=== PATIENT | male | born 1950 | race Caucasian/White ===

== ENCOUNTER 2021-02-01 06:15 | Outpatient (REF) | payer MEDICARE, SELFPAY ==
[2021-02-01 07:00] LABS: MANUAL DIFF FLAG NO
[2021-02-01 07:11] LABS: Basophils Percent Auto 0.6 % (0-2); Eosinophils Absolute Auto 0.1 X10*3/uL (0.0-0.4); Eosinophils Percent Auto 1.3 % (0-4); Imm Gran Abs Auto 0.05 X10*3/uL (0.00-0.03); Imm Gran Pct Auto 0.8 % (0.0-0.4); Lymphocytes Absolute Auto 1.6 X10*3/uL (1.2-4.9); Lymphocytes Percent Auto 24.6 % (20-40); Mean Corpuscular Hemoglobin 30.2 pg (27.0-33.0); Mean Corpuscular Volume 94.3 fL (80-98); Mean Platelet Volume 10.1 fL (9.4-12.4); Monocytes Absolute Auto 0.6 X10*3/uL (0.1-1.2); Monocytes Percent Auto 8.9 % (2-11); Neutrophils Absolute Auto 4.1 X10*3/uL (2.0-8.3); Neutrophils Percent Auto 63.8 % (45-73); Platelet Count 173 X10*3/uL (160-400); Red Cell Distribution Width 14.2 % (11.0-16.0); White Blood Count 6.4 X10*3/uL (4.8-10.8)
[2021-02-01 07:50] LABS: Alanine Aminotransferase 23 U/L (0-40); Albumin Level 4.1 g/dL (3.5-5.0); Alkaline Phosphatase 117 U/L (39-117); Anion Gap 12 (12-20); Aspartate Amino Transferase 25 U/L (5-37); Bilirubin Total 0.5 mg/dL (0.0-1.0); Blood Urea Nitrogen 21 mg/dL (9-16); Calcium 9.3 mg/dL (8.4-10.2); Carbon Dioxide 31 mmol/L (22-29); Chloride 105 mmol/L (96-108); Cholesterol 168 mg/dL; Estimated Glomerular Filt Rate 55; Glucose Fasting 107 mg/dL (60-99); HDL Cholesterol 51 mg/dL; LDL Cholesterol Calculated 93 mg/dl; Potassium 4.9 mmol/L (3.3-5.1); Sodium 143 mmol/L (135-145); Total Protein 6.6 g/dL (6.5-8.0); Triglycerides 124 mg/dL
[2021-02-01 08:07] LABS: Estimated Average Glucose 111 mg/dL; Hemoglobin A1c % 5.5 %
[2021-02-01 08:11] LABS: PSA,Total (Free>4and<10) 0.58 ng/mL (0.00-4.00)
== END 2021-02-01 06:16 | disposition home or self-care (01) ==
LOC: HO.LAB 06:15
PROVIDERS: PCP Internal Medicine; Visit Provider Internal Medicine
DX: I12.9 Hypertensive chronic kidney disease with stage 1 through stage 4 chronic kidney disease, or unspecified chronic kidney disease (principal); N18.9 Chronic kidney disease, unspecified; E78.00 Pure hypercholesterolemia, unspecified; J44.9 Chronic obstructive pulmonary disease, unspecified; R73.03 Prediabetes; Z12.5 Encounter for screening for malignant neoplasm of prostate
CPT/HCPCS: 36415; 80053; 80061; 83036; 84153; 85025

== ENCOUNTER 2021-02-20 12:37 | Outpatient (REF) | payer MEDICARE, SELFPAY ==
[2021-02-20 13:24] LABS: Prothrombin Time 12.4 SEC (10.8-13.0)
== END 2021-02-20 12:38 | disposition home or self-care (01) ==
LOC: HO.LAB 12:37
PROVIDERS: PCP Internal Medicine; Visit Provider Internal Medicine
DX: I48.0 Paroxysmal atrial fibrillation (principal)
CPT/HCPCS: 36415; 85610

== ENCOUNTER 2022-03-31 09:00 | Emergency (ER) | payer MEDICARE, SELFPAY ==
--- NOTE | ~2022-03-31 | XR_ITS ---
EXAMINATION: XR CHEST CLINICAL INFORMATION: Cough COMPARISON: CXR from 06/25/2014 TECHNIQUE: 2 views of the chest were obtained. FINDINGS: Lungs are mildly hyperinflated, and there is suggestion of saber sheath configuration of the trachea. Query if there is any history of chronic obstructive pulmonary disease. The bronchial saenz appear to be mildly thickened. Minimal linear opacity of atelectasis at the level of the lingula. No consolidation or pleural effusion. Cardiac silhouette is normal in size. The pulmonary vascular pattern is normal. The visualized bones are intact. XR/XR chest 2V IMPRESSION: * No evidence of pneumonia. * There are radiographic findings that can be seen in patients with chronic obstructive pulmonary disease. Question if there is history of COPD or smoking history. If an unexplained cough persists, and patient has risk factors, then noncontrast chest CT may be warranted for a more thorough evaluation of the lung parenchyma and airways.
[2022-03-31 09:57] VITALS: BP 174/64; PULSE 64; RESP 19; TEMP 36.6; O2SAT 95; BMI 39.2
--- NOTE | 2022-03-31 10:05 | ED_ITS ---
HPI - URI/Sore Throat General Chief Complaint: Upper Respiratory Symptoms Stated Complaint: cough Time Seen by Provider: 03/31/22 09:32 Source: patient, RN notes reviewed and old records reviewed Mode of arrival: ambulatory Limitations: no limitations History of Present Illness HPI Narrative: This is a 71-year-old male, with a past medical history COPD, hypertension, hyperlipidemia, TIA on Warfarin, who presents today with complaints of productive cough with white colored sputum x 3 weeks. He reports the cough keeps him up at night. He denies any sore throat, ear pain, nasal congestion, rhinorrhea, fevers, chills, shortness of breath, chest pain, palpitations, hemoptysis, nausea, vomiting, diarrhea, or abdominal pain. He has been taking DayQuil for symptoms which has prevented him with no relief. He denies any sick contacts. He was diagnosed with COPD 2 years ago, currently managed by his primary care physician, not currently on any COPD maintenance medications. No other complaints or concerns at this time. MD elicited complaint: cough Pertinent past history: COPD Onset (ago): week(s) (3) Consistency: constant Severity: mild Pain scale (0-10): 0 Description of mucous: other (white) Able to tolerate fluids by mouth: Yes Exacerbating factors: nothing Relieving factors: nothing Associated symptoms: cough Treatments prior to arrival: none Related Data Previous Rx's Medication Instructions Recorded albuterol sulfate 90 mcg/actuation 2 inh inhalation QID PRN shortness 03/31/22 aerosol inhaler of breath or wheezing #6.7 grams azithromycin 250 mg tablet See Rx Instructions PO .COMPLEX #6 03/31/22 (Zithromax Z-Jarad) tabs benzonatate 100 mg capsule 100 mg PO TID PRN cough #20 caps 03/31/22 nicotine (polacrilex) 4 mg gum 4 mg buccal Q2H #40 ea 03/31/22 prednisone 20 mg tablet 40 mg PO DAILY 5 days #10 tabs 03/31/22 Allergies Allergy/AdvReac Type Severity Reaction Status Date / Time No Known Allergies Allergy Unverified 06/08/20 14:52 [No Known Allergies*] Review of Systems Review of Systems: Constitutional: No Fever, No Chills ENT/Mouth: No sore throat, No Rhinorrhea, No Swallowing Difficulty Eyes: No Eye Pain, No Swelling, No Redness Cardiovascular: No Chest Pain, No SOB, No Orthopnea, No Edema Respiratory: +productive cough, No Wheezing, No dyspnea Gastrointestinal: No Nausea, No Vomiting, No Diarrhea, No abdominal Pain, No Hematochezia, No Melena Genitourinary: No Dysuria, No Urinary Frequency, No Hematuria Musculoskeletal: No joint pain, No Myalgias Skin: No Skin Lesions, No rash Neuro: No Weakness, No Numbness, No Dizziness, No Headache Psych: No Anxiety/Panic, No Depression Heme/Lymph: No Bruising, No Lymphadenopathy Endocrine: No Polyuria, No Polydipsia [facility] Social History Social History Advance Directives: No Advance Directives Information Provided: Yes Physical Exam Vital Signs: Vital Signs: Last Vital Signs Temp 96.8 F 03/31/22 11:30 Pulse 60 03/31/22 11:30 Resp 17 03/31/22 11:30 BP 147/77 H 03/31/22 11:30 Pulse Ox 95 03/31/22 11:30 O2 Del Method 03/31/22 11:30 BMI result Body Mass Index 39.2 Appearance: Alert. Oriented X3. No acute distress. Eyes: Pupils equal, round and reactive to light. Extra-occular motions are intact. ENT: Pharynx normal. Tonsils are nonerythematous, nonedematous, uvula is midline. Airway is patent. Auditory canals are clear, TMs nonerythematous, nonbulging. No cervical or anterior lymphadenopathy. Neck: Normal inspection. Neck supple. CVS: Normal heart rate and rhythm. Pulses normal. Respiratory: Coarse lung sounds with scattered rhonchi at the left bases, diminished throughout. No respiratory distress. Abdomen: Soft and nontender. +BS x4 Skin: Skin warm and dry. Normal skin color. Normal skin turgor. No rashes. Extremities: 1+ pitting edema noted bilaterally. No lower extremity edema. Neuro: Oriented X 3. No motor deficit. No sensory deficit. Course Course Course Narrative: This is a 71-year-old male, with a past her history of TIA on Warfarin, hypertension, and hyperlipidemia who presents today with productive cough x 3 weeks. On exam, patient has coarse and diminished lung sounds on exam. DDX: acute bronchitis, pneumonia, uri Plan: Chest X-ray, Duo-nebulizer, Prednisone 60mg PO, COVID testing ordered. Reevaluation(s) Reevaluation #1: Chest x-ray shows no evidence pneumonia. COVID negative. Patient was re-evaluated after updraft. Lungs sounds still coarse, but better air movement throughout all lung rowe. Patient reports some mild improvement, vital signs remained stable throughout his stay. Will treat as an acute bronchitis, will give 5 day course of prednisone (start tomorrow, as given first dose in ED), azithromycin, Tessalon, albuterol inhaler, and nicotine gum. Educated to cut Warfarin dose in half while taking the Azithromycin, and resume his normal dose once the antibiotic is completed per pharmacy recommendations. He is advised to follow-up with his primary care physician next week, also given a referral to a [employer] to be followed for COPD. Patient understands and agrees with plan. Time: 11:26 MDM - URI/Sore Throat Lab Data Labs: Lab Results 03/31/22 Range/Units 09:58 COVID-19 (JAZZY) Negative (Negative) COVID-19 Clin Com See Note Imaging Data Chest x-ray: Attestation: I personally reviewed and interpreted this imaging study as follows: Radiologist's impression: No evidence of pneumonia. There are radiographic findings that can be seen in patients with chronic obstructive pulmonary disease. Question if there is a history of COPD or smoking history. If an unexplained cough persists, and patient has risk factors, and noncontrast chest CT may be warranted for more thorough evaluation the lung parenchyma and airways. Dictated by: Brady Macario MD Critical Care Time Critical Care Time Critical Care Time: No Discharge Plan Discharge Clinical Impression: Bronchitis, COPD (chronic obstructive pulmonary disease) Patient Disposition: Home, Self-Care Instructions: Acute Bronchitis (ED), COPD (Chronic Obstructive Pulmonary Disease) (ED) Additional Instructions: Please take the prescribed antibiotic, Azithromycin, as directed. Complete the antibiotic prescription, even if your symptoms improve. Cut your warfarin dosage in half while taking Azithromycin as this increases your bleeding risk. Resume your normal warfarin dosage once you complete the Azithromycin. Please take the albuterol inhaler as needed for shortness of breath or wheezing. Please take Benzonatate three times a day as needed for cough. You can also try over the counter Mucinex. Please take the prednisone prescription as directed. Drink plenty of fluids and get plenty of rest. Please follow up with your primary care physician, and call the attached referral, [employer] for further management and treatment of your COPD. Stop Smoking. Try nicotine gum. Your chest x-ray today showed no evidence of pneumonia. If you develop new or worsening symptoms call 911 or come back to the ER for further evaluation. Prescriptions: New azithromycin [Zithromax Z-Jarad] 250 mg tablet See Rx Instructions .ROUTE .COMPLEX Qty: 6 0RF Rx Instructions: take 500 mg today (day 1), then 250 mg for 4 days (days 2-5) prednisone 20 mg tablet 40 mg PO DAILY 5 Days Qty: 10 0RF albuterol sulfate 90 mcg/actuation HFA aerosol inhaler 2 inh inhalation QID PRN (Reason: shortness of breath or wheezing) Qty: 6.7 0RF benzonatate 100 mg capsule 100 mg PO TID PRN (Reason: cough) Qty: 20 0RF nicotine (polacrilex) 4 mg gum 4 mg buccal Q2H Qty: 40 0RF Referrals: Erwin Serrato MD [Physician] - (COPD, not managed on any maintenance medications. ) Interventions: ED Discharge Assessment Last Done: 03/31/22 11:40 Discharge Date/Time: 03/31/22 11:40
[2022-03-31 10:15] LABS: COVID-19 Test Negative (Negative)
[2022-03-31] MEDS: Albuterol/Iprat 2.5/0.5MG 3 ML AMPUL.NEB INHALE (10:52)
[2022-03-31 10:54] VITALS: PULSE 61; RESP 14; O2SAT 98
[2022-03-31] MEDS: predniSONE 20 MG TABLET 60 MG PO (11:02)
[2022-03-31 11:30] VITALS: BP 147/77; PULSE 60; RESP 17; TEMP 36; O2SAT 95
== END 2022-03-31 11:40 | disposition home or self-care (01) ==
PROVIDERS: Physician Assistant; Emergency Provider Emergency Medicine; PCP Internal Medicine
DX: J44.9 Chronic obstructive pulmonary disease, unspecified (principal); Z20.822 Contact with and (suspected) exposure to COVID-19; R60.0 Localized edema; I10 Essential (primary) hypertension; E78.5 Hyperlipidemia, unspecified; Z86.73 Personal history of transient ischemic attack (TIA), and cerebral infarction without residual deficits; Z79.01 Long term (current) use of anticoagulants; Z87.891 Personal history of nicotine dependence
CPT/HCPCS: 71046; 87635; 94640; 99284

== ENCOUNTER 2022-08-14 12:02 | Outpatient (REF) | payer MEDICARE, SELFPAY ==
[2022-08-14 12:40] LABS: MANUAL DIFF FLAG NO
[2022-08-14 12:41] LABS: Basophils Percent Auto 0.7 % (0-2); Eosinophils Absolute Auto 0.1 X10*3/uL (0.0-0.4); Eosinophils Percent Auto 1.6 % (0-4); Hematocrit 49.1 % (42.0-52.0); Hemoglobin 16.3 g/dl (14.0-18.0); Imm Gran Abs Auto 0.02 X10*3/uL (0.00-0.03); Imm Gran Pct Auto 0.4 % (0.0-0.4); Lymphocytes Absolute Auto 1.5 X10*3/uL (1.2-4.9); Lymphocytes Percent Auto 27.2 % (20-40); Mean Corpuscular HGB Conc 33.2 g/dl (31.0-36.0); Mean Corpuscular Hemoglobin 30.5 pg (27.0-33.0); Mean Corpuscular Volume 91.8 fL (80.0-98.0); Mean Platelet Volume 9.5 fL (9.4-12.4); Monocytes Absolute Auto 0.4 X10*3/uL (0.1-1.2); Monocytes Percent Auto 7.7 % (2-11); Neutrophils Absolute Auto 3.4 x10*3/uL (2.0-8.3); Neutrophils Percent Auto 62.4 % (45-73); Platelet Count 145 X10*3/uL (160-400); Red Blood Count 5.35 X10*6/uL (4.60-5.80); Red Cell Distribution Width 13.4 % (11.0-16.0); White Blood Count 5.5 X10*3/uL (4.8-10.8)
[2022-08-14 12:43] LABS: Appearance Urine Clear; Color Urine Yellow; Glucose Urine UA Negative (Negative); Leukocyte Esterase Urine Negative (Negative); Nitrite Urine Negative (Negative); PH 5.5 (5.0-9.0); Specific Gravity - Urine 1.015 (1.005-1.025); UMIC TRIGGER UA YES; Urine Blood Small (1+) (Negative); Urine Ketones Negative (Negative); Urine Protein 300 (3+) mg/dL (Neg-Trace)
[2022-08-14 12:51] LABS: Bacteria Urine None Seen (None Seen); Hyaline Casts Urine 0-2 /LPF (0-2); Squamous Epithelial Cell Urine 0-2 /HPF (0-2); WBC Urine 0-5 /HPF (0-5)
[2022-08-14 13:51] LABS: Alanine Aminotransferase 22 U/L (0-40); Albumin Level 3.7 g/dL (3.5-5.0); Alkaline Phosphatase 109 U/L (39-117); Anion Gap 15 (12-20); Aspartate Amino Transferase 32 U/L (5-37); Bilirubin Total 0.5 mg/dL (0.0-1.0); Blood Urea Nitrogen 19 mg/dL (9-16); Calcium 8.9 mg/dL (8.4-10.2); Carbon Dioxide 28 mmol/L (22-29); Chloride 104 mmol/L (96-108); Cholesterol 185 mg/dL; Estimated Glomerular Filt Rate > 60; Glucose Random 96 mg/dL (60-115); Potassium 4.7 mmol/L (3.3-5.1); Prostate Specific Antigen Scr 0.79 ng/mL (<0.05-4.0); Sodium 142 mmol/L (135-145); Total Protein 6.4 g/dL (6.5-8.0)
== END 2022-08-14 12:03 | disposition home or self-care (01) ==
LOC: HO.10HDL 12:02
PROVIDERS: Visit Provider Internal Medicine
DX: Z12.5 Encounter for screening for malignant neoplasm of prostate (principal); I10 Essential (primary) hypertension; J44.9 Chronic obstructive pulmonary disease, unspecified; E78.00 Pure hypercholesterolemia, unspecified
CPT/HCPCS: 36415; 80053; 81001; 82465; 84153; 85025

== ENCOUNTER 2023-08-22 11:17 | Outpatient (REF) | payer MEDICARE, SELFPAY ==
[2023-08-22 11:34] LABS: MANUAL DIFF FLAG NO
[2023-08-22 12:20] LABS: Basophils Absolute Auto 0.1 X10*3/uL (0.0-0.2); Eosinophils Absolute Auto 0.1 X10*3/uL (0.0-0.4); Hematocrit 47.5 % (42.0-52.0); Hemoglobin 15.8 g/dl (14.0-18.0); Imm Gran Abs Auto 0.02 X10*3/uL (0.00-0.03); Imm Gran Pct Auto 0.3 % (0.0-0.4); Lymphocytes Absolute Auto 1.3 X10*3/uL (1.2-4.9); Lymphocytes Percent Auto 22.4 % (20-40); Mean Corpuscular HGB Conc 33.3 g/dl (31.0-36.0); Mean Corpuscular Hemoglobin 30.1 pg (27.0-33.0); Mean Corpuscular Volume 90.5 fL (80.0-98.0); Mean Platelet Volume 9.9 fL (9.4-12.4); Monocytes Absolute Auto 0.5 X10*3/uL (0.1-1.2); Monocytes Percent Auto 7.7 % (2-11); Neutrophils Percent Auto 67.6 % (45-73); Platelet Count 150 X10*3/uL (160-400); Red Blood Count 5.25 X10*6/uL (4.60-5.80); Red Cell Distribution Width 13.6 % (11.0-16.0); White Blood Count 5.9 X10*3/uL (4.8-10.8)
[2023-08-22 12:24] LABS: Appearance Urine Clear; Color Urine Yellow; Glucose Urine UA Negative (Negative); Leukocyte Esterase Urine Negative (Negative); Nitrite Urine Negative (Negative); PH 5.5 (5.0-9.0); Specific Gravity - Urine 1.015 (1.005-1.025); UMIC TRIGGER UA YES; Urine Blood Small (1+) (Negative); Urine Ketones Negative (Negative); Urine Protein 300 (3+) mg/dL (Neg-Trace)
[2023-08-22 12:28] LABS: Prothrombin Time 11.6 SEC (11.1-13.3)
[2023-08-22 12:42] LABS: Bacteria Urine Trace (None Seen); Hyaline Casts Urine 0-2 /LPF (0-2); RBC Urine 0-2 /HPF (0-2); Squamous Epithelial Cell Urine 0-2 /HPF (0-2); WBC Urine 0-5 /HPF (0-5)
[2023-08-22 12:53] LABS: Alanine Aminotransferase 19 U/L (0-40); Albumin Level 3.8 g/dL (3.5-5.0); Alkaline Phosphatase 111 U/L (39-117); Anion Gap 13 (12-20); Aspartate Amino Transferase 28 U/L (5-37); Bilirubin Total 0.4 mg/dL (0.0-1.0); Blood Urea Nitrogen 18 mg/dL (9-16); Calcium 9.2 mg/dL (8.4-10.2); Carbon Dioxide 28 mmol/L (22-29); Chloride 105 mmol/L (96-108); Cholesterol 174 mg/dL (<200); Estimated Glomerular Filt Rate 51; Glucose Fasting 92 mg/dL (60-99); HDL Cholesterol 55 mg/dL (>40); LDL Cholesterol Calculated 81 mg/dL (<100); Potassium 4.7 mmol/L (3.3-5.1); Sodium 141 mmol/L (135-145); Total Protein 6.9 g/dL (6.5-8.0); Triglycerides 194 mg/dL (<150)
== END 2023-08-22 11:18 | disposition home or self-care (01) ==
LOC: HO.LAB 11:17
PROVIDERS: PCP Internal Medicine; Visit Provider Internal Medicine
DX: Z12.5 Encounter for screening for malignant neoplasm of prostate (principal); J44.9 Chronic obstructive pulmonary disease, unspecified; I10 Essential (primary) hypertension; E78.00 Pure hypercholesterolemia, unspecified; I48.0 Paroxysmal atrial fibrillation; N40.0 Benign prostatic hyperplasia without lower urinary tract symptoms
CPT/HCPCS: 36415; 80053; 80061; 81001; 84153; 85025; 85610

== ENCOUNTER 2023-09-22 08:27 | Emergency (ER) | payer MEDICARE, SELFPAY ==
--- NOTE | ~2023-09-22 | XR_ITS ---
EXAMINATION: XR CHEST CLINICAL INFORMATION: Shortness of breath. COMPARISON: Most recent chest radiograph dated 03/31/2022. TECHNIQUE: Two views of the chest were obtained. FINDINGS: Minimal left basilar atelectasis. No focal airspace consolidation. No pleural effusion or pneumothorax. Stable cardiomediastinal silhouette. Mild hyperexpansion of the lung apices with saber-sheath appearance of the trachea, unchanged. Findings can be seen in the setting of COPD. XR/XR chest 2V IMPRESSION: Minimal left basilar atelectasis. Chronic findings which can be seen in the setting of COPD, unchanged.
[2023-09-22 08:53] VITALS: BP 118/64; PULSE 118; RESP 16; TEMP 36.6; O2SAT 95; BMI 72.7
[2023-09-22 09:24] LABS: COVID-19 Test Negative (Negative); IDNOW Serial# 08D9AD1C; IDNOW Serial# BCCEAD1C; Influenza A Negative (Negative); Influenza B2 Negative (Negative)
[2023-09-22 13:52] VITALS: BP 133/59; PULSE 76; RESP 16; TEMP 36.6; O2SAT 95
--- NOTE | 2023-09-22 14:01 | ED.URI ---
HPI - URI/Sore Throat General Chief Complaint: Upper Respiratory Symptoms Stated Complaint: Diff breathing Time Seen by Provider: 09/22/23 13:48 Source: patient and family Mode of arrival: ambulatory Limitations: no limitations History of Present Illness HPI Narrative: Patient comes to the emergency room accompanied by his . Patient states that for 1 week he has been coughing. Patient reports no chest pain, no fever or chills. No increase in sputum production, no oxygen desaturations. Related Data Previous Rx's Medication Instructions Recorded albuterol sulfate 90 mcg/actuation 2 inh inhalation QID PRN shortness 03/31/22 aerosol inhaler of breath or wheezing #6.7 grams azithromycin 250 mg tablet See Rx Instructions PO .COMPLEX #6 03/31/22 (Zithromax Z-Jarad) tabs benzonatate 100 mg capsule 100 mg PO TID PRN cough #20 caps 03/31/22 nicotine (polacrilex) 4 mg gum 4 mg buccal Q2H #40 ea 03/31/22 prednisone 20 mg tablet 40 mg (2 x 20 mg) PO DAILY 5 days 03/31/22 #10 tabs albuterol sulfate 90 mcg/actuation 2 puff inhalation Q4-6H PRN 09/22/23 aerosol inhaler shortness of breath or wheezing #8.5 grams benzonatate 100 mg capsule 100 mg PO TID PRN cough #10 caps 09/22/23 prednisone 50 mg tablet 50 mg PO DAILY #4 tabs 09/22/23 Allergies Allergy/AdvReac Type Severity Reaction Status Date / Time No Known Allergies Allergy Verified 09/22/23 08:55 [No Known Allergies*] Review of Systems Review of Systems: Constitutional : No Weight loss, No Fever, No Chills, No Night Sweats, No Fatigue, No Malaise ENT/Mouth : No Hearing loss, No Ear Pain, No Nasal Congestion, No Sinus Pain, No Hoarseness, No sore throat, No Rhinorrhea, No Swallowing Difficulty Eyes: No Eye Pain, No Swelling, No Redness, No Foreign Body, No Discharge, No Vision Changes Cardiovascular : No Chest Pain, No SOB, No Dyspnea on Exertion, No Orthopnea, No Edema, No Palpitations Respiratory : Complaining of dry cough, intermittent wheezing, No Dyspnea Gastrointestinal : No Nausea, No Vomiting, No Diarrhea, No Constipation, No abdominal Pain, No Hematochezia, No Melena Genitourinary : no irregular bleeding, No Dysuria, No Urinary Frequency, No Hematuria, No Urinary Incontinence, No Urgency, No Flank Pain, No Urinary Flow Changes, No Hesitancy Musculoskeletal : No joint pain, No Myalgias, No Joint Swelling Skin : No Skin Lesions, No rash Neuro : No Weakness, No Numbness, No Paresthesias, No Loss of Consciousness, No Dizziness, No Headache Psych : No Anxiety/Panic, No Depression, No SI/HI/AH/VH, No Social Issues, Heme/Lymph: No Bruising, No Bleeding,No Lymphadenopathy Endocrine : No Polyuria, No Polydipsia, No Temperature Intolerance PMFSH Past Medical History Onset Date is defined in the Problem List Problems that require an onset date and time if occurred within 24 hrs of arrival to the ED Aortic Dissection and Rupture; Neurologic impairment; Cardiopulmonary Arrest; Endotracheal Intubation; Insertion or Replacement of Mechanical Circulatory Assist Device Medical History (Updated 09/22/23 @ 14:11 by Li Wade MD) Hypertension 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 Oriented X3. No acute distress. Eyes: Pupils equal, round and reactive to light. ENT: Pharynx normal. Neck: Normal inspection. Neck supple. No lymph nodes noted. No crepitus CVS: Normal heart rate and rhythm. Pulses normal. Normal S1 and S2 Respiratory: No respiratory distress. Breath sounds normal. No Wheezing. No rales Abdomen: Soft and nontender. No rigidity. No distention. Skin: Skin warm and dry. Normal skin color. Normal skin turgor. Extremities: No lower extremity edema. No Lacerations. No Rash Neuro: Oriented X 3. No motor deficit. No sensory deficit. Moving all extremities. No slurred speech. CN 2 through 12 grossly intact Psych: calm, cooperative, normal affect Medical Decision Making Medical Decision Making [facility] Narrative: -on physical exam, patient's lungs are clear, no wheezing -my interpretation of chest x-ray: No infiltrates -my interpretation of labs: Negative for influenza and COVID Differential Diagnosis Differential Diagnoses: The differential diagnosis associated with the presentation includes (Pneumonia, COVID, influenza, viral URI, chronic lung disease) Lab Data [facility] Lab Attestation statement: I reviewed the patient's lab results. Labs: Lab Results 09/22/23 Range/Units 09:04 COVID-19 (JAZZY) Negative (Negative) COVID-19 Clin Com See Note Influenza Type A (BUCKY) Negative (Negative) Influenza Type B (BUCKY) Negative (Negative) Influenza A & B Note See Note Independent Interpretation I performed an independent interpretation of an: Plain X-Ray Radiology Impression Discussion of test interpretation with radiology: I have reviewed the radiologist's reading. Radiologist Impression: Minimal left basilar atelectasis. No focal airspace consolidation. No pleural effusion or pneumothorax. Stable cardiomediastinal silhouette. Mild hyperexpansion of the lung apices with saber-sheath appearance of the trachea, unchanged. Findings can be seen in the setting of COPD. XR/XR chest 2V IMPRESSION: Minimal left basilar atelectasis. Chronic findings which can be seen in the setting of COPD, unchanged. Discharge Plan Discharge Clinical Impression: Viral bronchitis Patient Disposition: Home, Self-Care Instructions: Acute Bronchitis (ED) Additional Instructions: Please follow-up with your primary care physician tomorrow. If you have any worsening or new symptoms, please return to the emergency room or call 911 Prescriptions: New albuterol sulfate 90 mcg/actuation HFA aerosol inhaler 2 puff inhalation Q4-6H PRN (Reason: shortness of breath or wheezing) Qty: 8.5 1RF prednisone 50 mg tablet 50 mg PO DAILY Qty: 4 0RF benzonatate 100 mg capsule 100 mg PO TID PRN (Reason: cough) Qty: 10 0RF No Action azithromycin [Zithromax Z-Jarad] 250 mg tablet See Rx Instructions .ROUTE .COMPLEX Qty: 6 0RF Rx Instructions: take 500 mg today (day 1), then 250 mg for 4 days (days 2-5) prednisone 20 mg tablet 40 mg PO DAILY 5 Days Qty: 10 0RF albuterol sulfate 90 mcg/actuation HFA aerosol inhaler 2 inh inhalation QID PRN (Reason: shortness of breath or wheezing) Qty: 6.7 0RF benzonatate 100 mg capsule 100 mg PO TID PRN (Reason: cough) Qty: 20 0RF nicotine (polacrilex) 4 mg gum 4 mg buccal Q2H Qty: 40 0RF
[2023-09-22] MEDS: Benzonatate 100 MG CAPSULE PO (14:11)
[2023-09-22] MEDS: predniSONE 20 MG TABLET 60 MG PO (14:12)
== END 2023-09-22 14:28 | disposition home or self-care (01) ==
PROVIDERS: Emergency Provider Emergency Medicine; PCP Internal Medicine
DX: J20.8 Acute bronchitis due to other specified organisms (principal); I10 Essential (primary) hypertension; J44.9 Chronic obstructive pulmonary disease, unspecified; Z79.01 Long term (current) use of anticoagulants; Z11.52 Encounter for screening for COVID-19
CPT/HCPCS: 71046; 87502; 87635; 99283; 99284

== ENCOUNTER 2024-04-19 13:23 | Inpatient (IN) | payer MEDICARE, SELFPAY ==
[2024-04-19] VITALS (11 sets, daily range): BP systolic 103–148; BP diastolic 57–109; PULSE 100–149; RESP 20–24; TEMP 36.4–36.6; O2SAT 96–98; BMI 37.8
--- NOTE | 2024-04-19 | ECG_ITS ---
Test Reason : tachycardia Blood Pressure : / mmHG Vent. Rate : 150 BPM Atrial Rate : 150 BPM P-R Int : 150 ms QRS Dur : 122 ms QT Int : 352 ms P-R-T Axes : 038 -31 037 degrees QTc Int : 556 ms SVT vs atrial flutter Left axis deviation Right bundle branch block Inferior infarct , age undetermined Anterolateral infarct - Q waves and ST elevations. Abnormal ECG When compared with ECG of 25-JUN-2014 21:49, Significant changes compared to previous ECG including anterolateral infarct with ST elevations. Referred By: Generic ED Physician Electronically Signed By:Marvel Devlin
--- NOTE | ~2024-04-19 | XR_ITS ---
EXAMINATION: XR CHEST CLINICAL INFORMATION: Chest pain COMPARISON: 09/22/2023 TECHNIQUE: Frontal view of the chest was obtained. FINDINGS: Since the prior study, a left chest wall 3-lead pacemaker has been placed in good position. The heart remains mildly enlarged. There is no gross evidence of CHF. The lungs are hyperinflated, better demonstrated on the prior study when there was a lateral radiograph. Some bibasilar scarring is present. There is an ill-defined area of increased density seen which overlies the fourth anterior left rib likely a compilation of shadows with similar findings seen on the right. No gross consolidation. XR/XR chest 1V IMPRESSION: No acute intrathoracic disease. Interval placement of pacemaker.
--- NOTE | 2024-04-19 13:37 | ED_ITS ---
HPI - Arrhythmia/Palpitations General Chief Complaint: Arrhythmia/Palpitations Stated Complaint: TACHY 140-150 X 2 DAYS, RECENT STEMI Time Seen by Provider: 04/19/24 13:30 Source: patient Mode of arrival: EMS History of Present Illness HPI narrative: This is a 73 [facility], he arrived with a heart rate of about 140-150. Patient has history of STEMI complicated by cardiac arrest he had a complete heart block Ed dual-chamber ICD. MD complaint: rapid heart beat, heart racing and palpitations Onset (ago): day(s) (1) Duration: constant Severity: moderate Context: occurred during rest Arrhythmia history: AICD Associated symptoms: denies other symptoms Related Data Previous Rx's ?Medication ?Instructions ?Recorded albuterol sulfate 90 mcg/actuation 2 inh inhalation QID PRN shortness 03/31/22 aerosol inhaler of breath or wheezing #6.7 grams azithromycin 250 mg tablet See Rx Instructions PO .COMPLEX #6 03/31/22 (Zithromax Z-Jarad) tabs benzonatate 100 mg capsule 100 mg PO TID PRN cough #20 caps 03/31/22 nicotine (polacrilex) 4 mg gum 4 mg buccal Q2H #40 ea 03/31/22 prednisone 20 mg tablet 40 mg (2 x 20 mg) PO DAILY 5 days 03/31/22 #10 tabs albuterol sulfate 90 mcg/actuation 2 puff inhalation Q4-6H PRN 09/22/23 aerosol inhaler shortness of breath or wheezing #8.5 grams benzonatate 100 mg capsule 100 mg PO TID PRN cough #10 caps 09/22/23 prednisone 50 mg tablet 50 mg PO DAILY #4 tabs 09/22/23 Allergies Allergy/AdvReac Type Severity Reaction Status Date / Time No Known Allergies Allergy Verified 04/19/24 13:45 [No Known Allergies*] Review of Systems 2 Eyes: Eyes: Reports no additional eye complaints Cardiovascular: Cardiovascular: Reports no additional cardiovascular complaints [facility] Past Medical History Attestation statement: The following information was validated with the patient. [facility] Narrative: Cardiac arrest complicated by complete heart block requiring dual-chamber pacemaker ICD Medical History Hypertension Hx of long-term use of blood thinners COPD (chronic obstructive pulmonary disease) Social History Social History Smoked in Last 30 Days: No Use of substances other than those prescribed or required for medical reasons: No Advance Directives: No Advance Directives Information Provided: Yes Do you have a plan to hurt others: No Plan Physical Exam 2 Vital Signs: Vital Signs: Last Vital Signs Temp 97.5 F 04/19/24 14:42 Pulse 147 H 04/19/24 14:42 Resp 24 H 04/19/24 14:42 BP 148/109 H 04/19/24 14:42 Pulse Ox 98 04/19/24 14:42 O2 Del Method Room Air 04/19/24 14:42 BMI result Body Mass Index 37.8 Const: General: cooperative Nutritional Appearance: well nourished O rientation/consciousness: oriented to person and patient oriented x3 HEENT: Head: Yes normal to inspection Ears: hearing grossly normal bilaterally Face and sinus: Yes normal facial exam Throat: Yes posterior oropharynx normal Neck: Neck: Yes normal visual inspection Resp: Effort & Inspection: normal respiratory effort Auscultation: clear to auscultation bilaterally Cardio: Jugular venous distension: no JVD Rate: tachycardic GI: Inspection: Yes normal to inspection Palpation (GI): Soft to palpation, not firm and nontender Auscultation: normal bowel sounds Skin: General skin exam: no rashes or lesions noted and elasticity normal L esions: no lesions Neuro: General: oriented to person and patient oriented x3 Cranial nerves: Yes CN's II-XII intact bilaterally Course Reevaluation(s) Reevaluation #1: 5 mg lopressor x2 IV no changes Time: 14:17 Reevaluation #2: Adenosine 6 mg showed that th pt is in atrial flutter Reevaluation #3: seen by Dr Devlin cardiology Time: 14:18 Medications Administered Discontinued Medications Generic Name Dose Route Start Last Admin Trade Name Viridiana PRN Reason Stop Dose Admin Adenosine 6 mg 04/19/24 14:02 04/19/24 14:15 Adenosine 6 Mg/2 Ml Vial IVPUSH 04/19/24 14:03 6 mg ONCE ONE Administration Digoxin 0.25 mg 04/19/24 14:12 04/19/24 14:19 Digoxin 0.5 Mg/2 Ml Ampul IVPUSH 04/19/24 14:13 0.25 mg ONCE ONE Administration Digoxin 0.25 mg 04/19/24 14:12 04/19/24 14:19 Digoxin 0.5 Mg/2 Ml Ampul IVPUSH 04/19/24 14:13 0.25 mg ONCE ONE Administration Metoprolol Tartrate 5 mg 04/19/24 13:35 04/19/24 13:47 Metoprolol Tartrate 5 Mg/5 Ml Vial IVPUSH 04/19/24 13:36 5 mg ONCE ONE Administration Protocol Metoprolol Tartrate 5 mg 04/19/24 13:43 04/19/24 13:47 Metoprolol Tartrate 5 Mg/5 Ml Vial IVPUSH 04/19/24 13:44 5 mg ONCE ONE Administration Protocol Medical Decision Making Medical Decision Making [facility] Narrative: Patient presented with tachycardia will get labs EKG reassess Differential Diagnosis Differential Diagnoses: The differential diagnosis associated with the presentation includes SVT/rapid AFib/rapid flutter Admission/Observation Consideration of admission/observation: Escalation of care including admission/observation considered Consult Healthcare Provider Management of the patient was discussed with: Hospitalist Dr Devlin (back pad inspector) Lab Data [facility] Lab Attestation statement: I reviewed the patient's lab results. 04/19/24 14:01 04/19/24 14:01 Labs: Lab Results 04/19/24 Range/Units 14:01 WBC 6.2 (4.8-10.8) X10*3/uL RBC 3.19 L D (4.60-5.80) X10*6/uL Hgb 9.9 L D (14.0-18.0) g/dl Hct 30.3 L D (42.0-52.0) % MCV 95.0 (80.0-98.0) fL MCH 31.0 (27.0-33.0) pg MCHC 32.7 (31.0-36.0) g/dl RDW 15.0 (11.0-16.0) % Plt Count 161 (160-400) X10*3/uL MPV 9.9 (9.4-12.4) fL Immature Gran % (Auto) 0.5 H (0.0-0.4) % Neut % (Auto) 65.5 (45-73) % Lymph % (Auto) 22.0 (20-40) % [place] % (Auto) 8.2 (2-11) % Eos % (Auto) 2.4 (0-4) % Baso % (Auto) 1.4 (0-2) % Lymph # (Auto) 1.4 (1.2-4.9) X10*3/uL [place] # (Auto) 0.5 (0.1-1.2) X10*3/uL Eos # (Auto) 0.2 (0.0-0.4) X10*3/uL Baso # (Auto) 0.1 (0.0-0.2) X10*3/uL Abs Immat Gran (auto) 0.03 (0.00-0.03) X10*3/uL Absolute Neuts (auto) 4.1 (2.0-8.3) x10*3/uL Absolute Nucleated RBC 0.000 (0.0-0.012) X10*3/uL Nucleated RBC % (auto) 0.0 (0.0-0.2) /100WBC PT 13.2 (11.1-13.3) SEC INR 1.1 (0.9-1.1) Sodium 142 (135-145) mmol/L Potassium 4.1 (3.3-5.1) mmol/L Chloride 107 (96-108) mmol/L Carbon Dioxide 22 (22-29) mmol/L Anion Gap 17 (12-20) BUN 57 H (9-16) mg/dL Creatinine 3.75 H (0.5-1.4) mg/dL Estim Creat Clear Calc 22.3 Estimated GFR 16 Random Glucose 105 (60-115) mg/dL Calcium 8.8 (8.4-10.2) mg/dL Total Bilirubin 0.9 (0.0-1.0) mg/dL AST 24 (5-37) U/L ALT 23 (0-40) U/L Alkaline Phosphatase 247 H (39-117) U/L Troponin I High Sens 121.1 H* (<3.5-35.0) ng/L Total Protein 6.8 (6.5-8.0) g/dL Albumin 3.5 (3.5-5.0) g/dL Independent Interpretation I performed an independent interpretation of an: EKG and Rhythm Strip Interpretation: I personally review and interpreted the EKG rhythm strips as atrial flutter with rapid ventricular response Radiology Impression Discussion of test interpretation with radiology: I have reviewed the radiologist's reading. Independent Historian Clinical information obtained from an independent historian. History obtained from or confirmed by: EMS [facility] record External Record Review External record reviewed: Outpatient record [facility] record Chronic Conditions CAD/pacemaker Critical Care Time Critical Care Time Critical Care Time: Yes Total Critical Care Time: 90 Attestation: iv [id number],IV adenosin,IV digoxin Discharge Plan Discharge Patient Disposition: Admitted As Inpatient Print Language: Mongolian
[2024-04-19] MEDS: Metoprolol Tartrate 5 MG/5 ML VIAL IVPUSH ×3 (13:47→17:56)
[2024-04-19 14:09] LABS: MANUAL DIFF FLAG NO
[2024-04-19] MEDS: Adenosine 6 MG/2 ML VIAL IVPUSH (14:15)
--- NOTE | 2024-04-19 14:15 | PM.CNCAR ---
History of Present Illness History of Present Illness Date of Service: 04/19/24 Requesting physician: Darrian Haynes Chief complaint: TACHY 140-150 X 2 DAYS, RECENT cardiac arrest Narrative: 73-year-old gentleman who recently left [facility] after he presented with cardiac arrest with ventricular fibrillation and cardiogenic shock with ischemic cardiomyopathy EF of 30-35% with akinesis of anterior wall and apex. Cardiac catheterization showed [employer] of the LAD and proximal right coronary artery with 70% stenosis in the circumflex artery. He was referred for bypass surgery but was felt not a good candidate for surgery. Subsequently developed complete heart block and had a dual-chamber ICD placed and discharged to rehab. He was on aspirin and Plavix. Carvedilol 6.25 mg twice a day and isosorbide hydralazine combination. Apparently while at rehab today he was noticed to be more confused and tachycardic. Based on the chart review in [facility] he had encephalopathy post cardiac arrest and there was some question about anoxic injury also. In any case he is little confused currently. His heart rate is 150 beats per minute in concern is whether he has SVT versus atrial flutter. He is denying any chest pain or shortness of breath. We tried 6 mg of adenosine which slowed his heart rate and we clearly saw flutter waves in the background. No further adenosine was tried after that. [facility] Past Medical History Medical History Hypertension Hx of senior care use of blood thinners COPD (chronic obstructive pulmonary disease) Meds Allergies Allergy/AdvReac Type Severity Reaction Status Date / Time No Known Allergies Allergy Verified 04/19/24 13:45 [No Known Allergies*] Physical Exam Vital Signs: Vital Signs: Last Vital Signs Temp 97.5 F 04/19/24 13:41 Pulse 147 H 04/19/24 13:41 Resp 24 H 04/19/24 13:41 BP 148/109 H 04/19/24 13:41 Pulse Ox 98 04/19/24 13:41 O2 Del Method Room Air 04/19/24 13:41 BMI result Body Mass Index 37.8 GENERAL APPEARANCE: Obese, in no distress. Confused. NECK: no carotid bruit, no obvious jugular venous distention. SKIN: no suspicious lesions, warm and dry. HEART: no murmurs, regular tachycardic. LUNGS: clear to auscultation anteriorly. ABDOMEN: soft, nontender. EXTREMITIES: no edema. PERIPHERAL PULSES: equal. NEUROLOGIC: No gross deficits, confused. Objective Labs and Meds 04/19/24 14:01 04/19/24 14:01 Assessment and Plan (1) Atrial flutter: Status: Acute (2) Ischemic cardiomyopathy: Status: Acute Plan 73 year gentleman with complex cardiovascular history with recent cardiac arrest from ventricular fibrillation and cardiogenic shock for which he was supported with Impella. Cardiac catheterization showed [employer] of LAD and RCA with 70% circumflex stenosis. He was referred for bypass surgery but was deemed not a good surgical candidate. Subsequently developed complete heart block and had dual lead ICD placed. He was discharged to nursing facility from where he is presenting now with confusion and tachycardia. It appears he had some encephalopathy after cardiac arrest. His initial blood pressure was 148/109. Currently his blood pressure is 100/60 after receiving IV metoprolol. We gave him 6 mg of adenosine which clearly showed atrial flutter as the underlying rhythm. He subsequently went back into heart rates of 140s to 150s. Avoid Cardizem and verapamil. Metoprolol 25 mg 3 times a day. Give him digoxin 500 mcg IV followed by a 2nd dose in 6 hours. He has ICD which has pacemaker function too and will not let his heart rate goes below 40. He was discharged on aspirin and Plavix. Wait for his labs to come back. If his creatinine is good and he is not in acute renal failure then give him Eliquis 5 mg twice a day and in that situation aspirin can be stopped. If on the other hand he has acute kidney injury then can use heparin or Lovenox. Hold home dose of carvedilol. Hold hydralazine and isosorbide till his blood pressure improves. Thank you for allowing me to participate in the care of your patient. Please feel free to contact me if you have any questions. Procedures Date of Service Date of Service: 04/19/24
[2024-04-19 14:18] LABS: INTERNATIONAL NORM RATIO 1.1 (0.9-1.1); Prothrombin Time 13.2 SEC (11.1-13.3)
[2024-04-19] MEDS: Digoxin 0.5 MG/2 ML AMPUL 0.25 MG IVPUSH ×3 (14:19→17:13)
[2024-04-19 14:23] LABS: Basophils Absolute Auto 0.1 X10*3/uL (0.0-0.2); Basophils Percent Auto 1.4 % (0-2); Eosinophils Absolute Auto 0.2 X10*3/uL (0.0-0.4); Eosinophils Percent Auto 2.4 % (0-4); Hematocrit 30.3 % (42.0-52.0); Hemoglobin 9.9 g/dl (14.0-18.0); Imm Gran Abs Auto 0.03 X10*3/uL (0.00-0.03); Imm Gran Pct Auto 0.5 % (0.0-0.4); Lymphocytes Absolute Auto 1.4 X10*3/uL (1.2-4.9); Mean Corpuscular HGB Conc 32.7 g/dl (31.0-36.0); Mean Platelet Volume 9.9 fL (9.4-12.4); Monocytes Absolute Auto 0.5 X10*3/uL (0.1-1.2); Monocytes Percent Auto 8.2 % (2-11); Neutrophils Absolute Auto 4.1 x10*3/uL (2.0-8.3); Neutrophils Percent Auto 65.5 % (45-73); Platelet Count 161 X10*3/uL (160-400); Red Blood Count 3.19 X10*6/uL (4.60-5.80)
[2024-04-19 14:24] LABS: White Blood Count 6.2 X10*3/uL (4.8-10.8)
[2024-04-19 14:30] LABS: Alanine Aminotransferase 23 U/L (0-40); Albumin Level 3.5 g/dL (3.5-5.0); Alkaline Phosphatase 247 U/L (39-117); Anion Gap 17 (12-20); Aspartate Amino Transferase 24 U/L (5-37); Bilirubin Total 0.9 mg/dL (0.0-1.0); Blood Urea Nitrogen 57 mg/dL (9-16); Calcium 8.8 mg/dL (8.4-10.2); Carbon Dioxide 22 mmol/L (22-29); Chloride 107 mmol/L (96-108); Creatinine Clr Calc Pharmacy 22.3; Estimated Glomerular Filt Rate 16; Glucose Random 105 mg/dL (60-115); Potassium 4.1 mmol/L (3.3-5.1); Sodium 142 mmol/L (135-145); Total Protein 6.8 g/dL (6.5-8.0)
--- NOTE | 2024-04-19 14:32 | PC.NURSE ---
late charting due to patient care, patient arrives via EMS after staff found him to be tachycardic, per EMS staff stated he has been tachycardic for the last few days, however they hoped he would break out of it, when he did not they called 911. patient recently discharged from [facility] for OR, pacemaker/ICD placed, patient with some bruising and steri strips still in place. patient offering no complaints at this time, denies chest pain or shortness of breath, denies palpitations. patient with 20g IV placed in RAC, MD placed 18g US IV in left forearm, cardiology at bedside to assess patient, per MD attempted to give patient 5mg of IV metoprolol, no effect. a second dose of 5mg of metoprolol given, patient remains tachycardic in the 140s-150s. Cardiology at bedside, to attempt 6mg of adenosine, 6mg pushed rapidly followed with flush by this RN. patient briefly broke rhythm to show atrial flutter, patient then returned back to a rate of 140s. per cardiology patient is not to receive another dose of adenosine, patient administered digoxin per [facility] [employer] [facility] order. patient remains on school bus monitor. BP stable at this time, patient presenting somewhat confused alert to self, when asking patient what year it is patient thinks it is 1993. patient stating to this RN i dont even know what kind of building i am in, this is some kind of bungalow or something. MD aware of patient confusion. blood work obtained and sent to lab, patient resting comfortbly on stretcher, remains on school bus monitor, awaiting plan
--- NOTE | 2024-04-19 14:42 | PC.NURSE ---
lab called with critical troponin of 121.1. made aware
[2024-04-19 14:43] LABS: Troponin-I High Sensitivity 121.1 ng/L (<3.5-35.0)
[2024-04-19] MEDS: Metoprolol Tartrate 25 MG TABLET PO (17:12)
--- NOTE | 2024-04-19 17:23 | P.HPHOSP_ITS ---
<Statement entered by Rufina Murguia MD - 04/20/24 10:11> the patient was seen and evaluated with CARLOTA Vázquez. I agree with her note, assessment and plan with the following. A 73 years old male with PMH of CVA w left hemiparesis, HTN, demenua who presented with confusion and palpitations. he has recent cardiac arrest x3 with ventricular fibrillation and cardiogenic shock and ischemic cardiomyopathy with EF 30-35% on AICD. presented with atrial flutter with RVR. HE will be admitted for further management of atrial flutter with RVR, encephalopathy, and BARB #New onset atrial flutter with RVR Loaded with Digoxin, MEtoprolol IV therapeutic Lovenox Digoxin 0.125mcg in 2 days cardiology consult #Acute kidney injury on CKD4 IVF @80ml/hr avoid nephrotoxins follow BMP Rest of evaluations by PA note. 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 The patient was recently admitted to [facility] from 03/25-04/09 following cardiac arrest x3 with ventricular fibrillation and cardiogenic shock and ischemic cardiomyopathy with EF 30-35% with akinesis of anterior wall and apex. 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 He had been referred to bypass surgery but was not felt to be a good candidate. Subsequently he developed a complete heart block and had a dual chamber ICD placed prior to discharging to short-term rehab. He was discharged on aspirin and Plavix as well as carvedilol 6.25 mg twice daily and isosorbide hydralazine combination. This morning at rehab, was noted to be confused from baseline though there is some question of post cardiac arrest encephalopathy due to anoxic brain injury. The patient is a limited historian is not sure why he is in the hospital though his is at bedside who does assist with history. While admitted was intubated and developed and was treated for aspriation pneumonia, completed course of zosyn. The patient denies any chest pain, sob, abd pain. No reported melena, hematochezia, diarrhea, fevers, chills. Does have residual cough. Since arrival has been tachycardic to 150. Initially thought to have SVt and was treated with adenosine. However, when rate slowed slightly, rhythm confirmed to be atrial flutter with rvr, still maintaining 144-155 and also tachypneic. No hypotension. No leukocytosis. H/H 9.9/30.3% which is improved from h/h on [facility] discharge. Creat 3.75, was last 2.7 on [facility] [place] [facility] BUN 57. Lytes wnl. Initial trop 121, repeat pending. CXR negative for acute cardiopulmonary abnormality. He give IV lopressor 5mg x2 with drop in bp around 100/60. Seen by cardiology recommending dig load 0.5mg and started on PO metoprolol 25mg recommend TID. HR remains elevated 145 on exam. BP stable. He will be admitted for further management of aflutter wtih rvr, encephalopathy, and barb. 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 COPD (chronic obstructive pulmonary disease) Surgical History S/P ICD (internal cardiac defibrillator) procedure Social History Patient Tobacco Use Status: Tobacco use Unknown Smoked in Last 30 Days: No Use of substances other than those prescribed or required for medical reasons: No Advance Directives: No Advance Directives Information Provided: Yes Do you have a plan to hurt others: No Plan Nutrition Risks: No Nutritional Risk Meds Allergies Allergy/AdvReac Type Severity Reaction Status Date / Time No Known Allergies Allergy Verified 04/19/24 13:45 [No Known Allergies*] Active Medications: Current Medications Acetaminophen (Acetaminophen 325 Mg Tablet) 650 mg PO Q6H PRN PRN Reason: Pain, Mild (Pain Scale 1-3), fever or headache Calcium Carbonate (Calcium Carbonate 750 Mg Tab.Chew) 750 mg PO Q4H PRN PRN Reason: Heartburn Enoxaparin Sodium (Enoxaparin Sodium 100 Mg/Ml Syringe) 100 mg SUBCUT Q12H AVERY Magnesium Hydroxide (Milk Of Magnesia 30 Ml Oral.Susp) 30 ml PO DAILY PRN PRN Reason: Constipation Melatonin (Melatonin 3 Mg Tablet) 6 mg PO BEDTIME PRN PRN Reason: Insomnia Sodium Chloride (0.9 % Sodium Chloride Flush 3 Ml Syringe) 3 ml IVFLUSH QSHIFT AVERY Home Medications ?Medication ?Instructions ?Recorded ?Confirmed ?Last Taken ?Type acetaminophen 325 mg tablet 650 mg PO NEEDED PRN Elevated 04/19/24 04/19/24 Unknown History Temps aspirin 81 mg chewable tablet 81 mg PO DAILY 04/19/24 04/19/24 Unknown History atorvastatin 40 mg tablet 40 mg PO BEDTIME 04/19/24 04/19/24 Unknown History bisacodyl 10 mg rectal suppository 10 mg DC DAILY PRN If MoM not 04/19/24 04/19/24 Unknown History effective clopidogrel 75 mg tablet 75 mg PO DAILY@0900 04/19/24 04/19/24 Unknown History famotidine 20 mg tablet 20 mg PO DAILY 04/19/24 04/19/24 Unknown History furosemide 40 mg tablet 40 mg PO DAILY@0900 04/19/24 04/19/24 Unknown History hydralazine 25 mg tablet 25 mg PO BID Hypertension 04/19/24 04/19/24 Unknown History magnesium hydroxide 400 mg/5 mL 30 ml PO DAILY PRN Constipation 04/19/24 04/19/24 Unknown History oral suspension (Milk of Magnesia) melatonin 3 mg tablet 3 mg PO BEDTIME Insomnia 04/19/24 04/19/24 Unknown History Physical Exam 2 Vital Signs and Narrative: Vital Signs: Last Vital Signs Temp 97.5 F 04/19/24 14:42 Pulse 144 H 04/19/24 17:12 Resp 21 H 04/19/24 16:14 BP 115/74 04/19/24 17:12 Pulse Ox 96 04/19/24 16:14 O2 Del Method Room Air 04/19/24 16:14 BMI result Body Mass Index 37.8 Constitutional - Awake and Alert, No apparent distress Eyes - PERRLA, EOMI Cardiovascular - S1S2, RRR, No edema Respiratory - Normal lung expansion, Normal respiratory effort, No respiratory distress, CTA bilaterally Gastrointestinal - NT / ND; +BS; No rebound or guarding Extremities - no calf tenderness bilaterally, no swelling Skin - Warm/Dry Neurological - Alert & oriented to self only, confused as to why he is in the hospital Psychological - Appropriate affect Results Labs 04/19/24 14:01 04/19/24 14:01 Labs: Laboratory Results - last 24 hr 04/19/24 14:01 MCV 95.0 MCH 31.0 MCHC 32.7 RDW 15.0 Plt Count 161 MPV 9.9 Immature Gran % (Auto) 0.5 H Neut % (Auto) 65.5 Lymph % (Auto) 22.0 [place] % (Auto) 8.2 Eos % (Auto) 2.4 Baso % (Auto) 1.4 Lymph # (Auto) 1.4 [place] # (Auto) 0.5 Eos # (Auto) 0.2 Baso # (Auto) 0.1 Abs Immat Gran (auto) 0.03 Absolute Neuts (auto) 4.1 Absolute Nucleated RBC 0.000 Nucleated RBC % (auto) 0.0 PT 13.2 INR 1.1 Anion Gap 17 Estim Creat Clear Calc 22.3 Estimated GFR 16 Random Glucose 105 Calcium 8.8 Total Bilirubin 0.9 AST 24 ALT 23 Alkaline Phosphatase 247 H Troponin I High Sens 121.1 H* Total Protein 6.8 Albumin 3.5 Imaging Radiologist's Impressions: Impressions Chest X-Ray 04/19/24 14:52 IMPRESSION: No acute intrathoracic disease. Interval placement of pacemaker. 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 The patient was recently admitted to [facility] from 03/25-04/09 following cardiac arrest x3 with ventricular fibrillation and cardiogenic shock and ischemic cardiomyopathy with EF 30-35% with akinesis of anterior wall and apex. 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 He had been referred to bypass surgery but was not felt to be a good candidate. Subsequently he developed a complete heart block and had a dual chamber ICD placed prior to discharging to short-term rehab. He was discharged on aspirin and Plavix as well as carvedilol 6.25 mg twice daily and isosorbide hydralazine combination. In the ED thought to be in SVt given adenosine with improvement enough in rate to confirm atrial flutter with RVR. HE will be admitted for further management of atrial flutter with RVR, encephalopathy, and BARB #New onset atrial flutter with RVR -initiate therapeutic Lovenox 120 mg b.i.d. for anticoagulation -loaded with dig in ed. hold on further dig load. Consider 0.125mcg in 2 days -metoprolol 25 mg t.i.d. -per cardiology, avoid diltiazem and verapamil -cardiology consult -cardiac diet -monitor on telemetry #Acute kidney injury -likely due to hypoperfusion -creat 3.75, was last 2.7 04/09 at [facility] -rate control, bp management -gentle IVF @80ml/hr -avoid nephrotoxins -follow renal function/lytes #Acute vs metabolic encephalopathy -?r/t anoxic brain injury following cardiac arrest x3 03/25/24 vs acute r/t hypoperfusion -per patient has been confused since discharge -monitor mentation #Elevated troponins -likely rate related -initial trop 121, repeat pending. no chest pain #HTN -bp's soft -continue metoprolol 25mg TID per cardiology. Hold isosorbide and hydralazine #HFrEF -last echo [place] [facility] [place] shows EF 30-35% -no acute exacerbation, continue p.o. Lasix # ischemic cardiomyopathy -continue plavis, hold asa. Continue statin -lovenox as above DVT prophylaxis-therapeutic Lovenox DNR/DNI though does have AICD in place Patient requires inpatient stay at least 2 midnights for management of atrial flutter with RVR requiring IV rate control/digoxin loading with close cardiac monitoring and monitoring for hemodynamic stability. He will also require close monitoring of renal function due to BARB secondary to hypoperfusion Quality Stroke Does the patient have a stroke diagnosis?: No VTE Prior VTE?: No VTE Risk Level:: Medical - moderate - high VTE Device Contraindication: Treatment Not Indicated VTE Drug Contraindication: N/A - Med Ordered
--- NOTE | 2024-04-19 17:50 | PHA.MEDREC ---
Pharmacy Consult ? Medication Reconciliation Pharmacy has completed the medication reconciliation. Confirmed medications with list provided by Radha Clements.
[2024-04-19] MEDS: Enoxaparin Sodium 120 MG/0.8 ML SYRINGE SUBCUT (17:56)
--- NOTE | 2024-04-19 19:05 | MHC.EDTECH ---
THIS TECH TOOK OVER CARE PCT AT 1900 Call light within reach Plan of care ongoing
[2024-04-19] MEDS: 0.9 % Sodium Chloride 1,000 ML 80 ML IVCONT (20:31)
[2024-04-19] MEDS: Melatonin 3 MG TABLET PO (21:47)
[2024-04-19] MEDS: Atorvastatin Calcium 40 MG TABLET PO (21:47)
[2024-04-20] VITALS (9 sets, daily range): BP systolic 109–162; BP diastolic 58–81; PULSE 75–144; RESP 18–22; TEMP 36.1–36.6; O2SAT 95–98; BMI 36.4
--- NOTE | 2024-04-20 | ECG_ITS ---
Test Reason : A FLUTTER Blood Pressure : / mmHG Vent. Rate : 080 BPM Atrial Rate : 080 BPM P-R Int : 150 ms QRS Dur : 126 ms QT Int : 396 ms P-R-T Axes : 041 263 045 degrees QTc Int : 456 ms Atrial-sensed ventricular-paced rhythm Abnormal ECG When compared with ECG of 19-APR-2024 13:25, Paced rhythm has replaced atrial flutter Referred By: Marvel Devlin Electronically Signed By:Marvel Devlin
[2024-04-20] MEDS: Metoprolol Tartrate 25 MG TABLET PO ×4 (00:10→21:30)
[2024-04-20] MEDS: Enoxaparin Sodium 120 MG/0.8 ML SYRINGE SUBCUT (06:08)
[2024-04-20] MEDS: Furosemide 40 MG TABLET PO (08:07)
[2024-04-20] MEDS: Clopidogrel Bisulfate 75 MG TABLET PO (08:07)
[2024-04-20] MEDS: Famotidine 20 MG TABLET PO (08:07)
[2024-04-20] MEDS: 0.9 % Sodium Chloride Flush 3 ML SYRINGE IVFLUSH ×2 (08:08→15:03)
--- NOTE | 2024-04-20 09:45 | P.PNIM_ITS ---
Subjective Subjective Date of Service: 04/20/24 Interval History: seen and evaluated this morning heart rate better controlled , converted to sinus denies any chest pain or SOB no other overnight events Review of Systems Review of Systems: Yes all other systems are reviewed and are negative Physical Exam 2 Vital Signs: Vital Signs: Last Vital Signs Temp 97.4 F 04/20/24 07:56 Pulse 89 04/20/24 07:56 Resp 22 H 04/20/24 07:56 BP 136/65 04/20/24 07:56 Pulse Ox 95 04/20/24 07:56 O2 Del Method Room Air 04/20/24 07:56 BMI result Body Mass Index 36.4 Const: Other: Constitutional : Awake, interactive, not in distress Neck : Normal inspection, Supple Cardiovascular : regular , no JVP, no lower extremity edema Respiratory : good bilateral air entry, no crackles, wheezes or rhonchi Gastrointestinal: soft, lax, Normal bowel sounds, Non tender Skin : Warm, Dry Neurological : Alert & oriented to self, No focal deficit Objective Data Active Medications Acetaminophen (Acetaminophen 325 Mg Tablet) 650 mg PO Q6H PRN PRN Reason: Pain, Mild (Pain Scale 1-3), fever or headache Atorvastatin Calcium (Atorvastatin Calcium 40 Mg Tablet) 40 mg PO BEDTIME [facility] Last Admin: 04/19/24 21:47 Dose: 40 mg Documented By: RUBEN Bisacodyl (Bisacodyl 10 Mg Supp.Rect) 10 mg [place] DAILY PRN PRN Reason: If MoM not effective Calcium Carbonate (Calcium Carbonate 750 Mg Tab.Chew) 750 mg PO Q4H PRN PRN Reason: Heartburn Clopidogrel Bisulfate (Clopidogrel Bisulfate 75 Mg Tablet) 75 mg PO DAILY@0900 [facility] Last Admin: 04/20/24 08:07 Dose: 75 mg Documented By: MICHAEL Digoxin (Digoxin 0.125 Mg Tablet) 0.125 mg PO Q2D [facility] Enoxaparin Sodium (Enoxaparin Sodium 120 Mg/0.8 Ml Syringe) 120 mg SUBCUT Q12H [facility] Last Admin: 04/20/24 06:08 Dose: 120 mg Documented By: LAFLAMDarnell Famotidine (Famotidine 20 Mg Tablet) 20 mg PO DAILY [facility] Last Admin: 04/20/24 08:07 Dose: 20 mg Documented By: MICHAEL Furosemide (Furosemide 40 Mg Tablet) 40 mg PO DAILY@0900 [facility]; Protocol Last Admin: 04/20/24 08:07 Dose: 40 mg Documented By: MICHAEL Magnesium Hydroxide (Milk Of Magnesia 30 Ml Oral.Susp) 30 ml PO DAILY PRN PRN Reason: Constipation Magnesium Hydroxide (Milk Of Magnesia 30 Ml Oral.Susp) 30 ml PO DAILY PRN PRN Reason: Constipation Melatonin (Melatonin 3 Mg Tablet) 6 mg PO BEDTIME PRN PRN Reason: Insomnia Melatonin (Melatonin 3 Mg Tablet) 3 mg PO BEDTIME [facility] Last Admin: 04/19/24 21:47 Dose: 3 mg Documented By: RUBEN Metoprolol Tartrate (Metoprolol Tartrate 25 Mg Tablet) 25 mg PO TID [facility]; Protocol Last Admin: 04/20/24 08:08 Dose: 25 mg Documented By: MICHAEL Sodium Chloride (0.9 % Sodium Chloride Flush 3 Ml Syringe) 3 ml IVFLUSH QSHIFT [facility] Last Admin: 04/20/24 08:08 Dose: 3 ml Documented By: MICHAEL Labs 04/19/24 14:01 04/19/24 14:01 Labs: Laboratory Results - last 24 hr 04/19/24 14:01 MCV 95.0 MCH 31.0 MCHC 32.7 RDW 15.0 Plt Count 161 MPV 9.9 Immature Gran % (Auto) 0.5 H Neut % (Auto) 65.5 Lymph % (Auto) 22.0 [place] % (Auto) 8.2 Eos % (Auto) 2.4 Baso % (Auto) 1.4 Lymph # (Auto) 1.4 [place] # (Auto) 0.5 Eos # (Auto) 0.2 Baso # (Auto) 0.1 Abs Immat Gran (auto) 0.03 Absolute Neuts (auto) 4.1 Absolute Nucleated RBC 0.000 Nucleated RBC % (auto) 0.0 PT 13.2 INR 1.1 Anion Gap 17 Estim Creat Clear Calc 22.3 Estimated GFR 16 Random Glucose 105 Calcium 8.8 Total Bilirubin 0.9 AST 24 ALT 23 Alkaline Phosphatase 247 H Troponin I High Sens 121.1 H* Total Protein 6.8 Albumin 3.5 Assessment and Plan (1) Acute renal failure: Status: Acute (2) Ischemic cardiomyopathy: Status: Acute (3) Atrial flutter: Status: Acute Plan A 73 years old male with PMH of CVA w left hemiparesis, HTN, demenua who presented with confusion and palpitations. he has recent cardiac arrest x3 with ventricular fibrillation and cardiogenic shock and ischemic cardiomyopathy with EF 30-35% on AICD. presented with atrial flutter with RVR. HE will be admitted for further management of atrial flutter with RVR, BARB on CKD4 and confusion #New onset atrial flutter with RVR coverted to sinus change Lovenox to Eliquis metoprolol 25 mg t.i.d. Cardiology rec Amiodaron 400 mg daily for 2 weeks then 200 mg daily monitor on telemetry #Acute kidney injury on CKD4 likely due to hypoperfusion creat 3.75, was last 2.7 04/09 at [facility] IVF avoid nephrotoxins follow BMP # metabolic encephalopathy 2/2 hx anoxic brain injury following cardiac arrest x3 03/25/24 per patient has been confused since discharge monitor mentation #Elevated troponins likely rate related trended flat. no chest pain #HTN continue metoprolol 25mg TID per cardiology and convert to small long acting dose Hold isosorbide and hydralazine #HFrEF last echo at [facility] 03/2024 shows EF 30-35% no acute exacerbation, continue p.o. Lasix # ischemic cardiomyopathy continue ELISABETH johnson asa. Continue statin DVT prophylaxis Eliquis DNR/DNI have AICD in place Patient requires inpatient stay overnight for management of atrial flutter with RVR with close cardiac monitoring. He will also require close monitoring of renal function due to BARB secondary to hypoperfusion Quality Stroke Does the patient have a stroke diagnosis?: No VTE Prior VTE?: No VTE Risk Level:: Medical - moderate - high VTE Device Contraindication: Treatment Not Indicated VTE Drug Contraindication: N/A - Med Ordered
--- NOTE | 2024-04-20 10:12 | PM.PNCARD ---
Subjective Subjective Date of Service: 04/20/24 Interval history: Seen and examined at bedside. He reverted to sinus overnight. Met at bedside. Mental status fluctuates but he has encephalopathy since the cardiac arrest. Physical Exam Vital Signs: Last Vital Signs Temp 97.4 F 04/20/24 07:56 Pulse 89 04/20/24 07:56 Resp 22 H 04/20/24 07:56 BP 136/65 04/20/24 07:56 Pulse Ox 95 04/20/24 07:56 O2 Del Method Room Air 04/20/24 07:56 BMI result Body Mass Index 36.4 GENERAL APPEARANCE: Obese, in no distress. NECK: no carotid bruit, no obvious jugular venous distention. SKIN: no suspicious lesions, warm and dry. HEART: no murmurs, regular rate and rhythm. LUNGS: clear to auscultation anteriorly. ABDOMEN: soft, nontender. EXTREMITIES: no edema. PERIPHERAL PULSES: equal. NEUROLOGIC: No gross deficits, confused. Objective Labs and Meds 04/20/24 11:36 04/20/24 11:36 Lab results: Laboratory Results - last 24 hr 04/19/24 14:01 WBC 6.2 RBC 3.19 L D Hgb 9.9 L D Hct 30.3 L D MCV 95.0 MCH 31.0 MCHC 32.7 RDW 15.0 Plt Count 161 MPV 9.9 Immature Gran % (Auto) 0.5 H Neut % (Auto) 65.5 Lymph % (Auto) 22.0 [place] % (Auto) 8.2 Eos % (Auto) 2.4 Baso % (Auto) 1.4 Lymph # (Auto) 1.4 [place] # (Auto) 0.5 Eos # (Auto) 0.2 Baso # (Auto) 0.1 Abs Immat Gran (auto) 0.03 Absolute Neuts (auto) 4.1 Absolute Nucleated RBC 0.000 Nucleated RBC % (auto) 0.0 PT 13.2 INR 1.1 Sodium 142 Potassium 4.1 Chloride 107 Carbon Dioxide 22 Anion Gap 17 BUN 57 H Creatinine 3.75 H Estim Creat Clear Calc 22.3 Estimated GFR 16 Random Glucose 105 Calcium 8.8 Total Bilirubin 0.9 AST 24 ALT 23 Alkaline Phosphatase 247 H Troponin I High Sens 121.1 H* Total Protein 6.8 Albumin 3.5 Imaging Radiologist's impression: Impressions Chest X-Ray 04/19/24 14:52 IMPRESSION: No acute intrathoracic disease. Interval placement of pacemaker. Progress Note: A&P Assessment and plan (1) Atrial flutter: Status: Acute (2) Ischemic cardiomyopathy: Status: Acute (3) Acute renal failure: Status: Acute Plan 73-year-old gentleman with complex cardiovascular issues with recently left [facility] after cardiac arrest with ventricular fibrillation and was diagnosed with multivessel disease. He was in shock and was supported with Impella CP. He was deemed not a good surgical candidate by surgery and eventually developed complete heart block requiring dual-chamber ICD placement (EF was 30-35%). He is presenting to [facility] with confusion and tachycardia and was noticed to be in atrial flutter. He was given digoxin and beta-wilbert and it appears he broke out of flutter overnight. I think he had some underperfusion while he was in an arrhythmia and creatinine has worsened. His baseline creatinine was 2.7 when he left [facility]. Not in heart failure clinically. Stop digoxin. Add amiodarone 400 mg twice a day for 10 days. Continue Toprol-XL 25 mg daily. Stop the aspirin and start him on Eliquis based on creatinine clearance. Plavix can be continued as before. He has appointment to see [facility] cardiology. I have asked the to keep the appointment with [facility]. Time Spent With Patient Time: Total time managing care of this patient today ____ minutes. Progress Note: Quality Stroke Does the patient have a stroke diagnosis?: No Procedures Date of Service Date of Service: 04/20/24
[2024-04-20] MEDS: Amiodarone HCL 200 MG TABLET 400 MG PO (10:56)
[2024-04-20 11:40] LABS: MANUAL DIFF FLAG NO
[2024-04-20 11:56] LABS: Basophils Absolute Auto 0.1 X10*3/uL (0.0-0.2); Eosinophils Absolute Auto 0.1 X10*3/uL (0.0-0.4); Eosinophils Percent Auto 2.3 % (0-4); Hematocrit 29.2 % (42.0-52.0); Hemoglobin 9.1 g/dl (14.0-18.0); Imm Gran Abs Auto 0.01 X10*3/uL (0.00-0.03); Imm Gran Pct Auto 0.3 % (0.0-0.4); Lymphocytes Percent Auto 25.6 % (20-40); Mean Corpuscular HGB Conc 31.2 g/dl (31.0-36.0); Mean Corpuscular Hemoglobin 31.2 pg (27.0-33.0); Mean Platelet Volume 10.1 fL (9.4-12.4); Monocytes Absolute Auto 0.4 X10*3/uL (0.1-1.2); Monocytes Percent Auto 8.9 % (2-11); Neutrophils Absolute Auto 2.4 x10*3/uL (2.0-8.3); Neutrophils Percent Auto 60.9 % (45-73); Platelet Count 129 X10*3/uL (160-400); Red Blood Count 2.92 X10*6/uL (4.60-5.80); Red Cell Distribution Width 15.1 % (11.0-16.0)
[2024-04-20 11:57] LABS: Anion Gap 15 (12-20); Blood Urea Nitrogen 51 mg/dL (9-16); Calcium 8.4 mg/dL (8.4-10.2); Carbon Dioxide 16 mmol/L (22-29); Chloride 112 mmol/L (96-108); Creatinine Clr Calc Pharmacy 24.9; Estimated Glomerular Filt Rate 19; Glucose Random 122 mg/dL (60-115); Potassium 4.4 mmol/L (3.3-5.1); Sodium 139 mmol/L (135-145)
--- NOTE | 2024-04-20 13:35 | MHC.CM.PN ---
IMM 04/20/24 DELIVERED TO PT'S DURAN AT # ON FILE, DURAN REPORTS PT WAS AT [facility] FOR STR AND FEELS HE WILL NEED CONTINUED REHAB ON DC, PT WAS FULLY INDEP PRIOR TO CARDIAC ARRESTS PRIOR TO TRANSFERRING FROM [facility] TO [facility], PER P.T. EVAL PT RECOMMENDING STR, REFERRAL PLACED TO [facility]. PER PT'S PCP IS INES BATES, /DURAN IS PT'S HCP, COPY REQUESTED FROM FACILITY ONLY [facility] WAS RECEIVED FROM SNF.
[2024-04-20] MEDS: Acetaminophen 325 MG TABLET 650 MG PO (14:59)
[2024-04-20] MEDS: Sodium Bicarbonate 650 MG TABLET PO ×2 (15:03→21:30)
[2024-04-20] MEDS: Atorvastatin Calcium 40 MG TABLET PO (21:30)
[2024-04-20] MEDS: Melatonin 3 MG TABLET PO (21:30)
[2024-04-21] VITALS (7 sets, daily range): BP systolic 121–148; BP diastolic 59–70; PULSE 78–93; RESP 16–20; TEMP 36–36.3; O2SAT 95–98
[2024-04-21] MEDS: Acetaminophen 325 MG TABLET 650 MG PO ×3 (03:51→21:36)
[2024-04-21 06:58] LABS: Hematocrit 27.9 % (42.0-52.0); Hemoglobin 9.3 g/dl (14.0-18.0); Mean Corpuscular HGB Conc 33.3 g/dl (31.0-36.0); Mean Corpuscular Hemoglobin 31.6 pg (27.0-33.0); Mean Corpuscular Volume 94.9 fL (80.0-98.0); Mean Platelet Volume 10.5 fL (9.4-12.4); Platelet Count 116 X10*3/uL (160-400); Red Blood Count 2.94 X10*6/uL (4.60-5.80); Red Cell Distribution Width 14.9 % (11.0-16.0); White Blood Count 4.1 X10*3/uL (4.8-10.8)
[2024-04-21 07:11] LABS: Anion Gap 16 (12-20); Blood Urea Nitrogen 51 mg/dL (9-16); Calcium 8.6 mg/dL (8.4-10.2); Carbon Dioxide 17 mmol/L (22-29); Chloride 112 mmol/L (96-108); Estimated Glomerular Filt Rate 19; Glucose Random 93 mg/dL (60-115); Sodium 141 mmol/L (135-145)
[2024-04-21] MEDS: Apixaban 5 MG TABLET PO ×2 (08:22→19:44)
[2024-04-21] MEDS: Furosemide 40 MG TABLET PO (08:22)
[2024-04-21] MEDS: Famotidine 20 MG TABLET PO (08:22)
[2024-04-21] MEDS: 0.9 % Sodium Chloride Flush 3 ML SYRINGE IVFLUSH ×3 (08:22→19:46)
[2024-04-21] MEDS: Metoprolol Succinate ER 25 MG TAB.ER.24H PO (08:22)
[2024-04-21] MEDS: Clopidogrel Bisulfate 75 MG TABLET PO (08:22)
[2024-04-21] MEDS: Amiodarone HCL 200 MG TABLET 400 MG PO ×2 (08:22→19:45)
[2024-04-21] MEDS: Sodium Bicarbonate 650 MG TABLET PO ×3 (08:22→19:45)
--- NOTE | 2024-04-21 09:18 | P.PNIM_ITS ---
Subjective Subjective Date of Service: 04/21/24 Interval History: seen and evaluated this morning heart rate controlled in sinus Bicarb low no other overnight events Review of Systems Review of Systems: Yes all other systems are reviewed and are negative Physical Exam 2 Vital Signs: Vital Signs: Last Vital Signs Temp 97.3 F 04/21/24 07:16 Pulse 86 04/21/24 07:16 Resp 18 04/21/24 07:16 BP 148/68 H 04/21/24 07:16 Pulse Ox 95 04/21/24 07:16 O2 Del Method Room Air 04/21/24 07:16 BMI result Body Mass Index 36.4 Const: Other: Constitutional : Awake, interactive, not in distress Neck : Normal inspection, Supple Cardiovascular : regular , no JVP, no lower extremity edema Respiratory : good bilateral air entry, no crackles, wheezes or rhonchi Gastrointestinal: soft, lax, Normal bowel sounds, Non tender Skin : Warm, Dry Neurological : Alert & oriented to self, No focal deficit Objective Data Active Medications Acetaminophen (Acetaminophen 325 Mg Tablet) 650 mg PO Q6H PRN PRN Reason: Pain, Mild (Pain Scale 1-3), fever or headache Last Admin: 04/21/24 03:51 Dose: 650 mg Documented By: LAURA Amiodarone HCl (Amiodarone Hcl 200 Mg Tablet) 400 mg PO BID [facility] Last Admin: 04/21/24 08:22 Dose: 400 mg Documented By: FAYE Apixaban (Apixaban 5 Mg Tablet) 5 mg PO BID [facility] Last Admin: 04/21/24 08:22 Dose: 5 mg Documented By: FAYE Atorvastatin Calcium (Atorvastatin Calcium 40 Mg Tablet) 40 mg PO BEDTIME [facility] Last Admin: 04/20/24 21:30 Dose: 40 mg Documented By: LESSARJuancarlos Bisacodyl (Bisacodyl 10 Mg Supp.Rect) 10 mg [place] DAILY PRN PRN Reason: If MoM not effective Calcium Carbonate (Calcium Carbonate 750 Mg Tab.Chew) 750 mg PO Q4H PRN PRN Reason: Heartburn Clopidogrel Bisulfate (Clopidogrel Bisulfate 75 Mg Tablet) 75 mg PO DAILY@0900 [facility] Last Admin: 04/21/24 08:22 Dose: 75 mg Documented By: FAYE Famotidine (Famotidine 20 Mg Tablet) 20 mg PO DAILY [facility] Last Admin: 04/21/24 08:22 Dose: 20 mg Documented By: FAYE Furosemide (Furosemide 40 Mg Tablet) 40 mg PO DAILY@0900 [facility]; Protocol Last Admin: 04/21/24 08:22 Dose: 40 mg Documented By: FAYE Magnesium Hydroxide (Milk Of Magnesia 30 Ml Oral.Susp) 30 ml PO DAILY PRN PRN Reason: Constipation Magnesium Hydroxide (Milk Of Magnesia 30 Ml Oral.Susp) 30 ml PO DAILY PRN PRN Reason: Constipation Melatonin (Melatonin 3 Mg Tablet) 6 mg PO BEDTIME PRN PRN Reason: Insomnia Melatonin (Melatonin 3 Mg Tablet) 3 mg PO BEDTIME [facility] Last Admin: 04/20/24 21:30 Dose: 3 mg Documented By: SHIRA Metoprolol Succinate (Metoprolol Succinate Er 25 Mg Tab.Er.24h) 25 mg PO DAILY [facility]; Protocol Last Admin: 04/21/24 08:22 Dose: 25 mg Documented By: FAYE Sodium Bicarbonate (Sodium Bicarbonate 650 Mg Tablet) 650 mg PO TID [facility] Last Admin: 04/21/24 08:22 Dose: 650 mg Documented By: FAYE Sodium Chloride (0.9 % Sodium Chloride Flush 3 Ml Syringe) 3 ml IVFLUSH QSHIFT [facility] Last Admin: 04/21/24 08:22 Dose: 3 ml Documented By: FAYE Labs 04/21/24 06:20 04/21/24 06:20 Labs: Laboratory Results - last 24 hr 04/20/24 04/21/24 11:36 06:20 MCV 100.0 H D 94.9 D MCH 31.2 31.6 MCHC 31.2 33.3 RDW 15.1 14.9 Plt Count 129 L 116 L MPV 10.1 10.5 Immature Gran % (Auto) 0.3 Neut % (Auto) 60.9 Lymph % (Auto) 25.6 [place] % (Auto) 8.9 Eos % (Auto) 2.3 Baso % (Auto) 2.0 Lymph # (Auto) 1.0 L [place] # (Auto) 0.4 Eos # (Auto) 0.1 Baso # (Auto) 0.1 Abs Immat Gran (auto) 0.01 Absolute Neuts (auto) 2.4 Absolute Nucleated RBC 0.000 0.000 Nucleated RBC % (auto) 0.0 0.0 Anion Gap 15 16 Estim Creat Clear Calc 24.9 25.0 Estimated GFR 19 19 Random Glucose 122 H 93 Calcium 8.4 8.6 Assessment and Plan (1) Acute renal failure: Status: Acute (2) Ischemic cardiomyopathy: Status: Acute (3) Atrial flutter: Status: Acute (4) Metabolic acidosis: Status: Acute Plan A 73 years old male with PMH of CVA w left hemiparesis, HTN, demenua who presented with confusion and palpitations. he has recent cardiac arrest x3 with ventricular fibrillation and cardiogenic shock and ischemic cardiomyopathy with EF 30-35% on AICD. presented with atrial flutter with RVR. HE will be admitted for further management of atrial flutter with RVR, BARB on CKD4 and confusion #New onset atrial flutter with RVR coverted to sinus change Lovenox to Eliquis Start metoprolol 25 mg XL Cardiology rec Amiodaron 400 mg bid for 10 days then 200 mg daily monitor on telemetry #Acute kidney injury on CKD4 complicated with acute metabolic acidosis likely due to hypoperfusion with Afib rvr Low Bicarb of 17 creat 3.3, was last 2.7 04/09 at [facility] DC IVF , avoid nephrotoxins Nephrology consulted, correct bicarb NaCo3 tID follow BMP and DC tomorrow if corrected # metabolic encephalopathy 2/2 hx anoxic brain injury following cardiac arrest x3 03/25/24 per patient has been confused since discharge monitor mentation, sames around his new baseline #Elevated troponins likely rate related trended flat. no chest pain #HTN continue metoprolol 25mg TID per cardiology and convert to small long acting dose Hold isosorbide and hydralazine #HFrEF last echo at [facility] 03/2024 shows EF 30-35% no acute exacerbation, continue p.o. Lasix # ischemic cardiomyopathy continue plavis, DC asa. Continue statin DVT prophylaxis Eliquis DNR/DNI have AICD in place Patient requires inpatient stay overnight for management of renal function due to BARB and metabolic acidosis Quality Stroke Does the patient have a stroke diagnosis?: No VTE Prior VTE?: No VTE Risk Level:: Medical - moderate - high VTE Device Contraindication: Treatment Not Indicated VTE Drug Contraindication: N/A - Med Ordered
--- NOTE | 2024-04-21 13:25 | MHC.CM.PN ---
EMR reviewed and per MD rounds, pt is not medically cleared for discharge due to management of BARB and metabolic acidosis. Anticipating pt will discharge tomorrow 04/22 to [facility]. Radha Clements has gone for insurance auth. Pts /HCP Isha updated and is aware.
--- NOTE | 2024-04-21 13:28 | P.CONNP_ITS ---
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 The patient was recently admitted to [facility] from 03/25-04/09 following cardiac arrest x3 with ventricular fibrillation and cardiogenic shock and ischemic cardiomyopathy with EF 30-35% with akinesis of anterior wall and apex. 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 He had been referred to bypass surgery but was not felt to be a good candidate. Subsequently he developed a complete heart block and had a dual chamber ICD placed prior to discharging to short-term rehab. He was discharged on aspirin and Plavix as well as carvedilol 6.25 mg twice daily and isosorbide hydralazine combination. This morning at rehab, was noted to be confused from baseline though there is some question of post cardiac arrest encephalopathy due to anoxic brain injury. While admitted was intubated and developed and was treated for aspriation pneumonia, completed course of zosyn. The patient denies any chest pain, sob, abd pain. No reported melena, hematochezia, diarrhea, fevers, chills. Does have residual cough. Since arrival has been tachycardic to 150. Initially thought to have SVt and was treated with adenosine. However, when rate slowed slightly, rhythm confirmed to be atrial flutter with rvr, still maintaining 144-155 and also tachypneic. No hypotension. No leukocytosis. H/H 9.9/30.3% which is improved from h/h on [facility] discharge. Creat 3.75, was last 2.7 on discharge from [facility]. BUN 57. Lytes wnl. Initial trop 121, repeat pending. CXR negative for acute cardiopulmonary abnormality. He give IV lopressor 5mg x2 with drop in bp around 100/60. Seen by cardiology recommending dig load 0.5mg and started on PO metoprolol 25mg recommend TID. He was be admitted for further management of aflutter wtih rvr, encephalopathy, and barb. Nephrology has been consulted to assist in his clinical care during his current hospital stay. Review of Systems Review of Systems Yes all other systems are reviewed and are negative PMFSH Past Medical History Medical History Coronary artery disease History of cardiac arrest Complete heart block Ventilator associated pneumonia STEMI (ST elevation myocardial infarction) Atrial flutter Ischemic cardiomyopathy Hypertension Hx of alf use of blood thinners COPD (chronic obstructive pulmonary disease) Surgical History Surgical History S/P ICD (internal cardiac defibrillator) procedure Social History Social History Patient Tobacco Use Status: Tobacco use Unknown Smoked in Last 30 Days: No Use of substances other than those prescribed or required for medical reasons: No Currently Displaying Signs/Symptoms of Drug Intoxication Withdrawal: No Have you been hit, kicked, punched, or otherwise hurt by someone within the past year? If so, by whom?: No Do you feel safe in your current relationship?: No Current Relationship Is there a partner from a previous relationship who is making you feel unsafe now?: No Are you made to feel afraid or neglected: No Advance Directives: No Advance Directives Information Provided: Yes Do you have a plan to hurt others: No Plan Recently lost weight without trying: No Eating poorly because of decreased appetite: No Nutrition Risks: No Nutritional Risk service: No Meds Allergies Allergy/AdvReac Type Severity Reaction Status Date / Time No Known Allergies Allergy Verified 04/19/24 13:45 [No Known Allergies*] Active Medications: Current Medications Acetaminophen (Acetaminophen 325 Mg Tablet) 650 mg PO Q6H PRN PRN Reason: Pain, Mild (Pain Scale 1-3), fever or headache Last Admin: 04/21/24 11:44 Dose: 650 mg Amiodarone HCl (Amiodarone Hcl 200 Mg Tablet) 400 mg PO BID [facility] Last Admin: 04/21/24 08:22 Dose: 400 mg Apixaban (Apixaban 5 Mg Tablet) 5 mg PO BID [facility] Last Admin: 04/21/24 08:22 Dose: 5 mg Atorvastatin Calcium (Atorvastatin Calcium 40 Mg Tablet) 40 mg PO BEDTIME [facility] Last Admin: 04/20/24 21:30 Dose: 40 mg Bisacodyl (Bisacodyl 10 Mg Supp.Rect) 10 mg [place] DAILY PRN PRN Reason: If MoM not effective Calcium Carbonate (Calcium Carbonate 750 Mg Tab.Chew) 750 mg PO Q4H PRN PRN Reason: Heartburn Clopidogrel Bisulfate (Clopidogrel Bisulfate 75 Mg Tablet) 75 mg PO DAILY@0900 [facility] Last Admin: 04/21/24 08:22 Dose: 75 mg Famotidine (Famotidine 20 Mg Tablet) 20 mg PO DAILY [facility] Last Admin: 04/21/24 08:22 Dose: 20 mg Furosemide (Furosemide 40 Mg Tablet) 40 mg PO DAILY@0900 [facility]; Protocol Last Admin: 04/21/24 08:22 Dose: 40 mg Magnesium Hydroxide (Milk Of Magnesia 30 Ml Oral.Susp) 30 ml PO DAILY PRN PRN Reason: Constipation Magnesium Hydroxide (Milk Of Magnesia 30 Ml Oral.Susp) 30 ml PO DAILY PRN PRN Reason: Constipation Melatonin (Melatonin 3 Mg Tablet) 6 mg PO BEDTIME PRN PRN Reason: Insomnia Melatonin (Melatonin 3 Mg Tablet) 3 mg PO BEDTIME [facility] Last Admin: 04/20/24 21:30 Dose: 3 mg Metoprolol Succinate (Metoprolol Succinate Er 25 Mg Tab.Er.24h) 25 mg PO DAILY [facility]; Protocol Last Admin: 04/21/24 08:22 Dose: 25 mg Sodium Bicarbonate (Sodium Bicarbonate 650 Mg Tablet) 650 mg PO TID [facility] Last Admin: 04/21/24 08:22 Dose: 650 mg Sodium Chloride (0.9 % Sodium Chloride Flush 3 Ml Syringe) [facility] Admin: 04/21/24 08:22 Dose: 3 ml Home Medications ?Medication ?Instructions ?Recorded ?Confirmed ?Last Taken ?Type acetaminophen 325 mg tablet 650 mg PO NEEDED PRN Elevated 04/19/24 04/19/24 Unknown History Temps aspirin 81 mg chewable tablet 81 mg PO DAILY 04/19/24 04/19/24 Unknown History atorvastatin 40 mg tablet 40 mg PO BEDTIME 04/19/24 04/19/24 Unknown History bisacodyl 10 mg rectal suppository 10 mg AL DAILY PRN If MoM not 04/19/24 04/19/24 Unknown History effective clopidogrel 75 mg tablet 75 mg PO DAILY@0900 04/19/24 04/19/24 Unknown History famotidine 20 mg tablet 20 mg PO DAILY 04/19/24 04/19/24 Unknown History furosemide 40 mg tablet 40 mg PO DAILY@0900 04/19/24 04/19/24 Unknown History hydralazine 25 mg tablet 25 mg PO BID Hypertension 04/19/24 04/19/24 Unknown History magnesium hydroxide 400 mg/5 mL 30 ml PO DAILY PRN Constipation 04/19/24 04/19/24 Unknown History oral suspension (Milk of Magnesia) melatonin 3 mg tablet 3 mg PO BEDTIME Insomnia 04/19/24 04/19/24 Unknown History Physical Exam Vital Signs: Last Vital Signs Temp 97.2 F 04/21/24 11:37 Pulse 83 04/21/24 11:37 Resp 20 04/21/24 11:37 BP 121/64 04/21/24 11:37 Pulse Ox 97 04/21/24 11:37 O2 Del Method Room Air 04/21/24 11:37 BMI result Body Mass Index 36.4 Const General: no acute distress Eyes EOM: EOMs intact bilaterally Neck Neck: Yes supple Resp Auscultation: diminished lung sounds Cardio Rate: regular rate GI Palpation (GI): Soft to palpation Neuro General: moves all extremities Results Lab Results 04/21/24 06:20 04/21/24 06:20 Lab results: Chemistry 04/19/24 04/20/24 04/21/24 14:01 11:36 06:20 Sodium 142 139 141 Potassium 4.1 4.4 4.0 Carbon Dioxide 22 16 L 17 L BUN 57 H 51 H 51 H Creatinine 3.75 H 3.30 H 3.29 H Calcium 8.8 8.4 8.6 Hematology 04/19/24 04/20/24 04/21/24 14:01 11:36 06:20 WBC 6.2 4.0 L 4.1 L Hgb 9.9 L D 9.1 L 9.3 L Plt Count 161 129 L 116 L Assessment and Plan (1) Acute renal failure: Qualifiers: Acute renal failure type: unspecified Qualified Code(s): N17.9 - Acute kidney failure, unspecified Status: Acute Plan 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
[2024-04-21] MEDS: Atorvastatin Calcium 40 MG TABLET PO (19:44)
[2024-04-21] MEDS: Melatonin 3 MG TABLET PO (19:45)
[2024-04-22 03:30] VITALS: BP 139/67; PULSE 82; RESP 16; TEMP 36.2; O2SAT 95
[2024-04-22 07:30] VITALS: BP 147/65; PULSE 76; RESP 18; TEMP 36.3; O2SAT 95
[2024-04-22 07:42] LABS: Hematocrit 26.8 % (42.0-52.0); Hemoglobin 8.9 g/dl (14.0-18.0); Mean Corpuscular HGB Conc 33.2 g/dl (31.0-36.0); Mean Corpuscular Hemoglobin 31.1 pg (27.0-33.0); Mean Corpuscular Volume 93.7 fL (80.0-98.0); Mean Platelet Volume 10.1 fL (9.4-12.4); Platelet Count 115 X10*3/uL (160-400); Red Blood Count 2.86 X10*6/uL (4.60-5.80); Red Cell Distribution Width 15.1 % (11.0-16.0); White Blood Count 3.9 X10*3/uL (4.8-10.8)
[2024-04-22 07:54] LABS: Anion Gap 13 (12-20); Blood Urea Nitrogen 46 mg/dL (9-16); Calcium 8.3 mg/dL (8.4-10.2); Carbon Dioxide 20 mmol/L (22-29); Chloride 111 mmol/L (96-108); Creatinine Clr Calc Pharmacy 28.6; Estimated Glomerular Filt Rate 22; Glucose Random 94 mg/dL (60-115); Potassium 4.1 mmol/L (3.3-5.1); Sodium 140 mmol/L (135-145)
[2024-04-22] MEDS: Amiodarone HCL 200 MG TABLET 400 MG PO (08:42)
[2024-04-22] MEDS: Metoprolol Succinate ER 25 MG TAB.ER.24H PO (08:42)
[2024-04-22] MEDS: 0.9 % Sodium Chloride Flush 3 ML SYRINGE IVFLUSH (08:43)
[2024-04-22] MEDS: Famotidine 20 MG TABLET PO (08:43)
[2024-04-22] MEDS: Apixaban 5 MG TABLET PO (08:43)
[2024-04-22] MEDS: Furosemide 40 MG TABLET PO (08:43)
[2024-04-22] MEDS: Sodium Bicarbonate 650 MG TABLET PO (08:43)
[2024-04-22] MEDS: Clopidogrel Bisulfate 75 MG TABLET PO (08:43)
--- NOTE | 2024-04-22 10:42 | P.DS_ITS ---
DS: Providers Provider Date of Service: 04/22/24 Date of admission: 04/19/24 17:15 Date of discharge: 04/22/24 Primary care physician: Unknown Physician Consults: 04/19/24 14:11 Consult to Cardiology Stat Consulting Provider: [facility] Reason for consultation: rapid flutter Has provider been notified: Yes 04/19/24 17:15 Consult to Cardiology Routine Consulting Provider: [facility] Reason for consultation: aflutter rvr 04/21/24 07:58 Consult to Nephrology Routine Consulting Provider: [facility] Reason for consultation: BARB on CKD, Metabolic acidosis for your evaluation Attending physician on discharge: Juve Howell Discharging clinician: Bev Bhardwaj DS: Diagnosis Discharge Diagnosis (1) Acute renal failure: Status: Acute DS: Summary Hospital Course Hospital Course: H&P on the day of admission 73-year-old male with history of remote CVA 10 years ago with residual left-sided weakness, hypertension, chronic bilateral knee pain and suspected underlying dementia presented to the ED earlier today from [facility] due to palpitations and confusion. The patient was recently admitted to [facility] from 03/25-04/09 following cardiac arrest x3 with ventricular fibrillation and cardiogenic shock and ischemic cardiomyopathy with EF 30-35% with akinesis of anterior wall and apex. 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 He had been referred to bypass surgery but was not felt to be a good candidate. Subsequently he developed a complete heart block and had a dual chamber ICD placed prior to discharging to short-term rehab. He was discharged on aspirin and Plavix as well as carvedilol 6.25 mg twice daily and isosorbide hydralazine combination. This morning at rehab, was noted to be confused from baseline though there is so me question of post cardiac arrest encephalopathy due to anoxic brain injury. The patient is a limited historian is not sure why he is in the hospital though his is at bedside who does assist with history. While admitted was intubated and developed and was treated for aspriation pneumonia, completed course of zosyn. The patient denies any chest pain, sob, abd pain. No reported melena, hematochezia, diarrhea, fevers, chills. Does have residual cough. Since arrival has been tachycardic to 150. Initially thought to have SVt and was treated with adenosine. However, when rate slowed slightly, rhythm confirmed to be atrial flutter with rvr, still maintaining 144-155 and also tachypneic. No hypotension. No leukocytosis. H/H 9.9/30.3% which is improved from h/h on [facility] discharge. Creat 3.75, was last 2.7 on discharge from [facility]. BUN 57. Lytes wnl. Initial trop 121, repeat pending. CXR negative for acute cardiopulmonary abnormality. He give IV lopressor 5mg x2 with drop in bp around 100/60. Seen by cardiology recommending dig load 0.5mg and started on PO metoprolol 25mg recommend TID. HR remains elevated 145 on exam. BP stable. He will be admitted for further management of aflutter wtih rvr, encephalopathy, and barb. New onset atrial flutter with RVR coverted to sinus Initially treated with Lovenox, changed to Eliquis for anticoagulation Started on metoprolol 25 mg XL seen by Cardiology and started on Amiodarone 400 mg bid for 10 days then 200 mg daily Acute kidney injury on CKD4 complicated with acute metabolic acidosis likely due to hypoperfusion with Afib rvr Low Bicarb of 17 creat 3.3, was last 2.7 04/09 [facility] started on NaCo3 TID, bicarb improved, creatinine improved to 2.87 follow BMP and DC tomorrow if corrected metabolic encephalopathy 2/2 hx anoxic brain injury following cardiac arrest x3 03/25/24 per patient has been confused since discharge monitor mentation, sames around his new baseline thrombocytopenia acute on chronic follow platelet levels Time Attestation Discharge Coordination Time (in mins): 40 Quality: Safe Use of Opioids Does Pt have an Active Cancer Diagnosis on the Problem List?: No Quality: Stroke Does the patient have a stroke diagnosis?: No Physical Exam Vital Signs: Vital Signs: Last Vital Signs Temp 97.4 F 04/22/24 07:30 Pulse 76 04/22/24 07:30 Resp 18 04/22/24 07:30 BP 147/65 H 04/22/24 07:30 Pulse Ox 95 04/22/24 07:30 O2 Del Method Room Air 04/22/24 07:30 BMI result Body Mass Index 36.4 Const: General: cooperative, comfortable, alert and awake Nutritional Appearance: overweight Resp: Effort & Inspection: normal respiratory effort, able to speak in complete sentences, no respiratory distress and no use of accessory muscles Cardio: Rate: regular rate GI: Inspection: No distended Palpation (GI): Soft to palpation Neuro: General: moves all extremities DS: Data Data Completed and Pending Labs on day of discharge: Laboratory Results - last 24 hr 04/22/24 07:22 WBC 3.9 L RBC 2.86 L Hgb 8.9 L Hct 26.8 L MCV 93.7 MCH 31.1 MCHC 33.2 RDW 15.1 Plt Count 115 L MPV 10.1 Absolute Nucleated RBC 0.000 Nucleated RBC % (auto) 0.0 Sodium 140 Potassium 4.1 Chloride 111 H Carbon Dioxide 20 L Anion Gap 13 BUN 46 H Creatinine 2.87 H Estim Creat Clear Calc 28.6 Estimated GFR 22 Random Glucose 94 Calcium 8.3 L Discharge Plan Discharge Anticipated Discharge Date/Time: 04/22/24 01:30 Patient Disposition: Xfer SNF Discharge Diagnosis: atrial flutter BARB/metabolic acidosis Referrals: Radha Merino [facility] [Outside] - 1 Day (SHORT TERM REHAB) Physician,Unknown J [Primary Care Provider] - 1 Week Discharge Medications: New Eliquis 5 mg Tablet 5 mg PO BID Qty: 20 0RF amiodarone 200 mg Tablet See Rx Instructions .ROUTE .COMPLEX Qty: 30 0RF Rx Instructions: 400 mg twice daily for 10 days (end 04/30) then 200 mg daily after that metoprolol succinate 25 mg Tablet Extended Release 24 Hr 25 mg PO DAILY Qty: 30 0RF Protocol: Hold for SBP/HR < HOLD for SBP < : 90 HOLD for HR < : 60 sodium bicarbonate 650 mg Tablet 650 mg PO BID Qty: 30 0RF Continued furosemide 40 mg Tablet 40 mg PO DAILY@0900 atorvastatin 40 mg Tablet 40 mg PO BEDTIME acetaminophen 325 mg Tablet 650 mg PO NEEDED MDD 3 Grams in 24 hrs PRN (Reason: Elevated Temps) melatonin 3 mg Tablet 3 mg PO BEDTIME clopidogrel 75 mg Tablet 75 mg PO DAILY@0900 famotidine 20 mg Tablet 20 mg PO DAILY magnesium hydroxide [Milk of Magnesia] 400 mg/5 mL Suspension 30 ml PO DAILY PRN (Reason: Constipation) bisacodyl 10 mg Suppository 10 mg [place] DAILY PRN (Reason: If MoM not effective) Discontinued hydralazine 25 mg Tablet 25 mg PO BID aspirin 81 mg Tablet,Chewable 81 mg PO DAILY Discharge Orders: Discharge Order (Routine); Ordered 04/22/24 Ordered By: Bev Bhardwaj Activity on Discharge: As tolerated Stand Alone Forms: Patient Portal Discharge page Print Language: Yakut Care Plan Goals: see below Health Concerns: Atrial fibrillation with rapid ventricular response BARB on CKD4/metabolic acidosis Acute on chronic thrombocytopenia Plan of Treatment: Started on Eliquis for anticoagulation, monitor CBC in one week For atrial flutter, started on metoprolol 25 mg daily started on amiodarone, take 400 mg twice daily until 04/30, then take 200 mg once daily Call to schedule follow-up appointment with Cardiology Stop taking aspirin, continue taking Plavix For thrombocytopenia, monitor platelet level periodically will need outpatient follow up with nephrology for CKD to monitor kidney function, and bicarb levels. recheck BMP in one week Assessment: see discharge summary Discharge Date/Time: 04/22/24 14:57
[2024-04-22 11:42] VITALS: BP 115/58; PULSE 69; RESP 20; TEMP 36.3; O2SAT 97
--- NOTE | 2024-04-22 12:57 | MHC.CM.PN ---
PT MEDCIALLY CLEARED FOR DC BACK TO [facility], CM CONTACTED PT'S DURAN AT NUMBER ON FILE AND DURAN AGREEABLE TO PLAN AND WILL BE VISITING PT AT [facility] AROUND 4PM, [facility] FOR BLS TRANSPORT PT HAS [facility] MEDICARE.
--- NOTE | 2024-04-22 12:58 | P.PNCA_ITS ---
Subjective Subjective Date of Service: 04/22/24 Interval history: Seen and examined at bedside. Creatinine improving. Continues to be in atrial sensed V paced rhythm. Physical Exam Vital Signs: Last Vital Signs Temp 97.4 F 04/22/24 11:42 Pulse 69 04/22/24 11:42 Resp 20 04/22/24 11:42 BP 115/58 L 04/22/24 11:42 Pulse Ox 97 04/22/24 11:42 O2 Del Method Room Air 04/22/24 11:42 BMI result Body Mass Index 36.4 GENERAL APPEARANCE: Obese, in no distress. NECK: no carotid bruit, no obvious jugular venous distention. SKIN: no suspicious lesions, warm and dry. HEART: no murmurs, regular rate and rhythm. LUNGS: clear to auscultation anteriorly. ABDOMEN: soft, nontender. EXTREMITIES: no edema. PERIPHERAL PULSES: equal. NEUROLOGIC: No gross deficits, Objective Labs and Meds 04/22/24 07:22 04/22/24 07:22 Lab results: Laboratory Results - last 24 hr 04/22/24 07:22 WBC 3.9 L RBC 2.86 L Hgb 8.9 L Hct 26.8 L MCV 93.7 MCH 31.1 MCHC 33.2 RDW 15.1 Plt Count 115 L MPV 10.1 Absolute Nucleated RBC 0.000 Nucleated RBC % (auto) 0.0 Sodium 140 Potassium 4.1 Chloride 111 H Carbon Dioxide 20 L Anion Gap 13 BUN 46 H Creatinine 2.87 H Estim Creat Clear Calc 28.6 Estimated GFR 22 Random Glucose 94 Calcium 8.3 L Progress Note: A&P Assessment and plan (1) Atrial flutter: Status: Acute (2) Ischemic cardiomyopathy: Status: Acute (3) Acute renal failure: Status: Acute Plan 73-year-old gentleman with complex cardiovascular issues who recently left [facility] after cardiac arrest with ventricular fibrillation and was diagnosed with multivessel disease. He was in shock and was supported with Impella CP. He was deemed not a good surgical candidate by surgery and eventually developed complete heart block requiring dual-chamber ICD placement (EF was 30-35%). He is presenting to [facility] with confusion and tachycardia and was noticed to be in atrial flutter. He was given digoxin and beta-wilbert and it appears he broke out of flutter overnight. I think he had some underperfusion while he was in an arrhythmia and creatinine has worsened. His baseline creatinine was 2.7 when he left [facility]. Creatinine is improving. Digoxin was stopped and amiodarone was started which he has should continue at the current dose for at least 10 days. After that dose should be decreased to 200 mg daily. Aspirin has been stopped. He will be on Eliquis and Plavix. He will follow up with [facility] as planned after his discharge from [facility]. Thank you for allowing me to participate in the care of your patient. Please feel free to contact me if you have any questions. Time Spent With Patient Time: Total time managing care of this patient today ____ minutes. Progress Note: Quality Stroke Does the patient have a stroke diagnosis?: No Procedures Date of Service Date of Service: 04/22/24
--- NOTE | 2024-04-22 13:41 | P.PNNP_ITS ---
Subjective Subjective Date of Service: 04/22/24 Interval history: Feels better Anxious to get this Physical Exam 2 Vital Signs: Vital Signs: Last Vital Signs Temp 97.4 F 04/22/24 11:42 Pulse 69 04/22/24 11:42 Resp 20 04/22/24 11:42 BP 115/58 L 04/22/24 11:42 Pulse Ox 97 04/22/24 11:42 O2 Del Method Room Air 04/22/24 11:42 BMI result Body Mass Index 36.4 GENERAL APPEARANCE: Obese, in no distress. NECK: no carotid bruit, no obvious jugular venous distention. SKIN: no suspicious lesions, warm and dry. HEART: no murmurs, regular rate and rhythm. LUNGS: clear to auscultation anteriorly. ABDOMEN: soft, nontender. EXTREMITIES: no edema. PERIPHERAL PULSES: equal. NEUROLOGIC: No gross deficits, Objective Data Labs 04/22/24 07:22 04/22/24 07:22 Labs: Laboratory Results - last 24 hr 04/22/24 07:22 WBC 3.9 L RBC 2.86 L Hgb 8.9 L Hct 26.8 L MCV 93.7 MCH 31.1 MCHC 33.2 RDW 15.1 Plt Count 115 L MPV 10.1 Absolute Nucleated RBC 0.000 Nucleated RBC % (auto) 0.0 Sodium 140 Potassium 4.1 Chloride 111 H Carbon Dioxide 20 L Anion Gap 13 BUN 46 H Creatinine 2.87 H Estim Creat Clear Calc 28.6 Estimated GFR 22 Random Glucose 94 Calcium 8.3 L Procedures Date of Service Date of Service: 04/22/24 Assessment & Plan Assessment and plan (1) Acute renal failure: Status: Acute Plan 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 b.i.d. to correct acidosis. Continue rest of the current supportive care Shall closely follow-up in the office when discharged Time Spent With Patient Time: Total time managing care of this patient today ____ minutes. Progress Note: Quality Stroke Does the patient have a stroke diagnosis?: No
== END 2024-04-22 14:57 | disposition skilled nursing facility (03) | DRG 308 ==
LOC: HO.ED 14:54 → HO.EDOVER 17:26 → HO.IMC 19:45
PROVIDERS: Student in an Organized Health Care Education/Training Program; Admitting Provider Physician Assistant; Emergency Provider Emergency Medicine; PCP Internal Medicine; Visit Provider Physician Assistant Medical
DX: I48.92 Unspecified atrial flutter (principal); G93.41 Metabolic encephalopathy; N17.0 Acute kidney failure with tubular necrosis; I13.0 Hypertensive heart and chronic kidney disease with heart failure and stage 1 through stage 4 chronic kidney disease, or unspecified chronic kidney disease; I50.22 Chronic systolic (congestive) heart failure; N18.4 Chronic kidney disease, stage 4 (severe); I69.354 Hemiplegia and hemiparesis following cerebral infarction affecting left non-dominant side; E87.21 Acute metabolic acidosis; Z66 Do not resuscitate; I25.10 Atherosclerotic heart disease of native coronary artery without angina pectoris; I44.2 Atrioventricular block, complete; I25.5 Ischemic cardiomyopathy; I25.2 Old myocardial infarction; Z86.74 Personal history of sudden cardiac arrest; Z95.810 Presence of automatic (implantable) cardiac defibrillator; Z79.01 Long term (current) use of anticoagulants; Z79.899 Other long term (current) drug therapy
CPT/HCPCS: 36415; 71045; 80048; 80053; 84484; 85025; 85027; 85610; 93005; 97110; 97116; 97162; 99285; J0153; J1160; J1650

== ENCOUNTER → 2024-04-19 14:21 | Outpatient (BNV) | payer MEDICARE, SELFPAY | PROVIDERS: Emergency Provider Emergency Medicine; Visit Provider Internal Medicine Cardiovascular Disease | DX: I48.4 Atypical atrial flutter (principal); I25.5 Ischemic cardiomyopathy; N17.9 Acute kidney failure, unspecified | CPT/HCPCS: 93010; 99223; 99232; 99233 ==

== ENCOUNTER 2024-04-19 17:15 | Outpatient (BNV) | payer MEDICARE, SELFPAY | END 2024-04-20 14:01 | PROVIDERS: Admitting Provider Physician Assistant; Emergency Provider Emergency Medicine; Visit Provider Internal Medicine Cardiovascular Disease | DX: I48.92 Unspecified atrial flutter (principal); R94.31 Abnormal electrocardiogram [ECG] [EKG] | CPT/HCPCS: 93010 ==

== ENCOUNTER → 2024-04-19 17:15 | Outpatient (BNV) | payer MEDICARE, SELFPAY | PROVIDERS: Admitting Provider Physician Assistant; Emergency Provider Emergency Medicine; Visit Provider Physician Assistant | DX: N17.9 Acute kidney failure, unspecified (principal); I25.5 Ischemic cardiomyopathy; I48.4 Atypical atrial flutter; E87.20 Acidosis, unspecified | CPT/HCPCS: 99223; 99232; 99239 ==

== ENCOUNTER → 2024-04-19 17:15 | Outpatient (BNV) | payer MEDICARE, SELFPAY | PROVIDERS: Admitting Provider Physician Assistant; Emergency Provider Emergency Medicine; Visit Provider Internal Medicine Nephrology | DX: N17.0 Acute kidney failure with tubular necrosis (principal); I12.9 Hypertensive chronic kidney disease with stage 1 through stage 4 chronic kidney disease, or unspecified chronic kidney disease; N18.9 Chronic kidney disease, unspecified | CPT/HCPCS: 99223; 99232 ==

== ENCOUNTER 2024-06-30 23:55 | Inpatient (IN) | payer MEDICARE, SELFPAY ==
--- NOTE | ~2024-06-30 | XR_ITS ---
EXAMINATION: XR CHEST CLINICAL INFORMATION: Dyspnea COMPARISON: Chest radiograph 04/19/2024 TECHNIQUE: Frontal view of the chest was obtained. FINDINGS: Left pectoral dual-lead pacer is noted. Diffuse fine pulmonary reticular opacities and vascular indistinctness is noted. Left base dense airspace opacification is noted. Blunting of left costophrenic sulcus visualized. XR/XR chest 1V IMPRESSION: *Moderate left lower lobe atelectasis and/or consolidation and small left pleural effusion. Findings are new compared with 04/19/2024. *Pulmonary vascular congestion. Electronically signed by: Salomón Mathews MD 07/01/2024 02:14 AM EDT
--- NOTE | ~2024-06-30 | CT_ITS ---
EXAMINATION: CT CHEST WITHOUT CONTRAST CLINICAL INFORMATION: Dyspnea. Evaluate for pneumonia. COMPARISON: Most recent chest radiograph done earlier the same day. TECHNIQUE: Multidetector volumetric CT imaging of the chest was done. Axial MIP volume rendering provided. Sagittal and coronal reformatted images were obtained. This CT examination was performed using dose optimization techniques as appropriate, variously including the following: *Automated exposure control. *Adjustment of mA and/or kV according to patient size (this includes techniques or standardized protocols for targeted exams where dose is matched to indication/reason for exam; i.e. extremities or head). *Use of iterative reconstruction technique. DLP: 265 mGy-cm FINDINGS: WORKER'S COMPENSATION CLAIMS EXAMINER: [id number] left and small right-sided pleural effusion. LUNGS/PLEURAL: Swdlv-zh-[id number] left and small right-sided pleural effusions with adjacent atelectasis versus infiltrates, left greater than right. No significant pulmonary nodule or mass. The central airways are patent. MEDIASTINUM: No cardiomegaly. No pericardial effusion. No thoracic aortic dilatation. Atherosclerotic calcifications. No significant mediastinal or hilar lymphadenopathy. Left chest wall pacer with its leads in the right heart. Unremarkable thyroid. CORONARY ARTERY CALCIFICATION: Present. AXILLA: No lymphadenopathy. UPPER ABDOMEN: Unremarkable. OSSEOUS STRUCTURES: Subacute/chronic bilateral rib fractures with new bone/callus formation. CT/CT chest wo IV con IMPRESSION: 1. Msjbd-[id number]-uaqksjnd left and small right-sided pleural effusions with adjacent atelectasis versus infiltrates, left greater than right. 2. Subacute/chronic bilateral rib fractures with new bone/callus formation. Fleischner guidelines were followed. Electronically signed by: Dillon Lucio MD 07/01/2024 08:15 PM EDT
[2024-07-01] VITALS (10 sets, daily range): BP systolic 140–189; BP diastolic 64–108; PULSE 83–111; RESP 18–24; TEMP 36.4–37; O2SAT 92–95; BMI 37.7; BMI 37.4
--- NOTE | 2024-07-01 | ECG_ITS ---
Test Reason : SOB Blood Pressure : / mmHG Vent. Rate : 104 BPM Atrial Rate : 104 BPM P-R Int : 160 ms QRS Dur : 118 ms QT Int : 396 ms P-R-T Axes : 039 254 045 degrees QTc Int : 520 ms Atrial-sensed ventricular-paced rhythm Abnormal ECG When compared with ECG of 20-APR-2024 14:01, Vent. rate has increased BY 24 BPM Referred By: Generic ED Physician Electronically Signed By:SHANA MANDUJANO MD
[2024-07-01 01:14] LABS: MANUAL DIFF FLAG NO
[2024-07-01 01:17] LABS: Influenza A PCR NEGATIVE (Negative); Influenza B PCR NEGATIVE (Negative); Resp Syncy Virus RNA Qual PCR NEGATIVE (Negative); SARS COV2 PCR INHOUSE NEGATIVE (Negative)
[2024-07-01 01:20] LABS: Basophils Absolute Auto 0.1 X10*3/uL (0.0-0.2); Basophils Percent Auto 0.9 % (0-2); Eosinophils Absolute Auto 0.1 X10*3/uL (0.0-0.4); Eosinophils Percent Auto 1.4 % (0-4); Hemoglobin 12.4 g/dl (14.0-18.0); Imm Gran Abs Auto 0.04 X10*3/uL (0.00-0.03); Imm Gran Pct Auto 0.7 % (0.0-0.4); Lymphocytes Absolute Auto 0.7 X10*3/uL (1.2-4.9); Lymphocytes Percent Auto 12.4 % (20-40); Mean Corpuscular HGB Conc 32.6 g/dl (31.0-36.0); Mean Corpuscular Hemoglobin 30.8 pg (27.0-33.0); Mean Corpuscular Volume 94.5 fL (80.0-98.0); Mean Platelet Volume 9.4 fL (9.4-12.4); Monocytes Absolute Auto 0.4 X10*3/uL (0.1-1.2); Monocytes Percent Auto 7.7 % (2-11); Neutrophils Absolute Auto 4.4 x10*3/uL (2.0-8.3); Neutrophils Percent Auto 76.9 % (45-73); Platelet Count 135 X10*3/uL (160-400); Red Blood Count 4.02 X10*6/uL (4.60-5.80); Red Cell Distribution Width 14.2 % (11.0-16.0); White Blood Count 5.7 X10*3/uL (4.8-10.8)
[2024-07-01 01:33] LABS: B Type Natriuretic Peptide 515 pg/mL (<100)
[2024-07-01 01:40] LABS: Alanine Aminotransferase 22 U/L (0-40); Albumin Level 3.7 g/dL (3.5-5.0); Alkaline Phosphatase 142 U/L (39-117); Anion Gap 13 (12-20); Aspartate Amino Transferase 22 U/L (5-37); Bilirubin Total 0.3 mg/dL (0.0-1.0); Blood Urea Nitrogen 25 mg/dL (9-16); Calcium 8.2 mg/dL (8.4-10.2); Carbon Dioxide 24 mmol/L (22-29); Chloride 109 mmol/L (96-108); Creatinine Clr Calc Pharmacy 46.6; Estimated Glomerular Filt Rate 38; Glucose Random 127 mg/dL (60-115); Potassium 4.2 mmol/L (3.3-5.1); Sodium 142 mmol/L (135-145); Total Protein 6.5 g/dL (6.5-8.0)
--- NOTE | 2024-07-01 02:20 | PC.NURSE ---
Pt a&ox4, no signs of distress. Pt ambulates with steady gait. Pt denies pain. Pts at bedside Plan of care ongoing.
--- NOTE | 2024-07-01 03:25 | ED_ITS ---
HPI - SOB/Dyspnea General Chief Complaint: Dyspnea Stated Complaint: sob Time Seen by Provider: 07/01/24 03:09 Source: patient and family Mode of arrival: ambulatory Limitations: no limitations History of Present Illness ED Provider: Dr. Li Wade HPI Narrative: Patient comes to the emergency room complaining of shortness of breath. According to the patient's , patient has had more noticeable shortness of breath with exertion especially walking up the stairs. However, tonight, they went to bed and tried to sleep. Patient had significant orthopnea my had to keep sitting up to catch his breath. Patient denies any significant coughing, no fever or chills. Patient has also noticed that his lower extremities have increase in size although they are always edematous. Patient denies any chest pain or abdominal pain. Related Data Home Medications ?Medication ?Instructions ?Recorded ?Confirmed acetaminophen 325 mg tablet 650 mg PO NEEDED PRN Elevated 04/19/24 04/19/24 Temps atorvastatin 40 mg tablet 40 mg PO BEDTIME 04/19/24 04/19/24 bisacodyl 10 mg rectal suppository 10 mg ME DAILY PRN If MoM not 04/19/24 04/19/24 effective clopidogrel 75 mg tablet 75 mg PO DAILY@0904/19/24 04/19/24 famotidine 20 mg tablet 20 mg PO DAILY 04/19/24 04/19/24 furosemide 40 mg tablet 40 mg PO DAILY@0900 04/19/24 04/19/24 magnesium hydroxide 400 mg/5 mL 30 ml PO DAILY PRN Constipation 04/19/24 04/19/24 oral suspension (Milk of Magnesia) melatonin 3 mg tablet 3 mg PO BEDTIME Insomnia 04/19/24 04/19/24 Previous Rx's ?Medication ?Instructions ?Recorded amiodarone 200 mg tablet See Rx Instructions .Route 04/22/24 .COMPLEX #30 tabs apixaban 5 mg tablet (Eliquis) 5 mg PO BID #20 tabs 04/22/24 metoprolol succinate 25 mg 25 mg PO DAILY #30 tabs 04/22/24 tablet,extended release 24 hr sodium bicarbonate 650 mg tablet 650 mg PO BID #30 tabs 04/22/24 Allergies Allergy/AdvReac Type Severity Reaction Status Date / Time No Known Allergies Allergy Verified 07/01/24 00:15 [No Known Allergies*] Review of Systems 2 Review of Systems: Constitutional : No Weight loss, No Fever, No Chills, No Night Sweats, No Fatigue, No Malaise ENT/Mouth : No Hearing loss, No Ear Pain, No Nasal Congestion, No Sinus Pain, No Hoarseness, No sore throat, No Rhinorrhea, No Swallowing Difficulty Eyes: No Eye Pain, No Swelling, No Redness, No Foreign Body, No Discharge, No Vision Changes Cardiovascular : No Chest Pain, complaining of dyspnea with exertion, new onset orthopnea tonight Respiratory : No Cough, No Sputum, No Wheezing, No Smoke Exposure, No Dyspnea Gastrointestinal : No Nausea, No Vomiting, No Diarrhea, No Constipation, No abdominal Pain, No Hematochezia, No Melena Genitourinary : no irregular bleeding, No Dysuria, No Urinary Frequency, No Hematuria, No Urinary Incontinence, No Urgency, No Flank Pain, No Urinary Flow Changes, No Hesitancy Musculoskeletal : No joint pain, No Myalgias, No Joint Swelling Skin : No Skin Lesions, No rash Neuro : No Weakness, No Numbness, No Paresthesias, No Loss of Consciousness, No Dizziness, No Headache Psych : No Anxiety/Panic, No Depression, No SI/HI/AH/VH, No Social Issues, Heme/Lymph: No Bruising, No Bleeding,No Lymphadenopathy Endocrine : No Polyuria, No Polydipsia, No Temperature Intolerance [facility] Past Medical History Medical History Coronary artery disease History of cardiac arrest Complete heart block Ventilator associated pneumonia STEMI (ST elevation myocardial infarction) Atrial flutter Ischemic cardiomyopathy Hypertension 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 COPD (chronic obstructive pulmonary disease) Surgical History S/P ICD (internal cardiac defibrillator) procedure Social History Social History Patient Tobacco Use Status: Tobacco use Unknown Smoked in Last 30 Days: No Use of substances other than those prescribed or required for medical reasons: No Advance Directives: No Advance Directives Information Provided: Yes service: No Physical Exam 2 Vital Signs: Vital Signs: Last Vital Signs Temp 97.6 F 07/01/24 00:11 Pulse 111 H 07/01/24 00:11 Resp 24 H 07/01/24 00:11 BP 189/108 H 07/01/24 00:11 Pulse Ox 92 07/01/24 00:11 O2 Del Method Room Air 07/01/24 00:11 BMI result Body Mass Index 37.7 Const: Other: Appearance: Alert. Oriented X3. No acute distress. Eyes: Pupils equal, round and reactive to light. ENT: Pharynx normal. Neck: Normal inspection. Neck supple. No lymph nodes noted. No crepitus CVS: Normal heart rate and rhythm. Pulses normal. Normal S1 and S2 Respiratory: No respiratory distress bilateral mild crackles, no wheezing Abdomen: Soft and nontender. No rigidity. No distention. Skin: Skin warm and dry. Normal skin color. Normal skin turgor. Extremities: +3 pitting edema bilaterally. No Lacerations. No Rash Neuro: Oriented X 3. No motor deficit. No sensory deficit. Moving all extremities. No slurred speech. CN 2 through 12 grossly intact Psych: calm, cooperative, normal affect Medical Decision Making Medical Decision Making [facility] Narrative: My interpretation of labs, normal hematology, white blood cell count 5.7, chemistry shows a creatinine of 1.77 which is patient's baseline. Patient's BNP 515, troponin pending. RSV, COVID and flu are negative My interpretation of chest x-ray, there is vascular congestion and small left pleural effusion -radiology report: Possible infiltrate versus atelectasis. However, patient has no URI symptoms, white blood cell count normal no fever. At this time, antibiotics is not indicated, radiological findings secondary to fluid rather than infection -my interpretation EKG: Atrial sensed ventricular paced rhythm, heart rate 104, no ST segment depression or elevation, no T-wave inversion, QTC 520 -patient was ambulated in the emergency room, oxygen saturation remained above 90%, lowest 90%. However, patient became significantly short of breath. Patient can not tolerate lying flat. -patient was given Lasix IV 60 mg -I discussed the patient with Dr. Nugent, patient being admitted for CHF exacerbation Differential Diagnosis Differential Diagnoses: The differential diagnosis associated with the presentation includes (CHF, COVID, influenza, viral URI) Admission/Observation Consideration of admission/observation: Escalation of care including admission/observation considered Consult Healthcare Provider Management of the patient was discussed with: Hospitalist Lab Data [facility] Lab Attestation statement: I reviewed the patient's lab results. 10/10/24 01:06 07/01/24 01:06 Labs: Lab Results 07/01/24 07/01/24 Range/Units 00:36 01:06 WBC 5.7 (4.8-10.8) X10*3/uL RBC 4.02 L D (4.60-5.80) X10*6/uL Hgb 12.4 L D (14.0-18.0) g/dl Hct 38.0 L D (42.0-52.0) % MCV 94.5 (80.0-98.0) fL MCH 30.8 (27.0-33.0) pg MCHC 32.6 (31.0-36.0) g/dl RDW 14.2 (11.0-16.0) % Plt Count 135 L (160-400) X10*3/uL MPV 9.4 (9.4-12.4) fL Immature Gran % (Auto) 0.7 H (0.0-0.4) % Neut % (Auto) 76.9 H (45-73) % Lymph % (Auto) 12.4 L (20-40) % [place] % (Auto) 7.7 (2-11) % Eos % (Auto) 1.4 (0-4) % Baso % (Auto) 0.9 (0-2) % Lymph # (Auto) 0.7 L (1.2-4.9) X10*3/uL [place] # (Auto) 0.4 (0.1-1.2) X10*3/uL Eos # (Auto) 0.1 (0.0-0.4) X10*3/uL Baso # (Auto) 0.1 (0.0-0.2) X10*3/uL Abs Immat Gran (auto) 0.04 H (0.00-0.03) X10*3/uL Absolute Neuts (auto) 4.4 (2.0-8.3) x10*3/uL Absolute Nucleated RBC 0.000 (0.0-0.012) X10*3/uL Nucleated RBC % (auto) 0.0 (0.0-0.2) /100WBC Sodium 142 (135-145) mmol/L Potassium 4.2 (3.3-5.1) mmol/L Chloride 109 H (96-108) mmol/L Carbon Dioxide 24 (22-29) mmol/L Anion Gap 13 (12-20) BUN 25 H (9-16) mg/dL Creatinine 1.77 H (0.5-1.4) mg/dL Estim Creat Clear Calc 46.6 Estimated GFR 38 Random Glucose 127 H (60-115) mg/dL Calcium 8.2 L (8.4-10.2) mg/dL Total Bilirubin 0.3 (0.0-1.0) mg/dL AST 22 (5-37) U/L ALT 22 (0-40) U/L Alkaline Phosphatase 142 H (39-117) U/L B-Natriuretic Peptide 515 H (<100) pg/mL Total Protein 6.5 (6.5-8.0) g/dL Albumin 3.7 (3.5-5.0) g/dL Influenza Type A (PCR) NEGATIVE (Negative) Influenza Type B (PCR) NEGATIVE (Negative) RSV RNA Qual (PCR) NEGATIVE (Negative) SARS-CoV-2 RNA (RT-PCR) NEGATIVE (Negative) Independent Interpretation I performed an independent interpretation of an: EKG and Plain X-Ray Radiology Impression Discussion of test interpretation with radiology: I have reviewed the radiologist's reading. Radiologist Impression: Left pectoral dual-lead pacer is noted. Diffuse fine pulmonary reticular opacities and vascular indistinctness is noted. Left base dense airspace opacification is noted. Blunting of left costophrenic sulcus visualized. XR/XR chest 1V IMPRESSION: *Moderate left lower lobe atelectasis and/or consolidation and small left pleural effusion. Findings are new compared with 04/19/2024. *Pulmonary vascular congestion Independent Historian Clinical information obtained from an independent historian. History obtained from or confirmed by: Spouse Critical Care Time Critical Care Time Critical Care Time: Yes Total Critical Care Time: 60 Attestation: I have personally provided critical care time. Time includes review of lab data, radiology results, discussion with consultants, and monitoring for potential decompensation. Intervention performed as documented. Discharge Plan Discharge Clinical Impression: Acute exacerbation of CHF (congestive heart failure) Patient Disposition: Admitted As Inpatient Prescriptions: No Action furosemide 40 mg Tablet 40 mg PO DAILY@0900 atorvastatin 40 mg Tablet 40 mg PO BEDTIME acetaminophen 325 mg Tablet 650 mg PO NEEDED MDD 3 Grams in 24 hrs PRN (Reason: Elevated Temps) melatonin 3 mg Tablet 3 mg PO BEDTIME clopidogrel 75 mg Tablet 75 mg PO DAILY@0900 famotidine 20 mg Tablet 20 mg PO DAILY magnesium hydroxide [Milk of Magnesia] 400 mg/5 mL Suspension 30 ml PO DAILY PRN (Reason: Constipation) bisacodyl 10 mg Suppository 10 mg ME DAILY PRN (Reason: If MoM not effective) Eliquis 5 mg Tablet 5 mg PO BID Qty: 20 0RF amiodarone 200 mg Tablet See Rx Instructions .ROUTE .COMPLEX Qty: 30 0RF Rx Instructions: 400 mg twice daily for 10 days (end 04/30) then 200 mg daily after that metoprolol succinate 25 mg Tablet Extended Release 24 Hr 25 mg PO DAILY Qty: 30 0RF Protocol: Hold for SBP/HR < HOLD for SBP < : 90 HOLD for HR < : 60 sodium bicarbonate 650 mg Tablet 650 mg PO BID Qty: 30 0RF Print Language: Chinese
[2024-07-01 03:41] LABS: Troponin-I High Sensitivity 25.2 ng/L (<3.5-35.0)
--- NOTE | 2024-07-01 03:52 | P.HPHOSP_ITS ---
History of Present Illness Date of Service: 07/01/24 Chief Complaint: Dyspnea This is a 74-year-old male with pertinent history of CVA, hypertension, history of VFib cardiac arrest, congestive heart failure with reduced ejection fraction status post ICD, atrial flutter on Eliquis, chronic kidney disease, coronary artery disease who presents to the emergency department for evaluation of dyspnea. Patient states he got dyspneic on the day of presentation when he tried to go to bed. The dyspnea was worse with lying down and prompted him to sit up in bed. Also complaining of bilateral leg swelling. No chest pain or palpitations. Also has noted increased dyspnea with exertion when climbing a flight of stairs. No fever, chills, chest pain, palpitations, abdominal pain, changes in urinary or bowel habits. In the emergency department, BNP found to be elevated and imaging with pulmonary vascular congestion and pleural effusion Review of Systems 2 Cardiovascular: Cardiovascular: Reports dyspnea on exertion, Reports orthopnea and Reports paroxysmal nocturnal dyspnea Respiratory: Respiratory: Reports dyspnea on exertion Gastrointestinal: Gastrointestinal: Reports no additional gastrointestinal complaints Genitourinary: Genitourinary: Reports no additional male genitourinary complaints Musculoskeletal: Musculoskeletal: Reports no additional musculoskeletal complaints [facility] Medical History Coronary artery disease History of cardiac arrest Complete heart block Ventilator associated pneumonia STEMI (ST elevation myocardial infarction) Atrial flutter Ischemic cardiomyopathy Hypertension 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 COPD (chronic obstructive pulmonary disease) Pertinent family history: Not significant due to age Surgical History S/P ICD (internal cardiac defibrillator) procedure Social History Patient Tobacco Use Status: Tobacco use Unknown Smoked in Last 30 Days: No Use of substances other than those prescribed or required for medical reasons: No Advance Directives: No Advance Directives Information Provided: Yes service: No Meds Allergies Allergy/AdvReac Type Severity Reaction Status Date / Time No Known Allergies Allergy Verified 07/01/24 00:15 [No Known Allergies*] Home Medications ?Medication ?Instructions ?Recorded ?Confirmed ?Last Taken ?Type acetaminophen 325 mg tablet 650 mg PO NEEDED PRN Elevated 04/19/24 04/19/24 Unknown History Temps atorvastatin 40 mg tablet 40 mg PO BEDTIME 04/19/24 04/19/24 Unknown History bisacodyl 10 mg rectal suppository 10 mg SC DAILY PRN If MoM not 04/19/24 04/19/24 Unknown History effective clopidogrel 75 mg tablet 75 mg PO DAILY@0904/19/24 04/19/24 Unknown History famotidine 20 mg tablet 20 mg PO DAILY 04/19/24 04/19/24 Unknown History furosemide 40 mg tablet 40 mg PO DAILY@0904/19/24 04/19/24 Unknown History magnesium hydroxide 400 mg/5 mL 30 ml PO DAILY PRN Constipation 04/19/24 04/19/24 Unknown History oral suspension (Milk of Magnesia) melatonin 3 mg tablet 3 mg PO BEDTIME Insomnia 04/19/24 04/19/24 Unknown History Physical Exam 2 Vital Signs and Narrative: Vital Signs: Last Vital Signs Temp 97.6 F 07/01/24 00:11 Pulse 111 H 07/01/24 00:11 Resp 24 H 07/01/24 00:11 BP 189/108 H 07/01/24 00:11 Pulse Ox 92 07/01/24 00:11 O2 Del Method Room Air 07/01/24 00:11 BMI result Body Mass Index 37.7 Middle-aged male lying in bed in no distress Neck supple Regular rate and rhythm, S1-S2 heard Bilateral crackles without wheezing Abdomen soft nontender, no guarding, no rigidity Patient is awake, alert and oriented to self, place, time and person ; no focal motor deficit Psych: Normal mood Bilateral pedal edema Results Labs 07/01/24 01:06 07/01/24 01:06 Labs: Laboratory Results - last 24 hr 07/01/24 07/01/24 00:36 01:06 MCV 94.5 MCH 30.8 MCHC 32.6 RDW 14.2 Plt Count 135 L MPV 9.4 Immature Gran % (Auto) 0.7 H Neut % (Auto) 76.9 H Lymph % (Auto) 12.4 L [place] % (Auto) 7.7 Eos % (Auto) 1.4 Baso % (Auto) 0.9 Lymph # (Auto) 0.7 L [place] # (Auto) 0.4 Eos # (Auto) 0.1 Baso # (Auto) 0.1 Abs Immat Gran (auto) 0.04 H Absolute Neuts (auto) 4.4 Absolute Nucleated RBC 0.000 Nucleated RBC % (auto) 0.0 Anion Gap 13 Estim Creat Clear Calc 46.6 Estimated GFR 38 Random Glucose 127 H Calcium 8.2 L Total Bilirubin 0.3 AST 22 ALT 22 Alkaline Phosphatase 142 H Troponin I High Sens 25.2 D B-Natriuretic Peptide 515 H Total Protein 6.5 Albumin 3.7 Influenza Type A (PCR) NEGATIVE Influenza Type B (PCR) NEGATIVE RSV RNA Qual (PCR) NEGATIVE SARS-CoV-2 RNA (RT-PCR) NEGATIVE Imaging Radiologist's Impressions: Impressions Chest X-Ray 07/01/24 00:40 IMPRESSION: *Moderate left lower lobe atelectasis and/or consolidation and small left pleural effusion. Findings are new compared with 04/19/2024. *Pulmonary vascular congestion. Electronically signed by: Salomón Mathews MD 07/01/2024 02:14 AM EDT RP Assessment and Plan (1) Acute exacerbation of CHF (congestive heart failure): Status: Acute Plan This is a 74-year-old male with pertinent history of CVA, hypertension, history of VFib cardiac arrest, congestive heart failure with reduced ejection fraction status post ICD, atrial flutter on Eliquis, chronic kidney disease, coronary artery disease who presents to the emergency department for evaluation of dyspnea. #. Acute on chronic congestive heart failure with reduced EF: Will admit patient with IV diuresis. Strict I's and O's. Low-salt diet. Patient on beta- wilbert #. Chronic kidney disease: Monitor creatinine urine output with diuresis #. Atrial flutter: On amiodarone and Eliquis #. History of CVA/CAD: On Plavix and high-intensity statin Med rec pending DVT prophylaxis: Eliquis Full code. Discussed with patient at bedside Quality Stroke Does the patient have a stroke diagnosis?: No VTE Prior VTE?: No VTE Risk Level:: Medical - moderate - high VTE Device Contraindication: Treatment Not Indicated VTE Drug Contraindication: N/A - Med Ordered
[2024-07-01] MEDS: Furosemide 100 MG/10 ML VIAL 60 MG IVPUSH (04:11)
[2024-07-01 05:11] LABS: Hematocrit 39.6 % (42.0-52.0); Hemoglobin 13.2 g/dl (14.0-18.0); Mean Corpuscular HGB Conc 33.3 g/dl (31.0-36.0); Mean Corpuscular Hemoglobin 30.9 pg (27.0-33.0); Mean Corpuscular Volume 92.7 fL (80.0-98.0); Mean Platelet Volume 10.1 fL (9.4-12.4); Platelet Count 150 X10*3/uL (160-400); Red Blood Count 4.27 X10*6/uL (4.60-5.80); Red Cell Distribution Width 14.4 % (11.0-16.0); White Blood Count 6.5 X10*3/uL (4.8-10.8)
[2024-07-01 05:25] LABS: Anion Gap 18 (12-20); Blood Urea Nitrogen 25 mg/dL (9-16); Calcium 9.1 mg/dL (8.4-10.2); Carbon Dioxide 16 mmol/L (22-29); Chloride 112 mmol/L (96-108); Creatinine Clr Calc Pharmacy 46.3; Estimated Glomerular Filt Rate 38; Glucose Random 115 mg/dL (60-115); Potassium 5.4 mmol/L (3.3-5.1); Sodium 141 mmol/L (135-145)
[2024-07-01] MEDS: Furosemide 40 MG/4 ML VIAL IVPUSH (09:32)
[2024-07-01] MEDS: 0.9 % Sodium Chloride Flush 3 ML SYRINGE IVFLUSH ×3 (09:32→20:43)
--- NOTE | 2024-07-01 10:20 | PHA.MEDREC ---
Addendum entered by Arash Richmond 07/01/24 16:04: reviewed Addendum entered by Damaris Casillas 07/01/24 15:57: Following up from morning med rec. came and brought a med list with her. Furosemide is 20 mg daily. updated med rec with correct dosing. Original Note: Pharmacy Consult ? Medication Reconciliation Pharmacy has completed the medication reconciliation. Spoke with patient this morning around 08:30and he stated his Isha would be in soon went in around 10:30 and spoke to and she was able to confirm Acetaminophen 325mg 2 tabs at bedtime as needed for pain, Eliquis 5mg tabs 1 tab BID, Atorvastatin 40mg 1 tab @bedtime and Furosemide 40mg tab 1 tab daily. She confirmed he is no longer taking a Biscodyl suppository and Milk of Magnesia and he is absolutely not taking Sodium Bicarbonate per his Dr due to the amount of salt in those pills. She states she has a list at home and will be coming back in around 3-3:30 this after noon to confirm the medications she confirmed are correct and to confirm the remaining medications. The patient and his confirmed he took his medications yesterday.
--- NOTE | 2024-07-01 10:56 | MHC.CM.PN ---
CM met with Patient and his at bedside and addressed first the [facility] and then the IMM with them, providing them with the originals and copies have been placed on the chart. Patient lives with his on one side of a duplex and his Daughter and her family live on the other side. Patient is active with [facility] and he now uses a cane to assist with mobility. Home/resume said services is the goal and CM has initiated and will follow for dc planning. PCP is Dr. Escalera and will transport to home.
[2024-07-01] MEDS: hydrALAZINE HCl 25 MG TABLET PO ×2 (13:47→20:41)
[2024-07-01] MEDS: Apixaban 5 MG TABLET PO ×2 (13:47→20:41)
--- NOTE | 2024-07-01 13:47 | PM.EVENT ---
Event Note Date of Service: 07/01/24 Event Note: Seen and examined this morning Admitted earlier today for management of acute on chronic CHF Patient awake, alert, in no acute distress. On room air. Diminished breath sounds no rales appreciated Patient poor historian unable to report duration of symptoms, does report ongoing dyspnea with exertion Daily labs reveal hyperkalemia with potassium 5.4 although reported as hemolyzed specimen, we will repeat Chest x-ray showing possibility of pneumonia will obtain chest CT for further characterization Complex cardiac history, we will obtain Cardiology consult, continue IV Lasix for now. We will obtain records from [facility] Patient does not know baseline medications, pharmacy in process of doing med/rec - Further management as per admission H&P Time Spent With Patient Time: Total time managing care of this patient today ____ minutes.
[2024-07-01 15:18] LABS: Procalcitonin 0.09 ng/mL
[2024-07-01] MEDS: Atorvastatin Calcium 40 MG TABLET PO (20:41)
[2024-07-02 03:34] VITALS: BP 140/84; PULSE 84; RESP 18; TEMP 36.6; O2SAT 97
[2024-07-02 07:10] VITALS: BP 167/82; PULSE 92; RESP 20; TEMP 36.1; O2SAT 95
[2024-07-02 07:10] LABS: Anion Gap 12 (12-20); Blood Urea Nitrogen 23 mg/dL (9-16); Calcium 9.3 mg/dL (8.4-10.2); Carbon Dioxide 29 mmol/L (22-29); Chloride 107 mmol/L (96-108); Creatinine Clr Calc Pharmacy 47.2; Estimated Glomerular Filt Rate 39; Glucose Random 96 mg/dL (60-115); Potassium 4.1 mmol/L (3.3-5.1); Sodium 144 mmol/L (135-145)
[2024-07-02 07:21] LABS: Hematocrit 41.3 % (42.0-52.0); Hemoglobin 13.2 g/dl (14.0-18.0); Mean Corpuscular Hemoglobin 30.1 pg (27.0-33.0); Mean Corpuscular Volume 94.3 fL (80.0-98.0); Platelet Count 134 X10*3/uL (160-400); Red Blood Count 4.38 X10*6/uL (4.60-5.80); Red Cell Distribution Width 14.5 % (11.0-16.0)
[2024-07-02] MEDS: 0.9 % Sodium Chloride Flush 3 ML SYRINGE IVFLUSH ×3 (10:25→20:02)
[2024-07-02] MEDS: Clopidogrel Bisulfate 75 MG TABLET PO (10:26)
[2024-07-02] MEDS: Famotidine 20 MG TABLET PO (10:26)
[2024-07-02] MEDS: Metoprolol Succinate ER 25 MG TAB.ER.24H PO (10:26)
[2024-07-02] MEDS: Apixaban 5 MG TABLET PO ×2 (10:26→20:02)
[2024-07-02] MEDS: hydrALAZINE HCl 25 MG TABLET PO (10:27)
[2024-07-02] MEDS: Amiodarone HCL 200 MG TABLET PO (10:27)
[2024-07-02] MEDS: Furosemide 40 MG/4 ML VIAL IVPUSH (10:27)
--- NOTE | 2024-07-02 10:27 | P.CONCA_ITS ---
History of Present Illness History of Present Illness Date of Service: 07/02/24 Requesting physician: Bev Bhardwaj Consult reason: congestive heart failure Chief complaint: Dyspnea Narrative: I was consulted to see Aaron in cardiology consultation for management of his decompensated congestive heart failure. He is a 74-year-old male, was present at bedside. Patient with complicated recent past medical history with cardiac arrest few months ago treated at [facility] with possible mild anoxic brain injury, severe cardiomyopathy, subsequent cardiac catheterization revealing multivessel coronary disease that could not be revascularized surgically status post biventricular ICD placement for reduced EF, sudden cardiac as well as complete heart block. Patient admitted couple months ago with acute renal failure at that time was diagnose with atrial flutter. He then converted to sinus rhythm and started on amiodarone appropriately to maintain rhythm given his low cardiac output status with atrial flutter. Since then he was discharged home. At home he walks with a cane and a walker and was doing well. Not measuring his weight on a daily basis. He came to the hospital with progressive shortness of breath and leg edema as well as arm edema. Came to the hospital yesterday was noted to be in decompensated congestive heart failure with a BNP in the 500 range. Creatinine has remained stable around 1.7 range. He said he feels a lot better compared to yesterday after diuresis and has about negative balance listed of about 1800 cc in the chart. Creatinine has remained stable. Blood pressure remains elevated. He still has edema but says arm edema has improved significantly. His shortness of breath is improved. He had no chest pain. No lightheadedness, syncope. No prolonged palpitation irregular heartbeat. As per the she cooks with low- salt. Review of Systems 2 Constitutional: Constitutional: Reports no additional constitutional complaints Eyes: Eyes: Reports no additional eye complaints Cardiovascular: Cardiovascular: Denies Abdominal Distension, Denies chest pain, Reports leg edema, Denies lightheadedness, Denies Loss of Consciousness, Denies palpitations, Reports dyspnea on exertion and Reports orthopnea Respiratory: Respiratory: Reports no additional respiratory complaints and Reports dyspnea on exertion Gastrointestinal: Gastrointestinal: Reports no additional gastrointestinal complaints Musculoskeletal: Musculoskeletal: Reports no additional musculoskeletal complaints Integumentary/Breasts: Skin/Breast: Reports system reviewed and no additional complaints, except as docu Neurologic: Reports system reviewed and no additional complaints, except as documented Psychiatric: Psychiatric: Reports no additional psychiatric complaints Endocrine: Endocrine: Reports no additional endocrine complaints and Denies palpitations Hematologic/Lymphatic: Hematologic/Lymphatic: Reports no additional hematologic/lymphatic complaints Allergic/Immunologic: Allergic/Immunologic: Reports no additional allergic/immunologic complaints [facility] Past Medical History Medical History (Updated 07/02/24 @ 10:35 by sEteban Salomon MD) Atrial flutter Coronary artery disease History of cardiac arrest Complete heart block Ventilator associated pneumonia STEMI (ST elevation myocardial infarction) Ischemic cardiomyopathy Hypertension Hx of fci use of blood thinners COPD (chronic obstructive pulmonary disease) Surgical History Surgical History S/P ICD (internal cardiac defibrillator) procedure Social History Social History Household Members: Spouse Housing: House Do you presently have visiting nurse or other home services: No Patient Tobacco Use Status: Tobacco use Unknown Smoked in Last 30 Days: No Use of substances other than those prescribed or required for medical reasons: No Currently Displaying Signs/Symptoms of Drug Intoxication Withdrawal: No Have you been hit, kicked, punched, or otherwise hurt by someone within the past year? If so, by whom?: No Do you feel safe in your current relationship?: Yes Is there a partner from a previous relationship who is making you feel unsafe now?: No Are you made to feel afraid or neglected: No Advance Directives: No Advance Directives Information Provided: Yes Do you have a plan to hurt others: No Plan Recently lost weight without trying: No How much weight loss: Not applicable Eating poorly because of decreased appetite: No Nutrition screen score: 0 Nutrition Risks: No Nutritional Risk Poor oral hygiene: No service: No Meds Allergies Allergy/AdvReac Type Severity Reaction Status Date / Time No Known Allergies Allergy Verified 07/01/24 00:15 [No Known Allergies*] Active Medications: Current Medications Acetaminophen (Acetaminophen 325 Mg Tablet) 650 mg PO Q6H PRN PRN Reason: Pain, Mild (Pain Scale 1-3), fever or headache Amiodarone HCl (Amiodarone Hcl 200 Mg Tablet) 200 mg PO DAILY AVERY Apixaban (Apixaban 5 Mg Tablet) 5 mg PO BID [facility] Last Admin: 10/10/24 20:41 Dose: 5 mg Atorvastatin Calcium (Atorvastatin Calcium 40 Mg Tablet) 40 mg PO BEDTIME AVERY Last Admin: 07/01/24 20:41 Dose: 40 mg Calcium Carbonate (Calcium Carbonate 750 Mg Tab.Chew) 750 mg PO Q4H PRN PRN Reason: Heartburn Clopidogrel Bisulfate (Clopidogrel Bisulfate 75 Mg Tablet) 75 mg PO DAILY [facility] Famotidine (Famotidine 20 Mg Tablet) 20 mg PO DAILY AVERY Furosemide (Furosemide 40 Mg/4 Ml Vial) 40 mg IVPUSH DAILY [facility]; Protocol Last Admin: 07/01/24 09:32 Dose: 40 mg Hydralazine HCl (Hydralazine Hcl 25 Mg Tablet) 25 mg PO BID [facility]; Protocol Last Admin: 07/01/24 20:41 Dose: 25 mg Magnesium Hydroxide (Milk Of Magnesia 30 Ml Oral.Susp) 30 ml PO DAILY PRN PRN Reason: Constipation Melatonin (Melatonin 3 Mg Tablet) 6 mg PO BEDTIME PRN PRN Reason: Insomnia Metoprolol Succinate (Metoprolol Succinate Er 25 Mg Tab.Er.24h) 25 mg PO DAILY [facility]; Protocol Ondansetron HCl (Ondansetron Hcl 4 Mg/2 Ml Vial) 4 mg IVPUSH Q8H PRN PRN Reason: Nausea and Vomiting Sodium Chloride (0.9 % Sodium Chloride Flush 3 Ml Syringe) [facility] Last Admin: 07/01/24 20:43 Dose: 3 ml Home Medications ?Medication ?Instructions ?Recorded ?Confirmed ?Last Taken ?Type acetaminophen 325 mg tablet 650 mg PO BEDTIME PRN Elevated 04/19/24 07/01/24 Unknown History Temps atorvastatin 40 mg tablet 40 mg PO BEDTIME 04/19/24 07/01/24 06/30/24 History clopidogrel 75 mg tablet 75 mg PO DAILY@0900 04/19/24 07/01/24 06/30/24 History famotidine 20 mg tablet 20 mg PO DAILY 04/19/24 07/01/24 06/30/24 History melatonin 3 mg tablet 3 mg PO BEDTIME PRN Insomnia 04/19/24 07/01/24 06/30/24 History amiodarone 200 mg tablet 200 mg PO DAILY 07/01/24 07/01/24 06/30/24 History furosemide 20 mg tablet 20 mg PO DAILY 07/01/24 07/01/24 06/30/24 History hydralazine 25 mg tablet 25 mg PO BID 07/01/24 07/01/24 06/30/24 History Physical Exam 2 Vital Signs: Vital Signs: Last Vital Signs Temp 96.9 F 07/02/24 07:10 Pulse 92 07/02/24 07:10 Resp 20 07/02/24 07:10 BP 167/82 H 07/02/24 07:10 Pulse Ox 95 07/02/24 07:10 O2 Del Method Room Air 07/02/24 07:10 BMI result Body Mass Index 37.4 Const: General: cooperative, comfortable, no acute distress, alert and awake Nutritional Appearance: obese Orientation/consciousness: patient oriented x3 HEENT: Head: Yes normocephalic and Yes atraumatic Neck: Neck: Yes trachea midline, Yes supple and Yes JVD Resp: Effort & Inspection: normal respiratory effort Auscultation: rales on the left at the base and diminished lung sounds on the left in the lower lung rowe Cardio: Jugular venous distension: JVD Palpation: abnormal PMI displaced PMI Rate: regular rate Rhythm: regular rhythm Heart sounds: S1 normal heart sound present, S2 normal heart sound present, no click, no gallops, no murmurs and no rubs GI: Auscultation: normal bowel sounds Skin: General skin exam: no rashes or lesions noted and ecchymosis Neuro: General: patient oriented x3 and no focal motor deficits Extrem: General: No clubbing, No cyanosis and Yes edema Psych: Appearance: grossly normal Objective Labs and Meds 07/02/24 06:18 07/02/24 06:18 Lab results: Laboratory Results - last 24 hr 07/01/24 07/01/24 07/02/24 12:03 14:24 06:18 WBC 5.0 RBC 4.38 L Hgb 13.2 L Hct 41.3 L MCV 94.3 MCH 30.1 MCHC 32.0 RDW 14.5 Plt Count 134 L MPV 10.0 Absolute Nucleated RBC 0.000 Nucleated RBC % (auto) 0.0 Hold Purple Top SEE NOTE SEE NOTE Sodium 144 Potassium 4.0 D 4.1 Chloride 107 Carbon Dioxide 29 Anion Gap 12 BUN 23 H Creatinine 1.74 H Estim Creat Clear Calc 47.2 Estimated GFR 39 Random Glucose 96 Calcium 9.3 Procalcitonin 0.09 EKG shows atrially sensed ventricularly paced rhythm. Imaging Radiologist's impression: Impressions Chest CT 07/01/24 13:30 IMPRESSION: 1. [id number] left and small right-sided pleural effusions with adjacent atelectasis versus infiltrates, left greater than right. 2. Subacute/chronic bilateral rib fractures with new bone/callus formation. Fleischner guidelines were followed. Electronically signed by: Dillon Lucio MD 07/01/2024 08:15 PM EDT Assessment and Plan (1) Acute exacerbation of CHF (congestive heart failure): Status: Acute Acute decompensated congestive heart failure inpatient with reduced ejection fraction, presents with recurrent heart failure probably due to lack of understanding of management of heart failure with multiple comorbidities including atrial flutter which is currently suppressed, chronic kidney disease, obesity, non revascularizable coronary artery disease. Patient clinically is doing well but appears to be fluid overloaded. Continue IV diuresis with Lasix. Strict intake and output chart needs to be pursued. His heart failure management needs to be optimized. Given his elevated creatinine, would avoid using renin angiotensin aldosterone axis inhibitors for now. I would uptitrate his hydralazine to 50 mg b.i.d. and add Isordil 5 mg b.i.d. to his regimen. I would switch his metoprolol to Coreg 3.125 mg b.i.d.. Also add Jardiance 10 mg to his regimen. Continue monitor renal function and BNP tomorrow. Strict intake and output chart. Heart failure management was discussed with him in his in details. Importance of daily weight monitoring at home was discussed to use additional diuretics at home. Continue rhythm control approach, see below. Will follow (2) Coronary artery disease: Status: Acute Diffuse and significant CAD not surgically revascularized labile with ischemic cardiomyopathy. Continue aggressive medical management. Currently on Eliquis therapy and would avoid aspirin therapy. Also on Plavix. Continue the same. Continue high-intensity statin therapy. Continue aggressive blood pressure control, see above. (3) Paroxysmal atrial flutter: Status: Acute Paroxysmal atrial flutter, currently suppressed. Continue amiodarone therapy. Continue rhythm control approach which will help overall his stroke volume as well as management of heart failure. Avoidance of stimulants was discussed. Continue full oral anticoagulation with Eliquis. (4) Biventricular ICD (implantable cardioverter-defibrillator) in place: Status: Acute Biventricular ICD unknown type but seems to be working adequately on the EKG as well as monitor. Will obtain records. Will follow with you Procedures Date of Service Date of Service: 07/02/24
[2024-07-02 11:07] VITALS: BP 155/75; PULSE 89; RESP 20; TEMP 36.4; O2SAT 95
--- NOTE | 2024-07-02 12:58 | HO.PM.IMPN ---
Subjective Subjective Date of Service: 07/02/24 Interval History: Seen and examined this morning Follow-up for CHF Overall improving, dyspnea improving, swelling improving. Denies shortness of breath Review of Systems Review of Systems: Yes all other systems are reviewed and are negative Constitutional Constitutional: Denies chills and Denies fever(s) Cardiovascular Cardiovascular: Denies chest pain and Denies palpitations Endocrine Endocrine: Denies palpitations Physical Exam Vital Signs: Vital Signs: Last Vital Signs Temp 97.6 F 07/02/24 11:07 Pulse 89 07/02/24 11:07 Resp 20 07/02/24 11:07 BP 155/75 H 07/02/24 11:07 Pulse Ox 95 07/02/24 11:07 O2 Del Method Room Air 07/02/24 11:07 BMI result Body Mass Index 37.4 Const: General: cooperative, comfortable, alert and awake Nutritional Appearance: overweight Orientation/consciousness: oriented to person and oriented to place Resp: Effort & Inspection: normal respiratory effort, able to speak in complete sentences, no respiratory distress and no use of accessory muscles Cardio: Jugular venous distension: JVD GI: Inspection: No distended Palpation (GI): Soft to palpation Neuro: General: oriented to person, oriented to place, moves all extremities and CN's II-XI intact bilaterally Extrem: Other: trace edema b/l Objective Data Active Medications Acetaminophen (Acetaminophen 325 Mg Tablet) 650 mg PO Q6H PRN PRN Reason: Pain, Mild (Pain Scale 1-3), fever or headache Amiodarone HCl (Amiodarone Hcl 200 Mg Tablet) 200 mg PO DAILY REPLACED BY [facility] Last Admin: 07/02/24 10:27 Dose: 200 mg Documented By: MIRIAN Apixaban (Apixaban 5 Mg Tablet) 5 mg PO BID REPLACED BY [facility] Last Admin: 07/02/24 10:26 Dose: 5 mg Documented By: MIRIAN Atorvastatin Calcium (Atorvastatin Calcium 40 Mg Tablet) 40 mg PO BEDTIME REPLACED BY [facility] Last Admin: 07/01/24 20:41 Dose: 40 mg Documented By: MOLLY Calcium Carbonate (Calcium Carbonate 750 Mg Tab.Chew) 750 mg PO Q4H PRN PRN Reason: Heartburn Carvedilol (Carvedilol 3.125 Mg Tablet) 3.125 mg PO BID REPLACED BY [facility]; Protocol Clopidogrel Bisulfate (Clopidogrel Bisulfate 75 Mg Tablet) 75 mg PO DAILY REPLACED BY [facility] Last Admin: 07/02/24 10:26 Dose: 75 mg Documented By: MIRIAN Famotidine (Famotidine 20 Mg Tablet) 20 mg PO DAILY REPLACED BY [facility] Last Admin: 07/02/24 10:26 Dose: 20 mg Documented By: MIRIAN Furosemide (Furosemide 40 Mg/4 Ml Vial) 40 mg IVPUSH DAILY REPLACED BY [facility]; Protocol Last Admin: 07/02/24 10:27 Dose: 40 mg Documented By: MIRIAN Hydralazine HCl (Hydralazine Hcl 50 Mg Tablet) 50 mg PO BID REPLACED BY [facility]; Protocol Isosorbide Dinitrate (Isosorbide Dinitrate 5 Mg Tablet) 5 mg PO BID REPLACED BY [facility]; Protocol Magnesium Hydroxide (Milk Of Magnesia 30 Ml Oral.Susp) 30 ml PO DAILY PRN PRN Reason: Constipation Melatonin (Melatonin 3 Mg Tablet) 6 mg PO BEDTIME PRN PRN Reason: Insomnia Ondansetron HCl (Ondansetron Hcl 4 Mg/2 Ml Vial) 4 mg IVPUSH Q8H PRN PRN Reason: Nausea and Vomiting Sodium Chloride (0.9 % Sodium Chloride Flush 3 Ml Syringe) 3 ml IVFLUSH QSHIFT REPLACED BY [facility] Last Admin: 07/02/24 10:25 Dose: 3 ml Documented By: MIRIAN Labs 07/02/24 06:18 07/02/24 06:18 Labs: Laboratory Results - last 24 hr 07/01/24 07/02/24 14:24 06:18 MCV 94.3 MCH 30.1 MCHC 32.0 RDW 14.5 Plt Count 134 L MPV 10.0 Absolute Nucleated RBC 0.000 Nucleated RBC % (auto) 0.0 Hold Purple Top SEE NOTE Anion Gap 12 Estim Creat Clear Calc 47.2 Estimated GFR 39 Random Glucose 96 Calcium 9.3 Procalcitonin 0.09 Assessment and Plan (1) Acute exacerbation of CHF (congestive heart failure): Status: Acute Plan This is a 74-year-old male with pertinent history of CVA, hypertension, history of VFib cardiac arrest, congestive heart failure with reduced ejection fraction status post ICD, atrial flutter on Eliquis, chronic kidney disease, coronary artery disease who presents to the emergency department for evaluation of dyspnea. Acute on chronic heart failure with reduced EF continue IV Lasix Overall improving, net negative fluid balance Follow I's and O's Cardiology following Paroxysmal atrial fibrillation Suppressed on amiodarone Change metoprolol to carvedilol Continue Eliquis for anticoagulation Cardiology following CVA/CAD Continue Plavix, statin Hypertension Increase dose of hydralazine to 50 b.i.d., continue Coreg, isosorbide added Cardiology following ? of pneumonia Less likely, afebrile, no leukocytosis, no cough; procalcitonin low CT changes Most likely due to CHF Hyperkalemia False report as hemolyzed specimen, repeat normal Thrombocytopenia Chronic Chronic normocytic anemia Above transfusion threshold Morbid obesity BMI 37 Weight loss encouraged CKD3 Renal function appears to be at baseline DVT prophylaxis-Eliquis Patient will need ongoing inpatient stay for management of acute CHF Quality Stroke Does the patient have a stroke diagnosis?: No VTE Prior VTE?: No VTE Risk Level:: Medical - moderate - high VTE Device Contraindication: Treatment Not Indicated VTE Drug Contraindication: N/A - Med Ordered
--- NOTE | 2024-07-02 13:27 | P.CDIM_ITS ---
PROVIDER RESPONSE TEXT: To clarify, the appropriate diagnosis supported by the clinical indicators: Obesity QUERY TEXT: PHYSICIAN'S DOCUMENTATION REQUEST Date of Query: 07/02/2024 09:10 AM EDT Patient Name: Aaron Valverde Admit Date: 07/01/2024 Dear Bev Bhardwaj PA, A review of the medical record indicates additional documentation may be needed. Please review below and update the documentation accordingly. Clinical Indicators: Height: 5ft 9in Weight: 115kg BMI: 37.4 Nursing assessment: Patient is Obese class II If possible, please provide an associated diagnosis related to the abnormal BMI, such as: Overweight Obesity Other (explain) Clinically unable to determine (explain) Thank you, Dina Davenport, CCS, CDIS Use of terms such as suspected, likely, concern for, or probable (associated with a specific diagnosi s that is being evaluated, monitored, or treated as if it exists) are acceptable and can be coded in the inpatient se tting, when documented at the time of discharge. Please use your independent medical judgment in providing your response. THIS QUERY IS PART OF THE PERMANENT MEDICAL RECORD
[2024-07-02 15:47] VITALS: BP 138/75; PULSE 76; RESP 19; O2SAT 95
[2024-07-02 19:07] VITALS: BP 171/82; PULSE 86; RESP 20; TEMP 36.2; O2SAT 98
[2024-07-02] MEDS: carvediloL 3.125 MG TABLET PO (20:01)
[2024-07-02] MEDS: Atorvastatin Calcium 40 MG TABLET PO (20:01)
[2024-07-02] MEDS: Isosorbide Dinitrate 5 MG TABLET PO (20:02)
[2024-07-02] MEDS: hydrALAZINE HCl 50 MG TABLET PO (20:02)
[2024-07-03] VITALS: BP 128/62; PULSE 78; RESP 18; TEMP 36.2; O2SAT 92
[2024-07-03 03:14] VITALS: BP 135/63; PULSE 76; RESP 18; TEMP 36.5; O2SAT 93
[2024-07-03 08:00] VITALS: BP 162/84; PULSE 79; RESP 20; TEMP 36.8; O2SAT 97
[2024-07-03 08:15] LABS: Anion Gap 14 (12-20); Blood Urea Nitrogen 27 mg/dL (9-16); Calcium 8.9 mg/dL (8.4-10.2); Carbon Dioxide 26 mmol/L (22-29); Chloride 106 mmol/L (96-108); Creatinine Clr Calc Pharmacy 47.8; Estimated Glomerular Filt Rate 39; Glucose Random 92 mg/dL (60-115); Sodium 142 mmol/L (135-145)
[2024-07-03 08:19] LABS: B Type Natriuretic Peptide 165 pg/mL (<100)
[2024-07-03] MEDS: Clopidogrel Bisulfate 75 MG TABLET PO (10:10)
[2024-07-03] MEDS: Famotidine 20 MG TABLET PO (10:10)
[2024-07-03] MEDS: Amiodarone HCL 200 MG TABLET PO (10:10)
[2024-07-03] MEDS: hydrALAZINE HCl 50 MG TABLET PO (10:11)
[2024-07-03] MEDS: Apixaban 5 MG TABLET PO (10:11)
[2024-07-03] MEDS: Furosemide 40 MG/4 ML VIAL IVPUSH (10:11)
[2024-07-03] MEDS: Isosorbide Dinitrate 5 MG TABLET PO (10:11)
[2024-07-03] MEDS: carvediloL 3.125 MG TABLET PO (10:11)
[2024-07-03] MEDS: 0.9 % Sodium Chloride Flush 3 ML SYRINGE IVFLUSH (10:12)
--- NOTE | 2024-07-03 11:33 | PM.PNCARD ---
Subjective Subjective Date of Service: 07/03/24 Principal diagnosis: Decompensated congestive heart failure Interval history: Patient feeling a lot better. Has diuresed well. BNP is downtrending significantly. Blood pressure is elevated. Review of Systems Constitutional: Reports no additional constitutional complaints Reports system reviewed and no additional complaints, except as documented Cardiovascular: Reports no additional cardiovascular complaints Respiratory: Reports cough Gastrointestinal: Reports no additional gastrointestinal complaints Musculoskeletal: Reports no additional musculoskeletal complaints Reports system reviewed and no additional complaints, except as documented Physical Exam Vital Signs: Last Vital Signs Temp 98.2 F 07/03/24 08:00 Pulse 79 07/03/24 08:00 Resp 20 07/03/24 08:00 BP 162/84 H 07/03/24 08:00 Pulse Ox 97 07/03/24 08:00 O2 Del Method Room Air 07/03/24 08:00 BMI result Body Mass Index 37.4 Const General: cooperative, comfortable, no acute distress, alert and awake Nutritional Appearance: obese Orientation/consciousness: patient oriented x3 Neck Neck: Yes trachea midline, Yes supple and Yes no JVD Resp Effort & Inspection: normal respiratory effort Auscultation: clear to auscultation bilaterally Cardio Jugular venous distension: no JVD Rate: regular rate Rhythm: regular rhythm Heart sounds: S1 normal heart sound present, S2 normal heart sound present, no click, no gallops and no murmurs GI Auscultation: normal bowel sounds Skin General skin exam: no rashes or lesions noted Neuro General: patient oriented x3 and no focal motor deficits Extrem General: Yes no clubbing, cyanosis or edema Psych Appearance: grossly normal Objective Labs and Meds 07/02/24 06:18 07/03/24 07:20 Lab results: Laboratory Results - last 24 hr 07/03/24 07:20 Sodium 142 Potassium 4.0 Chloride 106 Carbon Dioxide 26 Anion Gap 14 BUN 27 H Creatinine 1.72 H Estim Creat Clear Calc 47.8 Estimated GFR 39 Random Glucose 92 Calcium 8.9 B-Natriuretic Peptide 165 H Progress Note: A&P Assessment and plan (1) Acute exacerbation of CHF (congestive heart failure): Status: Acute Assessment and Plan: Acute decompensated congestive heart failure has improved significantly. Clinically appears much improved. Switch to Lasix 40 mg daily on discharge. Continue with hydralazine 50 mg b.i.d. and Isordil 5 mg b.i.d. for vasodilators therapy. Increase carvedilol to 6.25 mg b.i.d. on discharge. Continue rhythm control approach. Patient prefers to follow up in [place]. Will set up for follow-up in 1-2weeks (2) Coronary artery disease: Status: Acute Assessment and Plan: Coronary artery disease not surgical revascularization. Currently on high-intensity statin therapy and Plavix therapy. Eventually will think about discontinuing Plavix therapy as he does not have any evidence of acute recent stenting or coronary syndrome. (3) Paroxysmal atrial flutter: Status: Acute Assessment and Plan: Paroxysmal atrial flutter which is currently stable on amiodarone therapy continue the same. Continue full oral anticoagulation with apixaban. Will set up for follow-up in 2 weeks time. Thank you for allowing me to partake in his care Time Spent With Patient Time: Total time managing care of this patient today ____ minutes. Progress Note: Quality Stroke Does the patient have a stroke diagnosis?: No Procedures Date of Service Date of Service: 07/03/24
[2024-07-03 12:00] VITALS: BP 117/58; PULSE 87; RESP 20; TEMP 36.4; O2SAT 93
--- NOTE | 2024-07-03 13:48 | P.DS_ITS ---
DS: Providers Provider Date of Service: 07/03/24 Date of admission: 07/01/24 10:45 Primary care physician: Jose Manuel Escalera MD Consults: 07/01/24 11:30 Consult to Cardiology Routine Consulting Provider: [facility] Reason for consultation: chf Has provider been notified: No DS: Diagnosis Discharge Diagnosis (1) Acute exacerbation of CHF (congestive heart failure): Status: Acute (2) Coronary artery disease: Status: Acute (3) Paroxysmal atrial flutter: Status: Acute DS: Summary Hospital Course Hospital Course: History and physical as per admitting provider. This is a 74-year-old male with pertinent history of CVA, hypertension, history of VFib cardiac arrest, congestive heart failure with reduced ejection fraction status post ICD, atrial flutter on Eliquis, chronic kidney disease, coronary artery disease who presents to the emergency department for evaluation of dyspnea. Patient states he got dyspneic on the day of presentation when he tried to go to bed. The dyspnea was worse with lying down and prompted him to sit up in bed. Also complaining of bilateral leg swelling. No chest pain or palpitations. Also has noted increased dyspnea with exertion when climbing a flight of stairs. No fever, chills, chest pain, palpitations, abdominal pain, changes in urinary or bowel serra bits. In the emergency department, BNP found to be elevated and imaging with pulmonary vascular congestion and pleural effusion 74-year-old man treated for acute on chronic heart failure with reduced ejection fraction. Initially treated with IV Lasix with overall improvement and that negative fluid balance. Seen evaluated by Cardiology with recommendation to switch Lasix to 40 mg daily, hydralazine 50 mg twice daily, Isordil 5 mg twice daily and increase carvedilol to 6.25 mg twice daily, continue rhythm control with amiodarone. Continue high-dose statin and Plavix. Follow-up in the office at [facility] in 2 weeks. He was also treated for paroxysmal atrial fibrillation, suppressed on amiodarone. CVA/CAD Continue Plavix, statin Hypertension hydralazine to 50 b.i.d., continue Coreg, isosorbide added Thrombocytopenia Chronic Chronic normocytic anemia Above transfusion threshold Morbid obesity BMI 37 Weight loss encouraged CKD3 Renal function appears to be at baseline Time Attestation Discharge Coordination Time (in mins): 35 Quality: Safe Use of Opioids Does Pt have an Active Cancer Diagnosis on the Problem List?: No Quality: Stroke Does the patient have a stroke diagnosis?: No Physical Exam Vital Signs: Vital Signs: Last Vital Signs Temp 97.6 F 07/03/24 12:00 Pulse 87 07/03/24 12:00 Resp 20 07/03/24 12:00 BP 117/58 L 07/03/24 12:00 Pulse Ox 93 07/03/24 12:00 O2 Del Method Room Air 07/03/24 12:00 BMI result Body Mass Index 37.4 Appearing in no acute distress head is normocephalic atraumatic eyes pupils are PERRLA sclera is anicteric mouth throat mucous membranes are intact and moist neck is supple no lymphadenopathy, no JVD noted lung sounds are clear to auscultation heart regular rate rhythm, clear S1, S2 positive bowel sounds, abdomen is soft, nontender neuro patient is alert x3, no focal deficits DS: Data Data Completed and Pending Labs on day of discharge: Laboratory Results - last 24 hr 07/03/24 07:20 Sodium 142 Potassium 4.0 Chloride 106 Carbon Dioxide 26 Anion Gap 14 BUN 27 H Creatinine 1.72 H Estim Creat Clear Calc 47.8 Estimated GFR 39 Random Glucose 92 Calcium 8.9 B-Natriuretic Peptide 165 H Discharge Plan Discharge Anticipated Discharge Date/Time: 07/03/24 13:07 Patient Disposition: Home, Self-Care Discharge Diagnosis: Heart failure with reduced ejection fraction exacerbation Referrals: Jose Manuel Escalera MD [Primary Care Provider] - 1 Week Discharge Medications: New furosemide [Lasix] 40 mg tablet 40 mg PO DAILY Qty: 30 0RF carvedilol 3.125 mg Tablet 6.25 mg PO BID Qty: 60 0RF Protocol: Hold for SBP/HR < HOLD for SBP < : 90 HOLD for HR < : 60 isosorbide dinitrate 5 mg Tablet 5 mg PO BID Qty: 60 0RF Protocol: Hold for SBP< HOLD for SBP < : 90 Continued amiodarone 200 mg tablet 200 mg PO DAILY Rx Instructions: 400 mg twice daily for 10 days (end 04/30) then 200 mg daily after that atorvastatin 40 mg Tablet 40 mg PO BEDTIME acetaminophen 325 mg Tablet 650 mg PO BEDTIME MDD 3 Grams in 24 hrs PRN (Reason: Elevated Temps) melatonin 3 mg Tablet 3 mg PO BEDTIME PRN (Reason: Insomnia) clopidogrel 75 mg Tablet 75 mg PO DAILY@0900 famotidine 20 mg Tablet 20 mg PO DAILY Eliquis 5 mg Tablet 5 mg PO BID Qty: 20 0RF Changed hydralazine 25 mg tablet 50 mg PO BID Qty: 120 0RF Discontinued furosemide 20 mg tablet 20 mg PO DAILY metoprolol succinate 25 mg Tablet Extended Release 24 Hr 25 mg PO DAILY Qty: 30 0RF Protocol: Hold for SBP/HR < HOLD for SBP < : 90 HOLD for HR < : 60 Discharge Orders: Discharge Order (Routine); Ordered 07/03/24 Ordered By: Angela Chance Diet: Advance to usual diet Activity on Discharge: As tolerated Stand Alone Forms: Patient Portal Discharge page Print Language: Upper Sorbian Care Plan Goals: You have been started on several new medications, please take as prescribed Follow-up with [facility] Concerns: Heart failure with reduced ejection fraction exacerbation Plan of Treatment: Follow-up with primary care provider as needed Take all medications as prescribed Assessment: See discharge summary
--- NOTE | 2024-07-03 14:01 | MHC.CM.PN ---
Pt is medically cleared for discharge home with resumption of previous [facility] services, pts to transport him home.
== END 2024-07-03 18:38 | disposition home or self-care (01) | DRG 291 ==
LOC: HO.ED 07-01 03:42 → HO.EDOVER 07-01 03:54 → HO.IMC 07-01 07:31
PROVIDERS: Physician Assistant Medical; Admitting Provider Student in an Organized Health Care Education/Training Program; Emergency Provider Emergency Medicine; PCP Internal Medicine; Visit Provider Nurse Practitioner Acute Care
DX: I13.0 Hypertensive heart and chronic kidney disease with heart failure and stage 1 through stage 4 chronic kidney disease, or unspecified chronic kidney disease (principal); I50.23 Acute on chronic systolic (congestive) heart failure; I48.92 Unspecified atrial flutter; I25.10 Atherosclerotic heart disease of native coronary artery without angina pectoris; D63.1 Anemia in chronic kidney disease; D69.6 Thrombocytopenia, unspecified; E66.01 Morbid (severe) obesity due to excess calories; Z68.37 Body mass index [BMI] 37.0-37.9, adult; N18.30 Chronic kidney disease, stage 3 unspecified; I25.5 Ischemic cardiomyopathy; Z20.822 Contact with and (suspected) exposure to COVID-19; Z86.73 Personal history of transient ischemic attack (TIA), and cerebral infarction without residual deficits; Z95.810 Presence of automatic (implantable) cardiac defibrillator; Z79.01 Long term (current) use of anticoagulants; Z79.02 Long term (current) use of antithrombotics/antiplatelets; Z79.899 Other long term (current) drug therapy
CPT/HCPCS: 0241U; 36415; 71045; 71250; 80048; 80053; 83880; 84132; 84145; 84484; 85025; 85027; 93005; 99285; J1940

== ENCOUNTER → 2024-07-01 00:17 | Outpatient (BNV) | payer MEDICARE, SELFPAY | PROVIDERS: Admitting Provider Student in an Organized Health Care Education/Training Program; Emergency Provider Emergency Medicine; PCP Internal Medicine; Visit Provider Internal Medicine Cardiovascular Disease | DX: R94.31 Abnormal electrocardiogram [ECG] [EKG] (principal) | CPT/HCPCS: 93010 ==

== ENCOUNTER → 2024-07-01 03:51 | Outpatient (BNV) | payer MEDICARE, SELFPAY | PROVIDERS: Admitting Provider Student in an Organized Health Care Education/Training Program; Emergency Provider Emergency Medicine; PCP Internal Medicine; Visit Provider Student in an Organized Health Care Education/Training Program | DX: I50.9 Heart failure, unspecified (principal); I25.10 Atherosclerotic heart disease of native coronary artery without angina pectoris; I48.92 Unspecified atrial flutter | CPT/HCPCS: 99222; 99233; 99239; 99499 ==

== ENCOUNTER → 2024-07-01 10:45 | Outpatient (BNV) | payer MEDICARE, SELFPAY | PROVIDERS: Admitting Provider Student in an Organized Health Care Education/Training Program; Emergency Provider Emergency Medicine; PCP Internal Medicine; Visit Provider Internal Medicine Cardiovascular Disease | DX: I50.9 Heart failure, unspecified (principal); I25.10 Atherosclerotic heart disease of native coronary artery without angina pectoris; I48.92 Unspecified atrial flutter; Z95.810 Presence of automatic (implantable) cardiac defibrillator | CPT/HCPCS: 99222; 99233 ==

== ENCOUNTER 2024-07-23 10:42 | Outpatient (REF) | payer MEDICARE, SELFPAY ==
[2024-07-23 12:00] LABS: B Type Natriuretic Peptide 408 pg/mL (<100)
[2024-07-23 12:52] LABS: Anion Gap 11 (12-20); Blood Urea Nitrogen 26 mg/dL (9-16); Calcium 8.8 mg/dL (8.4-10.2); Carbon Dioxide 28 mmol/L (22-29); Chloride 108 mmol/L (96-108); Estimated Glomerular Filt Rate 39; Glucose Random 89 mg/dL (60-115); Potassium 4.8 mmol/L (3.3-5.1); Sodium 142 mmol/L (135-145)
== END 2024-07-23 10:43 | disposition home or self-care (01) ==
LOC: HO.LAB 10:42
PROVIDERS: PCP Internal Medicine; Visit Provider Internal Medicine Cardiovascular Disease
DX: I25.10 Atherosclerotic heart disease of native coronary artery without angina pectoris (principal); I48.92 Unspecified atrial flutter; Z95.810 Presence of automatic (implantable) cardiac defibrillator; N17.9 Acute kidney failure, unspecified; I50.9 Heart failure, unspecified
CPT/HCPCS: 36415; 80048; 83880

== ENCOUNTER 2024-08-06 09:30 | Outpatient (REF) | payer MEDICARE, SELFPAY ==
[2024-08-06 09:56] LABS: MANUAL DIFF FLAG NO
[2024-08-06 10:39] LABS: Basophils Percent Auto 0.8 % (0-2); Eosinophils Absolute Auto 0.1 X10*3/uL (0.0-0.4); Eosinophils Percent Auto 1.4 % (0-4); Hematocrit 39.3 % (42.0-52.0); Hemoglobin 12.6 g/dl (14.0-18.0); Imm Gran Abs Auto 0.02 X10*3/uL (0.00-0.03); Imm Gran Pct Auto 0.4 % (0.0-0.4); Lymphocytes Absolute Auto 0.8 X10*3/uL (1.2-4.9); Mean Corpuscular HGB Conc 32.1 g/dl (31.0-36.0); Mean Corpuscular Hemoglobin 30.1 pg (27.0-33.0); Mean Corpuscular Volume 93.8 fL (80.0-98.0); Mean Platelet Volume 9.6 fL (9.4-12.4); Monocytes Absolute Auto 0.5 X10*3/uL (0.1-1.2); Monocytes Percent Auto 9.7 % (2-11); Neutrophils Absolute Auto 3.4 x10*3/uL (2.0-8.3); Neutrophils Percent Auto 70.7 % (45-73); Platelet Count 118 X10*3/uL (160-400); Red Blood Count 4.19 X10*6/uL (4.60-5.80); Red Cell Distribution Width 14.6 % (11.0-16.0); White Blood Count 4.9 X10*3/uL (4.8-10.8)
[2024-08-06 11:11] LABS: Alanine Aminotransferase 19 U/L (0-40); Albumin Level 3.7 g/dL (3.5-5.0); Alkaline Phosphatase 134 U/L (39-117); Anion Gap 14 (12-20); Aspartate Amino Transferase 26 U/L (5-37); Bilirubin Total 0.4 mg/dL (0.0-1.0); Blood Urea Nitrogen 26 mg/dL (9-16); Calcium 9.1 mg/dL (8.4-10.2); Carbon Dioxide 27 mmol/L (22-29); Chloride 105 mmol/L (96-108); Estimated Glomerular Filt Rate 39; Glucose Random 95 mg/dL (60-115); Magnesium 2.3 mg/dL (1.6-2.6); Potassium 3.8 mmol/L (3.3-5.1); Sodium 142 mmol/L (135-145); Total Protein 6.4 g/dL (6.5-8.0)
== END 2024-08-06 09:31 | disposition home or self-care (01) ==
LOC: HO.LAB 09:30
PROVIDERS: PCP Internal Medicine; Visit Provider Internal Medicine
DX: I50.20 Unspecified systolic (congestive) heart failure (principal); J44.9 Chronic obstructive pulmonary disease, unspecified; N18.9 Chronic kidney disease, unspecified
CPT/HCPCS: 36415; 80053; 83735; 85025

== ENCOUNTER 2024-09-03 10:42 | Inpatient (IN) | payer MEDICARE, SELFPAY ==
--- NOTE | ~2024-09-03 | XR_ITS ---
EXAMINATION: XR CHEST CLINICAL INFORMATION: shortness of breath COMPARISON: X-ray dated July 01, 2024 TECHNIQUE: 2 views of the chest were obtained. FINDINGS: Opacity in the mid to lower left hemithorax with a meniscal shaped. Opacity right lower hemithorax and blunting of the costophrenic angle. Prominence of the interstitial markings with indistinct margins in the perihilar regions. No pneumothorax. Left sided pacemaker with 2 intact electrode leads in the right heart chambers and the coronary sinus. Calcified plaque thoracic aorta. Osteopenia versus lytic process. Multilevel spondylosis. XR/XR chest 2V IMPRESSION: Pulmonary edema and bilateral pleural effusions, left greater than the right side. Consider cardiogenic. Electronically signed by: Angel Gonzalez MD 09/03/2024 01:26 PM [facility]
--- OUTSIDE RECORDS SUMMARY | 2024-09-03 10:50 | XMS_ITS ---
Author Organization [facility] Address [address] [place] [address] Care Team Providers Care Cashier Gambling Name Role Phone Jose Manuel Escalera MD Primary Care Provider Unavaila Brandon Tse Unavailable [phone] Encounters Encounter Location Date Provider Diagnosis [address] [address] 02/24/2024 Brandon Lozano Plan Of Treatment No Information Progress Notes * Aaron VALVERDEDOB:1950 (74 yo M)Acc No.[id number]:02/24/2024 Progress Note Patient:?Aaron VALVERDE Provider:?Brandon Lozano DPM :1950???Age:73 Y???Sex:Male Sulaiman e:02/24/2024 Address:[address] [place], [place] [id number] Pcp:Jose Manuel Escalera MD Subjective: * Chief Complaints: * ??? * Medical History:? Objective: * Vitals:? Assessment: Plan: * Treatment: * Images: * The named appointment provid er may or may not be the originator of this progress note, and it is not deemed complete until electronically signed by the appointment provider. Sign off status: Pending * Provider:?Brandon Lozano DPM Date:?2023 Generated for Laura moser/Scarlett/eTransmitting on:?09/03/2024 10:50 AM EST
--- OUTSIDE RECORDS SUMMARY | 2024-09-03 10:50 | XMS_ITS ---
Author Organization [facility] Address [address] [place] [address] Care Team Providers Care Peanut Vendor Name Role Phone Jose Manuel Escalera MD Primary Care Provider Unavaila Brandon Tse Unavailable [phone] REASON FOR VISIT cx 02/23 Encounters Encounter Location Date Provider Diagnosis [facility] [address] [place] [address] 02/23/2024 Brandon Lozano Plan Of Treatment No Information Progress Notes * CHAPITOJose AaronDOB:1950 (73 yo M)Acc No.[id number]:02/23/2024 Patient:?Aaron Valverde :1950???Age:73 Y???Sex:Male Address:[address] [place] [address], [address] * true * Date:? Generated for Handyi shanti/Scarlett/eTransmitting on:?09/03/2024 10:50 AM EST
--- OUTSIDE RECORDS SUMMARY | 2024-09-03 10:51 | XMS_ITS | Patient Health Record ---
Author Organization [facility] Matilde jes Pancho Address [address] [place] [address] Care Team Providers Care Developer Prover Upholstering Name Role Phone Jose Manuel Escalera MD Primary Care Provider Brandon Stokes Unavailable [phone] Allergies No Known Allergies Reason For Referral No Information Medications Medication SIG (Take, Route, Frequency, Duration) Notes Start Date End Date Status Metoprolol Tartrate 50 MG 1 tablet with food Orally Twice a day for 30 day(s) Active Furosemide 20 MG 1 tablet Orally Once a day for 30 day(s) Active Lisinopril 10 MG 1 tablet Orally Once a day for 30 day(s) Active Warfarin Sodium 5 MG 1 tablet Orally Onc e a day for 30 day(s) Active amLODIPine Besylate 5 MG 1 tablet Orally Once a day for 30 day(s) Active Atorvastatin Calcium 10 MG 1 tablet Oral ly Once a day for 30 day(s) Active Ammonium Lactate 12 % 1 application Exte rnally Twice a day for 30 days Active Immunizations Vaccine Route Administration Date Status Comme nts COVID-19 Moderna Vaccine Unknown 07/01/2021 Administered 1st 11/29/20 2nd 12/27/20 Social History Tobacco Use: Social History Observation Description Date Details (start date - stop date) Current Smoker 01/31/1971 - NA Tobacco Use/Smoking Question Answer Notes Are you a: current smoker When did you start smoking? 01/31/1971 How often do you smoke cigarettes? every day How many cigarettes a day do you smoke? 11-20 Additional Findings: Tobacco User Modera te cigarette smoker (10-19 cigs/day) Alcohol Screen Question Answer Notes Did you have a drink containing alcohol in the p ast year? No Points 0 Interpretation Negative Tobacco use other than smoking: Question Answer Notes Are you an other tobacco user? No Problems Problem Type SNOMED Code ICD Code Onset Dates Problem Status W/U Status Risk Notes Problem Atherosclerosis of [place] arteries of the extremities ([id number]) Atherosclerosis of [place] artery of both lower extremities, with unspecified presence of clinical manifestation (I70.203) Active confirmed Vital Signs Height 5 ft 10 in in 11/25/2023 Weight 285 lbs 11/25/2023 BMI 40.89 kg/m2 11/25/2023 Procedures Procedure Date Ordered Date Performed Result Body Sit e 95299-BZCEXHE NAIL, 6 OR MORE 11/25/2023 N/A 99841-Eqswduoe Plate 11/25/2023 N/A 37396-OOSJ SKIN LESIONS, OVER 4 11/25/2023 N/A Encounters Encounter Location Date Provider Diagnosis [facility] [address] [address] 11/25/2023 Brandon Lozano Atherosclerosis of [place] artery of both lower extremities, with unspecified presence of clinical manifestation I70.203 ; Tinea unguium B35.1 ; Pain in right toe(s) M79.674 ; Pain in left toe(s) M79.675 ; Ingrowing nail L60.0 and [facility]osis [facility]85.[facility] [address] 02/23/[facility]24 Brandon Lozano Assessments Encounter Date Diagnosis (ICD Code) Assessment Notes Treatment Notes Treatment Clinical Notes Section Notes 11/25/2023 Tinea unguium (ICD-10 - B35.1) 11/25/2023 Atherosclerosis of [place] artery of both lower extremities, with unspecified presence of clinical manifestation (ICD-10 - I70.203) 11/25/2023 Pain in right toe(s) (ICD-10 - M79.674) 11/25/2023 Pain in left toe(s) (ICD-10 - M79.675) 11/25/2023 Ingrowing nail (ICD-10 - L60.0) 11/25/2023 Xerosis of skin (ICD-10 - L85.3) Plan Of Treatment Pending Test Test Name Order Date 63335-HNWWPDT NAIL, 6 OR MORE 02/13/2021 48630-VIXFBEV NAIL, 6 OR MORE 05/29/2021 68810-GVSBAXI NAIL, 6 OR MORE 12/04/2021 14425-GMRUTHP NAIL, 6 OR MORE 04/05/2022 95203-SIYYMSZ NAIL, 6 OR MORE 11/25/2023 60252-Himjyfmh Plate 11/25/2023 39275-Rdakkcux Plate 04/05/2022 52195-Mzzpcvsg Plate 05/29/2021 48933-QUID SKIN LESIONS, OVER 4 05/29/20 21 51278-OOMO SKIN LESIONS, OVER 4 04/05/20 22 18195-GVED SKIN LESIONS, OVER 4 12/05/19 22 76590-YDTX SKIN LESIONS, OVER 4 11/25/19 24 48534-XXLV SKIN LESIONS, 2 TO 4 02/14/20 21 Insurance Providers Payer Name Payer Address Payer Phone Subscriber Number Group Number Insured Name Patient Relationship to Insured Coverage Start Date Coverage End Date [employer] [place] [employer]vantage [facility] [address] [place] [address] [id number] Aaron Valverde Self - patient is the insured Medical (General) History Medical History History ICD Code Back,Hip,and Knee pain Dementia High blood pressure Stroke Measles Mumps Chicken pox CAD Surgical History Surgery Date(Month/Year) [place] History Reason Date[place] [facility] [place]
--- OUTSIDE RECORDS SUMMARY | 2024-09-03 10:51 | XMS_ITS ---
Author Organization [facility] Matilde jes Spade Address [address] [place] [address] Care Team Providers Care Study Manager Name Role Phone Jose Manuel Escalera MD Primary Care Provider Chelaa Brandon Tse Unavailable [phone] Allergies No Known Allergies REASON FOR VISIT At Risk Footcare, Painful Nail(s) aggrevated by shoes and causing difficulty standing/walking., Ingrown Nail, Skin problem(s) Medications Medication SIG (Take, Route, Frequency, Duration) Notes Start Date End Date Status Metoprolol Tartrate 50 MG 1 tablet with food Orally Twice a day for 30 day(s) Active Warfarin [...] Twice a day for 30 days Active Furosemide 20 MG 1 tablet Orally Once a day for 30 day(s) Active Lisinopril 10 MG 1 tablet Orally Once a day for 30 day(s) Active Social History Tobacco Use: Social History Observation [...] Are you an other tobacco user? No Vital Signs Height 5 ft 10 in in 11/25/2023 Weight 285 lbs 11/25/2023 BMI 40.89 kg/m2 11/25/2023 Procedures Procedure Date Ordered Date Performed Result Body Sit e 85441-EAJKZMX NAIL, 6 OR MORE 11/25/2023 N/A 01638-Znucyxht Plate 11/25/2023 N/A 56825-BYYC SKIN LESIONS, OVER 4 11/25/2023 N/A Encounters Encounter Location Date Provider Diagnosis [facility] [place] [address] [place] [address] 11/25/2023 Brandon Alonsounier Atherosclerosis of unga artery of both lower extremities, with unspecified presence of clinical manifestation I70.203 ; Tinea unguium B35.1 ; Pain in right toe(s) M79.674 ; Pain in left toe(s) M79.675 ; Ingrowing nail L60.0 and Xerosis of skin L85.3 Assessments Encounter Date Diagnosis (ICD Code) Assessment Notes Treatment Notes Treatment Clinical Notes Section Notes 11/25/2023 Atherosclerosis of unga artery of both lower extremities, with unspecified presence of clinical manifestation (ICD-10 - I70.203) 11/25/2023 Tinea unguium (ICD-10 - B35.1) 11/25/2023 Pain in right toe(s) (ICD-10 - M79.674) 11/25/2023 Pain in left toe(s) (ICD-10 - M79.675) 11/25/2023 Ingrowing nail (ICD-10 - L60.0) 11/25/2023 Xerosis of skin (ICD-10 - L85.3) Plan Of Treatment Medication Medication Name Sig Start Date Stop Date Notes Ammonium Lactate 12 % 1 application Exte rnally Twice a day for 30 days Pending Test Test Name Order Date 92904-AXTXQWX NAIL, 6 OR MORE 11/25/2023 72224-Xnxgoyxf Plate 11/25/2023 59796-RMMX SKIN LESIONS, OVER 4 11/25/19 24 Next Appt Details Follow Up: prn, Reason: Procedure Notes * Category Sub-Category Detail Notes Nail Avulsion Procedure A fine sterile e levator was placed between the eponychium, nail fold, and nail plate to separate the the structures. A sterile nail splitter, and/or sterile #316 blade, was then used to longitudinally section the nail along its entire length through the eponychium to the area under the nail fold. The offending portion of nail was from the nail bed with a rolling action and then removed with a hemostat. No underlying bone was identified. A bacitracin sterile dressing was applied. Local wound aftercare instructions were discussed and dispensed. The patient was informed of both conservative and future surgical procedures to prevent recurrence (33594), CIRCULATION: Pt was advised as to the risk of delayed or nonhealing due to circulation. Pt is to call the office with any questions, concerns, or complications Anesthesia 2cc of 1 percent Lid ocaine Plain local anesthesic utilizing aseptic technique Location Medial nail border, T5 Debride Nail 6-10 Nail debridement Nail debridem ent performed extensively to reduce/remove overall nail length, girth, thickness, subungual debris, and necrotic tissue, by manual and electrical means through the use of a nail nipper and/or dremel, to more viable healthy nail plate or bed tissue 1-5. Silver nitrate used for any petechial bleeding as necessary. Patient chooses, no pharmaceutical tx (02320) Keratoma Treatment Parring or Cutting o f Benign Hyperkeratotic Lesion(s) 78396 ( >4 Lesions) - The Benign hyperkeratotic lesions, as described above were pared, and/or cut utilizing a sterile #15 blade, tissue nippers, and/or dremel, Q8 Progress Notes * Aaron VALVERDEDOB:1950 (73 yo M)Acc No.[id number]:11/25/2023 Progress Note Patient:?Aaron Valverde Provider:?Brandon Lozano DPM :1950???Age:73 Y???Sex:Male Sulaiman e:11/25/2023 Address:[address] [place] [address] Pcp:Jose Manuel Escalera MD Subjective: * Chief Complaints: * ???At Risk FootcarePainful N ail(s) aggrevated by shoes and causing difficulty standing/walking.Ingrown NailSkin problem(s) * HPI: ???At Risk footcare:?Pt States Last PCP Visit:?Date?10/07/2023 ???Skin problems:?Nature:?dryness , scaling.?Location:?B/L .?Duration:?several days.?Course:?worse.? * ROS:?General/Constitutional:?Nausea?denies.?Vomiting?denies.?Hunger Thirst?denies.?Loss appetite?denies.?Chills?denies.?Fatigue?denies.?Fever?denies.?Night Sweats?denies.?Unexplained weight loss?denies.?Unexplained weight gain?denies.?HEENTM:?Dentures?denies.?Dizziness?denies.?Glasses/contacts?admits.?Retinopathy?de nies.?Blurred/double vision?denies.?TMJ?denies.?Discharge/drainage?denies.?Implants?denies.?Sore throat?denies.?Dental implants?denies.?Hard of hearing ?denies.?Difficulty chewing/swallowing/speaking?denies.?Nose bleeds?denies.?Sore mouth?denies.?Respiratory:?On Oxygen?denies.?Pneumonia/pleurisy?denies.?Bronchitis?denies.?Emphysema?denies.?C oughing?denies.?Cough blood?denies.?Shortness of breath?denies.?Wheezing?denies.?Cardiovascular:?Pacemaker?denies.?MVP?denies.?WPW?denies.?CHF?denies.?Heart attack?denies.?Septal defect?denies.?Rapid beat?denies.?Chest pain ?denies.?Atrial Fib.?denies.?Murmur/Palpitations?denies.?Gastrointestinal:?Hemorrhoids?denies.?Stomach/Abdominal pain?denies.?Dark blood stool?denies.?Irritable bowel ?denies.?Constipation?denies.?Diarrhea?denies.?Hematology:?Swelling?admits.?Clots?denies.?Varicose Veins?denies.?Bruising?admits, on anticoagulants.?Bleeding problem?admits, on anticoagulants.?Genitourinary:?Blood urine?denies.?Frequent/Painfu/urination/bladder control?denies.?Kidney stones?denies.?Infection (UTI)?denies.?Nephropathy?denies.?sex trans dis (STD)?denies.?Prostate?denies.?Musculoskeletal:?Hammertoes?denies.?Bunions?denies.?Back Pain?denies.?Muscle Cramps/ Resting?denies.?Muscle cramps / walking?denies.?Generalized aches and pains?denies.?Weakness?denies.?Integ.:?Toro?denies.?Scars?denies.?Corns/calluses?admits.?Ingrown nails?admits.?Painful nails?admits.?Open Sores?denies.?Rashes?denies.?Neurologic:?Difficulty sleeping?denies.?Brain disorder?denies.?Numbness?denies.?Balance trouble?denies.?Confusion?denies.?Fainting/blackouts?denies.?Tingling?denies.?Tr emors?denies.? * Medical History:? * Surgical History:?Denies Pas t Surgical History * [place]Major Diagno stic [place] [place] [facility] [place] * Family History:?Mother: dece ased.?Father: .? * Social History:?Tobacco Use:?Tobacco Use/Smoking?Are you a:?current smoker ?When did you start smoking??01/31/1971 ?How often do you smoke cigarettes??every day ?How many cigarettes a day do you smoke??11-20 ?Additional Findings: Tobacco User?Moderate cigarette smoker (10-19 cigs/day) ?Tobacco use other than smoking?Are you an other tobacco user??No ???Drugs/Alcohol:?Drugs?Have you used drugs other than those for medical reasons in the past 12 months??No ?Alcohol Screen?Did you have a drink containing alcohol in the past year??No ?Points?0 ?Interpretation?Negative ???Miscellaneous:?Caffeine: yes, 1-2 cups per day coffee. ?Children: yes. ?no Exercise. ?Marital status: . ?Occupation: Retired. * Medications:?TakingamLODIPin e Besylate 5 MG Tablet 1 tablet Orally Once a dayAtorvastatin Calcium 10 MG Tablet 1 tablet Orally Once a dayFurosemide 20 MG Tablet 1 tablet Orally Once a dayLisinopril 10 MG Tablet 1 tablet Orally Once a dayMetoprolol Tartrate 50 MG Tablet 1 tablet with food Orally Twice a dayWarfarin Sodium 5 MG Tablet 1 tablet Orally Once a dayMedication List reviewed and reconciled with the patientTaking amLODIPine Besylate 5 MG Tablet 1 tablet Orally Once a dayTaking Atorvastatin Calcium 10 MG Tablet 1 tablet Orally Once a dayTaking Furosemide 20 MG Tablet 1 tablet Orally Once a dayTaking Lisinopril 10 MG Tablet 1 tablet Orally Once a dayTaking Metoprolol Tartrate 50 MG Tablet 1 tablet with food Orally Twice a dayTaking Warfarin Sodium 5 MG Tablet 1 tablet Orally Once a dayMedication List reviewed and reconciled with the patient * Allergies:?N.K.D.A.yes[Aller gies Verified] Objective: * Vitals:?Ht: 5 ft 10 in, Wt:2 85, BMI:40.89, Shoe size:11. * Examination: ???Vascular: ?DP PULSES:? 0/4, B/L.?PT PULSES:? 0/4, B/L.?CAPILLARY FILL TIME:? delayed, all digits, B/L.?SKIN TEMPERTURE GRADIENT OF THE LOWER EXTERMITIES:? decreased, cool to cool, proximal to distal, B/L.?HAIR GROWTH/TEXTURE/ELASTICITY/TURGOR:? decreased, B/L.?PIGMENTATION:? mottled, B/L.?EDEMA:? 2/4, non-pitting, without aching pain, B/L, Leg(s), Ankle(s), Feet.?CLAUDICATION:?denies, B/L.?REST PAIN:?denies, B/L.?Nails: ?NAILS are:? Elongated, overgrown, dystrophic, lytic, greater than 3mm thick, discolored and friable with crumbly malodorous subungual debris, with pain on palpation, T1, T2, T3, T4, T5, T6, T7, T9.?Ingrown Nail: ?INSPECTION:?Reveals nail incurvation, pain on palpation, groove hypertrophy, Medial nail border, T5.?Dermatologic: ?SKIN FINDINGS:?Skin exam reveals Keratotic lesion(s) located at, Medial, IPJ, T5, SUB MTH (s), 1, B/L , Heel(s), B/L , Skin shows sign(s) of, dryness, scaling, in a stocking fashion, no fissure(s) present, B/L.? Assessment: * Assessment: 1.?Tinea unguium - B35.1?2.? Atherosclerosis of unga artery of both lower extremities, with unspecified presence of clinical manifestation - I70.203 (Primary)?3.?Pain in right toe(s) - M79.674?4.?Pain in left toe(s) - M79.675?5.?Ingrowing nail - L60.0, Medial nail border, T5?6.?Xerosis of skin - L85.3, Acute problem, Uncomplicated (3),Rx Management (4)? Plan: * Treatment: 2.?Tinea unguium?Procedure: 33391-ZZYOSGU NAIL, 6 OR MORE 3.?Ingrowing nail?Procedure: 03854-Iziqrgio Plate 4.?Xerosis of skin? Start Ammonium Lactate Cream, 12 %, 1 application, Externally, Twice a day, 30 days, 60, Refills 2.?? * Procedures:?Debride Nail 6-10:?Nail debridement?Nail debridement performed extensively to reduce/remove overall nail length, girth, thickness, subungual debris, and necrotic tissue, by manual and electrical means through the use of a nail nipper and/or dremel, to more viable healthy nail plate or bed tissue 1-5. Silver nitrate used for any petechial bleeding as necessary. Patient chooses, no pharmaceutical tx (29340).?Keratoma Treatment:?Parring or Cutting of Benign Hyperkeratotic Lesion(s)?91345 ( >4 Lesions) - The Benign hyperkeratotic lesions, as described above were pared, and/or cut utilizing a sterile #15 blade, tissue nippers, and/or dremel, Q8.?Nail Avulsion:?Location?Medial nail border, T5.?Anesthesia?2cc of 1 percent Lidocaine Plain local anesthesic utilizing aseptic technique.?Procedure?A fine sterile elevator was placed between the eponychium, nail fold, and nail plate to separate the the structures. A sterile nail splitter, and/or sterile #316 blade, was then used to longitudinally section the nail along its entire length through the eponychium to the area under the nail fold. The offending portion of nail was from the nail bed with a rolling action and then removed with a hemostat. No underlying bone was identified. A bacitracin sterile dressing was applied. Local wound aftercare instructions were discussed and dispensed. The patient was informed of both conservative and future surgical procedures to prevent recurrence (73338), CIRCULATION: Pt was advised as to the risk of delayed or nonhealing due to circulation. Pt is to call the office with any questions, concerns, or complications.? * Procedure Codes:?53706 DEBRI DE NAIL, 6 OR MORE, Modifiers: XS 38344 Avulsion Plate, Modifiers: XS , [id number] TRIM SKIN LESIONS, OVER 4, Modifiers: XS , Q8 * Preventive Medicine:? ??Counseling:?Discussion:?-13: Office or other outpatient visit for the evaluation and management of an established patient, which required a medically appropriate history and/or examination and LOW level of DECISION MAKING for: 1 STABLE ACUTE UNCOMPLICATED PROBLEM, 2 OR MORE MINOR PROBLEMS, OR 1 STABLE CHRONIC PROBLEM, THAT POSE(S) A LOW RISK FOR MORBIDITY/MORTALITY. The visit on the day of the encounter encompassed interpreting the data and educating the patient as to the nature of their condition, treatment options available according to their individual PMH, meds, allergies, and overall health/living conditions, as well as any potential risks or complications that may occur from a failure to adhere to, and participate in, the recommended course of therapy. The discussion included a complete verbal, and/or written explanation of the examination results, any x-rays taken, the proposed diagnosis, and outline of the treatment plan. A schedule for future care needs was also explained. The patient verbalized an understanding of the instructions at this time and agreed to be an active participant in their treatment. If the patient should think of any questions or concerns after the visit, I have encouraged the patient to call the office.?Xerosis:?The patient was counseled on the diagnosis, potential etiologies, and treatment options for their skin condition. We discussed the risks and benefits of each option from performing no treatment, to utilizing OTC topical skin creams/ointments, to utilizing prescription topical creams/ointments, to utilizing customized compounded topical medications and use of nocturnal occlusion with any/all previously detailed therapies. We discussed the advantages and disadvantages of each possible treatment and importance for adherence to all the recommended therapies for optimum success and avoid potential complications such as open sore/infection/possible hospitalization. We discussed the potential effectiveness of each topical preparation as well as each ones possible side effects and/or patient medication interactions. Patient questions re: use, dosage, successful outcomes, and application consistency were reviewed and the patient verbalized that all answers were clearly understood. The patient has decided to apply Rx skin creams to their feet save the interspaces while paying special attention to the heels. Such was sent to their pharmacy at the time of visit.? * Follow Up:?prn * Images: * Sign off status: Completed true * Provider:?Brandon Lozano DPM Date:?2023 Generated for Laura moser/Scarlett/Yovana on:?09/03/2024 10:50 AM EST History and Physical Notes * HPI (History of Present Illness) Category Sub-Category Detail Notes Category Not es Skin problems Nature: dryness , scaling Location: B/L Duration: several days Course: worse At Risk footcare Pt States Last PCP Visit: Date: Examination Category Sub-Category Detail Notes Category Not es Ingrown Nail INSPECTION: Reveals nail inc urvation, pain on palpation, groove hypertrophy, Medial nail border, T5 Dermatologic SKIN FINDINGS: Skin exam reveal s Keratotic lesion(s) located at, Medial, IPJ, T5, SUB MTH (s), 1, B/L , Heel(s), B/L , Skin shows sign(s) of, dryness, scaling, in a stocking fashion, no fissure(s) present, B/L Vascular DP PULSES(B): 0/4, B/L PT PULSES(B): 0/4, B/L CAPILLARY FILL TIME: delayed, all digits , B/L TEMPERTURE GRADIENT(C): decreased, cool to cool, proximal to distal, B/L TROPHIC CONDITION-TEXTURE/ELASTICITY/TURGOR/HAIR GROWTH(B): decreased, B/L EDEMA(C): 2/4, non-pitting, wi thout aching pain, B/L, Leg(s), Ankle(s), Feet CLAUDICATION(C): denies, B/L REST PAIN: denies, B/L PIGMENTATION: mottled, B/L Nails NAILS are: Elongated, overg rown, dystrophic, lytic, greater than 3mm thick, discolored and friable with crumbly malodorous subungual debris, with pain on palpation, T1, T2, T3, T4, T5, T6, T7, T9
[2024-09-03 11:15] VITALS: BP 168/89; PULSE 86; RESP 18; TEMP 36.6; O2SAT 96; BMI 39.1
--- NOTE | 2024-09-03 11:16 | ED.GENADULT ---
HPI - General Adult General Chief complaint: Dyspnea Stated complaint: diff breathing Time Seen by Provider: 09/03/24 15:42 Source: patient Mode of arrival: ambulatory Limitations: no limitations History of Present Illness ED Provider: Iva Kearns NP HPI narrative: Patient is a 74-year-old male with past medical history of CAD, history of VFib cardiac arrest, ICD, atrial fibrillation on Eliquis, STEMI, ischemic cardiomyopathy, congestive heart failure with reduced EF, hypertension, COPD, CKD who presents to the emergency department for evaluation of difficulty breathing since yesterday. Admits to a history of heart failure, and feels that his current symptoms are similar to a most recent admission a few months ago. Reports he was able to sleep last night but he did have about 3 pillows beneath him. He reports significant dyspnea on exertion. Denies PND. States he has been compliant with his Lasix 40 mg daily. He denies any recent sick contacts. Denies trauma, fevers, chills, URI symptoms, sore throat, difficulty swallowing, neck pain, chest pain, palpitations, cough, nausea, vomiting, abdominal pain, numbness or tingling of the extremities, recent lower extremity pain or swelling. Denies alcohol use, recreational drugs, or smoking tobacco. Related Data Home Medications ?Medication ?Instructions ?Recorded ?Confirmed acetaminophen 325 mg tablet 650 mg PO BEDTIME PRN Elevated 04/19/24 07/01/24 Temps atorvastatin 40 mg tablet 40 mg PO BEDTIME 04/19/24 07/01/24 clopidogrel 75 mg tablet 75 mg PO DAILY@0900 04/19/24 07/01/24 famotidine 20 mg tablet 20 mg PO DAILY 04/19/24 07/01/24 melatonin 3 mg tablet 3 mg PO BEDTIME PRN Insomnia 04/19/24 07/01/24 amiodarone 200 mg tablet 200 mg PO DAILY 07/01/24 07/01/24 Previous Rx's ?Medication ?Instructions ?Recorded apixaban 5 mg tablet (Eliquis) 5 mg PO BID #20 tabs 04/22/24 carvedilol 3.125 mg tablet 6.25 mg PO BID #60 tabs 07/03/24 furosemide 40 mg tablet (Lasix) 40 mg PO DAILY #30 tabs 07/03/24 hydralazine 25 mg tablet 50 mg (2 x 25 mg) PO BID #120 tabs 07/03/24 isosorbide dinitrate 5 mg tablet 5 mg PO BID #60 tabs 07/03/24 Allergies Allergy/AdvReac Type Severity Reaction Status Date / Time No Known Allergies Allergy Verified 09/03/24 11:18 [No Known Allergies*] Review of Systems Review of Systems: Yes all other systems are reviewed and are negative PMFSH Past Medical History Attestation statement: The following information was validated with the patient. Source: old records reviewed Medical History Biventricular ICD (implantable cardioverter-defibrillator) in place Paroxysmal atrial flutter Atrial flutter Coronary artery disease History of cardiac arrest Complete heart block Ventilator associated pneumonia STEMI (ST elevation myocardial infarction) Ischemic cardiomyopathy Hypertension Hx of [facility] use of blood thinners COPD (chronic obstructive pulmonary disease) Surgical History S/P ICD (internal cardiac defibrillator) procedure Social History Social History Household Members: Spouse Housing: House Do you presently have visiting nurse or other home services: No Patient Tobacco Use Status: Tobacco use Unknown Advance Directives: No Advance Directives Information Provided: Yes Do you have a plan to hurt others: No Plan service: No Physical Exam ED Vital Signs: Vital Signs - 24 hr 09/03/24 11:15 09/03/24 16:48 Temperature 97.9 F 97.8 F Pulse Rate 86 82 Respiratory Rate 18 18 Blood Pressure 168/89 H 167/68 H Pulse Oximetry 96 94 Oxygen Delivery Method Room Air Room Air BMI result Body Mass Index 39.1 Appearance: Alert.?Oriented to person, place and time. No acute distress.?Normal affect. Eyes: Pupils equal, round and reactive to light.? ENT: Pharynx normal.?? Neck: Normal inspection.? Neck supple.?? CVS: Heart sounds normal. Normal heart rate and rhythm.? Pulses normal.?? Respiratory: No respiratory distress.? Lung sounds with rales bilaterally. Abdomen: Soft and non-tender. Normoactive bowel sounds. Skin: Skin warm and dry.? Normal skin color.? Extremities: 2+ pitting bilateral lower extremity edema.? No calf ttp? Neuro: Moves all extremities spontaneously. Sensation intact bilaterally. No focal neuro deficits. Ambulates with normal steady gait. Course Course Course Narrative: RME, this is a rapid medical exam performed by Maxim Sewell please refer to primary provider for complete H&P- 74-year-old male past medical history significant for coronary artery disease, AICD implantation, AFib on Eliquis, COPD presents for evaluation of shortness of breath over the last 2 days. He denies any increased leg swelling from baseline. He does have a history of CHF as well. Denies any fevers, chills. Plan for labs, viral swabs, chest x-ray, EKG Medications Administered Discontinued Medications Generic Name Dose Route Start Last Admin Trade Name Freq PRN Reason Stop Dose Admin Furosemide 40 mg 09/03/24 16:57 09/03/24 18:26 Furosemide 40 Mg/4 Ml Vial IVPUSH 09/03/24 16:58 40 mg ONCE ONE Administration Protocol Medical Decision Making Medical Decision Making MDM Narrative: Patient is a 74-year-old male with past medical history of CAD, history of VFib cardiac arrest, ICD, atrial fibrillation on Eliquis, STEMI, ischemic cardiomyopathy, congestive heart failure with reduced EF, hypertension, COPD, CKD who presents to the emergency department for evaluation of difficulty breathing since yesterday. Reports compliance with his diuretics as well as his inhalers. Overall well-appearing, nontoxic, afebrile, no respiratory distress while at rest, though is notably dyspneic on exertion, rales throughout on auscultation concerning for CHF exacerbation. He is anticoagulated on Eliquis, lower suspicion for VTE. Denies chest pain, lower suspicion for ACS. No rash or lesions, urticaria, or evidence of angioedema to suggest allergic reaction/anaphylaxis. No swallowing difficulties to suggest aspiration. No recent trauma or injury, no tracheal deviation, unlikely tension pneumothorax. No recent URI symptoms to suggest viral illness, or pneumonia. No acute bleeding or known anemia, no associated dizziness fatigue or chest pain to suggest acute anemia. Differential Diagnosis Differential Diagnoses: The differential diagnosis associated with the presentation includes (See narrative above) Admission/Observation Consideration of admission/observation: Escalation of care including admission/observation considered (See narrative above and course narrative for further detail) Lab Data MDM Lab Attestation statement: I reviewed the patient's lab results. CBC is without leukocytosis, has a normocytic anemia that does not meet transfusion criteria, mild thrombocytopenia. Renal function x-ray appears improved when compared to baseline. No significant electrolyte derangement. LFTs overall unremarkable. High sensitive troponin within normal range. BNP is elevated 628 09/03/24 12:01 09/03/24 12:01 Labs: Lab Results 09/03/24 09/03/24 09/03/24 Range/Units 11:51 12:01 17:16 WBC 5.4 (4.8-10.8) X10*3/uL RBC 4.32 L (4.60-5.80) X10*6/uL Hgb 12.5 L (14.0-18.0) g/dl Hct 39.5 L (42.0-52.0) % MCV 91.4 (80.0-98.0) fL MCH 28.9 (27.0-33.0) pg MCHC 31.6 (31.0-36.0) g/dl RDW 15.4 (11.0-16.0) % Plt Count 138 L (160-400) X10*3/uL MPV 9.7 (9.4-12.4) fL Immature Gran % (Auto) 0.4 (0.0-0.4) % Neut % (Auto) 76.3 H (45-73) % Lymph % (Auto) 12.8 L (20-40) % [place] % (Auto) 8.5 (2-11) % Eos % (Auto) 1.3 (0-4) % Baso % (Auto) 0.7 (0-2) % Lymph # (Auto) 0.7 L (1.2-4.9) X10*3/uL [place] # (Auto) 0.5 (0.1-1.2) X10*3/uL Eos # (Auto) 0.1 (0.0-0.4) X10*3/uL Baso # (Auto) 0.0 (0.0-0.2) X10*3/uL Abs Immat Gran (auto) 0.02 (0.00-0.03) X10*3/uL Absolute Neuts (auto) 4.1 (2.0-8.3) x10*3/uL Absolute Nucleated RBC 0.000 (0.0-0.012) X10*3/uL Nucleated RBC % (auto) 0.0 (0.0-0.2) /100WBC PT 16.2 H (10.9-12.4) SEC INR 1.4 H (0.9-1.1) Sodium 143 (135-145) mmol/L Potassium 3.7 (3.3-5.1) mmol/L Chloride 109 H (96-108) mmol/L Carbon Dioxide 28 (22-29) mmol/L Anion Gap 10 L (12-20) BUN 28 H (9-16) mg/dL Creatinine 1.58 H (0.5-1.4) mg/dL Estim Creat Clear Calc 53.3 Estimated GFR 43 Random Glucose 96 (60-115) mg/dL Calcium 8.7 (8.4-10.2) mg/dL Total Bilirubin 0.5 (0.0-1.0) mg/dL AST 30 (5-37) U/L ALT 19 (0-40) U/L Alkaline Phosphatase 134 H (39-117) U/L Troponin I High Sens 15.5 (<3.5-35.0) ng/L B-Natriuretic Peptide 628 H (<100) pg/mL Total Protein 6.7 (6.5-8.0) g/dL Albumin 3.8 (3.5-5.0) g/dL Lipase 38 (8-78) U/L Urine Color Yellow Urine Appearance Clear Urine pH 5.5 (5.0-9.0) Ur Specific [place] 1.010 (1.005-1.025) Urine Protein Negative (Neg-Trace) mg/dL Urine Glucose (UA) Negative (Negative) mg/dL Urine Ketones Negative (Negative) mg/dL Urine Blood Negative (Negative) Urine Nitrite Negative (Negative) Ur Leukocyte Esterase Negative (Negative) Urine RBC 0-2 (0-2) /HPF Urine WBC 0-5 (0-5) /HPF Ur Squamous Epith Cells 0-2 (0-2) /HPF Urine Bacteria None Seen (None Seen) Hyaline Casts 0-2 (0-2) /LPF Influenza Type A (PCR) NEGATIVE (Negative) Influenza Type B (PCR) NEGATIVE (Negative) RSV RNA Qual (PCR) NEGATIVE (Negative) SARS-CoV-2 RNA (RT-PCR) NEGATIVE (Negative) Independent Interpretation I performed an independent interpretation of an: EKG and Plain X-Ray (Vascular congestion and Bilateral pleural effusion) Radiology Impression Discussion of test interpretation with radiology: I have reviewed the radiologist's reading. Radiologist Impression: XR/XR chest 2V IMPRESSION: Pulmonary edema and bilateral pleural effusions, left greater than the right side. Consider cardiogenic. Independent Historian Clinical information obtained from an independent historian. History obtained from or confirmed by: Spouse External Record Review External record reviewed: Outpatient record Prescription Management I considered prescription management with: Other (Furosemide) Critical Care Time Critical Care Time Critical Care Time: Yes Total Critical Care Time: 35 Attestation: I personally attest to this critical care time spent taking care of the patient exclusive of all other billable procedures was approximately 35 minutes including initial evaluation of patient, ordering tests, x-ray interpretation, EKG interpretation, IV furosemide and re-evaluation, medical consultation, documentation, re-evaluation. Discharge Plan Discharge Clinical Impression: Acute exacerbation of CHF (congestive heart failure) Patient Disposition: Admitted As Inpatient
--- NOTE | 2024-09-03 11:18 | ECG_ITS ---
Test Reason : pain Blood Pressure : / mmHG Vent. Rate : 081 BPM Atrial Rate : 081 BPM P-R Int : 140 ms QRS Dur : 126 ms QT Int : 430 ms P-R-T Axes : 010 163 028 degrees QTc Int : 499 ms Atrial-sensed ventricular-paced rhythm Abnormal ECG When compared with ECG of 01-JUL-2024 00:17, Vent. rate has decreased BY 23 BPM Referred By: Jose Sewell Electronically Signed By:SHANA MANDUJANO MD
[2024-09-03 12:08] LABS: MANUAL DIFF FLAG NO
[2024-09-03 12:11] LABS: Basophils Percent Auto 0.7 % (0-2); Eosinophils Absolute Auto 0.1 X10*3/uL (0.0-0.4); Eosinophils Percent Auto 1.3 % (0-4); Hematocrit 39.5 % (42.0-52.0); Hemoglobin 12.5 g/dl (14.0-18.0); Imm Gran Abs Auto 0.02 X10*3/uL (0.00-0.03); Imm Gran Pct Auto 0.4 % (0.0-0.4); Lymphocytes Absolute Auto 0.7 X10*3/uL (1.2-4.9); Lymphocytes Percent Auto 12.8 % (20-40); Mean Corpuscular HGB Conc 31.6 g/dl (31.0-36.0); Mean Corpuscular Hemoglobin 28.9 pg (27.0-33.0); Mean Corpuscular Volume 91.4 fL (80.0-98.0); Mean Platelet Volume 9.7 fL (9.4-12.4); Monocytes Absolute Auto 0.5 X10*3/uL (0.1-1.2); Monocytes Percent Auto 8.5 % (2-11); Neutrophils Absolute Auto 4.1 x10*3/uL (2.0-8.3); Neutrophils Percent Auto 76.3 % (45-73); Platelet Count 138 X10*3/uL (160-400); Red Blood Count 4.32 X10*6/uL (4.60-5.80); Red Cell Distribution Width 15.4 % (11.0-16.0); White Blood Count 5.4 X10*3/uL (4.8-10.8)
[2024-09-03 12:15] LABS: INTERNATIONAL NORM RATIO 1.4 (0.9-1.1); Prothrombin Time 16.2 SEC (10.9-12.4)
[2024-09-03 12:25] LABS: Alanine Aminotransferase 19 U/L (0-40); Albumin Level 3.8 g/dL (3.5-5.0); Alkaline Phosphatase 134 U/L (39-117); Anion Gap 10 (12-20); Aspartate Amino Transferase 30 U/L (5-37); Bilirubin Total 0.5 mg/dL (0.0-1.0); Blood Urea Nitrogen 28 mg/dL (9-16); Calcium 8.7 mg/dL (8.4-10.2); Carbon Dioxide 28 mmol/L (22-29); Chloride 109 mmol/L (96-108); Creatinine Clr Calc Pharmacy 53.3; Estimated Glomerular Filt Rate 43; Glucose Random 96 mg/dL (60-115); Lipase 38 U/L (8-78); Potassium 3.7 mmol/L (3.3-5.1); Sodium 143 mmol/L (135-145); Total Protein 6.7 g/dL (6.5-8.0)
[2024-09-03 12:30] LABS: B Type Natriuretic Peptide 628 pg/mL (<100); Troponin-I High Sensitivity 15.5 ng/L (<3.5-35.0)
[2024-09-03 12:47] LABS: Influenza A PCR NEGATIVE (Negative); Influenza B PCR NEGATIVE (Negative); Resp Syncy Virus RNA Qual PCR NEGATIVE (Negative); SARS COV2 PCR INHOUSE NEGATIVE (Negative)
[2024-09-03 16:48] VITALS: BP 167/68; PULSE 82; RESP 18; TEMP 36.6; O2SAT 94
[2024-09-03 17:24] LABS: Appearance Urine Clear; Color Urine Yellow; Glucose Urine UA Negative (Negative); Leukocyte Esterase Urine Negative (Negative); Nitrite Urine Negative (Negative); PH 5.5 (5.0-9.0); Urine Blood Negative (Negative); Urine Ketones Negative (Negative); Urine Protein Negative (Neg-Trace)
[2024-09-03 17:27] LABS: Bacteria Urine None Seen (None Seen); Hyaline Casts Urine 0-2 /LPF (0-2); RBC Urine 0-2 /HPF (0-2); Squamous Epithelial Cell Urine 0-2 /HPF (0-2); WBC Urine 0-5 /HPF (0-5)
--- NOTE | 2024-09-03 18:09 | P.HPHOSP_ITS ---
History of Present Illness Date of Service: 09/03/24 Chief Complaint: HEart failure exacerbation A 74 years old male with CVA, hypertension, history of VFib cardiac arrest, sCHF s\p ICD, atrial flutter on Eliquis, CKD, CAD, who presents to the hospital with worsening shortness of breath for the last day. No chest pain, palpitations, SOB, nausea, vomiting, diarrhea or urinary symptoms. reports progressive shortness of breath with increased dyspnea on exertion with elevated BNP and CXR suggestive of fluid overload and bilateral pleural effusions and vascular congestion . Started on IV lasix in the emergency. will be admitted for further work up and management. Review of Systems 2 Review of Systems: No fever, chills or weakness No chest pain, palpitation reporting shortness of breath or coughing No abdominal pain, nausea or vomiting No urinary symptoms No any rash or wounds PMFSH Medical History Biventricular ICD (implantable cardioverter-defibrillator) in place Paroxysmal atrial flutter Atrial flutter Coronary artery disease History of cardiac arrest Complete heart block Ventilator associated pneumonia STEMI (ST elevation myocardial infarction) Ischemic cardiomyopathy Hypertension Hx of intermediate use of blood thinners COPD (chronic obstructive pulmonary disease) Surgical History S/P ICD (internal cardiac defibrillator) procedure Social History Household Members: Spouse Housing: Other Do you presently have visiting nurse or other home services: No Patient Tobacco Use Status: Former Tobacco user Smoked in Last 30 Days: No Patient Interested in Nicotine Replacement: No Patient Given Instructions on How to Stop Smoking: No Second Hand Smoke Exposure: No Use of substances other than those prescribed or required for medical reasons: No Currently Displaying Signs/Symptoms of Drug Intoxication Withdrawal: No Have you been hit, kicked, punched, or otherwise hurt by someone within the past year? If so, by whom?: No Do you feel safe in your current relationship?: Yes Is there a partner from a previous relationship who is making you feel unsafe now?: No Are you made to feel afraid or neglected: No Advance Directives: No Advance Directives Information Provided: Yes Do you have a plan to hurt others: No Plan Recently lost weight without trying: Yes How much weight loss: Unsure Eating poorly because of decreased appetite: No Nutrition screen score: 4 service: No Meds Allergies Allergy/AdvReac Type Severity Reaction Status Date / Time No Known Allergies Allergy Verified 09/03/24 11:18 [No Known Allergies*] Home Medications ?Medication ?Instructions ?Recorded ?Confirmed ?Last Taken ?Type acetaminophen 325 mg tablet 650 mg PO BEDTIME PRN Elevated 04/19/24 09/03/24 Unknown History Temps atorvastatin 40 mg tablet 40 mg PO BEDTIME 04/19/24 09/03/24 09/02/24 History clopidogrel 75 mg tablet 75 mg PO DAILY@0900 04/19/24 09/03/24 09/03/24 History famotidine 20 mg tablet 20 mg PO DAILY 04/19/24 09/03/24 09/03/24 History melatonin 3 mg tablet 3 mg PO BEDTIME PRN Insomnia 04/19/24 09/03/24 06/30/24 History amiodarone 200 mg tablet 200 mg PO DAILY 07/01/24 09/03/24 09/03/24 History Physical Exam 2 Vital Signs and Narrative: Vital Signs: Last Vital Signs Temp 97.8 F 09/03/24 16:48 Pulse 82 09/03/24 16:48 Resp 18 09/03/24 16:48 BP 167/68 H 09/03/24 16:48 Pulse Ox 94 09/03/24 16:48 O2 Del Method Room Air 09/03/24 16:48 BMI result Body Mass Index 39.1 Const: Other: Constitutional : Awake, interactive, not in distress Neck : Normal inspection, Supple Cardiovascular : RRR, elevated JVP, has lower extremity edema, ICD in place Respiratory : good bilateral air entry, bilateral basal crackles, wheezes or rhonchi Gastrointestinal: soft, lax, Normal bowel sounds, Non tender Skin : Warm, Dry Neurological : Alert & oriented x3, No focal deficit Results Labs 09/04/24 06:32 09/04/24 06:32 Labs: Laboratory Results - last 24 hr 09/03/24 09/03/24 09/03/24 11:51 12:01 17:16 MCV 91.4 MCH 28.9 MCHC 31.6 RDW 15.4 Plt Count 138 L MPV 9.7 Immature Gran % (Auto) 0.4 Neut % (Auto) 76.3 H Lymph % (Auto) 12.8 L [place] % (Auto) 8.5 Eos % (Auto) 1.3 Baso % (Auto) 0.7 Lymph # (Auto) 0.7 L [place] # (Auto) 0.5 Eos # (Auto) 0.1 Baso # (Auto) 0.0 Abs Immat Gran (auto) 0.02 Absolute Neuts (auto) 4.1 Absolute Nucleated RBC 0.000 Nucleated RBC % (auto) 0.0 PT 16.2 H INR 1.4 H Anion Gap 10 L Estim Creat Clear Calc 53.3 Estimated GFR 43 Random Glucose 96 Calcium 8.7 Total Bilirubin 0.5 AST 30 ALT 19 Alkaline Phosphatase 134 H Troponin I High Sens 15.5 B-Natriuretic Peptide 628 H Total Protein 6.7 Albumin 3.8 Lipase 38 Urine Color Yellow Urine Appearance Clear Urine pH 5.5 Ur Specific [place] 1.010 Urine Protein Negative Urine Glucose (UA) Negative Urine Ketones Negative Urine Blood Negative Urine Nitrite Negative Ur Leukocyte Esterase Negative Urine RBC 0-2 Urine WBC 0-5 Ur Squamous Epith Cells 0-2 Urine Bacteria None Seen Hyaline Casts 0-2 Influenza Type A (PCR) NEGATIVE Influenza Type B (PCR) NEGATIVE RSV RNA Qual (PCR) NEGATIVE SARS-CoV-2 RNA (RT-PCR) NEGATIVE Imaging Radiologist's Impressions: Impressions Chest X-Ray 09/03/24 11:35 IMPRESSION: Pulmonary edema and bilateral pleural effusions, left greater than the right side. Consider cardiogenic. Electronically signed by: Angel Gonzalez MD 09/03/2024 01:[address] [facility] Assessment and Plan (1) Acute exacerbation of CHF (congestive heart failure): Status: Resolved Plan A 74 years old male with CVA, hypertension, history of VFib cardiac arrest, sCHF s\p ICD, atrial flutter on Eliquis, CKD, CAD, who presents to the hospital with worsening shortness of breath for the last day. Acute CHF exacerbation Elevated BNP CXR showing effusion and congestion IV lasix for now I\O Hx Atrial flutter rate controlled on amiodarone and Eliquis History of CVA/CAD Continue Plavix and high-intensity statin DVT prophylaxis: Eliquis The patient will need 2 overnight hospital stay for Heart failure exacerbation requiring IV Lasix and cardiac monitoring. Quality Stroke Does the patient have a stroke diagnosis?: No VTE Prior VTE?: No VTE Risk Level:: Medical - moderate - high VTE Device Contraindication: Treatment Not Indicated VTE Drug Contraindication: N/A - Med Ordered
[2024-09-03] MEDS: Furosemide 40 MG/4 ML VIAL IVPUSH (18:26)
[2024-09-03 18:28] VITALS: BP 183/85; PULSE 83; RESP 20; O2SAT 96
--- NOTE | 2024-09-03 19:46 | PHA.MEDREC ---
Pharmacy Consult ? Medication Reconciliation Pharmacy has completed the medication reconciliation. Spoke with patients over the phone and she was able to confirm her husbands medications. She stated he was still taking Amiodarone 200mg tab and stated he was taking it BID I asked if that was correct and not once daily now since April but she stated that's what is written down , I kept it as once daily because in claims the directions are written once daily and recent discharge packet we have from 07/03 the directions state he was taking 400mg twice daily for 10 days (end 04/30) then 200mg daily after that) and we had confirmed Amiodarone 200mg tabs once daily. In claims Metoprolol Succinate 75mg tabs was filled 08/20 for 90 days and on the discharge packet from 07/03 it was discontinued and the patients confirmed he is not taking it anymore and does not know why a new script was sent to the pharmacy. The patients confirmed he took his morning medications this morning.
[2024-09-03 20:30] VITALS: BP 156/78; PULSE 78; RESP 16; TEMP 36.7; O2SAT 96
[2024-09-03] MEDS: Apixaban 5 MG TABLET PO (20:33)
[2024-09-03] MEDS: carvediloL 6.25 MG TABLET PO (20:33)
[2024-09-03 22:37] VITALS: BP 158/80; PULSE 89; RESP 16; TEMP 36.8; O2SAT 95
[2024-09-03 23:20] VITALS: BP 150/70; PULSE 83; RESP 17; TEMP 36.5; O2SAT 93
[2024-09-04 03:20] VITALS: BP 141/77; PULSE 76; RESP 17; TEMP 36.9; O2SAT 94
[2024-09-04 07:40] VITALS: BP 159/75; PULSE 80; RESP 16; TEMP 36.3; O2SAT 95
[2024-09-04 07:44] LABS: Hematocrit 39.5 % (42.0-52.0); Hemoglobin 12.7 g/dl (14.0-18.0); Mean Corpuscular HGB Conc 32.2 g/dl (31.0-36.0); Mean Corpuscular Hemoglobin 28.9 pg (27.0-33.0); Mean Platelet Volume 9.8 fL (9.4-12.4); Platelet Count 120 X10*3/uL (160-400); Red Blood Count 4.39 X10*6/uL (4.60-5.80); Red Cell Distribution Width 15.2 % (11.0-16.0); White Blood Count 4.9 X10*3/uL (4.8-10.8)
[2024-09-04 08:04] LABS: Anion Gap 12 (12-20); Blood Urea Nitrogen 29 mg/dL (9-16); Calcium 8.7 mg/dL (8.4-10.2); Carbon Dioxide 29 mmol/L (22-29); Chloride 105 mmol/L (96-108); Creatinine Clr Calc Pharmacy 40.8; Estimated Glomerular Filt Rate 32; Glucose Random 87 mg/dL (60-115); Potassium 3.4 mmol/L (3.3-5.1); Sodium 143 mmol/L (135-145)
[2024-09-04 08:15] LABS: B Type Natriuretic Peptide 568 pg/mL (<100)
[2024-09-04] MEDS: Amiodarone HCL 200 MG TABLET PO (08:57)
[2024-09-04] MEDS: Famotidine 20 MG TABLET PO (08:57)
[2024-09-04] MEDS: Clopidogrel Bisulfate 75 MG TABLET PO (08:57)
[2024-09-04] MEDS: Isosorbide Dinitrate 5 MG TABLET PO ×2 (08:57→20:22)
[2024-09-04] MEDS: carvediloL 6.25 MG TABLET PO ×2 (08:57→20:22)
[2024-09-04] MEDS: hydrALAZINE HCl 50 MG TABLET PO ×2 (08:57→20:23)
[2024-09-04] MEDS: 0.9 % Sodium Chloride Flush 3 ML SYRINGE IVFLUSH ×3 (08:58→20:23)
[2024-09-04] MEDS: Apixaban 5 MG TABLET PO ×2 (08:58→20:22)
[2024-09-04 09:02] VITALS: BP 159/75; PULSE 80; O2SAT 95
--- NOTE | 2024-09-04 10:05 | HO.PM.IMPN ---
Subjective Subjective Date of Service: 09/04/24 Interval History: Seen and evaluated feels better still dyspneic with ambulation Creatinine worse than baseline no other events Review of Systems No fever, chills or weakness No chest pain, palpitation reporting shortness of breath or coughing No abdominal pain, nausea or vomiting No urinary symptoms No any rash or wounds Physical Exam Vital Signs: Vital Signs: Last Vital Signs Temp 97.4 F 09/04/24 07:40 Pulse 80 09/04/24 09:02 Resp 16 09/04/24 07:40 BP 159/75 H 09/04/24 09:02 Pulse Ox 95 09/04/24 09:02 O2 Del Method Room Air 09/04/24 07:40 BMI result Body Mass Index 39.1 Const: Other: Constitutional : Awake, interactive, not in distress Neck : Normal inspection, Supple Cardiovascular : RRR, elevated JVP, has lower extremity edema, ICD in place Respiratory : good bilateral air entry, bilateral basal crackles, wheezes or rhonchi Gastrointestinal: soft, lax, Normal bowel sounds, Non tender Skin : Warm, Dry Neurological : Alert & oriented x3, No focal deficit Objective Data Active Medications Acetaminophen (Acetaminophen 325 Mg Tablet) 650 mg PO Q6H PRN PRN Reason: Pain, Mild (Pain Scale 1-3), fever or headache Amiodarone HCl (Amiodarone Hcl 200 Mg Tablet) 200 mg PO DAILY [facility] [place] Last Admin: 09/04/24 08:57 Dose: 200 mg Documented By: MICHAEL Apixaban (Apixaban 5 Mg Tablet) 5 mg PO BID [facility] [place] Last Admin: 09/04/24 08:58 Dose: 5 mg Documented By: MICHAEL Atorvastatin Calcium (Atorvastatin Calcium 40 Mg Tablet) 40 mg PO BEDTIME [facility] [place] Calcium Carbonate (Calcium Carbonate 750 Mg Tab.Chew) 750 mg PO Q4H PRN PRN Reason: Heartburn Carvedilol (Carvedilol 6.25 Mg Tablet) 6.25 mg PO BID [facility] [place]; Protocol Last Admin: 09/04/24 08:57 Dose: 6.25 mg Documented By: MICHAEL Clopidogrel Bisulfate (Clopidogrel Bisulfate 75 Mg Tablet) 75 mg PO DAILY@0900 [facility] [place] Last Admin: 09/04/24 08:57 Dose: 75 mg Documented By: MICHAEL Famotidine (Famotidine 20 Mg Tablet) 20 mg PO DAILY [facility] [place] Last Admin: 09/04/24 08:57 Dose: 20 mg Documented By: MICHAEL Furosemide (Furosemide 40 Mg/4 Ml Vial) 40 mg IVPUSH BID@0900,1800 [facility] [place]; Protocol Last Admin: 09/04/24 08:58 Dose: 40 mg Documented By: MICHAEL Hydralazine HCl (Hydralazine Hcl 50 Mg Tablet) 50 mg PO BID [facility] [place]; Protocol Last Admin: 09/04/24 08:57 Dose: 50 mg Documented By: MICHAEL Isosorbide Dinitrate (Isosorbide Dinitrate 5 Mg Tablet) 5 mg PO BID [facility] [place]; Protocol Last Admin: 09/04/24 08:57 Dose: 5 mg Documented By: MICHAEL Magnesium Hydroxide (Milk Of Magnesia 30 Ml Oral.Susp) 30 ml PO DAILY PRN PRN Reason: Constipation Melatonin (Melatonin 3 Mg Tablet) 6 mg PO BEDTIME PRN PRN Reason: Insomnia Ondansetron HCl (Ondansetron Hcl 4 Mg/2 Ml Vial) 4 mg IVPUSH Q8H PRN PRN Reason: Nausea and Vomiting Sodium Chloride (0.9 % Sodium Chloride Flush 3 Ml Syringe) 3 ml IVFLUSH QSHIFT [facility] [place] Last Admin: 09/04/24 08:58 Dose: 3 ml Documented By: MICHAEL Labs 09/04/24 06:32 09/04/24 06:32 Labs: Laboratory Results - last 24 hr 09/03/24 09/03/24 09/03/24 11:51 12:01 17:16 MCV 91.4 MCH 28.9 MCHC 31.6 RDW 15.4 Plt Count 138 L MPV 9.7 Immature Gran % (Auto) 0.4 Neut % (Auto) 76.3 H Lymph % (Auto) 12.8 L [place] % (Auto) 8.5 Eos % (Auto) 1.3 Baso % (Auto) 0.7 Lymph # (Auto) 0.7 L [place] # (Auto) 0.5 Eos # (Auto) 0.1 Baso # (Auto) 0.0 Abs Immat Gran (auto) 0.02 Absolute Neuts (auto) 4.1 Absolute Nucleated RBC 0.000 Nucleated RBC % (auto) 0.0 PT 16.2 H INR 1.4 H Anion Gap 10 L Estim Creat Clear Calc 53.3 Estimated GFR 43 Random Glucose 96 Calcium 8.7 Total Bilirubin 0.5 AST 30 ALT 19 Alkaline Phosphatase 134 H Troponin I High Sens 15.5 B-Natriuretic Peptide 628 H Total Protein 6.7 Albumin 3.8 Lipase 38 Urine Color Yellow Urine Appearance Clear Urine pH 5.5 Ur Specific [place] 1.010 Urine Protein Negative Urine Glucose (UA) Negative Urine Ketones Negative Urine Blood Negative Urine Nitrite Negative Ur Leukocyte Esterase Negative Urine RBC 0-2 Urine WBC 0-5 Ur Squamous Epith Cells 0-2 Urine Bacteria None Seen Hyaline Casts 0-2 Influenza Type A (PCR) NEGATIVE Influenza Type B (PCR) NEGATIVE RSV RNA Qual (PCR) NEGATIVE SARS-CoV-2 RNA (RT-PCR) NEGATIVE 09/04/24 06:32 MCV 90.0 MCH 28.9 MCHC 32.2 RDW 15.2 Plt Count 120 L MPV 9.8 Immature Gran % (Auto) Neut % (Auto) Lymph % (Auto) [place] % (Auto) Eos % (Auto) Baso % (Auto) Lymph # (Auto) [place] # (Auto) Eos # (Auto) Baso # (Auto) Abs Immat Gran (auto) Absolute Neuts (auto) Absolute Nucleated RBC 0.000 Nucleated RBC % (auto) 0.0 PT INR Anion Gap 12 Estim Creat Clear Calc 40.8 Estimated GFR 32 Random Glucose 87 Calcium 8.7 Total Bilirubin AST ALT Alkaline Phosphatase Troponin I High Sens B-Natriuretic Peptide 568 H Total Protein Albumin Lipase Urine Color Urine Appearance Urine pH Ur Specific [place] Urine Protein Urine Glucose (UA) Urine Ketones Urine Blood Urine Nitrite Ur Leukocyte Esterase Urine RBC Urine WBC Ur Squamous Epith Cells Urine Bacteria Hyaline Casts Influenza Type A (PCR) Influenza Type B (PCR) RSV RNA Qual (PCR) SARS-CoV-2 RNA (RT-PCR) Assessment and Plan (1) Acute exacerbation of CHF (congestive heart failure): Status: Acute (2) CKD stage 3b, GFR 30-44 ml/min: Status: Acute Plan A 74 years old male with CVA, hypertension, history of VFib cardiac arrest, sCHF s\p ICD, atrial flutter on Eliquis, CKD, CAD, who presents to the hospital with worsening shortness of breath for the last day. Acute CHF exacerbation Elevated BNP CXR showing effusion and congestion continue IV lasix for now I\O Worsening CKD3n Cr up to 2 from 1.5 monitor BMP Hx Atrial flutter rate controlled on amiodarone and Eliquis History of CVA/CAD Continue Plavix and high-intensity statin Med rec pending DVT prophylaxis: Eliquis The patient will need overnight hospital stay for Heart failure exacerbation requiring IV Lasix and kidney function monitoring Quality Stroke Does the patient have a stroke diagnosis?: No VTE Prior VTE?: No VTE Risk Level:: Medical - moderate - high VTE Device Contraindication: Treatment Not Indicated VTE Drug Contraindication: N/A - Med Ordered
[2024-09-04] MEDS: Furosemide 40 MG/4 ML VIAL IVPUSH ×2 (10:41→17:26)
--- NOTE | 2024-09-04 11:08 | MHC.CM.PN ---
IMM 09/04. Pt lives at home with his who will transport him home at discharge. Pt uses a cane. Pt states his is his HCP, copy requested. PCP: Dr. Jose Manuel Escalera
[2024-09-04 11:12] VITALS: BP 121/57; PULSE 66; RESP 16; TEMP 36.6; O2SAT 94
[2024-09-04 16:00] VITALS: BP 159/78; PULSE 75; RESP 16; TEMP 36.6; O2SAT 96
[2024-09-04 17:07] VITALS: BMI 38.6
[2024-09-04 20:00] VITALS: BP 170/83; PULSE 73; RESP 16; TEMP 36.1
[2024-09-04] MEDS: Atorvastatin Calcium 40 MG TABLET PO (20:22)
[2024-09-05] VITALS: BP 119/65; PULSE 60; RESP 18; TEMP 37.3; O2SAT 94
[2024-09-05 03:56] VITALS: BP 144/69; PULSE 77; RESP 18; TEMP 36.4; O2SAT 96
[2024-09-05 07:12] VITALS: BP 148/84; PULSE 73; RESP 18; TEMP 36.6; O2SAT 93
[2024-09-05] MEDS: Clopidogrel Bisulfate 75 MG TABLET PO (08:21)
[2024-09-05] MEDS: Amiodarone HCL 200 MG TABLET PO (08:21)
[2024-09-05] MEDS: carvediloL 6.25 MG TABLET PO (08:21)
[2024-09-05] MEDS: hydrALAZINE HCl 50 MG TABLET PO (08:21)
[2024-09-05] MEDS: Apixaban 5 MG TABLET PO (08:21)
[2024-09-05] MEDS: Famotidine 20 MG TABLET PO (08:21)
[2024-09-05] MEDS: Isosorbide Dinitrate 5 MG TABLET PO (08:21)
[2024-09-05] MEDS: 0.9 % Sodium Chloride Flush 3 ML SYRINGE IVFLUSH (08:22)
[2024-09-05 08:49] LABS: Anion Gap 15 (12-20); Blood Urea Nitrogen 28 mg/dL (9-16); Calcium 8.5 mg/dL (8.4-10.2); Carbon Dioxide 29 mmol/L (22-29); Chloride 103 mmol/L (96-108); Creatinine Clr Calc Pharmacy 44.4; Estimated Glomerular Filt Rate 35; Glucose Random 92 mg/dL (60-115); Potassium 3.2 mmol/L (3.3-5.1); Sodium 144 mmol/L (135-145)
[2024-09-05] MEDS: Furosemide 40 MG/4 ML VIAL IVPUSH (08:58)
[2024-09-05 11:00] VITALS: BP 124/58; PULSE 61; RESP 18; TEMP 37; O2SAT 93
--- NOTE | 2024-09-05 12:03 | P.DS_ITS ---
DS: Providers Provider Date of Service: 09/05/24 Date of admission: 09/03/24 18:14 Date of discharge: 09/05/24 Primary care physician: Jose Manuel Escalera MD DS: Diagnosis Discharge Diagnosis (1) Acute exacerbation of CHF (congestive heart failure): Status: Resolved (2) Acute exacerbation of CHF (congestive heart failure): Status: Acute (3) CKD stage 3b, GFR 30-44 ml/min: Status: Acute DS: Summary Hospital Course Hospital Course: Admission note HPI A 74 years old male with CVA, hypertension, history of VFib cardiac arrest, sCHF s\p ICD, atrial flutter on Eliquis, CKD, CAD, who presents to the hospital with worsening shortness of breath for the last day. No chest pain, palpitations, SOB, nausea, vomiting, diarrhea or urinary symptoms. reports progressive shortness of breath with increased dyspnea on exertion with elevated BNP and CXR suggestive of fluid overload and bilateral pleural effusions and vascular congestion . Started on IV lasix in the [facility]. will be admitted for further work up and management. Hospital course The patient was admitted for treatment of Acute CHF exacerbation with Elevated BNP and CXR showing effusion and congestion of fluids treated with BID IV lasix with good response over the course of hospital stay as dyspnea and SOB resolved as he was able to participate with PT who recommended no need for PT. will be discharged on Lasix 40 mg daily and extra 20 mg PRN for weight gaining\edema. To follow with PCP as outpatient. He was noted to have mild Worsening CKD3b but stablizied at time of discharge. To repeat BMP as outpatient. Discharge plan check weight daily at home; take extra Lasix if gaining >2 lbs or worsening swelling Continue Lasix 40 mg daily Follow with PCP as outpatient for further adjustments of home medications Low salt diet monitor fluid intake Time Attestation Discharge Coordination Time (in mins): 38 Quality: Safe Use of Opioids Does Pt have an Active Cancer Diagnosis on the Problem List?: No Quality: Stroke Does the patient have a stroke diagnosis?: No Physical Exam Vital Signs: Vital Signs: Last Vital Signs Temp 98.6 F 09/05/24 11:00 Pulse 61 09/05/24 11:00 Resp 18 09/05/24 11:00 BP 124/58 L 09/05/24 11:00 Pulse Ox 93 09/05/24 11:00 O2 Del Method Room Air 09/05/24 11:00 BMI result Body Mass Index 38.6 Const: Other: Constitutional : Awake, interactive, not in distress Neck : Normal inspection, Supple Cardiovascular : RRR, no JVP, trace lower extremity edema, ICD in place Respiratory : good bilateral air entry, no crackles, wheezes or rhonchi Gastrointestinal: soft, lax, Normal bowel sounds, Non tender Skin : Warm, Dry Neurological : Alert & oriented x3, No focal deficit DS: Data Data Completed and Pending Labs on day of discharge: Laboratory Results - last 24 hr 09/05/24 08:10 Sodium 144 Potassium 3.2 L Chloride 103 Carbon Dioxide 29 Anion Gap 15 BUN 28 H Creatinine 1.88 H Estim Creat Clear Calc 44.4 Estimated GFR 35 Random Glucose 92 Calcium 8.5 Imaging Chest x-ray: Radiologist's impression: ITS Impressions Chest X-Ray 09/03/24 11:35 IMPRESSION: Pulmonary edema and bilateral pleural effusions, left greater than the right side. Consider cardiogenic. Electronically signed by: Angel Gonzalez MD 09/03/2024 01:26 PM [facility] Discharge Plan Discharge Anticipated Discharge Date/Time: 09/05/24 11:43 Patient Disposition: Home, Self-Care Discharge Diagnosis: Heart failure exacerbation Referrals: Jose Manuel Escalera MD [Primary Care Provider] - 1 Week Discharge Medications: New furosemide [Lasix] 20 mg tablet 20 mg PO DAILY@1630 PRN (Reason: edema) Qty: 90 0RF Continued amiodarone 200 mg tablet 200 mg PO DAILY Rx Instructions: 400 mg twice daily for 10 days (end 04/30) then 200 mg daily after that carvedilol 3.125 mg Tablet 6.25 mg PO BID Qty: 60 0RF Protocol: Hold for SBP/HR < HOLD for SBP < : 90 HOLD for HR < : 60 isosorbide dinitrate 5 mg Tablet 5 mg PO BID Qty: 60 0RF Protocol: Hold for SBP< HOLD for SBP < : 90 hydralazine 25 mg tablet 50 mg PO BID Qty: 120 0RF furosemide [Lasix] 40 mg tablet 40 mg PO DAILY Qty: 90 0RF atorvastatin 40 mg Tablet 40 mg PO BEDTIME acetaminophen 325 mg Tablet 650 mg PO BEDTIME MDD 3 Grams in 24 hrs PRN (Reason: Elevated Temps) melatonin 3 mg Tablet 3 mg PO BEDTIME PRN (Reason: Insomnia) clopidogrel 75 mg Tablet 75 mg PO DAILY@0900 famotidine 20 mg Tablet 20 mg PO DAILY Eliquis 5 mg Tablet 5 mg PO BID Qty: 20 0RF Discharge Orders: Discharge Order (Routine); Ordered 09/05/24 Ordered By: Rufina Murguia Diet: Low salt diet Activity on Discharge: As tolerated Stand Alone Forms: Patient Portal Discharge page Print Language: Occitan Care Plan Goals: check weight daily at home; take extra Lasix if gaining >2 lbs or worsening swelling Continue Lasix 40 mg daily Follow with PCP as outpatient for further adjustments of home medications Low salt diet monitor fluid intake Health Concerns: Heart failure exacerbation Plan of Treatment: LAsix daily Assessment: as above Patient Instructions: Heart Failure (DC)
--- NOTE | 2024-09-05 12:53 | MHC.CM.PN ---
Pt is medically cleared for discharge home self-care today, pts to transport him home.
== END 2024-09-05 14:12 | disposition home or self-care (01) | DRG 291 ==
LOC: HO.ED 16:26 → HO.EDOVER 18:59 → HO.IMC 19:42
PROVIDERS: Physician Assistant; Admitting Provider Student in an Organized Health Care Education/Training Program; Emergency Provider Emergency Medicine; PCP Internal Medicine; Visit Provider Student in an Organized Health Care Education/Training Program
DX: I13.0 Hypertensive heart and chronic kidney disease with heart failure and stage 1 through stage 4 chronic kidney disease, or unspecified chronic kidney disease (principal); I50.23 Acute on chronic systolic (congestive) heart failure; I48.92 Unspecified atrial flutter; I25.10 Atherosclerotic heart disease of native coronary artery without angina pectoris; N18.32 Chronic kidney disease, stage 3b; Z20.822 Contact with and (suspected) exposure to COVID-19; Z95.810 Presence of automatic (implantable) cardiac defibrillator; Z87.891 Personal history of nicotine dependence; Z86.74 Personal history of sudden cardiac arrest; Z79.01 Long term (current) use of anticoagulants; Z79.02 Long term (current) use of antithrombotics/antiplatelets; Z79.899 Other long term (current) drug therapy
CPT/HCPCS: 0241U; 36415; 71046; 80048; 80053; 81001; 83690; 83880; 84484; 85025; 85027; 85610; 93005; 97162; 99285; J1940

== ENCOUNTER → 2024-09-03 11:18 | Outpatient (BNV) | payer MEDICARE, SELFPAY | PROVIDERS: Admitting Provider Student in an Organized Health Care Education/Training Program; Emergency Provider Emergency Medicine; PCP Internal Medicine; Visit Provider Internal Medicine Cardiovascular Disease | DX: R94.31 Abnormal electrocardiogram [ECG] [EKG] (principal); I49.8 Other specified cardiac arrhythmias | CPT/HCPCS: 93010 ==

== ENCOUNTER → 2024-09-03 11:19 | Outpatient (BNV) | payer MEDICARE, SELFPAY | PROVIDERS: PCP Internal Medicine; Visit Provider Radiology Diagnostic Radiology | DX: J90 Pleural effusion, not elsewhere classified (principal); J81.0 Acute pulmonary edema | CPT/HCPCS: 71046 ==

== ENCOUNTER → 2024-09-03 18:14 | Outpatient (BNV) | payer MEDICARE, SELFPAY | PROVIDERS: Admitting Provider Student in an Organized Health Care Education/Training Program; Emergency Provider Emergency Medicine; PCP Internal Medicine; Visit Provider Student in an Organized Health Care Education/Training Program | DX: I50.9 Heart failure, unspecified (principal); N18.32 Chronic kidney disease, stage 3b; I48.92 Unspecified atrial flutter | CPT/HCPCS: 99223; 99232; 99239 ==

== ENCOUNTER 2024-09-11 19:22 | Inpatient (IN) | payer MEDICARE, SELFPAY ==
[2024-09-11] VITALS (7 sets, daily range): BP systolic 113–201; BP diastolic 80–122; PULSE 89–113; RESP 18–36; TEMP 36.8–37.2; O2SAT 88–99; BMI 33.2
--- NOTE | ~2024-09-11 | XR_ITS ---
EXAMINATION: XR CHEST CLINICAL INFORMATION: CHF COMPARISON: 09/03/2024 TECHNIQUE: Frontal view of the chest was obtained. FINDINGS: Diffuse Vascular opacities may reflect edema or atypical infection. Persistent left lung base consolidation and effusion. Right costophrenic angle is excluded from [id number]. Unchanged cardiomediastinal silhouette and dual-lead pacemaker device. XR/XR chest 1V IMPRESSION: Diffuse vascular opacities may reflect edema or atypical infection. Persistent left lung base consolidation and effusion. Electronically signed by: Lisa Sarabia MD 09/11/2024 08:42 PM EST
--- NOTE | 2024-09-11 19:30 | ECG_ITS ---
Test Reason : SOB Blood Pressure : / mmHG Vent. Rate : 110 BPM Atrial Rate : 110 BPM P-R Int : 180 ms QRS Dur : 130 ms QT Int : 354 ms P-R-T Axes : 048 253 068 degrees QTc Int : 479 ms Atrial-sensed ventricular-paced rhythm Abnormal ECG When compared with ECG of 03-SEP-2024 11:47, Vent. rate has increased BY 29 BPM Referred By: Li Wade Electronically Signed By:DUSTIN GARCIA
--- NOTE | 2024-09-11 19:39 | ED_ITS ---
HPI - SOB/Dyspnea General Chief Complaint: Dyspnea Stated Complaint: sob, copd exacerbation, bp*201/122 Time Seen by Provider: 09/11/24 19:24 Source: patient and EMS Mode of arrival: EMS Limitations: other History of Present Illness ED Provider: Dr. Li Wade HPI Narrative: Patient comes to the emergency room complaining of shortness of breath. According to the patient, for a few hours he has been having significant difficulty breathing. Patient was discharged from the hospital 6 days ago for a CHF exacerbation. Patient admits that he used to smoke but believes that he has never been diagnosed with COPD. Patient does not use oxygen at home. Patient denies chest pain. Related Data Home Medications ?Medication ?Instructions ?Recorded ?Confirmed acetaminophen 325 mg tablet 650 mg PO BEDTIME PRN Elevated 04/19/24 09/03/24 Temps atorvastatin 40 mg tablet 40 mg PO BEDTIME 04/19/24 09/03/24 clopidogrel 75 mg tablet 75 mg PO DAILY@0900 04/19/24 09/03/24 famotidine 20 mg tablet 20 mg PO DAILY 04/19/24 09/03/24 melatonin 3 mg tablet 3 mg PO BEDTIME PRN Insomnia 04/19/24 09/03/24 amiodarone 200 mg tablet 200 mg PO DAILY 07/01/24 09/03/24 Previous Rx's ?Medication ?Instructions ?Recorded apixaban 5 mg tablet (Eliquis) 5 mg PO BID #20 tabs 04/22/24 carvedilol 3.125 mg tablet 6.25 mg PO BID #60 tabs 07/03/24 hydralazine 25 mg tablet 50 mg (2 x 25 mg) PO BID #120 tabs 07/03/24 isosorbide dinitrate 5 mg tablet 5 mg PO BID #60 tabs 07/03/24 furosemide 20 mg tablet (Lasix) 20 mg PO DAILY@1630 PRN edema #90 09/05/24 tabs furosemide 40 mg tablet (Lasix) 40 mg PO DAILY #90 tabs 09/05/24 Allergies Allergy/AdvReac Type Severity Reaction Status Date / Time No Known Allergies Allergy Verified 09/11/24 19:35 [No Known Allergies*] Review of Systems 2 Review of Systems: Constitutional : No Weight loss, No Fever, No Chills, No Night Sweats, No Fatigue, No Malaise ENT/Mouth : No Hearing loss, No Ear Pain, No Nasal Congestion, No Sinus Pain, No Hoarseness, No sore throat, No Rhinorrhea, No Swallowing Difficulty Eyes: No Eye Pain, No Swelling, No Redness, No Foreign Body, No Discharge, No Vision Changes Cardiovascular : No Chest Pain, complaining of orthopnea, dyspnea on exertion, no palpitations Respiratory : Complaining of difficulty breathing Gastrointestinal : No Nausea, No Vomiting, No Diarrhea, No Constipation, No abdominal Pain, No Hematochezia, No Melena Genitourinary : no irregular bleeding, No Dysuria, No Urinary Frequency, No Hematuria, No Urinary Incontinence, No Urgency, No Flank Pain, No Urinary Flow Changes, No Hesitancy Musculoskeletal : No joint pain, No Myalgias, No Joint Swelling Skin : No Skin Lesions, No rash Neuro : No Weakness, No Numbness, No Paresthesias, No Loss of Consciousness, No Dizziness, No Headache Psych : No Anxiety/Panic, No Depression, No SI/HI/AH/VH, No Social Issues, Heme/Lymph: No Bruising, No Bleeding,No Lymphadenopathy Endocrine : No Polyuria, No Polydipsia, No Temperature Intolerance [facility] Past Medical History Medical History Biventricular ICD (implantable cardioverter-defibrillator) in place Paroxysmal atrial flutter Atrial flutter Coronary artery disease History of cardiac arrest Complete heart block Ventilator associated pneumonia STEMI (ST elevation myocardial infarction) Ischemic cardiomyopathy Hypertension Hx of nursing home use of blood thinners COPD (chronic obstructive pulmonary disease) Surgical History S/P ICD (internal cardiac defibrillator) procedure Social History Social History Household Members: Spouse Housing: Other Do you presently have visiting nurse or other home services: No Patient Tobacco Use Status: Former Tobacco user Smoked in Last 30 Days: No Second Hand Smoke Exposure: No Use of substances other than those prescribed or required for medical reasons: No Advance Directives: Yes Advance Directives Information Provided: No Advance Directives on File: No Do you have a plan to hurt others: No Plan service: No Physical Exam 2 Vital Signs: Vital Signs: Last Vital Signs Temp 98.9 F 12/21/24 21:58 Pulse 98 09/11/24 21:58 Resp 26 H 09/11/24 21:58 BP 181/87 H 09/11/24 21:58 Pulse Ox 99 09/11/24 21:58 O2 Del Method Nasal Cannula 09/11/24 21:58 O2 Flow Rate 6 09/11/24 21:58 Oxygen Flow Rate 4 09/11/24 19:27 BMI result Body Mass Index 33.2 Const: Other: Appearance: Alert. Oriented X3. In respiratory distress Eyes: Pupils equal, round and reactive to light. ENT: Pharynx normal. Neck: Normal inspection. Neck supple. No lymph nodes noted. No crepitus CVS: Normal heart rate and rhythm. Pulses normal. Normal S1 and S2 Respiratory: Patient is tachypneic, very uncomfortable, unable to lie down, oxygen saturation drops to 86% when he takes off his oxygen, no wheezing at this time, bilateral crackles and rales. Abdomen: Soft and nontender. No rigidity. No distention. Skin: Skin warm and dry. Normal skin color. Normal skin turgor. Extremities: No lower extremity edema. No Lacerations. No Rash Neuro: Oriented X 3. No motor deficit. No sensory deficit. Moving all extremities. No slurred speech. CN 2 through 12 grossly intact Psych: Cooperative, a bit anxious to respiratory distress Course Course Course Narrative: All of patient's labs and imaging pending. EMS gave him a nebulization treatment. No wheezing at this time. I reviewed patient's this medication, he does not have any COPD meds or inhalers, patient has not been formally diagnosed with COPD. Most likely cardiac wheezing? Patient does have +2 pitting edema bilaterally I reviewed patient's records from last admission, patient was discharged 6 days ago for a CHF exacerbation, patient had moderate left pleural effusion Patient was put on CPAP, likely CHF exacerbation. Possible viral illness. Patient is very uncomfortable breathing, we will start CPAP. Patient also anxious, received a dose of IM Ativan. Medications Administered Generic Name Dose Route Start Last Admin Trade Name Freq PRN Reason Stop Dose Admin Azithromycin 500 mg/ Sodium 250 mls @ 125 mls/hr 09/11/24 20:47 09/11/24 21:46 Chloride IV 09/11/24 22:46 125 mls/hr ONCE ONE Administration Discontinued Medications Generic Name Dose Route Start Last Admin Trade Name Viridiana PRN Reason Stop Dose Admin Ceftriaxone Sodium 1 gm 09/11/24 20:47 09/11/24 21:42 Ceftriaxone Sodium 1 Gm Vial IVPUSH 09/11/24 20:48 1 gm ONCE ONE Administration Dexamethasone Sodium Phosphate 6 mg 09/11/24 21:07 09/11/24 21:42 Dexamethasone Sod Phosphate 4 Mg/Ml Vial IVPUSH 09/11/24 21:08 6 mg ONCE ONE Administration Furosemide 40 mg 09/11/24 20:32 09/11/24 21:39 Furosemide 40 Mg/4 Ml Vial IVPUSH 09/11/24 20:33 40 mg ONCE ONE Administration Protocol Lorazepam 2 mg 09/11/24 19:45 09/11/24 20:29 Lorazepam 2 Mg/Ml Vial IM 09/11/24 19:46 Not Given STAT STA Lorazepam 1 mg 09/11/24 19:45 09/11/24 19:49 Lorazepam 2 Mg/Ml Vial IM 09/11/24 19:46 1 mg ONCE ONE Administration Medical Decision Making Medical Decision Making MDM Narrative: My interpretation of chest x-ray, mild pulmonary edema. Radiology report edema versus atypical infection, persistent lead lung base consolidation and effusion. My interpretation of labs: At baseline hematology, venous gases improved after being on CPAP for couple of hours., chemistry at baseline, BNP elevated 554, same level when he was admitted for CHF exacerbation. Patient was weaned off Ativan, now on 4 L saturating 95%. Patient states that he feels much better now, speaking in full sentences. Patient tested positive for COVID and also has mild CHF, received Lasix IV. Patient was empirically treated with azithromycin and ceftriaxone. Patient also received 6 mg of dexamethasone. Overall, patient is of CPAP, breathing comfortably. I discussed the patient with Dr. Nugent patient being admitted Differential Diagnosis Differential Diagnoses: The differential diagnosis associated with the presentation includes (CHF, pneumonia, COVID, RSV, influenza) Admission/Observation Consideration of admission/observation: Escalation of care including admission/observation considered Consult Healthcare Provider Management of the patient was discussed with: Hospitalist Lab Data MDM Lab Attestation statement: I reviewed the patient's lab results. 09/11/24 20:06 09/11/24 20:06 Labs: Lab Results 09/11/24 09/11/24 09/11/24 Range/Units 20:06 20:09 20:15 WBC 4.9 (4.8-10.8) X10*3/uL RBC 4.66 (4.60-5.80) X10*6/uL Hgb 13.8 L (14.0-18.0) g/dl Hct 42.0 (42.0-52.0) % MCV 90.1 (80.0-98.0) fL MCH 29.6 (27.0-33.0) pg MCHC 32.9 (31.0-36.0) g/dl RDW 15.4 (11.0-16.0) % Plt Count 119 L (160-400) X10*3/uL MPV 9.5 (9.4-12.4) fL Immature Gran % (Auto) 0.4 (0.0-0.4) % Neut % (Auto) 64.2 (45-73) % Lymph % (Auto) 19.9 L (20-40) % [place] % (Auto) 11.0 (2-11) % Eos % (Auto) 3.7 (0-4) % Baso % (Auto) 0.8 (0-2) % Lymph # (Auto) 1.0 L (1.2-4.9) X10*3/uL [place] # (Auto) 0.5 (0.1-1.2) X10*3/uL Eos # (Auto) 0.2 (0.0-0.4) X10*3/uL Baso # (Auto) 0.0 (0.0-0.2) X10*3/uL Abs Immat Gran (auto) 0.02 (0.00-0.03) X10*3/uL Absolute Neuts (auto) 3.2 (2.0-8.3) x10*3/uL Absolute Nucleated RBC 0.000 (0.0-0.012) X10*3/uL Nucleated RBC % (auto) 0.0 (0.0-0.2) /100WBC PT 15.8 H (10.9-12.4) SEC INR 1.4 H (0.9-1.1) VBG pH 7.30 L (7.32-7.43) VBG pCO2 58 mmHg VBG pO2 81 mmHg VBG HCO3 29 H (22-26) mmol/L VBG O2 Saturation 95.0 % VBG Base Excess 1.8 mmol/L Sodium 142 (135-145) mmol/L Potassium 3.9 D (3.3-5.1) mmol/L Chloride 107 (96-108) mmol/L Carbon Dioxide 25 (22-29) mmol/L Anion Gap 14 (12-20) BUN 24 H (9-16) mg/dL Creatinine 1.83 H (0.5-1.4) mg/dL Estim Creat Clear Calc 42.3 Estimated GFR 36 Random Glucose 141 H (60-115) mg/dL Lactic Acid 1.4 (0.5-2.0) mmol/L Calcium 8.5 (8.4-10.2) mg/dL Total Bilirubin 0.7 (0.0-1.0) mg/dL Direct Bilirubin 0.4 (0.0-0.5) mg/dL AST 36 (5-37) U/L ALT 27 (0-40) U/L Alkaline Phosphatase 161 H (39-117) U/L Troponin I High Sens 21.3 (<3.5-35.0) ng/L B-Natriuretic Peptide 554 H (<100) pg/mL Total Protein 7.3 (6.5-8.0) g/dL Albumin 4.1 (3.5-5.0) g/dL COVID-19 (JAZZY) Positive A (Negative) COVID-19 Clin Com See Note Influenza Type A (BUCKY) Negative (Negative) Influenza Type B (BUCKY) Negative (Negative) Influenza A & B Note See Note 09/11/24 Range/Units 21:47 WBC (4.8-10.8) X10*3/uL RBC (4.60-5.80) X10*6/uL Hgb (14.0-18.0) g/dl Hct (42.0-52.0) % MCV (80.0-98.0) fL MCH (27.0-33.0) pg MCHC (31.0-36.0) g/dl RDW (11.0-16.0) % Plt Count (160-400) X10*3/uL MPV (9.4-12.4) fL Immature Gran % (Auto) (0.0-0.4) % Neut % (Auto) (45-73) % Lymph % (Auto) (20-40) % [place] % (Auto) (2-11) % Eos % (Auto) (0-4) % Baso % (Auto) (0-2) % Lymph # (Auto) (1.2-4.9) X10*3/uL [place] # (Auto) (0.1-1.2) X10*3/uL Eos # (Auto) (0.0-0.4) X10*3/uL Baso # (Auto) (0.0-0.2) X10*3/uL Abs Immat Gran (auto) (0.00-0.03) X10*3/uL Absolute Neuts (auto) (2.0-8.3) x10*3/uL Absolute Nucleated RBC (0.0-0.012) X10*3/uL Nucleated RBC % (auto) (0.0-0.2) /100WBC PT (10.9-12.4) SEC INR (0.9-1.1) VBG pH 7.41 (7.32-7.43) VBG pCO2 43 mmHg VBG pO2 82 mmHg VBG HCO3 28 H (22-26) mmol/L VBG O2 Saturation 98.0 % VBG Base Excess 3.5 mmol/L Sodium (135-145) mmol/L Potassium (3.3-5.1) mmol/L Chloride (96-108) mmol/L Carbon Dioxide (22-29) mmol/L Anion Gap (12-20) BUN (9-16) mg/dL Creatinine (0.5-1.4) mg/dL Estim Creat Clear Calc Estimated GFR Random Glucose (60-115) mg/dL Lactic Acid (0.5-2.0) mmol/L Calcium (8.4-10.2) mg/dL Total Bilirubin (0.0-1.0) mg/dL Direct Bilirubin (0.0-0.5) mg/dL AST (5-37) U/L ALT (0-40) U/L Alkaline Phosphatase (39-117) U/L Troponin I High Sens (<3.5-35.0) ng/L B-Natriuretic Peptide (<100) pg/mL Total Protein (6.5-8.0) g/dL Albumin (3.5-5.0) g/dL COVID-19 (JAZZY) (Negative) COVID-19 Clin Com Influenza Type A (BUCKY) (Negative) Influenza Type B (BUCKY) (Negative) Influenza A & B Note Independent Interpretation I performed an independent interpretation of an: Plain X-Ray Radiology Impression Discussion of test interpretation with radiology: I have reviewed the radiologist's reading. Radiologist Impression: Diffuse vascular opacities may reflect edema or atypical infection. Persistent left lung base consolidation and effusion. Critical Care Time Critical Care Time Critical Care Time: Yes Total Critical Care Time: 60 Attestation: I have personally provided critical care time. Time includes review of lab data, radiology results, discussion with consultants, and monitoring for potential decompensation. Intervention performed as documented. Discharge Plan Discharge Clinical Impression: Congestive heart failure, COVID-19 Patient Disposition: Admitted As Inpatient Prescriptions: No Action amiodarone 200 mg tablet 200 mg PO DAILY Rx Instructions: 400 mg twice daily for 10 days (end 04/30) then 200 mg daily after that carvedilol 3.125 mg Tablet 6.25 mg PO BID Qty: 60 0RF Protocol: Hold for SBP/HR < HOLD for SBP < : 90 HOLD for HR < : 60 isosorbide dinitrate 5 mg Tablet 5 mg PO BID Qty: 60 0RF Protocol: Hold for SBP< HOLD for SBP < : 90 hydralazine 25 mg tablet 50 mg PO BID Qty: 120 0RF furosemide [Lasix] 20 mg tablet 20 mg PO DAILY@1630 PRN (Reason: edema) Qty: 90 0RF furosemide [Lasix] 40 mg tablet 40 mg PO DAILY Qty: 90 0RF atorvastatin 40 mg Tablet 40 mg PO BEDTIME acetaminophen 325 mg Tablet 650 mg PO BEDTIME MDD 3 Grams in 24 hrs PRN (Reason: Elevated Temps) melatonin 3 mg Tablet 3 mg PO BEDTIME PRN (Reason: Insomnia) clopidogrel 75 mg Tablet 75 mg PO DAILY@0900 famotidine 20 mg Tablet 20 mg PO DAILY Eliquis 5 mg Tablet 5 mg PO BID Qty: 20 0RF Print Language: Libyan
[2024-09-11] MEDS: LORazepam 2 MG/ML VIAL 1 MG IM (19:49)
--- OUTSIDE RECORDS SUMMARY | 2024-09-11 19:51 | XMS_ITS ---
Author Organization [facility] Address [address] [place] [address] Care Team Providers Care Horseradish Grinder Name Role Phone Jose Manuel Escalera MD Primary Care Provider Unavaila Brandon Tse Unavailable [phone] REASON FOR VISIT cx 02/23 Encounters Encounter Location Date Provider Diagnosis [facility] [address] [place] [address] 02/23/2024 Brandon Lozano Plan Of Treatment No Information Progress Notes * Aaron VALVERDEDOB:1950 (73 yo M)Acc No.[id number]:02/23/2024 Patient:?Aaron Valverde :1950???Age:73 Y???Sex:Male Address:[address] [place] [address], [address] * true * Date:? Generated for Handyi shanti/Scarlett/eTransmitting on:?09/11/2024 07:51 PM EST
--- OUTSIDE RECORDS SUMMARY | 2024-09-11 19:51 | XMS_ITS ---
Author Organization [facility] Address [address] [place] [address] Care Team Providers Care Whitewasher Name Role Phone Jose Manuel Escalera MD Primary Care Provider Unavaila Brandon Tse Unavailable [phone] Encounters Encounter Location Date Provider Diagnosis [address] [address] 02/24/2024 Brandon Lozano Plan Of Treatment No Information Progress Notes * Aaron VALVERDEDOB:1950 (74 yo M)Acc No.[id number]:02/24/2024 Progress Note Patient:?Aaron VALVERDE Provider:?Brandon Lozano DPM :1950???Age:73 Y???Sex:Male Sulaiman e:02/24/2024 Address:[address] [place], [place] [id number] Pcp:Jose Manuel Escalera MD Subjective: * Chief [...] Lozano DPM Date:?2023 Generated for Laura moser/Scarlett/eTransmitting on:?09/11/2024 07:51 PM EST
--- OUTSIDE RECORDS SUMMARY | 2024-09-11 19:52 | XMS_ITS | Patient Health Record ---
Author Organization [facility] Matilde jes Pancho Address [address] [place] [address] Care Team Providers Care Mixed Crop Farmer Name Role Phone Jose Manuel Escalera MD Primary Care Provider Brandon Stokes Unavailable [phone] Allergies No Known Allergies Reason For Referral [...] W/U Status Risk Notes Problem Atherosclerosis of [place] arteries of the extremities ([id number]) Atherosclerosis of [place] artery of both lower extremities, with unspecified presence of clinical manifestation (I70.203) Active confirmed Vital Signs Height 5 ft 10 in in 11/25/2023 Weight 285 lbs 11/25/2023 BMI 40.89 kg/m2 11/25/2023 Procedures Procedure Date Ordered Date Performed Result Body Sit e 45006-JIGHQLU NAIL, 6 OR MORE 11/25/2023 N/A 05458-Glrqudaf Plate 11/25/2023 N/A 58013-YYXW SKIN LESIONS, OVER 4 11/25/2023 N/A Encounters Encounter Location Date Provider Diagnosis [facility] [address] [address] 11/25/2023 Brandon Lozano Atherosclerosis of [place] artery of both lower extremities, with unspecified presence of clinical manifestation I70.203 ; Tinea unguium B35.1 ; Pain in right toe(s) M79.674 ; Pain in left toe(s) M79.675 ; Ingrowing nail L60.0 and Xerosis of skin L85.3 [facility] [address] 02/23/2024 Brandon Lozano Assessments Encounter Date Diagnosis (ICD Code) Assessment Notes Treatment Notes Treatment Clinical Notes Section Notes 11/25/2023 Tinea unguium (ICD-10 - B35.1) 11/25/2023 Atherosclerosis of kan[place] artery of both lower extremities, with unspecified presence of clinical manifestation (ICD-10 - I70.203) 11/25/2023 Pain in right toe(s) (ICD-10 - M79.674) 11/25/2023 Pain in left toe(s) (ICD-10 - M79.675) 11/25/2023 Ingrowing nail (ICD-10 - L60.0) 11/25/2023 Xerosis of skin (ICD-10 - L85.3) Plan Of Treatment Pending Test Test Name Order Date 18751-EDGQSJP NAIL, 6 OR MORE 02/13/2021 84932-APOPBXV NAIL, 6 OR MORE 05/29/2021 56568-JFBCWQM NAIL, 6 OR MORE 12/04/2021 05352-VBVKTIW NAIL, 6 OR MORE 04/05/2022 54422-SDSRAZD NAIL, 6 OR MORE 11/25/2023 57109-Tsaalnbo Plate 11/25/2023 61067-Roeazeiz Plate 04/05/2022 98196-Iiugigwx Plate 05/29/2021 68322-BHMV SKIN LESIONS, OVER 4 05/29/20 21 87147-SNGM SKIN LESIONS, OVER 4 04/05/20 22 59400-KXBI SKIN LESIONS, OVER 4 12/05/19 22 92349-CWOF SKIN LESIONS, OVER 4 11/25/19 24 15484-AGAO SKIN LESIONS, 2 TO 4 02/14/20 21 Insurance Providers Payer Name Payer Address Payer Phone Subscriber Number Group Number Insured Name Patient Relationship to Insured Coverage Start Date Coverage End Date [employer] [facility] [address] [place] [address] [id number] Aaron Valverde Self - patient is the insured Medical (General) History Medical History History ICD Code Back,Hip,and Knee pain Dementia High blood pressure Stroke Measles Mumps Chicken pox CAD Surgical History Surgery Date(Month/Year) Hospitalization History Reason Date(Month/Year) [facility]- cold 03/2022
--- OUTSIDE RECORDS SUMMARY | 2024-09-11 19:52 | XMS_ITS ---
Author Organization [facility] Matilde jes MilliganWyola Address [address] [place] [address] Care Team Providers Care Community Relations Representative Name Role Phone Jose Manuel Escalera MD Primary Care Provider Chelaa Brandon Tse Unavailable [phone] Allergies No Known Allergies REASON FOR VISIT [...] Ordered Date Performed Result Body Sit e 33158-LATQITE NAIL, 6 OR MORE 11/25/2023 N/A 33765-Sykejwhc Plate 11/25/2023 N/A 73435-KCCN SKIN LESIONS, OVER 4 11/25/2023 N/A Encounters Encounter Location Date Provider Diagnosis [facility] [place] [address] [place] [address] 11/25/2023 Brandon Alonsounier Atherosclerosis of [place]om[place] artery of both lower extremities, with unspecified presence of clinical manifestation I70.203 ; Tinea unguium B35.1 ; Pain in right toe(s) M79.674 ; Pain in left toe(s) M79.675 ; Ingrowing nail L60.0 and Xerosis of skin L85.3 Assessments Encounter Date Diagnosis (ICD Code) Assessment Notes Treatment Notes Treatment Clinical Notes Section Notes 11/25/2023 Atherosclerosis of [place]ominee artery of both lower extremities, with unspecified [...] days Pending Test Test Name Order Date 62480-VSLEYGX NAIL, 6 OR MORE 11/25/2023 73094-Jbukvwnf Plate 11/25/2023 40163-DIVP SKIN LESIONS, OVER 4 11/25/19 24 Next [...] and future surgical procedures to prevent recurrence (36051), CIRCULATION: Pt was advised as to the [...] as necessary. Patient chooses, no pharmaceutical tx (21506) Keratoma Treatment Parring or Cutting o f Benign Hyperkeratotic Lesion(s) 70819 ( >4 Lesions) - The Benign hyperkeratotic lesions, as described above were pared, and/or cut utilizing a sterile #15 blade, tissue nippers, and/or dremel, Q8 Progress Notes * Aaron VALVERDEDOB:1950 (73 yo M)Acc No.[id number]:11/25/2023 Progress Note Patient:?Aaron Valverde Provider:?Brandon Lozano DPM :1950???Age:73 Y???Sex:Male Sulaiman e:11/25/2023 Address:[address] [place] [address] Pcp:Jose Manuel Escalera MD Subjective: * Chief [...] t Surgical History * Hospitalization/Major Diagno stic Procedure:?[facility] [place]- [facility] 03/2022 * Family History:?Mother: dece ased.?Father: .? [...] Assessment: 1.?Tinea unguium - B35.1?2.? Atherosclerosis of [place]ominee artery of both lower extremities, with unspecified presence of clinical manifestation - I70.203 (Primary)?3.?Pain in right toe(s) - M79.674?4.?Pain in left toe(s) - M79.675?5.?Ingrowing nail - L60.0, Medial nail border, T5?6.?Xerosis of skin - L85.3, Acute problem, Uncomplicated (3),Rx Management (4)? Plan: * Treatment: 2.?Tinea unguium?Procedure: 44146-QGZXUFR NAIL, 6 OR MORE 3.?Ingrowing nail?Procedure: 23213-Zykugsio Plate 4.?Xerosis of skin? Start Ammonium Lactate [...] as necessary. Patient chooses, no pharmaceutical tx (30307).?Keratoma Treatment:?Parring or Cutting of Benign Hyperkeratotic Lesion(s)?46494 ( >4 Lesions) - The Benign hyperkeratotic [...] and future surgical procedures to prevent recurrence (92816), CIRCULATION: Pt was advised as to the risk of delayed or nonhealing due to circulation. Pt is to call the office with any questions, concerns, or complications.? * Procedure Codes:?65119 DEBRI DE NAIL, 6 OR MORE, Modifiers: XS 12388 Avulsion Plate, Modifiers: XS , [id number] TRIM SKIN LESIONS, OVER 4, Modifiers: XS [...] Lozano DPM Date:?2023 Generated for Laura moser/Scarlett/Yovana on:?09/11/2024 07:51 PM EST History and Physical Notes * HPI (History of Present Illness) Category Sub-Category Detail Notes Category Not es Skin problems Nature: dryness , scaling Location: B/L Duration: several days Course: worse At Risk footcare Pt States Last PCP Visit: Date: 4 Examination Category Sub-Category Detail Notes Category Not es Ingrown Nail INSPECTION: Reveals nail inc urvation, pain on palpation, groove hypertrophy, Medial nail border, T5 Dermatologic SKIN FINDINGS: Skin exam reveal s Keratotic lesion(s) located at, Medial, IPJ, T5, SUB MTH (s), 1, B/L , Heel(s), B/L , Skin shows sign(s) of, dryness, scaling, in a stocking fashion, no fissure(s) present, B/L Vascular DP PULSES (B): 0/4, B/L PT PULSES (B): 0/4, B/L CAPILLARY FILL TIME: delayed, all digits , B/L TEMPERTURE GRADIENT (C): decreased, cool to cool, proximal to distal, B/L TROPHIC CONDITION-TEXTURE/ELASTICITY/TURGOR/HAIR GROWTH (B): decreased, B/L EDEMA (C): 2/4, non-pitting, wi thout aching pain, B/L, Leg(s), Ankle(s), Feet CLAUDICATION (C): denies, B/L REST PAIN: denies, B/L PIGMENTATION: mottled, B/L Nails NAILS are: Elongated, overg rown, dystrophic, lytic, greater than 3mm thick, discolored and friable with crumbly malodorous subungual debris, with pain on palpation, T1, T2, T3, T4, T5, T6, T7, T9
[2024-09-11 20:16] LABS: MANUAL DIFF FLAG NO
[2024-09-11 20:21] LABS: VBG Base Excess 1.8 mmol/L; VBG HCO3 29 mmol/L (22-26); VBG pCO2 58 mmHg; VBG pO2 81 mmHg
[2024-09-11 20:21] LABS: Venous Blood Gas Refer to POC result
[2024-09-11 20:22] LABS: Basophils Percent Auto 0.8 % (0-2); Eosinophils Absolute Auto 0.2 X10*3/uL (0.0-0.4); Eosinophils Percent Auto 3.7 % (0-4); Hemoglobin 13.8 g/dl (14.0-18.0); Imm Gran Abs Auto 0.02 X10*3/uL (0.00-0.03); Imm Gran Pct Auto 0.4 % (0.0-0.4); Lymphocytes Percent Auto 19.9 % (20-40); Mean Corpuscular HGB Conc 32.9 g/dl (31.0-36.0); Mean Corpuscular Hemoglobin 29.6 pg (27.0-33.0); Mean Corpuscular Volume 90.1 fL (80.0-98.0); Mean Platelet Volume 9.5 fL (9.4-12.4); Monocytes Absolute Auto 0.5 X10*3/uL (0.1-1.2); Neutrophils Absolute Auto 3.2 x10*3/uL (2.0-8.3); Neutrophils Percent Auto 64.2 % (45-73); Platelet Count 119 X10*3/uL (160-400); Red Blood Count 4.66 X10*6/uL (4.60-5.80); Red Cell Distribution Width 15.4 % (11.0-16.0); White Blood Count 4.9 X10*3/uL (4.8-10.8)
[2024-09-11 20:25] LABS: INTERNATIONAL NORM RATIO 1.4 (0.9-1.1); Prothrombin Time 15.8 SEC (10.9-12.4)
[2024-09-11 20:37] LABS: Alanine Aminotransferase 27 U/L (0-40); Albumin Level 4.1 g/dL (3.5-5.0); Alkaline Phosphatase 161 U/L (39-117); Anion Gap 14 (12-20); Aspartate Amino Transferase 36 U/L (5-37); Bilirubin Direct 0.4 mg/dL (0.0-0.5); Bilirubin Total 0.7 mg/dL (0.0-1.0); Blood Urea Nitrogen 24 mg/dL (9-16); Calcium 8.5 mg/dL (8.4-10.2); Carbon Dioxide 25 mmol/L (22-29); Chloride 107 mmol/L (96-108); Creatinine Clr Calc Pharmacy 42.3; Estimated Glomerular Filt Rate 36; Glucose Random 141 mg/dL (60-115); Lactic Acid 1.4 mmol/L (0.5-2.0); Potassium 3.9 mmol/L (3.3-5.1); Sodium 142 mmol/L (135-145); Total Protein 7.3 g/dL (6.5-8.0)
[2024-09-11 20:40] LABS: B Type Natriuretic Peptide 554 pg/mL (<100)
[2024-09-11 20:44] LABS: Troponin-I High Sensitivity 21.3 ng/L (<3.5-35.0)
[2024-09-11 20:52] LABS: IDNOW Serial# 58CA691E; Influenza A Negative (Negative); Influenza B2 Negative (Negative)
[2024-09-11 20:53] LABS: COVID-19 Test Positive (Negative); IDNOW Serial# 55D5AD1C
[2024-09-11] MEDS: Furosemide 40 MG/4 ML VIAL IVPUSH (21:39)
[2024-09-11] MEDS: dexAMETHasone sod phosphate 4 MG/ML VIAL 6 MG IVPUSH (21:42)
[2024-09-11] MEDS: cefTRIAXone sodium 1 GM VIAL IVPUSH (21:42)
[2024-09-11] MEDS: Azithromycin 500 MG in 0.9 % Sodium Chloride 250 ML 125 MG IV (21:46)
[2024-09-11 21:54] LABS: Venous Blood Gas Refer to POC result
[2024-09-11 21:54] LABS: VBG Base Excess 3.5 mmol/L; VBG HCO3 28 mmol/L (22-26); VBG pCO2 43 mmHg; VBG pH 7.41 (7.32-7.43); VBG pO2 82 mmHg
--- NOTE | 2024-09-11 22:12 | P.HPHOSP_ITS ---
History of Present Illness Date of Service: 09/11/24 Attending physician on admission: Johanny Nugent Chief Complaint: SOB, TOSCANO Pt is a 74-year-old male with a PMH significant for?CVA, hypertension, history of VFib cardiac arrest, HFrEF s\p ICD, atrial flutter on Eliquis, CKD 3, and CAD who presents to the ED with?increased SOB, difficulty breathing, and TOSCANO for the past 4-5 days. Patient reports has been experiencing increased SOB and TOSCANO especially going upstairs earlier in the week. Yesterday patient developed a cough and a ?little cold?. Symptoms worsened today to the point that the patient ?could not breathe? 3-4 hours ago which prompted his call to EMS. Patient is not on home O2 nor carries any significant pulmonary diagnoses. Denies significant swelling in extremities. No fever, chills, nausea, vomiting. Denies abdominal pain. Of note, patient was discharged from the hospital 60s after being treated for acute CHF exacerbation. In the ED pt was tachycardic up to 113, tachypneic up to 36, and hypertensive as high as 181/87, satting as low as 90% on 4 L NC. Patient was initially placed on rescue CPAP and eventually weaned. Labs were significant for testing positive for COVID. Labs otherwise grossly unremarkable and around baseline for patient. No leukocytosis. Stable H&H. No significant electrolyte abnormalities. Renal function baseline at 1.83. Troponin baseline at 21.3. BNP elevated but around baseline at 554. CXR showed diffuse vascular opacities that may reflect either edema or atypical infection and redemonstrated persistent left lung base consolidation and effusion. EKG demonstrated atrial sensed ventricular paced rhythm with rate of 110. Pt was treated with lorazepam, furosemide, ceftriaxone, azithromycin, and dexamethasone. Pt will be admitted to the hospital for treatment and further evaluation of acute hypoxic respiratory failure in the setting of COVID infection with concomitant mild CHF exacerbation. Review of Systems 2 Review of Systems: Negative except for that which is stated in the [facility] Medical History Biventricular ICD (implantable cardioverter-defibrillator) in place Paroxysmal atrial flutter Atrial flutter Coronary artery disease History of cardiac arrest Complete heart block Ventilator associated pneumonia STEMI (ST elevation myocardial infarction) Ischemic cardiomyopathy Hypertension Hx of nursing home use of blood thinners COPD (chronic obstructive pulmonary disease) Surgical History S/P ICD (internal cardiac defibrillator) procedure Social History Household Members: Spouse Housing: Other Do you presently have visiting nurse or other home services: No Patient Tobacco Use Status: Former Tobacco user Smoked in Last 30 Days: No Second Hand Smoke Exposure: No Use of substances other than those prescribed or required for medical reasons: No Advance Directives: Yes Advance Directives Information Provided: No Advance Directives on File: No Do you have a plan to hurt others: No Plan service: No Meds Allergies Allergy/AdvReac Type Severity Reaction Status Date / Time No Known Allergies Allergy Verified 09/11/24 19:35 [No Known Allergies*] Active Medications: Current Medications Acetaminophen (Acetaminophen 325 Mg Tablet) 650 mg PO Q6H PRN PRN Reason: Pain, Mild (Pain Scale 1-3), fever or headache Albuterol/Ipratropium (Albuterol/Iprat 2.5/0.5mg 3 Ml Ampul.Neb) 3 ml INHALE Q4H PRN PRN Reason: Shortness of Breath/Wheezing Benzonatate (Benzonatate 100 Mg Capsule) 100 mg PO TID PRN PRN Reason: Cough Calcium Carbonate (Calcium Carbonate 750 Mg Tab.Chew) 750 mg PO Q4H PRN PRN Reason: Heartburn Dexamethasone (Dexamethasone 6 Mg Tablet) 6 mg PO DAILY [facility] Furosemide (Furosemide 40 Mg/4 Ml Vial) 40 mg IVPUSH DAILY [facility]; Protocol Azithromycin 500 mg/ Sodium (Chloride) 250 mls @ 125 mls/hr IV ONCE ONE Stop: 09/11/24 22:46 Last Admin: 09/11/24 21:46 Dose: 125 mls/hr Magnesium Hydroxide (Milk Of Magnesia 30 Ml Oral.Susp) 30 ml PO DAILY PRN PRN Reason: Constipation Melatonin (Melatonin 3 Mg Tablet) 6 mg PO BEDTIME PRN PRN Reason: Insomnia Ondansetron HCl (Ondansetron Hcl 4 Mg/2 Ml Vial) 4 mg IVPUSH Q8H PRN PRN Reason: Nausea and Vomiting Sodium Chloride (0.9 % Sodium Chloride Flush 3 Ml Syringe) 3 ml IVFLUSH QSHIFT [facility] Home Medications ?Medication ?Instructions ?Recorded ?Confirmed ?Last Taken ?Type acetaminophen 325 mg tablet 650 mg PO BEDTIME PRN Elevated 04/19/24 09/03/24 Unknown History Temps atorvastatin 40 mg tablet 40 mg PO BEDTIME 04/19/24 09/03/24 09/02/24 History clopidogrel 75 mg tablet 75 mg PO DAILY@0900 04/19/24 09/03/24 09/03/24 History famotidine 20 mg tablet 20 mg PO DAILY 04/19/24 09/03/24 09/03/24 History melatonin 3 mg tablet 3 mg PO BEDTIME PRN Insomnia 04/19/24 09/03/24 06/30/24 History amiodarone 200 mg tablet 200 mg PO DAILY 07/01/24 09/03/24 09/03/24 History Physical Exam 2 Vital Signs and Narrative: Vital Signs: Last Vital Signs Temp 98.9 F 09/11/24 21:58 Pulse 98 09/11/24 21:58 Resp 26 H 09/11/24 21:58 BP 181/87 H 09/11/24 21:58 Pulse Ox 99 09/11/24 21:58 O2 Del Method Nasal Cannula 09/11/24 21:58 O2 Flow Rate 6 09/11/24 21:58 Oxygen Flow Rate 4 09/11/24 19:27 BMI result Body Mass Index 33.2 Constitutional: Alert, in no acute distress. Mental Status: Oriented to person, place and time. Eyes: Pupils are equal, round, and reactive to light. Ear, Nose, and Throat: Oropharynx clear, mucous membranes moist. Ears and nose without deformities. Trachea midline. Respiratory: Diffuse expiratory wheezing bilaterally. Cardiovascular: S1, S2 regula rate, tachycardic r. No murmurs, rubs, or gallops. No JVD appreciated. Gastrointestinal: Abdomen soft, non-tender, non-distended. Normal bowel sounds. Neurologic: Cranial nerves II-XII are grossly intact bilaterally. No focal neurological deficits. Moves all extremities spontaneously. Skin: Warm, dry. Extremities: Non-pitting bilateral edema. Psychiatric: Normal mood and affect. Results Labs 09/11/24 20:06 09/11/24 20:06 Labs: Laboratory Results - last 24 hr 09/11/24 09/11/24 09/11/24 20:06 20:09 20:15 MCV 90.1 MCH 29.6 MCHC 32.9 RDW 15.4 Plt Count 119 L MPV 9.5 Immature Gran % (Auto) 0.4 Neut % (Auto) 64.2 Lymph % (Auto) 19.9 L [place] % (Auto) 11.0 Eos % (Auto) 3.7 Baso % (Auto) 0.8 Lymph # (Auto) 1.0 L [place] # (Auto) 0.5 Eos # (Auto) 0.2 Baso # (Auto) 0.0 Abs Immat Gran (auto) 0.02 Absolute Neuts (auto) 3.2 Absolute Nucleated RBC 0.000 Nucleated RBC % (auto) 0.0 PT 15.8 H INR 1.4 H VBG pH 7.30 L VBG pCO2 58 VBG pO2 81 VBG HCO3 29 H VBG O2 Saturation 95.0 VBG Base Excess 1.8 Anion Gap 14 Estim Creat Clear Calc 42.3 Estimated GFR 36 Random Glucose 141 H Lactic Acid 1.4 Calcium 8.5 Total Bilirubin 0.7 Direct Bilirubin 0.4 AST 36 ALT 27 Alkaline Phosphatase 161 H Troponin I High Sens 21.3 B-Natriuretic Peptide 554 H Total Protein 7.3 Albumin 4.1 COVID-19 (JAZZY) Positive A COVID-19 Clin Com See Note Influenza Type A (BUCKY) Negative Influenza Type B (BUCKY) Negative Influenza A & B Note See Note 09/11/24 21:47 MCV MCH MCHC RDW Plt Count MPV Immature Gran % (Auto) Neut % (Auto) Lymph % (Auto) [place] % (Auto) Eos % (Auto) Baso % (Auto) Lymph # (Auto) [place] # (Auto) Eos # (Auto) Baso # (Auto) Abs Immat Gran (auto) Absolute Neuts (auto) Absolute Nucleated RBC Nucleated RBC % (auto) PT INR VBG pH 7.41 VBG pCO2 43 VBG pO2 82 VBG HCO3 28 H VBG O2 Saturation 98.0 VBG Base Excess 3.5 Anion Gap Estim Creat Clear Calc Estimated GFR Random Glucose Lactic Acid Calcium Total Bilirubin Direct Bilirubin AST ALT Alkaline Phosphatase Troponin I High Sens B-Natriuretic Peptide Total Protein Albumin COVID-19 (JAZZY) COVID-19 Clin Com Influenza Type A (BUCKY) Influenza Type B (BUCKY) Influenza A & B Note Imaging Radiologist's Impressions: Impressions Chest X-Ray 09/11/24 20:10 IMPRESSION: Diffuse vascular opacities may reflect edema or atypical infection. Persistent left lung base consolidation and effusion. Electronically signed by: Lisa Sarabia MD 09/11/2024 08:42 PM EST Assessment and Plan (1) COVID: Status: Acute (2) Hypoxia: Status: Acute Plan Pt is a 74-year-old male with a PMH significant for?CVA, hypertension, history of VFib cardiac arrest, HFrEF s\p ICD, atrial flutter on Eliquis, CKD 3, and CAD who presents to the ED with?increased SOB, difficulty breathing, and TOSCANO for the past 4-5 days. Pt will be admitted to the hospital for treatment and further evaluation of acute hypoxic respiratory failure in the setting of COVID infection with concomitant mild CHF exacerbation. Acute hypoxic respiratory failure in the setting of COVID infection Patient desatting into 80s on RA, initially placed on rescue CPAP in the ED before transitioning to 6 L NC Patient with diffuse significant wheezing upon auscultation, former smoker but no COPD diagnosis and not on home O2 or inhalers Will treat with dexamethasone, DuoNebs, and guaifenesin No indication to continue antibiotics at this time, infection viral not bacterial, no sepsis Titrate supplemental O2 >92, wean as tolerated Monitor respiratory status HFrEF exacerbation, mild BNP elevated, CXR showing diffuse vascular opacities likely edema versus atypical infection and persistent left lung effusion Will treat with Lasix 40 mg IV daily Echocardiogram, last echo on file is from 05/13/2014 showed mildly reduced EF of 45-50% Monitor lytes, daily weights, I/O HTN Continue carvedilol, hydralazine CAD/HLD Continue statin, clopidogrel, isosorbide dinitrate GERD Continue famotidine Full Code Attending:?Dr. Nugent DVT Prophylaxis: Lovenox Med rec pending Pt will require a hospitalization of at least two nights for treatment of?acute hypoxic respiratory failure in the setting of COVID infection with concomitant mild CHF exacerbation. Patient will require administration of IV steroids, breathing treatments, and IV diuretics with close monitoring of labs. Quality Stroke Does the patient have a stroke diagnosis?: No VTE Prior VTE?: No VTE Risk Level:: Medical - moderate - high VTE Device Contraindication: Treatment Not Indicated VTE Drug Contraindication: N/A - Med Ordered
[2024-09-11] MEDS: carvediloL 6.25 MG TABLET PO (23:12)
[2024-09-11] MEDS: hydrALAZINE HCl 50 MG TABLET PO (23:13)
[2024-09-12 00:09] VITALS: BMI 38.6
[2024-09-12 04:00] VITALS: BP 154/74; PULSE 84; RESP 18; TEMP 37.1; O2SAT 93
[2024-09-12 07:10] LABS: MANUAL DIFF FLAG NO
[2024-09-12 07:19] LABS: Basophils Percent Auto 0.6 % (0-2); Hematocrit 43.1 % (42.0-52.0); Hemoglobin 13.9 g/dl (14.0-18.0); Imm Gran Abs Auto 0.01 X10*3/uL (0.00-0.03); Imm Gran Pct Auto 0.3 % (0.0-0.4); Lymphocytes Absolute Auto 0.5 X10*3/uL (1.2-4.9); Lymphocytes Percent Auto 13.6 % (20-40); Mean Corpuscular HGB Conc 32.3 g/dl (31.0-36.0); Mean Corpuscular Hemoglobin 29.3 pg (27.0-33.0); Mean Corpuscular Volume 90.7 fL (80.0-98.0); Mean Platelet Volume 9.7 fL (9.4-12.4); Monocytes Absolute Auto 0.1 X10*3/uL (0.1-1.2); Monocytes Percent Auto 4.1 % (2-11); Neutrophils Absolute Auto 2.8 x10*3/uL (2.0-8.3); Neutrophils Percent Auto 81.4 % (45-73); Platelet Count 109 X10*3/uL (160-400); Red Blood Count 4.75 X10*6/uL (4.60-5.80); Red Cell Distribution Width 15.2 % (11.0-16.0); White Blood Count 3.4 X10*3/uL (4.8-10.8)
[2024-09-12 07:25] LABS: Anion Gap 14 (12-20); Blood Urea Nitrogen 27 mg/dL (9-16); Calcium 8.5 mg/dL (8.4-10.2); Carbon Dioxide 26 mmol/L (22-29); Chloride 107 mmol/L (96-108); Creatinine Clr Calc Pharmacy 44.4; Estimated Glomerular Filt Rate 35; Glucose Random 142 mg/dL (60-115); Potassium 3.7 mmol/L (3.3-5.1); Sodium 143 mmol/L (135-145)
--- NOTE | 2024-09-12 07:27 | HO.PM.IMPN ---
Subjective Subjective Date of Service: 09/12/24 Interval History: Follow-up on acute hypoxic respiratory failure due to COVID-19 He is feeling better with less O2 requirement Physical Exam Vital Signs: Vital Signs: Last Vital Signs Temp 98.7 F 09/12/24 04:00 Pulse 84 09/12/24 04:00 Resp 18 09/12/24 04:00 BP 154/74 H 09/12/24 04:00 Pulse Ox 93 09/12/24 04:00 O2 Del Method Nasal Cannula 09/12/24 04:00 O2 Flow Rate 6 09/12/24 04:00 Oxygen Flow Rate 4 09/11/24 19:27 BMI result Body Mass Index 38.6 Const: Other: General: AO X 3, no acute distress Resp: bilateral rhonic CVS: S1,S2,RRR GI: +BS, NT, no distention Skin: No rash Neuro: motor grossly intact Psych: appropriate affect Objective Data Active Medications Acetaminophen (Acetaminophen 325 Mg Tablet) 650 mg PO Q6H PRN PRN Reason: Pain, Mild (Pain Scale 1-3), fever or headache Albuterol/Ipratropium (Albuterol/Iprat 2.5/0.5mg 3 Ml Ampul.Neb) 3 ml INHALE Q4H PRN PRN Reason: Shortness of Breath/Wheezing Benzonatate (Benzonatate 100 Mg Capsule) 100 mg PO TID PRN PRN Reason: Cough Calcium Carbonate (Calcium Carbonate 750 Mg Tab.Chew) 750 mg PO Q4H PRN PRN Reason: Heartburn Dexamethasone (Dexamethasone 6 Mg Tablet) 6 mg PO DAILY AVERY Furosemide (Furosemide 40 Mg/4 Ml Vial) 40 mg IVPUSH DAILY [facility]; Protocol Hydralazine HCl (Hydralazine Hcl 50 Mg Tablet) 50 mg PO BID [facility]; Protocol Last Admin: 09/11/24 23:13 Dose: 50 mg Documented By: RUBEN Magnesium Hydroxide (Milk Of Magnesia 30 Ml Oral.Susp) 30 ml PO DAILY PRN PRN Reason: Constipation Melatonin (Melatonin 3 Mg Tablet) 6 mg PO BEDTIME PRN PRN Reason: Insomnia Ondansetron HCl (Ondansetron Hcl 4 Mg/2 Ml Vial) 4 mg IVPUSH Q8H PRN PRN Reason: Nausea and Vomiting Sodium Chloride (0.9 % Sodium Chloride Flush 3 Ml Syringe) 3 ml IVFLUSH QSHIFT [facility] Labs 09/12/24 07:06 09/12/24 07:06 Labs: Laboratory Results - last 24 hr 09/11/24 09/11/24 09/11/24 20:06 20:09 20:15 MCV 90.1 MCH 29.6 MCHC 32.9 RDW 15.4 Plt Count 119 L MPV 9.5 Immature Gran % (Auto) 0.4 Neut % (Auto) 64.2 Lymph % (Auto) 19.9 L [place] % (Auto) 11.0 Eos % (Auto) 3.7 Baso % (Auto) 0.8 Lymph # (Auto) 1.0 L [place] # (Auto) 0.5 Eos # (Auto) 0.2 Baso # (Auto) 0.0 Abs Immat Gran (auto) 0.02 Absolute Neuts (auto) 3.2 Absolute Nucleated RBC 0.000 Nucleated RBC % (auto) 0.0 PT 15.8 H INR 1.4 H VBG pH 7.30 L VBG pCO2 58 VBG pO2 81 VBG HCO3 29 H VBG O2 Saturation 95.0 VBG Base Excess 1.8 Anion Gap 14 Estim Creat Clear Calc 42.3 Estimated GFR 36 Random Glucose 141 H Lactic Acid 1.4 Calcium 8.5 Total Bilirubin 0.7 Direct Bilirubin 0.4 AST 36 ALT 27 Alkaline Phosphatase 161 H Troponin I High Sens 21.3 B-Natriuretic Peptide 554 H Total Protein 7.3 Albumin 4.1 COVID-19 (JAZZY) Positive A COVID-19 Clin Com See Note Influenza Type A (BUCKY) Negative Influenza Type B (BUCKY) Negative Influenza A & B Note See Note 09/11/24 09/12/24 21:47 07:06 MCV 90.7 MCH 29.3 MCHC 32.3 RDW 15.2 Plt Count 109 L MPV 9.7 Immature Gran % (Auto) 0.3 Neut % (Auto) 81.4 H Lymph % (Auto) 13.6 L [place] % (Auto) 4.1 Eos % (Auto) 0.0 Baso % (Auto) 0.6 Lymph # (Auto) 0.5 L [place] # (Auto) 0.1 Eos # (Auto) 0.0 Baso # (Auto) 0.0 Abs Immat Gran (auto) 0.01 Absolute Neuts (auto) 2.8 Absolute Nucleated RBC 0.000 Nucleated RBC % (auto) 0.0 PT INR VBG pH 7.41 VBG pCO2 43 VBG pO2 82 VBG HCO3 28 H VBG O2 Saturation 98.0 VBG Base Excess 3.5 Anion Gap 14 Estim Creat Clear Calc 44.4 Estimated GFR 35 Random Glucose 142 H Lactic Acid Calcium 8.5 Total Bilirubin Direct Bilirubin AST ALT Alkaline Phosphatase Troponin I High Sens B-Natriuretic Peptide Total Protein Albumin COVID-19 (JAZZY) COVID-19 Clin Com Influenza Type A (BUCKY) Influenza Type B (BUCKY) Influenza A & B Note Assessment and Plan (1) COVID: Status: Acute (2) Acute exacerbation of CHF (congestive heart failure): Status: Acute Plan 74-year-old male with a PMH significant for?CVA, hypertension, history of VFib cardiac arrest, HFrEF s\p ICD, atrial flutter on Eliquis, CKD 3, and CAD who presents to the ED with?increased SOB, difficulty breathing, and TOSCANO for the past 4-5 days. Pt will be admitted to the hospital for treatment and further evaluation of acute hypoxic respiratory failure in the setting of COVID infection with concomitant mild CHF exacerbation. Acute hypoxic respiratory failure due to covid 19, required cpap in the ED IV dexamethasone started 09/11 bronchodilators by Neb, cough syrup continuously O2 monitoring, goal O2 sat > 92 HFrEF exacerbation, mild, EF 45-50 IV Lasix 40/d and monitor BNP, change to po lasix tomorrow Permanent aflutter/afib, amiodarone eliquis HTN Continue carvedilol, hydralazine CAD/HLD Continue statin, clopidogrel, isosorbide dinitrate CKD 3B, stable GERD Continue famotidine Full Code DVT Prophylaxis: Lovenox need for inpt: Acute hypoxic resp failure d/t covid 19 and HF Quality Stroke Does the patient have a stroke diagnosis?: No VTE Prior VTE?: No VTE Risk Level:: Medical - moderate - high VTE Device Contraindication: Treatment Not Indicated VTE Drug Contraindication: N/A - Med Ordered
[2024-09-12 07:32] VITALS: BP 161/86; PULSE 84; RESP 18; TEMP 36.6; O2SAT 94
--- NOTE | 2024-09-12 07:46 | PC.NURSE ---
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
--- NOTE | 2024-09-12 08:43 | MHC.CM.PN ---
Patient is Covid (+); CM spoke with /HCP/Isha @ [phone] and addressed IMM with her (original will be mailed certified letter to Isha and a copy has been placed on the chart). Patient lives in a house with his and he uses a cane outside of the house. Patient was recently dc'd from services through [facility] and they are requesting another/new referral. CM has initiated and will follow for dc planning. PCP is Dr. Jose Manuel Escalera and will transport to home.
--- NOTE | 2024-09-12 08:54 | PHA.MEDREC ---
Pharmacy Consult ? Medication Reconciliation Pharmacy has completed the medication reconciliation. Spoke to patient's Isha over the phone ([phone]) who confirmed med list, noted he takes amiodarone twice daily despite claim history for once daily
[2024-09-12] MEDS: Apixaban 5 MG TABLET PO ×2 (09:31→20:21)
[2024-09-12] MEDS: hydrALAZINE HCl 50 MG TABLET PO ×2 (09:31→20:21)
[2024-09-12] MEDS: dexAMETHasone 6 MG TABLET PO (09:31)
[2024-09-12] MEDS: 0.9 % Sodium Chloride Flush 3 ML SYRINGE IVFLUSH ×2 (09:32→20:22)
[2024-09-12] MEDS: Furosemide 40 MG/4 ML VIAL IVPUSH (09:33)
[2024-09-12] MEDS: Amiodarone HCL 200 MG TABLET PO ×2 (11:55→20:21)
[2024-09-12] MEDS: Famotidine 20 MG TABLET PO (11:55)
[2024-09-12] MEDS: carvediloL 6.25 MG TABLET PO ×2 (11:57→20:21)
[2024-09-12] MEDS: Clopidogrel Bisulfate 75 MG TABLET PO (11:57)
[2024-09-12 12:00] VITALS: BP 145/67; PULSE 75; RESP 20; TEMP 36.4; O2SAT 98
[2024-09-12] MEDS: Isosorbide Dinitrate 5 MG TABLET PO ×2 (12:49→20:21)
[2024-09-12] MEDS: Fluticasone Propionate Nasal 16 GM SPRAY 1 SPRAY NOSTRIL-B ×2 (12:49→20:21)
[2024-09-12 15:33] VITALS: BP 128/60; PULSE 71; RESP 20; TEMP 36.7; O2SAT 98
[2024-09-12 19:24] VITALS: BP 139/74; PULSE 81; RESP 16; TEMP 36.4; O2SAT 98
[2024-09-12] MEDS: Atorvastatin Calcium 40 MG TABLET PO (20:21)
[2024-09-12 23:32] VITALS: BP 136/63; PULSE 76; RESP 17; TEMP 36.2; O2SAT 98
[2024-09-13 03:48] VITALS: BP 151/75; PULSE 87; RESP 19; TEMP 36.1; O2SAT 100
--- NOTE | 2024-09-13 07:00 | CA_ITS ---
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 There is mildly increased left ventricular wall thickness. The left ventricular systolic function is moderately decreased. The visually estimated ejection fraction is between 30-35%. - The mid anterolateral segment is hypokinetic. - The apex, apical inferior, apical lateral, apical septum, mid anteroseptal, and mid inferolateral segments are akinetic. - The left atrium is severely dilated. - Moderately elevated right atrial pressure. Mild pulmonary hypertension is present. Findings Procedure Information Contrast agent, definity, is being given per protocol without apparent complications. Left Ventricle Normal left ventricular cavity size. There is mildly increased left ventricular wall thickness. The left ventricular systolic function is moderately decreased. The visually estimated ejection fraction is between 30 35%. There is evidence of regional wall motion abnormalities. Diastolic function is indeterminate on the basis of available data. Wall Motion Rest Echo Findings The mid anterolateral segment is hypokinetic. The apex, apical inferior, apical lateral, apical septum, mid anteroseptal, and mid inferolateral segments are akinetic. Right Ventricle Normal right ventricular cavity size and systolic function. There is a pacemaker wire seen in the right ventricle. Atria The left atrium is severely dilated. Aortic Valve There is mild calcification of the aortic valve. There is no aortic valve stenosis. There is no aortic valve regurgitation. Mitral Valve There is severe mitral annular calcification. There is trace mitral valve regurgitation. There is no mitral valve stenosis. Pulmonic Valve The pulmonic valve was not well visualized. Tricuspid Valve Normal tricuspid valve structure. There is trace tricuspid valve regurgitation. The right ventricular systolic pressure is 38 mmHg. Moderately elevated right atrial pressure. Mild pulmonary hypertension is present. Venous The inferior vena cava is dilated and collapses greater than 50% with inspiration. Pericardium/Pleural There is no evidence of pericardial effusion. Prior Study Comparison Changes noted compared to prior study dated: 03/14/2017. EF 30-35%, Ischemia cardiomyopathy with LAD territory RWMA. Measurements 2D Linear Measurements IVSd: 1.31 0.6-0.9/0.6-1.0 cm LVIDd: 5.25 3.9-5.3/4.2-5.9 cm LVIDd Index: 2.27 2.4-3.2/2.2-3.1 cm/m2 LVIDs: 3.67 2.0-3.6 cm LVPWd: 1.28 0.7-1.1 cm Ao Root: 3.10 2.1-3.5 cm LA Diam: 5.10 2.7-3.8/3.0-4.0 cm LAIDs Index: 2.21 1.5-2.3 cm/m2 LV Mass: 350.67 67-162/88-224 g LV Mass Index: 151.81 43-95/49-115 g/m2 LVOT Diam: 2.20 3.0+(-)1.3 cm 2D Systolic Function EF 4C: 42.40 >55% EF 2C: 43.70 >55% EF BiP: 42.90 >55% Mitral Valve MV VTI: 0.53 MV Pk Erik: 1.56 MV Mn Erik: 1.00 MV Pk Grad: 10.00 MV Mn Grad: 5.00 MV Pk E: 1.22 MV PK A: 1.39 MV Decel Time: 155.00 E/A: 0.90 E'Lateral: 6.42 E'Medial: 5.00 E/E' Med: 24.40 E/E' Lat: 19.00 PHT: 46.00 MVA PHT: 4.78 MVA Continuity: 1.46 Decel Mclennan: 7.83 Aortic Valve AoV Pk Erik: 1.61 AoV Mn Erik: 0.92 AoV VTI: 0.31 AoV Pk Grad: 10.00 Aov Mn Grad: 4.00 SITA Cont.VTI: 2.45 LVOT LVOT Pk Erik: 0.93 LVOT Mn Erik: 0.61 LVOT VTI: 0.20 LVOT Pk Grad: 3.00 LVOT Mn Grad: 2.00 LVOT Diam: 2.20 LVOT Area: 3.80 Diastolic Function MV Pk E: 1.22 MV Pk A: 1.39 E/A: 0.90 E'Medial: 5.00 E/E' Med: 24.40 E' Laterial: 6.42 E/E' Lat: 19.00 Tricuspid Valve TR Pk Erik: 2.73 TR Pk Grad: 30.00 RA Press: 8.00 RVSP: 38.00 Great Vessels Aorta Ao Root-2D: 3.10 2.0-3.7 cm Ao Asc: 3.10 2.1-3.4 cm Pulmonary Valve PV Pk Erik: 0.88 Peak PV Grad: 3.00 Updated in Other Vendor System with Status of Final Marvel Devlin MD electronically signed on 09/13/2024 8:10:21 PM with status of Final
[2024-09-13 07:48] VITALS: BP 148/87; PULSE 79; RESP 19; TEMP 36; O2SAT 99
--- NOTE | 2024-09-13 08:21 | PM.DS ---
DS: Providers Provider Date of Service: 09/13/24 Date of admission: 09/11/24 22:07 Primary care physician: Jose Manuel Escalera MD DS: Diagnosis Discharge Diagnosis (1) COVID: Status: Acute (2) Acute exacerbation of CHF (congestive heart failure): Status: Resolved DS: Summary Hospital Course Hospital Course: Chief Complaint: SOB, TOSCANO Pt is a 74-year-old male with a PMH significant for?CVA, hypertension, history of VFib cardiac arrest, HFrEF s\p ICD, atrial flutter on Eliquis, CKD 3, and CAD who presents to the ED with?increased SOB, difficulty breathing, and TOSCANO for the past 4-5 days. Patient reports has been experiencing increased SOB and TOSCANO especially going upstairs earlier in the week. Yesterday patient developed a cough and a ?little cold?. Symptoms worsened today to the point that the patient ?could not breathe? 3-4 hours ago which prompted his call to EMS. Patient is not on home O2 nor carries any significant pulmonary diagnoses. Denies significant swelling in extremities. No fever, chills, nausea, vomiting. Denies abdominal pain. Of note, patient was discharged from the hospital 60s after being treated for acute CHF exacerbation. In the ED pt was tachycardic up to 113, tachypneic up to 36, and hypertensive as high as 181/87, satting as low as 90% on 4 L NC. Patient was initially placed on rescue CPAP and eventually weaned. Labs were significant for testing positive for COVID. Labs otherwise grossly unremarkable and around baseline for patient. No leukocytosis. Stable H&H. No significant electrolyte abnormalities. Renal function baseline at 1.83. Troponin baseline at 21.3. BNP elevated but around baseline at 554. CXR showed diffuse vascular opacities that may reflect either edema or atypical infection and redemonstrated persistent left lung base consolidation and effusion. EKG demonstrated atrial sensed ventricular paced rhythm with rate of 110. Pt was treated with lorazepam, furosemide, ceftriaxone, azithromycin, and dexamethasone. Pt will be admitted to the hospital for treatment and further evaluation of acute hypoxic respiratory failure in the setting of COVID infection with concomitant mild CHF exacerbation. hospital course: Patient presenting with a shortness of breath worse with exertion. He was noted to be hypoxic at a time with oxygen dropping to 90% on 4 L and he was temporarily put on a CPAP in the emergency room. Testing reveal COVID and some evidence of heart failure. He was admitted and treated for COVID with dexamethasone oxygen as needed and intravenous Lasix for heart failure. He is doing much better at this time. His oxygen saturation is 99% on room air with no signs of respiratory difficulty. He will be transitioned to oral dexamethasone to complete a 7 day course and to continue oral Lasix. To follow up his primary care physician upon discharge as well. Patient felt comfortable going home today. Time Attestation Discharge Coordination Time (in mins): 40 Quality: Safe Use of Opioids Does Pt have an Active Cancer Diagnosis on the Problem List?: No Quality: Stroke Does the patient have a stroke diagnosis?: No Physical Exam Vital Signs: Vital Signs: Last Vital Signs Temp 96.8 F 09/13/24 07:48 Pulse 79 09/13/24 07:48 Resp 19 09/13/24 07:48 BP 148/87 H 09/13/24 07:48 Pulse Ox 99 09/13/24 07:48 O2 Del Method Room Air 09/13/24 07:48 O2 Flow Rate 6 09/13/24 03:48 Oxygen Flow Rate 4 09/11/24 19:27 BMI result Body Mass Index 38.6 General: AO X 3, no acute distress Resp: CTA bilateral CVS: S1,S2,RRR GI: +BS, NT, no distention Skin: No rash Neuro: motor grossly intact Psych: appropriate affect DS: Data Data Completed and Pending Labs on day of discharge: Preliminary micro results at discharge 09/11/24 20:20 Blood Culture - Preliminary Blood - Venous No growth after 24 hours. 09/11/24 20:10 Blood Culture - Preliminary Blood - Venous No growth after 24 hours. Discharge Plan Discharge Anticipated Discharge Date/Time: 09/13/24 08:23 Patient Disposition: Home, Self-Care Discharge Diagnosis: COVID-19, CHF Referrals: Jose Manuel Escalera MD [Primary Care Provider] - 1 Week Discharge Medications: New dexamethasone 6 mg Tablet 6 mg PO DAILY Qty: 4 0RF Rx Instructions: next dose tomorrow morning Continued amiodarone 200 mg tablet 200 mg PO BID carvedilol 3.125 mg Tablet 6.25 mg PO BID Qty: 60 0RF Protocol: Hold for SBP/HR < HOLD for SBP < : 90 HOLD for HR < : 60 isosorbide dinitrate 5 mg Tablet 5 mg PO BID Qty: 60 0RF Protocol: Hold for SBP< HOLD for SBP < : 90 hydralazine 25 mg tablet 50 mg PO BID Qty: 120 0RF furosemide [Lasix] 20 mg tablet 20 mg PO DAILY@1630 PRN (Reason: edema) Qty: 90 0RF furosemide [Lasix] 40 mg tablet 40 mg PO DAILY Qty: 90 0RF fluticasone propionate 50 mcg/actuation spray,suspension 1 spray intranasal BID atorvastatin 40 mg Tablet 40 mg PO BEDTIME acetaminophen 325 mg Tablet 650 mg PO BEDTIME MDD 3 Grams in 24 hrs PRN (Reason: Elevated Temps) melatonin 3 mg Tablet 3 mg PO BEDTIME PRN (Reason: Insomnia) clopidogrel 75 mg Tablet 75 mg PO DAILY famotidine 20 mg Tablet 20 mg PO DAILY Eliquis 5 mg Tablet 5 mg PO BID Qty: 20 0RF Discharge Orders: Discharge Order (Routine); Ordered 09/13/24 Ordered By: Jim Lerma Diet: Advance to usual diet Activity on Discharge: As tolerated Stand Alone Forms: Patient Portal Discharge page Print Language: South Korean Care Plan Goals: Recovery from COVID and CHF. Health Concerns: COVID Failure Plan of Treatment: Take dexamethasone as recommended and follow up with your primary care doctor within a week Stay in isolation if you are having symptoms of covid such as cough, fever and use mask in puplic for at least next 5 days Assessment: see above Discharge Date/Time: 09/13/24 11:46
[2024-09-13] MEDS: carvediloL 6.25 MG TABLET PO (08:56)
[2024-09-13] MEDS: Famotidine 20 MG TABLET PO (08:56)
[2024-09-13] MEDS: Clopidogrel Bisulfate 75 MG TABLET PO (08:56)
[2024-09-13] MEDS: Fluticasone Propionate Nasal 16 GM SPRAY 1 SPRAY NOSTRIL-B (08:56)
[2024-09-13] MEDS: Amiodarone HCL 200 MG TABLET PO (08:56)
[2024-09-13] MEDS: 0.9 % Sodium Chloride Flush 3 ML SYRINGE IVFLUSH (08:57)
[2024-09-13] MEDS: Apixaban 5 MG TABLET PO (08:57)
[2024-09-13] MEDS: hydrALAZINE HCl 50 MG TABLET PO (08:57)
[2024-09-13] MEDS: dexAMETHasone 6 MG TABLET PO (08:57)
[2024-09-13] MEDS: Isosorbide Dinitrate 5 MG TABLET PO (08:57)
[2024-09-13 09:32] LABS: Anion Gap 16 (12-20); Blood Urea Nitrogen 31 mg/dL (9-16); Calcium 8.3 mg/dL (8.4-10.2); Carbon Dioxide 29 mmol/L (22-29); Chloride 104 mmol/L (96-108); Creatinine Clr Calc Pharmacy 47.5; Estimated Glomerular Filt Rate 38; Glucose Random 117 mg/dL (60-115); Sodium 145 mmol/L (135-145)
--- NOTE | 2024-09-13 10:12 | MHC.CM.PN ---
PT MEDICALLY CLEARED TO DC HOME SELF-CARE, NO SERVICES ORDERED, PT'S FOR TRANSPORT
== END 2024-09-13 11:46 | disposition home or self-care (01) | DRG 177 ==
LOC: HO.ED 22:17 → HO.EDOVER 22:21 → HO.IMC 22:57
PROVIDERS: Admitting Provider Student in an Organized Health Care Education/Training Program; Emergency Provider Emergency Medicine; PCP Internal Medicine; Visit Provider Internal Medicine
DX: U07.1 COVID-19 (principal); I50.23 Acute on chronic systolic (congestive) heart failure; J96.01 Acute respiratory failure with hypoxia; I13.0 Hypertensive heart and chronic kidney disease with heart failure and stage 1 through stage 4 chronic kidney disease, or unspecified chronic kidney disease; I48.19 Other persistent atrial fibrillation; I25.10 Atherosclerotic heart disease of native coronary artery without angina pectoris; E78.5 Hyperlipidemia, unspecified; N18.32 Chronic kidney disease, stage 3b; K21.9 Gastro-esophageal reflux disease without esophagitis; Z95.810 Presence of automatic (implantable) cardiac defibrillator; Z87.891 Personal history of nicotine dependence; Z86.74 Personal history of sudden cardiac arrest; Z79.01 Long term (current) use of anticoagulants; Z79.02 Long term (current) use of antithrombotics/antiplatelets; Z79.51 Long term (current) use of inhaled steroids; Z79.899 Other long term (current) drug therapy
CPT/HCPCS: 36415; 71045; 80048; 80076; 82803; 83605; 83880; 84484; 85025; 85610; 87040; 87502; 87635; 93005; 93306; 99285; J0456; J0696; J1100; J1940; J2060; J8540; Q9957

== ENCOUNTER → 2024-09-11 19:30 | Outpatient (BNV) | payer MEDICARE, SELFPAY | PROVIDERS: Admitting Provider Student in an Organized Health Care Education/Training Program; Emergency Provider Emergency Medicine; PCP Internal Medicine; Visit Provider Internal Medicine | DX: R94.31 Abnormal electrocardiogram [ECG] [EKG] (principal); R06.02 Shortness of breath | CPT/HCPCS: 93010 ==

== ENCOUNTER 2024-09-11 22:07 | Outpatient (BNV) | payer MEDICARE, SELFPAY | END 2024-09-13 07:00 | PROVIDERS: Admitting Provider Student in an Organized Health Care Education/Training Program; Emergency Provider Emergency Medicine; PCP Internal Medicine; Visit Provider Internal Medicine Cardiovascular Disease | DX: I35.8 Other nonrheumatic aortic valve disorders (principal); I34.81 Nonrheumatic mitral (valve) annulus calcification; I27.20 Pulmonary hypertension, unspecified | CPT/HCPCS: 93306 ==

== ENCOUNTER → 2024-09-11 22:07 | Outpatient (BNV) | payer MEDICARE, SELFPAY | PROVIDERS: Admitting Provider Student in an Organized Health Care Education/Training Program; Emergency Provider Emergency Medicine; PCP Internal Medicine; Visit Provider Student in an Organized Health Care Education/Training Program | DX: U07.1 COVID-19 (principal); I50.9 Heart failure, unspecified | CPT/HCPCS: 99223; 99232; 99239 ==

== ENCOUNTER 2024-10-08 12:47 | Outpatient (AMB) | payer MEDICARE, SELFPAY ==
[2024-10-08 13:10] VITALS: BP 124/62; PULSE 77; BMI 39.1
--- NOTE | 2024-10-08 13:10 | A.OFFVIS_ITS ---
Vital Signs 10/08/24 13:10 Height 5 ft 9 in Weight 264 lb 8.875 oz BMI 39.1 BP 124/62 Blood Pressure Location Lt brachial Position Sitting Pulse 77 Pulse Source Monitor Intake Visit Reasons: following up [place] [facility] [place] Allergies No Known Allergies [No Known Allergies*] Allergy (Verified 09/11/24 19:35) Medication List - Last Reconciled 10/08/24 by Pao Plata, [employer]IVER-C amiodarone 200 mg PO BID apixaban (Eliquis) 5 mg PO BID atorvastatin 40 mg PO BEDTIME carvedilol 6.25 mg See Protocol PO BID clopidogrel 75 mg PO DAILY famotidine 20 mg PO DAILY furosemide (Lasix) 40 mg PO DAILY hydralazine 50 mg (2 x 25 mg) PO BID isosorbide dinitrate 5 mg See Protocol PO BID HPI HPI following up after c dc: Details: Aaron is a 74-year-old male with past medical history of hypertension, hyperlipidemia, chronic kidney disease, CVA, VFib arrest 03/2024, status post ICD placement, CAD/[place], ischemic cardiomyopathy, atrial flutter who has been admitted to [facility] 3 times in the last 3 months for increased shortness of breath and treated for decompensated heart failure. His medications have been adjusted, hydralazine, Isordil, Jardiance added. His diuretic was increased on last discharge. Had been followed by [facility] cardiology and now wants to follow with our office as he lives in [place]. Today he reports that he has been doing well since his last discharge on 09/13/2024. He has been monitoring his weight daily at home and finds that it has been stable. He is denying shortness of breath with activity. He sleeps with 2 pillows which is his norm. No cough or recent illness. He does have some chronic mild swelling in his left lower extremity but not in the right. Not having any chest discomfort at rest or with activity. He admits to being mostly sedentary and just doing things around the house. He is not engage in any routine exercise. He has not been having any heart palpitations, lightheadedness, presyncope, syncope, no falls. He has been taking all meds as directed. His is present. She reports that he follows a low-salt diet. His monitor for his ICD has been near his living room chair. 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 COPD (chronic obstructive pulmonary disease) Surgical History S/P ICD (internal cardiac defibrillator) procedure Social History Household Members: Spouse Household Members Other:: Housing: Apartment Do you presently have visiting nurse or other home services: No (Stopped services a 2 weeks ago) Patient Tobacco Use Status: Former Tobacco user e-Cigarette/Vaping Use: Never Used Second Hand Smoke Exposure: No Advance Directives Date on File: 09/12/24 service: No Review of Systems Const All systems reviewed & are unremarkable except as noted in HPI and below Denies weakness ENT Denies dizziness Card Details: doing only light activities Denies chest pain, Denies chest pain with activity, Denies syncope, Denies rapid heart rate, Denies pedal edema, Denies edema, Denies leg edema, Denies lightheadedness, Denies palpitations, Denies dyspnea, Denies dyspnea on exertion and Denies orthopnea Resp Details: sleeps with 2 pillows Denies cough, Denies dyspnea and Denies dyspnea on exertion GI Denies hematochezia and Denies change in stool character Musc Denies abnormal gait, Denies muscle cramps, Denies muscle weakness, Denies numbness, Denies radiating pain into limb and Denies tingling Neuro Denies abnormal gait, Denies dizziness, Denies syncope, Denies numbness, Denies tingling and Denies weakness Endo Denies palpitations Physical Exam Vital Signs: Last Vital Signs Pulse 77 10/08/24 13:10 BP 124/62 10/08/24 13:10 BMI result Body Mass Index 39.1 Const General: cooperative, healthy appearing, comfortable and no acute distress Orientation/consciousness: patient oriented x3 Neck Neck: Yes normal visual inspection Resp Effort & Inspection: normal respiratory effort Auscultation: clear to auscultation bilaterally, no crackles, no rales, no rhonchi and no wheezes Cardio Jugular venous distension: no JVD Rate: regular rate Rhythm: regular rhythm Heart sounds: S1 normal heart sound present, S2 normal heart sound present, no murmurs and no rubs Neuro General: patient oriented x3 Extrem General: Yes normal to inspection, No no pedal edema and No calf tenderness Psych Appearance: grossly normal Mental Status: mental status grossly normal Speech and movement: Normal speech and movement present Office Procedures Cardiac Device Check Cardiac Device Check Details: [employer] Bi V ICD interrogation today shows battery 7.3 years, atrial threshold 0.625 volts at 0.5 milliseconds, RV threshold 0.875 volts at 0.5 milliseconds, LV threshold 1 volt at 0.5 milliseconds, DDD mode, low rate 60, no alerts, settings reviewed, a paced 2.4%, Bi V paced greater than 99%, 80 AF 0% since 06/03/2024 [id number] Cardiac Device Check, multi lead implantable defibrillator Procedure code (CPT) selection complete EKG Details: Today, read by me, atrial sense, ventricular paced rhythm, rate 77 [id number], Complete Assessment & Plan Assessment & Plan (1) Coronary artery disease: Code(s): I25.10 - Atherosclerotic heart disease of [place] coronary artery without angina pectoris Category: Medical Plan: VFib arrest March 2024 with successful resuscitation. He is found to have anterior STEMI. Cardiac catheterization showed mid [employer]AIRMAN of the LAD with minimal collaterals, left circumflex 70% proximal stenosis, RCA proximal [employer]AIRMAN. Notes indicate he could not be revascularized surgically. Echocardiogram initially showed EF 30-35% with wall motion abnormalities. He underwent Bi V ICD was placement. He had been following with [facility] cardiology but now states he wants to follow with our office. He was seen by Dr. Salomon during an June 2024 [facility] admission. Last echo in our system done 09/13/2024 shows EF 30-35%, mid anterior lateral hypokinetic, mid anterior septal, mid inferior lateral akinetic, left atrium severely dilated, mild pulmonary hypertension. He has had heart failure admissions. His medications have been increased on subsequent admissions. He is currently on hydralazine 50 mg b.i.d., Isordil 5 mg b.i.d., Jardiance and carvedilol for neurohormonal modulation. He is not on Marlo or Arb due to chronic kidney disease. He is not on aspirin as he is on Eliquis. He is on Plavix. Today he denies any anginal symptoms. He has been mostly sedentary and does only light activities around the house. Signs and symptoms of angina reviewed with him. Continue with current med management. (2) Ischemic cardiomyopathy: Code(s): I25.5 - Ischemic cardiomyopathy Category: Medical Plan: History of ischemic cardiomyopathy since his recent [place]. most recent echo as above. He does have a Bi V ICD in place and interrogation today shows he is Bi V pacing greater than 99%. On exam he does not appear fluid overloaded. He is watching his weight daily at home and reports that it is stable. He is not using extra salt in his diet. He is currently taking Lasix 40 mg in the a.m. and 20 mg in the p.m. 3 times weekly. Informed patient and that if he gains more than 3 lb in a day or 5 lb in a week he is to increase his p.m. Lasix to 20 mg daily until his weight is back to baseline. Labs done on 09/13/2024 showed creatinine 1.76 which is similar to his prior values. Signs and symptoms of heart failure reviewed with him. Cardiology follow-up in 3 months, sooner if needed. (3) History of cardiac arrest: Comment: March 2024 Code(s): Z86.74 - Personal history of sudden cardiac arrest Category: Medical Plan: As above (4) Biventricular ICD (implantable cardioverter-defibrillator) in place: Code(s): Z95.810 - Presence of automatic (implantable) cardiac defibrillator Category: Medical Plan: [employer] Bi V ICD in place. Functioning normally on interrogation today. Battery 7 years. Will request transfer to our remote clinic. He has been having his remote monitor near his chair in the living room. Instructed them to will bit to his bedside. Next office interrogation due in 6 months. (5) Hypertension: Code(s): I10 - Essential (primary) hypertension Category: Medical Plan: Blood pressure normal at this time. Meds reviewed and no changes. (6) Paroxysmal atrial flutter: Code(s): I48.92 - Unspecified atrial flutter Category: Medical Plan: Notes indicate history of paroxysmal atrial flutter. EKG today is showing atrial sensed, ventricular paced rhythm. He has not felt any heart palpitations. His device interrogation shows no AT/AF since 06/03/2024. Continue Eliquis for anticoagulation. Continue carvedilol for heart rate control. (7) Hospital discharge follow-up: Code(s): Z09 - Encounter for follow-up examination after completed treatment for conditions other than malignant neoplasm Category: Medical Plan: As above Plan Time spent on chart review, documentation, interview and assessment Medications: Discontinued furosemide (Lasix) Discontinued Reason: Patient no longer taking 20 mg PO DAILY@1630 PRN 90 tabs 0RF edema dexamethasone next dose tomorrow morning Discontinued Reason: Patient no longer taking 6 mg PO DAILY 4 tabs 0RF Coding Level of Care Code Est Pt Level 4 (09650) Complex EM visit Add On G2211 Diagnoses Coronary artery disease I25.10 Ischemic cardiomyopathy I25.5 History of cardiac arrest Z86.74 Biventricular ICD (implantable cardioverter-defibrillator) in place Z95.810 Hypertension I10 Paroxysmal atrial flutter I48.92 Hospital discharge follow-up Z09 CPT Codes Cardiac Device Check - Cardiac Device 6: 73036-UD Cardiac Device Check, multi lead implantable defibrillator ([id number]) EKG - CPT: 87770-[id number], Complete ([id number]) Time Spent (min) 36
--- OUTSIDE RECORDS SUMMARY | 2024-10-08 15:16 | XMS_ITS | Continuity of Care Document ---
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 Name Role Phone Not on Staff, PCP Primary Care Physician Unavail able Encounter [facility] Date(s): 06/11/24 - 10/02/24 [facility] [address] [place] [id number]- Attending Physician: Ana M Curiel Admitting Physician: Ana M Curiel Encounter Type: Pre-OutPatient One Time Allergies, Adverse Reactions, Alerts No Known Allergies Medications amiodarone 200 mg oral tablet 200 mg, 1, tablet, By Mouth, Daily, # 30 tablet, Refills 0, Maintenance, 05/10/24 9:55:00 AM EDT, Partial fill upon patient request if the prescription is for a schedule II opioid drug. Start Date: 05/10/24 Status: Ordered Quantity: 30.0 Unit: tablet Repeat number: 1 clopidogrel 75 mg oral tablet 75 mg, By Mouth, Daily, Refills 0, Maintenance, 04/09/24 1:27:00 PM EDT, Partial fill upon patient request if the prescription is for a schedule II opioid drug. Start Date: 04/09/24 Status: Ordered Repeat number: 1 Eliquis 5 mg oral tablet 1 tablet = 5 mg, By Mouth, 2 times a day, # 60 tablet, 5 Refills, Maintenance, 05/10/24 9:55:00 AM EDT, Tablet, Partial fill upon patient request if the prescription is for a schedule II opioid drug. Start Date: 05/10/24 Status: Ordered Quantity: 60.0 Unit: tablet Repeat number: 1 famotidine 20 mg oral tablet 20 mg, By Mouth, Daily, Refills 0, Maintenance, 04/09/24 1:27:00 PM EDT, Partial fill upon patient request if the prescription is for a schedule II opioid drug. Start Date: 04/09/24 Status: Ordered Repeat number: 1 furosemide 20 mg oral tablet 20 mg, 1, tablet, By Mouth, 2 times a day, Refills 0, Maintenance, 06/10/24 11:17:00 AM EDT, Partialfill upon patient request if the prescription is for a schedule II opioid drug. Start Date: 06/10/24 Status: Ordered Repeat number: 1 hydrALAZINE 25 mg oral tablet 25 mg, 1, tablet, By Mouth, 2 times a day, # 60 tablet, Refills 5, Tot. Refills 5, Maintenance, 05/17/24 3:16:00 PM EDT, Route to Pharmacy Electronically, [facility], Partial fill upon patient request if the prescription is for a schedule II opioid drug., 172, cm, 05/10/24 11:03:00 EDT, Height, 110, kg, 03/25/24 10:18:00 EDT, Dry Weight Start Date: 05/17/24 Status: Ordered Quantity: 60.0 Unit: tablet Repeat number: 6 Lipitor 40 mg oral tablet = 40 mg, By Mouth, Daily at bedtime, 0 Refills, Maintenance, 04/09/24 1:27:00 PM EDT, Tablet, Partial fill upon patient request if the prescription is for a schedule II opioid drug. Start Date: 04/09/24 Status: Ordered Repeat number: 1 melatonin 3 mg oral tablet = 6 mg, By Mouth, Daily at bedtime, 0 Refills, Maintenance, 04/09/24 1:28:00 PM EDT, Tablet, Partialfill upon patient request if the prescription is for a schedule II opioid drug. Start Date: 04/09/24 Status: Ordered Repeat number: 1 metoprolol 25 mg oral tablet 25 mg, 1, tablet, By Mouth, 2 times a day, Refills 0, Maintenance, 05/10/24 9:54:00 AM EDT, Partial fill upon patient request if the prescription is for a schedule II opioid drug. Start Date: 05/10/24 Status: Ordered Repeat number: 1 sodium bicarbonate 650 mg oral tablet 1 tablet = 650 mg, By Mouth, 4 times a day, 0 Refills, Maintenance, 05/10/24 9:54:00 AM EDT, Partialfill upon patient request if the prescription is for a schedule II opioid drug. Start Date: 05/10/24 Status: Ordered Repeat number: 1 Problem List Condition Confirmation Course Effective Dates Status H ealth Status Informant History of hyperlipidemia Confirmed Active Obese class II Confirmed Active Social History Social History Type Response Smoking Status Former smoker, quit more than 30 days ago entered on: 06/10/24 Sex Sex Representation Male (finding) Patient Care team information Care Team Personnel Name: Anel Bradley RN Position: [facility] RN Supv Member Role: Primary Care Nurse Name: Courtney Pina RN Position: [facility] RN Member Role: Primary Care Nurse Name: Pia Rudd RN Position: [facility] RN Supv Member Role: Primary Care Nurse Name: Meche Bynum RN Position: [facility] AMB Nurse Member Role: Primary Care Nurse Name: Andria Keita RN Position: [facility] RN Member Role: Primary Care Nurse Name: Urszula Carednas NP Position: [facility] Associate Professional Member Role: [employer] Provider Address: [address] [place], [place] [address] [address] Telecom: Name: Luis Eduardo Mcintosh MD Position: [facility] Renal MD Member Role: [employer] Physician Address: [address] [place], [place] [address] [facility] [address] Telecom: Name: Jose Alberto Roper RN Position: [facility] RN Member Role: Primary Care Nurse Name: Lizandro Mckeon RN Position: [facility] RN Member Role: Primary Care Nurse Name: Not on Staff, PCP Position: [facility] Physician (General Medicine) Member Role: PCP Name: Chris Barksdale RN Position: [facility] RN Member Role: Primary Care Nurse Care Team Related Persons Name: CLAUDIODURAN Name: UZMA SUAREZ Insurance Providers Guarantor name: [employer] Health Plan Information #: 1 Payer: [employer] [facility] Member Number: [id number] Policy Number: NA Group Number: [id number] Health Plan Information #: 2 Payer: [employer] [facility] Member Number: [id number] Policy Number: NA Group Number: [id number]
== END 2024-10-08 14:00 | disposition home or self-care (01) ==
PROVIDERS: PCP Internal Medicine; Visit Provider Nurse Practitioner Family
DX: I25.10 Atherosclerotic heart disease of native coronary artery without angina pectoris (principal); I25.5 Ischemic cardiomyopathy; Z86.74 Personal history of sudden cardiac arrest; Z95.810 Presence of automatic (implantable) cardiac defibrillator; I10 Essential (primary) hypertension; I48.92 Unspecified atrial flutter; Z09 Encounter for follow-up examination after completed treatment for conditions other than malignant neoplasm
CPT/HCPCS: 93010; 93284; 99214; G2211

== ENCOUNTER → 2024-10-08 12:47 | Outpatient (BNVA) | payer MEDICARE, SELFPAY | PROVIDERS: PCP Internal Medicine; Visit Provider Nurse Practitioner Family | DX: Z09 Encounter for follow-up examination after completed treatment for conditions other than malignant neoplasm (principal); Z45.02 Encounter for adjustment and management of automatic implantable cardiac defibrillator; I25.10 Atherosclerotic heart disease of native coronary artery without angina pectoris; I25.5 Ischemic cardiomyopathy; I10 Essential (primary) hypertension; I48.92 Unspecified atrial flutter; Z86.74 Personal history of sudden cardiac arrest | CPT/HCPCS: 93005; 99212 ==

== ENCOUNTER → 2024-10-22 23:59 | Outpatient (BNV) | payer MEDICARE, SELFPAY ==
--- NOTE | 2024-10-27 11:06 | MHC.OFFVIS ---
Intake Visit Reasons: Remote device ck-St [facility]ira Allergies No Known Allergies [No Known Allergies*] Allergy (Verified 09/11/24 19:35) [facility] Medical History (Updated 10/08/24 @ 18:13 by Pao Plata NP-C) Biventricular ICD (implantable cardioverter-defibrillator) in place Paroxysmal atrial flutter Coronary artery disease Ischemic cardiomyopathy CKD stage 3b, GFR 30-44 ml/min Atrial flutter History of cardiac arrest Complete heart block Ventilator associated pneumonia STEMI (ST elevation myocardial infarction) Hypertension Hx of residential use of blood thinners COPD (chronic obstructive pulmonary disease) Surgical History S/P ICD (internal cardiac defibrillator) procedure Social History Household Members: Spouse Household Members Other:: Housing: Apartment Do you presently have visiting nurse or other home services: No (Stopped services a 2 weeks ago) Patient Tobacco Use Status: Former Tobacco user e-Cigarette/Vaping Use: Never Used Second Hand Smoke Exposure: No Advance Directives Date on File: 09/12/24 service: No Office Procedures Cardiac Device Check Cardiac Device Check Details: 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 Battery life 7.2 years. Stable lead impedance and thresholds. DDD mode. Bi V pacing more than 99%. A paced 2.4%. No new alerts. [id number] Cardiac Device Check, multi lead implantable defibrillator Procedure code (CPT) selection complete Assessment & Plan Assessment & Plan (1) Biventricular ICD (implantable cardioverter-defibrillator) in place: Code(s): Z95.810 - Presence of automatic (implantable) cardiac defibrillator Category: Medical Plan Orders: Orders AMB Cardiac Device Follow-up 10/22/24 Z95.810 - Presence of automatic (implantable) cardiac defibrillator Coding Level of Care Code Procedure Only Diagnoses Biventricular ICD (implantable cardioverter-defibrillator) in place Z95.810 CPT Codes Cardiac Device Check - Cardiac Device 6: 84534-HR Cardiac Device Check, multi lead implantable defibrillator ([id number])
== END ==
PROVIDERS: PCP Internal Medicine; Visit Provider Internal Medicine Cardiovascular Disease
DX: Z45.02 Encounter for adjustment and management of automatic implantable cardiac defibrillator (principal)
CPT/HCPCS: 93295

== ENCOUNTER 2024-12-13 08:34 | Inpatient (IN) | payer MEDICARE, SELFPAY ==
--- NOTE | ~2024-12-13 | XR_ITS ---
EXAMINATION: XR CHEST 1 VIEW HISTORY: SOB COMPARISON: Comparison is made with the prior examination dated 09/11/2024. FINDINGS: A single AP portable view of the chest performed at 9:38 AM is submitted. A left subclavian dual-chamber pacemaker is unchanged in position. Again seen is a moderate left pleural effusion. Underlying atelectasis or pneumonia is not excluded. There is scarring in the right midlung zone. The heart is normal in size. The aorta is calcified. The bones are intact. XR/XR chest 1V IMPRESSION: Moderate left pleural effusion. Underlying atelectasis or pneumonia is not excluded. Electronically signed by: Stevenson Raymundo MD 12/13/2024 09:56 AM EDT
--- NOTE | ~2024-12-13 | US_ITS ---
EXAMINATION: US ABDOMEN LIMITED CLINICAL INFORMATION: Ascites check. Abdominal swelling.. COMPARISON: None available. TECHNIQUE: Real-time time ultrasound in all 4 quadrants of the abdomen using grayscale technique. FINDINGS: No free fluid in the upper and lower quadrants of the abdominal cavity. US/US abdomen limited IMPRESSION: Negative for ascites. Electronically signed by: Angel Gonzalez MD 12/17/2024 12:41 PM EDT
--- NOTE | ~2024-12-13 | XR_ITS ---
EXAMINATION: XR CHEST 4 OR MORE VIEWS HISTORY: f/u pleural effusion COMPARISON: There is an is made with the prior examination dated 12/13/2024. FINDINGS: PA, lateral, and left lateral decubitus views of the chest are submitted. A left subclavian dual-chamber pacemaker is unchanged in position. There is a moderate left pleural effusion which appears to be free-flowing although the left lateral decubitus views are somewhat limited. The lungs are clear. There is no pneumothorax or pulmonary vascular congestion. The heart is normal in size. The aorta is calcified. There is degenerative disc disease of the spine. XR/XR chest 4 views IMPRESSION: Moderate free-flowing left pleural effusion. Electronically signed by: Stevenson Raymundo MD 12/16/2024 08:17 AM EDT
--- NOTE | ~2024-12-13 | US_ITS ---
EXAMINATION: US SCROTUM CLINICAL INFORMATION: Scrotal swelling.. COMPARISON: None available. TECHNIQUE: A sonogram of the scrotum was performed assessing hsu-scale appearance and color Doppler flow. Spectral Doppler analysis of the arterial and venous flow were performed in the testes bilaterally. FINDINGS: RIGHT: Right testicle measures 4.7 x 3.0 x 3.7 cm, volume 27.4 mL. No focal testicular parenchymal lesions are visualized. Spectral Doppler analysis of the arterial and venous flow is normal in the right testis. Right epididymal head is normal in size. Septated the moderate to large amount of fluid in the scrotal sac. Right epididymal Doppler flow is normal. LEFT: Left testicle measures 4.3 x 2.3 x 3.9 cm, volume 20.5 mL. No focal testicular parenchymal lesions are visualized. Spectral Doppler analysis of the arterial and venous flow is normal in the left testis. Left epididymal head is not identified/not seen. There is moderate amount of septated anechoic fluid. Left epididymal Doppler flow is not identified/not seen. US/US scrotum IMPRESSION: No testicular torsion. Complex septated hydroceles, bilaterally. Electronically signed by: Angel Gonzalez MD 12/17/2024 12:46 PM EDT
[2024-12-13 09:01] VITALS: BP 148/76; PULSE 86; RESP 20; TEMP 36.6; O2SAT 95; BMI 41.3
--- NOTE | 2024-12-13 09:07 | ECG_ITS ---
Test Reason : sob Blood Pressure : */* mmHG Vent. Rate : 83 BPM Atrial Rate : 83 BPM P-R Int : 186 ms QRS Dur : 120 ms QT Int : 436 ms P-R-T Axes : 69 252 40 degrees QTcB Int : 512 ms Atrial-sensed ventricular-paced rhythm Abnormal ECG When compared with ECG of 11-Sep-2024 19:39, Vent. rate has decreased by 27 bpm Referred By: Jesica Madera Electronically Signed By: SHANA MANDUJANO MD
[2024-12-13 15:46] LABS: MANUAL DIFF FLAG NO
[2024-12-13 15:48] LABS: Eosinophils Absolute Auto 0.1 X10*3/uL (0.0-0.4); Eosinophils Percent Auto 1.2 % (0-4); PLT CLUMP 1; SCAN SMEAR FLAG 1
[2024-12-13 15:50] LABS: Basophils Percent Auto 0.7 % (0-2); Hematocrit 40.3 % (42.0-52.0); Imm Gran Abs Auto 0.03 X10*3/uL (0.00-0.03); Imm Gran Pct Auto 0.5 % (0.0-0.4); Lymphocytes Absolute Auto 0.8 X10*3/uL (1.2-4.9); Lymphocytes Percent Auto 14.1 % (20-40); Mean Corpuscular HGB Conc 32.3 g/dl (31.0-36.0); Mean Corpuscular Hemoglobin 29.7 pg (27.0-33.0); Mean Corpuscular Volume 92.2 fL (80.0-98.0); Mean Platelet Volume 9.5 fL (9.4-12.4); Monocytes Absolute Auto 0.5 X10*3/uL (0.1-1.2); Monocytes Percent Auto 9.2 % (2-11); Neutrophils Absolute Auto 4.2 x10*3/uL (2.0-8.3); Neutrophils Percent Auto 74.3 % (45-73); Red Blood Count 4.37 X10*6/uL (4.60-5.80); Red Cell Distribution Width 15.4 % (11.0-16.0)
[2024-12-13 15:51] LABS: Platelet Count 138 X10*3/uL (160-400); White Blood Count 5.7 X10*3/uL (4.8-10.8)
[2024-12-13 16:13] LABS: B Type Natriuretic Peptide 471 pg/mL (<100)
[2024-12-13 16:20] LABS: Alanine Aminotransferase 18 U/L (0-40); Albumin Level 3.9 g/dL (3.5-5.0); Alkaline Phosphatase 133 U/L (39-117); Aspartate Amino Transferase 28 U/L (5-37); Bilirubin Total 0.6 mg/dL (0.0-1.0); Blood Urea Nitrogen 25 mg/dL (9-16); Calcium 8.5 mg/dL (8.4-10.2); Creatinine Clr Calc Pharmacy 51.9; Estimated Glomerular Filt Rate 41; Glucose Random 92 mg/dL (60-115); Total Protein 6.7 g/dL (6.5-8.0)
[2024-12-13 16:25] LABS: Anion Gap 34 (12-20); Carbon Dioxide 7 mmol/L (22-29); Chloride 107 mmol/L (96-108); Sodium 144 mmol/L (135-145)
--- NOTE | 2024-12-13 17:28 | ED_ITS ---
HPI - SOB/Dyspnea General Chief Complaint: Dyspnea Stated Complaint: diff breathing Time Seen by Provider: 12/13/24 17:28 Source: patient Mode of arrival: EMS Limitations: no limitations History of Present Illness ED Provider: Lex Wiseman DO HPI Narrative: 74-year-old male with past medical history of cardiac arrest secondary to NH in March 2024 status post pacemaker, atrial fibrillation on apixaban, COPD with previous tobacco use not on home O2, CKD and CHF on 40 mg of Lasix daily and 60 mg of Lasix on Friday, Friday and Friday presents from home due to progressively worsening shortness of breath and weight gain of 8 lb over the past week despite administering additional doses of 20 mg of Lasix at home. The patient has had a chronic cough with no changes or purulent sputum. He has not had a fever, GI symptoms, chest pain or dizziness. He does have mild shortness of breath at rest but significantly worsens with any bit of exertion Related Data Home Medications ?Medication ?Instructions ?Recorded ?Confirmed atorvastatin 40 mg tablet 40 mg PO BEDTIME 04/19/24 10/08/24 clopidogrel 75 mg tablet 75 mg PO DAILY 04/19/24 10/08/24 famotidine 20 mg tablet 20 mg PO DAILY 04/19/24 10/08/24 amiodarone 200 mg tablet 200 mg PO BID 07/01/24 10/08/24 Previous Rx's ?Medication ?Instructions ?Recorded apixaban 5 mg tablet (Eliquis) 5 mg PO BID #20 tabs 04/22/24 carvedilol 3.125 mg tablet 6.25 mg PO BID #60 tabs 07/03/24 hydralazine 25 mg tablet 50 mg (2 x 25 mg) PO BID #120 tabs 07/03/24 isosorbide dinitrate 5 mg tablet 5 mg PO BID #60 tabs 07/03/24 furosemide 20 mg tablet 20 mg PO DAILY PRN edema #90 tabs 12/03/24 furosemide 40 mg tablet (Lasix) 40 mg PO DAILY #90 tabs 12/10/24 Allergies Allergy/AdvReac Type Severity Reaction Status Date / Time No Known Allergies Allergy Verified 12/13/24 09:06 [No Known Allergies*] Review of Systems 2 Review of Systems: Yes all other systems are reviewed and are negative PMFSH Past Medical History Medical History (Updated 12/13/24 @ 21:10 by Lex Wiseman DO) Biventricular ICD (implantable cardioverter-defibrillator) in place Paroxysmal atrial flutter Coronary artery disease Ischemic cardiomyopathy CKD stage 3b, GFR 30-44 ml/min Atrial flutter History of cardiac arrest Complete heart block Ventilator associated pneumonia STEMI (ST elevation myocardial infarction) Hypertension Hx of rn long term care use of blood thinners COPD (chronic obstructive pulmonary disease) Surgical History S/P ICD (internal cardiac defibrillator) procedure Social History Social History Household Members: Spouse Household Members Other:: Housing: Apartment Do you presently have visiting nurse or other home services: No (Stopped services a 2 weeks ago) Patient Tobacco Use Status: Former Tobacco user Smoked in Last 30 Days: No e-Cigarette/Vaping Use: Never Used Second Hand Smoke Exposure: No Use of substances other than those prescribed or required for medical reasons: No Advance Directives: Yes Advance Directives Information Provided: Yes Advance Directives on File: No Advance Directives Date on File: 09/12/24 Do you have a plan to hurt others: No Plan service: No Physical Exam 2 Vital Signs: Vital Signs: Last Vital Signs Temp 98.4 F 12/13/24 18:00 Pulse 85 12/13/24 18:27 Resp 22 H 12/13/24 18:27 BP 186/96 H 12/13/24 18:27 Pulse Ox 93 12/13/24 18:27 O2 Del Method Nasal Cannula 12/13/24 18:27 O2 Flow Rate 2 12/13/24 18:27 BMI result Body Mass Index 41.3 Constitutional: ?Alert, oriented, speaking in full sentences HEENT: ?Normocephalic, atraumatic. ?Moist mucous membranes Eyes: ?PERRL, EOMI Neck: ?Supple, nontender Chest: ?No chest wall tenderness Respiratory: ?Mild increased work of breathing, diminished lung sounds throughout with inspiratory crackles, worse on the left side, 2 to 3+ pitting edema of the bilateral lower extremities Cardio: ?Regular rate and rhythm, no murmur, 2+ radial and DP pulses symmetrically GI: ?Soft, mildly distended but not firm and without fluid wave, nontender Back: ?Normal range of motion, nontender Skin: ?No rash, no lesions Neuro: ?Alert and oriented to person, place and time, moves all 4 extremities, no focal deficits Extremities: ?No swelling or tenderness, full range of motion Psych: ?Calm, alert and cooperative, appropriate behavior Medications Administered Discontinued Medications Generic Name Dose Route Start Last Admin Trade Name Viridiana PRN Reason Stop Dose Admin Furosemide 60 mg 12/13/24 18:11 12/13/24 18:27 Furosemide 100 Mg/10 Ml Vial IVPUSH 12/13/24 18:12 60 mg ONCE ONE Administration Protocol Medical Decision Making Medical Decision Making [facility] Narrative: Patient presenting with signs and symptoms consistent with a CHF exacerbation. Although he has no hypoxia at home or here and labs are reassuring, given his chest x-ray and clinical findings, going to administer 60 mg IV furosemide here at suspect he will need additional IV furosemide in the hospital. He also has this chronic left-sided pleural effusion which appears somewhat worse. May be amenable to thoracentesis if this has a benefit going forward. Do not suspect ACS today but we will further evaluate with troponin. No clinical symptoms consistent with COPD exacerbation or pneumonia. Labs reviewed and show no leukocytosis, baseline mild anemia, baseline mild thrombocytopenia, low bicarb of 7 which is likely a lab error, unremarkable electrolytes, baseline CKD, unremarkable LFTs, and chronically elevated BNP, currently 471. Patient is starting to diurese. He was placed on 2 L of low-flow supplemental oxygen secondary to mild hypoxia at 88% and is saturating at 95% at this time. I reassessed him multiple times and he has no deterioration in his respiratory status and appears well. His bicarb repeat was still 7 but his venous blood gas showed a bicarb of 32 which is much more consistent with his clinical picture and I do suspect recurrent lab error. He has a mild elevation in troponin which is chronic and likely related to CKD. Case reviewed again with hospitalist who agrees with plan for admission for further diuresis. Admission/Observation Consideration of admission/observation: Escalation of care including admission/observation considered Lab Data [facility] Lab Attestation statement: I reviewed the patient's lab results. 12/13/24 15:41 12/13/24 15:41 Labs: Lab Results 12/13/24 12/13/24 12/13/24 Range/Units 15:41 19:56 20:16 WBC 5.7 (4.8-10.8) X10*3/uL RBC 4.37 L (4.60-5.80) X10*6/uL Hgb 13.0 L (14.0-18.0) g/dl Hct 40.3 L (42.0-52.0) % MCV 92.2 (80.0-98.0) fL MCH 29.7 (27.0-33.0) pg MCHC 32.3 (31.0-36.0) g/dl RDW 15.4 (11.0-16.0) % Plt Count 138 L D (160-400) X10*3/uL MPV 9.5 (9.4-12.4) fL Immature Gran % (Auto) 0.5 H (0.0-0.4) % Neut % (Auto) 74.3 H (45-73) % Lymph % (Auto) 14.1 L (20-40) % [place] % (Auto) 9.2 (2-11) % Eos % (Auto) 1.2 (0-4) % Baso % (Auto) 0.7 (0-2) % Lymph # (Auto) 0.8 L (1.2-4.9) X10*3/uL [place] # (Auto) 0.5 (0.1-1.2) X10*3/uL Eos # (Auto) 0.1 (0.0-0.4) X10*3/uL Baso # (Auto) 0.0 (0.0-0.2) X10*3/uL Abs Immat Gran (auto) 0.03 (0.00-0.03) X10*3/uL Absolute Neuts (auto) 4.2 (2.0-8.3) x10*3/uL Absolute Nucleated RBC 0.000 (0.0-0.012) X10*3/uL Nucleated RBC % (auto) 0.0 (0.0-0.2) /100WBC VBG pH (7.32-7.43) VBG pCO2 mmHg VBG pO2 mmHg VBG HCO3 (22-26) mmol/L VBG O2 Saturation % VBG Base Excess mmol/L Sodium 144 (135-145) mmol/L Potassium 4.0 (3.3-5.1) mmol/L Chloride 107 (96-108) mmol/L Carbon Dioxide 7 L* D (22-29) mmol/L Anion Gap 34 H (12-20) BUN 25 H (9-16) mg/dL Creatinine 1.67 H (0.5-1.4) mg/dL Estim Creat Clear Calc 51.9 Estimated GFR 41 Random Glucose 92 (60-115) mg/dL Lactic Acid 1.6 (0.5-2.0) mmol/L Calcium 8.5 (8.4-10.2) mg/dL Total Bilirubin 0.6 (0.0-1.0) mg/dL AST 28 (5-37) U/L ALT 18 (0-40) U/L Alkaline Phosphatase 133 H (39-117) U/L Troponin I High Sens 18.9 (<3.5-35.0) ng/L B-Natriuretic Peptide 471 H (<100) pg/mL Total Protein 6.7 (6.5-8.0) g/dL Albumin 3.9 (3.5-5.0) g/dL Urine Color Urine Appearance Urine pH (5.0-9.0) Ur Specific [place] (1.005-1.025) Urine Protein (Neg-Trace) mg/dL Urine Glucose (UA) (Negative) mg/dL Urine Ketones (Negative) mg/dL Urine Blood (Negative) Urine Nitrite (Negative) Ur Leukocyte Esterase (Negative) Urine RBC (0-2) /HPF Urine WBC (0-5) /HPF Ur Squamous Epith Cells (0-2) /HPF Urine Bacteria (None Seen) Hyaline Casts (0-2) /LPF Influenza Type A (PCR) NEGATIVE (Negative) Influenza Type B (PCR) NEGATIVE (Negative) RSV RNA Qual (PCR) NEGATIVE (Negative) SARS-CoV-2 RNA (RT-PCR) NEGATIVE (Negative) 12/13/24 12/13/24 Range/Units 20:25 20:35 WBC (4.8-10.8) X10*3/uL RBC (4.60-5.80) X10*6/uL Hgb (14.0-18.0) g/dl Hct (42.0-52.0) % MCV (80.0-98.0) fL MCH (27.0-33.0) pg MCHC (31.0-36.0) g/dl RDW (11.0-16.0) % Plt Count (160-400) X10*3/uL MPV (9.4-12.4) fL Immature Gran % (Auto) (0.0-0.4) % Neut % (Auto) (45-73) % Lymph % (Auto) (20-40) % [place] % (Auto) (2-11) % Eos % (Auto) (0-4) % Baso % (Auto) (0-2) % Lymph # (Auto) (1.2-4.9) X10*3/uL [place] # (Auto) (0.1-1.2) X10*3/uL Eos # (Auto) (0.0-0.4) X10*3/uL Baso # (Auto) (0.0-0.2) X10*3/uL Abs Immat Gran (auto) (0.00-0.03) X10*3/uL Absolute Neuts (auto) (2.0-8.3) x10*3/uL Absolute Nucleated RBC (0.0-0.012) X10*3/uL Nucleated RBC % (auto) (0.0-0.2) /100WBC VBG pH 7.31 L (7.32-7.43) VBG pCO2 63 mmHg VBG pO2 38 mmHg VBG HCO3 32 H (22-26) mmol/L VBG O2 Saturation 47.0 % VBG Base Excess 4.1 mmol/L Sodium (135-145) mmol/L Potassium (3.3-5.1) mmol/L Chloride (96-108) mmol/L Carbon Dioxide (22-29) mmol/L Anion Gap (12-20) BUN (9-16) mg/dL Creatinine (0.5-1.4) mg/dL Estim Creat Clear Calc Estimated GFR Random Glucose (60-115) mg/dL Lactic Acid (0.5-2.0) mmol/L Calcium (8.4-10.2) mg/dL Total Bilirubin (0.0-1.0) mg/dL AST (5-37) U/L ALT (0-40) U/L Alkaline Phosphatase (39-117) U/L Troponin I High Sens (<3.5-35.0) ng/L B-Natriuretic Peptide (<100) pg/mL Total Protein (6.5-8.0) g/dL Albumin (3.5-5.0) g/dL Urine Color Yellow Urine Appearance Clear Urine pH 6.0 (5.0-9.0) Ur Specific [place] 1.010 (1.005-1.025) Urine Protein Trace (Neg-Trace) mg/dL Urine Glucose (UA) Negative (Negative) mg/dL Urine Ketones Negative (Negative) mg/dL Urine Blood Negative (Negative) Urine Nitrite Negative (Negative) Ur Leukocyte Esterase Negative (Negative) Urine RBC 0-2 (0-2) /HPF Urine WBC 0-5 (0-5) /HPF Ur Squamous Epith Cells 0-2 (0-2) /HPF Urine Bacteria None Seen (None Seen) Hyaline Casts 0-2 (0-2) /LPF Influenza Type A (PCR) (Negative) Influenza Type B (PCR) (Negative) RSV RNA Qual (PCR) (Negative) SARS-CoV-2 RNA (RT-PCR) (Negative) Independent Interpretation I performed an independent interpretation of an: EKG (Atrial sensed ventricular paced rhythm at a rate of 83 beats per minute, no ST segment changes, unremarkable intervals otherwise, compared to prior dated 09/11/2024 there are no significant changes. ) and Plain X-Ray Interpretation: Chest x-ray per my independent interpretation: There is a [id number] left-sided pleural effusion which appears chronic compared to prior dated 09/11/2024. Right-sided chest shows patchy infiltrates with a very small effusion and evidence of pulmonary edema. Critical Care Time Critical Care Time Critical Care Time: Yes Total Critical Care Time: 30 Attestation: Lex Wiseman DO Patient required multiple reassessments due to possible deterioration of airway and respiratory standpoint. Administered IV diuresis, assessed ECG, venous blood gas and chest x-ray Case reviewed with hospitalist. Discharge Plan Discharge Clinical Impression: Acute on chronic congestive heart failure Patient Disposition: Admitted As Inpatient Prescriptions: No Action furosemide 20 mg tablet 20 mg PO DAILY PRN (Reason: edema) Qty: 90 1RF furosemide [Lasix] 40 mg tablet 40 mg PO DAILY Qty: 90 3RF amiodarone 200 mg tablet 200 mg PO BID carvedilol 3.125 mg Tablet 6.25 mg PO BID Qty: 60 0RF Protocol: Hold for SBP/HR < HOLD for SBP < : 90 HOLD for HR < : 60 isosorbide dinitrate 5 mg Tablet 5 mg PO BID Qty: 60 0RF Protocol: Hold for SBP< HOLD for SBP < : 90 hydralazine 25 mg tablet 50 mg PO BID Qty: 120 0RF atorvastatin 40 mg Tablet 40 mg PO BEDTIME clopidogrel 75 mg Tablet 75 mg PO DAILY famotidine 20 mg Tablet 20 mg PO DAILY Eliquis 5 mg Tablet 5 mg PO BID Qty: 20 0RF Print Language: Thai
[2024-12-13 18:00] VITALS: BP 176/90; PULSE 82; RESP 21; TEMP 36.9; O2SAT 87
[2024-12-13 18:27] VITALS: BP 186/96; PULSE 85; RESP 22; O2SAT 93
[2024-12-13] MEDS: Furosemide 100 MG/10 ML VIAL 60 MG IVPUSH (18:27)
--- NOTE | 2024-12-13 20:26 | PC.NURSE ---
Patient is alert and oriented x4, patient denies any pain at present, BP 160/84, MD aware. Patient requested to removed male purewick d/t discomfort from purewick, urinal provided to patient call urbina placed within patient's reach.
[2024-12-13 20:28] LABS: VBG Base Excess 4.1 mmol/L; VBG HCO3 32 mmol/L (22-26); VBG pCO2 63 mmHg; VBG pH 7.31 (7.32-7.43); VBG pO2 38 mmHg
[2024-12-13 20:30] LABS: Venous Blood Gas Refer to POC result
[2024-12-13 20:39] LABS: Lactic Acid 1.6 mmol/L (0.5-2.0)
[2024-12-13 20:46] LABS: Troponin-I High Sensitivity 18.9 ng/L (<3.5-35.0)
[2024-12-13 20:50] LABS: Appearance Urine Clear; Color Urine Yellow; Glucose Urine UA Negative (Negative); Leukocyte Esterase Urine Negative (Negative); Nitrite Urine Negative (Negative); Urine Blood Negative (Negative); Urine Ketones Negative (Negative); Urine Protein Trace mg/dL (Neg-Trace)
[2024-12-13 20:52] LABS: Bacteria Urine None Seen (None Seen); Hyaline Casts Urine 0-2 /LPF (0-2); RBC Urine 0-2 /HPF (0-2); Squamous Epithelial Cell Urine 0-2 /HPF (0-2); WBC Urine 0-5 /HPF (0-5)
[2024-12-13 20:53] LABS: Influenza A PCR NEGATIVE (Negative); Influenza B PCR NEGATIVE (Negative); Resp Syncy Virus RNA Qual PCR NEGATIVE (Negative); SARS COV2 PCR INHOUSE NEGATIVE (Negative)
[2024-12-13 21:06] LABS: Anion Gap 38 (12-20); Beta-Hydroxybutyrate 0.35 mmol/L (0.02-0.27); Blood Urea Nitrogen 25 mg/dL (9-16); Carbon Dioxide 7 mmol/L (22-29); Chloride 106 mmol/L (96-108); Creatinine Clr Calc Pharmacy 51.6; Estimated Glomerular Filt Rate 40; Glucose Random 98 mg/dL (60-115); Sodium 147 mmol/L (135-145)
[2024-12-13 22:41] LABS: ABG Base Excess 2.3 mmol/L; ABG HCO3 26 mmol/L (22-26); ABG pCO2 41 mmHg (32-45); ABG pH 7.42 (7.35-7.45); ABG pO2 88 mmHg (83-108)
[2024-12-13 22:44] VITALS: BP 166/82; PULSE 90; RESP 22; TEMP 36.8; O2SAT 97
--- NOTE | 2024-12-13 23:23 | PM.IMHP ---
History of Present Illness Date of Service: 12/13/24 Attending physician on admission: Johanny Nugent Chief Complaint: SOB Patient is a 74-year-old male with a past medical history significant for CVA, HTN, history VFib cardiac arrest, HFrEF s/p AICD, atrial flutter on Eliquis, CKD 3, and CAD, who presented to the ED due to worsening shortness of breath over the past week with 8 lb weight gain. He reports a cough, nonproductive. No fever, chills, nausea, vomiting, diarrhea, chest pain or dizziness. He experiences dyspnea at rest but worse with exertion. He had been taking additional Lasix on Friday 60 mg, off days taking 40 mg daily which is his regular dose. Review of Systems Constitutional: Constitutional: Denies body ache(s), Denies chills, Denies fatigue, Denies fever(s) and Denies headache(s) Eyes: Eyes: Denies change in vision and Denies photophobia ENT: Denies headache(s), Denies nasal congestion, Denies nasal discharge and Denies sore throat Cardiovascular: Cardiovascular: Denies chest pain, Denies rapid heart rate, Reports leg edema, Denies lightheadedness and Reports dyspnea Respiratory: Respiratory: Reports cough, Reports dyspnea and Denies wheezing Gastrointestinal: Gastrointestinal: Denies diarrhea, Denies nausea and Denies hematemesis Genitourinary: Genitourinary: Denies difficulty urinating, Denies dysuria and Denies urinary urgency Musculoskeletal: Musculoskeletal: Denies back pain and Denies myalgias Integumentary/Breasts: Skin/Breast: Denies rash Neurologic: Denies confusion and Denies headache(s) Psychiatric: Psychiatric: Denies confusion Endocrine: Endocrine: Denies fatigue Hematologic/Lymphatic: Hematologic/Lymphatic: Denies easy bleeding and Denies easy bruising Allergic/Immunologic: Allergic/Immunologic: Denies wheezing [facility] Medical History (Updated 12/13/24 @ 23:40 by Shea Chan PA-C) Morbid obesity with BMI of 40.0-44.9, adult Biventricular ICD (implantable cardioverter-defibrillator) in place Paroxysmal atrial flutter Coronary artery disease Ischemic cardiomyopathy CKD stage 3b, GFR 30-44 ml/min Atrial flutter History of cardiac arrest Complete heart block Ventilator associated pneumonia STEMI (ST elevation myocardial infarction) Hypertension 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 COPD (chronic obstructive pulmonary disease) Functional capacity: uses cane/walker Surgical History S/P ICD (internal cardiac defibrillator) procedure Social History Household Members: Spouse Household Members Other:: Housing: Apartment Do you presently have visiting nurse or other home services: No (Stopped services a 2 weeks ago) Patient Tobacco Use Status: Former Tobacco user Smoked in Last 30 Days: No e-Cigarette/Vaping Use: Never Used Second Hand Smoke Exposure: No Use of substances other than those prescribed or required for medical reasons: No Advance Directives: Yes Advance Directives Information Provided: Yes Advance Directives on File: No Advance Directives Date on File: 09/12/24 Do you have a plan to hurt others: No Plan service: No Narrative: Previous smoker, no alcohol or drug use Meds Allergies Allergy/AdvReac Type Severity Reaction Status Date / Time No Known Allergies Allergy Verified 12/13/24 09:06 [No Known Allergies*] Active Medications: Current Medications Acetaminophen (Acetaminophen 325 Mg Tablet) 650 mg PO Q6H PRN PRN Reason: Pain, Mild 1-3,fever,headache Calcium Carbonate (Calcium Carbonate 750 Mg Tab.Chew) 750 mg PO Q4H PRN PRN Reason: Heartburn Furosemide (Furosemide 100 Mg/10 Ml Vial) 60 mg IVPUSH DAILY [facility]; Protocol Magnesium Hydroxide (Milk Of Magnesia 30 Ml Oral.Susp) 30 ml PO DAILY PRN PRN Reason: Constipation Melatonin (Melatonin 3 Mg Tablet) 6 mg PO BEDTIME PRN PRN Reason: Insomnia Ondansetron HCl (Ondansetron Hcl 4 Mg/2 Ml Vial) 4 mg IVPUSH Q8H PRN PRN Reason: Nausea and Vomiting Sodium Chloride (0.9 % Sodium Chloride Flush 3 Ml Syringe) 3 ml IVFLUSH QSHIFT [facility] Home Medications ?Medication ?Instructions ?Recorded ?Confirmed ?Last Taken ?Type atorvastatin 40 mg tablet 40 mg PO BEDTIME 04/19/24 10/08/24 09/11/24 History clopidogrel 75 mg tablet 75 mg PO DAILY 04/19/24 10/08/24 09/11/24 History famotidine 20 mg tablet 20 mg PO DAILY 04/19/24 10/08/24 09/11/24 History amiodarone 200 mg tablet 200 mg PO BID 07/01/24 10/08/24 09/11/24 History Physical Exam Vital Signs and Narrative: Vital Signs: Last Vital Signs Temp 98.2 F 12/13/24 22:44 Pulse 90 12/13/24 22:44 Resp 22 H 12/13/24 22:44 BP 166/82 H 12/13/24 22:44 Pulse Ox 97 12/13/24 22:44 O2 Del Method Nasal Cannula 12/13/24 22:44 O2 Flow Rate 2 12/13/24 22:44 BMI result Body Mass Index 41.3 General: AOx3, no acute distress Resp: Diminished throughout, crackles bilateral lung bases, no wheezing CVS: regular rate and rhythm, +murmur GI: +BS, NT, no distention Skin: Warm, dry Neuro: Cranial nerves II-XII grossly intact bilaterally. Motor grossly intact bilaterally Extremities: 1+ pitting edema Psych: Appropriate affect Const: General: No confusion Orientation/consciousness: No confusion Eyes: Direct Ophthalmoscopy: No photophobia Neuro: General: No confusion Results Labs 12/13/24 15:41 12/13/24 20:16 Labs: Laboratory Results - last 24 hr 12/13/24 12/13/24 12/13/24 15:41 19:56 20:16 MCV 92.2 MCH 29.7 MCHC 32.3 RDW 15.4 Plt Count 138 L D MPV 9.5 Immature Gran % (Auto) 0.5 H Neut % (Auto) 74.3 H Lymph % (Auto) 14.1 L [place] % (Auto) 9.2 Eos % (Auto) 1.2 Baso % (Auto) 0.7 Lymph # (Auto) 0.8 L [place] # (Auto) 0.5 Eos # (Auto) 0.1 Baso # (Auto) 0.0 Abs Immat Gran (auto) 0.03 Absolute Neuts (auto) 4.2 Absolute Nucleated RBC 0.000 Nucleated RBC % (auto) 0.0 O2 Saturation ABG pH at Pt Temp ABG pCO2 at Pt Temp ABG pO2 at Pt Temp ABG HCO3 ABG Base Excess (Actual) VBG pH VBG pCO2 VBG pO2 VBG HCO3 VBG O2 Saturation VBG Base Excess Anion Gap 34 H 38 H Estim Creat Clear Calc 51.9 51.6 Estimated GFR 41 40 Random Glucose 92 98 Lactic Acid 1.6 Calcium 8.5 9.0 Total Bilirubin 0.6 AST 28 ALT 18 Alkaline Phosphatase 133 H B-Natriuretic Peptide 471 H Total Protein 6.7 Albumin 3.9 Beta-Hydroxybutyrate 0.35 H Urine Color Urine Appearance Urine pH Ur Specific [place] Urine Protein Urine Glucose (UA) Urine Ketones Urine Blood Urine Nitrite Ur Leukocyte Esterase Urine RBC Urine WBC Ur Squamous Epith Cells Urine Bacteria Hyaline Casts Influenza Type A (PCR) NEGATIVE Influenza Type B (PCR) NEGATIVE RSV RNA Qual (PCR) NEGATIVE SARS-CoV-2 RNA (RT-PCR) NEGATIVE 12/13/24 12/13/24 12/13/24 20:25 20:35 22:37 MCV MCH MCHC RDW Plt Count MPV Immature Gran % (Auto) Neut % (Auto) Lymph % (Auto) [place] % (Auto) Eos % (Auto) Baso % (Auto) Lymph # (Auto) [place] # (Auto) Eos # (Auto) Baso # (Auto) Abs Immat Gran (auto) Absolute Neuts (auto) Absolute Nucleated RBC Nucleated RBC % (auto) O2 Saturation 96.0 ABG pH at Pt Temp 7.42 ABG pCO2 at Pt Temp 41 ABG pO2 at Pt Temp 88 ABG HCO3 26 ABG Base Excess (Actual) 2.3 VBG pH 7.31 L VBG pCO2 63 VBG pO2 38 VBG HCO3 32 H VBG O2 Saturation 47.0 VBG Base Excess 4.1 Anion Gap Estim Creat Clear Calc Estimated GFR Random Glucose Lactic Acid Calcium Total Bilirubin AST ALT Alkaline Phosphatase B-Natriuretic Peptide Total Protein Albumin Beta-Hydroxybutyrate Urine Color Yellow Urine Appearance Clear Urine pH 6.0 Ur Specific [place] 1.010 Urine Protein Trace Urine Glucose (UA) Negative Urine Ketones Negative Urine Blood Negative Urine Nitrite Negative Ur Leukocyte Esterase Negative Urine RBC 0-2 Urine WBC 0-5 Ur Squamous Epith Cells 0-2 Urine Bacteria None Seen Hyaline Casts 0-2 Influenza Type A (PCR) Influenza Type B (PCR) RSV RNA Qual (PCR) SARS-CoV-2 RNA (RT-PCR) Imaging Radiologist's Impressions: Impressions Chest X-Ray 12/13/24 09:07 IMPRESSION: Moderate left pleural effusion. Underlying atelectasis or pneumonia is not excluded. Electronically signed by: Stevenson Raymundo MD 12/13/2024 09:56 AM EDT RP Assessment and Plan (1) Acute hypoxic respiratory failure: Status: Acute (2) Acute on chronic congestive heart failure: Qualifiers: Heart failure type: unspecified Qualified Code(s): I50.9 - Heart failure, unspecified Status: Acute (3) Elevated troponin: Status: Chronic (4) Morbid obesity with BMI of 40.0-44.9, adult: Status: Chronic Plan Patient is a 74-year-old male with a past medical history significant for CVA, HTN, history VFib cardiac arrest s/p AICD, HFrEF (EF 35%), atrial flutter on Eliquis, CKD 3, and CAD, who presented to the ED due to worsening shortness of breath over the past week with 8 lb weight gain. Acute hypoxic respiratory failure secondary to acute on chronic congestive heart failure exacerbation - WBC 5.7, no tachycardia or fever, lactic acid normal, no sepsis - chest x-ray with moderate left pleural effusion (chronic but worse), underlying atelectasis or pneumonia is not excluded - BNP 471 - initially bicarb 7 with gap of 38, possible lab error as pt never had severe respiratory compromise, ABG better without acidosis - given 60 mg IV Lasix in ED, continue - recent echo with EF of 35% - new O2 requirement, titrate off oxygen as appropriate - monitor CBC and BMP Elevated troponin, chronic - EKG without ischemic changes - pt not having chest pain - chronically elevated troponin due to CKD Paroxysmal Atrial flutter - EKG with atrial sensed ventricular paced rhythm - continue Eliquis and rate control medications HTN - BP within normal limits - continue home meds CKD 3 - creatinine at baseline, 1.68 - monitor BMP CAD/hx CVA - continue home meds History of VFib cardiac arrest - s/p AICD Class 3 morbid obesity - BMI 41.3 - weight loss encouraged Med reconciliation not complete upon admission Full Code VTE prophylaxis: Eliquis Patient with acute hypoxic respiratory failure secondary to acute on chronic congestive heart failure exacerbation and new O2 requirement, requiring admission for at least 2 midnights stay for IV diuresis and monitoring. Quality Stroke Does the patient have a stroke diagnosis?: No VTE Prior VTE?: No VTE Risk Level:: Medical - moderate - high VTE Device Contraindication: Treatment Not Indicated VTE Drug Contraindication: N/A - Med Ordered
[2024-12-14] VITALS (10 sets, daily range): BP systolic 110–177; BP diastolic 57–87; PULSE 70–89; RESP 16–24; TEMP 36.1–37.2; O2SAT 90–97
[2024-12-14] MEDS: 0.9 % Sodium Chloride Flush 3 ML SYRINGE IVFLUSH ×2 (02:53→19:34)
[2024-12-14 07:26] LABS: MANUAL DIFF FLAG NO
[2024-12-14 07:33] LABS: Basophils Percent Auto 0.5 % (0-2); Eosinophils Absolute Auto 0.1 X10*3/uL (0.0-0.4); Hematocrit 40.5 % (42.0-52.0); Hemoglobin 13.2 g/dl (14.0-18.0); Imm Gran Abs Auto 0.03 X10*3/uL (0.00-0.03); Imm Gran Pct Auto 0.5 % (0.0-0.4); Lymphocytes Absolute Auto 0.7 X10*3/uL (1.2-4.9); Lymphocytes Percent Auto 12.7 % (20-40); Mean Corpuscular HGB Conc 32.6 g/dl (31.0-36.0); Mean Corpuscular Hemoglobin 29.9 pg (27.0-33.0); Mean Corpuscular Volume 91.6 fL (80.0-98.0); Mean Platelet Volume 9.6 fL (9.4-12.4); Monocytes Absolute Auto 0.7 X10*3/uL (0.1-1.2); Monocytes Percent Auto 11.9 % (2-11); Neutrophils Absolute Auto 4.3 x10*3/uL (2.0-8.3); Neutrophils Percent Auto 73.4 % (45-73); Platelet Count 129 X10*3/uL (160-400); Red Blood Count 4.42 X10*6/uL (4.60-5.80); Red Cell Distribution Width 15.6 % (11.0-16.0); White Blood Count 5.8 X10*3/uL (4.8-10.8)
[2024-12-14 07:51] LABS: Anion Gap 36 (12-20); Blood Urea Nitrogen 26 mg/dL (9-16); Carbon Dioxide 8 mmol/L (22-29); Chloride 107 mmol/L (96-108); Creatinine Clr Calc Pharmacy 50.7; Estimated Glomerular Filt Rate 39; Glucose Random 93 mg/dL (60-115); Potassium 4.5 mmol/L (3.3-5.1); Sodium 146 mmol/L (135-145)
--- NOTE | 2024-12-14 08:04 | PC.NURSE ---
critical lab value - CO2 of 8 received at this time[address] dr[address] richardson notified immediately. see new orders placed by MD in chart.
[2024-12-14 08:08] LABS: ABG Refer to POC result
--- NOTE | 2024-12-14 08:24 | PHA.MEDREC ---
Pharmacy Consult ? Medication Reconciliation Pharmacy has completed the medication reconciliation. Spoke with patients Isha ([phone]), she was able to confirm all of patients medications. She confirmed patient is taking amiodarone BID and also confirmed patient is no longer taking Metoprolol per his prescriber.
[2024-12-14] MEDS: Furosemide 100 MG/10 ML VIAL 60 MG IVPUSH (08:25)
[2024-12-14 08:27] LABS: Venous Blood Gas Refer to POC result
[2024-12-14 08:27] LABS: VBG HCO3 32 mmol/L (22-26); VBG pCO2 55 mmHg; VBG pH 7.37 (7.32-7.43); VBG pO2 50 mmHg
[2024-12-14 08:36] LABS: Magnesium 2.4 mg/dL (1.6-2.6)
--- NOTE | 2024-12-14 08:39 | PC.NURSE ---
RT unable to obtain repeat ABG. repeat VBG obtained/sent to lab by this RN. admitting provider notified/aware. pending bicarb drip via pharmacy at this time - will administer medication when able. plan of care ongoing.
[2024-12-14 08:42] LABS: B Type Natriuretic Peptide 493 pg/mL (<100)
[2024-12-14 08:45] LABS: Anion Gap 34 (12-20); Blood Urea Nitrogen 29 mg/dL (9-16); Chloride 107 mmol/L (96-108); Creatinine Clr Calc Pharmacy 48.1; Estimated Glomerular Filt Rate 37; Glucose Random 165 mg/dL (60-115); Potassium 3.9 mmol/L (3.3-5.1); Sodium 145 mmol/L (135-145)
[2024-12-14 08:47] LABS: VBG Base Excess 6.5 mmol/L; VBG HCO3 31 mmol/L (22-26); VBG pCO2 47 mmHg; VBG pH 7.43 (7.32-7.43); VBG pO2 64 mmHg
[2024-12-14 08:47] LABS: Lactic Acid 2.2 mmol/L (0.5-2.0)
[2024-12-14 08:47] LABS: Venous Blood Gas Refer to POC result
[2024-12-14 08:48] LABS: Carbon Dioxide 8 mmol/L (22-29)
[2024-12-14] MEDS: Sodium Bicarbonate 8.4% 150 MEQ in Dextrose 5 % 850 ML 100 MEQ IV (08:49)
--- NOTE | 2024-12-14 08:49 | PC.NURSE ---
bicarbonate received via pharmacy - medication administered per provider order.
[2024-12-14] MEDS: Clopidogrel Bisulfate 75 MG TABLET PO (09:36)
[2024-12-14] MEDS: Apixaban 5 MG TABLET PO ×2 (09:36→19:33)
[2024-12-14] MEDS: carvediloL 6.25 MG TABLET PO ×2 (09:36→19:33)
[2024-12-14] MEDS: hydrALAZINE HCl 50 MG TABLET PO ×2 (09:37→19:33)
[2024-12-14] MEDS: Amiodarone HCL 200 MG TABLET PO ×2 (09:37→19:33)
[2024-12-14] MEDS: Famotidine 20 MG TABLET PO (09:37)
--- NOTE | 2024-12-14 10:14 | PM.CNNEP ---
History of Present Illness Reason for Consult Consult date: 12/14/24 Reason for consult: Low total CO2 Chief Complaint Chief complaint: dyspnea History of Present Illness Narrative: Patient is a 74-year-old male with a past medical history significant for CVA, HTN, history VFib cardiac arrest, HFrEF s/p AICD, atrial flutter on Eliquis, CKD 3, and CAD, who presented to the ED due to worsening shortness of breath over the past week with 8 lb weight gain. He reports a cough, nonproductive. No fever, chills, nausea, vomiting, diarrhea, chest pain or dizziness. He experiences dyspnea at rest but worse with exertion. He had been taking additional Lasix on Friday 60 mg, off days taking 40 mg daily which is his regular dose. Renal function is close to baseline. Total CO2 is persistently low. Serum bicarbonate is in the high-normal range. Recent pH was 7.39. [facility] Past Medical History Medical History (Updated 12/14/24 @ 10:15 by Yogi Fitzgerald MD) Morbid obesity with BMI of 40.0-44.9, adult Biventricular ICD (implantable cardioverter-defibrillator) in place Paroxysmal atrial flutter Coronary artery disease Ischemic cardiomyopathy CKD stage 3b, GFR 30-44 ml/min Atrial flutter History of cardiac arrest Complete heart block Ventilator associated pneumonia STEMI (ST elevation myocardial infarction) Hypertension Hx of correction use of blood thinners COPD (chronic obstructive pulmonary disease) Surgical History Surgical History S/P ICD (internal cardiac defibrillator) procedure Social History Social History Household Members: Family Household Members Other:: Housing: House Do you presently have visiting nurse or other home services: No (Stopped services a 2 weeks ago) Patient Tobacco Use Status: Former Tobacco user e-Cigarette/Vaping Use: Never Used Second Hand Smoke Exposure: No Advance Directives Date on File: 09/12/24 service: No Meds Allergies Allergy/AdvReac Type Severity Reaction Status Date / Time No Known Allergies Allergy Verified 12/13/24 09:06 [No Known Allergies*] Active Medications: Current Medications Acetaminophen (Acetaminophen 325 Mg Tablet) 650 mg PO Q6H PRN PRN Reason: Pain, Mild 1-3,fever,headache Amiodarone HCl (Amiodarone Hcl 200 Mg Tablet) 200 mg PO BID [facility] Last Admin: 12/14/24 09:37 Dose: 200 mg Apixaban (Apixaban 5 Mg Tablet) 5 mg PO BID [facility] Last Admin: 12/14/24 09:36 Dose: 5 mg Atorvastatin Calcium (Atorvastatin Calcium 40 Mg Tablet) 40 mg PO BEDTIME [facility] Calcium Carbonate (Calcium Carbonate 750 Mg Tab.Chew) 750 mg PO Q4H PRN PRN Reason: Heartburn Carvedilol (Carvedilol 6.25 Mg Tablet) 6.25 mg PO BID [facility]; Protocol Last Admin: 12/14/24 09:36 Dose: 6.25 mg Clopidogrel Bisulfate (Clopidogrel Bisulfate 75 Mg Tablet) 75 mg PO DAILY [facility] Last Admin: 12/14/24 09:36 Dose: 75 mg Famotidine (Famotidine 20 Mg Tablet) 20 mg PO DAILY [facility] Last Admin: 12/14/24 09:37 Dose: 20 mg Furosemide (Furosemide 100 Mg/10 Ml Vial) 60 mg IVPUSH DAILY [facility]; Protocol Last Admin: 12/14/24 08:25 Dose: 60 mg Hydralazine HCl (Hydralazine Hcl 50 Mg Tablet) 50 mg PO BID [facility]; Protocol Last Admin: 12/14/24 09:37 Dose: 50 mg Sodium Bicarbonate 150 meq/ (Dextrose) 1,000 mls @ 100 mls/hr IV .Q10H [facility] Last Admin: 12/14/24 08:49 Dose: 100 mls/hr Isosorbide Dinitrate (Isosorbide Dinitrate 5 Mg Tablet) 5 mg PO BID [facility]; Protocol Magnesium Hydroxide (Milk Of Magnesia 30 Ml Oral.Susp) 30 ml PO DAILY PRN PRN Reason: Constipation Melatonin (Melatonin 3 Mg Tablet) 6 mg PO BEDTIME PRN PRN Reason: Insomnia Ondansetron HCl (Ondansetron Hcl 4 Mg/2 Ml Vial) 4 mg IVPUSH Q8H PRN PRN Reason: Nausea and Vomiting Sodium Chloride (0.9 % Sodium Chloride Flush 3 Ml Syringe) 3 ml IVFLUSH QSHIFT [facility] Last Admin: 12/14/24 07:47 Dose: Not Given Home Medications ?Medication ?Instructions ?Recorded ?Confirmed ?Last Taken ?Type atorvastatin 40 mg tablet 40 mg PO BEDTIME 04/19/24 12/14/24 12/13/24 08:00 History clopidogrel 75 mg tablet 75 mg PO DAILY 04/19/24 12/14/24 12/13/24 08:00 History famotidine 20 mg tablet 20 mg PO DAILY 04/19/24 12/14/24 12/13/24 08:00 History amiodarone 200 mg tablet 200 mg PO BID 07/01/24 12/14/24 12/13/24 08:00 History furosemide 20 mg tablet 20 mg PO MOWEFR edema 12/14/24 12/14/24 12/13/24 08:00 History melatonin 10 mg tablet 10 mg PO BEDTIME PRN Sleep 12/14/24 12/14/24 Unknown History Physical Exam Vital Signs: Last Vital Signs Temp 97.4 F 12/14/24 09:23 Pulse 80 12/14/24 09:23 Resp 18 12/14/24 09:23 BP 177/87 H 12/14/24 09:23 Pulse Ox 96 12/14/24 09:23 O2 Del Method Nasal Cannula 12/14/24 09:23 O2 Flow Rate 2 12/14/24 09:23 BMI result Body Mass Index 41.3 Results Lab Results 12/14/24 07:19 12/14/24 11:15 Lab results: Chemistry 12/13/24 12/13/24 12/14/24 15:41 20:16 07:19 Sodium 144 147 H 146 H Potassium 4.0 4.0 4.5 Carbon Dioxide 7 L* D 7 L* 8 L* BUN 25 H 25 H 26 H Creatinine 1.67 H 1.68 H 1.71 H Calcium 8.5 9.0 9.0 12/14/24 08:14 Sodium 145 Potassium 3.9 Carbon Dioxide 8 L* BUN 29 H Creatinine 1.80 H Calcium 9.0 Hematology 12/13/24 12/14/24 15:41 07:19 WBC 5.7 5.8 Hgb 13.0 L 13.2 L Plt Count 138 L D 129 L Urinalysis 12/13/24 20:35 Urine Color Yellow Urine Appearance Clear Urine pH 6.0 Ur Specific [place] 1.010 Urine Protein Trace Urine Glucose (UA) Negative Urine Ketones Negative Urine Blood Negative Urine Nitrite Negative Ur Leukocyte Esterase Negative Urine RBC 0-2 Urine WBC 0-5 Ur Squamous Epith Cells 0-2 Hyaline Casts 0-2 Assessment and Plan (1) Metabolic acidosis: Status: Acute (2) CKD (chronic kidney disease) stage 3, GFR 30-59 ml/min: Status: Acute Plan BARB superimposed on CKD BARB resolving Creatinine close to baseline Electroly abnormalities tCO2 was low at 8 but corresponding bicarb level in serum an ABG are normal ; Initial pH was 7.3. pH increased to 7.43 after IV bicarb Repeat labs done in [facility] shows normal tCO2 of 22 mmol Is this a lab error ? Needs further exploration Procedures Date of Service Date of Service: 12/14/24
[2024-12-14 10:18] LABS: Reflex Lactate? Lactic Acid Added
--- NOTE | 2024-12-14 10:22 | MHC.CM.PN ---
CM met with Patient and his /HCP/Isha at bedside and addressed IMM with Patient (the original was given to Patient and a copy has been left on the chart). Patient lives in a duplex with his (his Daughter and her family live on the other half of the duplex). Patient uses a cane and home, self care is his goal. CM has initiated and will follow for dc planning. PCP is Dr. Umanzor and will transport to home at time of dc.
[2024-12-14] MEDS: Isosorbide Dinitrate 5 MG TABLET PO ×2 (10:23→19:33)
[2024-12-14] MEDS: methylPREDNISolone Sod Succ 40 MG/ML VIAL IVPUSH (10:48)
[2024-12-14 11:40] LABS: Cholesterol 135 mg/dL (<200); HDL Cholesterol 57 mg/dL (>40); LDL Cholesterol Calculated 64 mg/dL (<100); Triglycerides 74 mg/dL (<150)
[2024-12-14 11:56] LABS: Anion Gap 33 (12-20); Blood Urea Nitrogen 26 mg/dL (9-16); Calcium 8.5 mg/dL (8.4-10.2); Chloride 105 mmol/L (96-108); Creatinine Clr Calc Pharmacy 57.4; Estimated Glomerular Filt Rate 46; Glucose Random 112 mg/dL (60-115); Potassium 3.6 mmol/L (3.3-5.1); Sodium 142 mmol/L (135-145)
[2024-12-14 12:00] LABS: Carbon Dioxide 8 mmol/L (22-29)
[2024-12-14] MEDS: Albuterol/Iprat 2.5/0.5MG 3 ML AMPUL.NEB INHALE ×3 (12:26→19:34)
--- NOTE | 2024-12-14 15:01 | HO.PM.IMPN ---
Subjective Subjective Date of Service: 12/14/24 Interval History: bicarbonate repeatedly 7-8 but does not correspond with ABG/VBG results or clinical status sent to [facility]; bicarbonate is 22, suggesting interference with our assay cough/breathing improved Review of Systems Review of Systems: Yes all other systems are reviewed and are negative Physical Exam Vital Signs: Vital Signs: Last Vital Signs Temp 97.4 F 12/14/24 11:05 Pulse 78 12/14/24 12:30 Resp 16 12/14/24 12:30 BP 110/60 12/14/24 11:05 Pulse Ox 95 12/14/24 11:05 O2 Del Method Nasal Cannula 12/14/24 11:05 O2 Flow Rate 2 12/14/24 11:05 BMI result Body Mass Index 41.3 Gen: in no acute distress HEENT: sclera anicteric, moist mucus membranes Neck: supple Lungs: diminished, bilateral expiratory wheezing Heart: regular rate and rhythm, no murmurs Abd: soft, non-tender, non-distended Ext: no edema Skin: warm/well-perfused Neuro: alert and oriented x3, no focal findings Psych: appropriate affect Objective Data Active Medications Acetaminophen (Acetaminophen 325 Mg Tablet) 650 mg PO Q6H PRN PRN Reason: Pain, Mild 1-3,fever,headache Albuterol Sulfate (Albuterol Sulfate (0.083%) 2.5 Mg/3 Ml Vial.Neb) 2.5 mg INHALE Q2H PRN PRN Reason: Shortness of Breath/Wheezing Albuterol/Ipratropium (Albuterol/Iprat 2.5/0.5mg 3 Ml Ampul.Neb) 3 ml INHALE RQ4H WHILE AWAKE [facility] Last Admin: 12/14/24 12:26 Dose: 3 ml Documented By: JACQUELYN Amiodarone HCl (Amiodarone Hcl 200 Mg Tablet) 200 mg PO BID [facility] Last Admin: 12/14/24 09:37 Dose: 200 mg Documented By: SHIRA Apixaban (Apixaban 5 Mg Tablet) 5 mg PO BID [facility] Last Admin: 12/14/24 09:36 Dose: 5 mg Documented By: SHIRA Atorvastatin Calcium (Atorvastatin Calcium 40 Mg Tablet) 40 mg PO BEDTIME [facility] Calcium Carbonate (Calcium Carbonate 750 Mg Tab.Chew) 750 mg PO Q4H PRN PRN Reason: Heartburn Carvedilol (Carvedilol 6.25 Mg Tablet) 6.25 mg PO BID [facility]; Protocol Last Admin: 12/14/24 09:36 Dose: 6.25 mg Documented By: SHIRA Clopidogrel Bisulfate (Clopidogrel Bisulfate 75 Mg Tablet) 75 mg PO DAILY [facility] Last Admin: 12/14/24 09:36 Dose: 75 mg Documented By: SHIRA Famotidine (Famotidine 20 Mg Tablet) 20 mg PO DAILY [facility] Last Admin: 12/14/24 09:37 Dose: 20 mg Documented By: SHIRA Furosemide (Furosemide 100 Mg/10 Ml Vial) 60 mg IVPUSH DAILY [facility]; Protocol Last Admin: 12/14/24 08:25 Dose: 60 mg Documented By: KAIDEN Hydralazine HCl (Hydralazine Hcl 50 Mg Tablet) 50 mg PO BID [facility]; Protocol Last Admin: 12/14/24 09:37 Dose: 50 mg Documented By: SHIRA Sodium Bicarbonate 150 meq/ (Dextrose) 1,000 mls @ 100 mls/hr IV .Q10H [facility] Last Admin: 12/14/24 08:49 Dose: 100 mls/hr Documented By: KAIDEN Isosorbide Dinitrate (Isosorbide Dinitrate 5 Mg Tablet) 5 mg PO BID [facility]; Protocol Last Admin: 12/14/24 10:23 Dose: 5 mg Documented By: SHIRA Magnesium Hydroxide (Milk Of Magnesia 30 Ml Oral.Susp) 30 ml PO DAILY PRN PRN Reason: Constipation Melatonin (Melatonin 3 Mg Tablet) 6 mg PO BEDTIME PRN PRN Reason: Insomnia Methylprednisolone Sodium Succinate (Methylprednisolone Sod Succ 40 Mg/Ml Vial) 40 mg IVPUSH Q24H [facility] Last Admin: 12/14/24 10:48 Dose: 40 mg Documented By: SHIRA Ondansetron HCl (Ondansetron Hcl 4 Mg/2 Ml Vial) 4 mg IVPUSH Q8H PRN PRN Reason: Nausea and Vomiting Sodium Chloride (0.9 % Sodium Chloride Flush 3 Ml Syringe) 3 ml IVFLUSH QSHIFT [facility] Last Admin: 12/14/24 07:47 Dose: Not Given Documented By: KAIDEN Non-Admin Reason: Patient Asleep Labs 12/14/24 07:19 12/14/24 11:15 Labs: Laboratory Results - last 24 hr 12/13/24 12/13/24 12/13/24 15:41 19:56 20:16 MCV 92.2 MCH 29.7 MCHC 32.3 RDW 15.4 Plt Count 138 L D MPV 9.5 Immature Gran % (Auto) 0.5 H Neut % (Auto) 74.3 H Lymph % (Auto) 14.1 L [place] % (Auto) 9.2 Eos % (Auto) 1.2 Baso % (Auto) 0.7 Lymph # (Auto) 0.8 L [place] # (Auto) 0.5 Eos # (Auto) 0.1 Baso # (Auto) 0.0 Abs Immat Gran (auto) 0.03 Absolute Neuts (auto) 4.2 Absolute Nucleated RBC 0.000 Nucleated RBC % (auto) 0.0 O2 Saturation ABG pH at Pt Temp ABG pCO2 at Pt Temp ABG pO2 at Pt Temp ABG HCO3 ABG Base Excess (Actual) VBG pH VBG pCO2 VBG pO2 VBG HCO3 VBG O2 Saturation VBG Base Excess Anion Gap 34 H 38 H Estim Creat Clear Calc 51.9 51.6 Estimated GFR 41 40 Random Glucose 92 98 Lactic Acid 1.6 Lactic Acid F/U @ 2Hr Calcium 8.5 9.0 Magnesium Total Bilirubin 0.6 AST 28 ALT 18 Alkaline Phosphatase 133 H B-Natriuretic Peptide 471 H Total Protein 6.7 Albumin 3.9 Triglycerides Cholesterol LDL Cholesterol, Calc HDL Cholesterol Beta-Hydroxybutyrate 0.35 H Urine Color Urine Appearance Urine pH Ur Specific [place] Urine Protein Urine Glucose (UA) Urine Ketones Urine Blood Urine Nitrite Ur Leukocyte Esterase Urine RBC Urine WBC Ur Squamous Epith Cells Urine Bacteria Hyaline Casts Influenza Type A (PCR) NEGATIVE Influenza Type B (PCR) NEGATIVE RSV RNA Qual (PCR) NEGATIVE SARS-CoV-2 RNA (RT-PCR) NEGATIVE 12/13/24 12/13/24 12/13/24 20:25 20:35 22:37 MCV MCH MCHC RDW Plt Count MPV Immature Gran % (Auto) Neut % (Auto) Lymph % (Auto) [place] % (Auto) Eos % (Auto) Baso % (Auto) Lymph # (Auto) [place] # (Auto) Eos # (Auto) Baso # (Auto) Abs Immat Gran (auto) Absolute Neuts (auto) Absolute Nucleated RBC Nucleated RBC % (auto) O2 Saturation 96.0 ABG pH at Pt Temp 7.42 ABG pCO2 at Pt Temp 41 ABG pO2 at Pt Temp 88 ABG HCO3 26 ABG Base Excess (Actual) 2.3 VBG pH 7.31 L VBG pCO2 63 VBG pO2 38 VBG HCO3 32 H VBG O2 Saturation 47.0 VBG Base Excess 4.1 Anion Gap Estim Creat Clear Calc Estimated GFR Random Glucose Lactic Acid Lactic Acid F/U @ 2Hr Calcium Magnesium Total Bilirubin AST ALT Alkaline Phosphatase B-Natriuretic Peptide Total Protein Albumin Triglycerides Cholesterol LDL Cholesterol, Calc HDL Cholesterol Beta-Hydroxybutyrate Urine Color Yellow Urine Appearance Clear Urine pH 6.0 Ur Specific [place] 1.010 Urine Protein Trace Urine Glucose (UA) Negative Urine Ketones Negative Urine Blood Negative Urine Nitrite Negative Ur Leukocyte Esterase Negative Urine RBC 0-2 Urine WBC 0-5 Ur Squamous Epith Cells 0-2 Urine Bacteria None Seen Hyaline Casts 0-2 Influenza Type A (PCR) Influenza Type B (PCR) RSV RNA Qual (PCR) SARS-CoV-2 RNA (RT-PCR) 12/14/24 12/14/24 12/14/24 07:19 08:14 08:22 MCV 91.6 MCH 29.9 MCHC 32.6 RDW 15.6 Plt Count 129 L MPV 9.6 Immature Gran % (Auto) 0.5 H Neut % (Auto) 73.4 H Lymph % (Auto) 12.7 L [place] % (Auto) 11.9 H Eos % (Auto) 1.0 Baso % (Auto) 0.5 Lymph # (Auto) 0.7 L [place] # (Auto) 0.7 Eos # (Auto) 0.1 Baso # (Auto) 0.0 Abs Immat Gran (auto) 0.03 Absolute Neuts (auto) 4.3 Absolute Nucleated RBC 0.000 Nucleated RBC % (auto) 0.0 O2 Saturation ABG pH at Pt Temp ABG pCO2 at Pt Temp ABG pO2 at Pt Temp ABG HCO3 ABG Base Excess (Actual) VBG pH 7.37 VBG pCO2 55 VBG pO2 50 VBG HCO3 32 H VBG O2 Saturation 78.0 VBG Base Excess 6.0 Anion Gap 36 H 34 H Estim Creat Clear Calc 50.7 48.1 Estimated GFR 39 37 Random Glucose 93 165 H Lactic Acid 2.2 H* Lactic Acid F/U @ 2Hr Calcium 9.0 9.0 Magnesium 2.4 Total Bilirubin AST ALT Alkaline Phosphatase B-Natriuretic Peptide 493 H Total Protein Albumin Triglycerides Cholesterol LDL Cholesterol, Calc HDL Cholesterol Beta-Hydroxybutyrate 0.10 Urine Color Urine Appearance Urine pH Ur Specific [place] Urine Protein Urine Glucose (UA) Urine Ketones Urine Blood Urine Nitrite Ur Leukocyte Esterase Urine RBC Urine WBC Ur Squamous Epith Cells Urine Bacteria Hyaline Casts Influenza Type A (PCR) Influenza Type B (PCR) RSV RNA Qual (PCR) SARS-CoV-2 RNA (RT-PCR) 12/14/24 12/14/24 08:43 11:15 MCV MCH MCHC RDW Plt Count MPV Immature Gran % (Auto) Neut % (Auto) Lymph % (Auto) [place] % (Auto) Eos % (Auto) Baso % (Auto) Lymph # (Auto) [place] # (Auto) Eos # (Auto) Baso # (Auto) Abs Immat Gran (auto) Absolute Neuts (auto) Absolute Nucleated RBC Nucleated RBC % (auto) O2 Saturation ABG pH at Pt Temp ABG pCO2 at Pt Temp ABG pO2 at Pt Temp ABG HCO3 ABG Base Excess (Actual) VBG pH 7.43 VBG pCO2 47 VBG pO2 64 VBG HCO3 31 H VBG O2 Saturation 89.0 VBG Base Excess 6.5 Anion Gap 33 H Estim Creat Clear Calc 57.4 Estimated GFR 46 Random Glucose 112 Lactic Acid Lactic Acid F/U @ 2Hr 1.0 Calcium 8.5 Magnesium Total Bilirubin AST ALT Alkaline Phosphatase B-Natriuretic Peptide Total Protein Albumin Triglycerides 74 Cholesterol 135 LDL Cholesterol, Calc 64 HDL Cholesterol 57 Beta-Hydroxybutyrate Urine Color Urine Appearance Urine pH Ur Specific [place] Urine Protein Urine Glucose (UA) Urine Ketones Urine Blood Urine Nitrite Ur Leukocyte Esterase Urine RBC Urine WBC Ur Squamous Epith Cells Urine Bacteria Hyaline Casts Influenza Type A (PCR) Influenza Type B (PCR) RSV RNA Qual (PCR) SARS-CoV-2 RNA (RT-PCR) Assessment and Plan (1) Acute on chronic congestive heart failure: Status: Acute Assessment and Plan: d2 for 74yo M with hx CVA, HTN, hx VF arest s/p AICD, chronic HFrEF [35% Aug 2024], atrial flutter on apixaban, CKD3, CAD presenting with dyspnea + 8 lb weight gain over 1 wk, found to be hypoxic acute hypoxic respiratory failure due to acute-chronic HFrEF - continue IV furosemide, monitor BMP/Mg/BNP, I/Os,wts - supplemental O2, wean as tolerated - continue Isordil + carvedilol + hydralazine COPD exacerbation - methlyprednisolone, standing/prn nebs falsely low serum bicarbonate - repeat BMP sent to [facility] and it is 22 there and 8 here, suggesting pt has an substance in his blood interfering with our assay; Pathology looking into this - d/c IV bicarbonate CKD3 - SCr at baseline pAF - continue apixaban - continue amiodarone + carvedilol hx CVA - continue atorvastatin + clopidogrel HTN - continue hydralazine + carvedilol morbid obesity - diet/exercise counseling VTE ppx - apixaban dispo - TBD In my clinical judgment, the patient requires continued inpatient hospitalization for the following reasons: IV diuresis, hypoxia Total time managing care of this patient today: 40 minutes. Quality Stroke Does the patient have a stroke diagnosis?: No VTE Prior VTE?: No VTE Risk Level:: Medical - moderate - high VTE Device Contraindication: Treatment Not Indicated VTE Drug Contraindication: N/A - Med Ordered
[2024-12-14] MEDS: Atorvastatin Calcium 40 MG TABLET PO (19:33)
[2024-12-15] VITALS (11 sets, daily range): BP systolic 116–143; BP diastolic 58–78; PULSE 58–87; RESP 18–20; TEMP 36.1–37.1; O2SAT 91–96; BMI 40.5
[2024-12-15] MEDS: Acetaminophen 325 MG TABLET 650 MG PO (00:23)
[2024-12-15] MEDS: Albuterol/Iprat 2.5/0.5MG 3 ML AMPUL.NEB INHALE ×4 (07:40→19:22)
[2024-12-15 07:51] LABS: Venous Blood Gas Refer to POC result
[2024-12-15 07:55] LABS: VBG Base Excess 6.6 mmol/L; VBG HCO3 30 mmol/L (22-26); VBG pCO2 40 mmHg; VBG pH 7.48 (7.32-7.43); VBG pO2 117 mmHg
[2024-12-15 07:55] LABS: Anion Gap 34 (12-20); Blood Urea Nitrogen 35 mg/dL (9-16); Calcium 8.6 mg/dL (8.4-10.2); Chloride 103 mmol/L (96-108); Creatinine Clr Calc Pharmacy 45.6; Estimated Glomerular Filt Rate 35; Glucose Random 122 mg/dL (60-115); Magnesium 2.4 mg/dL (1.6-2.6); Potassium 3.6 mmol/L (3.3-5.1); Sodium 141 mmol/L (135-145)
[2024-12-15 08:12] LABS: B Type Natriuretic Peptide 245 pg/mL (<100)
[2024-12-15 08:35] LABS: Procalcitonin 0.08 ng/mL
[2024-12-15] MEDS: 0.9 % Sodium Chloride Flush 3 ML SYRINGE IVFLUSH ×2 (08:35→19:53)
[2024-12-15] MEDS: Furosemide 100 MG/10 ML VIAL 60 MG IVPUSH (08:35)
[2024-12-15] MEDS: hydrALAZINE HCl 50 MG TABLET PO ×2 (08:36→19:46)
[2024-12-15] MEDS: Famotidine 20 MG TABLET PO (08:36)
[2024-12-15] MEDS: Apixaban 5 MG TABLET PO ×2 (08:36→19:47)
[2024-12-15] MEDS: Amiodarone HCL 200 MG TABLET PO ×2 (08:36→19:47)
[2024-12-15] MEDS: Clopidogrel Bisulfate 75 MG TABLET PO (08:36)
[2024-12-15] MEDS: carvediloL 6.25 MG TABLET PO ×2 (08:36→19:46)
[2024-12-15] MEDS: Isosorbide Dinitrate 5 MG TABLET PO ×2 (08:37→19:46)
--- NOTE | 2024-12-15 09:29 | MHC.CM.PN ---
PT is recommending home with services, CM will follow.
--- NOTE | 2024-12-15 10:23 | HO.PM.IMPN ---
Subjective Subjective Date of Service: 12/15/24 Interval History: breathing improved, no longer wheezing diuresing well, negative 1340 mL thus far Review of Systems Review of Systems: Yes all other systems are reviewed and are negative Physical Exam Vital Signs: Vital Signs: Last Vital Signs Temp 98.1 F 12/15/24 07:15 Pulse 77 12/15/24 09:34 Resp 18 12/15/24 07:42 BP 133/78 12/15/24 07:15 Pulse Ox 93 12/15/24 09:34 O2 Del Method Nasal Cannula 12/15/24 07:15 O2 Flow Rate 2 12/15/24 07:15 BMI result Body Mass Index 40.5 Gen: in no acute distress HEENT: sclera anicteric, moist mucus membranes Neck: supple Lungs: diminished L base Heart: regular rate and rhythm, no murmurs Abd: soft, non-tender, non-distended, obese Ext: no edema Skin: warm/well-perfused Neuro: alert and oriented x3, no focal findings Psych: appropriate affect Objective Data Active Medications Acetaminophen (Acetaminophen 325 Mg Tablet) 650 mg PO Q6H PRN PRN Reason: Pain, Mild 1-3,fever,headache Last Admin: 12/15/24 00:23 Dose: 650 mg Documented By: ANA Albuterol Sulfate (Albuterol Sulfate (0.083%) 2.5 Mg/3 Ml Vial.Neb) 2.5 mg INHALE Q2H PRN PRN Reason: Shortness of Breath/Wheezing Albuterol/Ipratropium (Albuterol/Iprat 2.5/0.5mg 3 Ml Ampul.Neb) 3 ml INHALE RQ4H WHILE AWAKE [facility] Last Admin: 12/15/24 07:40 Dose: 3 ml Documented By: LANDON Amiodarone HCl (Amiodarone Hcl 200 Mg Tablet) 200 mg PO BID [facility] Last Admin: 12/15/24 08:36 Dose: 200 mg Documented By: ZOË Apixaban (Apixaban 5 Mg Tablet) 5 mg PO BID [facility] Last Admin: 12/15/24 08:36 Dose: 5 mg Documented By: ZOË Atorvastatin Calcium (Atorvastatin Calcium 40 Mg Tablet) 40 mg PO BEDTIME [facility] Last Admin: 12/14/24 19:33 Dose: 40 mg Documented By: ANA Calcium Carbonate (Calcium Carbonate 750 Mg Tab.Chew) 750 mg PO Q4H PRN PRN Reason: Heartburn Carvedilol (Carvedilol 6.25 Mg Tablet) 6.25 mg PO BID [facility]; Protocol Last Admin: 12/15/24 08:36 Dose: 6.25 mg Documented By: ZOË Clopidogrel Bisulfate (Clopidogrel Bisulfate 75 Mg Tablet) 75 mg PO DAILY [facility] Last Admin: 12/15/24 08:36 Dose: 75 mg Documented By: ZOË Famotidine (Famotidine 20 Mg Tablet) 20 mg PO DAILY [facility] Last Admin: 12/15/24 08:36 Dose: 20 mg Documented By: ZOË Furosemide (Furosemide 100 Mg/10 Ml Vial) 60 mg IVPUSH DAILY [facility]; Protocol Last Admin: 12/15/24 08:35 Dose: 60 mg Documented By: ZOË Hydralazine HCl (Hydralazine Hcl 50 Mg Tablet) 50 mg PO BID [facility]; Protocol Last Admin: 12/15/24 08:36 Dose: 50 mg Documented By: ZOË Isosorbide Dinitrate (Isosorbide Dinitrate 5 Mg Tablet) 5 mg PO BID [facility]; Protocol Last Admin: 12/15/24 08:37 Dose: 5 mg Documented By: ZOË Magnesium Hydroxide (Milk Of Magnesia 30 Ml Oral.Susp) 30 ml PO DAILY PRN PRN Reason: Constipation Melatonin (Melatonin 3 Mg Tablet) 6 mg PO BEDTIME PRN PRN Reason: Insomnia Methylprednisolone Sodium Succinate (Methylprednisolone Sod Succ 40 Mg/Ml Vial) 40 mg IVPUSH Q24H [facility] Last Admin: 12/14/24 10:48 Dose: 40 mg Documented By: SHIRA Ondansetron HCl (Ondansetron Hcl 4 Mg/2 Ml Vial) 4 mg IVPUSH Q8H PRN PRN Reason: Nausea and Vomiting Sodium Chloride (0.9 % Sodium Chloride Flush 3 Ml Syringe) 3 ml IVFLUSH QSHIFT [facility] Last Admin: 12/15/24 08:35 Dose: 3 ml Documented By: ZOË Labs 12/14/24 07:19 12/15/24 07:30 Labs: Laboratory Results - last 24 hr 12/14/24 12/15/24 12/15/24 11:15 07:30 07:42 VBG pH 7.48 H VBG pCO2 40 VBG pO2 117 VBG HCO3 30 H VBG O2 Saturation 100.0 VBG Base Excess 6.6 Anion Gap 33 H 34 H Estim Creat Clear Calc 57.4 45.6 Estimated GFR 46 35 Random Glucose 112 122 H Lactic Acid F/U @ 2Hr 1.0 Calcium 8.5 8.6 Magnesium 2.4 B-Natriuretic Peptide 245 H Triglycerides 74 Cholesterol 135 LDL Cholesterol, Calc 64 HDL Cholesterol 57 Procalcitonin 0.08 Assessment and Plan (1) Acute on chronic congestive heart failure: Status: Acute Assessment and Plan: d3 for 74yo M with hx CVA, HTN, hx VF arest s/p AICD, chronic HFrEF [35% Aug 2024], atrial flutter on apixaban, CKD3, CAD presenting with dyspnea + 8 lb weight gain over 1 wk, found to be hypoxic acute hypoxic respiratory failure due to acute-chronic HFrEF - stop diuresis given worsening SCr; appears euvolemic - wean O2 as tolerated - continue Isordil + carvedilol + hydralazine COPD exacerbation - change IV methylprednisolone to PO prednisone, continue standing/prn nebs falsely low serum bicarbonate - repeat BMP sent to [facility] and it is 22 there and 8 here, suggesting pt has an substance in his blood interfering with our assay; Pathology looking into this - d/c'ed IV bicarbonate BARB/CKD3 - hold diuresis; recheck SCr in AM; baseline around 1.5 pAF - continue apixaban - continue amiodarone + carvedilol hx CVA - continue atorvastatin + clopidogrel HTN - continue hydralazine + carvedilol morbid obesity - diet/exercise counseling VTE ppx - apixaban dispo - eventual home with VNA In my clinical judgment, the patient requires continued inpatient hospitalization for the following reasons: hypoxia, BARB Total time managing care of this patient today: 40 minutes. Quality Stroke Does the patient have a stroke diagnosis?: No VTE Prior VTE?: No VTE Risk Level:: Medical - moderate - high VTE Device Contraindication: Treatment Not Indicated VTE Drug Contraindication: N/A - Med Ordered
[2024-12-15] MEDS: predniSONE 20 MG TABLET 40 MG PO (11:58)
--- NOTE | 2024-12-15 19:12 | PC.NURSE ---
Patient alert and oriented, vss, weaned off O2 on RA sats above 94%, VSS able to ambulate to the bathroom with stand by assist. Patient moved bowels this shift. Pills whole with water, able to tolerated meals, reports no pain.
[2024-12-15] MEDS: Atorvastatin Calcium 40 MG TABLET PO (19:46)
[2024-12-15 21:18] LABS: PES - Abn Protein Band 1 <0.2 g/dL (NONE DETECTED); Prot Elec - Albumin 3.5 g/dL (3.8-4.8); Prot Elec - Alpha1 0.3 g/dL (0.2-0.3); Prot Elec - Alpha2 0.7 g/dL (0.5-0.9); Prot Elec - Beta 1 0.4 g/dL (0.4-0.6); Prot Elec - Beta 2 0.3 g/dL (0.2-0.5); Prot Elec - Gamma 0.7 g/dL (0.8-1.7); Prot Elec - Total Protein 5.9 g/dL (6.1-8.1)
--- NOTE | 2024-12-15 21:23 | P.PNNP_ITS ---
Subjective Subjective Date of Service: 12/15/24 Interval history: breathing improved,diuresing well, In negative fluid balance Physical Exam 2 Vital Signs: Vital Signs: Last Vital Signs Temp 98.7 F 12/15/24 19:18 Pulse 84 12/15/24 19:24 Resp 20 12/15/24 19:24 BP 143/72 H 12/15/24 19:18 Pulse Ox 93 12/15/24 19:18 O2 Del Method Room Air 12/15/24 19:18 O2 Flow Rate 2 12/15/24 07:15 BMI result Body Mass Index 40.5 Const: General: no acute distress Eyes: EOM: EOMs intact bilaterally Neck: Neck: Yes supple Resp: Auscultation: diminished lung sounds Cardio: Rate: regular rate GI: Palpation (GI): Soft to palpation Neuro: General: moves all extremities Objective Data Labs 12/14/24 07:19 12/15/24 07:30 Labs: Laboratory Results - last 24 hr 12/14/24 12/15/24 12/15/24 11:15 07:30 07:42 VBG pH 7.48 H VBG pCO2 40 VBG pO2 117 VBG HCO3 30 H VBG O2 Saturation 100.0 VBG Base Excess 6.6 Sodium 141 Potassium 3.6 Chloride 103 Carbon Dioxide TNP Anion Gap 34 H BUN 35 H Creatinine 1.88 H Estim Creat Clear Calc 45.6 Estimated GFR 35 Random Glucose 122 H Calcium 8.6 Magnesium 2.4 B-Natriuretic Peptide 245 H Total Protein (PEP) 5.9 L Albumin (PEP) 3.5 L Ceflx-4-Majnorpml 0.3 Ixnuf-4-Zixguykjn 0.7 Hmbq-5-Cmaojcof 0.4 Wnql-8-Luskgjzq 0.3 Gamma Globulins 0.7 L Abnorm Protein Band 1 <0.2 H PEP Interpretation SEE NOTE Procalcitonin 0.08 Procedures Date of Service Date of Service: 12/15/24 Assessment & Plan Assessment and plan (1) Acute renal failure: Status: Acute Plan BARB due to CR syndrome and resultant tubular injury and now secondary due to diuresis Hold diuretics. Euvolemic. No ACEI/ARB. On hydralazine/nitrates; Labs AM; Shall F/U Progress Note: Quality Stroke Does the patient have a stroke diagnosis?: No
[2024-12-16] VITALS (11 sets, daily range): BP systolic 114–156; BP diastolic 60–78; PULSE 58–92; RESP 18–20; TEMP 36.1–37.1; O2SAT 90–96
[2024-12-16 06:07] LABS: Blood Urea Nitrogen 36 mg/dL (9-16); Calcium 8.7 mg/dL (8.4-10.2); Chloride 103 mmol/L (96-108); Creatinine Clr Calc Pharmacy 47.1; Estimated Glomerular Filt Rate 37; Glucose Random 100 mg/dL (60-115); Magnesium 2.6 mg/dL (1.6-2.6); Sodium 142 mmol/L (135-145)
[2024-12-16 06:07] LABS: B Type Natriuretic Peptide 353 pg/mL (<100)
[2024-12-16] MEDS: Albuterol/Iprat 2.5/0.5MG 3 ML AMPUL.NEB INHALE ×4 (07:34→18:51)
--- NOTE | 2024-12-16 07:50 | PC.NURSE ---
Addendum entered by Medina Morejon RN 12/16/24 08:06: back in the room at 0805 Original Note: Off unit for xray
[2024-12-16] MEDS: predniSONE 20 MG TABLET 40 MG PO (08:45)
[2024-12-16] MEDS: Apixaban 5 MG TABLET PO ×2 (08:45→19:41)
[2024-12-16] MEDS: carvediloL 6.25 MG TABLET PO ×2 (08:46→19:42)
[2024-12-16] MEDS: Amiodarone HCL 200 MG TABLET PO ×2 (08:46→19:42)
[2024-12-16] MEDS: hydrALAZINE HCl 50 MG TABLET PO ×2 (08:46→19:42)
[2024-12-16] MEDS: Famotidine 20 MG TABLET PO (08:46)
[2024-12-16] MEDS: Clopidogrel Bisulfate 75 MG TABLET PO (08:46)
[2024-12-16] MEDS: Isosorbide Dinitrate 5 MG TABLET PO ×2 (08:46→19:41)
[2024-12-16] MEDS: 0.9 % Sodium Chloride Flush 3 ML SYRINGE IVFLUSH ×2 (08:47→19:43)
[2024-12-16 09:13] LABS: Venous Blood Gas Refer to POC result
[2024-12-16 09:17] LABS: VBG HCO3 31 mmol/L (22-26); VBG pCO2 39 mmHg; VBG pH 7.51 (7.32-7.43); VBG pO2 82 mmHg
[2024-12-16 09:53] LABS: IgA 139 mg/dL (70-320); IgG 750 mg/dL (600-1540); IgM 119 mg/dL (50-300)
--- NOTE | 2024-12-16 10:26 | HO.PM.IMPN ---
Subjective Subjective Date of Service: 12/16/24 Interval History: breathing improved negative 1.43L Review of Systems Review of Systems: Yes all other systems are reviewed and are negative Physical Exam Vital Signs: Vital Signs: Last Vital Signs Temp 97.7 F 12/16/24 08:00 Pulse 82 12/16/24 09:54 Resp 19 12/16/24 08:00 BP 150/78 H 12/16/24 09:54 Pulse Ox 92 12/16/24 09:54 O2 Del Method Room Air 12/16/24 08:00 O2 Flow Rate 2 12/15/24 07:15 BMI result Body Mass Index 40.5 Gen: in no acute distress HEENT: sclera anicteric, moist mucus membranes Neck: supple Lungs: diminished L base Heart: regular rate and rhythm, no murmurs Abd: soft, non-tender, non-distended, obese Ext: no edema Skin: warm/well-perfused Neuro: alert and oriented x3, no focal findings Psych: appropriate affect Objective Data Active Medications Acetaminophen (Acetaminophen 325 Mg Tablet) 650 mg PO Q6H PRN PRN Reason: Pain, Mild 1-3,fever,headache Last Admin: 12/15/24 00:23 Dose: 650 mg Documented By: ANA Albuterol Sulfate (Albuterol Sulfate (0.083%) 2.5 Mg/3 Ml Vial.Neb) 2.5 mg INHALE Q2H PRN PRN Reason: Shortness of Breath/Wheezing Albuterol/Ipratropium (Albuterol/Iprat 2.5/0.5mg 3 Ml Ampul.Neb) 3 ml INHALE RQ4H WHILE AWAKE [facility] Last Admin: 12/16/24 07:34 Dose: 3 ml Documented By: LANDON Amiodarone HCl (Amiodarone Hcl 200 Mg Tablet) 200 mg PO BID [facility] Last Admin: 12/16/24 08:46 Dose: 200 mg Documented By: ZOË Apixaban (Apixaban 5 Mg Tablet) 5 mg PO BID [facility] Last Admin: 12/16/24 08:45 Dose: 5 mg Documented By: ZOË Atorvastatin Calcium (Atorvastatin Calcium 40 Mg Tablet) 40 mg PO BEDTIME [facility] Last Admin: 12/15/24 19:46 Dose: 40 mg Documented By: ANA Calcium Carbonate (Calcium Carbonate 750 Mg Tab.Chew) 750 mg PO Q4H PRN PRN Reason: Heartburn Carvedilol (Carvedilol 6.25 Mg Tablet) 6.25 mg PO BID [facility]; Protocol Last Admin: 12/16/24 08:46 Dose: 6.25 mg Documented By: ZOË Clopidogrel Bisulfate (Clopidogrel Bisulfate 75 Mg Tablet) 75 mg PO DAILY [facility] Last Admin: 12/16/24 08:46 Dose: 75 mg Documented By: ZOË Famotidine (Famotidine 20 Mg Tablet) 20 mg PO DAILY [facility] Last Admin: 12/16/24 08:46 Dose: 20 mg Documented By: ZOË Furosemide (Furosemide 100 Mg/10 Ml Vial) 60 mg IVPUSH DAILY [facility]; Protocol Last Admin: 12/15/24 08:35 Dose: 60 mg Documented By: ZOË Hydralazine HCl (Hydralazine Hcl 50 Mg Tablet) 50 mg PO BID [facility]; Protocol Last Admin: 12/16/24 08:46 Dose: 50 mg Documented By: ZOË Isosorbide Dinitrate (Isosorbide Dinitrate 5 Mg Tablet) 5 mg PO BID [facility]; Protocol Last Admin: 12/16/24 08:46 Dose: 5 mg Documented By: ZOË Magnesium Hydroxide (Milk Of Magnesia 30 Ml Oral.Susp) 30 ml PO DAILY PRN PRN Reason: Constipation Melatonin (Melatonin 3 Mg Tablet) 6 mg PO BEDTIME PRN PRN Reason: Insomnia Ondansetron HCl (Ondansetron Hcl 4 Mg/2 Ml Vial) 4 mg IVPUSH Q8H PRN PRN Reason: Nausea and Vomiting Prednisone (Prednisone 20 Mg Tablet) 40 mg PO DAILY [facility] Last Admin: 12/16/24 08:45 Dose: 40 mg Documented By: ZOË Sodium Chloride (0.9 % Sodium Chloride Flush 3 Ml Syringe) 3 ml IVFLUSH QSHIFT [facility] Last Admin: 12/16/24 08:47 Dose: 3 ml Documented By: ZOË Labs 12/14/24 07:19 12/16/24 05:04 Labs: Laboratory Results - last 24 hr 12/14/24 12/16/24 12/16/24 11:15 05:04 05:27 VBG pH VBG pCO2 VBG pO2 VBG HCO3 VBG O2 Saturation VBG Base Excess Anion Gap Not Reportable Estim Creat Clear Calc 47.1 Estimated GFR 37 Random Glucose 100 Calcium 8.7 Magnesium 2.6 B-Natriuretic Peptide 353 H Total Protein (PEP) 5.9 L Albumin (PEP) 3.5 L Bzpnh-7-Jcdckdbum 0.3 Gkpgv-8-Putxqyjhy 0.7 Rsza-6-Cblsmmou 0.4 Rpdk-9-Ssjbmbbf 0.3 Gamma Globulins 0.7 L Abnorm Protein Band 1 <0.2 H PEP Interpretation SEE NOTE IgG Total 750 IgA Total 139 IgM 119 MARIA ISABEL Interpretation SEE NOTE 12/16/24 09:09 VBG pH 7.51 H VBG pCO2 39 VBG pO2 82 VBG HCO3 31 H VBG O2 Saturation 97.0 VBG Base Excess 8.0 Anion Gap Estim Creat Clear Calc Estimated GFR Random Glucose Calcium Magnesium B-Natriuretic Peptide Total Protein (PEP) Albumin (PEP) Qvdsw-2-Ahnrysshi Snyab-2-Vyxdvmohk Quhi-6-Bcasvbfl Jtoc-7-Edekuxys Gamma Globulins Abnorm Protein Band 1 PEP Interpretation IgG Total IgA Total IgM MARIA ISABEL Interpretation Assessment and Plan (1) Acute on chronic congestive heart failure: Status: Acute Assessment and Plan: d3 for 74yo M with hx CVA, HTN, hx VF arrest s/p AICD, chronic HFrEF [35% Aug 2024], atrial flutter on apixaban, CKD3, CAD presenting with dyspnea + 8 lb weight gain over 1 wk, found to be hypoxic with L pleural effusion acute hypoxic respiratory failure due to acute-chronic HFrEF pleural effusion, suspect due to CHF - will resume IV furosemide - hypoxia resolved - continue Isordil + carvedilol + hydralazine COPD exacerbation - changed IV methylprednisolone to PO prednisone, continue standing/prn nebs falsely low serum bicarbonate - repeat BMP sent to [facility] and it is 22 there and 8 here, suggesting pt has an substance in his blood interfering with our assay; Pathology + Laboratory are looking into this - d/c'ed IV bicarbonate BARB/CKD3 - resume diuresis; recheck SCr in AM; baseline around 1.5 pAF - continue apixaban - continue amiodarone + carvedilol hx CVA - continue atorvastatin + clopidogrel HTN - continue hydralazine + carvedilol morbid obesity - diet/exercise counseling VTE ppx - apixaban dispo - eventual home with VNA In my clinical judgment, the patient requires continued inpatient hospitalization for the following reasons: BARB, pleural effusion Total time managing care of this patient today: 40 minutes. Quality Stroke Does the patient have a stroke diagnosis?: No VTE Prior VTE?: No VTE Risk Level:: Medical - moderate - high VTE Device Contraindication: Treatment Not Indicated VTE Drug Contraindication: N/A - Med Ordered
[2024-12-16] MEDS: Furosemide 40 MG/4 ML VIAL IVPUSH (12:04)
--- NOTE | 2024-12-16 18:38 | P.PNNP_ITS ---
Subjective Subjective Date of Service: 12/16/24 Interval history: Breathing improved. In negative balance Physical Exam 2 Vital Signs: Vital Signs: Last Vital Signs Temp 98.7 F 12/16/24 15:14 Pulse 78 12/16/24 15:24 Resp 18 12/16/24 15:24 BP 131/69 12/16/24 15:14 Pulse Ox 92 12/16/24 15:14 O2 Del Method Room Air 12/16/24 15:14 O2 Flow Rate 2 12/15/24 07:15 BMI result Body Mass Index 40.5 Const: General: no acute distress Orientation/consciousness: patient oriented x3 Eyes: EOM: EOMs intact bilaterally Neck: Neck: Yes supple Resp: Auscultation: diminished lung sounds Cardio: Rate: regular rate GI: Palpation (GI): Soft to palpation Neuro: General: patient oriented x3 Objective Data Labs 12/14/24 07:19 12/16/24 05:04 Labs: Laboratory Results - last 24 hr 12/14/24 12/16/24 12/16/24 11:15 05:04 05:27 VBG pH VBG pCO2 VBG pO2 VBG HCO3 VBG O2 Saturation VBG Base Excess Sodium 142 Potassium 4.0 Chloride 103 Carbon Dioxide TNP Anion Gap Not Reportable BUN 36 H Creatinine 1.82 H Estim Creat Clear Calc 47.1 Estimated GFR 37 Random Glucose 100 Calcium 8.7 Magnesium 2.6 B-Natriuretic Peptide 353 H Total Protein (PEP) 5.9 L Albumin (PEP) 3.5 L Tgatu-4-Dgtdcfmer 0.3 Upxeq-0-Xlkowwxsx 0.7 Duux-8-Nbtwgsoq 0.4 Incs-8-Zxiqxsws 0.3 Gamma Globulins 0.7 L Abnorm Protein Band 1 <0.2 H Abnorm Protein Band 2 TNP Abnorm Protein Band 3 TNP PEP Interpretation SEE NOTE IgG Total 750 IgA Total 139 IgM 119 MARIA ISABEL Interpretation SEE NOTE 12/16/24 09:09 VBG pH 7.51 H VBG pCO2 39 VBG pO2 82 VBG HCO3 31 H VBG O2 Saturation 97.0 VBG Base Excess 8.0 Sodium Potassium Chloride Carbon Dioxide Anion Gap BUN Creatinine Estim Creat Clear Calc Estimated GFR Random Glucose Calcium Magnesium B-Natriuretic Peptide Total Protein (PEP) Albumin (PEP) Lujgl-1-Sgmyxvetk Mgfbz-2-Acreqeigk Frqv-9-Snfykwnp Eeie-6-Vroygqvc Gamma Globulins Abnorm Protein Band 1 Abnorm Protein Band 2 Abnorm Protein Band 3 PEP Interpretation IgG Total IgA Total IgM MARIA ISABEL Interpretation Procedures Date of Service Date of Service: 12/16/24 Assessment & Plan Assessment and plan (1) CKD (chronic kidney disease) stage 3, GFR 30-59 ml/min: Status: Acute Assessment and Plan: BARB due to CR syndrome and resultant tubular injury ; Resumed diuretics No ACEI/ARB. On hydralazine/nitrates; Labs AM; Shall F/U Progress Note: Quality Stroke Does the patient have a stroke diagnosis?: No
[2024-12-16] MEDS: Atorvastatin Calcium 40 MG TABLET PO (19:47)
[2024-12-17] VITALS (11 sets, daily range): BP systolic 130–166; BP diastolic 60–85; PULSE 73–84; RESP 17–20; TEMP 36.3–37.4; O2SAT 90–97
[2024-12-17 07:02] LABS: Blood Urea Nitrogen 42 mg/dL (9-16); Calcium 8.6 mg/dL (8.4-10.2); Chloride 103 mmol/L (96-108); Creatinine Clr Calc Pharmacy 44.4; Estimated Glomerular Filt Rate 34; Glucose Random 89 mg/dL (60-115); Sodium 143 mmol/L (135-145)
[2024-12-17 07:12] LABS: B Type Natriuretic Peptide 525 pg/mL (<100)
[2024-12-17] MEDS: Albuterol/Iprat 2.5/0.5MG 3 ML AMPUL.NEB INHALE ×4 (07:29→18:53)
[2024-12-17] MEDS: Amiodarone HCL 200 MG TABLET PO ×2 (09:08→19:58)
[2024-12-17] MEDS: Clopidogrel Bisulfate 75 MG TABLET PO (09:08)
[2024-12-17] MEDS: hydrALAZINE HCl 50 MG TABLET PO ×2 (09:08→19:57)
[2024-12-17] MEDS: carvediloL 6.25 MG TABLET PO ×2 (09:08→19:58)
[2024-12-17] MEDS: Apixaban 5 MG TABLET PO ×2 (09:08→19:57)
[2024-12-17] MEDS: 0.9 % Sodium Chloride Flush 3 ML SYRINGE IVFLUSH ×3 (09:09→20:03)
[2024-12-17] MEDS: Famotidine 20 MG TABLET PO (09:09)
[2024-12-17] MEDS: Furosemide 40 MG TABLET PO ×2 (09:09→09:23)
[2024-12-17] MEDS: Isosorbide Dinitrate 5 MG TABLET PO ×2 (09:09→19:57)
[2024-12-17] MEDS: predniSONE 20 MG TABLET 40 MG PO (09:20)
--- NOTE | 2024-12-17 11:19 | HO.PM.IMPN ---
Subjective Subjective Date of Service: 12/17/24 Interval History: breathing well but c/o scrotal swelling Review of Systems Review of Systems: Yes all other systems are reviewed and are negative Physical Exam Vital Signs: Vital Signs: Last Vital Signs Temp 97.3 F 12/17/24 11:08 Pulse 77 12/17/24 11:12 Resp 20 12/17/24 11:08 BP 139/70 12/17/24 11:12 Pulse Ox 95 12/17/24 11:12 O2 Del Method Room Air 12/17/24 11:08 O2 Flow Rate 2 12/15/24 07:15 BMI result Body Mass Index 40.5 Gen: in no acute distress HEENT: sclera anicteric, moist mucus membranes Neck: supple Lungs: diminished L base Heart: regular rate and rhythm, no murmurs Abd: soft, non-tender, non-distended, obese : scrotal swelling L>R Ext: no edema Skin: warm/well-perfused Neuro: alert and oriented x3, no focal findings Psych: appropriate affect Objective Data Active Medications Acetaminophen (Acetaminophen 325 Mg Tablet) 650 mg PO Q6H PRN PRN Reason: Pain, Mild 1-3,fever,headache Last Admin: 12/15/24 00:23 Dose: 650 mg Documented By: ANA Albuterol Sulfate (Albuterol Sulfate (0.083%) 2.5 Mg/3 Ml Vial.Neb) 2.5 mg INHALE Q2H PRN PRN Reason: Shortness of Breath/Wheezing Albuterol/Ipratropium (Albuterol/Iprat 2.5/0.5mg 3 Ml Ampul.Neb) 3 ml INHALE RQ4H WHILE AWAKE [facility] Last Admin: 12/17/24 07:29 Dose: 3 ml Documented By: LANDON Amiodarone HCl (Amiodarone Hcl 200 Mg Tablet) 200 mg PO BID [facility] Last Admin: 12/17/24 09:08 Dose: 200 mg Documented By: BROAdrian Apixaban (Apixaban 5 Mg Tablet) 5 mg PO BID [facility] Last Admin: 12/17/24 09:08 Dose: 5 mg Documented By: ZOË Atorvastatin Calcium (Atorvastatin Calcium 40 Mg Tablet) 40 mg PO BEDTIME [facility] Last Admin: 12/16/24 19:47 Dose: 40 mg Documented By: WALESKA Calcium Carbonate (Calcium Carbonate 750 Mg Tab.Chew) 750 mg PO Q4H PRN PRN Reason: Heartburn Carvedilol (Carvedilol 6.25 Mg Tablet) 6.25 mg PO BID [facility]; Protocol Last Admin: 12/17/24 09:08 Dose: 6.25 mg Documented By: ZOË Clopidogrel Bisulfate (Clopidogrel Bisulfate 75 Mg Tablet) 75 mg PO DAILY [facility] Last Admin: 12/17/24 09:08 Dose: 75 mg Documented By: ZOË Famotidine (Famotidine 20 Mg Tablet) 20 mg PO DAILY [facility] Last Admin: 12/17/24 09:09 Dose: 20 mg Documented By: ZOË Furosemide (Furosemide 40 Mg Tablet) 40 mg PO DAILY [facility]; Protocol Last Admin: 12/17/24 09:23 Dose: 40 mg Documented By: ZOË Hydralazine HCl (Hydralazine Hcl 50 Mg Tablet) 50 mg PO BID [facility]; Protocol Last Admin: 12/17/24 09:08 Dose: 50 mg Documented By: ZOË Isosorbide Dinitrate (Isosorbide Dinitrate 5 Mg Tablet) 5 mg PO BID [facility]; Protocol Last Admin: 12/17/24 09:09 Dose: 5 mg Documented By: ZOË Magnesium Hydroxide (Milk Of Magnesia 30 Ml Oral.Susp) 30 ml PO DAILY PRN PRN Reason: Constipation Melatonin (Melatonin 3 Mg Tablet) 6 mg PO BEDTIME PRN PRN Reason: Insomnia Ondansetron HCl (Ondansetron Hcl 4 Mg/2 Ml Vial) 4 mg IVPUSH Q8H PRN PRN Reason: Nausea and Vomiting Prednisone (Prednisone 20 Mg Tablet) 40 mg PO DAILY [facility] Last Admin: 12/17/24 09:20 Dose: 40 mg Documented By: ZOË Sodium Chloride (0.9 % Sodium Chloride Flush 3 Ml Syringe) [facility] Last Admin: 12/17/24 09:09 Dose: 3 ml Documented By: ZOË Labs 12/14/24 07:19 12/17/24 05:44 Labs: Laboratory Results - last 24 hr 12/14/24 12/17/24 11:15 05:44 Anion Gap TNP Estim Creat Clear Calc 44.4 Estimated GFR 34 Random Glucose 89 Calcium 8.6 B-Natriuretic Peptide 525 H Abnorm Protein Band 2 TNP Abnorm Protein Band 3 TNP Assessment and Plan (1) Acute on chronic congestive heart failure: Status: Acute Assessment and Plan: d4 for 74yo M with hx CVA, HTN, hx VF arrest s/p AICD, chronic HFrEF [35% Aug 2024], atrial flutter on apixaban, CKD3, CAD presenting with dyspnea + 8 lb weight gain over 1 wk, found to be hypoxic with L pleural effusion acute hypoxic respiratory failure due to acute-chronic HFrEF pleural effusion, suspect due to CHF - change IV back to PO furosemide - hypoxia resolved - continue Isordil + carvedilol + hydralazine COPD exacerbation - changed IV methylprednisolone to PO prednisone, continue standing/prn nebs scrotal swelling - US, Urology consult falsely low serum bicarbonate - repeat BMP sent to [facility] and it is 22 there and 8 here, suggesting pt has an substance in his blood interfering with our assay; Pathology + Laboratory are looking into this - d/c'ed IV bicarbonate 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 Quality Stroke Does the patient have a stroke diagnosis?: No VTE Prior VTE?: No VTE Risk Level:: Medical - moderate - high VTE Device Contraindication: Treatment Not Indicated VTE Drug Contraindication: N/A - Med Ordered
--- NOTE | 2024-12-17 15:37 | MHC.CM.PN ---
EMR reviewed and per MD rounds, pt is not medically cleared for discharge due to management of BARB, scrotal swelling.
--- NOTE | 2024-12-17 19:01 | PC.NURSE ---
Patient alert and oriented, forgetful at times. RA, able to ambulate to the bathroom, and out in the hallway with PT. Reports increased scrotal swelling, provider notified, US ordered, scrotum elevated with a towel when patient in bed. No complaints, tolerated meals.
[2024-12-17] MEDS: Atorvastatin Calcium 40 MG TABLET PO (19:57)
--- NOTE | 2024-12-17 21:36 | P.PNNP_ITS ---
Subjective Subjective Date of Service: 12/17/24 Interval history: breathing well but c/o scrotal swelling. Serum creatinine plateauing Physical Exam 2 Vital Signs: Vital Signs: Last Vital Signs Temp 98.3 F 12/17/24 19:10 Pulse 79 12/17/24 19:10 Resp 18 12/17/24 19:10 BP 164/80 H 12/17/24 19:10 Pulse Ox 96 12/17/24 19:10 O2 Del Method Room Air 12/17/24 19:10 O2 Flow Rate 2 12/15/24 07:15 BMI result Body Mass Index 40.5 Const: General: no acute distress Orientation/consciousness: patient oriented x3 Eyes: EOM: EOMs intact bilaterally Neck: Neck: Yes supple Resp: Auscultation: diminished lung sounds Cardio: Rate: regular rate GI: Palpation (GI): Soft to palpation Neuro: General: patient oriented x3 Objective Data Labs 12/14/24 07:19 12/17/24 05:44 Labs: Laboratory Results - last 24 hr 12/17/24 05:44 Sodium 143 Potassium 4.0 Chloride 103 Carbon Dioxide TNP Anion Gap TNP BUN 42 H Creatinine 1.93 H Estim Creat Clear Calc 44.4 Estimated GFR 34 Random Glucose 89 Calcium 8.6 B-Natriuretic Peptide 525 H Procedures Date of Service Date of Service: 12/17/24 Assessment & Plan Assessment and plan (1) Acute renal failure: Status: Acute Plan BARB due to CR syndrome and resultant tubular injury ; Resumed diuretics No ACEI/ARB. On hydralazine/nitrates; Creat plateauing; Labs AM; Shall F/U Time Spent With Patient Time: . Progress Note: Quality Stroke Does the patient have a stroke diagnosis?: No
[2024-12-18 03:22] VITALS: BP 160/75; PULSE 72; RESP 18; TEMP 36.3; O2SAT 95
[2024-12-18 07:21] VITALS: BP 155/75; PULSE 70; RESP 18; TEMP 36.7; O2SAT 94
[2024-12-18 07:25] LABS: Anion Gap 33 (12-20); Blood Urea Nitrogen 44 mg/dL (9-16); Calcium 8.6 mg/dL (8.4-10.2); Chloride 104 mmol/L (96-108); Creatinine Clr Calc Pharmacy 45.4; Estimated Glomerular Filt Rate 35; Glucose Random 108 mg/dL (60-115); Potassium 3.9 mmol/L (3.3-5.1); Sodium 141 mmol/L (135-145)
[2024-12-18 07:31] LABS: B Type Natriuretic Peptide 402 pg/mL (<100)
[2024-12-18] MEDS: Albuterol/Iprat 2.5/0.5MG 3 ML AMPUL.NEB INHALE ×2 (07:34→11:12)
[2024-12-18 07:35] VITALS: PULSE 70; RESP 18; O2SAT 93
[2024-12-18] MEDS: Furosemide 40 MG TABLET PO (07:50)
[2024-12-18] MEDS: Isosorbide Dinitrate 5 MG TABLET PO (07:50)
[2024-12-18] MEDS: Clopidogrel Bisulfate 75 MG TABLET PO (07:50)
[2024-12-18] MEDS: predniSONE 20 MG TABLET 40 MG PO (07:50)
[2024-12-18] MEDS: Apixaban 5 MG TABLET PO (07:51)
[2024-12-18] MEDS: 0.9 % Sodium Chloride Flush 3 ML SYRINGE IVFLUSH (07:51)
[2024-12-18] MEDS: hydrALAZINE HCl 50 MG TABLET PO (07:51)
[2024-12-18] MEDS: Famotidine 20 MG TABLET PO (07:51)
[2024-12-18] MEDS: Amiodarone HCL 200 MG TABLET PO (07:51)
[2024-12-18] MEDS: carvediloL 6.25 MG TABLET PO (07:51)
[2024-12-18 10:49] VITALS: BP 124/60; PULSE 72; RESP 18; TEMP 36.6; O2SAT 94
[2024-12-18 11:13] VITALS: PULSE 72; RESP 18; O2SAT 94
--- NOTE | 2024-12-18 11:48 | P.F2F_ITS ---
Service Date Service Date: 12/18/24 Encounter Date of encounter: 12/18/24 Reasons for Services Signs and symptoms assessed: CHF attach PT evals 12/15-12/17/24 Reason for group home: medication management, medication treatment, teach disease management and other (CHF monitoring/teaching) Reason for physical therapy: home safety and mobility, therapeutic exercises, gait/transfer training, assess need for DME, ADL training and energy conservation MD Overseeing Care: Kaz Umanzor Homebound: Leaving the home is medically contraindicated at this time without the asist of a device and/or another person due th the listed conditions above and below. Reason homebound: unsteady gait / fall risk and weakness related to hospital stay Certification: Based on the above findings, I certify that this patient is confined to the home and needs intermittent group home care, physical therapy and/or speech therapy, or continues to need occupational therapy. The patient is under my care, and I have initiated the establishment of the plan of care. The patient will be followed by a physician who will periodically review the plan of care. Time Spent With Patient Time: Total time managing care of this patient today ____ minutes.
--- NOTE | 2024-12-18 11:55 | P.DS_ITS ---
DS: Providers Provider Date of Service: 12/18/24 Date of admission: 12/13/24 22:58 Date of discharge: 12/18/24 Primary care physician: Kaz Umanzor MD Consults: 12/14/24 08:04 Consult to Nephrology Stat Consulting Provider: [facility] Reason for consultation: severe acidosis not corresponding to ABG 12/17/24 11:18 Consult to Urology Routine Consulting Provider: [facility] Reason for consultation: Complex septated hydroceles, 12/17/24 11:21 Consult to Hematology / Oncology Routine Consulting Provider: [facility] Reason for consultation: MGUS; causing falsely low bicarbonate? DS: Diagnosis Discharge Diagnosis (1) Acute renal failure: Status: Acute (2) CKD (chronic kidney disease) stage 3, GFR 30-59 ml/min: Status: Acute (3) Acute hypoxic respiratory failure: Status: Acute (4) Morbid obesity with BMI of 40.0-44.9, adult: Status: Chronic (5) Acute on chronic HFrEF (heart failure with reduced ejection fraction): Status: Acute (6) COPD exacerbation: Status: Acute DS: Summary Hospital Course Hospital Course: From the history and physical by the admitting hospitalist, CARLOTA Muñoz, 12/13/24: Patient is a 74-year-old male with a past medical history significant for CVA, HTN, history VFib cardiac arrest, HFrEF s/p AICD, atrial flutter on Eliquis, CKD 3, and CAD, who presented to the ED due to worsening shortness of breath over the past week with 8 lb weight gain. He reports a cough, nonproductive. No fever, chills, nausea, vomiting, diarrhea, chest pain or dizziness. He experiences dyspnea at rest but worse with exertion. He had been taking additional Lasix on Friday 60 mg, off days taking 40 mg daily which is his regular dose. 74yo M with hx CVA, HTN, hx VF arrest s/p AICD, chronic HFrEF [35% Aug 2024], atrial flutter on apixaban, CKD3, CAD; presenting with dyspnea + 8 lb weight gain over 1 wk, found to be hypoxic with L pleural effusion. He was admitted to the telemetry unit. Hospital course by problem: acute hypoxic respiratory failure due to acute-chronic HFrEF pleural effusion, suspect due to CHF - hypoxia resolved with IV diuresis and PO furosemide was resumed. Overall net negative about 1L. Should follow up with Cardiology in 2 weeks. COPD exacerbation - treated with IV methylprednisolone, then PO prednisone. Discharged on 6-day prednisone taper. Also prescribed nebulizer machine and Duoneb solution. BARB/CKD3 - cardiorenal vs excess diuresis; resumed furosemide PO and SCr stable. Nephrology followed while in hospital. Will order recheck BMP in 1 week. Should follow up yes[facility] Nephrology in 2 weeks. scrotal swelling - US showed bilateral complex septated hydroceles. Referred to Urology as an outpatient. falsely low serum bicarbonate - Did not correspond to pt's ABG or VBG results, nor his clinical picture. Repeat BMP sent to [facility] and it is 22 there and 8 here, suggesting patient has an substance in his blood interfering with our assay; Pathology + Laboratory are looking into this. Not lipemic and paraprotein workup showed a faint IgG kappa monoclonal band which per Heme-Onc is not significant. He was discharged home with VNA services/home PT. Time Attestation Discharge Coordination Time (in mins): 45 Quality: Safe Use of Opioids Does Pt have an Active Cancer Diagnosis on the Problem List?: No Quality: Stroke Does the patient have a stroke diagnosis?: No Physical Exam Vital Signs: Vital Signs: Last Vital Signs Temp 97.9 F 12/18/24 10:49 Pulse 72 12/18/24 11:13 Resp 18 12/18/24 11:13 BP 124/60 12/18/24 10:49 Pulse Ox 94 12/18/24 10:49 O2 Del Method Room Air 12/18/24 10:49 O2 Flow Rate 2 12/15/24 07:15 BMI result Body Mass Index 40.5 Gen: in no acute distress HEENT: sclera anicteric, moist mucus membranes Neck: supple Lungs: diminished L base Heart: regular rate and rhythm, no murmurs Abd: soft, non-tender, non-distended, obese : scrotal swelling Ext: no edema Skin: warm/well-perfused Neuro: alert and oriented x3, no focal findings Psych: appropriate affect DS: Data Data Completed and Pending Completed studies during hospitalization [Text1]: Laboratory Results WBC 5.8 X10*3/uL (4.8-10.8) 12/14/24 07:19 RBC 4.42 X10*6/uL (4.60-5.80) L 12/14/24 07:19 Hgb 13.2 g/dl (14.0-18.0) L 12/14/24 07:19 Hct 40.5 % (42.0-52.0) L 12/14/24 07:19 MCV 91.6 fL (80.0-98.0) 12/14/24 07:19 MCH 29.9 pg (27.0-33.0) 12/14/24 07:19 MCHC 32.6 g/dl (31.0-36.0) 12/14/24 07:19 RDW 15.6 % (11.0-16.0) 12/14/24 07:19 Plt Count 129 X10*3/uL (160-400) L 12/14/24 07:19 MPV 9.6 fL (9.4-12.4) 12/14/24 07:19 Immature Gran % (Auto) 0.5 % (0.0-0.4) H 12/14/24 07:19 Neut % (Auto) 73.4 % (45-73) H 12/14/24 07:19 Lymph % (Auto) 12.7 % (20-40) L 12/14/24 07:19 [place] % (Auto) 11.9 % (2-11) H 12/14/24 07:19 Eos % (Auto) 1.0 % (0-4) 12/14/24 07:19 Baso % (Auto) 0.5 % (0-2) 12/14/24 07:19 Lymph # (Auto) 0.7 X10*3/uL (1.2-4.9) L 12/14/24 07:19 [place] # (Auto) 0.7 X10*3/uL (0.1-1.2) 12/14/24 07:19 Eos # (Auto) 0.1 X10*3/uL (0.0-0.4) 12/14/24 07:19 Baso # (Auto) 0.0 X10*3/uL (0.0-0.2) 12/14/24 07:19 Abs Immat Gran (auto) 0.03 X10*3/uL (0.00-0.03) 12/14/24 07:19 Absolute Neuts (auto) 4.3 x10*3/uL (2.0-8.3) 12/14/24 07:19 Absolute Nucleated RBC 0.000 X10*3/uL (0.0-0.012) 12/14/24 07:19 Nucleated RBC % (auto) 0.0 /100WBC (0.0-0.2) 12/14/24 07:19 O2 Saturation 96.0 % 12/13/24 22:37 ABG pH at Pt Temp 7.42 (7.35-7.45) 12/13/24 22:37 ABG pCO2 at Pt Temp 41 mmHg (32-45) 12/13/24 22:37 ABG pO2 at Pt Temp 88 mmHg (83-108) 12/13/24 22:37 ABG HCO3 26 mmol/L (22-26) 12/13/24 22:37 ABG Base Excess (Actual) 2.3 mmol/L 12/13/24 22:37 VBG pH 7.51 (7.32-7.43) H 12/16/24 09:09 VBG pCO2 39 mmHg 12/16/24 09:09 VBG pO2 82 mmHg 12/16/24 09:09 VBG HCO3 31 mmol/L (22-26) H 12/16/24 09:09 VBG O2 Saturation 97.0 % 12/16/24 09:09 VBG Base Excess 8.0 mmol/L 12/16/24 09:09 Sodium 141 mmol/L (135-145) 12/18/24 05:47 Potassium 3.9 mmol/L (3.3-5.1) 12/18/24 05:47 Chloride 104 mmol/L (96-108) 12/18/24 05:47 Carbon Dioxide TNP 12/18/24 05:47 Anion Gap 33 (12-20) H 12/18/24 05:47 BUN 44 mg/dL (9-16) H 12/18/24 05:47 Creatinine 1.89 mg/dL (0.5-1.4) H 12/18/24 05:47 Estim Creat Clear Calc 45.4 12/18/24 05:47 Estimated GFR 35 12/18/24 05:47 Random Glucose 108 mg/dL (60-115) 12/18/24 05:47 Lactic Acid 2.2 mmol/L (0.5-2.0) H* 12/14/24 08:14 Lactic Acid F/U @ 2Hr 1.0 mmol/L (0.5-2.0) 12/14/24 11:15 Calcium 8.6 mg/dL (8.4-10.2) 12/18/24 05:47 Magnesium 2.6 mg/dL (1.6-2.6) 12/16/24 05:04 Total Bilirubin 0.6 mg/dL (0.0-1.0) 12/13/24 15:41 AST 28 U/L (5-37) 12/13/24 15:41 ALT 18 U/L (0-40) 12/13/24 15:41 Alkaline Phosphatase 133 U/L (39-117) H 12/13/24 15:41 Troponin I High Sens 18.9 ng/L (<3.5-35.0) 12/13/24 20:16 B-Natriuretic Peptide 402 pg/mL (<100) H 12/18/24 05:47 Total Protein 6.7 g/dL (6.5-8.0) 12/13/24 15:41 Total Protein (PEP) 5.9 g/dL (6.1-8.1) L 12/14/24 11:15 Albumin 3.9 g/dL (3.5-5.0) 12/13/24 15:41 Albumin (PEP) 3.5 g/dL (3.8-4.8) L 12/14/24 11:15 Ljegh-7-Mkwdbcsnb 0.3 g/dL (0.2-0.3) 12/14/24 11:15 Eqdni-3-Cmxmqnvzb 0.7 g/dL (0.5-0.9) 12/14/24 11:15 Tqgi-1-Ocmcrznf 0.4 g/dL (0.4-0.6) 12/14/24 11:15 Ubyc-3-Ghhvfrtn 0.3 g/dL (0.2-0.5) 12/14/24 11:15 Gamma Globulins 0.7 g/dL (0.8-1.7) L 12/14/24 11:15 Abnorm Protein Band 1 <0.2 g/dL (NONE DETECTED) H 12/14/24 11:15 Abnorm Protein Band 2 TNP 12/14/24 11:15 Abnorm Protein Band 3 TNP 12/14/24 11:15 PEP Interpretation SEE NOTE 12/14/24 11:15 Triglycerides 74 mg/dL (<150) 12/14/24 11:15 Cholesterol 135 mg/dL (<200) 12/14/24 11:15 LDL Cholesterol, Calc 64 mg/dL (<100) 12/14/24 11:15 HDL Cholesterol 57 mg/dL (>40) 12/14/24 11:15 Beta-Hydroxybutyrate 0.10 mmol/L (0.02-0.27) 12/14/24 08:14 Procalcitonin 0.08 ng/mL 12/15/24 07:30 Urine Color Yellow 12/13/24 20:35 Urine Appearance Clear 12/13/24 20:35 Urine pH 6.0 (5.0-9.0) 12/13/24 20:35 Ur Specific Archer 1.010 (1.005-1.025) 12/13/24 20:35 Urine Protein Trace mg/dL (Neg-Trace) 12/13/24 20:35 Urine Glucose (UA) Negative mg/dL (Negative) 12/13/24 20:35 Urine Ketones Negative mg/dL (Negative) 12/13/24 20:35 Urine Blood Negative (Negative) 12/13/24 20:35 Urine Nitrite Negative (Negative) 12/13/24 20:35 Ur Leukocyte Esterase Negative (Negative) 12/13/24 20:35 Urine RBC 0-2 /HPF (0-2) 12/13/24 20:35 Urine WBC 0-5 /HPF (0-5) 12/13/24 20:35 Ur Squamous Epith Cells 0-2 /HPF (0-2) 12/13/24 20:35 Urine Bacteria None Seen (None Seen) 12/13/24 20:35 Hyaline Casts 0-2 /LPF (0-2) 12/13/24 20:35 IgG Total 750 mg/dL (600-1540) 12/14/24 11:15 IgA Total 139 mg/dL (70-320) 12/14/24 11:15 IgM 119 mg/dL (50-300) 12/14/24 11:15 MARIA ISABEL Interpretation SEE NOTE 12/14/24 11:15 Influenza Type A (PCR) NEGATIVE (Negative) 12/13/24 19:56 Influenza Type B (PCR) NEGATIVE (Negative) 12/13/24 19:56 RSV RNA Qual (PCR) NEGATIVE (Negative) 12/13/24 19:56 SARS-CoV-2 RNA (RT-PCR) NEGATIVE (Negative) 12/13/24 19:56 Impressions Chest X-Ray 12/16/24 08:00 IMPRESSION: Moderate free-flowing left pleural effusion. Electronically signed by: Stevenson Raymundo MD 12/16/2024 08:17 AM EDT RP Abdomen Ultrasound 12/17/24 12:05 IMPRESSION: Negative for ascites. Electronically signed by: Angel Gonzalez MD 12/17/2024 12:41 PM EDT RP Scrotum Ultrasound 12/17/24 12:10 IMPRESSION: No testicular torsion. Complex septated hydroceles, bilaterally. Electronically signed by: Angel Gonzalez MD 12/17/2024 12:46 PM EDT RP Discharge Plan Discharge Anticipated Discharge Date/Time: 12/18/24 11:50 Patient Disposition: Home Health Service Discharge Diagnosis: BARB/CKD3 COPD exacerbation CHF exacerbation hydrocele Referrals: Дмитрий Salmeron MD [Physician] - 2 Weeks Virgil Garcia MD [Physician] - 2 Weeks Esteban Salomon MD [Physician] - 2 Weeks Kaz Umanzor MD [Primary Care Provider] - 1 Week Discharge Medications: New ipratropium-albuterol 0.5 mg-3 mg(2.5 mg base)/3 mL Solution For Nebulization 3 ml inhalation Q6H PRN (Reason: shortness of breath/wheeze) Qty: 25 0RF prednisone 10 mg tablet See Rx Instructions .ROUTE .COMPLEX Qty: 12 0RF Rx Instructions: 30 mg daily x 2 days, then 20 mg daily x 2 days, then 10 mg daily x 2 days Continued furosemide [Lasix] 40 mg tablet 40 mg PO DAILY Qty: 90 3RF amiodarone 200 mg tablet 200 mg PO BID carvedilol 3.125 mg Tablet 6.25 mg PO BID Qty: 60 0RF Protocol: Hold for SBP/HR < HOLD for SBP < : 90 HOLD for HR < : 60 isosorbide dinitrate 5 mg Tablet 5 mg PO BID Qty: 60 0RF Protocol: Hold for SBP< HOLD for SBP < : 90 hydralazine 25 mg tablet 50 mg PO BID Qty: 120 0RF atorvastatin 40 mg Tablet 40 mg PO BEDTIME clopidogrel 75 mg Tablet 75 mg PO DAILY famotidine 20 mg Tablet 20 mg PO DAILY Eliquis 5 mg Tablet 5 mg PO BID Qty: 20 0RF melatonin 10 mg Tablet 10 mg PO BEDTIME PRN (Reason: Sleep) furosemide 20 mg tablet 20 mg PO MOWEFR Rx Instructions: with the 40 mg Discharge Orders: Discharge Order (Routine); Ordered 12/18/24 Ordered By: Yamilex Goyal Diet: Low salt diet Activity on Discharge: As tolerated Stand Alone Forms: Patient Portal Discharge page Print Language: Upper Sorbian Other Ambulatory Orders: Basic Metabolic Panel (Routine) Timeframe: 1 Week Facility: [facility] - Location: Laboratory Ordered By: Yamilex Goyal Care Plan Goals: cardiac, pulmonary, and renal health Health Concerns: BARB/CKD3 COPD exacerbation CHF exacerbation hydrocele Plan of Treatment: prednisone 30 mg daily x 2 days, then 20 mg daily x 2 days, then 10 mg daily x 2 days nebulizer treatments as needed for wheezing or shortness of breath Low-sodium diet: less than 2000 mg of sodium daily. Weigh yourself daily and call your doctor if your weight goes up by more than 3 lb/day or 5 lb/week. Resume furosemide at prior dosing Recheck BMP in 1 week follow up with Cardiology and Nephrology in 2 weeks referral to [facility] [place] 2 weeks to assess hydrocele Please follow up with your primary care doctor within 1 week. Return to the hospital if you experience recurrent or worsening symptoms. Assessment: See Discharge Summary.
--- NOTE | 2024-12-18 12:13 | MHC.CM.PN ---
Patient has been medically cleared for dc to home today, with services. [facility] has accepted Patient and they have been made aware of today's dc. IMM was addressed with Patient and his .
== END 2024-12-18 13:17 | disposition home health service (06) | DRG 291 ==
LOC: HO.ED 21:10 → HO.EDOVER 23:04 → HO.IMC 12-14 07:15
PROVIDERS: Emergency Medicine Emergency Medical Services; Admitting Provider Student in an Organized Health Care Education/Training Program; Emergency Provider Emergency Medicine; PCP Internal Medicine; Visit Provider Family Medicine
DX: I13.0 Hypertensive heart and chronic kidney disease with heart failure and stage 1 through stage 4 chronic kidney disease, or unspecified chronic kidney disease (principal); I50.23 Acute on chronic systolic (congestive) heart failure; J96.01 Acute respiratory failure with hypoxia; Z68.41 Body mass index [BMI] 40.0-44.9, adult; N17.9 Acute kidney failure, unspecified; J44.1 Chronic obstructive pulmonary disease with (acute) exacerbation; N18.30 Chronic kidney disease, stage 3 unspecified; E66.813 Obesity, class 3; D47.2 Monoclonal gammopathy; Z71.3 Dietary counseling and surveillance; N43.2 Other hydrocele; I25.10 Atherosclerotic heart disease of native coronary artery without angina pectoris; Z20.822 Contact with and (suspected) exposure to COVID-19; Z95.810 Presence of automatic (implantable) cardiac defibrillator; Z86.74 Personal history of sudden cardiac arrest; Z87.891 Personal history of nicotine dependence; Z79.01 Long term (current) use of anticoagulants; Z79.02 Long term (current) use of antithrombotics/antiplatelets; Z79.899 Other long term (current) drug therapy
CPT/HCPCS: 0241U; 36415; 36600; 71045; 71048; 76705; 76870; 80048; 80053; 80061; 81001; 82010; 82784; 82803; 83605; 83735; 83880; 84145; 84165; 84484; 85025; 86334; 93005; 94640; 97116; 97162; 99285; J1940; J2919

== ENCOUNTER → 2024-12-13 09:07 | Outpatient (BNV) | payer MEDICARE, SELFPAY | PROVIDERS: PCP Internal Medicine; Visit Provider Internal Medicine Cardiovascular Disease | DX: R06.02 Shortness of breath (principal); R94.31 Abnormal electrocardiogram [ECG] [EKG] | CPT/HCPCS: 93010 ==

== ENCOUNTER → 2024-12-13 09:07 | Outpatient (BNV) | payer MEDICARE, SELFPAY | PROVIDERS: PCP Internal Medicine; Visit Provider Radiology Diagnostic Radiology | DX: R06.02 Shortness of breath (principal); J90 Pleural effusion, not elsewhere classified | CPT/HCPCS: 71045 ==

== ENCOUNTER 2024-12-13 22:58 | Outpatient (BNV) | payer MEDICARE, SELFPAY | END 2024-12-17 12:05 | PROVIDERS: Admitting Provider Student in an Organized Health Care Education/Training Program; Emergency Provider Emergency Medicine; PCP Internal Medicine; Visit Provider Radiology Diagnostic Radiology | DX: N49.2 Inflammatory disorders of scrotum (principal); R19.00 Intra-abdominal and pelvic swelling, mass and lump, unspecified site; N43.3 Hydrocele, unspecified | CPT/HCPCS: 76705; 76870; 93976 ==

== ENCOUNTER 2024-12-13 22:58 | Outpatient (BNV) | payer MEDICARE, SELFPAY | END 2024-12-16 08:00 | PROVIDERS: Admitting Provider Student in an Organized Health Care Education/Training Program; Emergency Provider Emergency Medicine; PCP Internal Medicine; Visit Provider Radiology Diagnostic Radiology | DX: R19.00 Intra-abdominal and pelvic swelling, mass and lump, unspecified site (principal) | CPT/HCPCS: 74018 ==

== ENCOUNTER → 2024-12-13 22:58 | Outpatient (BNV) | payer MEDICARE, SELFPAY | PROVIDERS: Admitting Provider Student in an Organized Health Care Education/Training Program; Emergency Provider Emergency Medicine; PCP Internal Medicine; Visit Provider Physician Assistant | DX: J96.01 Acute respiratory failure with hypoxia (principal); I50.9 Heart failure, unspecified; R79.89 Other specified abnormal findings of blood chemistry; E66.01 Morbid (severe) obesity due to excess calories; Z68.41 Body mass index [BMI] 40.0-44.9, adult | CPT/HCPCS: 99223; 99232; 99239; G0180 ==

== ENCOUNTER → 2024-12-13 22:58 | Outpatient (BNV) | payer MEDICARE, SELFPAY | PROVIDERS: Admitting Provider Student in an Organized Health Care Education/Training Program; Emergency Provider Emergency Medicine; PCP Internal Medicine; Visit Provider Internal Medicine Nephrology | DX: N18.30 Chronic kidney disease, stage 3 unspecified (principal) | CPT/HCPCS: 99232 ==

== ENCOUNTER 2024-12-30 14:13 | Outpatient (AMB) | payer MEDICARE, SELFPAY ==
--- NOTE | 2024-12-30 14:53 | MHC.PC.OV ---
Vital Signs 12/30/24 15:06 Height 5 ft 7 in BP 128/80 Blood Pressure Location Rt brachial Position Sitting Pulse 71 Pulse Source Pulse Oximeter Temp 97.7 F Temp Source Axillary Pulse Oximetry (%) 98 Oxygen Delivery Method Room Air Intake Visit Reasons: Routine Door Maker Required: No Accompanied by: Spouse Allergies No Known Allergies [No Known Allergies*] Allergy (Verified 12/30/24 14:53) Tobacco use date assessed: 12/30/24 Fall risk assessment: No Falls in past year Last assessed Fall Risk: 12/30/24 Dental Screening Dental Screen Date: 12/30/24 Did you have a dental visit in the last 12 months?: No Did you have a dental problem in the last 6 months where you did not have access to dental care?: No HPI HPI Comments History of Present Illness Details Patient is a 74-year-old male with a past medical history significant for CVA, HTN, history VFib cardiac arrest, HFrEF s/p AICD, atrial flutter on Eliquis, CKD 3, and CAD, presenting for follow up. Last seen by PCP in Sep. Hospitalized recently He was hospitalized 12/13-12/18/24. He presented to the ED due to worsening shortness of breath over the past week with 8 lb weight gain, cough. Received IV diuresis for CHF exacerbation, treated with IV steroids transitioned to oral. faint IgG kappa monoclonal band which per Heme-Onc is not significant.He was discharged home with VNA services/home PT. CV: On lasix, amiodarone, toprol, eliquis. Following with [facility]-cardiology. Upcoming visit with Dr Salomon. current lasix dosing is 60 MWF 40 other day. Watching weights since hospitalization. No increase. Breathing stable COPD: Now stable. CKD: Advised follow up with nephrology Urologic: scrotal swelling in hospitall. US showed bilateral complex septated hydroceles. Referred to Urology as an outpatient. ROS see HPI PHYSICAL EXAM: GENERAL: Alert and oriented x 3. NAD EYES: EOMI. Anicteric. HENT: Moist mucous membranes. No scleral icterus. No cervical lymphadenopathy. LUNGS: Clear to auscultation bilaterally. CARDIOVASCULAR: Regular rate and rhythm. No murmur. No JVD. ABDOMEN: Soft, non-tender +bs EXTREMITIES: No edema. Non-tender. SKIN: No rashes or lesions. Warm. NEUROLOGIC: No focal neurological deficits. CN II-XII grossly intact PSYCHIATRIC: Cooperative. Appropriate mood and affect [facility] Medical History (Updated 01/02/25 @ 13:40 by Larisa Quigley MD) CKD stage 3b, GFR 30-44 ml/min COPD (chronic obstructive pulmonary disease) Morbid obesity with BMI of 40.0-44.9, adult Biventricular ICD (implantable cardioverter-defibrillator) in place Paroxysmal atrial flutter Coronary artery disease Ischemic cardiomyopathy Atrial flutter History of cardiac arrest Complete heart block Ventilator associated pneumonia STEMI (ST elevation myocardial infarction) Hypertension Hx of mcc use of blood thinners Surgical History S/P ICD (internal cardiac defibrillator) procedure Family History (Updated 12/30/24 @ 15:13 by Yaima Castillo CMA) Mother No problems noted. Father No problems noted. Social History Household Members: Family Household Members Other:: Housing: House Do you presently have visiting nurse or other home services: No (Stopped services a 2 weeks ago) Patient Tobacco Use Status: Former Tobacco user e-Cigarette/Vaping Use: Former Use Second Hand Smoke Exposure: No Advance Directives Date on File: 09/12/24 service: No Current occupational status: retired Cognitive needs: No Hearing needs: No Vision needs: Yes (reading glasses) Questionnaire PHQ-9 Over the last 2 weeks, how often have you been bothered by any of the following problems? 1. Little interest or pleasure in doing things: not at all 2. Feeling down, depressed, or hopeless: not at all 3. Trouble falling or staying asleep, or sleeping too much: not at all 4. Feeling tired or having little energy: not at all 5. Poor appetite or overeating: not at all 6. Feeling bad about yourself - or that you are a failure or have let yourself or your family down: not at all 7. Trouble concentrating on things, such as reading the newspaper or watching television: not at all 8. Moving or speaking so slowly that other people could have noticed. Or the opposite - being so fidgety or restless that you have been moving around a lot more than usual: not at all 9. Thoughts that you would be better off or of hurting yourself in some way: not at all Total score: 0 Depression Screening Interpretation: Negative Depression Screening Done: Yes 63081 - PHQ-9 Billing: Yes Source: Developed by Drs. Stevenson Springer, Delvin Bean and colleagues, with an educational farooq from [employer]. Thrive Questionnaire Date Thrive assessed: 12/30/24 I am a: Patient Within the past 12 months, did the food you bought not last and you didn't have the money to get more?: Never true Within the past 12 months, did you worry whether your food would run out before you got money to buy more?: Never true Do you have trouble paying for medicines?: No Do you have trouble getting transportation to medical appointments?: No Do you have trouble paying your heating and electricity bill?: No Do you have trouble taking care of your child, family member or friend?: No Do you have trouble with day-to-day activities such as bathing, preparing meals, shopping, managing finances, etc.?: No Are you currently unemployed and looking for a job?: No Are you interested in more education?: No THRIVE Score: 0 AUDIT C Alcohol Use Questionnaire (AUDIT-C) 1. How often do you have a drink containing alcohol?: Never 3. How often do you have six or more drinks on one occasion?: Never Total Score: 0 HUE-7 AMB Questionnaire HUE-7 Date HUE - 7 assessed: 12/30/24 Feeling nervous, anxious, or on edge: 0 = Not at all Not being able to stop or control worryin = Not at all Worrying too much about different things: 0 = Not at all Trouble relaxin = Not at all Being so restless that it is hard to sit still: 0 = Not at all Becoming easily annoyed or irritable: 0 = Not at all Feeling afraid as if something awful might happen: 0 = Not at all Total HUE-7 score (0-4 normal; 5-9 mild; 10-14 moderate; 15-21 severe): 0 Source: Developed by Micaela Kong Kurt Kroenke and colleagues, with an educational farooq from [employer]. Physical exam (Primary Care) Vital Signs: Last Vital Signs Temp 97.7 F 12/30/24 15:06 Pulse 71 12/30/24 15:06 BP 128/80 12/30/24 15:06 Pulse Ox 98 12/30/24 15:06 Oxygen Delivery Method Room Air 12/30/24 15:06 Tobacco/Smoking Status: Tobacco use Status Tobacco use date assessed 12/30/24 12/30/24 14:55 Patient Tobacco Use Status Former Tobacco user 12/30/24 14:55 e-Cigarette/Vaping Use Former Use 12/30/24 14:55 PHQ-9: PHQ-9 Score PHQ-9: Total score 0 12/30/24 15:21 Depression Screening Interpretation: Negative Thrive Assessment: Date of Thrive Assessment Date Thrive assessed 12/30/24 12/30/24 14:55 Coding Level of Care Code New Pt Level 4 (79713) Complex EM visit Add On G2211 Diagnoses Hospital discharge follow-up Z09 Ischemic cardiomyopathy I25.5 Additional Codes PHQ-9 - 14998 - PHQ-9 Billing: Yes ([id number]) Assessment & Plan Assessment & Plan (1) Hospital discharge follow-up: Code(s): Z09 - Encounter for follow-up examination after completed treatment for conditions other than malignant neoplasm Category: Medical (2) Ischemic cardiomyopathy: Code(s): I25.5 - Ischemic cardiomyopathy Category: Medical Plan Hospital discharge follow up Hospital course reviewed. Medications reconciled referral to nephrology placed Euvolemic currently. encouraged to call cardiology/pcp if notice weight gain for instructions re lasix to avoid hospitalization Need urology referral Repeat labs ordered. Orders: Orders Comprehensive Met. Panel 12/30/24 I10 - Essential (primary) hypertension, I50.23 - Acute on chronic systolic (congestive) heart failure, J44.1 - Chronic obstructive pulmonary disease with (acute) exacerbation, N18.30 - Chronic kidney disease, stage 3 unspecified, Z95.810 - Presence of automatic (implantable) cardiac defibrillator TSH reflex Free T4 12/30/24 I10 - Essential (primary) hypertension, I50.23 - Acute on chronic systolic (congestive) heart failure, J44.1 - Chronic obstructive pulmonary disease with (acute) exacerbation, N18.30 - Chronic kidney disease, stage 3 unspecified, Z95.810 - Presence of automatic (implantable) cardiac defibrillator Hemoglobin A1c 12/30/24 I10 - Essential (primary) hypertension, I50.23 - Acute on chronic systolic (congestive) heart failure, J44.1 - Chronic obstructive pulmonary disease with (acute) exacerbation, N18.30 - Chronic kidney disease, stage 3 unspecified, Z95.810 - Presence of automatic (implantable) cardiac defibrillator Complete Blood Count Auto Diff 12/30/24 I10 - Essential (primary) hypertension, I50.23 - Acute on chronic systolic (congestive) heart failure, J44.1 - Chronic obstructive pulmonary disease with (acute) exacerbation, N18.30 - Chronic kidney disease, stage 3 unspecified, Z95.810 - Presence of automatic (implantable) cardiac defibrillator Lipid Panel 12/30/24 I10 - Essential (primary) hypertension, I50.23 - Acute on chronic systolic (congestive) heart failure, J44.1 - Chronic obstructive pulmonary disease with (acute) exacerbation, N18.30 - Chronic kidney disease, stage 3 unspecified, Z95.810 - Presence of automatic (implantable) cardiac defibrillator Referrals Nephrology Referral I50.23 - Acute on chronic systolic (congestive) heart failure, N18.30 - Chronic kidney disease, stage 3 unspecified Urology Referral N43.3 - Hydrocele, unspecified
[2024-12-30 15:06] VITALS: BP 128/80; PULSE 71; TEMP 36.5; O2SAT 98
--- OUTSIDE RECORDS SUMMARY | 2024-12-30 16:59 | XMS_ITS | Clinical Summary ---
Author Organization [facility] Facility Address [address] [place] [address], [place] [address] Care Team Providers Care Crystal Grinder Name Role Phone Unavailable Primary Care Provider Unavailabl e Social History Tobacco Use Types Packs/Day Years Used Date Smoking Tobacco: Never Assessed Sex and Gender Information Value Date Recorded Sex Assigned at Not on file Legal Sex Male 2:46 PM EDT Gender Identity Not on file Sexual Orientation Not on file Plan of Treatment Health Maintenance Due Date Last Done Comments Colorectal Cancer Screening: Annual FOBT 2000 Colorectal Cancer Screening: Colonoscopy 2000 Colorectal Cancer Screening: Sigmoidoscopy 2000 Pneumococcal Vaccine: 50+ Ye ars (1 of 1 - PCV) 2016 Influenza Vaccine (Season Ended) 2025 Hepatitis B Vaccine Aged Out No longe r eligible based on patient's age to complete this topic Insurance [facility]
--- OUTSIDE RECORDS SUMMARY | 2024-12-30 16:59 | XMS_ITS ---
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 Name Role Phone Jose Manuel Escalera MD Primary Care Provider Unavaila Brandon Tse Unavailable [phone] Encounters Encounter Location Date Provider Diagnosis [address] [address] 02/24/2024 Brandon Lozano Plan Of Treatment Next Appt Details Provider Name:Brandon Lozano , 02/11/2025 01:00:00 PM, [address] [place] [address], [phone], Progress Notes * Aaron VALVERDEDOB:1950 (74 yo M)Acc No.[id number]:02/24/2024 Progress Note Patient:Aaron GARCIA Provider:?Brandon Lozano DPM :1950???Age:73 Y???Sex:Male Sulaiman e:02/24/2024 Address:[address] [place], [place] [id number] Pcp:Jose Manuel Escalera MD Subjective: * Chief [...] Lozano DPM Date:?2023 Generated for Laura moser/Scarlett/eTransmitting on:?12/30/2024 04:59 PM EDT
--- OUTSIDE RECORDS SUMMARY | 2024-12-30 16:59 | XMS_ITS | Patient Health Record ---
Author Organization [facility] Matilde jes Pancho Address [address] [place] [address] Care Team Providers Care Adjunct Faculty Name Role Phone Jose Manuel Escalera MD Primary Care Provider Brandon Stokes Unavailable [phone] Allergies No Known Allergies Reason For Referral No Information Medications Medication SIG (Take, Route, Frequency, Duration) Notes Start Date End Date Status Warfarin Sodium 5 MG 1 tablet Orally Onc e a day for 30 day(s) Active Lisinopril 10 MG 1 tablet Orally Once a day for 30 day(s) Active Metoprolol Tartrate 50 MG 1 tablet with food Orally Twice a day for 30 day(s) Active Atorvastatin Calcium 10 MG 1 tablet Oral ly Once a day for 30 day(s) Active Furosemide 20 MG 1 tablet Orally Once a day for 30 day(s) Active Ammonium Lactate 12 % 1 application Exte rnally Twice a day for 30 days Active amLODIPine Besylate 5 MG 1 tablet Orally Once a day for 30 day(s) Active Immunizations Vaccine Route Administration Date Status Comme nts COVID-19 Moderna Vaccine Unknown 07/01/2021 Administered 1st 11/29/20 2nd 12/27/20 Social History Tobacco Use: Social History Observation Description Date Details (start date - stop date) Never Smoker NA - NA Tobacco use other than smoking: Question Answer Notes Are you an other tobacco user? No Tobacco Control (Standard) Question Answer Notes Tobacco use: Nonsmoker Additional Findings: Tobacco non-user Current no nsmoker AUDIT-C (Standard) Question Answer Notes Did you have a drink containing alcohol in the p ast year? No Points 0 Interpretation Negative Problems Problem Type SNOMED Code ICD Code Onset Dates Problem Status W/U Status Risk Notes Problem Atherosclerosis of [place] arteries of the extremities ([id number]) Atherosclerosis of [place] artery of both lower extremities, with unspecified presence of clinical manifestation (I70.203) Active confirmed Q7(A), Q8(2B), Q9(1B,2 C) Vital Signs Blood pressure diastolic 80 mm Hg 10/15/2024 Height 5 ft 10 in in 10/15/2024 Blood pressure systolic 117 mm Hg 10/15/2024 Weight 285 lbs 10/15/2024 BMI 40.89 kg/m2 10/15/2024 Procedures Procedure Date Ordered Date Performed Result Body Sit e 35084-DHQWNPH NAIL, 6 OR MORE 10/15/2024 N/A 29408-JZZA SKIN LESIONS, OVER 4 10/15/2024 N/A Encounters Encounter Location Date Provider Diagnosis [facility] [address] [address] 10/15/2024 Brandon Lozano Atherosclerosis of [place] artery of both lower extremities, with unspecified presence of clinical manifestation I70.203 ; Tinea unguium B35.1 ; Pain in right toe(s) M79.674 and Pain in left toe(s) M79.675 [facility] [address] [address] 02/23/2024 Brandon Lozano Assessments Encounter Date Diagnosis (ICD Code) Assessment Notes Treatment Notes Treatment Clinical Notes Section Notes 10/15/2024 Atherosclerosis of [place] artery of both lower extremities, with unspecified presence of clinical manifestation (ICD-10 - I70.203) Q7(A), Q8(2B), Q9(1B,2C) 10/15/2024 Tinea unguium (ICD-10 - B35.1) 10/15/2024 Pain in right toe(s) (ICD-10 - M79.674) 10/15/2024 Pain in left toe(s) (ICD-10 - M79.675) Plan Of Treatment Pending Test Test Name Order Date 37895-LMKZHMQ NAIL, 6 OR MORE 02/13/2021 17621-XWWOYXQ NAIL, 6 OR MORE 05/29/2021 68206-LCMFDCS NAIL, 6 OR MORE 12/04/2021 17699-ZIMNPQH NAIL, 6 OR MORE 04/05/2022 24050-CUCQCIP NAIL, 6 OR MORE 11/25/2023 61973-MSMIMRT NAIL, 6 OR MORE 10/15/2024 23611-Iakcuknh Plate 11/25/2023 98452-Atsjgjvv Plate 04/05/2022 15693-Gwvvdxgf Plate 05/29/2021 10416-OHJI SKIN LESIONS, OVER 4 05/29/20 26445-RVFZ SKIN LESIONS, OVER 4 04/05/20 35299-OILM SKIN LESIONS, OVER 4 12/05/19 30529-ETEV SKIN LESIONS, OVER 4 11/25/19 24 05521-HMJD SKIN LESIONS, OVER 4 10/15/19 52248-QQFV SKIN LESIONS, 2 TO 4 02/14/20 Next Appt Details Provider Name:Brandon Lozano , 02/11/2025 01:00:00 PM, [address] [place], [address], Insurance Providers Payer Name Payer Address Payer Phone Subscriber Number Group Number Insured Name Patient Relationship to Insured Coverage Start Date Coverage End Date [employer] [place] [employer]vantage [address] [place] [address] [phone] [id number] Aaron Valverde Self - patient is the insured Medical (General) History Medical History History ICD Code Back,Hip,and Knee pain Dementia High blood pressure Stroke Measles Mumps Chicken pox CAD Heart attack - March 25, 2024 Surgical History Surgery Date(Month/Year) Hospitalization History Reason Date(Month/Year) [facility] [place]
--- OUTSIDE RECORDS SUMMARY | 2024-12-30 16:59 | XMS_ITS ---
Author Organization [facility] Address [address] [place] [address] Care Team Providers Care Heavy Duty Custodian Name Role Phone Jose Manuel Escalera MD Primary Care Provider Unavaila Brandon Tse Unavailable [phone] REASON FOR VISIT cx 02/23 Encounters Encounter Location Date Provider Diagnosis [address] [address] 02/23/2024 Brandon Lozano Plan Of Treatment Next Appt Details Provider Name:Brandon Lozano , 02/11/2025 01:00:00 PM, [address] [place], [address], Progress Notes * Aaron VALVERDEDOB:1950 (73 yo M)Acc No.[id number]:02/23/2024 Patient:?Aaron Valverde :1950???Age:73 Y???Sex:Male Address:[address] [place] [address], [address] * true * Date:? Generated for Printi shanti/Scarlett/eTransmitting on:?12/30/2024 04:58 PM EDT
--- OUTSIDE RECORDS SUMMARY | 2024-12-30 16:59 | XMS_ITS ---
Author Organization [facility] Matilde andre Pancho Address [address] [place] [address] Care Team Providers Care Oracle Software Engineer Name Role Phone Jose Manuel Escalera MD Primary Care Provider Brandon Stokes Unavailable [phone] Allergies No Known Allergies REASON FOR VISIT At Risk Footcare, Painful Nail(s) aggravated by shoes and causing difficulty standing/walking. Medications Medication SIG (Take, Route, Frequency, Duration) [...] Twice a day for 30 days Active Atorvastatin Calcium 10 MG 1 tablet Oral ly Once a day for 30 day(s) Active amLODIPine [...] ast year? No Points 0 Interpretation Negative Vital Signs Height 5 ft 10 in in 10/15/2024 Weight 285 lbs 10/15/2024 BMI 40.89 kg/m2 10/15/2024 Blood pressure systolic 117 mm Hg 10/15/19 25 Blood pressure diastolic 80 mm Hg 025 Procedures Procedure Date Ordered Date Performed Result Body Sit e 38626-TNFYMHR NAIL, 6 OR MORE 10/15/2024 N/A 46809-VHJG SKIN LESIONS, OVER 4 10/15/2024 N/A Encounters Encounter Location Date Provider Diagnosis [facility] [place] [address] [place] [address] 10/15/2024 Brandon Marta Atherosclerosis of [place] artery of both lower extremities, with unspecified presence of clinical manifestation I70.203 ; Tinea unguium B35.1 ; Pain in right toe(s) M79.674 and Pain in left toe(s) M79.675 Assessments Encounter Date Diagnosis (ICD Code) Assessment Notes Treatment Notes Treatment Clinical Notes Section Notes 10/15/2024 Atherosclerosis of [place] artery of both lower extremities, with unspecified presence of clinical manifestation (ICD-10 - I70.203) Q7(A), Q8(2B), Q9(1B,2C) 10/15/2024 Tinea unguium (ICD-10 - B35.1) 10/15/2024 Pain in right toe(s) (ICD-10 - M79.674) 10/15/2024 Pain in left toe(s) (ICD-10 - M79.675) Plan Of Treatment Pending Test Test Name Order Date 94900-WGALPLK NAIL, 6 OR MORE 10/15/2024 34963-ABNV SKIN LESIONS, OVER 4 10/15/19 25 Next Appt Details Follow Up: prn, Reason: Provider Name:Brandon Shey AlonsoMarta , 02/11/2025 01:00:00 PM, [address] [place] [address], [phone], Procedure Notes * Category Sub-Category Detail Notes Debride Nail 6-10 Nail debridement Due to the cl inical pathology outlined in the exam findings, performance of this nail treatment is medically necessary as its management by an unskilled/untrained nonprofessional would put this patients foot and overall health at risk. Therefore, debridement to affected nail(s), as described in exam ( TA, T1, T2, T3, T4, T5, T6, T7, T9 ), was performed exclusively by the physician of record to reduce/remove overall nail length, girth, thickness, subungual debris, and necrotic tissue, by manual and/or electrical means through the use of a nail nipper and/or dremel-type grinder operator automatic, to a more viable healthy nail plate or bed tissue 6-10 nails in total. Silver nitrate was used for any petechial bleeding as necessary. Definitive antifungal treatment options, both pharmaceutical and surgical, have been reviewed and discussed with the patient. The patient solely prefers the use of intermittent/as needed professional debridement services for their nail condition and understands the need for additional periodic treatments to maintain effectiveness in symptomatic relief - 95327 Keratoma Treatment Parring or Cutting o f Benign Hyperkeratotic Lesion(s) (-57) More than 4 Lesions - Due to the at risk nature of the patients medical condition as documented in the exam findings, performance of this keratoderma treatment is medically necessary as its management by an unskilled/untrained nonprofessional would put this patients foot and overall health at risk. Therefore, the benign hyperkeratotic lesions, ( 5 ) in total, locations as stated and described in the exam ( Medial, IPJ, T5, SUB MTH (s), 1, B/L , Plantar, Heel(s), B/L ), were pared, and/or cut utilizing a sterile 15 blade, tissue nippers, and/or power dremel instrumentation by the physician of record - 78533, Q88 Progress Notes * CLAUDIOAaronDOB:1950 (74 yo M)Acc No.[id number]:10/15/2024 Progress Note Patient:?Aaron VALVERDE Provider:?Brandon Lozano DPM :1950???Age:74 Y???Sex:Male Sulaiman e:10/15/2024 Address:[address] [place], [place] [id number] Pcp:Jose Manuel Escalera MD Subjective: * Chief Complaints: * ???At Risk FootcarePainful N ail(s) aggravated by shoes and causing difficulty standing/walking. * HPI: ???At Risk footcare:?Pt States Last PCP Visit:?Date?09/23/2024 * ROS:?General/Constitutional:?Nausea?denies.?Vomiting?denies.?Hunger Thirst?denies.?Loss appetite?denies.?Chills?denies.?Fatigue?denies.?Fever?denies.?Night Sweats?denies.?Unexplained weight loss?denies.?Unexplained [...] t Surgical History * Hospitalization/Major Diagno stic Procedure:?[facility] 03/2022 * Family History:?Mother: dece ased.?Father: .? * Social History:?Tobacco Use:?Tobacco use other than smoking?Are you an other tobacco user??No ?Tobacco Control (Standard)?Tobacco use:?Nonsmoker ?Additional Findings: Tobacco non-user?Current nonsmoker ???Drugs/Alcohol:?Drugs?Have you used drugs other than those for medical reasons in the past 12 months??No ???Miscellaneous:?Caffeine: yes, 1-2 cups per day coffee. ?Children: yes. ?Exercise: no. ?Marital status: . ?Occupation: Retired. ???Drug/Alcohol:?AUDIT-C (Standard)?Did you have a drink containing alcohol in the past year??No ?Points?0 ?Interpretation?Negative * Medications:?TakingAmmonium Lactate 12 % Cream 1 application Externally Twice a day amLODIPine Besylate 5 MG Tablet 1 tablet Orally Once a day Atorvastatin Calcium 10 MG Tablet 1 tablet Orally Once a day Furosemide 20 MG Tablet 1 tablet Orally Once a day Lisinopril 10 MG Tablet 1 tablet Orally Once a day Metoprolol Tartrate 50 MG Tablet 1 tablet with food Orally Twice a day Warfarin Sodium 5 MG Tablet 1 tablet Orally Once a day Medication List reviewed and reconciled with the patientTaking Ammonium Lactate 12 % Cream 1 application Externally Twice a day Taking amLODIPine Besylate 5 MG Tablet 1 tablet Orally Once a day Taking Atorvastatin Calcium 10 MG Tablet 1 tablet Orally Once a day Taking Furosemide 20 MG Tablet 1 tablet Orally Once a day Taking Lisinopril 10 MG Tablet 1 tablet Orally Once a day Taking Metoprolol Tartrate 50 MG Tablet 1 tablet with food Orally Twice a day Taking Warfarin Sodium 5 MG Tablet 1 tablet Orally Once a day Medication List reviewed and reconciled with the patient * Allergies:?N.K.D.A.yes[Aller gies Verified] Objective: * Vitals:?Ht:5 ft 10 in, Wt:28 5, BMI:40.89, Shoe size:11, BP:117/80mm Hg, Ht-cm: 177.8 cm, Wt-k.28 kg. * Examination: ???Vascular: ?DP PULSES (B):? 0/4, B/L.?PT PULSES (B):? 0/4, B/L.?CAPILLARY FILL TIME:? delayed, all digits, B/L.?TROPHIC CONDITION-TEXTURE/ELASTICITY/TURGOR/HAIR GROWTH (B):? decreased,?with sparse to absent hair growth, B/L.?TEMPERTURE GRADIENT (C):? decreased, cool to cool, proximal to distal, B/L.?PIGMENTATION:? mottled, B/L.?EDEMA (C):? 2/4, non-pitting, without aching pain, B/L, Leg(s), Ankle(s), Feet.?CLAUDICATION (C):?denies, B/L.?REST PAIN:?denies, B/L.?Nails: ?NAILS are:? Elongated, overgrown, dystrophic, lytic, greater than 3mm thick, discolored and friable with crumbly malodorous subungual debris, with pain on palpation,TA, T1, T2, T3, T4, T5, T6, T7, T9, all other nails not described with characteristics as possessing mycosis are elongated, overgrown, and dystrophic.?Dermatologic: ?SKIN FINDINGS:?Skin exam reveals Keratotic lesion(s) located at, Medial, IPJ, T5, SUB MTH (s), 1, B/L , Plantar, Heel(s), B/L.? Assessment: * Assessment: 1.?Atherosclerosis of [place] artery of both lower extremities, with unspecified presence of clinical manifestation - I70.203 (Primary)???Notes :Q7(A), Q8(2B), Q9(1B,2C)???2.?Tinea unguium - B35.1???3.?Pain in right toe(s) - M79.674???4.?Pain in left toe(s) - M79.675??? Plan: * Treatment: 2.?Tinea unguium?Procedure: 35804-UMMKOMH NAIL, 6 OR MORE * Procedures:?Debride Nail 6-10:?Nail debridement?Due to the clinical pathology outlined in the exam findings, performance of this nail treatment is medically necessary as its management by an unskilled/untrained nonprofessional would put this patients foot and overall health at risk. Therefore, debridement to affected nail(s), as described in exam (?TA,?T1,?T2, T3,?T4,?T5,?T6,?T7,?T9?), was performed exclusively by the physician of record to reduce/remove overall nail length, girth, thickness, subungual debris, and necrotic tissue, by manual and/or electrical means through the use of a nail nipper and/or dremel-type grinder operator automatic, to a more viable healthy nail plate or bed tissue 6- 10 nails in total. Silver nitrate was used for any petechial bleeding as necessary. Definitive antifungal treatment options, both pharmaceutical and surgical, have been reviewed and discussed with the patient. The patient solely prefers the use of intermittent/as needed professional debridement services for their nail condition and understands the need for additional periodic treatments to maintain effectiveness in symptomatic relief - 15336.?Keratoma Treatment:?Parring or Cutting of Benign Hyperkeratotic Lesion(s)?(-57) More than 4 Lesions - Due to the at risk nature of the patients medical condition as documented in the exam findings, performance of this keratoderma treatment is medically necessary as its management by an unskilled/untrained nonprofessional would put this patients foot and overall health at risk. Therefore, the benign hyperkeratotic lesions, ( 5 ) in total, locations as stated and described in the exam (?Medial,?IPJ,?T5,?SUB MTH (s),?1,?B/L?,?Plantar,?Heel(s),?B/L?), were pared, and/or cut utilizing a sterile 15 blade, tissue nippers, and/or power dremel instrumentation by the physician of record - 25894, Q88.? * Procedure Codes:?60843 DEBRI DE NAIL, 6 OR MORE, Modifiers: XS 03729 TRIM SKIN LESIONS, OVER 4, Modifiers: XS , Q8 * Follow Up:?prn * Images: * Sign off status: Completed true * Provider:?Brandon Lozano DPM Date:?2024 Generated for Laura moser/Scarlett/eTransmitting on:?12/30/2024 04:58 PM EDT History and Physical Notes * HPI (History of Present Illness) Category Sub-Category Detail Notes Category Not es At Risk footcare Pt States Last PCP Visit: Date: Examination Category Sub-Category Detail Notes Category Not es Dermatologic SKIN FINDINGS: Skin exam reveal s Keratotic lesion(s) located at, Medial, IPJ, T5, SUB MTH (s), 1, B/L , Plantar, Heel(s), B/L Vascular DP PULSES (B): 0/4, B/L PT PULSES (B): 0/4, B/L CAPILLARY FILL TIME: delayed, all digits , B/L TEMPERTURE GRADIENT (C): decreased, cool to cool, proximal to distal, B/L TROPHIC CONDITION-TEXTURE/ELASTICITY/TURGOR/HAIR GROWTH (B): decreased, with sparse to absent hair gr owth, B/L EDEMA (C): 2/4, non-pitting, wi thout aching pain, B/L, Leg(s), Ankle(s), Feet CLAUDICATION (C): denies, B/L REST PAIN: denies, B/L PIGMENTATION: mottled, B/L Nails NAILS are: Elongated, overg rown, dystrophic, lytic, greater than 3mm thick, discolored and friable with crumbly malodorous subungual debris, with pain on palpation,TA, T1, T2, T3, T4, T5, T6, T7, T9, all other nails not described with characteristics as possessing mycosis are elongated, overgrown, and dystrophic
== END 2024-12-30 15:43 | disposition home or self-care (01) ==
LOC: HO.HMCHD 14:14
PROVIDERS: PCP Internal Medicine; Visit Provider Internal Medicine
DX: Z09 Encounter for follow-up examination after completed treatment for conditions other than malignant neoplasm (principal); I25.5 Ischemic cardiomyopathy

== ENCOUNTER → 2024-12-30 14:13 | Outpatient (BNVA) | payer MEDICARE, SELFPAY | PROVIDERS: PCP Internal Medicine; Visit Provider Internal Medicine | DX: I25.10 Atherosclerotic heart disease of native coronary artery without angina pectoris (principal); I25.5 Ischemic cardiomyopathy; I13.0 Hypertensive heart and chronic kidney disease with heart failure and stage 1 through stage 4 chronic kidney disease, or unspecified chronic kidney disease; I50.30 Unspecified diastolic (congestive) heart failure; N18.30 Chronic kidney disease, stage 3 unspecified; N43.3 Hydrocele, unspecified; Z09 Encounter for follow-up examination after completed treatment for conditions other than malignant neoplasm; Z86.73 Personal history of transient ischemic attack (TIA), and cerebral infarction without residual deficits; Z79.01 Long term (current) use of anticoagulants; Z95.810 Presence of automatic (implantable) cardiac defibrillator | CPT/HCPCS: 96127; 99202 ==

== ENCOUNTER 2025-01-05 14:37 | Outpatient (AMB) | payer MEDICARE, SELFPAY ==
--- NOTE | 2025-01-05 14:40 | HO.NEPHOV_ITS ---
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 Required: No Accompanied by: Spouse Allergies No Known Allergies [No Known Allergies*] Allergy (Verified 01/05/25 14:45) Medication List - Last Reconciled 01/05/25 by Yogi Fitzgerald MD amiodarone 200 mg PO BID apixaban (Eliquis) 5 mg PO BID atorvastatin 40 mg PO BEDTIME carvedilol 6.25 mg See Protocol PO BID clopidogrel 75 mg PO DAILY famotidine 20 mg PO DAILY furosemide (Lasix) 40 mg PO DAILY furosemide 60 mg PO DAILY hydralazine 50 mg (2 x 25 mg) PO BID ipratropium-albuterol 0.5 mg-3 mg(2.5 mg base)/3 mL 3 mL inhalation Q6H PRN isosorbide dinitrate 5 mg See Protocol PO BID melatonin 10 mg PO BEDTIME PRN Do you need a note to return to daycare/school/sports/work: No HPI Comments Details: 73-year-old male with 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 The patient was recently admitted to [facility] from 03/25-04/09 following cardiac arrest x3 with ventricular fibrillation and cardiogenic shock and ischemic cardiomyopathy with EF 30-35% with akinesis of anterior wall and apex. Cardiac catheterization at that time showed COLD ROLLER of the LAD and proximal right coronary artery with 70% stenosis in the circumflex artery. He had been referred to bypass surgery but was not felt to be a good candidate. Subsequently he developed a complete heart block and had a dual chamber ICD placed prior to discharging to short-term rehab. He was discharged on aspirin and Plavix as well as carvedilol 6.25 mg twice daily and isosorbide hydralazine combination. At the rehab, was noted to be confused from baseline though there is some question of post cardiac arrest encephalopathy due to anoxic brain injury. He was seen at [facility] during the hospitalization for chronic kidney disease. Baseline creatinine is around 1.6-1.8 mg/dL. He had cardiorenal syndrome and was successfully diuresed with intravenous agents Today he is here for follow-up. 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 Father No problems noted. Social History Household Members: Family Household Members Other:: Housing: House Do you presently have visiting nurse or other home services: No (Stopped services a 2 weeks ago) Patient Tobacco Use Status: Former Tobacco user e-Cigarette/Vaping Use: Former Use Second Hand Smoke Exposure: No Advance Directives Date on File: 09/12/24 service: No Current occupational status: retired Cognitive needs: No Hearing needs: No Vision needs: Yes (reading glasses) Physical Exam Vital Signs: Last Vital Signs Pulse 83 01/05/25 14:41 BP 140/84 H 01/05/25 14:56 Pulse Ox 97 01/05/25 14:41 Oxygen Delivery Method Room Air 01/05/25 14:41 BMI result Body Mass Index 42.8 Comfortable Neck supple no JVD. Lungs entry equal no rales. Heart S1-S2 heard no gallop or rub. Abdomen soft nontender. Neuro alert awake oriented. No asterixis. Extremities 2+ edema. Results Reviewed Nephrology Results: Hgb 13.2 g/dl (14.0-18.0) L 12/14/24 WBC 5.8 X10*3/uL (4.8-10.8) 12/14/24 Plt Count 129 X10*3/uL (160-400) L 12/14/24 Sodium 141 mmol/L (135-145) 12/18/24 Potassium 3.9 mmol/L (3.3-5.1) 12/18/24 Chloride 104 mmol/L (96-108) 12/18/24 Carbon Dioxide TNP 12/18/24 BUN 44 mg/dL (9-16) H 12/18/24 Creatinine 1.89 mg/dL (0.5-1.4) H 12/18/24 Calcium 8.6 mg/dL (8.4-10.2) 12/18/24 Urine Protein Trace mg/dL (Neg-Trace) 12/13/24 Assessment & Plan Assessment & Plan (1) CKD stage 3b, GFR 30-44 ml/min: Code(s): N18.32 - Chronic kidney disease, stage 3b Category: Medical Plan CKD in a setting of cardio renal syndrome Renal function is close to baseline Still appears fluid overloaded Encouraged to stay on lwo slat diet Increase LAsix to 60 mg QD ( from 40 mg QD plus 20 mg MWF) Would benefit from SGLT-2 inhibitors for cardio renal protection Orders: Orders Basic Metabolic Panel 3 Months N18.32 - Chronic kidney disease, stage 3b Complete Blood Count no Diff 3 Months N18.32 - Chronic kidney disease, stage 3b Coding Level of Care Code Est Pt Level 4 (17974) Diagnoses CKD stage 3b, GFR 30-44 ml/min N18.32
[2025-01-05 14:41] VITALS: BP 156/94; PULSE 83; O2SAT 97; BMI 42.8
[2025-01-05 14:56] VITALS: BP 140/84
--- OUTSIDE RECORDS SUMMARY | 2025-01-05 17:21 | XMS_ITS ---
Author Organization [facility] Address [address] [place] [address] Care Team Providers Care Quality Assurance Qa Lab Technician Name Role Phone Jose Manuel Escalera MD Primary Care Provider Unavaila Brandon Tse Unavailable [phone] Encounters Encounter Location Date Provider Diagnosis [address] [address] 02/24/2024 Brandon Lozano Plan Of Treatment Next Appt Details Provider Name:Brandon Lozano , 02/11/2025 01:00:00 PM, [address] [place] [address], [phone], Progress Notes * Aaron VALVERDEDOB:1950 (74 yo M)Acc No.[id number]:02/24/2024 Progress Note Patient:Aaron GARCIA Provider:?Brandon Lozano DPM :1950???Age:73 Y???Sex:Male Sulaiman e:02/24/2024 Address:[address] [place], [place] [id number] Pcp:Jose Manuel Escalera MD Subjective: * Chief [...] Lozano DPM Date:?2023 Generated for Laura moser/Scarlett/eTransmitting on:?01/05/2025 05:21 PM EDT
--- OUTSIDE RECORDS SUMMARY | 2025-01-05 17:21 | XMS_ITS ---
Author Organization [facility] Matilde andre Pancho Address [address] [place] [address] Care Team Providers Care Loss Prevention Research Engineer Name Role Phone Jose Manuel Escalera MD Primary Care Provider Brandon Stokes Unavailable [phone] Allergies No Known Allergies REASON FOR VISIT [...] Ordered Date Performed Result Body Sit e 47781-AOOLUFL NAIL, 6 OR MORE 10/15/2024 N/A 80140-GYUX SKIN LESIONS, OVER 4 10/15/2024 N/A Encounters Encounter Location Date Provider Diagnosis [facility] [place] [address] [place] [address] 10/15/2024 Brandon Marta Atherosclerosis of little traverse artery of both lower extremities, with unspecified presence of clinical manifestation I70.203 ; Tinea unguium B35.1 ; Pain in right toe(s) M79.674 and Pain in left toe(s) M79.675 Assessments Encounter Date Diagnosis (ICD Code) Assessment Notes Treatment Notes Treatment Clinical Notes Section Notes 10/15/2024 Atherosclerosis of little traverse artery of both lower extremities, with unspecified presence of clinical manifestation (ICD-10 - I70.203) Q7(A), Q8(2B), Q9(1B,2C) 10/15/2024 Tinea unguium (ICD-10 - B35.1) 10/15/2024 Pain in right toe(s) (ICD-10 - M79.674) 10/15/2024 Pain in left toe(s) (ICD-10 - M79.675) Plan Of Treatment Pending Test Test Name Order Date 27335-EESESNR NAIL, 6 OR MORE 10/15/2024 49604-RBUS SKIN LESIONS, OVER 4 10/15/19 25 Next Appt Details Follow Up: prn, Reason: Provider Name:Brandon Shey AlonsoMarta , 02/11/2025 01:00:00 PM, [address] [place] [address], [phone], Procedure Notes * Category Sub-Category Detail Notes [...] of a nail nipper and/or dremel-type grinder dresser, to a more viable healthy nail plate [...] to maintain effectiveness in symptomatic relief - 04855 Keratoma Treatment Parring or Cutting o f [...] instrumentation by the physician of record - 07779, Q88 Progress Notes * CLAUDIOAaronDOB:1950 (74 yo M)Acc No.[id number]:10/15/2024 Progress Note Patient:?Aaron VALVERDE Provider:?Brandon Lozano DPM :1950???Age:74 Y???Sex:Male Sulaiman e:10/15/2024 Address:[address] [place], [place] [phone] Pcp:Jose Manuel Escalera MD Subjective: * Chief [...] t Surgical History * Hospitalization/Major Diagno stic Procedure:?[facility] 03/2022 * Family History:?Mother: dece ased.?Father: [...] Heel(s), B/L.? Assessment: * Assessment: 1.?Atherosclerosis of little traverse artery of both lower extremities, with unspecified presence of clinical manifestation - I70.203 (Primary)???Notes :Q7(A), Q8(2B), Q9(1B,2C)???2.?Tinea unguium - B35.1???3.?Pain in right toe(s) - M79.674???4.?Pain in left toe(s) - M79.675??? Plan: * Treatment: 2.?Tinea unguium?Procedure: 10180-BRPMLWB NAIL, 6 OR MORE * Procedures:?Debride Nail [...] of a nail nipper and/or dremel-type grinder dresser, to a more viable healthy nail plate [...] to maintain effectiveness in symptomatic relief - 33026.?Keratoma Treatment:?Parring or Cutting of Benign Hyperkeratotic Lesion(s)?(-57) [...] instrumentation by the physician of record - 08968, Q88.? * Procedure Codes:?16299 DEBRI DE NAIL, 6 OR MORE, Modifiers: XS 85179 TRIM SKIN LESIONS, OVER 4, Modifiers: XS , Q8 * Follow Up:?prn * Images: * Sign off status: Completed true * Provider:?Brandon Lozano DPM Date:?2024 Generated for Laura moser/Scarlett/eTransmitting on:?01/05/2025 05:21 PM EDT History and Physical Notes * HPI (History of Present Illness) Category Sub-Category Detail Notes Category Not es At Risk footcare Pt States Last PCP Visit: Date: 5 Examination Category Sub-Category Detail Notes Category Not [...]
--- OUTSIDE RECORDS SUMMARY | 2025-01-05 17:21 | XMS_ITS | Patient Health Record ---
Author Organization [facility] Matilde jes Pancho Address [address] [place] [address] Care Team Providers Care Planisher Name Role Phone Jose Manuel Escalera MD Primary Care Provider Brandon Stokes Unavailable [phone] Allergies No Known Allergies Reason For Referral [...] W/U Status Risk Notes Problem Atherosclerosis of united [place]ub[place] arteries of the extremities ([id number]) Atherosclerosis of united [place] artery of both lower extremities, with unspecified presence of clinical manifestation (I70.203) Active confirmed Q7(A), Q8(2B), Q9(1B,2 C) Vital Signs Blood pressure diastolic 80 mm Hg 10/15/2024 Height 5 ft 10 in in 10/15/2024 Blood pressure systolic 117 mm Hg 10/15/2024 Weight 285 lbs 10/15/2024 BMI 40.89 kg/m2 10/15/2024 Procedures Procedure Date Ordered Date Performed Result Body Sit e 18788-OWQQJDZ NAIL, 6 OR MORE 10/15/2024 N/A 10329-QYJL SKIN LESIONS, OVER 4 10/15/2024 N/A Encounters Encounter Location Date Provider Diagnosis [facility] [address] [address] 10/15/2024 Brandon Lozano Atherosclerosis of united [place] artery of both lower extremities, with unspecified presence of clinical manifestation I70.203 ; Tinea unguium B35.1 ; Pain in right toe(s) M79.674 and Pain in left toe(s) M79.675 [facility] [address] [address] 02/23/2024 Brandon Lozano Assessments Encounter Date Diagnosis (ICD Code) Assessment Notes Treatment Notes Treatment Clinical Notes Section Notes 10/15/2024 Atherosclerosis of united [place] artery of both lower extremities, with unspecified presence of clinical manifestation (ICD-10 - I70.203) Q7(A), Q8(2B), Q9(1B,2C) 10/15/2024 Tinea unguium (ICD-10 - B35.1) 10/15/2024 Pain in right toe(s) (ICD-10 - M79.674) 10/15/2024 Pain in left toe(s) (ICD-10 - M79.675) Plan Of Treatment Pending Test Test Name Order Date 10796-IHDFKSO NAIL, 6 OR MORE 02/13/2021 46946-VNNMTYD NAIL, 6 OR MORE 05/29/2021 54208-CAZDEAB NAIL, 6 OR MORE 12/04/2021 46253-DNPEWRW NAIL, 6 OR MORE 04/05/2022 68161-VPUGTOO NAIL, 6 OR MORE 11/25/2023 54116-WOQPSTQ NAIL, 6 OR MORE 10/15/2024 97721-Vlafkuqz Plate 11/25/2023 51355-Nvepaehf Plate 04/05/2022 63788-Vqxryxlz Plate 05/29/2021 56731-GRDT SKIN LESIONS, OVER 4 05/29/20 70472-OSUK SKIN LESIONS, OVER 4 04/05/20 58931-JXWP SKIN LESIONS, OVER 4 12/05/19 51692-TNGG SKIN LESIONS, OVER 4 11/25/19 24 13371-EPKS SKIN LESIONS, OVER 4 10/15/19 31921-XJXC SKIN LESIONS, 2 TO 4 02/14/20 Next Appt Details Provider Name:Brandon Lozano , 02/11/2025 01:00:00 PM, [address] [place], [address], Insurance Providers Payer Name Payer Address Payer Phone Subscriber Number Group Number Insured Name Patient Relationship to Insured Coverage Start Date Coverage End Date [employer] [address] [place] [address] [id number] Aaron Valverde Self - patient is the insured Medical (General) History Medical History History ICD Code Back,Hip,and Knee pain Dementia High blood pressure Stroke Measles Mumps Chicken pox CAD Heart attack - March 25, 2024 Surgical History Surgery Date(Month/Year) Hospitalization History Reason Date(Month/Year) [facility] [place]
--- OUTSIDE RECORDS SUMMARY | 2025-01-05 17:21 | XMS_ITS | Clinical Summary ---
Author Organization [facility] Address [address] [place] [address], [place] [address] Care Team Providers Care Filling And Packing Supervisor Name Role Phone Unavailable Primary Care Provider [...] Ye ars (1 of 1 - PCV) 2001 Influenza Vaccine (Season Ended) 2025 Hepatitis B Vaccine Aged Out No longe r eligible based on patient's age to complete this topic Insurance [facility]
--- OUTSIDE RECORDS SUMMARY | 2025-01-05 17:21 | XMS_ITS ---
Author Organization [facility] Address [address] [place] [address] Care Team Providers Care Donkey Engine Firer/Fireman Name Role Phone Jose Manuel Escalera MD Primary Care Provider Unavaila Brandon Tse Unavailable [phone] REASON FOR VISIT cx 02/23 Encounters Encounter Location Date Provider Diagnosis [address] [address] 02/23/2024 Brandon Lozano Plan Of Treatment Next Appt Details Provider Name:Brandon Lozano , 02/11/2025 01:00:00 PM, [address] [place], [address], Progress Notes * Aaron VALVERDEDOB:1950 (73 yo M)Acc No.[id number]:02/23/2024 Patient:?Aaron Valverde :1950???Age:73 Y???Sex:Male Address:[address] [place] [address], [address] * true * Date:? Generated for Printi shanti/Scarlett/eTransmitting on:?01/05/2025 05:21 PM EDT
== END 2025-01-05 15:15 | disposition home or self-care (01) ==
LOC: HO.HKAM 14:37
PROVIDERS: PCP Internal Medicine; Referring Provider Internal Medicine; Visit Provider Internal Medicine Hypertension Specialist
DX: N18.32 Chronic kidney disease, stage 3b (principal)
CPT/HCPCS: 99214

== ENCOUNTER → 2025-01-05 14:37 | Outpatient (BNVA) | payer MEDICARE, SELFPAY | PROVIDERS: PCP Internal Medicine; Referring Provider Internal Medicine; Visit Provider Internal Medicine Hypertension Specialist | DX: I12.9 Hypertensive chronic kidney disease with stage 1 through stage 4 chronic kidney disease, or unspecified chronic kidney disease (principal); N18.32 Chronic kidney disease, stage 3b; I69.30 Unspecified sequelae of cerebral infarction | CPT/HCPCS: 99212 ==

== ENCOUNTER 2025-01-07 12:21 | Outpatient (AMB) | payer MEDICARE, SELFPAY ==
--- NOTE | 2025-01-07 12:56 | A.OFFVIS_ITS ---
Vital Signs 01/07/25 13:00 Height 5 ft 7 in Weight 275 lb 9.245 oz BMI 43.2 BP 120/66 Blood Pressure Location Lt brachial Position Sitting Pulse 80 Pulse Source Monitor Intake Visit Reasons: 3m follow up Intake Note: 3 mth f/up [employer] Pack[employer] Platemaker Required: No Accompanied by: Spouse Allergies No Known Allergies [No Known Allergies*] Allergy (Verified 01/05/25 14:45) Medication List - Last Reconciled 01/07/25 by AUSTIN WhitakerC amiodarone 200 mg PO BID apixaban (Eliquis) 5 mg PO BID atorvastatin 40 mg PO BEDTIME carvedilol 6.25 mg See Protocol PO BID clopidogrel 75 mg PO DAILY famotidine 20 mg PO DAILY furosemide (Lasix) 40 mg PO DAILY furosemide 60 mg PO DAILY hydralazine 50 mg (2 x 25 mg) PO BID ipratropium-albuterol 0.5 mg-3 mg(2.5 mg base)/3 mL 3 mL inhalation Q6H PRN isosorbide dinitrate 5 mg See Protocol PO BID melatonin 10 mg PO BEDTIME PRN HPI HPI 3m follow up: Details: Aaron is a 74-year-old male with past medical history of hypertension, hyperlipidemia, chronic kidney disease, CVA, VFib arrest 03/2024, status post ICD placement, CAD/FL, ischemic cardiomyopathy, atrial flutter who was recently admitted to [facility] with increased shortness of breath and treated for her acute hypoxic respiratory failure with COPD exacerbation and Congestive heart failure. He was discharged with Lasix 40 mg alternating with 60 mg. Since then he has notice some leg edema and was seen by his utility worker driver. Lasix was in was increased up to 60 mg daily. Today he reports that he has been doing well since his last discharge on 12/18/2024. He now has updraft treatments that he can use at home. He does use them periodically when he has shortness of breath. He has notice some leg edema which he says is now starting to improve now that the Lasix dose is higher. He has been monitoring his weight daily at home and finds that it has been stable. He is denying shortness of breath with at rest. He will get some shortness of breath with exertion. He sleeps with 2 pillows which is his norm. No cough or recent illness. He currently has some mild edema in his lower legs bilaterally. Not having any chest discomfort at rest or with activity. He has not been having any heart palpitations, lightheadedness, presyncope, syncope, no falls. He admits to being mostly sedentary and just doing things around the house. He is not engage in any routine exercise. He has been taking all meds as directed. His is present. She reports that he follows a low-salt diet. [facility] Medical History CKD stage 3b, GFR 30-44 ml/min COPD (chronic obstructive pulmonary disease) Morbid obesity with BMI of 40.0-44.9, adult Biventricular ICD (implantable cardioverter-defibrillator) in place Paroxysmal atrial flutter Coronary artery disease Ischemic cardiomyopathy Atrial flutter History of cardiac arrest Complete heart block Ventilator associated pneumonia STEMI (ST elevation myocardial infarction) Hypertension Hx of jail use of blood thinners Surgical History S/P ICD (internal cardiac defibrillator) procedure Family History Mother No problems noted. Father No problems noted. Social History Household Members: Family Household Members Other:: Housing: House Do you presently have visiting nurse or other home services: No (Stopped services a 2 weeks ago) Patient Tobacco Use Status: Former Tobacco user e-Cigarette/Vaping Use: Former Use Second Hand Smoke Exposure: No Advance Directives Date on File: 09/12/24 service: No Current occupational status: retired Cognitive needs: No Hearing needs: No Vision needs: Yes (reading glasses) Review of Systems Const All systems reviewed & are unremarkable except as noted in HPI and below Denies chills, Denies fatigue, Denies fever(s), Denies frequent falls, Denies weakness, Denies weight gain and Denies weight loss ENT Denies dizziness Card Denies chest pain, Reports leg edema, Denies lightheadedness, Denies palpitations, Denies dyspnea and Reports dyspnea on exertion Resp Denies cough, Denies dyspnea and Reports dyspnea on exertion GI Denies hematochezia Musc Denies abnormal gait, Denies muscle weakness, Denies numbness, Denies radiating pain into limb and Denies tingling Neuro Denies abnormal gait, Denies dizziness, Denies frequent falls, Denies numbness, Denies tingling and Denies weakness Endo Denies fatigue and Denies palpitations Physical Exam Vital Signs: Last Vital Signs BP 120/66 01/07/25 13:00 BMI result Body Mass Index 43.2 Const General: cooperative, healthy appearing, comfortable and no acute distress Orientation/consciousness: patient oriented x3 Neck Neck: Yes normal visual inspection Resp Effort & Inspection: normal respiratory effort Auscultation: clear to auscultation bilaterally, no crackles, no rales, no rhonchi and no wheezes Cardio Jugular venous distension: no JVD Rate: regular rate Rhythm: regular rhythm Heart sounds: S1 normal heart sound present, S2 normal heart sound present, no murmurs and no rubs Neuro General: patient oriented x3 Extrem Other: +1 bilateral lower leg edema. ambulates with cane. General: No calf tenderness Psych Appearance: grossly normal Mental Status: mental status grossly normal Speech and movement: Normal speech and movement present Office Procedures EKG Details: Today, read by me, atrial sensed, ventricular paced rhythm, can not exclude prior inferior lateral FL, rate 80 07379-Eeuxxjciilxgrmqbl, Complete Assessment & Plan Assessment & Plan (1) Coronary artery disease: Code(s): I25.10 - Atherosclerotic heart disease of [place] coronary artery without angina pectoris Category: Medical Plan: VFib arrest March 2024 with successful resuscitation. He was found to have anterior STEMI. Cardiac catheterization showed mid SENIOR BUSINESS ANALYST of the LAD with minimal collaterals, left circumflex 70% proximal stenosis, RCA proximal SENIOR BUSINESS ANALYST. Notes indicate he could not be revascularized surgically. Echocardiogram initially showed EF 30-35% with wall motion abnormalities. He underwent Bi V ICD was placement. He had been following with [facility] cardiology but change to our office since it is closer to his home. Last echo in our system done 09/13/2024 shows EF 30-35%, mid anterior lateral hypokinetic, mid anterior septal, mid inferior lateral akinetic, left atrium severely dilated, mild pulmonary hypertension. He has had heart failure admissions. His medications have been increased on subsequent admissions. He is currently on hydralazine 50 mg b.i.d., Isordil 5 mg b.i.d., Jardiance 10 mg daily and carvedilol 6.25 mg b.i.d. for neurohormonal modulation. He is not on Marlo or Arb due to chronic kidney disease. He is not on aspirin as he is on Eliquis. He is on Plavix. Continue current management. Cardiology follow-up 3 months, sooner if needed -to evaluate for heart failure symptoms and he is due for a device check. (2) Ischemic cardiomyopathy: Code(s): I25.5 - Ischemic cardiomyopathy Category: Medical Plan: History of ischemic cardiomyopathy since his recent FL. most recent echo as above. He does have a Bi V ICD in place and interrogation last visit showed he is Bi V pacing greater than 99%. On exam he does have some mild ankle edema otherwise does not appear fluid overloaded. Continue low-salt diet, less than 2 g daily. Continue home weight monitoring and call if weight gain over 3 lb in a day or 5 lb in a week. Continue Lasix 60 mg daily. He does have known chronic kidney disease. His most recent labs done 12/18/2024 showed creatinine 1.89 which is typical for him. He follows closely with Nephrology. Signs and symptoms of heart failure reviewed with him. (3) History of cardiac arrest: Comment: March 2024 Code(s): Z86.74 - Personal history of sudden cardiac arrest Category: Medical Plan: As above (4) Biventricular ICD (implantable cardioverter-defibrillator) in place: Code(s): Z95.810 - Presence of automatic (implantable) cardiac defibrillator Category: Medical Plan: [place] Bi V ICD in place. Functioning normally on interrogation last visit. Battery 7 years. He has remote monitoring in use. Next office interrogation due in 3 months. (5) Hypertension: Code(s): I10 - Essential (primary) hypertension Category: Medical Plan: Blood pressure goal less than 130/80. Blood pressure normal at this time. Meds reviewed and no changes. (6) Paroxysmal atrial flutter: Code(s): I48.92 - Unspecified atrial flutter Category: Medical Plan: Notes indicate history of paroxysmal atrial flutter. EKG today is showing atrial sensed, ventricular paced rhythm. He has not felt any heart palpitations. Will continue to follow remotely. Continue Eliquis for anticoagulation. Continue carvedilol for heart rate control. (7) Hospital discharge follow-up: Code(s): Z09 - Encounter for follow-up examination after completed treatment for conditions other than malignant neoplasm Category: Medical Plan: As above Plan Time spent on chart review, documentation, interview and assessment Coding Level of Care Code Est Pt Level 4 (80437) Complex EM visit Add On G2211 Diagnoses Coronary artery disease I25.10 Ischemic cardiomyopathy I25.5 History of cardiac arrest Z86.74 Biventricular ICD (implantable cardioverter-defibrillator) in place Z95.810 Hypertension I10 Paroxysmal atrial flutter I48.92 Hospital discharge follow-up Z09 CPT Codes EKG - CPT: 09773-Fzndixgcivmikbtjs, Complete ([id number]) Time Spent (min) 28
[2025-01-07 13:00] VITALS: BP 120/66; PULSE 80; BMI 43.2
--- OUTSIDE RECORDS SUMMARY | 2025-01-07 13:08 | XMS_ITS ---
Author Organization [facility] Address [address] [place] [address] Care Team Providers Care Warehouse Distribution Specialist Name Role Phone Jose Manuel Escalera MD Primary Care Provider Unavaila Brandon Tse Unavailable [phone] Encounters Encounter Location Date Provider Diagnosis [address] [address] 02/24/2024 Brandon Lozano Plan Of Treatment Next Appt Details Provider Name:Brandon Lozano , 02/11/2025 01:00:00 PM, [address] [place] [address], [phone], Progress Notes * Aaron VALVERDEDOB:1950 (74 yo M)Acc No.[id number]:02/24/2024 Progress Note Patient:Aaron GARCIA Provider:?Brandon Lozano DPM :1950???Age:73 Y???Sex:Male Sulaiman e:02/24/2024 Address:[address] [place], [place] [phone] Pcp:Jose Manuel Escalera MD Subjective: * Chief [...] Lozano DPM Date:?2023 Generated for Laura moser/Scarlett/eTransmitting on:?01/07/2025 01:08 PM EDT
--- OUTSIDE RECORDS SUMMARY | 2025-01-07 13:08 | XMS_ITS ---
Author Organization [facility] Address [address] [place] [address] Care Team Providers Care Foam Fabricator Name Role Phone Jose Manuel Escalera MD Primary Care Provider Unavaila Brandon Tse Unavailable [phone] REASON FOR VISIT cx 02/23 Encounters Encounter Location Date Provider Diagnosis [address] [address] 02/23/2024 Brandon Lozano Plan Of Treatment Next Appt Details Provider Name:Brandon Lozano , 02/11/2025 01:00:00 PM, [address] [place], [address], Progress Notes * Aaron VALVERDEDOB:1950 (73 yo M)Acc No.[id number]:02/23/2024 Patient:?Aaron Valverde :1950???Age:73 Y???Sex:Male Address:[address] [place] [address], [address] * true * Date:? Generated for Printi shanti/Scarlett/eTransmitting on:?01/07/2025 01:07 PM EDT
--- OUTSIDE RECORDS SUMMARY | 2025-01-07 13:08 | XMS_ITS | Clinical Summary ---
Author Organization [facility] Facility Address [address] [place] [address], [place] [address] Care Team Providers Care Green Meat Grader Name Role Phone Unavailable Primary Care Provider [...] patient's age to complete this topic Insurance [facility]
--- OUTSIDE RECORDS SUMMARY | 2025-01-07 13:08 | XMS_ITS ---
Author Organization [facility] Matilde andre Pancho Address [address] [place] [address] Care Team Providers Care Transportation Agent Name Role Phone Jose Manuel Escalera MD Primary Care Provider Brandon Stokes Unavailable [phone] Allergies No Known Allergies REASON FOR VISIT [...] No Points 0 Interpretation Negative Vital Signs Blood pressure systolic 117 mm Hg 10/15/19 25 Blood pressure diastolic 80 mm Hg 025 Height 5 ft 10 in in 10/15/2024 Weight 285 lbs 10/15/2024 BMI 40.89 kg/m2 10/15/2024 Procedures Procedure Date Ordered Date Performed Result Body Sit e 89400-NUKVMXU NAIL, 6 OR MORE 10/15/2024 N/A 40270-UKSP SKIN LESIONS, OVER 4 10/15/2024 N/A Encounters Encounter Location Date Provider Diagnosis [facility] [place] [address] [place] [address] 10/15/2024 Brandon Lozano Atherosclerosis of [place] artery of both lower extremities, with unspecified presence of clinical manifestation I70.203 ; Tinea unguium B35.1 ; Pain in right toe(s) M79.674 and Pain in left toe(s) M79.675 Assessments Encounter Date Diagnosis (ICD Code) Assessment Notes Treatment Notes Treatment Clinical Notes Section Notes 10/15/[address] [place] artery of both lower extremities, with unspecified presence of clinical manifestation (ICD-10 - I70.203) Q7(A), Q8(2B), Q9(1B,2C) 10/15/2024 Tinea unguium (ICD-10 - B35.1) 10/15/2024 Pain in right toe(s) (ICD-10 - M79.674) 10/15/2024 Pain in left toe(s) (ICD-10 - M79.675) Plan Of Treatment Pending Test Test Name Order Date 09769-FLAXTIR NAIL, 6 OR MORE 10/15/2024 18894-HUYD SKIN LESIONS, OVER 4 10/15/19 25 Next Appt Details Follow Up: prn, Reason: Provider Name:Brandon Lozano , 02/11/2025 01:00:00 PM, [address] [place] [address], [id number], Procedure Notes * Category Sub-Category Detail Notes [...] use of a nail nipper and/or dremel-type centerless grinder set up operator, to a more viable healthy nail plate [...] to maintain effectiveness in symptomatic relief - 27871 Keratoma Treatment Parring or Cutting o f [...] instrumentation by the physician of record - 36791, Q88 Progress Notes * CLAUDIOAaronDOB:1950 (74 yo M)Acc No.[id number]:10/15/2024 Progress Note Patient:?Aaron VALVERDE Provider:?Brandon Lozano DPM :1950???Age:74 Y???Sex:Male Sulaiman e:10/15/2024 Address:[address] [place], [place] [id number] Pcp:Jose Manuel Escalera MD Subjective: * Chief [...] t Surgical History * Hospitalization/Major Diagno stic Procedure:?[facility] 03/2022 * Family History:?Mother: dece ased.?Father: [...] Heel(s), B/L.? Assessment: * Assessment: 1.?Atherosclerosis of [place] artery of both lower extremities, with unspecified presence of clinical manifestation - I70.203 (Primary)???Notes :Q7(A), Q8(2B), Q9(1B,2C)???2.?Tinea unguium - B35.1???3.?Pain in right toe(s) - M79.674???4.?Pain in left toe(s) - M79.675??? Plan: * Treatment: 2.?Tinea unguium?Procedure: 93294-MJDWWUM NAIL, 6 OR MORE * Procedures:?Debride Nail [...] use of a nail nipper and/or dremel-type centerless grinder set up operator, to a more viable healthy nail plate [...] to maintain effectiveness in symptomatic relief - 05520.?Keratoma Treatment:?Parring or Cutting of Benign Hyperkeratotic Lesion(s)?(-57) [...] instrumentation by the physician of record - 12585, Q88.? * Procedure Codes:?71764 DEBRI DE NAIL, 6 OR MORE, Modifiers: XS 35339 TRIM SKIN LESIONS, OVER 4, Modifiers: XS , Q8 * Follow Up:?prn * Images: * Sign off status: Completed true * Provider:?Brandon Lozano DPM Date:?2024 Generated for Laura moser/Scarlett/eTransmitting on:?01/07/2025 01:08 PM EDT History and Physical Notes * [...]
--- OUTSIDE RECORDS SUMMARY | 2025-01-07 13:08 | XMS_ITS | Patient Health Record ---
Author Organization [facility] Matilde jes Pancho Address [address] [place] [address] Care Team Providers Care Blaster Helper Name Role Phone Jose Manuel Escalera MD Primary Care Provider Brandon Stokes Unavailable [phone] Allergies No Known Allergies Reason For Referral [...] W/U Status Risk Notes Problem Atherosclerosis of [place] arteries of the extremities ([id number]) Atherosclerosis of [place] artery of both lower extremities, with unspecified presence of clinical manifestation (I70.203) Active confirmed Q7(A), Q8(2B), Q9(1B,2 C) Vital Signs Blood pressure diastolic 80 mm Hg 10/15/2024 Height 5 ft 10 in in 10/15/2024 Blood pressure systolic 117 mm Hg 10/15/2024 Weight 285 lbs 10/15/2024 BMI 40.89 kg/m2 10/15/2024 Procedures Procedure Date Ordered Date Performed Result Body Sit e 92539-GZZRGOB NAIL, 6 OR MORE 10/15/2024 N/A 24859-LGXG SKIN LESIONS, OVER 4 10/15/2024 N/A Encounters Encounter Location Date Provider Diagnosis [facility] [address] [address] 10/15/2024 Brandon Lozano Atherosclerosis of [place] artery of both lower extremities, with unspecified presence of clinical manifestation I70.203 ; Tinea unguium B35.1 ; Pain in right toe(s) M79.674 and Pain in left toe(s) M79.675 [facility] [address] [address] 02/23/2024 Brandon Lozano Assessments Encounter Date Diagnosis (ICD Code) Assessment Notes Treatment Notes Treatment Clinical Notes Section Notes 10/15/2024 Atherosclerosis of [place] artery of both lower extremities, with unspecified presence of clinical manifestation (ICD-10 - I70.203) Q7(A), Q8(2B), Q9(1B,2C) 10/15/2024 Tinea unguium (ICD-10 - B35.1) 10/15/2024 Pain in right toe(s) (ICD-10 - M79.674) 10/15/2024 Pain in left toe(s) (ICD-10 - M79.675) Plan Of Treatment Pending Test Test Name Order Date 48938-MAWPGEU NAIL, 6 OR MORE 02/13/2021 05627-UTAXKLH NAIL, 6 OR MORE 05/29/2021 16576-BDNDQSA NAIL, 6 OR MORE 12/04/2021 44666-HXUCWXQ NAIL, 6 OR MORE 04/05/2022 68175-FMLKQGI NAIL, 6 OR MORE 11/25/2023 28511-JQKFCUZ NAIL, 6 OR MORE 10/15/2024 29838-Fprkbpjo Plate 11/25/2023 54800-Xkvonfnp Plate 04/05/2022 25020-Mhsytzpg Plate 05/29/2021 79825-DKNF SKIN LESIONS, OVER 4 05/29/20 60201-POTL SKIN LESIONS, OVER 4 04/05/20 75843-TDQT SKIN LESIONS, OVER 4 12/05/19 37756-VUBJ SKIN LESIONS, OVER 4 11/25/19 24 75262-RFJR SKIN LESIONS, OVER 4 10/15/19 07870-ZKBO SKIN LESIONS, 2 TO 4 02/14/20 Next Appt Details Provider Name:Brandon Lozano , 02/11/2025 01:00:00 PM, [address] [place], [address], Insurance Providers Payer Name Payer Address Payer Phone Subscriber Number Group Number Insured Name Patient Relationship to Insured Coverage Start Date Coverage End Date [employer] [place] [employer]age [address] [place] [address] [id number] Aaron Valverde Self - patient is the insured Medical (General) History Medical History History ICD Code Back,Hip,and Knee pain Dementia High blood pressure Stroke Measles Mumps Chicken pox CAD Heart attack - March 25, 2024 Surgical History Surgery Date(Month/Year) Hospitalization History Reason Date(Month/Year) [facility] [place]
== END 2025-01-07 13:28 | disposition home or self-care (01) ==
LOC: HO.HCS 12:21
PROVIDERS: PCP Internal Medicine; Visit Provider Nurse Practitioner Family
DX: I25.10 Atherosclerotic heart disease of native coronary artery without angina pectoris (principal); I25.5 Ischemic cardiomyopathy; Z86.74 Personal history of sudden cardiac arrest; Z95.810 Presence of automatic (implantable) cardiac defibrillator; I10 Essential (primary) hypertension; I48.92 Unspecified atrial flutter; Z09 Encounter for follow-up examination after completed treatment for conditions other than malignant neoplasm
CPT/HCPCS: 93010; 99214; G2211

== ENCOUNTER 2025-01-07 12:21 | Outpatient (REF) | payer MEDICARE, SELFPAY ==
--- OUTSIDE RECORDS SUMMARY | 2025-01-07 13:57 | XMS_ITS | Clinical Summary ---
Author Organization [facility] Facility Address [address] [place] [address], [place] [address] Care Team Providers Care Glove Brusher Name Role Phone Unavailable Primary Care Provider [...] age to complete this topic Insurance [facility]
[2025-01-07 14:01] LABS: MANUAL DIFF FLAG NO
[2025-01-07 14:10] LABS: Basophils Percent Auto 0.7 % (0-2); Eosinophils Absolute Auto 0.1 X10*3/uL (0.0-0.4); Eosinophils Percent Auto 2.2 % (0-4); Hematocrit 39.2 % (42.0-52.0); Hemoglobin 12.6 g/dl (14.0-18.0); Imm Gran Abs Auto 0.02 X10*3/uL (0.00-0.03); Imm Gran Pct Auto 0.4 % (0.0-0.4); Lymphocytes Absolute Auto 0.7 X10*3/uL (1.2-4.9); Mean Corpuscular HGB Conc 32.1 g/dl (31.0-36.0); Mean Corpuscular Hemoglobin 29.5 pg (27.0-33.0); Mean Corpuscular Volume 91.8 fL (80.0-98.0); Mean Platelet Volume 9.1 fL (9.4-12.4); Monocytes Absolute Auto 0.5 X10*3/uL (0.1-1.2); Monocytes Percent Auto 10.7 % (2-11); Neutrophils Absolute Auto 3.2 x10*3/uL (2.0-8.3); Platelet Count 133 X10*3/uL (160-400); Red Blood Count 4.27 X10*6/uL (4.60-5.80); Red Cell Distribution Width 14.9 % (11.0-16.0); White Blood Count 4.5 X10*3/uL (4.8-10.8)
[2025-01-07 14:32] LABS: Estimated Average Glucose 114 mg/dL; Hemoglobin A1C 183.0549 umol/L; Hemoglobin A1c % 5.6 % (<6.0); Total Hemoglobin (HGBA1C) 4914.5177 umol/L
[2025-01-07 15:40] LABS: Alanine Aminotransferase 18 U/L (0-40); Albumin Level 3.5 g/dL (3.5-5.0); Aspartate Amino Transferase 26 U/L (5-37); Bilirubin Total 0.5 mg/dL (0.0-1.0); Blood Urea Nitrogen 24 mg/dL (9-16); Calcium 8.6 mg/dL (8.4-10.2); Chloride 105 mmol/L (96-108); Estimated Glomerular Filt Rate 37; Glucose Random 94 mg/dL (60-115); Potassium 4.3 mmol/L (3.3-5.1); Sodium 142 mmol/L (135-145); TSH reflex Free T4 1.39 uIU/mL (0.32-4.0); Total Protein 6.4 g/dL (6.5-8.0)
[2025-01-07 19:04] LABS: Alkaline Phosphatase 127 U/L (39-117)
== END 2025-01-07 12:22 | disposition home or self-care (01) ==
LOC: HO.LAB 12:21
PROVIDERS: Absent Provider Internal Medicine; PCP Internal Medicine; Visit Provider Nurse Practitioner Family
DX: I25.10 Atherosclerotic heart disease of native coronary artery without angina pectoris (principal); I25.5 Ischemic cardiomyopathy; Z86.74 Personal history of sudden cardiac arrest; Z95.810 Presence of automatic (implantable) cardiac defibrillator; I10 Essential (primary) hypertension; I48.92 Unspecified atrial flutter; Z09 Encounter for follow-up examination after completed treatment for conditions other than malignant neoplasm; J44.1 Chronic obstructive pulmonary disease with (acute) exacerbation; I50.23 Acute on chronic systolic (congestive) heart failure; N18.30 Chronic kidney disease, stage 3 unspecified; Z13.1 Encounter for screening for diabetes mellitus
CPT/HCPCS: 36415; 80053; 83036; 84443; 85025; 93005; 99212

== ENCOUNTER → 2025-01-21 23:59 | Outpatient (BNV) | payer MEDICARE, SELFPAY ==
--- NOTE | 2025-03-01 21:19 | MHC.OFFVIS ---
Intake Visit Reasons: Remote device ck-St samira Allergies No Known Allergies [No Known Allergies*] Allergy (Verified 02/22/25 13:59) [facility] Medical History CKD stage 3b, GFR 30-44 ml/min COPD (chronic obstructive pulmonary disease) Morbid obesity with BMI of 40.0-44.9, adult Biventricular ICD (implantable cardioverter-defibrillator) in place Paroxysmal atrial flutter Coronary artery disease Ischemic cardiomyopathy Atrial flutter History of cardiac arrest Complete heart block Ventilator associated pneumonia STEMI (ST elevation myocardial infarction) Hypertension Hx of correction use of blood thinners Surgical History S/P ICD (internal cardiac defibrillator) procedure Family History Mother No problems noted. Father No problems noted. Social History Household Members: Spouse Household Members Other:: Housing: Apartment Do you presently have visiting nurse or other home services: No Patient Tobacco Use Status: Former Tobacco user Tobacco use type: Cigarette e-Cigarette/Vaping Use: Never Used Second Hand Smoke Exposure: No Advance Directives Date on File: 09/12/24 service: Yes Current occupational status: retired Cognitive needs: No Hearing needs: No Vision needs: Yes (reading glasses) Office Procedures Cardiac Device Check Cardiac Device Check Details: BiV AICD Good battery life PRACTICE OR STUDENT TEACHER> 99% Short episode of Afib recorded (known Afib) [id number] Cardiac Device Interrogation, pacemaker or defibrillator Procedure code (CPT) selection complete Assessment & Plan Assessment & Plan (1) Biventricular ICD (implantable cardioverter-defibrillator) in place: Code(s): Z95.810 - Presence of automatic (implantable) cardiac defibrillator Category: Medical Plan: (2) CHF (congestive heart failure): Code(s): I50.9 - Heart failure, unspecified Category: Medical Plan Coding Level of Care Code Procedure Only Diagnoses Biventricular ICD (implantable cardioverter-defibrillator) in place Z95.810 CHF (congestive heart failure) I50.9 CPT Codes Cardiac Device Check - Cardiac Device 14: [id number] Cardiac Device Interrogation, pacemaker or defibrillator ([id number])
== END ==
PROVIDERS: PCP Internal Medicine; Visit Provider Internal Medicine Cardiovascular Disease
DX: I50.9 Heart failure, unspecified (principal); Z95.810 Presence of automatic (implantable) cardiac defibrillator
CPT/HCPCS: 93295

== ENCOUNTER 2025-01-23 02:12 | Inpatient (IN) | payer MEDICARE, SELFPAY ==
[2025-01-23] VITALS (11 sets, daily range): BP systolic 104–172; BP diastolic 49–90; PULSE 73–87; RESP 15–24; TEMP 36.1–36.8; O2SAT 84–92; BMI 41.0
--- NOTE | ~2025-01-23 | XR_ITS ---
CLINICAL HISTORY: sob 1 view chest x-ray Comparison: CR/SR - XR CHEST 4 VIEWS - 12/16/24 07:59 EDT CR/SR - XR CHEST 1V - 12/13/24 09:38 EDT Findings: Perihilar and basilar pulmonary opacities with layering left-sided effusion. Normal size heart. No acute fracture. Left anterior chest wall pacemaker. IMPRESSION: Perihilar and basilar infiltrates or edema with layering left-sided effusion. This document has been electronically signed by: Rajat Jordan MD, PHD on 01/23/2025 04:26:23
--- NOTE | 2025-01-23 02:32 | ECG_ITS ---
Test Reason : FLUID RETENTION Blood Pressure : */* mmHG Vent. Rate : 76 BPM Atrial Rate : 76 BPM P-R Int : 184 ms QRS Dur : 132 ms QT Int : 454 ms P-R-T Axes : 74 264 32 degrees QTcB Int : 510 ms Atrial-sensed ventricular-paced rhythm Abnormal ECG When compared with ECG of 13-Dec-2024 09:12, Vent. rate has decreased by 7 bpm Referred By: Generic ED Physician Electronically Signed By: DUSTIN GARCIA
--- NOTE | 2025-01-23 02:53 | PC.NURSE ---
bibi and md made aware of pt pt desat to 88% ra placed on 2 lpm nc
[2025-01-23 02:54] LABS: MANUAL DIFF FLAG NO
[2025-01-23 02:57] LABS: Basophils Percent Auto 0.5 % (0-2); Eosinophils Absolute Auto 0.1 X10*3/uL (0.0-0.4); Eosinophils Percent Auto 0.9 % (0-4); Hematocrit 35.2 % (42.0-52.0); Hemoglobin 11.6 g/dl (14.0-18.0); Imm Gran Abs Auto 0.05 X10*3/uL (0.00-0.03); Imm Gran Pct Auto 0.9 % (0.0-0.4); Lymphocytes Absolute Auto 0.7 X10*3/uL (1.2-4.9); Lymphocytes Percent Auto 12.5 % (20-40); Mean Corpuscular Hemoglobin 29.7 pg (27.0-33.0); Mean Platelet Volume 9.1 fL (9.4-12.4); Monocytes Absolute Auto 0.7 X10*3/uL (0.1-1.2); Monocytes Percent Auto 11.8 % (2-11); Neutrophils Absolute Auto 4.2 x10*3/uL (2.0-8.3); Neutrophils Percent Auto 73.4 % (45-73); Platelet Count 136 X10*3/uL (160-400); Red Blood Count 3.91 X10*6/uL (4.60-5.80); Red Cell Distribution Width 15.5 % (11.0-16.0); White Blood Count 5.7 X10*3/uL (4.8-10.8)
[2025-01-23 03:28] LABS: B Type Natriuretic Peptide 202 pg/mL (<100); Troponin-I High Sensitivity 22.2 ng/L (<3.5-35.0)
[2025-01-23 03:33] LABS: Alanine Aminotransferase 13 U/L (0-40); Albumin Level 3.5 g/dL (3.5-5.0); Alkaline Phosphatase 125 U/L (39-117); Anion Gap 27 (12-20); Aspartate Amino Transferase 27 U/L (5-37); Bilirubin Total 0.5 mg/dL (0.0-1.0); Blood Urea Nitrogen 25 mg/dL (9-16); Calcium 8.5 mg/dL (8.4-10.2); Carbon Dioxide 12 mmol/L (22-29); Chloride 106 mmol/L (96-108); Creatinine Clr Calc Pharmacy 45.1; Estimated Glomerular Filt Rate 34; Glucose Random 103 mg/dL (60-115); Potassium 3.3 mmol/L (3.3-5.1); Sodium 142 mmol/L (135-145); Total Protein 6.2 g/dL (6.5-8.0)
--- NOTE | 2025-01-23 05:26 | ED_ITS ---
HPI - Male Genitourinary General Chief complaint: Urogenital-Male Stated complaint: Testicular swelling from HTN, BP 172/90 Time Seen by Provider: 01/23/25 05:12 Source: patient and EMS Mode of arrival: EMS Limitations: no limitations History of Present Illness ED Provider: Dr. Li Wade HPI Narrative: Patient comes to the emergency room reporting testicular swelling. Patient was recently discharged from the hospital, patient had an ultrasound done, did not show any torsion. Patient was instructed to follow-up with urology. Patient denies any chest pain or shortness of breath. Patient denies pain with urination. Related Data Home Medications ?Medication ?Instructions ?Recorded ?Confirmed atorvastatin 40 mg tablet 40 mg PO BEDTIME 04/19/24 01/07/25 clopidogrel 75 mg tablet 75 mg PO DAILY 04/19/24 01/07/25 famotidine 20 mg tablet 20 mg PO DAILY 04/19/24 01/07/25 amiodarone 200 mg tablet 200 mg PO BID 07/01/24 01/07/25 melatonin 10 mg tablet 10 mg PO BEDTIME PRN Sleep 12/14/24 01/07/25 furosemide 20 mg tablet 60 mg PO DAILY edema 01/05/25 01/07/25 Previous Rx's ?Medication ?Instructions ?Recorded apixaban 5 mg tablet (Eliquis) 5 mg PO BID #20 tabs 04/22/24 carvedilol 3.125 mg tablet 6.25 mg PO BID #60 tabs 07/03/24 hydralazine 25 mg tablet 50 mg (2 x 25 mg) PO BID #120 tabs 07/03/24 isosorbide dinitrate 5 mg tablet 5 mg PO BID #60 tabs 07/03/24 furosemide 40 mg tablet (Lasix) 40 mg PO DAILY #90 tabs 12/10/24 ipratropium 0.5 mg-albuterol 3 mg 3 ml inhalation Q6H PRN shortness 01/17/25 (2.5 mg base)/3 mL nebulization of breath/wheeze #25 ea soln Allergies Allergy/AdvReac Type Severity Reaction Status Date / Time No Known Allergies Allergy Verified 01/23/25 02:22 [No Known Allergies*] Review of Systems 2 Review of Systems: Constitutional : No Weight loss, No Fever, No Chills, No Night Sweats, No Fatigue, No Malaise ENT/Mouth : No Hearing loss, No Ear Pain, No Nasal Congestion, No Sinus Pain, No Hoarseness, No sore throat, No Rhinorrhea, No Swallowing Difficulty Eyes: No Eye Pain, No Swelling, No Redness, No Foreign Body, No Discharge, No Vision Changes Cardiovascular : No Chest Pain, No SOB, No Dyspnea on Exertion, No Orthopnea, No Edema, No Palpitations Respiratory : No Cough, No Sputum, No Wheezing, No Smoke Exposure, No Dyspnea Gastrointestinal : No Nausea, No Vomiting, No Diarrhea, No Constipation, No abdominal Pain, No Hematochezia, No Melena Genitourinary : Complaining of acute on chronic testicular/scrotal swelling, No Dysuria, No Urinary Frequency, No Hematuria, No Urinary Incontinence, No Urgency, No Flank Pain, No Urinary Flow Changes, No Hesitancy Musculoskeletal : No joint pain, No Myalgias, No Joint Swelling Skin : No Skin Lesions, No rash Neuro : No Weakness, No Numbness, No Paresthesias, No Loss of Consciousness, No Dizziness, No Headache Psych : No Anxiety/Panic, No Depression, No SI/HI/AH/VH, No Social Issues, Heme/Lymph: No Bruising, No Bleeding,No Lymphadenopathy Endocrine : No Polyuria, No Polydipsia, No Temperature Intolerance [facility] Past Medical History Medical History CKD stage 3b, GFR 30-44 ml/min COPD (chronic obstructive pulmonary disease) Morbid obesity with BMI of 40.0-44.9, adult Biventricular ICD (implantable cardioverter-defibrillator) in place Paroxysmal atrial flutter Coronary artery disease Ischemic cardiomyopathy Atrial flutter History of cardiac arrest Complete heart block Ventilator associated pneumonia STEMI (ST elevation myocardial infarction) Hypertension 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 Father No problems noted. Social History Social History Household Members: Family Household Members Other:: Housing: House Do you presently have visiting nurse or other home services: No (Stopped services a 2 weeks ago) Patient Tobacco Use Status: Former Tobacco user e-Cigarette/Vaping Use: Former Use Second Hand Smoke Exposure: No Advance Directives: Yes Advance Directives Information Provided: Yes Advance Directives on File: No Advance Directives Date on File: 09/12/24 Do you have a plan to hurt others: No Plan service: No Current occupational status: retired Cognitive needs: No Hearing needs: No Vision needs: Yes (reading glasses) Physical Exam 2 Vital Signs: Vital Signs: Last Vital Signs Temp 98.1 F 01/23/25 05:23 Pulse 84 01/23/25 05:23 Resp 19 01/23/25 05:45 BP 157/79 H 01/23/25 05:23 Pulse Ox 91 L 01/23/25 05:45 O2 Del Method Room Air 01/23/25 05:45 BMI result Body Mass Index 41.0 Const: Other: Appearance: Alert. Oriented X3. No acute distress. Eyes: Pupils equal, round and reactive to light. ENT: Pharynx normal. Neck: Normal inspection. Neck supple. No lymph nodes noted. No crepitus CVS: Normal heart rate and rhythm. Pulses normal. Normal S1 and S2 Respiratory: No respiratory distress. Breath sounds normal. No Wheezing. No rales Abdomen: Soft and nontender. No rigidity. No distention. Skin: Skin warm and dry. Normal skin color. Normal skin turgor. Extremities: No lower extremity edema. No Lacerations. No Rash Neuro: Oriented X 3. No motor deficit. No sensory deficit. Moving all extremities. No slurred speech. CN 2 through 12 grossly intact Psych: calm, cooperative, normal affect Medical Decision Making Medical Decision Making MDM Narrative: My interpretation of labs: No significant changes in patient's hematology and chemistry, creatinine elevated but at baseline. BNP 2 2 at baseline. Chest x-ray shows infiltrates versus edema on the left side. Patient denies cough or URI symptoms, unlikely to be infiltrates. Complaining patient's x-rays from previous admission, there is no change. Initially, since there are no significant changes from previous admission, discharge was considered. However, when we ambulated the patient, his oxygen saturation dropped to 83/84% with good plan. I discussed the patient with Dr. Raffi, pt being admitted Differential Diagnosis Differential Diagnoses: The differential diagnosis associated with the presentation includes (CHF, anasarca) Admission/Observation Consideration of admission/observation: Escalation of care including admission/observation considered Consult Healthcare Provider Management of the patient was discussed with: Hospitalist Lab Data [facility] Lab Attestation statement: I reviewed the patient's lab results. 01/23/25 02:50 01/23/25 02:50 Labs: Lab Results 01/23/25 Range/Units 02:50 WBC 5.7 (4.8-10.8) X10*3/uL RBC 3.91 L (4.60-5.80) X10*6/uL Hgb 11.6 L (14.0-18.0) g/dl Hct 35.2 L (42.0-52.0) % MCV 90.0 (80.0-98.0) fL MCH 29.7 (27.0-33.0) pg MCHC 33.0 (31.0-36.0) g/dl RDW 15.5 (11.0-16.0) % Plt Count 136 L (160-400) X10*3/uL MPV 9.1 L (9.4-12.4) fL Immature Gran % (Auto) 0.9 H (0.0-0.4) % Neut % (Auto) 73.4 H (45-73) % Lymph % (Auto) 12.5 L (20-40) % Mcleod % (Auto) 11.8 H (2-11) % Eos % (Auto) 0.9 (0-4) % Baso % (Auto) 0.5 (0-2) % Lymph # (Auto) 0.7 L (1.2-4.9) X10*3/uL Mcleod # (Auto) 0.7 (0.1-1.2) X10*3/uL Eos # (Auto) 0.1 (0.0-0.4) X10*3/uL Baso # (Auto) 0.0 (0.0-0.2) X10*3/uL Abs Immat Gran (auto) 0.05 H (0.00-0.03) X10*3/uL Absolute Neuts (auto) 4.2 (2.0-8.3) x10*3/uL Absolute Nucleated RBC 0.000 (0.0-0.012) X10*3/uL Nucleated RBC % (auto) 0.0 (0.0-0.2) /100WBC Sodium 142 (135-145) mmol/L Potassium 3.3 D (3.3-5.1) mmol/L Chloride 106 (96-108) mmol/L Carbon Dioxide 12 L (22-29) mmol/L Anion Gap 27 H (12-20) BUN 25 H (9-16) mg/dL Creatinine 1.93 H (0.5-1.4) mg/dL Estim Creat Clear Calc 45.1 Estimated GFR 34 Random Glucose 103 (60-115) mg/dL Calcium 8.5 (8.4-10.2) mg/dL Total Bilirubin 0.5 (0.0-1.0) mg/dL AST 27 (5-37) U/L ALT 13 (0-40) U/L Alkaline Phosphatase 125 H (39-117) U/L Troponin I High Sens 22.2 (<3.5-35.0) ng/L B-Natriuretic Peptide 202 H (<100) pg/mL Total Protein 6.2 L (6.5-8.0) g/dL Albumin 3.5 (3.5-5.0) g/dL Independent Interpretation I performed an independent interpretation of an: Plain X-Ray Radiology Impression Discussion of test interpretation with radiology: I have reviewed the radiologist's reading. Radiologist Impression: Perihilar and basilar pulmonary opacities with layering left-sided effusion. Normal size heart. No acute fracture. Left anterior chest wall pacemaker. IMPRESSION: Perihilar and basilar infiltrates or edema with layering left-sided effusion. Critical Care Time Critical Care Time Critical Care Time: Yes Total Critical Care Time: 60 Attestation: I have personally provided critical care time. Time includes review of lab data, radiology results, discussion with consultants, and monitoring for potential decompensation. Intervention performed as documented. Discharge Plan Discharge Clinical Impression: CHF (congestive heart failure) Patient Disposition: Admitted As Inpatient Print Language: Sinhala
[2025-01-23] MEDS: Bumetanide 1 MG/4 ML VIAL IVPUSH ×2 (06:38→11:57)
--- NOTE | 2025-01-23 08:11 | P.HPHOSP_ITS ---
History of Present Illness Date of Service: 01/23/25 Attending physician on admission: Jim [facility] Chief Complaint: Testicular swelling Pt is a 74-year-old male with a PMH significant for?hx of VFib cardiac arrest 03/2024, CVA in 2013, HFrEF s/p ICD (EF30-35% 09/13/2024), atrial flutter on Eliquis, CAD/OK, HTN, and CKD3 who presents to the ED with?increased SOB and swelling in scrotum and lower legs. Pt reports awoke this morning to scrotal discomfort and swelling. No pain. Denies polyuria or dysuria. Pt reports has had increased lower leg edema as well as SOB especially with exertion with the past few days. Has been compliant with all home medications including diuretics. No fever, chills, nausea, vomiting, abdominal pain. No chest pain/pressure, palpitations. Of note, despite receiving Bumex 1 mg IV in the ED, pt has not yet urinated since presenting to the hospital. Last urinated around 01:00 prior to EMS arrival. Also repots has recently had scrotal swelling with CHF exacerbations; was recently admitted to the hospital in 11/2024 with similar symptoms. During that admission swelling reduced but never completely went away. Scrotal US found found bilateral complex septated hydroceles. Recommendation was for Urology outpatient follow up, which pt has not yet done. In the ED pt was tachypneic up to 24, hypertensive up to 157/79, and desatting to 84% on RA. Labs were significant for bicarb of 12 (was previously falsely low at 8). Stable normocytic anemia of 11.6/35.2. Elevated creatinine 1.93, around baseline. No significant electrolyte abnormalities. Troponin WNL at 22.2. BNP mildly elevated at 202. CXR showed perihilar and bibasilar edema vs infiltrates with layering left-sided effusion. EKG demonstrated atrial sensed ventricular paced rhythm. Pt was treated in the ED with Bumex 1 mg IV. Pt is admitted to the hospital for treatment and further evaluation of acute hypoxic respiratory failure in the setting of acute HFrEF exacerbation. Review of Systems 2 Review of Systems: General: AOx3, no acute distress Resp: CTA bilaterally, diminished in LLL CVS: S1, S2, RRR GI: +BS, NT, obese Skin: Warm, dry Neuro: Cranial nerves II-XII grossly intact bilaterally. Motor grossly intact bilaterally : Significant swelling in scrotum, non tender. 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 Father No problems noted. Surgical History S/P ICD (internal cardiac defibrillator) procedure Social History Household Members: Family Household Members Other:: Housing: House Do you presently have visiting nurse or other home services: No (Stopped services a 2 weeks ago) Patient Tobacco Use Status: Former Tobacco user Smoked in Last 30 Days: No e-Cigarette/Vaping Use: Former Use Second Hand Smoke Exposure: No Use of substances other than those prescribed or required for medical reasons: No Advance Directives: Yes Advance Directives Information Provided: Yes Advance Directives on File: No Advance Directives Date on File: 09/12/24 Do you have a plan to hurt others: No Plan service: No Current occupational status: retired Cognitive needs: No Hearing needs: No Vision needs: Yes (reading glasses) Meds Allergies Allergy/AdvReac Type Severity Reaction Status Date / Time No Known Allergies Allergy Verified 01/23/25 02:22 [No Known Allergies*] Home Medications ?Medication ?Instructions ?Recorded ?Confirmed ?Last Taken ?Type atorvastatin 40 mg tablet 40 mg PO BEDTIME 04/19/24 01/23/25 01/22/25 History clopidogrel 75 mg tablet 75 mg PO DAILY 04/19/24 01/23/25 01/22/25 History famotidine 20 mg tablet 20 mg PO DAILY 04/19/24 01/23/25 01/22/25 History amiodarone 200 mg tablet 200 mg PO DAILY 07/01/24 01/23/25 01/22/25 History melatonin 10 mg tablet 10 mg PO BEDTIME Sleep 12/14/24 01/23/25 01/22/25 History furosemide 20 mg tablet 60 mg PO DAILY edema 01/05/25 01/23/25 01/22/25 History Physical Exam 2 Vital Signs and Narrative: Vital Signs: Last Vital Signs Temp 98.1 F 01/23/25 05:23 Pulse 73 01/23/25 07:53 Resp 24 H 01/23/25 07:53 BP 132/60 01/23/25 07:53 Pulse Ox 90 L 01/23/25 07:53 O2 Del Method Room Air 01/23/25 07:53 BMI result Body Mass Index 41.0 Results Labs 01/23/25 02:50 01/23/25 02:50 Labs: Laboratory Results - last 24 hr 01/23/25 02:50 MCV 90.0 MCH 29.7 MCHC 33.0 RDW 15.5 Plt Count 136 L MPV 9.1 L Immature Gran % (Auto) 0.9 H Neut % (Auto) 73.4 H Lymph % (Auto) 12.5 L [place] % (Auto) 11.8 H Eos % (Auto) 0.9 Baso % (Auto) 0.5 Lymph # (Auto) 0.7 L [place] # (Auto) 0.7 Eos # (Auto) 0.1 Baso # (Auto) 0.0 Abs Immat Gran (auto) 0.05 H Absolute Neuts (auto) 4.2 Absolute Nucleated RBC 0.000 Nucleated RBC % (auto) 0.0 Anion Gap 27 H Estim Creat Clear Calc 45.1 Estimated GFR 34 Random Glucose 103 Calcium 8.5 Total Bilirubin 0.5 AST 27 ALT 13 Alkaline Phosphatase 125 H B-Natriuretic Peptide 202 H Total Protein 6.2 L Albumin 3.5 Assessment and Plan (1) Acute exacerbation of CHF (congestive heart failure): Status: Resolved Plan Pt is a 74-year-old male with a PMH significant for?hx of VFib cardiac arrest 03/2024, CVA in 2013, HFrEF s/p ICD (EF30-35% 09/13/2024), atrial flutter on Eliquis, CAD/OK, HTN, and CKD3 who presents to the ED with?increased SOB and swelling in scrotum and lower legs. Pt is admitted to the hospital for treatment and further evaluation of acute hypoxic respiratory failure in the setting of acute HFrEF exacerbation. Acute hypoxic respiratory failure in the setting of HFrEF exacerbation Pt with increased scrotal swelling, LLE, SOB, [place], desatting to 84% on RA, CXR with pulmonary edema, elevated BNP Pt reports compliance with all home meds, on Lasix 60 mg daily Was given Bumex 1 mg IV in the ED, reports he has not yet urinated over 3 hours later Will increase diuretics to Bumex 2 mg IV b.i.d. Echo 09/13/2024 with LVEF 30-35% Monitor I/O, daily weights, BMP Low salt diet Cardiology consult Monitor on telemetry Scrotal swelling In the setting of CHF Scrotum with significant swelling, no erythema, nontender Similar presentation during previous admission Scrotal U/S on 12/17/2024 found bilateral complex septated hydroceles Recommendation was for follow up outpatient with Urology, which pt has not yet done Treat as above, no indication for additional imaging at this time F/U outpatient with urology Falsely low serum bicarbonate Serum bicarb 12 Pt with similar readings during prior admission. BMP was sent to [facility] with serum bicarb measured at 22 while measuring 8 here Appears that pt has substance in blood interfering with our assay Pt mentating at baseline, does not appear severely acidotic or in respiratory distress Will check VBG Paroxysmal AFib Continue Eliquis Continue clopidogrel, amiodarone CAD/HLD Continue statin, Plavix, isosorbide dinitrate HTN Continue hydralazine, carvedilol GERD Continue famotidine Obesity class 3 Encourage weight loss DNR/DNI, verified with pt and HCP/ at bedside Attending:?Dr. Lerma DVT Prophylaxis: On Eliquis Pt will require a hospitalization of at least two nights for treatment of?acute hypoxic respiratory failure in the setting of HFrEF exacerbation. Given patient's hypoxia and significant edema especially in scrotum, pt will require hospital level care for administration of IV diuretics and close monitoring of labs and cardiac function during aggressive diuresing. Quality Stroke Does the patient have a stroke diagnosis?: No VTE Prior VTE?: No VTE Risk Level:: Medical - moderate - high VTE Device Contraindication: Treatment Not Indicated VTE Drug Contraindication: N/A - Med Ordered
--- NOTE | 2025-01-23 09:33 | PHA.MEDREC ---
Addendum entered by Pia Hernandez RPh 01/23/25 10:28: [facility] REVIEWED Original Note: Pharmacy Consult ? Medication Reconciliation Pharmacy has completed the medication reconciliation. Spoke to pt and spouse to confirm meds. They had slightly outdated home med list and confirmed discrepancies with them.
[2025-01-23 10:06] LABS: Venous Blood Gas Refer to POC result
[2025-01-23 10:07] LABS: VBG Base Excess 8.8 mmol/L; VBG HCO3 33 mmol/L (22-26); VBG pCO2 47 mmHg; VBG pH 7.46 (7.32-7.43); VBG pO2 47 mmHg
--- NOTE | 2025-01-23 10:48 | PM.CNCAR ---
History of Present Illness History of Present Illness Date of Service: 01/23/25 Requesting physician: Jim Lerma Chief complaint: CHF Narrative: 74-year-old gentleman with known history of cardiomyopathy and congestive heart failure presenting with shortness of breath and lower extremity/scrotal edema. He has background history of coronary disease with cardiac arrest last year and diagnosis of cardiomyopathy with EF 30 35% with multivessel disease which was not amenable to revascularization. Subsequently had bradycardia and had CASING IN [employer] FEEDER D done. He is saying he has been experiencing lower extremity edema as well as scrotal edema over the last few weeks. He is saying he has been edematous 4 months but things worsened especially scrotal edema was worsening and that led to him coming to the emergency department. No chest discomfort. He does have shortness of breath with activities. He is taking medications regularly. He is saying he has not been taking any salt in his diet. 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 Father No problems noted. Surgical History Surgical History S/P ICD (internal cardiac defibrillator) procedure Social History Social History Household Members: Family Household Members Other:: Housing: House Do you presently have visiting nurse or other home services: No (Stopped services a 2 weeks ago) Patient Tobacco Use Status: Former Tobacco user Smoked in Last 30 Days: No e-Cigarette/Vaping Use: Former Use Second Hand Smoke Exposure: No Use of substances other than those prescribed or required for medical reasons: No Advance Directives: Yes Advance Directives Information Provided: Yes Advance Directives on File: No Advance Directives Date on File: 09/12/24 Do you have a plan to hurt others: No Plan service: No Current occupational status: retired Cognitive needs: No Hearing needs: No Vision needs: Yes (reading glasses) Meds Allergies Allergy/AdvReac Type Severity Reaction Status Date / Time No Known Allergies Allergy Verified 01/23/25 02:22 [No Known Allergies*] Active Medications: Current Medications Acetaminophen (Acetaminophen 325 Mg Tablet) 650 mg PO Q6H PRN PRN Reason: Pain, Mild 1-3,fever,headache Albuterol/Ipratropium (Albuterol/Iprat 2.5/0.5mg 3 Ml Ampul.Neb) 3 ml INHALE Q6H PRN PRN Reason: shortness of breath/wheeze Amiodarone HCl (Amiodarone Hcl 200 Mg Tablet) 200 mg PO DAILY [facility] Apixaban (Apixaban 5 Mg Tablet) 5 mg PO BID [facility] Atorvastatin Calcium (Atorvastatin Calcium 40 Mg Tablet) 40 mg PO BEDTIME [facility] Bumetanide (Bumetanide 1 Mg/4 Ml Vial) 2 mg IVPUSH BID@0900,1700 [facility]; Protocol Calcium Carbonate (Calcium Carbonate 750 Mg Tab.Chew) 750 mg PO Q4H PRN PRN Reason: Heartburn Carvedilol (Carvedilol 6.25 Mg Tablet) 6.25 mg PO BID [facility]; Protocol Clopidogrel Bisulfate (Clopidogrel Bisulfate 75 Mg Tablet) 75 mg PO DAILY [facility] Famotidine (Famotidine 20 Mg Tablet) 20 mg PO DAILY [facility] Hydralazine HCl (Hydralazine Hcl 50 Mg Tablet) 50 mg PO BID [facility]; Protocol Isosorbide Dinitrate (Isosorbide Dinitrate 5 Mg Tablet) 5 mg PO BID [facility]; Protocol Magnesium Hydroxide (Milk Of Magnesia 30 Ml Oral.Susp) 30 ml PO DAILY PRN PRN Reason: Constipation Melatonin (Melatonin 3 Mg Tablet) 6 mg PO BEDTIME PRN PRN Reason: Insomnia Ondansetron HCl (Ondansetron Hcl 4 Mg/2 Ml Vial) 4 mg IVPUSH Q8H PRN PRN Reason: Nausea and Vomiting Sodium Chloride (0.9 % Sodium Chloride Flush 3 Ml Syringe) [address] [facility] Home Medications ?Medication ?Instructions ?Recorded ?Confirmed ?Last Taken ?Type atorvastatin 40 mg tablet 40 mg PO BEDTIME 0701/23/25 01/22/25 History clopidogrel 75 mg tablet 75 mg PO DAILY 04/19/24 01/23/25 01/22/25 History famotidine 20 mg tablet 20 mg PO DAILY 04/19/24 01/23/25 01/22/25 History amiodarone 200 mg tablet 200 mg PO DAILY 07/01/24 01/23/25 01/22/25 History melatonin 10 mg tablet 10 mg PO BEDTIME Sleep 12/14/24 01/23/25 01/22/25 History furosemide 20 mg tablet 60 mg PO DAILY edema 01/05/25 01/23/25 01/22/25 History Physical Exam Vital Signs: Vital Signs: Last Vital Signs Temp 98.3 F 01/23/25 10:36 Pulse 79 01/23/25 10:36 Resp 18 01/23/25 10:36 BP 151/75 H 01/23/25 10:36 Pulse Ox 92 01/23/25 10:36 O2 Del Method Room Air 01/23/25 10:36 BMI result Body Mass Index 41.0 GENERAL APPEARANCE: in no acute distress, obese. NECK: no carotid bruit, + jugular venous distention. SKIN: no suspicious lesions, warm and dry. HEART: no murmurs, regular rate and rhythm. LUNGS: clear to auscultation bilaterally. ABDOMEN: soft, nontender. EXTREMITIES: 2+ edema. PERIPHERAL PULSES: equal. NEUROLOGIC: No gross deficits, AAO X 3 Objective Labs and Meds 01/23/25 02:50 01/23/25 02:50 Lab results: Laboratory Results - last 24 hr 01/23/25 01/23/25 02:50 10:03 WBC 5.7 RBC 3.91 L Hgb 11.6 L Hct 35.2 L MCV 90.0 MCH 29.7 MCHC 33.0 RDW 15.5 Plt Count 136 L MPV 9.1 L Immature Gran % (Auto) 0.9 H Neut % (Auto) 73.4 H Lymph % (Auto) 12.5 L [place] % (Auto) 11.8 H Eos % (Auto) 0.9 Baso % (Auto) 0.5 Lymph # (Auto) 0.7 L [place] # (Auto) 0.7 Eos # (Auto) 0.1 Baso # (Auto) 0.0 Abs Immat Gran (auto) 0.05 H Absolute Neuts (auto) 4.2 Absolute Nucleated RBC 0.000 Nucleated RBC % (auto) 0.0 VBG pH 7.46 H VBG pCO2 47 VBG pO2 47 VBG HCO3 33 H VBG O2 Saturation 72.0 VBG Base Excess 8.8 Sodium 142 Potassium 3.3 D Chloride 106 Carbon Dioxide 12 L Anion Gap 27 H BUN 25 H Creatinine 1.93 H Estim Creat Clear Calc 45.1 Estimated GFR 34 Random Glucose 103 Calcium 8.5 Total Bilirubin 0.5 AST 27 ALT 13 Alkaline Phosphatase 125 H Troponin I High Sens 22.2 B-Natriuretic Peptide 202 H Total Protein 6.2 L Albumin 3.5 Assessment and Plan (1) CHF (congestive heart failure): Status: Acute Plan [age] gentleman presenting with decompensated congestive heart failure. He has background of cardiomyopathy with EF 30 35% and multivessel disease which was medically treated due to diffuse disease process after Cardiothoracic surgery assessment. IV Bumex 2 mg b.i.d.. Continue Eliquis, Plavix and carvedilol. Continues the amiodarone 200 mg daily. Blood pressure improving with home medications. Monitor I's and O's closely. With significant scrotal edema I think SGLT2 should be avoided because there is risk for Jelly's gangrene. Thank you for allowing me to participate in the care of your patient. Please feel free to contact me if you have any questions. Procedures Date of Service Date of Service: 01/23/25
[2025-01-23] MEDS: Apixaban 5 MG TABLET PO ×2 (11:57→20:55)
[2025-01-23] MEDS: Clopidogrel Bisulfate 75 MG TABLET PO (11:57)
[2025-01-23] MEDS: Famotidine 20 MG TABLET PO (11:57)
[2025-01-23] MEDS: Amiodarone HCL 200 MG TABLET PO (11:57)
[2025-01-23] MEDS: Isosorbide Dinitrate 5 MG TABLET PO ×2 (11:58→20:54)
[2025-01-23] MEDS: Bumetanide 1 MG/4 ML VIAL 2 MG IVPUSH (16:59)
[2025-01-23] MEDS: 0.9 % Sodium Chloride Flush 3 ML SYRINGE IVFLUSH ×2 (16:59→20:55)
[2025-01-23] MEDS: Atorvastatin Calcium 40 MG TABLET PO (20:54)
[2025-01-23] MEDS: carvediloL 6.25 MG TABLET PO (20:54)
[2025-01-23] MEDS: hydrALAZINE HCl 50 MG TABLET PO (20:54)
[2025-01-24 03:42] VITALS: BP 144/67; PULSE 65; RESP 20; TEMP 36.3; O2SAT 92
[2025-01-24 07:00] LABS: Anion Gap 26 (12-20); Blood Urea Nitrogen 26 mg/dL (9-16); Calcium 8.4 mg/dL (8.4-10.2); Carbon Dioxide 15 mmol/L (22-29); Chloride 103 mmol/L (96-108); Creatinine Clr Calc Pharmacy 49.1; Estimated Glomerular Filt Rate 38; Glucose Random 99 mg/dL (60-115); Magnesium 2.3 mg/dL (1.6-2.6); Potassium 3.4 mmol/L (3.3-5.1); Sodium 141 mmol/L (135-145)
[2025-01-24 07:48] VITALS: BP 145/64; PULSE 75; RESP 20; TEMP 36.3; O2SAT 93
[2025-01-24 07:56] VITALS: BMI 39.6
[2025-01-24] MEDS: Famotidine 20 MG TABLET PO (08:44)
[2025-01-24] MEDS: Clopidogrel Bisulfate 75 MG TABLET PO (08:44)
[2025-01-24] MEDS: Isosorbide Dinitrate 5 MG TABLET PO ×2 (08:44→20:56)
[2025-01-24] MEDS: Amiodarone HCL 200 MG TABLET PO (08:44)
[2025-01-24] MEDS: Apixaban 5 MG TABLET PO ×2 (08:44→20:56)
[2025-01-24] MEDS: carvediloL 6.25 MG TABLET PO ×2 (08:44→20:56)
[2025-01-24] MEDS: Bumetanide 1 MG/4 ML VIAL 2 MG IVPUSH ×2 (08:44→16:08)
[2025-01-24] MEDS: hydrALAZINE HCl 50 MG TABLET PO ×2 (08:44→20:56)
[2025-01-24] MEDS: 0.9 % Sodium Chloride Flush 3 ML SYRINGE IVFLUSH ×3 (08:45→20:57)
--- NOTE | 2025-01-24 10:30 | MHC.CM.PN ---
IMM 01/24/25, Pt lives with his , he had services from [facility] after his last hosp. stay in November, he said those services were good. PCP is Dr. Umanzor. His is HCP, copy requested. For DME, he has a cane and wheeled walker with a seat. Transport home at DC will be via family. DCP: home self care or with [facility]. CM to follow for DC needs.
[2025-01-24 11:03] VITALS: BP 113/54; PULSE 70; RESP 18; TEMP 36.2; O2SAT 92
--- NOTE | 2025-01-24 14:22 | P.PNIM_ITS ---
Subjective Subjective Date of Service: 01/24/25 Interval History: f/u on acute on chronic heart failure interval history: he feels better, swelling is signficantly down Physical Exam 2 Vital Signs: Vital Signs: Last Vital Signs Temp 97.1 F 01/24/25 11:03 Pulse 70 01/24/25 11:03 Resp 18 01/24/25 11:03 BP 113/54 L 01/24/25 11:03 Pulse Ox 92 01/24/25 11:03 O2 Del Method Room Air 01/24/25 11:03 BMI result Body Mass Index 39.6 Const: Other: General: AO X 3, no acute distress Resp: CTA bilateral CVS: S1,S2,RRR, +2 edema GI: +BS, NT, no distention Skin: No rash Neuro: motor grossly intact Psych: appropriate affect Objective Data Active Medications Acetaminophen (Acetaminophen 325 Mg Tablet) 650 mg PO Q6H PRN PRN Reason: Pain, Mild 1-3,fever,headache Albuterol/Ipratropium (Albuterol/Iprat 2.5/0.5mg 3 Ml Ampul.Neb) 3 ml INHALE Q6H PRN PRN Reason: shortness of breath/wheeze Amiodarone HCl (Amiodarone Hcl 200 Mg Tablet) 200 mg PO DAILY [facility] Last Admin: 01/24/25 08:44 Dose: 200 mg Documented By: STEVEN Apixaban (Apixaban 5 Mg Tablet) 5 mg PO BID [facility] Last Admin: 01/24/25 08:44 Dose: 5 mg Documented By: STEVEN Atorvastatin Calcium (Atorvastatin Calcium 40 Mg Tablet) 40 mg PO BEDTIME [facility] Last Admin: 01/23/25 20:54 Dose: 40 mg Documented By: GRANT Bumetanide (Bumetanide 1 Mg/4 Ml Vial) 2 mg IVPUSH BID@0900,1700 [facility]; Protocol Last Admin: 01/24/25 08:44 Dose: 2 mg Documented By: STEVEN Calcium Carbonate (Calcium Carbonate 750 Mg Tab.Chew) 750 mg PO Q4H PRN PRN Reason: Heartburn Carvedilol (Carvedilol 6.25 Mg Tablet) 6.25 mg PO BID [facility]; Protocol Last Admin: 01/24/25 08:44 Dose: 6.25 mg Documented By: STEVEN Clopidogrel Bisulfate (Clopidogrel Bisulfate 75 Mg Tablet) 75 mg PO DAILY [facility] Last Admin: 01/24/25 08:44 Dose: 75 mg Documented By: STEVEN Famotidine (Famotidine 20 Mg Tablet) 20 mg PO DAILY [facility] Last Admin: 01/24/25 08:44 Dose: 20 mg Documented By: STEVEN Hydralazine HCl (Hydralazine Hcl 50 Mg Tablet) 50 mg PO BID [facility]; Protocol Last Admin: 01/24/25 08:44 Dose: 50 mg Documented By: STEVEN Isosorbide Dinitrate (Isosorbide Dinitrate 5 Mg Tablet) 5 mg PO BID [facility]; Protocol Last Admin: 01/24/25 08:44 Dose: 5 mg Documented By: STEVEN Magnesium Hydroxide (Milk Of Magnesia 30 Ml Oral.Susp) 30 ml PO DAILY PRN PRN Reason: Constipation Melatonin (Melatonin 3 Mg Tablet) 6 mg PO BEDTIME PRN PRN Reason: Insomnia Ondansetron HCl (Ondansetron Hcl 4 Mg/2 Ml Vial) 4 mg IVPUSH Q8H PRN PRN Reason: Nausea and Vomiting Sodium Chloride (0.9 % Sodium Chloride Flush 3 Ml Syringe) 3 ml IVFLUSH QSHIFT [facility] Last Admin: 01/24/25 08:45 Dose: 3 ml Documented By: STEVEN Labs 01/23/25 02:50 01/24/25 06:05 Labs: Laboratory Results - last 24 hr 01/24/25 06:05 Hold Purple Top SEE NOTE Anion Gap 26 H Estim Creat Clear Calc 49.1 Estimated GFR 38 Random Glucose 99 Calcium 8.4 Magnesium 2.3 Assessment and Plan (1) Acute on chronic congestive heart failure: Status: Acute Plan Pt is a 74-year-old male with a PMH significant for?hx of VFib cardiac arrest 03/2024, CVA in 2013, HFrEF s/p ICD (EF30-35% 09/13/2024), atrial flutter on Eliquis, CAD/LA, HTN, and CKD3 who presents to the ED with?increased SOB and swelling in scrotum and lower legs. Pt is admitted to the hospital for treatment and further evaluation of acute hypoxic respiratory failure in the setting of acute HFrEF exacerbation. Acute hypoxic respiratory failure in the setting of HFrEF exacerbation, improved Off O2 at this and feels better continue iV diuretics for underlying chf with socratal edema that is also better cardiology following follow i/o, weight, electrolytes Scrotal swelling In the setting of CHF Scrotum with significant swelling, no erythema, nontender Similar presentation during previous admission Scrotal U/S on 12/17/2024 found bilateral complex septated hydroceles Recommendation was for follow up outpatient with Urology, which pt has not yet done Treat as above, no indication for additional imaging at this time F/U outpatient with urology Falsely low serum bicarbonate Serum bicarb 12, now 15, ABG unremarkable Pt with similar readings during prior admission. BMP was sent to [facility] with serum bicarb measured at 22 while measuring 8 here Appears that pt has substance in blood interfering with our assay Pt mentating at baseline, does not appear severely acidotic or in respiratory distress Paroxysmal AFib Continue Eliquis Continue clopidogrel, amiodarone CAD/HLD Continue statin, Plavix, isosorbide dinitrate CKD HTN Continue hydralazine, carvedilol GERD Continue famotidine Obesity class 3 Encourage weight loss DNR/DNI, verified with pt and HCP/ at bedside DVT Prophylaxis: On Eliquis Pt will require a hospitalization of at least two nights for treatment of?acute hypoxic respiratory failure in the setting of HFrEF exacerbation. Given patient's hypoxia and significant edema especially in scrotum, pt will require hospital level care for administration of IV diuretics and close monitoring of labs and cardiac function during aggressive diuresing. Total time managing care of this patient today: 40 minutes. Quality Stroke Does the patient have a stroke diagnosis?: No VTE Prior VTE?: No VTE Risk Level:: Medical - moderate - high VTE Device Contraindication: Treatment Not Indicated VTE Drug Contraindication: N/A - Med Ordered
[2025-01-24 16:00] VITALS: BP 125/61; PULSE 69; RESP 18; TEMP 36.1; O2SAT 94
[2025-01-24 19:51] VITALS: BP 148/68; PULSE 78; RESP 18; TEMP 36.3; O2SAT 93
[2025-01-24] MEDS: Atorvastatin Calcium 40 MG TABLET PO (20:56)
[2025-01-24 23:06] VITALS: BP 126/57; PULSE 81; RESP 18; TEMP 36.1; O2SAT 90
[2025-01-25] VITALS (10 sets, daily range): BP systolic 104–142; BP diastolic 54–80; PULSE 74–80; RESP 16–18; TEMP 36.1–36.6; O2SAT 90–94; BMI 39.2
[2025-01-25 07:38] LABS: Blood Urea Nitrogen 26 mg/dL (9-16); Calcium 8.5 mg/dL (8.4-10.2); Chloride 104 mmol/L (96-108); Creatinine Clr Calc Pharmacy 46.9; Estimated Glomerular Filt Rate 37; Glucose Random 98 mg/dL (60-115); Potassium 3.7 mmol/L (3.3-5.1); Sodium 143 mmol/L (135-145)
[2025-01-25] MEDS: Bumetanide 1 MG/4 ML VIAL 2 MG IVPUSH ×2 (08:38→16:27)
[2025-01-25] MEDS: hydrALAZINE HCl 50 MG TABLET PO ×2 (08:39→20:35)
[2025-01-25] MEDS: carvediloL 6.25 MG TABLET PO ×2 (08:39→20:35)
[2025-01-25] MEDS: Apixaban 5 MG TABLET PO ×2 (08:39→20:35)
[2025-01-25] MEDS: Famotidine 20 MG TABLET PO (08:39)
[2025-01-25] MEDS: Isosorbide Dinitrate 5 MG TABLET PO ×2 (08:39→20:35)
[2025-01-25] MEDS: 0.9 % Sodium Chloride Flush 3 ML SYRINGE IVFLUSH ×3 (08:39→20:36)
[2025-01-25] MEDS: Clopidogrel Bisulfate 75 MG TABLET PO (08:39)
[2025-01-25] MEDS: Amiodarone HCL 200 MG TABLET PO (08:39)
--- NOTE | 2025-01-25 13:17 | P.PNIM_ITS ---
Subjective Subjective Date of Service: 01/25/25 Interval History: f/u on acute on chronic heart failure interval history: he feels better, swelling is signficantly down, Scr slightly up but within baseline Physical Exam 2 Vital Signs: Vital Signs: Last Vital Signs Temp 97.0 F 01/25/25 10:56 Pulse 77 01/25/25 10:56 Resp 16 01/25/25 10:56 BP 104/54 L 01/25/25 10:56 Pulse Ox 92 01/25/25 10:56 O2 Del Method Room Air 01/25/25 10:56 BMI result Body Mass Index 39.2 Const: Other: General: AO X 3, no acute distress Resp: CTA bilateral CVS: S1,S2,RRR, +2 edema GI: +BS, NT, no distention Skin: No rash Neuro: motor grossly intact Psych: appropriate affect Objective Data Active Medications Acetaminophen (Acetaminophen 325 Mg Tablet) 650 mg PO Q6H PRN PRN Reason: Pain, Mild 1-3,fever,headache Albuterol/Ipratropium (Albuterol/Iprat 2.5/0.5mg 3 Ml Ampul.Neb) 3 ml INHALE Q6H PRN PRN Reason: shortness of breath/wheeze Amiodarone HCl (Amiodarone Hcl 200 Mg Tablet) 200 mg PO DAILY [facility] Last Admin: 01/25/25 08:39 Dose: 200 mg Documented By: STEVEN Apixaban (Apixaban 5 Mg Tablet) 5 mg PO BID [facility] Last Admin: 01/25/25 08:39 Dose: 5 mg Documented By: STEVEN Atorvastatin Calcium (Atorvastatin Calcium 40 Mg Tablet) 40 mg PO BEDTIME [facility] Last Admin: 01/24/25 20:56 Dose: 40 mg Documented By: GRANT Bumetanide (Bumetanide 1 Mg/4 Ml Vial) 2 mg IVPUSH BID@0900,1700 [facility]; Protocol Last Admin: 01/25/25 08:38 Dose: 2 mg Documented By: STEVEN Calcium Carbonate (Calcium Carbonate 750 Mg Tab.Chew) 750 mg PO Q4H PRN PRN Reason: Heartburn Carvedilol (Carvedilol 6.25 Mg Tablet) 6.25 mg PO BID [facility]; Protocol Last Admin: 01/25/25 08:39 Dose: 6.25 mg Documented By: STEVEN Clopidogrel Bisulfate (Clopidogrel Bisulfate 75 Mg Tablet) 75 mg PO DAILY [facility] Last Admin: 01/25/25 08:39 Dose: 75 mg Documented By: STEVEN Famotidine (Famotidine 20 Mg Tablet) 20 mg PO DAILY [facility] Last Admin: 01/25/25 08:39 Dose: 20 mg Documented By: STEVEN Hydralazine HCl (Hydralazine Hcl 50 Mg Tablet) 50 mg PO BID [facility]; Protocol Last Admin: 01/25/25 08:39 Dose: 50 mg Documented By: STEVEN Isosorbide Dinitrate (Isosorbide Dinitrate 5 Mg Tablet) 5 mg PO BID [facility]; Protocol Last Admin: 01/25/25 08:39 Dose: 5 mg Documented By: STEVEN Magnesium Hydroxide (Milk Of Magnesia 30 Ml Oral.Susp) 30 ml PO DAILY PRN PRN Reason: Constipation Melatonin (Melatonin 3 Mg Tablet) 6 mg PO BEDTIME PRN PRN Reason: Insomnia Ondansetron HCl (Ondansetron Hcl 4 Mg/2 Ml Vial) 4 mg IVPUSH Q8H PRN PRN Reason: Nausea and Vomiting Sodium Chloride (0.9 % Sodium Chloride Flush 3 Ml Syringe) 3 ml IVFLUSH QSHIFT [facility] Last Admin: 01/25/25 08:39 Dose: 3 ml Documented By: STEVEN Labs 01/23/25 02:50 01/25/25 06:40 Labs: Laboratory Results - last 24 hr 01/25/25 06:40 Hold Purple Top SEE NOTE Anion Gap TNP Estim Creat Clear Calc 46.9 Estimated GFR 37 Random Glucose 98 Calcium 8.5 Assessment and Plan (1) Acute on chronic congestive heart failure: Status: Acute Plan Pt is a 74-year-old male with a PMH significant for?hx of VFib cardiac arrest 03/2024, CVA in 2013, HFrEF s/p ICD (EF30-35% 09/13/2024), atrial flutter on Eliquis, CAD/[place], HTN, and CKD3 who presents to the ED with?increased SOB and swelling in scrotum and lower legs. Pt is admitted to the hospital for treatment and further evaluation of acute hypoxic respiratory failure in the setting of acute HFrEF exacerbation. Acute hypoxic respiratory failure in the setting of HFrEF exacerbation, improved Off O2 at this and feels better continue iV diuretics for underlying chf with socratal edema that is also better cardiology following follow i/o, weight, electrolytes change to PO lasix today Scrotal swelling In the setting of CHF Scrotum with significant swelling, no erythema, nontender Similar presentation during previous admission Scrotal U/S on 12/17/2024 found bilateral complex septated hydroceles Recommendation was for follow up outpatient with Urology, which pt has not yet done Treat as above, no indication for additional imaging at this time F/U outpatient with urology Falsely low serum bicarbonate Serum bicarb 12, now 15, ABG unremarkable Pt with similar readings during prior admission. BMP was sent to [facility] with serum bicarb measured at 22 while measuring 8 here Appears that pt has substance in blood interfering with our assay Pt mentating at baseline, does not appear severely acidotic or in respiratory distress Paroxysmal AFib Continue Eliquis Continue clopidogrel, amiodarone CAD/HLD Continue statin, Plavix, isosorbide dinitrate CKD HTN Continue hydralazine, carvedilol GERD Continue famotidine Obesity class 3 Encourage weight loss DNR/DNI, verified with pt and HCP/ at bedside DVT Prophylaxis: On Eliquis IV diuretics for heart failure and monitoring electrolytes Total time managing care of this patient today: 40 minutes. Quality Stroke Does the patient have a stroke diagnosis?: No VTE Prior VTE?: No VTE Risk Level:: Medical - moderate - high VTE Device Contraindication: Treatment Not Indicated VTE Drug Contraindication: N/A - Med Ordered
[2025-01-25] MEDS: Atorvastatin Calcium 40 MG TABLET PO (20:35)
[2025-01-25] MEDS: Albuterol/Iprat 2.5/0.5MG 3 ML AMPUL.NEB INHALE (20:48)
[2025-01-26 03:30] VITALS: BP 110/51; PULSE 78; RESP 16; TEMP 36.2; O2SAT 89
[2025-01-26 05:31] VITALS: BMI 39.2
[2025-01-26 07:35] LABS: Blood Urea Nitrogen 28 mg/dL (9-16); Calcium 8.5 mg/dL (8.4-10.2); Chloride 103 mmol/L (96-108); Estimated Glomerular Filt Rate 34; Glucose Random 98 mg/dL (60-115); Potassium 3.5 mmol/L (3.3-5.1); Sodium 143 mmol/L (135-145)
[2025-01-26 07:57] VITALS: BP 121/60; PULSE 73; RESP 18; TEMP 36.1; O2SAT 94
[2025-01-26] MEDS: hydrALAZINE HCl 50 MG TABLET PO (09:05)
[2025-01-26] MEDS: 0.9 % Sodium Chloride Flush 3 ML SYRINGE IVFLUSH (09:05)
[2025-01-26] MEDS: Bumetanide 1 MG/4 ML VIAL 2 MG IVPUSH (09:05)
[2025-01-26] MEDS: carvediloL 6.25 MG TABLET PO (09:05)
[2025-01-26] MEDS: Apixaban 5 MG TABLET PO (09:06)
[2025-01-26] MEDS: Famotidine 20 MG TABLET PO (09:06)
[2025-01-26] MEDS: Amiodarone HCL 200 MG TABLET PO (09:06)
[2025-01-26] MEDS: Isosorbide Dinitrate 5 MG TABLET PO (09:06)
[2025-01-26] MEDS: Clopidogrel Bisulfate 75 MG TABLET PO (09:06)
--- NOTE | 2025-01-26 11:37 | PM.DS ---
DS: Providers Provider Date of Service: 01/26/25 Date of admission: 01/23/25 07:11 Date of discharge: 01/26/25 Primary care physician: Kaz Umanzor MD Consults: 01/23/25 08:47 Consult to Cardiology Routine Consulting Provider: [facility] Reason for consultation: CHF exacerbation, ?need for Lasix drip DS: Diagnosis Discharge Diagnosis (1) Acute on chronic congestive heart failure: Status: Acute DS: Summary Hospital Course Hospital Course: From admission H&P: Pt is a 74-year-old male with a PMH significant for?hx of VFib cardiac arrest 03/2024, CVA in 2013, HFrEF s/p ICD (EF30-35% 09/13/2024), atrial flutter on Eliquis, CAD/[place], HTN, and CKD3 who presents to the ED with?increased SOB and swelling in scrotum and lower legs. Pt reports awoke this morning to scrotal discomfort and swelling. No pain. Denies polyuria or dysuria. Pt reports has had increased lower leg edema as well as SOB especially with exertion with the past few days. Has been compliant with all home medications including diuretics. No fever, chills, nausea, vomiting, abdominal pain. No chest pain/pressure, palpitations. Of note, despite receiving Bumex 1 mg IV in the ED, pt has not yet urinated since presenting to the hospital. Last urinated around 01:00 prior to EMS arrival. Also repots has recently had scrotal swelling with CHF exacerbations; was recently admitted to the hospital in 11/2024 with similar symptoms. During that admission swelling reduced but never completely went away. Scrotal US found found bilateral complex septated hydroceles. Recommendation was for Urology outpatient follow up, which pt has not yet done. In the ED pt was tachypneic up to 24, hypertensive up to 157/79, and desatting to 84% on RA. Labs were significant for bicarb of 12 (was previously falsely low at 8). Stable normocytic anemia of 11.6/35.2. Elevated creatinine 1.93, around baseline. No significant electrolyte abnormalities. Troponin WNL at 22.2. BNP mildly elevated at 202. CXR showed perihilar and bibasilar edema vs infiltrates with layering left-sided effusion. EKG demonstrated atrial sensed ventricular paced rhythm. Pt was treated in the ED with Bumex 1 mg IV. Pt is admitted to the hospital for treatment and further evaluation of acute hypoxic respiratory failure in the setting of acute HFrEF exacerbation. Hospital course: Pt was diuresed with Bumex 2 mg IV b.i.d. with significant improvement symptoms, including SOB, TOSCANO, and lower extremity and scrotal swelling. Pt was diuresed a total of net -3.345 L. pt was monitored on telemetry without any significant cardiac arrhythmias. Latest vitals WNL including BP of 121/60 and pt satting at 94% on RA. Stay without electrolyte abnormalities, and creatinine stable and around baseline at time of discharge. Pt was seen by Cardiology who recommended pt avoiding SGLT2 inhibitors due to scrotal swelling and risk for Jelly's gangrene. Pt will be discharged home with diuretic change: Stop furosemide 60 mg daily and will start Bumex 2 mg b.i.d.. Pt should follow up in 1 week's time with PCP for repeat labs to monitor electrolytes and kidney function while on new diuretic, and within 1 month's time with Cardiology. Of note, pt has a hx of low serum bicarbonate during last 2 admissions likely secondary to some substance in his blood that interferes with our assay. For continued scrotal swelling pt should follow-up with Urology for evaluation of bilateral complex septated hydroceles For Paroxysmal AFib continue Eliquis, and amiodarone For CAD/HLD continue statin, Plavix, and isosorbide dinitrate For HTN continue hydralazine, carvedilol For GERD continue famotidine For obesity class 3 encourage weight loss by reduced caloric intake and increased activity as tolerated Time Attestation Discharge Coordination Time (in mins): 34 Quality: Safe Use of Opioids Does Pt have an Active Cancer Diagnosis on the Problem List?: No Quality: Stroke Does the patient have a stroke diagnosis?: No Physical Exam Vital Signs: Vital Signs: Last Vital Signs Temp 96.9 F 01/26/25 07:57 Pulse 73 01/26/25 07:57 Resp 18 01/26/25 07:57 BP 121/60 01/26/25 07:57 Pulse Ox 94 01/26/25 07:57 O2 Del Method Room Air 01/26/25 07:57 BMI result Body Mass Index 39.2 General: AOx3, no acute distress Resp: CTA bilaterally CVS: S1, S2, RRR GI: +BS, NT, no distention Skin: Warm, dry : Improved scrotal swelling. No erythema or tenderness. Neuro: Cranial nerves II-XII grossly intact bilaterally. Motor grossly intact bilaterally Extremities: Nonpitting bilateral edema Psych: Appropriate affect DS: Data Data Completed and Pending Labs on day of discharge: Laboratory Results - last 24 hr 01/26/25 06:52 Hold Purple Top SEE NOTE Sodium 143 Potassium 3.5 Chloride 103 Carbon Dioxide TNP Anion Gap TNP BUN 28 H Creatinine 1.93 H Estim Creat Clear Calc 44.0 Estimated GFR 34 Random Glucose 98 Calcium 8.5 Discharge Plan Discharge Anticipated Discharge Date/Time: 01/26/25 12:00 Patient Disposition: Home, Self-Care Discharge Diagnosis: Acute CHF exacerbation Referrals: Kaz Umanzor MD [Primary Care Provider] - 1 Week Discharge Medications: New bumetanide 2 mg tablet 2 mg PO BID Qty: 180 0RF Rx Instructions: Take one capsule twice daily to prevent fluid overload. Continued ipratropium-albuterol 0.5 mg-3 mg(2.5 mg base)/3 mL solution for nebulization 3 ml inhalation Q6H PRN (Reason: shortness of breath/wheeze) Qty: 25 0RF amiodarone 200 mg tablet 200 mg PO DAILY carvedilol 3.125 mg Tablet 6.25 mg PO BID Qty: 60 0RF Protocol: Hold for SBP/HR < HOLD for SBP < : 90 HOLD for HR < : 60 isosorbide dinitrate 5 mg Tablet 5 mg PO BID Qty: 60 0RF Protocol: Hold for SBP< HOLD for SBP < : 90 hydralazine 25 mg tablet 50 mg PO BID Qty: 120 0RF atorvastatin 40 mg Tablet 40 mg PO BEDTIME clopidogrel 75 mg Tablet 75 mg PO DAILY famotidine 20 mg Tablet 20 mg PO DAILY Eliquis 5 mg Tablet 5 mg PO BID Qty: 20 0RF melatonin 10 mg Tablet 10 mg PO BEDTIME Discontinued furosemide 20 mg tablet 60 mg PO DAILY Discharge Orders: Discharge Order (Routine); Ordered 01/26/25 Ordered By: Doc Lamb Activity on Discharge: As tolerated Stand Alone Forms: Patient Portal Discharge page Print Language: Lao Care Plan Goals: Resolution of symptoms including SOB and swelling in legs and scrotum Resumption of all home activities as tolerated Health Concerns: Worsening kidney function Return of SOB, TOSCANO, and lower leg edema Plan of Treatment: Stop furosemide 60mg daily Start budesonide 2mg twice a day Follow up with PCP in one week for repeat labs to monitor electrolytes and kidney function Follow up with cardiology in 2-4 weeks to monitor for efficacy of new diuretic Follow up with urology for continued scrotal swelling and bilateral complex septated hydroceles Assessment: See discharge summary Discharge Date/Time: 01/26/25 13:02
[2025-01-26 11:53] VITALS: BP 112/57; PULSE 81; RESP 16; TEMP 36.1; O2SAT 90
--- NOTE | 2025-01-26 12:40 | MHC.CM.PN ---
Pt has been medically cleared for DC, his will transport him home, plan is self care.
== END 2025-01-26 13:02 | disposition home or self-care (01) | DRG 291 ==
LOC: HO.ED 06:11 → HO.EDOVER 07:11 → HO.IMC 08:24
PROVIDERS: Admitting Provider Internal Medicine; Emergency Provider Emergency Medicine; PCP Internal Medicine; Visit Provider Student in an Organized Health Care Education/Training Program
DX: I13.0 Hypertensive heart and chronic kidney disease with heart failure and stage 1 through stage 4 chronic kidney disease, or unspecified chronic kidney disease (principal); I50.23 Acute on chronic systolic (congestive) heart failure; J96.01 Acute respiratory failure with hypoxia; Z68.41 Body mass index [BMI] 40.0-44.9, adult; I48.92 Unspecified atrial flutter; Z66 Do not resuscitate; E78.5 Hyperlipidemia, unspecified; E66.813 Obesity, class 3; Z71.3 Dietary counseling and surveillance; Z68.39 Body mass index [BMI] 39.0-39.9, adult; I48.0 Paroxysmal atrial fibrillation; I25.10 Atherosclerotic heart disease of native coronary artery without angina pectoris; N18.30 Chronic kidney disease, stage 3 unspecified; Z95.810 Presence of automatic (implantable) cardiac defibrillator; Z87.891 Personal history of nicotine dependence; Z79.01 Long term (current) use of anticoagulants; Z79.899 Other long term (current) drug therapy
CPT/HCPCS: 36415; 71045; 80048; 80053; 82803; 83735; 83880; 84484; 85025; 93005; 94640; 99285; J1939

== ENCOUNTER → 2025-01-23 02:44 | Outpatient (BNV) | payer MEDICARE, SELFPAY | PROVIDERS: Visit Provider General Practice | DX: R06.02 Shortness of breath (principal) | CPT/HCPCS: 71045 ==

== ENCOUNTER → 2025-01-23 07:11 | Outpatient (BNV) | payer MEDICARE, SELFPAY | PROVIDERS: Admitting Provider Internal Medicine; Emergency Provider Emergency Medicine; Visit Provider Student in an Organized Health Care Education/Training Program | DX: I50.9 Heart failure, unspecified (principal) | CPT/HCPCS: 99223; 99232; 99239 ==

== ENCOUNTER → 2025-01-23 07:11 | Outpatient (BNV) | payer MEDICARE, SELFPAY | PROVIDERS: Admitting Provider Internal Medicine; Emergency Provider Emergency Medicine; Visit Provider Internal Medicine Cardiovascular Disease | DX: I50.9 Heart failure, unspecified (principal) | CPT/HCPCS: 99223 ==

== ENCOUNTER 2025-02-07 08:25 | Outpatient (AMB) | payer MEDICARE, SELFPAY ==
--- OUTSIDE RECORDS SUMMARY | 2025-02-07 08:31 | XMS_ITS ---
Author Organization 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 Name Role Phone Jose Manuel Escalera MD Primary Care Provider Unavaila Brandon Tse Unavailable [phone] Encounters Encounter Location Date Provider Diagnosis [address] [address] 02/24/2024 Brandon Lozano Plan Of Treatment Next Appt Details Provider Name:Brandon Lozano , 02/11/2025 01:00:00 PM, [address] [place] [address], [phone], Progress Notes * Aaron VALVERDEDOB:1950 (74 yo M)Acc No.[id number]:02/24/2024 Progress Note Patient:Aaron GARCIA Provider:?Brandon Lozano DPM :1950???Age:73 Y???Sex:Male Sulaiman e:02/24/2024 Address:[address] [place], [place] [id number] Pcp:Jose Manuel Escalera MD Subjective: * Chief [...] Lozano DPM Date:?2023 Generated for Laura moser/Scarlett/eTransmitting on:?02/07/2025 08:31 AM EDT
--- OUTSIDE RECORDS SUMMARY | 2025-02-07 08:31 | XMS_ITS | Clinical Summary ---
Author Organization [facility] Address [address] [place] [address], [place] [address] Care Team Providers Care Insulation Foreman Name Role Phone Unavailable Primary Care Provider [...] patient's age to complete this topic Insurance [facility]
--- OUTSIDE RECORDS SUMMARY | 2025-02-07 08:31 | XMS_ITS | Patient Health Record ---
Author Organization [facility] Matilde jes Pancho Address [address] [place] [address] Care Team Providers Care Clinical Assistant Name Role Phone Jose Manuel Escalera MD Primary Care Provider Brandon Stokes Unavailable [phone] Allergies No Known Allergies Reason For Referral [...] W/U Status Risk Notes Problem Atherosclerosis of [place] arteries of the extremities ([id number]) Atherosclerosis of [place] artery of both lower extremities, with unspecified presence of clinical manifestation (I70.203) Active confirmed Q7(A), Q8(2B), Q9(1B,2 C) Vital Signs Blood pressure diastolic 80 mm Hg 10/15/2024 Height 5 ft 10 in in 10/15/2024 Blood pressure systolic 117 mm Hg 10/15/2024 Weight 285 lbs 10/15/2024 BMI 40.89 kg/m2 10/15/2024 Procedures Procedure Date Ordered Date Performed Result Body Sit e 61082-HTUMACC NAIL, 6 OR MORE 10/15/2024 N/A 75304-QGPQ SKIN LESIONS, OVER 4 10/15/2024 N/A Encounters Encounter Location Date Provider Diagnosis [facility] [address] [address] 10/15/2024 Brandon Lozano Atherosclerosis of [place] artery of both lower extremities, with unspecified presence of clinical manifestation I70.203 ; Tinea unguium B35.1 ; Pain in right toe(s) M79.674 and Pain in left toe(s) M79.675 [facility] [address] [address] 02/23/2024 Brandon Lozano Assessments Encounter Date Diagnosis (ICD Code) Assessment Notes Treatment Notes Treatment Clinical Notes Section Notes 10/15/2024 Atherosclerosis of [place] artery of both lower extremities, with unspecified presence of clinical manifestation (ICD-10 - I70.203) Q7(A), Q8(2B), Q9(1B,2C) 10/15/2024 Tinea unguium (ICD-10 - B35.1) 10/15/2024 Pain in right toe(s) (ICD-10 - M79.674) 10/15/2024 Pain in left toe(s) (ICD-10 - M79.675) Plan Of Treatment Pending Test Test Name Order Date 77048-CQIECVZ NAIL, 6 OR MORE 02/13/2021 68198-LTUZWMX NAIL, 6 OR MORE 05/29/2021 02883-LHDHNMR NAIL, 6 OR MORE 12/04/2021 22882-MHHJUWK NAIL, 6 OR MORE 04/05/2022 76221-TJARBTB NAIL, 6 OR MORE 11/25/2023 00651-ZISPTRL NAIL, 6 OR MORE 10/15/2024 61578-Xzslxavs Plate 11/25/2023 55813-Srkhvwyy Plate 04/05/2022 50038-Woyzeavm Plate 05/29/2021 50186-ZDJV SKIN LESIONS, OVER 4 05/29/20 57854-LVNS SKIN LESIONS, OVER 4 04/05/20 17439-BZKB SKIN LESIONS, OVER 4 12/05/19 80080-ZJYB SKIN LESIONS, OVER 4 11/25/19 24 94337-LVMM SKIN LESIONS, OVER 4 10/15/19 14515-ZGCO SKIN LESIONS, 2 TO 4 02/14/20 Next Appt Details Provider Name:Brandon Lozano , 02/11/2025 01:00:00 PM, [address] [place], [address], Insurance Providers Payer Name Payer Address Payer Phone Subscriber Number Group Number Insured Name Patient Relationship to Insured Coverage Start Date Coverage End Date [employer] [address] [place] [address] [id number] Aaron Valverde Self - patient is the insured Medical (General) History Medical History History ICD Code Back,Hip,and Knee pain Dementia High blood pressure Stroke Measles Mumps Chicken pox CAD Heart attack - March 25, 2024 Surgical History Surgery Date(Month/Year) Hospitalization History Reason Date(Month/Year) [facility] [place] 03/2022
--- OUTSIDE RECORDS SUMMARY | 2025-02-07 08:31 | XMS_ITS ---
Author Organization [facility] Address [address] [place] [address] Care Team Providers Care Physical Testing Supervisor Name Role Phone Jose Manuel Escalera MD Primary Care Provider Unavaila Brandon Tse Unavailable [phone] REASON FOR VISIT cx 02/23 Encounters Encounter Location Date Provider Diagnosis [address] [address] 02/23/2024 Brandon Lozano Plan Of Treatment Next Appt Details Provider Name:Brandon Lozano , 02/11/2025 01:00:00 PM, [address] [place], [address], Progress Notes * Aaron VALVERDEDOB:1950 (73 yo M)Acc No.[id number]:02/23/2024 Patient:?Aaron Valverde :1950???Age:73 Y???Sex:Male Address:[address] [place] [address], [address] * true * Date:? Generated for Printi shanti/Scarlett/eTransmitting on:?02/07/2025 08:31 AM EDT
--- OUTSIDE RECORDS SUMMARY | 2025-02-07 08:31 | XMS_ITS ---
Author Organization [facility] Matilde Deleon Address [address] [place] [address] Care Team Providers Care Scrap Carrier Name Role Phone Jose Manuel Escalera MD Primary Care Provider Brandon Stokes Unavailable [phone] Allergies No Known Allergies REASON FOR VISIT [...] Ordered Date Performed Result Body Sit e 63066-VGVCJVI NAIL, 6 OR MORE 10/15/2024 N/A 88769-BRPN SKIN LESIONS, OVER 4 10/15/2024 N/A Encounters Encounter Location Date Provider Diagnosis [facility] [place] [address] [place] [address] 10/15/2024 Brandon Marta Atherosclerosis of [place] artery of both lower extremities, with unspecified presence of clinical manifestation I70.203 ; Tinea unguium B35.1 ; Pain in right toe(s) M79.674 and Pain in left toe(s) M79.675 Assessments Encounter Date Diagnosis (ICD Code) Assessment Notes Treatment Notes Treatment Clinical Notes Section Notes 10/15/2024 Atherosclerosis of [place] artery of both lower extremities, with unspecified presence of clinical manifestation (ICD-10 - I70.203) Q7(A), Q8(2B), Q9(1B,2C) 10/15/2024 Tinea unguium (ICD-10 - B35.1) 10/15/2024 Pain in right toe(s) (ICD-10 - M79.674) 10/15/2024 Pain in left toe(s) (ICD-10 - M79.675) Plan Of Treatment Pending Test Test Name Order Date 26260-XESGRBN NAIL, 6 OR MORE 10/15/2024 69290-DCXK SKIN LESIONS, OVER 4 10/15/19 25 Next Appt Details Follow Up: prn, Reason: Provider Name:Brandon Shey AlonsoMarta , 02/11/2025 01:00:00 PM, [address] [place] [address], [phone], Procedure Notes * Category Sub-Category Detail Notes [...] use of a nail nipper and/or dremel-type roll grinder, to a more viable healthy nail plate [...] to maintain effectiveness in symptomatic relief - 20634 Keratoma Treatment Parring or Cutting o f [...] instrumentation by the physician of record - 04906, Q88 Progress Notes * CLAUDIOAaronDOB:1950 (74 yo M)Acc No.[id number]:10/15/2024 Progress Note Patient:?Aaron VALVERDE Provider:?Brandon Lozano DPM :1950???Age:74 Y???Sex:Male Sulaiman e:10/15/2024 Address:[address] [place], [place] [id number] Pcp:Jose Manuel Escalera MD Subjective: * Chief [...] t Surgical History * Hospitalization/Major Diagno stic Procedure:?[facility] 03/2022 * Family History:?Mother: dece ased.?Father: [...] Heel(s), B/L.? Assessment: * Assessment: 1.?Atherosclerosis of [place] artery of both lower extremities, with unspecified presence of clinical manifestation - I70.203 (Primary)???Notes :Q7(A), Q8(2B), Q9(1B,2C)???2.?Tinea unguium - B35.1???3.?Pain in right toe(s) - M79.674???4.?Pain in left toe(s) - M79.675??? Plan: * Treatment: 2.?Tinea unguium?Procedure: 79844-LFKSYWB NAIL, 6 OR MORE * Procedures:?Debride Nail [...] use of a nail nipper and/or dremel-type roll grinder, to a more viable healthy nail plate [...] to maintain effectiveness in symptomatic relief - 35499.?Keratoma Treatment:?Parring or Cutting of Benign Hyperkeratotic Lesion(s)?(-57) [...] instrumentation by the physician of record - 35801, Q88.? * Procedure Codes:?59677 DEBRI DE NAIL, 6 OR MORE, Modifiers: XS 60760 TRIM SKIN LESIONS, OVER 4, Modifiers: XS , Q8 * Follow Up:?prn * Images: * Sign off status: Completed true * Provider:?Brandon Lozano DPM Date:?2024 Generated for Laura moser/Scarlett/eTransmitting on:?02/07/2025 08:31 AM EDT History and Physical Notes * HPI [...]
[2025-02-07 08:39] VITALS: BP 120/70; PULSE 81; TEMP 36.4; O2SAT 90; BMI 39.7
--- NOTE | 2025-02-07 08:39 | A.OFFPC_ITS ---
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 Required: No Accompanied by: Spouse Allergies No Known Allergies [No Known Allergies*] Allergy (Verified 02/07/25 08:39) Tobacco use date assessed: 02/07/25 Fall risk assessment: No Falls in past year Last assessed Fall Risk: 02/07/25 Dental Screening Dental Screen Date: 02/07/25 Did you have a dental visit in the last 12 months?: No Did you have a dental problem in the last 6 months where you did not have access to dental care?: No HPI Hosp C - see comments HPI Details Pt is a 74-year-old male with a PMH significant for?hx of VFib cardiac arrest 03/2024, CVA in 2013, HFrEF s/p ICD (EF30-35% 09/13/2024), atrial flutter on Eliquis, CAD/MO, HTN, and CKD3 who presents to the ED with?increased SOB and swelling in scrotum and lower legs. Pt was seen by Cardiology who recommended pt avoiding SGLT2 inhibitors due to scrotal swelling and risk for Jelly's gangrene. [facility] Medical History CKD stage 3b, GFR 30-44 ml/min COPD (chronic obstructive pulmonary disease) Morbid obesity with BMI of 40.0-44.9, adult Biventricular ICD (implantable cardioverter-defibrillator) in place Paroxysmal atrial flutter Coronary artery disease Ischemic cardiomyopathy Atrial flutter History of cardiac arrest Complete heart block Ventilator associated pneumonia STEMI (ST elevation myocardial infarction) Hypertension Hx of longterm use of blood thinners Surgical History S/P ICD (internal cardiac defibrillator) procedure Family History Mother No problems noted. Father No problems noted. Social History Household Members: Spouse Household Members Other:: Housing: Apartment Do you presently have visiting nurse or other home services: No Patient Tobacco Use Status: Former Tobacco user Tobacco use type: Cigarette e-Cigarette/Vaping Use: Never Used Second Hand Smoke Exposure: No Advance Directives Date on File: 09/12/24 service: Yes Current occupational status: retired Cognitive needs: No Hearing needs: No Vision needs: Yes (reading glasses) Questionnaire PHQ-9 Over the last 2 weeks, how often have you been bothered by any of the following problems? 1. Little interest or pleasure in doing things: not at all 2. Feeling down, depressed, or hopeless: not at all 3. Trouble falling or staying asleep, or sleeping too much: not at all 4. Feeling tired or having little energy: not at all 5. Poor appetite or overeating: not at all 6. Feeling bad about yourself - or that you are a failure or have let yourself or your family down: not at all 7. Trouble concentrating on things, such as reading the newspaper or watching television: not at all 8. Moving or speaking so slowly that other people could have noticed. Or the opposite - being so fidgety or restless that you have been moving around a lot more than usual: not at all 9. Thoughts that you would be better off or of hurting yourself in some way: not at all Total score: 0 Depression Screening Interpretation: Negative Depression Screening Done: Yes Source: Developed by Drs. Stevenson Springer, Micaela Carlin, Delvin Puente and colleagues, with an educational farooq from [employer]. Thrive Questionnaire Date Thrive assessed: 02/07/25 I am a: Patient Within the past 12 months, did the food you bought not last and you didn't have the money to get more?: Never true Within the past 12 months, did you worry whether your food would run out before you got money to buy more?: Never true Do you have trouble paying for medicines?: No Do you have trouble getting transportation to medical appointments?: No Do you have trouble paying your heating and electricity bill?: No Do you have trouble taking care of your child, family member or friend?: No Do you have trouble with day-to-day activities such as bathing, preparing meals, shopping, managing finances, etc.?: No Are you currently unemployed and looking for a job?: No Are you interested in more education?: No Currently or been in a relationship where the following occur: No concerns reported THRIVE Score: 0 AUDIT C Alcohol Use Questionnaire (AUDIT-C) 1. How often do you have a drink containing alcohol?: Never 3. How often do you have six or more drinks on one occasion?: Never Total Score: 0 HUE-7 AMB Questionnaire HUE-7 Date HUE - 7 assessed: 02/07/25 Feeling nervous, anxious, or on edge: 0 = Not at all Not being able to stop or control worryin = Not at all Worrying too much about different things: 0 = Not at all Trouble relaxin = Not at all Being so restless that it is hard to sit still: 0 = Not at all Becoming easily annoyed or irritable: 0 = Not at all Feeling afraid as if something awful might happen: 0 = Not at all Total HUE-7 score (0-4 normal; 5-9 mild; 10-14 moderate; 15-21 severe): 0 Source: Developed by Drs. Stevenson Springer, Micaela Carlin, Delvin Puente and colleagues, with an educational farooq from [employer]. Physical exam (Primary Care) Vital Signs: Last Vital Signs Temp 97.6 F 02/07/25 08:39 Pulse 81 02/07/25 08:39 BP 120/70 02/07/25 08:39 Pulse Ox 90 L 02/07/25 08:39 Oxygen Delivery Method Room Air 02/07/25 08:39 Care Plan Goal for BP management: BP is in range BMI result Body Mass Index 39.7 BMI Assessment/Plan discussion: High BMI High, discussed plan: lifestyle, weight reduction and dietary Tobacco/Smoking Status: Tobacco use Status Tobacco use date assessed 12/30/24 02/07/25 08:41 Patient Tobacco Use Status Former Tobacco user 02/07/25 08:41 Tobacco use type Cigarette 02/07/25 08:41 e-Cigarette/Vaping Use Never Used 02/07/25 08:41 PHQ-9: PHQ-9 Score PHQ-9: Total score 0 02/07/25 08:41 Depression Screening Interpretation: Negative Thrive Assessment: Date of Thrive Assessment Date Thrive assessed 02/07/25 02/07/25 08:41 Currently or been in a relationship where the following occur: No concerns reported Advance Care Planning discussion: Exists, not on file Date of discussion: 02/07/25 Who was present: , patient Forms completed: Health Care Proxy and MOLST Actual minutes spent: 5 Coding Level of Care Code New Pt Level 4 (96768) Complex EM visit Add On G2211 Diagnoses Hypertension I10 Acute on chronic HFrEF (heart failure with reduced ejection fraction) I50.23 Additional Codes Vital Signs *Quality* - Advance Care Planning discussion: Exists, not on file ([id number]) Assessment & Plan Assessment & Plan (1) Hypertension: Code(s): I10 - Essential (primary) hypertension Category: Medical (2) Acute on chronic HFrEF (heart failure with reduced ejection fraction): Code(s): I50.23 - Acute on chronic systolic (congestive) heart failure Category: Medical Plan: Furosemide changed to Bumex.. SGLT-2 meds have been stopped. Advised to check weights daily Plan History of Present Illness The patient is a 74-year-old male presenting with concerns regarding congestive heart failure management and follow-up care subsequent to a recent hospital admission. The hospitalization was necessitated by worsening heart failure symptoms, accompanied by significant edema in the scrotum and lower legs. During the hospitalization, adjustments were made to his diuretic therapy, switching from Furosemide to Bumetanide (Bumex), a stronger diuretic. The patient has been diligently monitoring his weight at home and reports stable measurements, with no recent weight gain. A previous prescription for the SGLT2 inhibitor, Empagliflozin (Jardiance), was discontinued post-hospitalization. Moreover, his reports the observation of a low oxygen saturation level at 90%, prompting concern, although no immediate change in respiratory management was pursued. Social History - Lives with his ; they also have their daughter and son-in-law living next door in a duplex. - No longer drives, expressing concerns about reflexes that are not adequate for driving. - The patient's is his healthcare proxy and manages his day-to-day care. Review of Systems - Respiratory: Reports low oxygen saturation levels. Denies nocturnal coughing or chest pain. - Cardiovascular: Reports edema in the scrotum and lower extremities. - General: Denies recent weight gain. Reports using three pillows to sleep comfortably. Physical Exam General: Cooperative and healthy appearing Nutritional Appearance: Well nourished Orientation/consciousness: Patient oriented x3 Limitations: No limitations Head: Normal to inspection General: Appearance normal, both eyes and all related structures Neck: Normal visual inspection Chest: Normal palpation of entire chest wall Respiratory: Oxygen level is low at 90. Breathing is alright currently, but requires three pillows to sleep propped up. ormal respiratory effort Neurology: Patient oriented x3, reflexes not good enough for driving. Results - Labs and kidney function tests needed and were being planned but not included in the conversation. Plan 1. Congestive Heart Failure - Prescribe Bumetanide with daily weight checks and report significant changes. - Monitor and manage salt intake; complete necessary blood work for electrolytes and kidney function. 2. Scrotal Edema - Monitor swelling and continue following heart failure management plans. 3. Lower Extremity Edema - Continue current management with attention to diuretic therapy and leg elevation. Discussion Notes During the visit, I discussed the management of congestive heart failure, emphasizing the medication changes made in the hospital, specifically the switch from furosemide to Bumetanide. I highlighted the importance of daily weight monitoring and minimizing salt intake to prevent fluid overload. The patient was informed of the necessity to undergo blood work to evaluate electrolytes and kidney function after discharge. The significance of oxygen level monitoring was addressed, reassuring that no further change to nebulizer medication was needed. Follow-up arrangements were confirmed for three months, with instructions to proceed with lab tests promptly. Patient Instructions - Monitor your weight every day and call if you gain more than 5 pounds. - Limit salt in your diet to help manage heart problems. - Get your blood work done on the ground floor today. - Keep using the same nebulizer medicine; stay aware of your oxygen levels. - Watch for changes in swelling, especially in your scrotum and legs. - Follow-up with me in three months for further assessment. Orders: Orders Basic Metabolic Panel Today I10 - Essential (primary) hypertension Complete Blood Count no Diff Today I10 - Essential (primary) hypertension Liver Panel Today I10 - Essential (primary) hypertension Lipid Panel Today I10 - Essential (primary) hypertension Thyroid Stimulating Hormone Today I10 - Essential (primary) hypertension UA and rflx microscopic Today I10 - Essential (primary) hypertension
== END 2025-02-07 09:25 | disposition home or self-care (01) ==
LOC: HO.HMCHD 08:25
PROVIDERS: PCP Internal Medicine; Visit Provider Internal Medicine
DX: I10 Essential (primary) hypertension (principal); I50.23 Acute on chronic systolic (congestive) heart failure; Z00.00 Encounter for general adult medical examination without abnormal findings

== ENCOUNTER → 2025-02-07 08:25 | Outpatient (BNVA) | payer MEDICARE, SELFPAY | PROVIDERS: PCP Internal Medicine; Visit Provider Internal Medicine ==

== ENCOUNTER 2025-02-07 09:06 | Outpatient (REF) | payer MEDICARE, SELFPAY ==
--- OUTSIDE RECORDS SUMMARY | 2025-02-07 09:21 | XMS_ITS | Clinical Summary ---
Author Organization [facility] Facility Address [address] [place] [address], [place] [address] Care Team Providers Care Shop Router Name Role Phone Unavailable Primary Care Provider [...] patient's age to complete this topic Insurance [facility]
[2025-02-07 10:49] LABS: Hematocrit 40.7 % (42.0-52.0); Hemoglobin 12.8 g/dl (14.0-18.0); Mean Corpuscular HGB Conc 31.4 g/dl (31.0-36.0); Mean Corpuscular Hemoglobin 29.1 pg (27.0-33.0); Mean Corpuscular Volume 92.5 fL (80.0-98.0); Platelet Count 141 X10*3/uL (160-400); Red Cell Distribution Width 15.9 % (11.0-16.0); White Blood Count 5.5 X10*3/uL (4.8-10.8)
[2025-02-07 11:32] LABS: Alanine Aminotransferase 12 U/L (0-40); Albumin Level 3.5 g/dL (3.5-5.0); Alkaline Phosphatase 120 U/L (39-117); Aspartate Amino Transferase 27 U/L (5-37); Bilirubin Direct 0.3 mg/dL (0.0-0.5); Bilirubin Total 0.6 mg/dL (0.0-1.0); Blood Urea Nitrogen 28 mg/dL (9-16); Calcium 8.3 mg/dL (8.4-10.2); Chloride 105 mmol/L (96-108); Cholesterol 116 mg/dL (<200); Estimated Glomerular Filt Rate 34; Glucose Random 122 mg/dL (60-115); HDL Cholesterol 50 mg/dL (>40); LDL Cholesterol Calculated 55 mg/dL (<100); Potassium 3.7 mmol/L (3.3-5.1); Sodium 142 mmol/L (135-145); Thyroid Stimulating Hormone 1.95 uIU/mL (0.32-4.0); Total Protein 6.4 g/dL (6.5-8.0); Triglycerides 55 mg/dL (<150)
== END 2025-02-07 09:07 | disposition home or self-care (01) ==
LOC: HO.10HDL 09:06
PROVIDERS: Visit Provider Internal Medicine
DX: I11.0 Hypertensive heart disease with heart failure (principal); I50.23 Acute on chronic systolic (congestive) heart failure
CPT/HCPCS: 36415; 80048; 80061; 80076; 84443; 85027; 96127; 99202

== ENCOUNTER 2025-02-22 13:24 | Outpatient (AMB) | payer MEDICARE, SELFPAY ==
--- NOTE | 2025-02-22 13:58 | A.OFFVIS_ITS ---
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 He is a patient of Dr. Quigley. He is seen for the following urologic conditions - bilateral hydroceles Bilateral hydroceles - The patient is a 74-year-old male presenting with scrotal swelling. - Bilateral complex hydroceles identified via ultrasound. - History includes COPD, CHF, and pacemaker insertion post-myocardial infarction. - Prior CHF exacerbation led to generalized edema; currently improved except for residual scrotal and extremity edema. - On anticoagulation with Eliquis due to cardiac history; edema reduced by diuretics previously. 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 Father No problems noted. Social History Household Members: Spouse Household Members Other:: Housing: Apartment Do you presently have visiting nurse or other home services: No Patient Tobacco Use Status: Former Tobacco user Tobacco use type: Cigarette e-Cigarette/Vaping Use: Never Used Second Hand Smoke Exposure: No Advance Directives Date on File: 09/12/24 service: Yes Current occupational status: retired Cognitive needs: No Hearing needs: No Vision needs: Yes (reading glasses) Review of Systems Const Denies chills and Denies fever(s) Card Reports no additional complaints and Denies syncope Resp Denies cough GI Denies abdominal pain and Denies heartburn Reports as per HPI and Denies change in libido Neuro Denies syncope Psych Denies change in libido Endo Denies change in libido Physical Exam Const General: cooperative, healthy appearing, comfortable and no acute distress Orientation/consciousness: patient oriented x3 HEENT Face and sinus: Yes normal facial exam Mouth: moist mucous membranes Neck Neck: Yes normal visual inspection, Yes full ROM and Yes trachea midline Chest Chest palpation & inspection: normal inspection of the chest Resp Effort & Inspection: normal respiratory effort, able to speak in complete sentences and no respiratory distress GI Inspection: Yes normal to inspection Back/Spine/Pelvis Cervical Spine: normal cervical lordosis Thoracic/Lumbar Spine: thoracic and lumbar spine normal to inspection Skin General skin exam: no rashes or lesions noted Neuro General: patient oriented x3, gait normal, tone normal and moves all extremities Extrem General: Yes normal to inspection and Yes capillary refill normal Results AMB Urinalysis, Automated UA Leukoctes 0 Christina/uL Last Edit by AUGIE Omer on 02/22/25 14:18 UA Nitrite Negative Last Edit by AUGIE Omer on 02/22/25 14:18 UA Urobilinogen 3.5 mg/dL Last Edit by AUGIE Omer on 02/22/25 14:1 8 UA Protein 0 mg/dL Last Edit by AUGIE Omer on 02/22/25 14:18 UA pH 6.0 Last Edit by AUGIE Omer on 02/22/25 14:18 UA Blood 0 Lee/uL Last Edit by AUGIE Omer on 02/22/25 14:18 UA Specific [place] 1.010 Last Edit by AUGIE Omer on 02/22/25 14: 18 UA Ketone Negative Last Edit by AUGIE Omer on 02/22/25 14:18 UA Bilirubin 0 mg/dL Last Edit by AUGIE Omer on 02/22/25 14:18 UA Glucose 0 mg/dL Last Edit by AUGIE Omer on 02/22/25 14:18 Results Reviewed Results Reviewed: Laboratory Last Values Urine pH (Auto) 6.0 02/22/25 14:18 Specific [place] (Auto) 1.010 02/22/25 14:18 Urine Protein (Auto) 0 mg/dL 02/22/25 14:18 Glucose (UA)(Auto) 0 mg/dL 02/22/25 14:18 Urine Ketones (Auto) Negative 02/22/25 14:18 Urine Blood (Auto) 0 Lee/uL 02/22/25 14:18 Urine Nitrite (Auto) Negative 02/22/25 14:18 Urine Bilirubin (Auto) 0 mg/dL 02/22/25 14:18 Urine Urobilinogen (Auto) 3.5 mg/dL 02/22/25 14:18 Leukocyte Esterase (Auto) 0 Christina/uL 02/22/25 14:18 Assessment & Plan Assessment & Plan (1) Hydrocele in adult: Code(s): N43.3 - Hydrocele, unspecified Category: Medical Plan Plan Patient informed verbally consented to the use of an ambient scribe 1. Bilateral Complex Septated Hydroceles Surgical drainage and correction discussed. Consideration of local anesthesia and sedation to avert need for general anesthesia. 2. Congestive Heart Failure Manage CHF-related fluid retention with careful monitoring post-op to ensure no exacerbation occurs. 3. Anticoagulation Therapy Hold Eliquis perioperatively with field artillery crewmember consent, balancing thromboembolic risk. Discussion Notes I discussed that the bilateral hydroceles could be surgically addressed with a procedure involving drainage and fixation to prevent recurrence. The risks of continuing anticoagulant therapy during the procedure versus the potential for increased hematoma were considered. Surgical benefits focused on improved urinary function and reduced swelling discomfort. The timing of Eliquis cessation was positioned around one week preoperatively with field artillery crewmember approval, evaluating bleeding versus cardiovascular risk. I reinforced the importance of a field artillery crewmember clearance for anticoagulation management and discussed follow-up protocols for post-surgery outcomes. Consent was sought for all discussed procedures and likely post-procedure support on risks, including potential bleed complications. Patient Instructions - Contact the field artillery crewmember to discuss stopping Eliquis before the planned procedure. - After ensuring cardiology clearance, proceed to schedule the surgery. - Monitor any new or worsening swelling and fluid retention. - Report any unusual symptoms or discomfort to the healthcare team immediately. - Follow up with the urologist after obtaining field artillery crewmember approval. Orders: Orders AMB Urinalysis Automated 02/22/25 Z13.9 - Encounter for screening, unspecified Patient Instructions: This note is constructed using voice recognition software. While every effort has been made to ensure accuracy senior procurement specialist errors may have been included. Imaging studies, laboratory and physical exam results were discussed and reviewed in detail. No major barriers to patient understanding were identified. An opportunity to ask questions regarding the treatment plan was provided. All questions were answered. The patient expressed understanding and agreement with the above treatment plan. The patient is aware they should contact our office by phone for worsening of their current condition or the appearance of new urologic symptoms. Compliance is encouraged with any medications and followup testing that is ordered. It is a privilege to participate in the urologic care of your patient. If you have any questions or concerns regarding treatment for the above conditions, or other urologic issues, please do not hesitate to contact me. The office telephone contact is [phone]. Sincerely, Dr Kojo Girard MD, [facility] - Urology Compassionate Specialist Care for the Genitourinary System Coding Level of Care Code New Pt Level 4 (21976) Diagnoses Hydrocele in adult N43.3
--- OUTSIDE RECORDS SUMMARY | 2025-02-22 15:00 | XMS_ITS | Clinical Summary ---
Author Organization [facility] Facility Address [address] [place] [address], [place] [address] Care Team Providers Care Sheetmetal Worker Name Role Phone Unavailable Primary Care Provider [...] patient's age to complete this topic Insurance [facility]
== END 2025-02-22 15:10 | disposition home or self-care (01) ==
LOC: HO.HUSH 13:25
PROVIDERS: PCP Internal Medicine; Visit Provider Urology
DX: N43.3 Hydrocele, unspecified (principal)
CPT/HCPCS: 99204

== ENCOUNTER → 2025-02-22 13:24 | Outpatient (BNVA) | payer MEDICARE, SELFPAY | PROVIDERS: PCP Internal Medicine; Visit Provider Urology | DX: N43.3 Hydrocele, unspecified (principal) | CPT/HCPCS: 81003; 99202 ==

== ENCOUNTER 2025-03-21 09:43 | Outpatient (AMB) | payer MEDICARE, SELFPAY ==
[2025-03-21 10:38] VITALS: BP 132/60; PULSE 71; BMI 40.9
--- NOTE | 2025-03-21 10:38 | MHC.OFFVIS ---
Vital Signs 03/21/25 10:38 Height 5 ft 9.5 in Weight 280 lb 13.903 oz BMI 40.9 BP 132/60 Blood Pressure Location Rt brachial Position Sitting Pulse 71 Pulse Source Monitor Intake Visit Reasons: clearance for Bilateral hydrocelectomy Kindergarten Teacher Required: No Audio Production Engineer: Audio Production Engineer Present Allergies No Known Allergies (No Known Allergies*) Allergy (Verified 03/21/25 10:42) Medication List - Last Reconciled 03/21/25 by AUSTIN WhitakerC amiodarone 200 mg PO DAILY apixaban (Eliquis) 5 mg PO BID atorvastatin 40 mg PO BEDTIME bumetanide 2 mg PO BID carvedilol 6.25 mg See Protocol PO BID clopidogrel 75 mg PO DAILY famotidine 20 mg PO DAILY hydralazine 50 mg (2 x 25 mg) PO BID ipratropium-albuterol 0.5 mg-3 mg(2.5 mg base)/3 mL 3 mL inhalation Q6H PRN isosorbide dinitrate 5 mg See Protocol PO BID melatonin 5 mg PO BEDTIME HPI HPI clearance for Bilateral hydrocelectomy: Details: Aaron is a 74-year-old male with past medical history of hypertension, hyperlipidemia, chronic kidney disease, CVA, VFib arrest 03/2024, status post ICD placement, CAD/MA, ischemic cardiomyopathy, heart failure with preserved EF who was admitted to [facility] early January 2025 with increased shortness of breath and edema. He was diuresed and his Lasix was changed to Bumex. Today he reports that he has been doing well since his last discharge on 01/26/2025. He is doing updraft treatments 2 times daily at home. He reports his breathing is comfortable. He sleeps with 2 pillows which is his norm. His leg edema is down and he is currently pleased with how they look. No chest discomfort at rest or with activity. No heart palpitations, lightheadedness, presyncope syncope. He admits to being mostly sedentary. He is compliant with meds. is present. He has a hydrocele and needs to have surgery on 04/25/2025 and is requesting cardiac clearance. 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 Father No problems noted. Social History Household Members: Spouse Household Members Other:: Housing: Apartment Do you presently have visiting nurse or other home services: No Patient Tobacco Use Status: Former Tobacco user Tobacco use type: Cigarette e-Cigarette/Vaping Use: Never Used Second Hand Smoke Exposure: No Advance Directives Date on File: 09/12/24 service: Yes Current occupational status: retired Cognitive needs: No Hearing needs: No Vision needs: Yes (reading glasses) Review of Systems Const All systems reviewed & are unremarkable except as noted in HPI and below ENT Denies dizziness Card Denies chest pain, Denies chest pain at rest, Denies chest pain with activity, Denies rapid heart rate, Denies pedal edema, Denies edema, Denies leg edema, Denies lightheadedness, Denies palpitations, Denies dyspnea, Reports dyspnea on exertion and Denies orthopnea Resp Denies cough, Denies dyspnea and Reports dyspnea on exertion GI Denies hematochezia and Denies change in stool character Musc Details: ambulates with cane Reports abnormal gait, Denies limited range of motion, Denies muscle cramps, Denies muscle weakness, Denies numbness, Denies radiating pain into limb, Denies stiffness and Denies tingling Neuro Reports abnormal gait, Denies dizziness, Denies numbness and Denies tingling Endo Denies palpitations Physical Exam Vital Signs: Last Vital Signs Pulse 71 03/21/25 10:38 BP 132/60 03/21/25 10:38 BMI result Body Mass Index 40.9 Const Other: morbidly obese General: cooperative, healthy appearing, comfortable and no acute distress Orientation/consciousness: patient oriented x3 Neck Neck: Yes normal visual inspection and Yes no JVD Resp Other: lungs sounds diminished Effort & Inspection: normal respiratory effort Auscultation: no rales, no rhonchi and no wheezes Cardio Rate: regular rate Rhythm: regular rhythm Heart sounds: S1 normal heart sound present, S2 normal heart sound present, no gallops, no murmurs and no rubs Neuro General: patient oriented x3 Extrem General: Yes normal to inspection, No no pedal edema and No calf tenderness Psych Appearance: grossly normal Mental Status: mental status grossly normal Speech and movement: Normal speech and movement present Office Procedures EKG Details: Today, read by me, Atrial sensed, ventricular paced, rate 71, Qtc 482ms [id number], Complete Assessment & Plan Assessment & Plan (1) Coronary artery disease: Code(s): I25.10 - Atherosclerotic heart disease of [place] coronary artery without angina pectoris Category: Medical Plan: VFib arrest March 2024 with successful resuscitation. He was found to have anterior STEMI. Cardiac catheterization showed mid SQL SSRS DEVELOPER of the LAD with minimal collaterals, left circumflex 70% proximal stenosis, RCA proximal SQL SSRS DEVELOPER. Notes indicate he could not be revascularized surgically. Echocardiogram initially showed EF 30-35% with wall motion abnormalities. He underwent Bi V ICD was placement. He had been following with [facility] cardiology but change to our office since it is closer to his home. Last echo in our system done 09/13/2024 shows EF 30-35%, mid anterior lateral hypokinetic, mid anterior septal, mid inferior lateral akinetic, left atrium severely dilated, mild pulmonary hypertension. He has had heart failure admissions, with last discharge 01/26/2025. His Lasix was changed to Bumex 2 mg b.i.d.. Labs from 02/07/2025 show creatinine 1.96 which was similar to prior. He was taken off Jardiance due to having scrotal edema and concern increased risk of Jelly gangrene. He is currently on hydralazine 50 mg b.i.d., Isordil 5 mg b.i.d., and carvedilol 6.25 mg b.i.d. for neurohormonal modulation. He is not on Marlo or Arb due to chronic kidney disease. He is not on aspirin as he is on Eliquis. He is on Plavix. Continue current management. Cardiology follow-up 3 months, sooner if needed -to evaluate for heart failure symptoms (2) Ischemic cardiomyopathy: Code(s): I25.5 - Ischemic cardiomyopathy Category: Medical Plan: History of ischemic cardiomyopathy since his recent MA. most recent echo as above. He does have a Bi V ICD in place and on last check V paces greater than 99%. On exam he does have some mild ankle edema otherwise does not appear fluid overloaded. Continue low-salt diet, less than 2 g daily. Continue home weight monitoring and call if weight gain over 3 lb in a day or 5 lb in a week. Continue Lasix 60 mg daily. He does have known chronic kidney disease and follows with Nephrology. Signs and symptoms of heart failure reviewed with him. (3) History of cardiac arrest: Comment: March 2024 Code(s): Z86.74 - Personal history of sudden cardiac arrest Category: Medical Plan: As above (4) Biventricular ICD (implantable cardioverter-defibrillator) in place: Code(s): Z95.810 - Presence of automatic (implantable) cardiac defibrillator Category: Medical Plan: [place] [facility] Bi V ICD in place. Functioning normally on interrogation last visit. Battery 7 years. He has remote monitoring in use. Will plan for office interrogation next visit. (5) Hypertension: Code(s): I10 - Essential (primary) hypertension Category: Medical Plan: Blood pressure goal less than 130/80. Blood pressure normal at this time. Meds reviewed and no changes. (6) Paroxysmal atrial flutter: Code(s): I48.92 - Unspecified atrial flutter Category: Medical Plan: Notes indicate history of paroxysmal atrial flutter. EKG today is showing atrial sensed, ventricular paced rhythm. He has not felt any heart palpitations. Will continue to follow remotely. Continue Eliquis for anticoagulation. Continue carvedilol for heart rate control. (7) Hospital discharge follow-up: Code(s): Z09 - Encounter for follow-up examination after completed treatment for conditions other than malignant neoplasm Category: Medical Plan: As above (8) Preop cardiovascular exam: Code(s): Z01.810 - Encounter for preprocedural cardiovascular examination Category: Medical Plan: Preop for hydrocele surgery with Dr. Girard on 04/25/2025. Will review case with his primary cement paver and update this note. Plan I discussed with the patient the management of congestive heart failure, emphasizing the importance of monitoring for fluid retention and increasing physical activity. We reviewed the need for cardiac clearance for the upcoming hydrocele procedure and the management of blood thinners, particularly Eliquis and clopidogrel. I advised follow-up with nephrology to ensure optimal kidney function and scheduled a follow-up appointment in three months, with the option for earlier consultation if symptoms change. Patient Instructions: - Continue taking Bumex as prescribed. - Monitor for signs of fluid retention, such as swelling or shortness of breath. - Increase physical activity, aiming for daily movement. - Attend the scheduled hydrocele procedure on April 25, ensuring cardiac clearance is obtained. - Follow up with nephrology for kidney function monitoring. - Return for a follow-up appointment in three months or sooner if symptoms worsen. Patient was informed and verbally consented to the use of an ambient scribe for clinic note documentation during this visit. Visit time spent on chart review, interview, assessment, orders, documentation. Coding Level of Care Code Est Pt Level 4 (17782) Complex EM visit Add On G2211 Diagnoses Coronary artery disease I25.10 Ischemic cardiomyopathy I25.5 History of cardiac arrest Z86.74 Biventricular ICD (implantable cardioverter-defibrillator) in place Z95.810 Hypertension I10 Paroxysmal atrial flutter I48.92 Hospital discharge follow-up Z09 Preop cardiovascular exam Z01.810 CPT Codes EKG - CPT: [id number], Complete ([id number]) Time Spent (min) 32
== END 2025-03-21 11:24 | disposition home or self-care (01) ==
LOC: HO.HCS 09:43
PROVIDERS: PCP Internal Medicine; Visit Provider Nurse Practitioner Family
DX: I25.10 Atherosclerotic heart disease of native coronary artery without angina pectoris (principal); I25.5 Ischemic cardiomyopathy; Z86.74 Personal history of sudden cardiac arrest; Z95.810 Presence of automatic (implantable) cardiac defibrillator; I10 Essential (primary) hypertension; I48.92 Unspecified atrial flutter; Z09 Encounter for follow-up examination after completed treatment for conditions other than malignant neoplasm; Z01.810 Encounter for preprocedural cardiovascular examination
CPT/HCPCS: 93010; 99214; G2211

== ENCOUNTER → 2025-03-21 09:43 | Outpatient (BNVA) | payer MEDICARE, SELFPAY | PROVIDERS: PCP Internal Medicine; Visit Provider Nurse Practitioner Family | DX: Z01.810 Encounter for preprocedural cardiovascular examination (principal); I25.10 Atherosclerotic heart disease of native coronary artery without angina pectoris; I25.5 Ischemic cardiomyopathy; Z86.74 Personal history of sudden cardiac arrest; Z95.810 Presence of automatic (implantable) cardiac defibrillator; I10 Essential (primary) hypertension; I48.92 Unspecified atrial flutter | CPT/HCPCS: 93005; 99212 ==

== ENCOUNTER 2025-04-18 11:46 | Outpatient (AMB) | payer MEDICARE, SELFPAY ==
--- NOTE | 2025-04-18 11:54 | HO.NEPHOV_ITS ---
Vital Signs 04/18/25 11:55 Height 5 ft 9.5 in Weight 287 lb BMI 41.8 BP 130/62 Blood Pressure Location Rt brachial Position Sitting Pulse 78 Pulse Source Pulse Oximeter Pulse Oximetry (%) 93 Oxygen Delivery Method Room Air Intake Visit Reasons: 3 mth follow up-Conf Clearance Rep Required: No Accompanied by: Spouse Allergies No Known Allergies (No Known Allergies*) Allergy (Verified 04/18/25 11:57) Medication List - Last Reconciled 04/18/25 by Yogi Fitzgerald MD amiodarone 200 mg PO DAILY apixaban (Eliquis) 5 mg PO BID atorvastatin 40 mg PO BEDTIME bumetanide 2 mg PO BID carvedilol 6.25 mg PO BID clopidogrel 75 mg PO DAILY famotidine 20 mg PO DAILY hydralazine 50 mg PO BID ipratropium-albuterol 0.5 mg-3 mg(2.5 mg base)/3 mL 3 mL inhalation Q6H PRN isosorbide dinitrate 5 mg See Protocol PO BID melatonin 5 mg PO BEDTIME HPI Comments Details: 74-year-old male with 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 palpitations and confusion. The patient was recently admitted to [facility] from 03/25-04/09 following cardiac arrest x3 with ventricular fibrillation and cardiogenic shock and ischemic cardiomyopathy with EF 30-35% with akinesis of anterior wall and apex. Cardiac catheterization at that time showed EXTRACTOR TENDER RAW STOCK of the LAD and proximal right coronary artery with 70% stenosis in the circumflex artery. He had been referred to bypass surgery but was not felt to be a good candidate. Subsequently he developed a complete heart block and had a dual chamber ICD placed prior to discharging to short-term rehab. He was discharged on aspirin and Plavix as well as carvedilol 6.25 mg twice daily and isosorbide hydralazine combination. At the rehab, was noted to be confused from baseline though there is some question of post cardiac arrest encephalopathy due to anoxic brain injury. He was seen at [facility] during the hospitalization for chronic kidney disease. Baseline creatinine is around 1.6-1.8 mg/dL. He had cardiorenal syndrome and was successfully diuresed with intravenous agents Today he is here for follow-up. 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 Father No problems noted. Social History Household Members: Spouse Household Members Other:: Housing: Apartment Do you presently have visiting nurse or other home services: No Patient Tobacco Use Status: Former Tobacco user Tobacco use type: Cigarette e-Cigarette/Vaping Use: Never Used Second Hand Smoke Exposure: No Advance Directives Date on File: 09/12/24 service: Yes Current occupational status: retired Cognitive needs: No Hearing needs: No Vision needs: Yes (reading glasses) Physical Exam Vital Signs: Last Vital Signs Pulse 78 04/18/25 11:55 BP 130/62 04/18/25 11:55 Pulse Ox 93 04/18/25 11:55 Oxygen Delivery Method Room Air 04/18/25 11:55 BMI result Body Mass Index 41.8 Comfortable Neck supple no JVD. Lungs entry equal no rales. Heart S1-S2 heard no gallop or rub. Abdomen soft nontender. Neuro alert awake oriented. No asterixis. Extremities 2+ edema. Results Reviewed Nephrology Results: Hgb, (14.0-18.0) 12.8 g/dl L 02/07/25 WBC, (4.8-10.8) 5.5 X10*3/uL 02/07/25 Plt Count, (160-400) 141 X10*3/uL L 02/07/25 Sodium, (135-145) 142 mmol/L 02/07/25 Potassium, (3.3-5.1) 3.7 mmol/L 02/07/25 Chloride, (96-108) 105 mmol/L 02/07/25 Carbon Dioxide TNP 02/07/25 BUN, (9-16) 28 mg/dL H 02/07/25 Creatinine, (0.5-1.4) 1.96 mg/dL H 02/07/25 Calcium, (8.4-10.2) 8.3 mg/dL L 02/07/25 Assessment & Plan Assessment & Plan (1) CKD stage 3b, GFR 30-44 ml/min: Code(s): N18.32 - Chronic kidney disease, stage 3b Category: Medical (2) Acute on chronic HFrEF (heart failure with reduced ejection fraction): Code(s): I50.23 - Acute on chronic systolic (congestive) heart failure Category: Medical Plan CKD in a setting of cardio renal syndrome Renal function is close to baseline Still appears fluid overloaded Encouraged to stay on low slat diet Continue Bumex 2 mg b.i.d.. Can take additional dose in the morning if his weight increases. Would benefit from SGLT-2 inhibitors for cardio renal protection Await hydrocele surgery and she will follow-up in the next few months Orders: Orders Basic Metabolic Panel 4 Months I50.23 - Acute on chronic systolic (congestive) heart failure, N18.32 - Chronic kidney disease, stage 3b Coding Level of Care Code Est Pt Level 4 (76429) Diagnoses CKD stage 3b, GFR 30-44 ml/min N18.32 Acute on chronic HFrEF (heart failure with reduced ejection fraction) I50.23
[2025-04-18 11:55] VITALS: BP 130/62; PULSE 78; O2SAT 93; BMI 41.8
--- OUTSIDE RECORDS SUMMARY | 2025-04-18 12:58 | XMS_ITS | Clinical Summary ---
Author Organization [facility] Facility Address [address] [place] [address], [place] [address] Care Team Providers Care Broke Beater Name Role Phone Unavailable Primary Care Provider [...] of 1 - PCV) 2001 Influenza Vaccine (#1) 2025 Hepatitis B Vaccine Aged Out No longe r eligible based on patient's age to complete this topic Insurance [facility]
--- OUTSIDE RECORDS SUMMARY | 2025-04-18 12:58 | XMS_ITS | Patient Health Record ---
Author Organization [facility] [place] [facility] [place] Address [address] [place] [address] Care Team Providers Care Pattern Generator Operator Name Role Phone Jose Manuel Escalera MD Primary Care Provider Brandon Stokes Unavailable [phone] Allergies No Known Allergies Reason For Referral No Information Medications Medication SIG (Take, Route, Frequency, Duration) Notes Start Date End Date Status Warfarin Sodium 5 MG 1 tablet Orally Onc e a day; Duration: 30 day(s) Active Metoprolol Tartrate 50 MG 1 tablet with food Orally Twice a day; Duration: 30 day(s) Active Lisinopril 10 MG 1 tablet Orally Once a day; Duration: 30 day(s) Active Furosemide 20 MG 1 tablet Orally Once a day; Duration: 30 day(s) Active Atorvastatin Calcium 10 MG 1 tablet Oral ly Once a day; Duration: 30 day(s) Active amLODIPine Besylate 5 MG 1 tablet Orally Once a day; Duration: 30 day(s) Active Ammonium Lactate 12 % 1 application Exte rnally Twice a day; Duration: 30 days Active Immunizations Vaccine Route Administration [...] Problem Status W/U Status Risk Notes Problem Bilateral atherosclerosis of arteries of lower limbs (disorder) ([id number] ) Atherosclerosis of [place] artery of both lower extremities, with unspecified presence of clinical manifestation (I70.203) Active confirmed Q7(A), Q8(2B), Q9(1B,2 C) Vital Signs Blood pressure diastolic 80 mm Hg 10/15/2024 Height 5 ft 10 in in 10/15/2024 Blood pressure systolic 117 mm Hg 10/15/2024 Weight 285 lbs 10/15/2024 BMI 40.89 kg/m2 10/15/2024 Procedures Procedure Date Ordered Date Performed Result Body Sit e 10173-NTHWIBA NAIL, 6 OR MORE 10/15/2024 N/A 34188-KOGE SKIN LESIONS, OVER 4 10/15/2024 N/A Encounters Encounter Location Date Provider Diagnosis [facility] [address] [address] 10/15/2024 Brandon Lozano Atherosclerosis of [place] artery of both lower extremities, with unspecified presence of clinical manifestation I70.203 ; Tinea unguium B35.1 ; Pain in right toe(s) M79.674 and Pain in left toe(s) M79.[address] [facility] [address] 02/11/2025 Brandon Lozano Assessments Encounter Date Diagnosis (ICD Code) Assessment Notes Treatment Notes Treatment Clinical Notes Section Notes 10/15/2024 Atherosclerosis of [place] artery of both lower extremities, with unspecified presence of clinical manifestation (ICD-10 - I70.203) Q7(A), Q8(2B), Q9(1B,2C) 10/15/2024 Tinea unguium (ICD-10 - B35.1) 10/15/2024 Pain in right toe(s) (ICD-10 - M79.674) 10/15/2024 Pain in left toe(s) (ICD-10 - M79.675) Plan Of Treatment Pending Test Test Name Order Date [id number] NAIL, 6 OR MORE 02/13/2021 54398-BOJHNPW NAIL, 6 OR MORE 05/29/2021 34134-JPRFNZO NAIL, 6 OR MORE 12/04/2021 30566-QNRDKZM NAIL, 6 OR MORE 04/05/2022 [id number] NAIL, 6 OR MORE 11/25/2023 [id number] NAIL, 6 OR MORE 10/15/2024 59232-Mumeskhr Plate 11/25/2023 72353-Qmpjytdt Plate 04/05/2022 78735-Sxgobpjp Plate 05/29/2021 12420-LWRG SKIN LESIONS, OVER 4 05/29/20 32872-FKBI SKIN LESIONS, OVER 4 04/05/20 00608-ZZLP SKIN LESIONS, OVER 4 12/05/19 81212-KOZA SKIN LESIONS, OVER 4 11/25/19 62296-TVXN SKIN LESIONS, OVER 10/15/19 88022-LDHM SKIN LESIONS, 2 TO 4 02/14/20 21 Insurance Providers Payer Name Payer Address Payer Phone Subscriber Number Group Number Insured Name Patient Relationship to Insured Coverage Start Date Coverage End Date [employer] [address] [place] [address] [id number] Aaron Valverde Self - patient is the insured Medical (General) History Medical History History ICD Code Back,Hip,and Knee pain Dementia High blood pressure Stroke Measles Mumps Chicken pox CAD Heart attack - March 25, 2024 Surgical History Surgery Date(Month/Year) Hospitalization History Reason Date(Month/[place] [facility]
== END 2025-04-18 12:06 | disposition home or self-care (01) ==
LOC: HO.HKA 11:47
PROVIDERS: PCP Internal Medicine; Visit Provider Internal Medicine Hypertension Specialist
DX: N18.32 Chronic kidney disease, stage 3b (principal); I50.23 Acute on chronic systolic (congestive) heart failure
CPT/HCPCS: 99214

== ENCOUNTER → 2025-04-18 11:46 | Outpatient (BNVA) | payer MEDICARE, SELFPAY | PROVIDERS: PCP Internal Medicine; Visit Provider Internal Medicine Hypertension Specialist | DX: I13.0 Hypertensive heart and chronic kidney disease with heart failure and stage 1 through stage 4 chronic kidney disease, or unspecified chronic kidney disease (principal); N18.32 Chronic kidney disease, stage 3b; I50.23 Acute on chronic systolic (congestive) heart failure | CPT/HCPCS: 99212 ==

== ENCOUNTER 2025-04-25 08:42 | Day surgery (SDC) | payer MEDICARE, SELFPAY ==
--- OUTSIDE RECORDS SUMMARY | 2025-03-21 08:08 | XMS_ITS | Clinical Summary ---
Author Organization [facility] Facility Address [address] [place] [address], [place] [address] Care Team Providers Care Concept Artist Name Role Phone Unavailable Primary Care Provider [...] patient's age to complete this topic Insurance [facility]
[2025-04-21 12:59] VITALS: BMI 41.8
--- NOTE | 2025-04-22 12:36 | HO.ANESPROP2 ---
Documented by User: Roxanna Canas NP 04/22/25 12:50 HPI - Anesthesia Eval Consult details Narrative: 74 yr old male for bilateral hydrocele repair. [place]24[place] [facility] [place]: Can proceed with urological procedure with intermediate cardiac risk. Recommend Eliquis be held 2 days prior to the procedure and restart as soon as cleared by surgeon to do so, per ACC guidelines. Longer hold can be determined by surgeon if warranted. Plavix can be held 5 days prior to the procedure and restart as soon as cleared by surgeon to do so. Continue other cardiac medications. Call/consult Cardiology if needed. Paroxysmal atrial flutter: on eliquis, amiodorone Ischemic cardiomyopathy, Biventricular ICD in place due to Vtach arrest 10/24 to [place]: device check 01/2025 CKD stage 3B: cardio renal syndrome, kidney function close to baseline per 04/18/25 renal visit; on bumex COPD: former smoker PMFSH Active Problems Active Problems: All Active Problems (Updated 03/21/25 @ 11:32 by Pao Plata NP-C) Preop cardiovascular exam (Acute) Hydrocele in adult (Acute) CHF (congestive heart failure) (Acute) Hydrocele (Acute) COPD exacerbation (Acute) Acute on chronic HFrEF (heart failure with reduced ejection fraction) (Acute) CKD (chronic kidney disease) stage 3, GFR 30-59 ml/min (Acute) Elevated troponin (Chronic) Acute hypoxic respiratory failure (Acute) Hospital discharge follow-up (Acute) COVID (Acute) COVID-19 (Acute) Metabolic acidosis (Acute) Acute renal failure (Acute) COPD (chronic obstructive pulmonary disease) (Acute) CKD stage 3b, GFR 30-44 ml/min (Acute) Morbid obesity with BMI of 40.0-44.9, adult (Chronic) Paroxysmal atrial flutter (Acute) Hypertension (Acute) Biventricular ICD (implantable cardioverter-defibrillator) in place (Acute) Ischemic cardiomyopathy (Acute) History of cardiac arrest (Acute) Coronary artery disease (Acute) Past Medical History Medical History CKD stage 3b, GFR 30-44 ml/min COPD (chronic obstructive pulmonary disease) Morbid obesity with BMI of 40.0-44.9, adult Biventricular ICD (implantable cardioverter-defibrillator) in place Paroxysmal atrial flutter Coronary artery disease Ischemic cardiomyopathy Atrial flutter History of cardiac arrest Complete heart block Ventilator associated pneumonia STEMI (ST elevation myocardial infarction) Hypertension 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 Father No problems noted. Surgical History Surgical History S/P ICD (internal cardiac defibrillator) procedure (04/2024) Social History Social History Household Members: Spouse Household Members Other:: Housing: Apartment Do you presently have visiting nurse or other home services: No Patient Tobacco Use Status: Former Tobacco user Tobacco use type: Cigarette e-Cigarette/Vaping Use: Never Used Second Hand Smoke Exposure: No Advance Directives: No Advance Directives Information Provided: Yes Advance Directives Date on File: 09/12/24 service: Yes Current occupational status: retired Cognitive needs: No Hearing needs: No Vision needs: Yes (reading glasses) Meds Allergies Allergy/AdvReac Type Severity Reaction Status Date / Time No Known Allergies (No Known Allergy Verified 04/18/25 11:57 Allergies*) Home Medications ?Medication ?Instructions ?Recorded ?Confirmed ?Last Taken ?Type atorvastatin 40 mg tablet 40 mg PO BEDTIME 04/19/24 04/22/25 01/22/25 History clopidogrel 75 mg tablet 75 mg PO DAILY 04/19/24 04/22/25 04/20/25 History famotidine 20 mg tablet 20 mg PO DAILY 04/19/24 04/22/25 04/25/25 History melatonin 10 mg tablet 5 mg PO BEDTIME Sleep 01/28/25 04/22/25 Unknown History carvedilol 6.25 mg tablet 6.25 mg PO BID 04/18/25 04/22/25 04/25/25 History hydralazine 50 mg tablet 50 mg PO BID 04/18/25 04/22/25 Unknown History Exam Height,Weight and Vital Signs: Height 5 ft 9.5 in Weight 130.181 kg Pertinent Lab Results Pertinent Lab Results: Echo 08/2024 Conclusions: - Normal left ventricular cavity size. There is mildly increased left ventricular wall thickness. The left ventricular systolic function is moderately decreased. The visually estimated ejection fraction is between 30-35%. - The mid anterolateral segment is hypokinetic. - The apex, apical inferior, apical lateral, apical septum, mid anteroseptal, and mid inferolateral segments are akinetic. - The left atrium is severely dilated. - Moderately elevated right atrial pressure. Mild pulmonary hypertension is present. EKG 02/2025 Atrial-sensed ventricular-paced rhythm, rate 71 Narrative Narrative: Laboratory Tests 02/07/25 09:10 WBC 5.5 RBC 4.40 L Hgb 12.8 L Hct 40.7 L Plt Count 141 L Sodium 142 Potassium 3.7 BUN 28 H Creatinine 1.96 H Documented by User: Amanda Silver MD 04/25/25 10:00 [facility] Past Medical History Medical History CKD stage 3b, GFR 30-44 ml/min COPD (chronic obstructive pulmonary disease) Morbid obesity with BMI of 40.0-44.9, adult Biventricular ICD (implantable cardioverter-defibrillator) in place Paroxysmal atrial flutter Coronary artery disease Ischemic cardiomyopathy Atrial flutter History of cardiac arrest Complete heart block Ventilator associated pneumonia STEMI (ST elevation myocardial infarction) Hypertension 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 Father No problems noted. Family history of problems with anesthesia: No Surgical History Surgical History S/P ICD (internal cardiac defibrillator) procedure (04/2024) History of Problems with Anesthesia: No Social History Social History Household Members: Spouse Household Members Other:: Housing: Apartment Do you presently have visiting nurse or other home services: No Patient Tobacco Use Status: Former Tobacco user Tobacco use type: Cigarette e-Cigarette/Vaping Use: Never Used Second Hand Smoke Exposure: No Advance Directives: No Advance Directives Information Provided: Yes Advance Directives Date on File: 09/12/24 service: Yes Current occupational status: retired Cognitive needs: No Hearing needs: No Vision needs: Yes (reading glasses) Meds Allergies Allergy/AdvReac Type Severity Reaction Status Date / Time No Known Allergies (No Known Allergy Verified 04/18/25 11:57 Allergies*) Home Medications ?Medication ?Instructions ?Recorded ?Confirmed ?Last Taken ?Type atorvastatin 40 mg tablet 40 mg PO BEDTIME 04/19/24 04/22/25 01/22/25 History clopidogrel 75 mg tablet 75 mg PO DAILY 04/19/24 04/22/25 04/20/25 History famotidine 20 mg tablet 20 mg PO DAILY 04/19/24 04/22/25 04/25/25 History melatonin 10 mg tablet 5 mg PO BEDTIME Sleep 01/28/25 04/22/25 Unknown History carvedilol 6.25 mg tablet 6.25 mg PO BID 04/18/25 04/22/25 04/25/25 History hydralazine 50 mg tablet 50 mg PO BID 04/18/25 04/22/25 Unknown History Exam Airway Mallampati Class: III TM Dist: <=3cm Neck ROM: Poor Heart: rrr Lungs: cta Assessment and Plan Assessment Anesthesia Assessment: Anesthesia Plan Discussed and Chart Reviewed Final Anesthetic Review Family History of Problems with Anesthesia: No History of Problems with Anesthesia: No NPO: Yes ASA Class: III Final Preanesthetic Review: No Changes in Pt Med Stat, Meds/Allgs Chart Reviewed, Consent Obtained/Reviewed and Anes Risks/Benef Reviewed Patient Risk: High Procedure Risk: Low Anesthetic Plan Anesthetic Plan: GA and MAC: Disposition: Standard PACU
[2025-04-25 09:53] VITALS: BP 157/73; PULSE 76; RESP 18; TEMP 36.6; O2SAT 97; BMI 41.4
[2025-04-25] MEDS: Lactated Ringers 1,000 ML 50 ML IVCONT (09:58)
--- NOTE | 2025-04-25 10:00 | P.HPSUR_ITS ---
Pre-Procedural Eval Section A - 24 Hr Update-Section A only Date of Service: 04/25/25 The patient is an INPATIENT: No Changes since office visit: No Cold of Flu in the past 2 weeks, No New Medical Problems, No Changes in Medication and No Patient answered all questions The patient has been examined within 24 hours of the surgical procedure. The History & Physical has been completed within 30 days and I have reviewed it.: No Section B - Complete if H&P > 30 days Chief Complaint: Hydrocele, unspecified Relevant Family History (Specify if Yes): No Relevant Social History: None Present Medications: see Short Stay Collaborative assessment Medical History: Significant History History of Previous Operations: No relevant previous surgery Allergies: Allergies Allergy/AdvReac Type Severity Reaction Status Date / Time No Known Allergies (No Known Allergy Verified 04/18/25 11:57 Allergies*) Review of Systems Sugical H&P ROS: Negative: Constitution, Cardiovascular, Respiratory, N eurological, Psychiatric, Hem-Onc, Allergic/Immunologic, Gastrointestinal, Genitourinary, Musculoskeletal, Integumentary, Endocrine and Eyes/Ears/Nose/Throat Exam Surgical H&P Exam: Normal: HEENT, Normal: Heart, Normal: Lungs, Normal: Extremities, Normal: Abdomen, Normal: Skin and Normal: Neurological Plan Diagnosis/Plan: Unchanged (plan bilateral hydrocelectomy) I have reviewed the history and physical and performed a pertinent physical examination on my patient. No changes have occurred unless specified. Time Spent With Patient Time: Total time managing care of this patient today ____ minutes.
[2025-04-25 11:40] VITALS: BP 137/68; PULSE 69; RESP 19; TEMP 36.1; O2SAT 90
--- NOTE | 2025-04-25 11:44 | W.PM.OPN ---
Operative Note Operative Note Date of Service: 04/25/25 Narrative: PreOperative Diagnosis: Large left hydrocele, right hydrocele Post Operative Diagnosis: Large left hydrocele, right spermatocele Procedure: Left Hydrocelectomy, right spermatocelectomy Surgeon: Dr Kojo Girard Anesthesia: General Indications for procedure: Bilateral hydrocele with persistent discomfort Procedure: After informed consent was verified the patient was brought to the operating room and placed in a supine position. Anesthesia was administered per protocol. Patient was appropriately shaved and genitals were prepped and draped in sterile fashion. Safety pause time-out was performed. Antibiotics being given. Local anesthetic was infiltrated under the skin in a vertical fashion on the scrotum along the median raphe. Skin incision was made using a blade through the subdermal layer. Using Allis clamps dissection was performed to the level of the tunica. The tunica around the testicle was elevated and dissected free from surrounding tissue. The avascular plane around the tunica was entered and using a wet sponge blunt dissection was performed. Any small bleeding perforators were cauterized. 3-0 Vicryl was used to create stay sutures and elevate the tunica The tunica was opened in a longitudinal fashion.. Fluid was removed with suction - 350 cc. The testicle sac was elevated. Excess thickened sac was dissected and removed using a LigaSure cautery instrument to minimize post procedure bleeding. Skin edges of the tunica were cauterized carefully in order to try to minimize postprocedure hematoma. Small accessory appendices were removed from the head of epididymis. The testicle with resected sac was placed back into a dependent portion of the scrotum. Due to the large size of the hydrocele a decision was made to leave a Chacho drain. The quarter-inch Arlington drain was placed running from a superior to inferior dependent position. Overlying deep tissue layer was closed with a running 3-0 Vicryl suture. Directing attention to the right side. The overlying midline tissue was dissected. The tunica around the testicle was elevated and dissected free from surrounding tissue. A small incision was made through the tunic. Edges were held using Allis clamps. Fluid was removed. The testicle was delivered from the tunic. The spermatocele was seen within the epididymis of the testicle. Using Bovie cautery spermatocele was carefully dissected free from attachments to the upper pole of the testicle and the epididymis. Once free the stalk of the spermatocele was identified and cauterized. Fluid was removed from the spermatocele and the empty spermatocele sac was removed. Small accessory appendices were removed from the head of epididymis. The testicle was placed back within tunica inside the scrotum. The tunica was closed using a running 3-0 Vicryl suture. Overlying tissue was reapproximated using a running 3-0 Vicryl suture. Skin was closed with interrupted 4-0 chromic sutures. Chacho drain secured using safety pin. Soft fluff sponges were placed with mesh pants as dressing. Local anesthetic was placed in inguinal cord for post procedure pain relief. Patient tolerated procedure well was extubated in operating room transferred in stable condition to the recovery area Pathology: Hydrocele sac Drains: Arlington drain as above
[2025-04-25 11:45] VITALS: BP 114/55; PULSE 69; RESP 16; O2SAT 92
[2025-04-25 11:50] VITALS: BP 110/47; PULSE 67; RESP 16; O2SAT 92
[2025-04-25 11:55] VITALS: BP 102/40; PULSE 65; RESP 16; O2SAT 92
[2025-04-25 12:00] VITALS: BP 123/55; PULSE 66; RESP 16; TEMP 36.1; O2SAT 100
== END 2025-04-25 12:45 | disposition home or self-care (01) ==
PROVIDERS: PCP Internal Medicine; Visit Provider Urology
PROC: (CPT 55060; principal; 2025-04-25 10:40)
DX: N43.3 Hydrocele, unspecified (principal); N43.41 Spermatocele of epididymis, single; I12.9 Hypertensive chronic kidney disease with stage 1 through stage 4 chronic kidney disease, or unspecified chronic kidney disease; N18.32 Chronic kidney disease, stage 3b; E78.5 Hyperlipidemia, unspecified; J44.9 Chronic obstructive pulmonary disease, unspecified; I48.0 Paroxysmal atrial fibrillation; I48.92 Unspecified atrial flutter; I25.10 Atherosclerotic heart disease of native coronary artery without angina pectoris; I25.5 Ischemic cardiomyopathy; Z86.74 Personal history of sudden cardiac arrest; I44.2 Atrioventricular block, complete; Z95.810 Presence of automatic (implantable) cardiac defibrillator; E66.01 Morbid (severe) obesity due to excess calories; Z68.41 Body mass index [BMI] 40.0-44.9, adult; Z79.01 Long term (current) use of anticoagulants; Z87.891 Personal history of nicotine dependence; Z79.899 Other long term (current) drug therapy
CPT/HCPCS: 55040; 54840; 88302; J0690; J2003; J2704; J2795; J3010

== ENCOUNTER → 2025-04-25 08:42 | Outpatient (BNV) | payer MEDICARE, SELFPAY | PROVIDERS: PCP Internal Medicine; Visit Provider Urology | DX: N43.3 Hydrocele, unspecified (principal); N43.41 Spermatocele of epididymis, single | CPT/HCPCS: 54840; 55040 ==

== ENCOUNTER 2025-04-29 06:44 | Emergency (ER) | payer MEDICARE, SELFPAY ==
[2025-04-29 06:55] VITALS: BP 137/70; BP 180/98; PULSE 89; PULSE 99; RESP 18; TEMP 36.4; O2SAT 94; O2SAT 99; BMI 34.8
[2025-04-29 07:04] VITALS: BP 137/70; PULSE 89; RESP 18; TEMP 36.4; O2SAT 94
--- NOTE | 2025-04-29 07:11 | ED.MALEGU ---
HPI - Male Genitourinary General Chief complaint: Urogenital-Male Stated complaint: groin pain Time Seen by Provider: 04/29/25 07:01 Source: patient, EMS and old records reviewed Mode of arrival: EMS Limitations: no limitations History of Present Illness ED Provider: RUTH GREEN Narrative: 74 yo male with PMH of CHF, CKD, PAF on eliquis, HTN, CAD, ischemic cardiomyopathy PPM, cardiac arrest in past here with c/o having hydrocele procedure here with Dr. Girard on 04/25/25 he had L hydrocelectomy and R spermatocelectomy has vinicius drain in place post procedure he states he came in due to worsening pain and swelling of his scrotum. He states he has not seen it yet. He denies n/v fevers. He reports he has been urinating. MD Complaint: testicle pain and testicle swelling Onset (ago): day(s) (2) Duration: constant Location: right testicle and left testicle Radiation: penis Severity: severe Quality: aching Relieving factors: none Exacerbating factors: palpation and movement Context: other Associated symptoms: Reports swelling Related Data Home Medications ?Medication ?Instructions ?Recorded ?Confirmed atorvastatin 40 mg tablet 40 mg PO BEDTIME 04/19/24 04/22/25 clopidogrel 75 mg tablet 75 mg PO DAILY 04/19/24 04/22/25 famotidine 20 mg tablet 20 mg PO DAILY 04/19/24 04/22/25 melatonin 10 mg tablet 5 mg PO BEDTIME Sleep 01/28/25 04/22/25 carvedilol 6.25 mg tablet 6.25 mg PO BID 04/18/25 04/22/25 hydralazine 50 mg tablet 50 mg PO BID 04/18/25 04/22/25 Previous Rx's ?Medication ?Instructions ?Recorded apixaban 5 mg tablet (Eliquis) 5 mg PO BID #20 tabs 04/22/24 isosorbide dinitrate 5 mg tablet 5 mg PO BID #180 tabs 02/15/25 amiodarone 200 mg tablet 200 mg PO DAILY #90 tabs 04/05/25 bumetanide 2 mg tablet 2 mg PO BID #180 tabs 04/18/25 hydrocodone 5 mg-acetaminophen 300 1 tab PO Q8H PRN pain (scale score 04/25/25 mg tablet 4-6) 7 days #14 tabs hydrocodone 5 mg-acetaminophen 325 1 tab PO Q4H PRN pain 7 days #14 04/25/25 mg tablet tabs sulfamethoxazole 400 1 tab PO DAILY 5 days #5 tabs 04/25/25 mg-trimethoprim 80 mg tablet (Bactrim) ipratropium 0.5 mg-albuterol 3 mg 3 ml inhalation Q6H PRN for 04/29/25 (2.5 mg base)/3 mL nebulization wheezing #90 mL soln Allergies Allergy/AdvReac Type Severity Reaction Status Date / Time No Known Allergies (No Known Allergy Verified 04/29/25 06:57 Allergies*) Review of Systems Review of Systems: Constitutional : No Fever, No Chills, No Fatigue ENT/Mouth : No sore throat, No Rhinorrhea Eyes: No Eye Pain, No Swelling, No Redness Cardiovascular : No Chest Pain, No SOB, No Dyspnea on Exertion Respiratory : No Cough, No Sputum Gastrointestinal : No Nausea, No Vomiting, No Diarrhea, No abdominal Pain Genitourinary : No Dysuria, No Urinary Frequency, No Hematuria,pos testicular pain and pos swelling Musculoskeletal : No joint pain, No Myalgias, No Joint Swelling Skin : No Skin Lesions, No rash Neuro : No Weakness, No Numbness All other systems reviewed and are negative PMFSH Past Medical History Attestation statement: The following information was validated with the patient. 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 Father No problems noted. Social History Social History Household Members: Spouse Household Members Other:: Housing: Apartment Are you a primary acute care assistant to a significant other at home: No Do you presently have visiting nurse or other home services: No Patient Tobacco Use Status: Former Tobacco user Tobacco use type: Cigarette Smoked in Last 30 Days: No e-Cigarette/Vaping Use: Never Used Second Hand Smoke Exposure: No Use of substances other than those prescribed or required for medical reasons: No Advance Directives: Yes Advance Directives on File: Yes Advance Directives Date on File: 09/12/24 Do you have a plan to hurt others: No Plan service: Yes Current occupational status: retired Cognitive needs: No Hearing needs: No Vision needs: Yes (reading glasses) Physical Exam Vital Signs: Vital Signs: Last Vital Signs Temp 97.5 F 04/29/25 07:04 Pulse 89 04/29/25 07:04 Resp 18 04/29/25 07:04 BP 137/70 04/29/25 07:04 Pulse Ox 94 04/29/25 07:04 O2 Del Method Room Air 04/29/25 07:04 BMI result Body Mass Index 34.8 Appearance: Alert. Oriented X3. No acute distress. Eyes: Pupils equal, round and reactive to light. ENT: Pharynx normal. Neck: Normal inspection. Neck supple. CVS: Normal heart rate and rhythm. Pulses normal. Respiratory: No respiratory distress. Breath sounds normal. obese Abdomen: Soft and nontender. Scrotum: swelling, contusion, no purulence, no warmth, penis itself is swollen unable to visualize glans or urethra, no bleeding noted on incisions Skin: Skin warm and dry. Normal skin color. Extremities: No lower extremity edema. Neuro: Oriented X 3. No motor deficit. No sensory deficit. CN2-12 intact Medical Decision Making Medical Decision Making MDM Narrative: 74 yo male with PMH of CHF, CKD, PAF on eliquis, HTN, CAD, ischemic cardiomyopathy PPM, cardiac arrest in past here with c/o s/p hydrocelectomy/spermatolectomy on 04/25/25 with Shaji now here with scrotal swelling, pain, retention of 1360 - at this time I have consulted Dr. Girard on arrival for further input. He plans to come to bedside to assess patient and place jackson. Differential Diagnosis Differential Diagnoses: The differential diagnosis associated with the presentation includes hematoma, retention, pos operative swelling Admission/Observation Consideration of admission/observation: Escalation of care including admission/observation considered s/p jackson blue cap and release urine every 4 hours Consult Healthcare Provider Management of the patient was discussed with: Nurse Sexual Assault Dr. Shaji jackson in place Lab Data MDM Lab Attestation statement: I reviewed the patient's lab results. 04/29/25 07:21 04/29/25 07:18 Labs: Lab Results 04/29/25 04/29/25 Range/Units 07:18 07:21 WBC 7.6 (4.8-10.8) X10*3/uL RBC 3.99 L (4.60-5.80) X10*6/uL Hgb 11.9 L (14.0-18.0) g/dl Hct 35.4 L (42.0-52.0) % MCV 88.7 (80.0-98.0) fL MCH 29.8 (27.0-33.0) pg MCHC 33.6 (31.0-36.0) g/dl RDW 15.9 (11.0-16.0) % Plt Count 121 L (160-400) X10*3/uL MPV 9.5 (9.4-12.4) fL Immature Gran % (Auto) 0.7 H (0.0-0.4) % Neut % (Auto) 82.6 H (45-73) % Lymph % (Auto) 6.6 L (20-40) % [place] % (Auto) 9.2 (2-11) % Eos % (Auto) 0.4 (0-4) % Baso % (Auto) 0.5 (0-2) % Lymph # (Auto) 0.5 L (1.2-4.9) X10*3/uL [place] # (Auto) 0.7 (0.1-1.2) X10*3/uL Eos # (Auto) 0.0 (0.0-0.4) X10*3/uL Baso # (Auto) 0.0 (0.0-0.2) X10*3/uL Abs Immat Gran (auto) 0.05 H (0.00-0.03) X10*3/uL Absolute Neuts (auto) 6.3 (2.0-8.3) x10*3/uL Absolute Nucleated RBC 0.000 (0.0-0.012) X10*3/uL Nucleated RBC % (auto) 0.0 (0.0-0.2) /100WBC Sodium 142 (135-145) mmol/L Potassium 3.5 (3.3-5.1) mmol/L Chloride 100 (96-108) mmol/L Carbon Dioxide 19 L (22-29) mmol/L Anion Gap 27 H (12-20) BUN 30 H (9-16) mg/dL Creatinine 2.07 H (0.5-1.4) mg/dL Estim Creat Clear Calc 38.3 Estimated GFR 32 Random Glucose 128 H (60-115) mg/dL Calcium 8.8 D (8.4-10.2) mg/dL External Record Review External record reviewed: Inpatient record and Outpatient record Discharge Plan Discharge Clinical Impression: Acute urinary retention Patient Disposition: Home, Self-Care Instructions: Urinary Retention in Men (ED), Jackson Catheter Placement and Care (ED) Additional Instructions: remove blue cap at end of jackson every 4 hours to release urine return for any worsening symptoms or concerns please follow up with Dr. Girard [facility] will be contacting you within 2 business days after being discharged from the Emergency Department. During this phone call, they will inform you when your follow up appointment will be scheduled. If you have not received a call from [facility] after 2 business days, please call the office at [phone]. Prescriptions: No Action isosorbide dinitrate 5 mg tablet 5 mg PO BID Qty: 180 1RF Protocol: Hold for SBP< HOLD for SBP < : 90 amiodarone 200 mg tablet 200 mg PO DAILY Qty: 90 1RF bumetanide 2 mg tablet 2 mg PO BID Qty: 180 0RF Rx Instructions: Take one capsule twice daily to prevent fluid overload. ipratropium-albuterol 0.5 mg-3 mg(2.5 mg base)/3 mL solution for nebulization 3 ml inhalation Q6H PRN (Reason: for wheezing) Qty: 90 1RF atorvastatin 40 mg Tablet 40 mg PO BEDTIME clopidogrel 75 mg Tablet 75 mg PO DAILY famotidine 20 mg Tablet 20 mg PO DAILY Eliquis 5 mg Tablet 5 mg PO BID Qty: 20 0RF melatonin 10 mg tablet 5 mg PO BEDTIME sulfamethoxazole-trimethoprim [Bactrim] 400-80 mg tablet 1 tab PO DAILY 5 Days Qty: 5 0RF hydrocodone-acetaminophen 5-300 mg tablet 1 tab PO Q8H PRN (Reason: pain (scale score 4-6)) 7 Days Qty: 14 0RF Rx Instructions: Partial Fill upon patient request. hydrocodone-acetaminophen 5-325 mg tablet 1 tab PO Q4H PRN (Reason: pain) 7 Days Qty: 14 0RF Rx Instructions: Partial Fill upon patient request. carvedilol 6.25 mg tablet 6.25 mg PO BID hydralazine 50 mg tablet 50 mg PO BID Print Language: French
--- OUTSIDE RECORDS SUMMARY | 2025-04-29 07:22 | XMS_ITS | Clinical Summary ---
Author Organization [facility] Facility Address [address] [place] [address], [place] [address] Care Team Providers Care Bariatric Nurse Name Role Phone Unavailable Primary Care Provider [...] patient's age to complete this topic Insurance [facility]
--- OUTSIDE RECORDS SUMMARY | 2025-04-29 07:22 | XMS_ITS | Patient Health Record ---
Author Organization [facility] Matilde jes MilliganPenelope Address [address] [place] [address] Care Team Providers Care Transport Aide Name Role Phone Jose Manuel Escalera MD Primary Care Provider Brandon Stokes Unavailable [phone] Allergies No Known Allergies Reason For Referral [...] atherosclerosis of arteries of lower limbs (disorder) ([id number] ) Atherosclerosis of oneida artery of both lower extremities, with unspecified presence of clinical manifestation (I70.203) Active confirmed Q7(A), Q8(2B), Q9(1B,2 C) Vital Signs Blood pressure diastolic 80 mm Hg 10/15/2024 Height 5 ft 10 in in 10/15/2024 Blood pressure systolic 117 mm Hg 10/15/2024 Weight 285 lbs 10/15/2024 BMI 40.89 kg/m2 10/15/2024 Procedures Procedure Date Ordered Date Performed Result Body Sit e 67010-WVIBOLE NAIL, 6 OR MORE 10/15/2024 N/A 98560-YAXC SKIN LESIONS, OVER 4 10/15/2024 N/A Encounters Encounter Location Date Provider Diagnosis [facility] [address] [address] 10/15/2024 Brandon Lozano Atherosclerosis of oneida artery of both lower extremities, with unspecified presence of clinical manifestation I70.203 ; Tinea unguium B35.1 ; Pain in right toe(s) M79.674 and Pain in left toe(s) M79.[address] [facility] [address] 02/11/2025 Brandon Lozano Assessments Encounter Date Diagnosis (ICD Code) Assessment Notes Treatment Notes Treatment Clinical Notes Section Notes 10/15/2024 Atherosclerosis of oneida artery of both lower extremities, with unspecified presence of clinical manifestation (ICD-10 - I70.203) Q7(A), Q8(2B), Q9(1B,2C) 10/15/2024 Tinea unguium (ICD-10 - B35.1) 10/15/2024 Pain in right toe(s) (ICD-10 - M79.674) 10/15/2024 Pain in left toe(s) (ICD-10 - M79.675) Plan Of Treatment Pending Test Test Name Order Date 71243-LYPOHST NAIL, 6 OR MORE 02/13/2021 14488-PQJGYIU NAIL, 6 OR MORE 05/29/2021 53296-XSRXBAM NAIL, 6 OR MORE 12/04/2021 66091-GLOYWMI NAIL, 6 OR MORE 04/05/2022 01752-XXYAJXK NAIL, 6 OR MORE 11/25/2023 62237-MNUBLRI NAIL, 6 OR MORE 10/15/2024 48179-Pkpdlvmi Plate 11/25/2023 31036-Qudkwoln Plate 04/05/2022 79458-Tzasstsv Plate 05/29/2021 93981-UMKX SKIN LESIONS, OVER 4 05/29/20 62031-KWOI SKIN LESIONS, OVER 4 04/05/20 63677-JFHX SKIN LESIONS, OVER 4 12/05/19 37780-ZBDB SKIN LESIONS, OVER 4 11/25/19 60289-OUPW SKIN LESIONS, OVER 10/15/19 85157-WCMW SKIN LESIONS, 2 TO 4 02/14/20 21 Insurance Providers Payer Name Payer Address Payer Phone Subscriber Number Group Number Insured Name Patient Relationship to Insured Coverage Start Date Coverage End Date [employer] [address] [place] [address] [phone] [id number] Aaron Valverde Self - patient is the insured Medical (General) History Medical History History ICD Code Back,Hip,and Knee pain Dementia High blood pressure Stroke Measles Mumps Chicken pox CAD Heart attack - March 25, 2024 Surgical History Surgery Date(Month/Year) Hospitalization History Reason Date(Month/[place] [facility] [place]
[2025-04-29 07:23] LABS: MANUAL DIFF FLAG NO
[2025-04-29 07:33] LABS: Hematocrit 35.4 % (42.0-52.0); Hemoglobin 11.9 g/dl (14.0-18.0); Imm Gran Abs Auto 0.05 X10*3/uL (0.00-0.03); Imm Gran Pct Auto 0.7 % (0.0-0.4); Lymphocytes Absolute Auto 0.5 X10*3/uL (1.2-4.9); Mean Corpuscular HGB Conc 33.6 g/dl (31.0-36.0); Mean Corpuscular Hemoglobin 29.8 pg (27.0-33.0); Mean Corpuscular Volume 88.7 fL (80.0-98.0); NRBC Abs Auto 0.000 X10*3/uL (0.0-0.012); NRBC Pct Auto 0.0 /100WBC (0.0-0.2); Platelet Count 121 X10*3/uL (160-400); Red Blood Count 3.99 X10*6/uL (4.60-5.80); White Blood Count 7.6 X10*3/uL (4.8-10.8)
[2025-04-29 07:42] LABS: Anion Gap 27 (12-20); Blood Urea Nitrogen 30 mg/dL (9-16); Calcium 8.8 mg/dL (8.4-10.2); Carbon Dioxide 19 mmol/L (22-29); Chloride 100 mmol/L (96-108); Creatinine Clr Calc Pharmacy 38.3; Estimated Glomerular Filt Rate 32; Potassium 3.5 mmol/L (3.3-5.1); Sodium 142 mmol/L (135-145)
[2025-04-29 08:52] VITALS: BP 137/70; PULSE 89; RESP 18; TEMP 36.4; O2SAT 94
== END 2025-04-29 09:24 | disposition home or self-care (01) ==
PROVIDERS: Emergency Provider Emergency Medicine
DX: R33.9 Retention of urine, unspecified (principal); N50.82 Scrotal pain; Z98.890 Other specified postprocedural states; I13.0 Hypertensive heart and chronic kidney disease with heart failure and stage 1 through stage 4 chronic kidney disease, or unspecified chronic kidney disease; N18.9 Chronic kidney disease, unspecified; I50.9 Heart failure, unspecified
CPT/HCPCS: 36415; 80048; 85025; 99283; 99284

== ENCOUNTER 2025-05-04 12:44 | Emergency (ER) | payer MEDICARE, SELFPAY ==
[2025-05-04 12:56] VITALS: BP 100/49; PULSE 78; RESP 16; TEMP 36.4; O2SAT 94; BMI 40.5
--- NOTE | 2025-05-04 12:57 | ED.GENADULT ---
HPI - General Adult General Chief complaint: Urogenital-Male Stated complaint: hydroseal surgery, cap falling off catheter, rash Time Seen by Provider: 05/04/25 14:12 Source: patient, family and old records reviewed Mode of arrival: ambulatory Limitations: no limitations History of Present Illness ED Provider: RUTH HPI narrative: 74 yo male with PMH of CHF, CKD, PAF on eliquis, HTN, CAD, ischemic cardiomyopathy PPM, cardiac arrest in past here with c/o having hydrocele procedure here with Dr. Girard on 04/25/25 seen on 04/29 had jackson placed by Urology (swelling and retaining about 2L of urine) he was sent home with capping device and told to release urine every 4 hours. He returns today with c/o his capping device falling out all the time, being wet at night. He wants a bag for night time. notes now he has pressure injury to buttocks due to sitting all the time and she thinks the urine getting on him. They are here to talk about catheter options, VNA and wound protection. complaint: jackson issue/pressure ulcers Onset (ago): day(s) (few) Location: genitals and buttocks Radiation: non-radiation Severity: mild Quality: aching Pain Consistency: intermittent Relieving factors: none Exacerbating factors: immobilization Associated symptoms: denies other symptoms Treatments prior to arrival: none Related Data Home Medications ?Medication ?Instructions ?Recorded ?Confirmed melatonin 10 mg tablet 5 mg PO BEDTIME Sleep 01/28/25 04/22/25 hydralazine 50 mg tablet 50 mg PO BID 04/18/25 04/22/25 Previous Rx's ?Medication ?Instructions ?Recorded apixaban 5 mg tablet (Eliquis) 5 mg PO BID #20 tabs 04/22/24 isosorbide dinitrate 5 mg tablet 5 mg PO BID #180 tabs 02/15/25 amiodarone 200 mg tablet 200 mg PO DAILY #90 tabs 04/05/25 bumetanide 2 mg tablet 2 mg PO BID #180 tabs 04/18/25 hydrocodone 5 mg-acetaminophen 300 1 tab PO Q8H PRN pain (scale score 04/25/25 mg tablet 4-6) 7 days #14 tabs hydrocodone 5 mg-acetaminophen 325 1 tab PO Q4H PRN pain 7 days #14 04/25/25 mg tablet tabs sulfamethoxazole 400 1 tab PO DAILY 5 days #5 tabs 04/25/25 mg-trimethoprim 80 mg tablet (Bactrim) ipratropium 0.5 mg-albuterol 3 mg 3 ml inhalation Q6H PRN for 04/29/25 (2.5 mg base)/3 mL nebulization wheezing #90 mL soln levofloxacin 500 mg tablet 500 mg PO DAILY 5 days #5 tabs 05/02/25 Donut pillow #1 ea 05/04/25 atorvastatin 40 mg tablet 40 mg PO BEDTIME #90 tabs 05/04/25 carvedilol 6.25 mg tablet 6.25 mg PO BID #180 tabs 05/04/25 clopidogrel 75 mg tablet 75 mg PO DAILY #90 tabs 05/04/25 famotidine 20 mg tablet 20 mg PO DAILY #90 tabs 05/04/25 foam bandage 4 X 4 (Mepilex) #5 ea 05/04/25 Allergies Allergy/AdvReac Type Severity Reaction Status Date / Time No Known Allergies (No Known Allergy Verified 05/04/25 12:59 Allergies*) Review of Systems Review of Systems: Constitutional : No Fever, No Chills, No Fatigue ENT/Mouth : No sore throat, No Rhinorrhea Eyes: No Eye Pain, No Swelling, No Redness Cardiovascular : No Chest Pain, No SOB, No Dyspnea on Exertion Respiratory : No Cough, No Sputum Gastrointestinal : No Nausea, No Vomiting, No Diarrhea, No abdominal Pain Genitourinary : No Dysuria, No Urinary Frequency, No Hematuria, Musculoskeletal : No joint pain, No Myalgias, No Joint Swelling Skin : pos Skin Lesions, No rash Neuro : No Weakness, No Numbness, No Dizziness, positive Headache All other systems reviewed and are negative [facility] Past Medical History Attestation statement: The following information was validated with the patient. 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 Father No problems noted. Social History Social History Household Members: Spouse Household Members Other:: Housing: Apartment Are you a primary managed care liaison to a significant other at home: No Do you presently have visiting nurse or other home services: No Patient Tobacco Use Status: Former Tobacco user Tobacco use type: Cigarette e-Cigarette/Vaping Use: Never Used Second Hand Smoke Exposure: No Advance Directives: Yes Advance Directives on File: Yes Advance Directives Date on File: 09/12/24 Do you have a plan to hurt others: No Plan service: Yes Current occupational status: retired Cognitive needs: No Hearing needs: No Vision needs: Yes (reading glasses) Physical Exam ED Vital Signs: Vital Signs - 24 hr 05/04/25 12:56 05/04/25 14:42 Temperature 97.5 F Pulse Rate 78 69 Respiratory Rate 16 18 Blood Pressure 100/49 L 146/77 H Pulse Oximetry 94 94 Oxygen Delivery Method Room Air Room Air BMI result Body Mass Index 40.5 Appearance: Alert. Oriented X3. No acute distress. Eyes: Pupils equal, round and reactive to light. ENT: Pharynx normal. Neck: Normal inspection. Neck supple. CVS: Normal heart rate and rhythm. Pulses normal. Respiratory: No respiratory distress. Breath sounds normal. Abdomen: Soft and nontender. obese : much improved no further penile swelling no discharge no redness, stil mild scrotal swelling Buttocks: mild redness but no tissue loss or destruction on bilateral buttocks Skin: Skin warm and dry. Normal skin color. Normal skin turgor. Extremities: No lower extremity edema. No calf ttp Neuro: Oriented X 3. No motor deficit. No sensory deficit. Course Course Course Narrative: This is a rapid medical exam performed by Seth Ward NP: Additional HPI, ROS, PE not included below will be deferred to primary provider. Patient is a 74-year-old male with history of CHF, CKD, PAF on eliquis, HTN, CAD, ischemic cardiomyopathy PPM, cardiac arrest in past here presenting with who reports that the cap on his indwelling catheter keeps falling off and urine has been spilling everywhere, also having scrotal erythema. states she has been applying neosporin to area. Can't get in to see ortho. Medical Decision Making Medical Decision Making MDM Narrative: 74 yo male with PMH of CHF, CKD, PAF on eliquis, HTN, CAD, ischemic cardiomyopathy PPM, cardiac arrest here with c/o leaking cap and issues with jackson bag - he also has superficial pressure injury to buttocks despite not sitting and using donut. He has no fevers, he has been urinating well. Plan to get VNA, wound care, discuss cath care Differential Diagnosis Differential Diagnoses: The differential diagnosis associated with the presentation includes needs jackson care and wound care Admission/Observation Consideration of admission/observation: Escalation of care including admission/observation considered PT/CM involved VNA at home discussed wound care and after shared decision making the family and patient do not want to cap anymore they cannot handle the care they do not want rehab. He wants a leg bag only which is reasonable they do not want night bag as it will be too hard to change They are aware of the risks. Consult Healthcare Provider Management of the patient was discussed with: Legal Support Analyst Lab Data [facility] Lab Attestation statement: I reviewed the patient's lab results. Independent Historian Clinical information obtained from an independent historian. History obtained from or confirmed by: Spouse External Record Review External record reviewed: Inpatient record and Outpatient record Prescription Management I considered prescription management with: Other Discharge Plan Discharge Clinical Impression: Pressure ulcer Qualifiers: Pressure injury location: buttock Pressure injury stage: stage 1 Laterality: unspecified laterality Qualified Code(s): L89.301 - Pressure ulcer of unspecified buttock, stage 1 Patient Disposition: Home, Self-Care Instructions: Jackson Catheter Care, Pressure Injury (ED) Additional Instructions: VNA : change dressing every 72 hours or sooner if it is soiled. apply barrier cream twice a day at home use wash to cleanse yourself empty bag every 4 hours return for fevers, vomiting, worsening pain or any other concerns Prescriptions: New (DME) Mepilex 4 X 4 bandage See Rx Instructions .Route Qty: 5 2RF Rx Instructions: As directed (DME) [facility]assine [facility] See Rx Instructions .Route Qty: 1 0RF Rx Instructions: As directed No Action isosorbide dinitrate 5 mg tablet 5 mg PO BID Qty: 180 1RF Protocol: Hold for SBP< HOLD for SBP < : 90 amiodarone 200 mg tablet 200 mg PO DAILY Qty: 90 1RF bumetanide 2 mg tablet 2 mg PO BID Qty: 180 0RF Rx Instructions: Take one capsule twice daily to prevent fluid overload. ipratropium-albuterol 0.5 mg-3 mg(2.5 mg base)/3 mL solution for nebulization 3 ml inhalation Q6H PRN (Reason: for wheezing) Qty: 90 1RF levofloxacin 500 mg tablet 500 mg PO DAILY 5 Days Qty: 5 0RF atorvastatin 40 mg tablet 40 mg PO BEDTIME Qty: 90 1RF clopidogrel 75 mg tablet 75 mg PO DAILY Qty: 90 1RF famotidine 20 mg tablet 20 mg PO DAILY Qty: 90 1RF carvedilol 6.25 mg tablet 6.25 mg PO BID Qty: 180 1RF Eliquis 5 mg Tablet 5 mg PO BID Qty: 20 0RF melatonin 10 mg tablet 5 mg PO BEDTIME sulfamethoxazole-trimethoprim [Bactrim] 400-80 mg tablet 1 tab PO DAILY 5 Days Qty: 5 0RF hydrocodone-acetaminophen 5-300 mg tablet 1 tab PO Q8H PRN (Reason: pain (scale score 4-6)) 7 Days Qty: 14 0RF Rx Instructions: Partial Fill upon patient request. hydrocodone-acetaminophen 5-325 mg tablet 1 tab PO Q4H PRN (Reason: pain) 7 Days Qty: 14 0RF Rx Instructions: Partial Fill upon patient request. hydralazine 50 mg tablet 50 mg PO BID Print Language: Azeri
--- OUTSIDE RECORDS SUMMARY | 2025-05-04 14:30 | XMS_ITS | Clinical Summary ---
Author Organization [facility] Facility Address [address] [place] [address], [place] [address] Care Team Providers Care Digital Marketing Apprentice Name Role Phone Unavailable Primary Care Provider [...] patient's age to complete this topic Insurance [facility]
--- OUTSIDE RECORDS SUMMARY | 2025-05-04 14:30 | XMS_ITS | Patient Health Record ---
Author Organization [facility] Matilde jes MilliganPancho Address [address] [place] [address] Care Team Providers Care Cell Pourer Name Role Phone Jose Manuel Escalera MD Primary Care Provider Brandon Stokes Unavailable [phone] Allergies No Known Allergies Reason For Referral [...] atherosclerosis of arteries of lower limbs (disorder) ([id number] ) Atherosclerosis of [place] artery of both lower extremities, with unspecified presence of clinical manifestation (I70.203) Active confirmed Q7(A), Q8(2B), Q9(1B,2 C) Vital Signs Blood pressure diastolic 80 mm Hg 10/15/2024 Height 5 ft 10 in in 10/15/2024 Blood pressure systolic 117 mm Hg 10/15/2024 Weight 285 lbs 10/15/2024 BMI 40.89 kg/m2 10/15/2024 Procedures Procedure Date Ordered Date Performed Result Body Sit e 61498-UCHWMGN NAIL, 6 OR MORE 10/15/2024 N/A 68218-LVTB SKIN LESIONS, OVER 4 10/15/2024 N/A Encounters Encounter Location Date Provider Diagnosis [facility] [address] [address] 10/15/2024 Brandon Lozano Atherosclerosis of [place] artery of both lower extremities, with unspecified presence of clinical manifestation I70.203 ; Tinea unguium B35.1 ; Pain in right toe(s) M79.674 and Pain in left toe(s) M79.[address] [facility] [address] 02/11/2025 Brandon Lozano Assessments Encounter Date Diagnosis (ICD Code) Assessment Notes Treatment Notes Treatment Clinical Notes Section Notes 10/15/2024 Atherosclerosis of [place] artery of both lower extremities, with unspecified presence of clinical manifestation (ICD-10 - I70.203) Q7(A), Q8(2B), Q9(1B,2C) 10/15/2024 Tinea unguium (ICD-10 - B35.1) 10/15/2024 Pain in right toe(s) (ICD-10 - M79.674) 10/15/2024 Pain in left toe(s) (ICD-10 - M79.675) Plan Of Treatment Pending Test Test Name Order Date 57555-[id number] NAIL, 6 OR MORE 02/13/2021 77278-CWBCSIS NAIL, 6 OR MORE 05/29/2021 86556-HNBSGXZ NAIL, 6 OR MORE 12/04/2021 31973-YJNENBI NAIL, 6 OR MORE 04/05/2022 66875-RKWGLLQ NAIL, 6 OR MORE 11/25/2023 85398-JSLNOAC NAIL, 6 OR MORE 10/15/2024 15544-Mwtsiqif Plate 11/25/2023 94856-Fycyqsho Plate 04/05/2022 86109-Jjnrwski Plate 05/29/2021 89109-RRYX SKIN LESIONS, OVER 4 05/29/20 42304-IFJV SKIN LESIONS, OVER 4 04/05/20 71905-FOYF SKIN LESIONS, OVER 4 12/05/19 06696-SZGW SKIN LESIONS, OVER 4 11/25/19 37633-VPCE SKIN LESIONS, OVER 10/15/19 53836-UMXD SKIN LESIONS, 2 TO 4 02/14/20 21 Insurance Providers Payer Name Payer Address Payer Phone Subscriber Number Group Number Insured Name Patient Relationship to Insured Coverage Start Date Coverage End Date [employer]vantage [address] [place] [address] [phone] [id number] Aaron Valverde Self - patient is the insured Medical (General) History Medical History History ICD Code Back,Hip,and Knee pain Dementia High blood pressure Stroke Measles Mumps Chicken pox CAD Heart attack - March 25, 2024 Surgical History Surgery Date(Month/Year) Hospitalization History Reason Date(Month/Year[place] [facility] [place]
[2025-05-04 14:42] VITALS: BP 146/77; PULSE 69; RESP 18; O2SAT 94
--- NOTE | 2025-05-04 15:39 | MHC.CM.ED ---
Addendum entered by Vanessa Mckeon 05/05/25 08:39: [facility] is only agency able to accept patient. Original Note: Received case management consult from Dr Orourke. Patient was seen in ER last week with hydrocele. Per Dr Orourke, pateint and looking for more help. Met with patient and , Isha. Both reside together. Isha has noticed since hydrocele patient has been weaker. Both feel home therapy would be appropriate. PCP is Dr Umanzor. Patient has been active with [facility] and [facility] in the past. Both agreeable to [facility] referral being broadcasted. Dr Orourke aware [facility] will need wound orders. Continue to monitor for d/c needs.
[2025-05-04 16:28] VITALS: BP 146/77; PULSE 69; RESP 18; TEMP -17.7; TEMP 0; O2SAT 94
== END 2025-05-04 16:29 | disposition home or self-care (01) ==
PROVIDERS: Emergency Provider Emergency Medicine; PCP Internal Medicine
DX: L89.301 Pressure ulcer of unspecified buttock, stage 1 (principal); N43.3 Hydrocele, unspecified; I25.10 Atherosclerotic heart disease of native coronary artery without angina pectoris; R26.2 Difficulty in walking, not elsewhere classified; I10 Essential (primary) hypertension; Z79.899 Other long term (current) drug therapy; Z87.891 Personal history of nicotine dependence
CPT/HCPCS: 97162; 99284

== ENCOUNTER → 2025-05-13 08:36 | Outpatient (BNVA) | payer MEDICARE, SELFPAY | PROVIDERS: Visit Provider Urology | DX: Z46.6 Encounter for fitting and adjustment of urinary device (principal); N43.3 Hydrocele, unspecified | CPT/HCPCS: 51700 ==

== ENCOUNTER → 2025-05-16 23:59 | Outpatient (BNV) | payer MEDICARE, SELFPAY | PROVIDERS: PCP Internal Medicine; Visit Provider Internal Medicine | DX: I13.0 Hypertensive heart and chronic kidney disease with heart failure and stage 1 through stage 4 chronic kidney disease, or unspecified chronic kidney disease (principal); I50.9 Heart failure, unspecified; I73.9 Peripheral vascular disease, unspecified; N18.32 Chronic kidney disease, stage 3b | CPT/HCPCS: G0180 ==

== ENCOUNTER 2025-05-31 10:35 | Outpatient (AMB) | payer MEDICARE, SELFPAY ==
--- OUTSIDE RECORDS SUMMARY | 2024-02-24 05:00 | XMS_ITS ---
Author Organization [facility] Address [address] [place] [address] Care Team Providers Care Teaching Specialists Name Role Phone Jose Manuel Escalera MD Primary Care Provider UnavailBrandon Davila Unavailable [phone] Encounters Encounter Location Date Provider Diagnosis [address] [address] 02/24/2024 Brandon Lozano Plan Of Treatment No Information Progress Notes * Aaron VALVERDEDOB:1950 (75 yo M)Acc No.[id number]:02/24/2024 Progress Note Patient: Aaron HYMAN Provider: Salinas Lozano DPM :1950 A ge:73 Y S ex:Male Date:02/24/2024 Address:[address] [place], [place] [id number] Pcp:Jose Manuel Escalera MD Subjective: * Chief Complaints: * * Medical History: Objective: * Vitals: Assessment: Plan: * Treatment: * Images: * The named appointment provid er may or may not be the originator of this progress note, and it is not deemed complete until electronically signed by the appointment provider. Sign off status: Pending * Provider: Salinas Lozano DPM Date: 02/24/2024 Generated for Laura moser/Scarlett/Nahomyransmitting on: 05/31/2025 12:27 PM EDT
--- OUTSIDE RECORDS SUMMARY | 2025-02-11 09:00 | XMS_ITS ---
Author Organization [facility] Address [address] [place] [address] Care Team Providers Care Director Wholesale Name Role Phone Jose Manuel Escalera MD Primary Care Provider Brandon Stokes Unavailable [phone] Medications Medication SIG (Take, Route, Frequency, Duration) [...] Active Encounters Encounter Location Date Provider Diagnosis [facility] [address] [place] [address] 02/11/2025 Brandon Lozano Plan Of Treatment No Information Progress Notes * Aaron VALVERDEDOB:1950 (75 yo M)Acc No.[id number]:02/11/2025 Progress Note Patient: Araon HYMAN Provider: Salinas Lozano DPM :1950 A ge:74 Y S ex:Male Date:02/11/2025 Address:[address] [place] [address] [address] [id number] Pcp:Jose Manuel Escalera MD Subjective: * Chief [...] 02/11/2025 Generated for Laura moser/Scarlett/Yovana on: 0 05/31/2025 12:27 PM EDT
--- NOTE | 2025-05-31 10:37 | A.OFFPC_ITS ---
Vital Signs 05/31/25 10:45 Height 5 ft 9 in Weight 281 lb BMI 41.5 BP 110/62 Blood Pressure Location Lt brachial Position Sitting Respiration 18 Pulse 75 Pulse Source Pulse Oximeter Temp 97.5 F Temp Source Temporal Artery Scan Pulse Oximetry (%) 95 Oxygen Delivery Method Room Air Intake Visit Reasons: Routine Portfolio Architect Required: No Accompanied by: Self / Same As Patient Allergies No Known Allergies (No Known Allergies*) Allergy (Verified 05/31/25 10:38) Tobacco use date assessed: 02/07/25 Fall risk assessment: No Falls in past year Last assessed Fall Risk: 05/31/25 Dental Screening Dental Screen Date: 02/07/25 HPI HPI Comments History of Present Illness Details The patient is a 75-year-old male presenting for follow-up of existing chronic medical conditions, primarily congestive heart failure (CHF). CHF history includes monitoring of weight fluctuations as indicators of fluid retention, with a stable weight of 281 pounds and minor daily fluctuations. There is a history of increased urination. Vital signs have shown general stability. His COPD, attributed to nearly 60 years of smoking, was diagnosed years ago, and the patient ceased smoking following a heart attack in 2023. Atrial fibrillation has been managed with medications, taking amiodarone and Eliquis. The patient experiences hypertension controlled with multiple antihypertensive medications. There is no mention of active symptoms of GERD but he continues on therapy. Past health concerns include kidney disease with regular nephrology follow-ups and anemia of unspecified severity. The patient is under the care of a data center consultant within the same building and is scheduled for an upcoming appointment. Medical History: - Chronic Obstructive Pulmonary Disease, related to extensive history of smoking - Congestive Heart Failure with regular monitoring - Hypertension with pharmacological shannon gement - Atrial Fibrillation managed with amiod arone and anticoagulation - Chronic Kidney Disease with nephrology follow-up - Hyperlipidemia under treatment with at orvastatin - Anemia, unspecified Surgical History: - History of a heart attack on March 25, 2024 - Hydrocelle repair Medications: - Bumetanide, 2 mg twice daily for fluid management in CHF - Amiodarone for Atrial Fibrillation - Eliquis for atrial fibrillation - Atorvastatin for Hyperlipidemia - Coreg 6.25 mg twice daily for Hyperten sheila - Plavix - Hydralazine 50 mg twice daily for Hype rtension - Famotidine for Gastroesophageal Reflux Disease - Ipratropium inhaler as needed for COPD - Isosorbide dinitrate 5 mg twice daily Social: - Former smoker, ceased after a heart at tack in 2023 - Resides with someone who is his DPOA - Physical Therapy visits twice weekly f or mobility improvement COUNTS INCLUDE [facility] BEDS AT [facility] Medical History Pressure injury CKD stage 3b, GFR 30-44 ml/min COPD (chronic obstructive pulmonary disease) Morbid obesity with BMI of 40.0-44.9, adult Biventricular ICD (implantable cardioverter-defibrillator) in place Paroxysmal atrial flutter Coronary artery disease Ischemic cardiomyopathy Atrial flutter History of cardiac arrest Complete heart block Ventilator associated pneumonia STEMI (ST elevation myocardial infarction) Hypertension Hx of senior care use of blood thinners Surgical History S/P ICD (internal cardiac defibrillator) procedure (04/2024) Family History Mother No problems noted. Father No problems noted. Social History Household Members: Spouse Household Members Other:: Housing: Apartment Are you a primary customer care assistant to a significant other at home: No Do you presently have visiting nurse or other home services: No Patient Tobacco Use Status: Former Tobacco user Tobacco use type: Cigarette e-Cigarette/Vaping Use: Never Used Second Hand Smoke Exposure: No Advance Directives Date on File: 09/12/24 service: Yes Current occupational status: retired Cognitive needs: No Hearing needs: No Vision needs: Yes (reading glasses) Questionnaire Thrive Questionnaire Date Thrive assessed: 02/07/25 AUDIT C Alcohol Use Questionnaire (AUDIT-C) 1. How often do you have a drink containing alcohol?: Never 3. How often do you have six or more drinks on one occasion?: Never Total Score: 0 HUE-7 AMB Questionnaire HUE-7 Date HUE - 7 assessed: 02/07/25 Source: Developed by Drs. Stevenson Springer, Micaela Carlin, Delvin Puente and colleagues, with an educational farooq from [employer]. Review of Systems Const Details: - Respiratory: Reports increased urination - Cardiovascular: Denies significant shortness of breath, reports managed weight and fluid retention - General: Denies new complaints or issues All systems reviewed & are unremarkable except as noted in HPI and below Physical exam (Primary Care) Vital Signs: Last Vital Signs Temp 97.5 F 05/31/25 10:45 Pulse 75 05/31/25 10:45 Resp 18 05/31/25 10:45 BP 110/62 05/31/25 10:45 Pulse Ox 95 05/31/25 10:45 Oxygen Delivery Method Room Air 05/31/25 10:45 BMI result Body Mass Index 41.5 Tobacco/Smoking Status: Tobacco use Status Tobacco use date assessed 02/07/25 05/31/25 10:40 Patient Tobacco Use Status Former Tobacco user 05/31/25 10:40 Tobacco use type Cigarette 05/31/25 10:40 e-Cigarette/Vaping Use Never Used 05/31/25 10:40 Thrive Assessment: Date of Thrive Assessment Date Thrive assessed 02/07/25 05/31/25 10:40 Const Other: General: +Alert and oriented, Well nourished, No acute distress. Eye: Pupils are equal, round and reactive to light, Intact accommodation, Extraocular movements are intact, Normal conjunctiva, Vision unchanged. HENT: Normocephalic, Atraumatic, Tympanic membranes are clear, Normal hearing, Oral mucosa is moist, No pharyngeal erythema, Ear canals patent. Respiratory: Lungs CTA bilaterally, No wheeze, Respirations are non-labored. Cardiovascular: Regular rate, Regular rhythm, S1 auscultated, S2 auscultated, No murmur, Good pulses equal in all extremities, Normal peripheral perfusion, No edema. Gastrointestinal: Soft, Non-tender, Non-distended, Normal bowel sounds, No organomegaly. Musculoskeletal: Normal range of motion, Normal strength, No tenderness, No swelling, No deformity, Normal gait. Integumentary: Warm, Dry, Vaiva Vo, Intact. Neurologic: Alert, Oriented, Normal sensory, Normal motor function, No focal defects, Cranial Nerves II-XII are grossly intact, Normal deep tendon reflexes. Psychiatric: Cooperative, Appropriate mood & affect, Normal judgment. Coding Level of Care Code Est Pt Level 4 (96390) Complex EM visit Add On G2211 Diagnoses Chronic obstructive pulmonary disease, unspecified COPD type J44.9 COPD type: unspecified COPD Hypertension, unspecified type I10 Hypertension type: unspecified Paroxysmal atrial flutter I48.92 Biventricular ICD (implantable cardioverter-defibrillator) in place Z95.810 CKD stage 3b, GFR 30-44 ml/min N18.32 Chronic systolic congestive heart failure I50.22 Heart failure chronicity: chronic Heart failure type: systolic Screening for lung cancer Z12.2 Assessment & Plan Assessment & Plan (1) COPD (chronic obstructive pulmonary disease): Comment: - Continue use of DuoNebs - No hospitalizations or wheezing Code(s): J44.9 - Chronic obstructive pulmonary disease, unspecified Category: Medical Qualifiers: COPD type: unspecified COPD Qualified Code(s): J44.9 - Chronic obstruc tive pulmonary disease, unspecified (2) Hypertension: Comment: - Maintain current antihypertensive therapy - Pressures well controlled in clinic today - Reinforced need of good pressure control and medication adherence Code(s): I10 - Essential (primary) hypertension Category: Medical Qualifiers: Hypertension type: unspecified Qualified Code(s): I10 - Essential (primary) hypertension (3) Paroxysmal atrial flutter: Comment: - Continue amiodarone and Eliquis - HR well controlled today - Prior EKG reviewed and showed atrial sensed and V Paced Code(s): I48.92 - Unspecified atrial flutter Category: Medical (4) Biventricular ICD (implantable cardioverter-defibrillator) in place: Comment: [facility] Bi V ICD in place. Functioning normally on interrogation last visit with cardiology. Continue follow up with cardiology History of Sudden Cardiac Code(s): Z95.810 - Presence of automatic (implantable) cardiac defibrillator Category: Medical (5) CKD stage 3b, GFR 30-44 ml/min: Comment: Secondary to cardio renal syndrome with creatinine baseline appearing to be around 1.7 - Follows with Cardiology Code(s): N18.32 - Chronic kidney disease, stage 3b Category: Medical (6) CHF (congestive heart failure): Comment: Systolic heart failure with an EF of 30-35% per echo obtained in August 2024 Follows with Cardiology and currently on Bumex 2 mg daily, Coreg 6.25 mg, isosorbide dinitrate, hydralazine 50 mg. On evaluation records, patient would benefit from Jardiance (SGLT2) given his heart failure and CKD. We will defer that management to Cardiology Code(s): I50.9 - Heart failure, unspecified Category: Medical Qualifiers: Heart failure chronicity: chronic Heart failure type: systolic Qualified Code(s): I50.22 - Chronic systolic (congestive) heart failure (7) Screening for lung cancer: Comment: Extensive smoking history of over 50 pack years therefore we will obtain lung cancer screening Code(s): Z12.2 - Encounter for screening for malignant neoplasm of respiratory organs Category: Medical Plan I discussed with the patient the importance of regular monitoring and adherence to medications for heart failure management and emphasized the need for daily weight checks. I briefly explained COPD management with inhalers and considered providing an additional inhaler for exacerbations. Recommendations for lung cancer screening via low-dose CT and a repeated emphasis on the necessity of a colonoscopy were presented. The patient was assured that all aspects of care remain stable with plans for a follow-up appointment in six months. Consent for current management and monitoring strategies was confirmed, and the patient seemed reassured by the discussion. Orders: Orders CT lung screening Today Z12.2 - Encounter for screening for malignant neoplasm of respiratory organs Referrals Open Access Screening Colonoscopy Referral Z12.11 - Encounter for screening for malignant neoplasm of colon Patient Instructions: - Continue monitoring weight daily. - Keep using inhalers as prescribed. - Follow-up with data center consultant as scheduled. - Consider getting colon cancer screening. - Report any significant changes in health immediately.
[2025-05-31 10:45] VITALS: BP 110/62; PULSE 75; RESP 18; TEMP 36.4; O2SAT 95; BMI 41.5
--- OUTSIDE RECORDS SUMMARY | 2025-05-31 12:27 | XMS_ITS | Patient Health Record ---
Author Organization [facility] Address [address] [place] [address] Care Team Providers Care Head Nurse Name Role Phone Jose Manuel Escalera MD Primary Care Provider Brandon Stokes Unavailable [phone] Allergies No Known Allergies Reason For Referral [...] atherosclerosis of arteries of lower limbs (disorder) ([id number] ) Atherosclerosis of [place] artery of both lower extremities, with unspecified presence of clinical manifestation (I70.203) Active confirmed Q7(A), Q8(2B), Q9(1B,2 C) Vital Signs Blood pressure diastolic 80 mm Hg 10/15/2024 Height 5 ft 10 in in 10/15/2024 Blood pressure systolic 117 mm Hg 10/15/2024 Weight 285 lbs 10/15/2024 BMI 40.89 kg/m2 10/15/2024 Procedures Procedure Date Ordered Date Performed Result Body Sit e 89856-JBARKTY NAIL, 6 OR MORE 10/15/2024 N/A 84264-ACNV SKIN LESIONS, OVER 4 10/15/2024 N/A Encounters Encounter Location Date Provider Diagnosis [facility] [address] [address] 10/15/2024 Brandon Lozano Atherosclerosis of [place] artery of both lower extremities, with unspecified presence of clinical manifestation I70.203 ; Tinea unguium B35.1 ; Pain in right toe(s) M79.674 and Pain in left toe(s) M79.[address] [facility] [address] 02/11/2025 Brandon Lozano Assessments Encounter Date Diagnosis (ICD Code) Assessment Notes Treatment Notes Treatment Clinical Notes Section Notes 10/15/2024 Atherosclerosis of [place] artery of both lower extremities, with unspecified presence of clinical manifestation (ICD-10 - I70.203) Q7(A), Q8(2B), Q9(1B,2C) 10/15/2024 Tinea unguium (ICD-10 - B35.1) 10/15/2024 Pain in right toe(s) (ICD-10 - M79.674) 10/15/2024 Pain in left toe(s) (ICD-10 - M79.675) Plan Of Treatment Pending Test Test Name Order Date [id number] NAIL, 6 OR MORE 02/13/2021 45550-HUQTKCQ NAIL, 6 OR MORE 05/29/2021 20663-EYFVCAD NAIL, 6 OR MORE 12/04/2021 00731-MZGQFBW NAIL, 6 OR MORE 04/05/2022 74999-RBKQWLY NAIL, 6 OR MORE 11/25/2023 81314-IPYFDOD NAIL, 6 OR MORE 10/15/2024 65723-Ouzrajvz Plate 11/25/2023 34777-Bkjgfwlt Plate 04/05/2022 49350-Tjaxcjee Plate 05/29/2021 28482-FXLR SKIN LESIONS, OVER 4 05/29/20 09253-BARQ SKIN LESIONS, OVER 4 04/05/20 71520-ZWMS SKIN LESIONS, OVER 4 12/05/19 94188-YUCF SKIN LESIONS, OVER 4 11/25/19 95811-CLHP SKIN LESIONS, OVER 10/15/19 82087-ZTSZ SKIN LESIONS, 2 TO 4 02/14/20 21 Insurance Providers Payer Name Payer Address Payer Phone Subscriber Number Group Number Insured Name Patient Relationship to Insured Coverage Start Date Coverage End Date [employer] [place] [employer]vantage [address] [place] [address] [phone] [id number] Aaron Valverde Self - patient is the insured Medical (General) History Medical History History ICD Code Back,Hip,and Knee pain Dementia High blood pressure Stroke Measles Mumps Chicken pox CAD Heart attack - March 25, 2024 Surgical History Surgery Date(Month/Year) Hospitalization History Reason Date(Month/Year) [facility] [place]
--- OUTSIDE RECORDS SUMMARY | 2025-05-31 12:27 | XMS_ITS | Clinical Summary ---
Author Organization [facility] Address [address] [place] [address], [place] [address] Care Team Providers Care Fruit Buyer Name Role Phone Unavailable Primary Care Provider [...] patient's age to complete this topic Insurance [facility]
== END 2025-05-31 11:13 | disposition home or self-care (01) ==
LOC: HO.HMCHD 10:36
PROVIDERS: PCP Student in an Organized Health Care Education/Training Program; Visit Provider Student in an Organized Health Care Education/Training Program
DX: I13.0 Hypertensive heart and chronic kidney disease with heart failure and stage 1 through stage 4 chronic kidney disease, or unspecified chronic kidney disease (principal); J44.9 Chronic obstructive pulmonary disease, unspecified; N18.32 Chronic kidney disease, stage 3b; I50.22 Chronic systolic (congestive) heart failure; I48.92 Unspecified atrial flutter; Z95.810 Presence of automatic (implantable) cardiac defibrillator; Z12.2 Encounter for screening for malignant neoplasm of respiratory organs

== ENCOUNTER → 2025-05-31 10:35 | Outpatient (BNVA) | payer MEDICARE, SELFPAY | PROVIDERS: PCP Internal Medicine; Visit Provider Student in an Organized Health Care Education/Training Program | DX: J44.9 Chronic obstructive pulmonary disease, unspecified (principal); I13.0 Hypertensive heart and chronic kidney disease with heart failure and stage 1 through stage 4 chronic kidney disease, or unspecified chronic kidney disease; N18.32 Chronic kidney disease, stage 3b; I50.22 Chronic systolic (congestive) heart failure; I48.92 Unspecified atrial flutter; Z95.810 Presence of automatic (implantable) cardiac defibrillator; Z79.01 Long term (current) use of anticoagulants; Z79.899 Other long term (current) drug therapy | CPT/HCPCS: 99212 ==

== ENCOUNTER → 2025-06-06 23:59 | Outpatient (BNV) | payer MEDICARE, SELFPAY | PROVIDERS: PCP Internal Medicine; Visit Provider Internal Medicine | DX: I13.0 Hypertensive heart and chronic kidney disease with heart failure and stage 1 through stage 4 chronic kidney disease, or unspecified chronic kidney disease (principal); L89.301 Pressure ulcer of unspecified buttock, stage 1; I50.9 Heart failure, unspecified; N18.32 Chronic kidney disease, stage 3b | CPT/HCPCS: G0180 ==

== ENCOUNTER 2025-06-07 15:04 | Outpatient (AMB) | payer MEDICARE, SELFPAY ==
--- OUTSIDE RECORDS SUMMARY | 2024-02-24 05:00 | XMS_ITS ---
Author Organization [facility] Address [address] [place] [address] Care Team Providers Care Mobile Ui/Ux Designer Name Role Phone Jose Manuel Escalera MD Primary Care Provider UnavailBrandon Davila Unavailable [phone] Encounters Encounter Location Date Provider Diagnosis [address] [address] 02/24/2024 Brandon Lozano Plan Of Treatment No Information Progress Notes * Aaron VALVERDEDOB:1950 (75 yo M)Acc No.[id number]:02/24/2024 Progress Note Patient: Aaron HYMAN Provider: Salinas Lozano DPM :1950 A ge:73 Y S ex:Male Date:02/24/2024 Address:[address] [place], [place] [id number] Pcp:Jose Manuel Escalera MD Subjective: * Chief [...] Lozano DPM Date: 02/24/2024 Generated for Laura moser/Scarlett/eTransmitting on: 06/07/2025 06:38 PM EDT
--- OUTSIDE RECORDS SUMMARY | 2025-02-11 09:00 | XMS_ITS ---
Author Organization [facility] Address [address] [place] [address] Care Team Providers Care Vacuum Closing Machine Operator Name Role Phone Jose Manuel Escalera MD Primary Care Provider Brandon Stokes Unavailable [phone] Medications Medication SIG (Take, Route, Frequency, Duration) [...] Active Encounters Encounter Location Date Provider Diagnosis [facility] [address] [place] [address] 02/11/2025 Brandon Lozano Plan Of Treatment No Information Progress Notes * Aaron VALVERDEDOB:1950 (75 yo M)Acc No.[id number]:02/11/2025 Progress Note Patient: Aaron HYMAN Provider: Salinas Lozano DPM :1950 A ge:74 Y S ex:Male Date:02/11/2025 Address:[address] [place] [address] [id number] Pcp:Jose Manuel Escalera MD Subjective: * Chief [...] DPM Date: 0 02/11/2025 Generated for Laura moser/Scarlett/Yovana on: 0 06/07/2025 06:38 PM EDT
--- NOTE | 2025-06-07 15:10 | A.OFFVIS_ITS ---
Intake Visit Reasons: BI hydrocelectomy f/u Intake Note: Patient is present for BILATERAL HYDROCELECTOMY Urology Medication:NONE Antibiotic Allergy:NONE Blood Thinner:APIXABAN, CLOPIDOGREL Pre Fabricator Required: No Accompanied by: Self / Same As Patient Allergies No Known Allergies (No Known Allergies*) Allergy (Verified 06/07/25 15:10) HPI Comments Details: Noah is a pleasant male. He is a patient of Dr. Quigley. He is seen for the following urologic conditions - bilateral hydroceles Well-healed post bilateral hydrocelectomy Hydroceles - Bilateral complex hydroceles identified via ultrasound. - History includes COPD, CHF, and pacemaker insertion post-myocardial infarction. - Prior CHF exacerbation led to generalized edema; currently improved except for residual scrotal and extremity edema. - On anticoagulation with Eliquis due to cardiac history; edema reduced by diuretics previously. 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 Father No problems noted. Social History Household Members: Spouse Household Members Other:: Housing: Apartment Are you a primary coronary care unit nurse to a significant other at home: No Do you presently have visiting nurse or other home services: No Patient Tobacco Use Status: Former Tobacco user Tobacco use type: Cigarette e-Cigarette/Vaping Use: Never Used Second Hand Smoke Exposure: No Advance Directives Date on File: 09/12/24 service: Yes Current occupational status: retired Cognitive needs: No Hearing needs: No Vision needs: Yes (reading glasses) Review of Systems Const Denies chills and Denies fever(s) Card Reports no additional complaints and Denies syncope Resp Denies cough GI Denies abdominal pain and Denies heartburn Reports as per HPI and Denies change in libido Neuro Denies syncope Psych Denies change in libido Endo Denies change in libido Physical Exam Const General: cooperative, healthy appearing, comfortable and no acute distress Orientation/consciousness: patient oriented x3 HEENT Face and sinus: Yes normal facial exam Mouth: moist mucous membranes Neck Neck: Yes normal visual inspection, Yes full ROM and Yes trachea midline Chest Chest palpation & inspection: normal inspection of the chest Resp Effort & Inspection: normal respiratory effort, able to speak in complete sentences and no respiratory distress GI Inspection: Yes normal to inspection Back/Spine/Pelvis Cervical Spine: normal cervical lordosis Thoracic/Lumbar Spine: thoracic and lumbar spine normal to inspection Skin General skin exam: no rashes or lesions noted Neuro General: patient oriented x3, gait normal, tone normal and moves all extremities Extrem General: Yes normal to inspection and Yes capillary refill normal Assessment & Plan Assessment & Plan (1) Hydrocele: Code(s): N43.3 - Hydrocele, unspecified Category: Medical Plan Six-month follow-up Patient Instructions: This note is constructed using voice recognition software. While every effort has been made to ensure accuracy wallpaper consultant errors may have been included. Imaging studies, laboratory and physical exam results were discussed and reviewed in detail. No major barriers to patient understanding were identified. An opportunity to ask questions regarding the treatment plan was provided. All questions were answered. The patient expressed understanding and agreement with the above treatment plan. The patient is aware they should contact our office by phone for worsening of their current condition or the appearance of new urologic symptoms. Compliance is encouraged with any medications and followup testing that is ordered. It is a privilege to participate in the urologic care of your patient. If you have any questions or concerns regarding treatment for the above conditions, or other urologic issues, please do not hesitate to contact me. The office telephone contact is [phone]. Sincerely, Dr Kojo Girard MD, [facility] - Urology Compassionate Specialist Care for the Genitourinary System Coding Level of Care Code Est Pt Level 3 (51531) Diagnoses Hydrocele N43.3
--- OUTSIDE RECORDS SUMMARY | 2025-06-07 18:38 | XMS_ITS | Clinical Summary ---
Author Organization [facility] Facility Address [address] [place] [address], [place] [address] Care Team Providers Care Clean Room Assembler Name Role Phone Unavailable Primary Care Provider [...] age to complete this topic Insurance [facility]
--- OUTSIDE RECORDS SUMMARY | 2025-06-07 18:38 | XMS_ITS | Patient Health Record ---
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 Name Role Phone Jose Manuel Escalera MD Primary Care Provider Brandon Stokes Unavailable [phone] Allergies No Known Allergies Reason For Referral [...] atherosclerosis of arteries of lower limbs (disorder) ([id number] ) Atherosclerosis of [place] artery of both lower extremities, with unspecified presence of clinical manifestation (I70.203) Active confirmed Q7(A), Q8(2B), Q9(1B,2 C) Vital Signs Blood pressure diastolic 80 mm Hg 10/15/2024 Height 5 ft 10 in in 10/15/2024 Blood pressure systolic 117 mm Hg 10/15/2024 Weight 285 lbs 10/15/2024 BMI 40.89 kg/m2 10/15/2024 Procedures Procedure Date Ordered Date Performed Result Body Sit e 23053-SCKCBEV NAIL, 6 OR MORE 10/15/2024 N/A 79897-EEKF SKIN LESIONS, OVER 4 10/15/2024 N/A Encounters Encounter Location Date Provider Diagnosis [facility] [address] [address] 10/15/2024 Brandon Lozano Atherosclerosis of [place] artery of both lower extremities, with unspecified presence of clinical manifestation I70.203 ; Tinea unguium B35.1 ; Pain in right toe(s) M79.674 and Pain in left toe(s) M79.[address] [facility] [address] 02/11/2025 Brandon Lozano Assessments Encounter Date Diagnosis (ICD Code) Assessment Notes Treatment Notes Treatment Clinical Notes Section Notes 10/15/2024 Atherosclerosis of [place] artery of both lower extremities, with unspecified presence of clinical manifestation (ICD-10 - I70.203) Q7(A), Q8(2B), Q9(1B,2C) 10/15/2024 Tinea unguium (ICD-10 - B35.1) 10/15/2024 Pain in right toe(s) (ICD-10 - M79.674) 10/15/2024 Pain in left toe(s) (ICD-10 - M79.675) Plan Of Treatment Pending Test Test Name Order Date 34470-RMNUXTM NAIL, 6 OR MORE 02/13/2021 85868-KARYHVR NAIL, 6 OR MORE 05/29/2021 86645-WMVABHU NAIL, 6 OR MORE 12/04/2021 10715-TDFRMRV NAIL, 6 OR MORE 04/05/2022 03724-EFDQATI NAIL, 6 OR MORE 11/25/2023 14366-EPINZQJ NAIL, 6 OR MORE 10/15/2024 99264-Aaviyevt Plate 11/25/2023 97880-Fkuqdrhs Plate 04/05/2022 18597-Pkporleu Plate 05/29/2021 26507-IQXC SKIN LESIONS, OVER 4 05/29/20 52749-IXIC SKIN LESIONS, OVER 4 04/05/20 28638-ZKEY SKIN LESIONS, OVER 4 12/05/19 37936-FUED SKIN LESIONS, OVER 4 11/25/19 68448-VTWZ SKIN LESIONS, OVER 10/15/19 81384-XHGC SKIN LESIONS, 2 TO 4 02/14/20 21 Insurance Providers Payer Name Payer Address Payer Phone Subscriber Number Group Number Insured Name Patient Relationship to Insured Coverage Start Date Coverage End Date [employer]vantage [address] [place] [address] [id number] Aaron Valverde Self - patient is the insured Medical (General) History Medical History History ICD Code Back,Hip,and Knee pain Dementia High blood pressure Stroke Measles Mumps Chicken pox CAD Heart attack - March 25, 2024 Surgical History Surgery Date(Month/Year) Hospitalization History Reason Date(Month/Year) [facility] [place]
== END 2025-06-07 15:29 | disposition home or self-care (01) ==
LOC: HO.HUSH 15:05
PROVIDERS: PCP Internal Medicine; Visit Provider Urology
DX: N43.3 Hydrocele, unspecified (principal)
CPT/HCPCS: 99024

== ENCOUNTER → 2025-06-07 15:04 | Outpatient (BNVA) | payer MEDICARE, SELFPAY | PROVIDERS: PCP Internal Medicine; Visit Provider Urology | DX: N43.3 Hydrocele, unspecified (principal) | CPT/HCPCS: 99212 ==

== ENCOUNTER 2025-06-27 12:32 | Outpatient (AMB) | payer MEDICARE, SELFPAY ==
--- OUTSIDE RECORDS SUMMARY | 2024-02-24 05:00 | XMS_ITS ---
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 Name Role Phone Jose Manuel Escalera MD Primary Care Provider Unavaila Brandon Tse Unavailable [phone] Encounters Encounter Location Date Provider Diagnosis [address] [address] 02/24/2024 Brandon Lozano Plan Of Treatment No Information Progress Notes * Aaron VALVERDEDOB:1950 (75 yo M)Acc No.[id number]:02/24/2024 Progress Note Patient: Aaron HYMAN Provider: Salinas Lozano DPM :1950 A ge:73 Y S ex:Male Date:02/24/2024 Address:[address] [place], [place] [id number] Pcp:Jose Manuel Escalera MD Subjective: * Chief Complaints: * * Medical History: Objective: * Vitals: Assessment: Plan: * Treatment: * Images: * The named appointment provid er may or may not be the originator of this progress note, and it is not deemed complete until electronically signed by the appointment provider. Sign off status: Pending * Provider: Salinas Lozano DPM Date: 0 02/24/2024 Generated for Laura moser/Scarlett/Nahomyransmitting on: 02:58 PM EDT
--- OUTSIDE RECORDS SUMMARY | 2025-02-11 09:00 | XMS_ITS ---
Author Organization [facility] Address [address] [place] [address] Care Team Providers Care Bath Steward/Stewardess Name Role Phone Jose Manuel Escalera MD Primary Care Provider Brandon Stokes Unavailable [phone] Medications Medication SIG (Take, Route, Frequency, Duration) [...] Active Encounters Encounter Location Date Provider Diagnosis [facility] [address] [place] [address] 02/11/2025 Brandon Lozano Plan Of Treatment No Information Progress Notes * Aaron VALVERDEDOB:1950 (75 yo M)Acc No.[id number]:02/11/2025 Progress Note Patient: Aaron HYMAN Provider: Salinas Lozano DPM :1950 A ge:74 Y S ex:Male Date:02/11/2025 Address:[address] [place] [address] [address] [id number] Pcp:Jose Manuel Escalera MD Subjective: * Chief [...] 0 02/11/2025 Generated for Laura moser/Scarlett/Yovana on: 02:58 PM EDT
[2025-06-27 13:46] VITALS: BP 134/62; PULSE 75; BMI 42.4
--- NOTE | 2025-06-27 13:46 | MHC.OFFVIS ---
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 Accompanied by: Spouse Allergies No Known Allergies (No Known Allergies*) Allergy (Verified 06/07/25 15:10) Medication List - Last Reconciled 06/27/25 by Marvel Devlin MD amiodarone 200 mg PO DAILY apixaban (Eliquis) 5 mg PO BID 90 days atorvastatin 40 mg PO BEDTIME bumetanide 2 mg PO BID carvedilol 6.25 mg PO BID clopidogrel 75 mg PO DAILY Donut pillow As directed famotidine 20 mg PO DAILY foam bandage (Mepilex) As directed hydralazine 50 mg PO BID ipratropium-albuterol 0.5 mg-3 mg(2.5 mg base)/3 mL 3 mL inhalation Q6H PRN isosorbide dinitrate 5 mg See Protocol PO BID melatonin 5 mg PO BEDTIME HPI Comments Details: 75 year gentleman who is here for follow-up. He has seen Pao in our office previously. He has known history of coronary disease with ischemic cardiomyopathy and moderate LV dysfunction EF is 35% by echocardiography in August 2024 with regional wall motion abnormalities consistent with ischemic cardiomyopathy. He is status post Bi V ICD. He had VFib arrest in March of 2024. He also has background of paroxysmal atrial fibrillation and atrial flutter and is currently on amiodarone along with Eliquis. Compared to April 2025 to now he has gained approximately 50 lb. He lives is significantly sedentary life. He does not do any significant physical activity in his day-to-day life. Most activity has done his grocery shopping which is partially using a scooter. He is denying any chest discomfort or shortness of breath. The has tried to talk to him for exercise but he does not seem motivated to do any activities. 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 Father No problems noted. Social History Household Members: Spouse Household Members Other:: Housing: Apartment Are you a primary physician primary care sports medicine to a significant other at home: No Do you presently have visiting nurse or other home services: No Patient Tobacco Use Status: Former Tobacco user Tobacco use type: Cigarette e-Cigarette/Vaping Use: Never Used Second Hand Smoke Exposure: No Advance Directives Date on File: 09/12/24 service: Yes Current occupational status: retired Cognitive needs: No Hearing needs: No Vision needs: Yes (reading glasses) Review of Systems Const Denies chills, Denies fatigue, Denies fever(s), Denies frequent falls, Denies weakness, Denies weight gain and Denies weight loss ENT Denies dizziness Card Denies chest pain, Denies leg edema, Denies lightheadedness, Denies palpitations, Denies dyspnea and Denies dyspnea on exertion Resp Denies cough, Denies dyspnea and Denies dyspnea on exertion GI Denies hematochezia Musc Denies abnormal gait, Denies muscle weakness, Denies numbness, Denies radiating pain into limb and Denies tingling Neuro Denies abnormal gait, Denies dizziness, Denies frequent falls, Denies numbness, Denies tingling and Denies weakness Endo Denies fatigue and Denies palpitations Physical Exam Vital Signs: Last Vital Signs Pulse 75 06/27/25 13:46 BP 134/62 06/27/25 13:46 BMI result Body Mass Index 42.4 GENERAL APPEARANCE: in no acute distress, morbidly obese. NECK: no carotid bruit, no jugular venous distention. SKIN: no suspicious lesions, warm and dry. HEART: no murmurs, regular rate and rhythm. LUNGS: clear to auscultation bilaterally. ABDOMEN: soft, nontender. EXTREMITIES: +1 edema. PERIPHERAL PULSES: equal. NEUROLOGIC: No gross deficits, AAO X 3 Office Procedures Cardiac Device Check Cardiac Device Check Details: Bi V ICD [place] [employer], battery life 6.7 years, lead thresholds and impedance in normal range. Bi V paced more than 99%. 85483-[place] Cardiac Device Interrogation, pacemaker Procedure code (CPT) selection complete EKG Details: Atrial sensed V paced rhythm 75 beats per minute, QTC 500 milliseconds. 79635-Qwimgkzjzhtmbjezq, Complete Assessment & Plan Assessment & Plan (1) Hypertension: Comment: - Maintain current antihypertensive therapy - Pressures well controlled in clinic today - Reinforced need of good pressure control and medication adherence Code(s): I10 - Essential (primary) hypertension Category: Medical Qualifiers: Hypertension type: unspecified Qualified Code(s): I10 - Essential (primary) hypertension (2) Ischemic cardiomyopathy: Code(s): I25.5 - Ischemic cardiomyopathy Category: Medical (3) Chronic heart failure: Code(s): I50.9 - Heart failure, unspecified Category: Medical Plan 75 year gentleman who is here for follow-up. He has background history of ischemic cardiomyopathy and had VFib arrest in March of 2024 in his status post Bi V ICD. He is 99% based on the ICD interrogation today. Echocardiography from August 2024 showed EF of 30 35% with regional wall motion abnormalities consistent with ischemic cardiomyopathy. He has gained significant weight due to overeating and lack of activity. Clinically does not appear to be in significant heart failure. I have advised him to continue same medications. I am referring him for cardiac rehabilitation. I think he will benefit from exercise and weight loss. He will see us back in 4 months. Thank you for allowing me to participate in the care of your patient. Please feel free to contact me if you have any questions. Orders: Orders Cardiac Rehab Today I25.5 - Ischemic cardiomyopathy, Z98.61 - Coronary angioplasty status Coding Level of Care Code Est Pt Level 4 (72769) Diagnoses Hypertension, unspecified type I10 Hypertension type: unspecified Ischemic cardiomyopathy I25.5 Chronic heart failure I50.9 CPT Codes Cardiac Device Check - Cardiac Device 12: 55724-Kgpiqb Cardiac Device Interrogation, pacemaker ([id number]) EKG - CPT: 39133-Jsmuckgwovnwunosw, Complete ([id number])
--- OUTSIDE RECORDS SUMMARY | 2025-06-27 14:58 | XMS_ITS | Patient Health Record ---
Author Organization [facility] Matilde jes MilliganPancho Address [address] [place] [address] Care Team Providers Care Ethics Instructor Name Role Phone Jose Manuel Escalera MD Primary Care Provider Brandon Stokes Unavailable [phone] Allergies No Known Allergies Reason For Referral [...] atherosclerosis of arteries of lower limbs (disorder) ([id number] ) Atherosclerosis of [place] artery of both lower extremities, with unspecified presence of clinical manifestation (I70.203) Active confirmed Q7(A), Q8(2B), Q9(1B,2 C) Vital Signs Blood pressure diastolic 80 mm Hg 10/15/2024 Height 5 ft 10 in in 10/15/2024 Blood pressure systolic 117 mm Hg 10/15/2024 Weight 285 lbs 10/15/2024 BMI 40.89 kg/m2 10/15/2024 Procedures Procedure Date Ordered Date Performed Result Body Sit e 04497-VVILQGD NAIL, 6 OR MORE 10/15/2024 N/A 90496-VFYP SKIN LESIONS, OVER 4 10/15/2024 N/A Encounters Encounter Location Date Provider Diagnosis [facility] [address] [address] 10/15/2024 Brandon Lozano Atherosclerosis of platinum artery of both lower extremities, with unspecified presence of clinical manifestation I70.203 ; Tinea unguium B35.1 ; Pain in right toe(s) M79.674 and Pain in left toe(s) M79.[address] [facility] [address] 02/11/2025 Brandon Lozano Assessments Encounter Date Diagnosis (ICD Code) Assessment Notes Treatment Notes Treatment Clinical Notes Section Notes 10/15/2024 Atherosclerosis of platinum artery of both lower extremities, with unspecified presence of clinical manifestation (ICD-10 - I70.203) Q7(A), Q8(2B), Q9(1B,2C) 10/15/2024 Tinea unguium (ICD-10 - B35.1) 10/15/2024 Pain in right toe(s) (ICD-10 - M79.674) 10/15/2024 Pain in left toe(s) (ICD-10 - M79.675) Plan Of Treatment Pending Test Test Name Order Date [id number]-EBZPOLE NAIL, 6 OR MORE 12/04/2021 60427-AIKNMGD NAIL, 6 OR MORE 04/05/2022 33457-DVPTNAS NAIL, 6 OR MORE 11/25/2023 07106-EKLJRYH NAIL, 6 OR MORE 10/15/2024 44077-FREWROE NAIL, 6 OR MORE 05/29/2021 67751-QNXAGCP NAIL, 6 OR MORE 02/13/2021 47187-Avfozefa Plate 05/29/2021 69357-Kidfapwa Plate 04/05/2022 88447-Bcwmjlep Plate 11/25/2023 49714-UHFE SKIN LESIONS, OVER 4 11/25/19 24 38329-FLTL SKIN LESIONS, OVER 4 10/15/19 15024-EZQM SKIN LESIONS, OVER 4 04/05/20 22 39021-YSHR SKIN LESIONS, OVER 4 12/05/19 96977-YFCW SKIN LESIONS, OVER 4 05/29/20 21 94623-RYCL SKIN LESIONS, 2 TO 4 02/14/20 21 Insurance Providers Payer Name Payer Address Payer Phone Subscriber Number Group Number Insured Name Patient Relationship to Insured Coverage Start Date Coverage End Date [employer]vantage [address] [place] [address] [id number] Aaron Valverde Self - patient is the insured Medical (General) History Medical History History ICD Code Back,Hip,and Knee pain Dementia High blood pressure Stroke Measles Mumps Chicken pox CAD Heart attack - March 25, 2024 Surgical History Surgery Date(Month/Year) Hospitalization History Reason Date(Month/Year) [facility] [place]
--- OUTSIDE RECORDS SUMMARY | 2025-06-27 14:58 | XMS_ITS | Clinical Summary ---
Author Organization [facility] Address [address] [place] [address], [place] [address] Care Team Providers Care Emergency Services Professional Name Role Phone Unavailable Primary Care Provider [...] to complete this topic Insurance [facility]
== END 2025-06-27 14:36 | disposition home or self-care (01) ==
LOC: HO.HCS 12:34
PROVIDERS: PCP Internal Medicine; Visit Provider Internal Medicine Cardiovascular Disease
DX: I11.0 Hypertensive heart disease with heart failure (principal); I50.9 Heart failure, unspecified; I25.5 Ischemic cardiomyopathy; Z95.0 Presence of cardiac pacemaker
CPT/HCPCS: 93010; 93280; 99214

== ENCOUNTER → 2025-06-27 12:32 | Outpatient (BNVA) | payer MEDICARE, SELFPAY | PROVIDERS: PCP Internal Medicine; Visit Provider Internal Medicine Cardiovascular Disease | DX: Z45.018 Encounter for adjustment and management of other part of cardiac pacemaker (principal); I11.0 Hypertensive heart disease with heart failure; I50.9 Heart failure, unspecified; I25.5 Ischemic cardiomyopathy | CPT/HCPCS: 93005; 93280; 99212 ==

== ENCOUNTER 2025-07-15 10:00 | Outpatient (RCR) | payer MEDICARE, SELFPAY | END 2025-08-03 09:55 | disposition admitted as inpatient to this hospital (09) | LOC: HO.CR 10:00 | PROVIDERS: PCP Student in an Organized Health Care Education/Training Program; Visit Provider Internal Medicine Cardiovascular Disease | DX: I25.5 Ischemic cardiomyopathy (principal) | CPT/HCPCS: 93798 ==

== ENCOUNTER → 2025-07-29 23:59 | Outpatient (BNV) | payer MEDICARE, SELFPAY | PROVIDERS: PCP Student in an Organized Health Care Education/Training Program; Visit Provider Internal Medicine Cardiovascular Disease | DX: I21.4 Non-ST elevation (NSTEMI) myocardial infarction (principal); R57.0 Cardiogenic shock | CPT/HCPCS: 92941; 92978; 99152 ==

== ENCOUNTER 2025-08-22 07:59 | Inpatient (IN) | payer MEDICARE, SELFPAY ==
[2025-08-22] VITALS (12 sets, daily range): BP systolic 132–156; BP diastolic 60–105; PULSE 79–95; RESP 19–33; TEMP 36.2–37; O2SAT 91–99; BMI 40.4
--- NOTE | ~2025-08-22 | XR_ITS ---
EXAMINATION: XR CHEST CLINICAL INFORMATION: sob COMPARISON: Previous chest x-rays most recent January 2025 TECHNIQUE: Frontal view of the chest was obtained. FINDINGS: Left subclavian pacemaker/AICD appears unchanged. Pulmonary venous redistribution and increased central interstitial markings. As probably represents a pulmonary edema. Moderate left and small right pleural effusions. No pneumothorax. Spot stable slightly enlarged cardiac silhouette. Calcified thoracic aorta. Degenerative changes of the spine. XR/XR chest 1V IMPRESSION: Probable CHF with bilateral pleural effusions, left greater than right. Electronically signed by: Lee Ann Dumont MD 08/22/2025 08:53 AM EST
--- NOTE | 2025-08-22 08:06 | ECG_ITS ---
Test Reason : sob Blood Pressure : */* mmHG Vent. Rate : 91 BPM Atrial Rate : 91 BPM P-R Int : 176 ms QRS Dur : 130 ms QT Int : 402 ms P-R-T Axes : * -36 85 degrees QTcB Int : 494 ms Artifact in tracing Atrial-sensed ventricular-paced rhythm Abnormal ECG When compared with ECG of 23-Jan-2025 02:35, Vent. rate has increased by 15 bpm Referred By: Generic ED Physician Electronically Signed By: DUSTIN GARCIA
--- NOTE | 2025-08-22 09:00 | ED.SOB ---
HPI - SOB/Dyspnea General Chief Complaint: Dyspnea Stated Complaint: SOB,99% RA PER EMS Time Seen by Provider: 08/22/25 08:08 Source: patient and family () Mode of arrival: ambulatory Limitations: no limitations History of Present Illness ED Provider: ELLIOTT ASHRAF PA-C HPI Narrative: 75 year old male with pmhx significant for COPD, CHF, ischemic cardiomyopathy, MN 2 mo s/p stent placement, paroxysmal atrial fibrillation with ICD in place, stage 3 CKD, HTN presents to the ED today for evaluation of increasing shortness of breath. Reports MN on 07/19 with stent placement. He spent 1 month in rehab following this. Reports continued shortness of breath since however woke up this morning with worsening symptoms. Reports using his inhaler this morning with minimal relief. Endorses dyspnea on exertion, unable to walk up the stairs in his home. Endorses cough with white sputum production along with bilateral lower extremity swelling. Reports compliance with all home medications. Denies headache, dizziness, vision changes, chest pain, palpitations, lower extremity pain. Related Data Home Medications ?Medication ?Instructions ?Recorded ?Confirmed melatonin 10 mg tablet 5 mg PO BEDTIME Sleep 01/28/25 06/27/25 Previous Rx's ?Medication ?Instructions ?Recorded amiodarone 200 mg tablet 200 mg PO DAILY #90 tabs 04/05/25 Donut pillow #1 ea 05/04/25 atorvastatin 40 mg tablet 40 mg PO BEDTIME #90 tabs 05/04/25 carvedilol 6.25 mg tablet 6.25 mg PO BID #180 tabs 05/04/25 clopidogrel 75 mg tablet 75 mg PO DAILY #90 tabs 05/04/25 famotidine 20 mg tablet 20 mg PO DAILY #90 tabs 05/04/25 foam bandage 4 X 4 (Mepilex) #5 ea 05/04/25 hydralazine 50 mg tablet 50 mg PO BID #90 tabs 05/11/25 apixaban 5 mg tablet (Eliquis) 5 mg PO BID 90 days #180 tabs 06/27/25 bumetanide 2 mg tablet 2 mg PO BID #180 tabs 06/30/25 Spacer #1 ea 07/08/25 ipratropium 0.5 mg-albuterol 3 mg 3 ml inhalation Q6H PRN for 10/17/25 (2.5 mg base)/3 mL nebulization wheezing #90 mL soln albuterol sulfate 90 mcg/actuation 1 puff inhalation QID PRN 07/11/25 aerosol inhaler (Ventolin HFA) shortness of breath or wheezing #8.5 grams isosorbide mononitrate 30 mg 30 mg PO DAILY #90 tabs 08/15/25 tablet,extended release 24 hr metoprolol succinate 25 mg 25 mg PO DAILY #90 tabs 08/15/25 tablet,extended release 24 hr spironolactone 25 mg tablet 25 mg PO DAILY #90 tabs 08/15/25 trazodone 50 mg tablet 25 mg (1/2 x 50 mg) PO BEDTIME #90 08/15/25 tabs dapagliflozin propanediol 10 mg 10 mg PO DAILY #90 tabs 08/16/25 tablet (Farxiga) Allergies Allergy/AdvReac Type Severity Reaction Status Date / Time No Known Allergies (No Known Allergy Verified 08/22/25 08:11 Allergies*) Review of Systems Review of Systems: Yes all other systems are reviewed and are negative [facility] Past Medical History Attestation statement: The following information was validated with the patient. 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 Father No problems noted. Social History Social History Household Members: Spouse Household Members Other:: Housing: Apartment Are you a primary sub acute care nurse to a significant other at home: No Do you presently have visiting nurse or other home services: No Patient Tobacco Use Status: Former Tobacco user Tobacco use type: Cigarette e-Cigarette/Vaping Use: Never Used Second Hand Smoke Exposure: No Advance Directives: Yes Advance Directives on File: Yes Advance Directives Date on File: 09/12/24 service: Yes Current occupational status: retired Cognitive needs: No Hearing needs: No Vision needs: Yes (reading glasses) Physical Exam Vital Signs: Vital Signs: Last Vital Signs Temp 97.1 F 08/22/25 10:45 Pulse 83 08/22/25 10:45 Resp 24 H 08/22/25 10:45 BP 142/67 H 08/22/25 10:45 Pulse Ox 95 08/22/25 10:45 O2 Del Method Room Air 08/22/25 10:45 BMI result Body Mass Index 40.4 hypertensive, tachcypneic, not hypoxic General: Well appearing, in no acute distress. Skin: Warm, dry, intact. No rashes or lesions. Head: Normocephalic, atraumatic. EENT: Hearing is intact b/l. Conjunctiva clear. PERRLA. EOM intact. Moist mucous membranes.? Cardiac: Chest wall symmetric. RRR. no jvd. Lungs: normal respiratory effort, no accessory muscle use, no tripoding. Lungs sounds diminished throughout, crackles to bilateral bases. Abdomen: Soft, non-tender, non-distended. No rebound tenderness or guarding. Positive BS x4. Ext: 2+ pitting edema to b/l LE. no calf tenderness. Neuro: AOx3. Normal speech. Ambulating with steady gait. Course Course Course Narrative: CBC without leukocytosis. There is neutrophil predominance. Normocytic anemia, H and H stable when compared to priors. Above transfusion threshold. Chemistry showing slight hyperkalemia to 5.3 - there are no t wave changes on ekg. likely related to CKD.will give 5 of lokelma. renal function appears to be around baseline. liver function wnl. trop wnl at 29.5. nt pro bpn 9661.2. cxr showing pulmonary edema and bilateral pleural effusions, consistent with acute exacerbation of CHF. Attempted ambulatory O2 trial, patient has increased work of breathing upon getting out of bed, not tolerating this. O2 noted to drop to 91%. > spoke with patient and regarding work up results - recommend admission to medicine for management of CHF. They are agreeable with this. IV lasix ordered. > spoke with hospitalist ALMA ROSA Miller - accepted patient admission to medicine. > noted to have a UTI - will order IV ceftriaxone for coverage. Medications Administered Discontinued Medications Generic Name Dose Route Start Last Admin Trade Name Freq PRN Reason Stop Dose Admin Furosemide 40 mg 08/22/25 09:24 08/22/25 09:53 Furosemide 40 Mg/4 Ml Vial IVPUSH 08/22/25 09:25 40 mg ONCE ONE Administration Protocol Medical Decision Making Medical Decision Making [facility] Narrative: 75 year old male with pmhx significant for COPD, CHF, ischemic cardiomyopathy, MN 2 mo s/p stent placement, paroxysmal atrial fibrillation with ICD in place, stage 3 CKD, HTN presents to the ED today for evaluation of increasing shortness of breath. he is hypertensive and tachypneic. No respiratory distress, no tripoding. Lungs sounds are diminished throughout with crackles to bilateral bases. 2+ pitting edema to bilateral lower extremities. No JVD. Differential diagnosis includes anemia, electrolyte abnormality, COPD exacerbation, bronchitis, pneumonia, CHF, ACS, pleural effusion, viral syndrome Plan for labs, ekg, cxr, viral swabs, re-evaluation. Differential Diagnosis Differential Diagnoses: The differential diagnosis associated with the presentation includes as above. Admission/Observation Consideration of admission/observation: Escalation of care including admission/observation considered Patient admitted to medicine for management of CHF Consult Healthcare Provider Management of the patient was discussed with: Hospitalist (trisha ST) Lab Data [facility] Lab Attestation statement: I reviewed the patient's lab results. As above 08/22/25 09:30 08/22/25 09:30 Labs: Lab Results 08/22/25 08/22/25 08/22/25 Range/Units 09:30 09:34 10:37 WBC 5.4 (4.8-10.8) X10*3/uL RBC 4.13 L (4.60-5.80) X10*6/uL Hgb 11.8 L (14.0-18.0) g/dl Hct 39.3 L (42.0-52.0) % MCV 95.2 (80.0-98.0) fL MCH 28.6 (27.0-33.0) pg MCHC 30.0 L (31.0-36.0) g/dl RDW 16.7 H (11.0-16.0) % Plt Count 135 L (160-400) X10*3/uL MPV 10.3 (9.4-12.4) fL Immature Gran % (Auto) 0.7 H (0.0-0.4) % Neut % (Auto) 80.9 H (45-73) % Lymph % (Auto) 8.8 L (20-40) % [place] % (Auto) 7.8 (2-11) % Eos % (Auto) 0.9 (0-4) % Baso % (Auto) 0.9 (0-2) % Lymph # (Auto) 0.5 L (1.2-4.9) X10*3/uL [place] # (Auto) 0.4 (0.1-1.2) X10*3/uL Eos # (Auto) 0.1 (0.0-0.4) X10*3/uL Baso # (Auto) 0.1 (0.0-0.2) X10*3/uL Abs Immat Gran (auto) 0.04 H (0.00-0.03) X10*3/uL Absolute Neuts (auto) 4.3 (2.0-8.3) x10*3/uL Absolute Nucleated RBC 0.000 (0.0-0.012) X10*3/uL Nucleated RBC % (auto) 0.0 (0.0-0.2) /100WBC PT 19.2 H (11.2-13.5) SEC INR 1.6 H (0.9-1.1) VBG pH 7.27 L (7.32-7.43) VBG pCO2 51 mmHg VBG pO2 46 mmHg VBG HCO3 24 (22-26) mmol/L VBG O2 Saturation 49.0 % VBG Base Excess -3.2 mmol/L Sodium 140 (135-145) mmol/L Potassium 5.3 H D (3.3-5.1) mmol/L Chloride 111 H (96-108) mmol/L Carbon Dioxide 17 L (22-29) mmol/L Anion Gap 17 (12-20) BUN 35 H (9-16) mg/dL Creatinine 1.99 H (0.5-1.4) mg/dL Estim Creat Clear Calc 43.7 Estimated GFR 33 Random Glucose 93 (60-115) mg/dL Calcium 8.8 (8.4-10.2) mg/dL Total Bilirubin 0.6 (0.0-1.0) mg/dL AST 23 (5-37) U/L ALT 20 (0-40) U/L Alkaline Phosphatase 210 H (39-117) U/L Troponin I High Sens 29.5 (<3.5-35.0) ng/L NT-Pro-B Natriuret Pep 9661.2 H (<300) pg/mL Total Protein 7.4 (6.5-8.0) g/dL Albumin 4.1 (3.5-5.0) g/dL Urine Color Yellow Urine Appearance Clear Urine pH 5.5 (5.0-9.0) Ur Specific [place] 1.015 (1.005-1.025) Urine Protein Trace (Neg-Trace) mg/dL Urine Glucose (UA) 500 H (Negative) mg/dL Urine Ketones Negative (Negative) mg/dL Urine Blood Trace H (Negative) Urine Nitrite Positive H (Negative) Ur Leukocyte Esterase Large (3+) H (Negative) Urine RBC 0-2 (0-2) /HPF Urine WBC >50 H (0-5) /HPF Ur Squamous Epith Cells 0-2 (0-2) /HPF Urine Bacteria 1+ (None Seen) Hyaline Casts 0-2 (0-2) /LPF COVID-19 (JAZZY) Negative (Negative) COVID-19 Clin Com See Note Influenza Type A (BUCKY) Negative (Negative) Influenza Type B (BUCKY) Negative (Negative) Influenza A & B Note See Note Independent Interpretation I performed an independent interpretation of an: EKG and Plain X-Ray Interpretation: EKG showing paced rhythm, no acute ischemic changes or st elevations chest xray showing pulmonary edema and bilateral pleural effusions Radiology Impression Discussion of test interpretation with radiology: I have reviewed the radiologist's reading. Radiologist Impression: Procedure(s): XR chest 1V Accession Number(s): [id number] cc: Generic ED Physician; Chris Espino MD~ Reason for Exam: sob EXAMINATION: XR CHEST CLINICAL INFORMATION: sob COMPARISON: Previous chest x-rays most recent January 2025 TECHNIQUE: Frontal view of the chest was obtained. FINDINGS: Left subclavian pacemaker/AICD appears unchanged. Pulmonary venous redistribution and increased central interstitial markings. As probably represents a pulmonary edema. Moderate left and small right pleural effusions. No pneumothorax. Spot stable slightly enlarged cardiac silhouette. Calcified thoracic aorta. Degenerative changes of the spine. XR/XR chest 1V IMPRESSION: Probable CHF with bilateral pleural effusions, left greater than right. Electronically signed by: Lee Ann Dumont MD 08/22/2025 08:53 AM EST Independent Historian Clinical information obtained from an independent historian. History obtained from or confirmed by: Spouse () and EMS External Record Review External record reviewed: Inpatient record, Office record, Outpatient record and Prior outpatient labs Prescription Management I considered prescription management with: Other (lasix) Chronic Conditions Patient?s care impacted by: Other (CHF) Social Determinants Patient?s care significantly limited by Social Determinants of Health including: Other Social Determinant of Health Critical Care Time Critical Care Time Critical Care Time: Yes Total Critical Care Time: 40 Attestation: Critical care time in the amount of 40 minutes has been provided to the patient in terms of direct patient care, frequent reevaluation, consultation with hospitalist, review and interpretation of medical data and results, and management of potentially life-threatening conditions. This is all outside of any medical procedures. Discharge Plan Discharge Clinical Impression: Acute exacerbation of CHF (congestive heart failure), Acute hyperkalemia, Acute UTI Patient Disposition: Admitted As Inpatient
--- OUTSIDE RECORDS SUMMARY | 2025-08-22 09:10 | XMS_ITS | Encounter Summary ---
Author Organization [facility] Address [address] [place] [address] Phone Care Team Providers Care Transition Assistant Name Role Phone Chris Espino MD Primary Care Provider Encounter Details Date Type Department Care Team (Late st Contact Info) Description 08/20/2025 [facility] Visit [facility] [address] [place], [place] [phone] Bridget Eaton RN [address] [place] [address] CASE COMMUNICATION Social History Tobacco Use Types Packs/Day Years Used Date Smoking Tobacco: Never Assessed Education Answer Date Recorded Are you interested in more education? Not on primitivo e 08/10/2025 Are you concerned about learning? Not on file 08/10/2025 No 08/10/2025 No 08/10/2025 Digital Access Answer Date Recorded No 08/10/2025 No 08/10/2025 Reliable internet access at home? Not on file 08/10/2025 Device with a working camera? Not on file Sex and Gender Information Value Date Recorded Sex Assigned at Not on file Legal Sex Male 12:01 PM EST Gender Identity Not on file Sexual Orientation Not on file documented as of this encounter Plan of Treatment Upcoming Encounters Date Type Department Care Team (Late st Contact Info) Description 08/22/2025 11:00 AM EST Appointment [facility] [address] [place], [place] [phone] Destini Mercado RN [address] [place] [address] documented as of this encounter Visit Diagnoses Not on filedocumented in this encounter Care Teams Transition Assistant Relationship Specialty Start Date End Date Chris Espino MD [address] [place] [address] PCP - General Internal Medicine 08/10/25 documented as of this encounter Additional Source Comments The information contained in this document represents components of the legal health record. It is not the complete legal health record.[facility]
--- OUTSIDE RECORDS SUMMARY | 2025-08-22 09:10 | XMS_ITS | Encounter Summary ---
Author Organization [facility] Address [address] [place] [phone] Phone Care Team Providers Care General Intern Name Role Phone Chris Espino MD Primary Care Provider [phone] Encounter Details Date Type Department Care Team (Late st Contact Info) Description 08/21/2025 Home Care Visit [facility] [address] [place], [place] [phone] Bridget Eaton RN [address] [place] [address] CASE COMMUNICATION Social History Tobacco Use Types [...] Appointment [facility] [address] [place], [place] [phone] Destini Mercado RN [address] [place] [address] documented as of this encounter Visit Diagnoses Not on filedocumented in this encounter Care Teams General Intern Relationship Specialty Start Date End Date Chris Espino MD [address] [place] [address] PCP - General Internal Medicine 08/10/25 documented as of this encounter Additional Source Comments The information contained in this document represents components of the legal health record. It is not the complete legal health record.[facility]
--- OUTSIDE RECORDS SUMMARY | 2025-08-22 09:11 | XMS_ITS | Encounter Summary ---
Author Organization [facility] Address [address] [place] [address] Phone Care Team Providers Care Independent Jeweler Name Role Phone Chris Espino MD Primary Care Provider [phone] Encounter Details Date Type Department Care Team (Late st Contact Info) Description 08/18/2025 Home Care Visit [facility] [address] [place], [place] [phone] Argentina Mayo RN [address] [place] [address] CASE COMMUNICATION Social History Tobacco Use Types [...] Info) Description 08/22/2025 11:00 AM EST Appointment [facility] [address] [place], [place] [phone] Destini Mercado RN [address] [place], [place] [phone] documented as of this encounter Visit Diagnoses Not on filedocumented in this encounter Care Teams Independent Jeweler Relationship Specialty Start Date End Date Chris Espino MD [address] [place] [address] PCP - General Internal Medicine 08/10/25 documented as of this encounter Additional Source Comments The information contained in this document represents components of the legal health record. It is not the complete legal health record.[facility]
--- OUTSIDE RECORDS SUMMARY | 2025-08-22 09:11 | XMS_ITS | Encounter Summary ---
Author Organization [facility] Address [address] [place] [address] Phone Care Team Providers Care Contract Runner Name Role Phone Chris Espino MD Primary Care Provider Encounter Details Date Type Department Care Team (Late st Contact Info) Description 08/18/2025 Home Care Visit [facility] [address] [place], [place] [phone] Argentina Mayo RN [address] [place] [address] CASE COMMUNICATION Social History Tobacco Use Types [...] Appointment [facility] [address] [place], [place] [phone] Destini Mercado RN [address] [place], [place] [phone] documented as of this encounter Visit Diagnoses Not on filedocumented in this encounter Care Teams Contract Runner Relationship Specialty Start Date End Date Chris Espino MD [address] [place] [address] PCP - General Internal Medicine 08/10/25 documented as of this encounter Additional Source Comments The information contained in this document represents components of the legal health record. It is not the complete legal health record.[facility]
--- OUTSIDE RECORDS SUMMARY | 2025-08-22 09:11 | XMS_ITS | Clinical Summary ---
Author Organization [facility] Address [address] [facility] [address] [facility] [place] [address] Phone Care Team Providers Care Pail Tester Name Role Phone Chris Espino MD Primary Care Provider Encounters Date Type Department Care Team Description 08/21/2025 [facility] Care Visit [facility] [address] [place] [phone] Bridget Eaton, ALICJA CASE COMMUNICATION 08/20/2025 Home Care Visit [facility] [address] [place] [phone] Bridget Eaton, RN CASE COMMUNICATION 08/18/2025 Home Care Visit [facility] [address] [place] [phone] Argentina Mayo, ALICJA CASE COMMUNICATION 08/18/2025 Home Care Visit [facility] [address] [place] [phone] Argentina Mayo, ALICJA CASE COMMUNICATION 08/10/2025 Orders Only [facility] [address] [place] [phone] Homehealth, Interface ProviderMD from Last 3 Months Social History Tobacco Use Types Packs/Day Years [...] Orientation Not on file Plan of Treatment Upcoming Encounters Date Type Department Care Team (Late st Contact Info) Description 08/22/2025 11:00 AM EST Appointment [facility] [address] [place] [phone] Destini Mercado, ALICJA [address] [place] [address] [email or web address] Medical Devices Not on file Insurance MEDICARE HMO REPLACEMENT [facility] [place] MEDICARE HMO REPLACEMENT MEDICARE HMO REPLACEMENT MEDICARE HMO REPLACEMENT MEDICARE HMO REPLACEMENT MEDICARE HMO REPLACEMENT Care Teams Pail Tester Relationship Specialty Start Date End Date Chris Espino MD [address] [place] [address] Drive [address] [place] [address] PCP - General Internal Medicine 08/10/25 Additional Source Comments The information contained in this document represents components of the legal health record. It is not the complete legal health record.[facility]
[2025-08-22 09:34] LABS: MANUAL DIFF FLAG NO
[2025-08-22 09:38] LABS: VBG HCO3 24 mmol/L (22-26); VBG O2 % Saturation 49.0 %
[2025-08-22 09:40] LABS: Venous Blood Gas Refer to POC result
[2025-08-22 09:40] LABS: Hematocrit 39.3 % (42.0-52.0); Hemoglobin 11.8 g/dl (14.0-18.0); Imm Gran Abs Auto 0.04 X10*3/uL (0.00-0.03); Imm Gran Pct Auto 0.7 % (0.0-0.4); Lymphocytes Absolute Auto 0.5 X10*3/uL (1.2-4.9); Mean Corpuscular HGB Conc 30.0 g/dl (31.0-36.0); Mean Corpuscular Hemoglobin 28.6 pg (27.0-33.0); Mean Corpuscular Volume 95.2 fL (80.0-98.0); NRBC Abs Auto 0.000 X10*3/uL (0.0-0.012); NRBC Pct Auto 0.0 /100WBC (0.0-0.2); Platelet Count 135 X10*3/uL (160-400); Red Blood Count 4.13 X10*6/uL (4.60-5.80); White Blood Count 5.4 X10*3/uL (4.8-10.8)
[2025-08-22] MEDS: Furosemide 40 MG/4 ML VIAL IVPUSH (09:53)
[2025-08-22 09:54] LABS: Alanine Aminotransferase 20 U/L (0-40); Albumin Level 4.1 g/dL (3.5-5.0); Alkaline Phosphatase 210 U/L (39-117); Anion Gap 17 (12-20); Aspartate Amino Transferase 23 U/L (5-37); Blood Urea Nitrogen 35 mg/dL (9-16); Calcium 8.8 mg/dL (8.4-10.2); Carbon Dioxide 17 mmol/L (22-29); Chloride 111 mmol/L (96-108); Creatinine Clr Calc Pharmacy 43.7; Estimated Glomerular Filt Rate 33; INTERNATIONAL NORM RATIO 1.6 (0.9-1.1); Potassium 5.3 mmol/L (3.3-5.1); Prothrombin Time 19.2 SEC (11.2-13.5); Sodium 140 mmol/L (135-145); Total Protein 7.4 g/dL (6.5-8.0)
[2025-08-22 09:57] LABS: COVID-19 Test Negative (Negative); IDNOW Serial# 55D5AD1C; IDNOW Serial# 58CA691E; Influenza B2 Negative (Negative)
[2025-08-22 10:04] LABS: Troponin-I High Sensitivity 29.5 ng/L (<3.5-35.0)
--- NOTE | 2025-08-22 10:42 | PC.NURSE ---
up with one assist to urinate. increased work of breathing upon standing, patient unable to ambulate to bathroom d/t wob. oxygen noted to be 90% w/ standing. patient back in bed 500mL urine output into urinal. reports feeling better when at rest. 96% room air at this time.
[2025-08-22 10:45] LABS: Appearance Urine Clear; Glucose Urine UA 500 mg/dL (Negative); PH 5.5 (5.0-9.0); Specific Gravity - Urine 1.015 (1.005-1.025); UMIC TRIGGER UACC YES
[2025-08-22 10:47] LABS: UACC Culture Trigger YES
--- NOTE | 2025-08-22 11:22 | PM.CNCAR ---
History of Present Illness History of Present Illness Date of Service: 08/22/25 Chief complaint: CHF Narrative: This is a cardiology consultation regarding congestive heart failure. Generally seen by . Clinic visit was in June. Based on that note, history of ischemic cardiomyopathy, ventricular fibrillation/arrest in March of 2024 status post Bi V ICD. Following that visit, it seems that there was a hospitalization at [facility] few weeks later. During that hospitalization, patient had ischemic cardiomyopathy, worsening congestive heart failure and cardiogenic shock. He underwent balloon pump placement and diagnostic catheterization showed worsening proximal LAD stenosis. Then had PCI to proximal LAD. Currently, he is in the ER for shortness of breath. Very vague historian. Asked him multiple questions regarding his symptoms but questions are variable. Per ER documentation, he has had shortness of breath for the last month or so but woke up with worsening symptoms. To me, he states that he is getting short of breath with even mild amounts of activity but when I asked him we will duration, he states he has been like this for almost a year. With regard to leg swelling, again not clear how much of it is chronic versus worsening now. He has been admitted for diagnosis of congestive heart failure. Review of Systems Review of Systems: Yes all other systems are reviewed and are negative Constitutional: Constitutional: Reports as per HPI and Reports no additional constitutional complaints Eyes: Eyes: Reports as per HPI and Denies no additional eye complaints ENT: Denies system reviewed and no additional complaints, except as documented and Reports as per HPI Cardiovascular: Cardiovascular: Reports as per HPI, Reports no additional cardiovascular complaints, Denies acrocyanosis, Denies cool extremities, Denies chest pain, Reports leg edema, Denies lightheadedness, Denies palpitations and Reports dyspnea Respiratory: Respiratory: Reports as per HPI, Denies no additional respiratory complaints and Reports dyspnea Gastrointestinal: Gastrointestinal: Reports as per HPI and Denies no additional gastrointestinal complaints Genitourinary: Genitourinary: Reports no additional male genitourinary complaints and Reports as per HPI Musculoskeletal: Musculoskeletal: Reports no additional musculoskeletal complaints and Reports as per HPI Integumentary/Breasts: Skin/Breast: Reports system reviewed and no additional complaints, except as docu Neurologic: Reports system reviewed and no additional complaints, except as documented and Reports as per HPI Psychiatric: Psychiatric: Reports no additional psychiatric complaints and Reports as per HPI Endocrine: Endocrine: Reports no additional endocrine complaints, Reports as per HPI and Denies palpitations Hematologic/Lymphatic: Hematologic/Lymphatic: Reports no additional hematologic/lymphatic complaints and Reports as per HPI Allergic/Immunologic: Allergic/Immunologic: Reports no additional allergic/immunologic complaints and Reports as per HPI [facility] Past Medical History Medical History Screening for lung cancer Pressure injury CKD stage 3b, GFR 30-44 ml/min COPD (chronic obstructive pulmonary disease) Morbid obesity with BMI of 40.0-44.9, adult Biventricular ICD (implantable cardioverter-defibrillator) in place Paroxysmal atrial flutter Coronary artery disease Ischemic cardiomyopathy Atrial flutter History of cardiac arrest Complete heart block Ventilator associated pneumonia STEMI (ST elevation myocardial infarction) Hypertension 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 Father No problems noted. Surgical History Surgical History S/P ICD (internal cardiac defibrillator) procedure (04/2024) Social History Social History Household Members: Spouse Household Members Other:: Housing: Apartment Are you a primary care team coordinator scheduler to a significant other at home: No Do you presently have visiting nurse or other home services: No Patient Tobacco Use Status: Former Tobacco user Tobacco use type: Cigarette e-Cigarette/Vaping Use: Never Used Second Hand Smoke Exposure: No Advance Directives: Yes Advance Directives on File: Yes Advance Directives Date on File: 09/12/24 service: Yes Current occupational status: retired Cognitive needs: No Hearing needs: No Vision needs: Yes (reading glasses) Meds Allergies Allergy/AdvReac Type Severity Reaction Status Date / Time No Known Allergies (No Known Allergy Verified 08/22/25 08:11 Allergies*) Active Medications: Current Medications Acetaminophen (Acetaminophen 325 Mg Tablet) 650 mg PO Q6H PRN PRN Reason: Pain, Mild 1-3,fever,headache Calcium Carbonate (Calcium Carbonate 750 Mg Tab.Chew) 750 mg PO Q4H PRN PRN Reason: Heartburn Furosemide (Furosemide 40 Mg/4 Ml Vial) 40 mg IVPUSH BID@0900,1800 [facility]; Protocol Magnesium Hydroxide (Milk Of Magnesia 30 Ml Oral.Susp) 30 ml PO DAILY PRN PRN Reason: Constipation Melatonin (Melatonin 3 Mg Tablet) 6 mg PO BEDTIME PRN PRN Reason: Insomnia Sodium Chloride (0.9 % Sodium Chloride Flush 3 Ml Syringe) 3 ml IVFLUSH QSHIFT [facility] Home Medications ?Medication ?Instructions ?Recorded ?Confirmed ?Last Taken ?Type melatonin 10 mg tablet 5 mg PO BEDTIME Sleep 01/28/25 06/27/25 Unknown History Physical Exam Vital Signs: Vital Signs: Last Vital Signs Temp 97.1 F 08/22/25 10:45 Pulse 83 08/22/25 10:45 Resp 24 H 08/22/25 10:45 BP 142/67 H 08/22/25 10:45 Pulse Ox 95 08/22/25 10:45 O2 Del Method Room Air 08/22/25 10:45 BMI result Body Mass Index 40.4 Const: General: comfortable and no acute distress Orientation/consciousness: patient oriented x3 HEENT: Other: Unremarkable Head: Yes normal to inspection Neck: Neck: Yes normal visual inspection Chest: Chest palpation & inspection: normal inspection of the chest Resp: Auscultation: clear to auscultation bilaterally Cardio: Palpation: normal PMI Heart sounds: S1 normal heart sound present, S2 normal heart sound present, no gallops, no murmurs and no rubs GI: Palpation (GI): Soft to palpation Back/Spine/Pelvis: Other: unremarkable Skin: General skin exam: no rashes or lesions noted Neuro: General: patient oriented x3 Extrem: Other: 2+ leg swelling General: Yes normal to inspection Psych: Mental Status: mental status grossly normal Objective Labs and Meds 08/22/25 09:30 08/22/25 09:30 Lab results: Laboratory Results - last 24 hr 08/22/25 08/22/25 08/22/25 09:30 09:34 10:37 WBC 5.4 RBC 4.13 L Hgb 11.8 L Hct 39.3 L MCV 95.2 MCH 28.6 MCHC 30.0 L RDW 16.7 H Plt Count 135 L MPV 10.3 Immature Gran % (Auto) 0.7 H Neut % (Auto) 80.9 H Lymph % (Auto) 8.8 L Holmes % (Auto) 7.8 Eos % (Auto) 0.9 Baso % (Auto) 0.9 Lymph # (Auto) 0.5 L Holmes # (Auto) 0.4 Eos # (Auto) 0.1 Baso # (Auto) 0.1 Abs Immat Gran (auto) 0.04 H Absolute Neuts (auto) 4.3 Absolute Nucleated RBC 0.000 Nucleated RBC % (auto) 0.0 PT 19.2 H INR 1.6 H VBG pH 7.27 L VBG pCO2 51 VBG pO2 46 VBG HCO3 24 VBG O2 Saturation 49.0 VBG Base Excess -3.2 Sodium 140 Potassium 5.3 H D Chloride 111 H Carbon Dioxide 17 L Anion Gap 17 BUN 35 H Creatinine 1.99 H Estim Creat Clear Calc 43.7 Estimated GFR 33 Random Glucose 93 Calcium 8.8 Total Bilirubin 0.6 AST 23 ALT 20 Alkaline Phosphatase 210 H Troponin I High Sens 29.5 NT-Pro-B Natriuret Pep 9661.2 H Total Protein 7.4 Albumin 4.1 Urine Color Yellow Urine Appearance Clear Urine pH 5.5 Ur Specific Morris 1.015 Urine Protein Trace Urine Glucose (UA) 500 H Urine Ketones Negative Urine Blood Trace H Urine Nitrite Positive H Ur Leukocyte Esterase Large (3+) H Urine RBC 0-2 Urine WBC >50 H Ur Squamous Epith Cells 0-2 Urine Bacteria 1+ Hyaline Casts 0-2 COVID-19 (JAZZY) Negative COVID-19 Clin Com See Note Influenza Type A (BUCKY) Negative Influenza Type B (BUCKY) Negative Influenza A & B Note See Note ECG Interpretation: In the EKG, that is baseline artifact. Underlying rhythm probably sinus with the biventricular pacing. Imaging Radiologist's impression: Impressions Chest X-Ray 08/22/25 08:26 IMPRESSION: Probable CHF with bilateral pleural effusions, left greater than right. Electronically signed by: Lee Ann Dumont MD 08/22/2025 08:53 AM [facility] [place] and Plan (1) Acute on chronic combined systolic and diastolic ACC/AHA stage C congestive heart failure: Status: Acute Plan In the most recent echocardiogram from [facility]-LVEF severely reduced with wall motion abnormalities from ischemic versus stress-induced cardiomyopathy; valves poorly visualized. Per recent cardiac catheterization, status post PCI to proximal LAD. Currently, chest x-ray with probable CHF/bilateral pleural effusions, left > right. Renal insufficiency with creatinine 1.99 but seems chronic. NT pro BNP 9661. High sensitivity troponins are within range. Overall, ischemic cardiomyopathy/Bi V ICD; acute on chronic congestive heart failure. Home diuretic dosage listed as Bumex 2 mg b.i.d. but he is not able to clarify this. We can switch to intravenous Bumex. If he does not diurese adequately, then consider Bumex drip +/- metolazone. Continue Farxiga. He is on Plavix and Eliquis and that can be continued. We will follow up with you. Procedures Date of Service Date of Service: 08/22/25
--- NOTE | 2025-08-22 11:43 | P.HPHOSP_ITS ---
History of Present Illness Date of Service: 08/22/25 Chief Complaint: Shortness of breath 75 year old male with history of CHF, presenting to the ED for evaluation of worsening dyspnea on exertion. Patient reported dyspnea with activity even only taking a few steps and symptoms became progressively worse for the past four days relieved with rest. He also reports bilateral lower extremity edema at basline and takes Bumex at home. He reports a productive cough with white sputum. He denies fever, chills, chest pain or abdominal pain. In the ED BNP was 9661, normal troponin, elevated potassium of 5.3, UA positive. Patient received IV lasix, lokelma amd rocephin. He will be admitted for further management of acute CHF. Review of Systems 2 Review of Systems: Denies any recent fever chills or decrease in appetite respiratory See HPI cardiovascular denied chest pain gastrointestinal denies any dysphagia abdominal pain nausea vomiting or diarrhea genitourinary denies any dysuria frequency or hematuria musculoskeletal denies any joint pain or swelling neuropsych denies any weakness or seizures all other systems reviewed are negative [facility] Medical History Screening for lung cancer Pressure injury CKD stage 3b, GFR 30-44 ml/min COPD (chronic obstructive pulmonary disease) Morbid obesity with BMI of 40.0-44.9, adult Biventricular ICD (implantable cardioverter-defibrillator) in place Paroxysmal atrial flutter Coronary artery disease Ischemic cardiomyopathy Atrial flutter History of cardiac arrest Complete heart block Ventilator associated pneumonia STEMI (ST elevation myocardial infarction) Hypertension Hx of care home use of blood thinners Family History Mother No problems noted. Father No problems noted. Surgical History S/P ICD (internal cardiac defibrillator) procedure (04/2024) Social History Household Members: Spouse Household Members Other:: Housing: Apartment Are you a primary home health care case manager to a significant other at home: No Do you presently have visiting nurse or other home services: No Patient Tobacco Use Status: Former Tobacco user Tobacco use type: Cigarette e-Cigarette/Vaping Use: Never Used Second Hand Smoke Exposure: No Advance Directives: Yes Advance Directives on File: Yes Advance Directives Date on File: 09/12/24 service: Yes Current occupational status: retired Cognitive needs: No Hearing needs: No Vision needs: Yes (reading glasses) Meds Allergies Allergy/AdvReac Type Severity Reaction Status Date / Time No Known Allergies (No Known Allergy Verified 08/22/25 08:11 Allergies*) Active Medications: Current Medications Acetaminophen (Acetaminophen 325 Mg Tablet) 650 mg PO Q6H PRN PRN Reason: Pain, Mild 1-3,fever,headache Bumetanide (Bumetanide 1 Mg/4 Ml Vial) 3 mg IVPUSH BID@0900,1700 [facility]; Protocol Calcium Carbonate (Calcium Carbonate 750 Mg Tab.Chew) 750 mg PO Q4H PRN PRN Reason: Heartburn Furosemide (Furosemide 40 Mg/4 Ml Vial) 40 mg IVPUSH BID@0900,1800 [facility]; Protocol Ceftriaxone Sodium 1 gm/ (Sodium Chloride) 50 mls @ 100 mls/hr IV ONCE ONE Stop: 08/22/25 11:59 Magnesium Hydroxide (Milk Of Magnesia 30 Ml Oral.Susp) 30 ml PO DAILY PRN PRN Reason: Constipation Melatonin (Melatonin 3 Mg Tablet) 6 mg PO BEDTIME PRN PRN Reason: Insomnia Sodium Chloride (0.9 % Sodium Chloride Flush 3 Ml Syringe) 3 ml IVFLUSH QSHIFT [facility] Home Medications ?Medication ?Instructions ?Recorded ?Confirmed ?Last Taken ?Type melatonin 10 mg tablet 10 mg PO BEDTIME Sleep 01/2808/22/25 08/21/25 History Physical Exam 2 Vital Signs and Narrative: Vital Signs: Last Vital Signs Temp 97.1 F 08/22/25 10:45 Pulse 83 08/22/25 10:45 Resp 24 H 08/22/25 10:45 BP 142/67 H 08/22/25 10:45 Pulse Ox 95 08/22/25 10:45 O2 Del Method Room Air 08/22/25 10:45 BMI result Body Mass Index 40.4 Appearing in no acute distress head is normocephalic atraumatic eyes pupils are PERRLA sclera is anicteric mouth throat mucous membranes are intact and moist neck is supple no lymphadenopathy, no JVD noted lung sounds rales heart regular rate rhythm, clear S1, S2, nonpitting edema positive bowel sounds, abdomen is soft, nontender neuro patient is alert x3, no focal deficits Results Labs 08/22/25 09:30 08/22/25 09:30 Labs: Laboratory Results - last 24 hr 08/22/25 08/22/25 08/22/25 09:30 09:34 10:37 MCV 95.2 MCH 28.6 MCHC 30.0 L RDW 16.7 H Plt Count 135 L MPV 10.3 Immature Gran % (Auto) 0.7 H Neut % (Auto) 80.9 H Lymph % (Auto) 8.8 L [place] % (Auto) 7.8 Eos % (Auto) 0.9 Baso % (Auto) 0.9 Lymph # (Auto) 0.5 L [place] # (Auto) 0.4 Eos # (Auto) 0.1 Baso # (Auto) 0.1 Abs Immat Gran (auto) 0.04 H Absolute Neuts (auto) 4.3 Absolute Nucleated RBC 0.000 Nucleated RBC % (auto) 0.0 PT 19.2 H INR 1.6 H VBG pH 7.27 L VBG pCO2 51 VBG pO2 46 VBG HCO3 24 VBG O2 Saturation 49.0 VBG Base Excess -3.2 Anion Gap 17 Estim Creat Clear Calc 43.7 Estimated GFR 33 Random Glucose 93 Calcium 8.8 Total Bilirubin 0.6 AST 23 ALT 20 Alkaline Phosphatase 210 H Troponin I High Sens 29.5 NT-Pro-B Natriuret Pep 9661.2 H Total Protein 7.4 Albumin 4.1 Urine Color Yellow Urine Appearance Clear Urine pH 5.5 Ur Specific [place] 1.015 Urine Protein Trace Urine Glucose (UA) 500 H Urine Ketones Negative Urine Blood Trace H Urine Nitrite Positive H Ur Leukocyte Esterase Large (3+) H Urine RBC 0-2 Urine WBC >50 H Ur Squamous Epith Cells 0-2 Urine Bacteria 1+ Hyaline Casts 0-2 COVID-19 (JAZZY) Negative COVID-19 Clin Com See Note Influenza Type A (BUCKY) Negative Influenza Type B (BUCKY) Negative Influenza A & B Note See Note Imaging Radiologist's Impressions: Impressions Chest X-Ray 08/22/25 08:26 IMPRESSION: Probable CHF with bilateral pleural effusions, left greater than right. Electronically signed by: Lee Ann Dumont MD 08/22/2025 08:[address] [facility] [place] Assessment and Plan (1) Hypertension: Qualifiers: Hypertension type: unspecified Qualified Code(s): I10 - Essential (primary) hypertension Status: Acute Plan 75 year old man admitted with acute HFrEF exacerbation Acute HFrEF exacerbation ProBNP 9661.2 Will treat with Bumex 3mg IV per figure skater recommendation Monitor O2 and administer supplemental O2 as needed monitor on telemetry daily weights strict intake and output UTI Nitrate+, leukocytes+, Urine WBC >50 Will order Ceftriaxone Urine culture pending Hyperkalemia K 5.3 received Lokelma in the ED will order repeat Normocytic anemia HH 11.8 / 39.3 Close to baseline HTN Will continue home medications CKD3 BUN 35 Cr 1.99 Baseline Obestity class III. BMI 40.4 Discussed importance of weight management as this may be contributing to worsening of other comorbidities DVT prophylaxis with Eliquis Full code Quality Stroke Does the patient have a stroke diagnosis?: No VTE Prior VTE?: No VTE Risk Level:: Medical - moderate - high VTE Device Contraindication: Treatment Not Indicated VTE Drug Contraindication: N/A - Med Ordered
--- NOTE | 2025-08-22 12:24 | PHA.MEDREC ---
Addendum entered by Remigio Mitchell RPh 08/22/25 13:18: MED REC REVIEWED BY [facility] Original Note: Pharmacy Consult ? Medication Reconciliation Pharmacy has completed the medication reconciliation. Spoke with pt, who provided a medication list written up at home we used to complete the med rec. The patient was a poor historian and requested we contact his spouse for any questions we have. Spoke with Isha, who confirmed pt meds and able to confirm pt no longer taking Carvedilol, Bumetanine and Hydralazine, all of which were discontinued following a discharge from [facility] in the beginning on July.
[2025-08-22 14:55] LABS: Reflex Lactate? Lactic Acid Added
--- NOTE | 2025-08-22 16:00 | CA_ITS ---
Transthoracic Echocardiogram Patient (Last, First, Middle): Aaron Valverde D Gender: Male Date of : 1950 Age: 75 Procedure Date: 08/22/2025 Procedure Type: Transthoracic Echocardiogram Location: ER Height: 177.8 cm Weight: 127.46 kg BSA: 2.41 m2 Heart Rate: bpm BP: 142 / 67 mmHg Observer Helper: SB Referring MD: Angela Chance NP Symptoms: CHF Study Quality: Technically Difficult, contrast ECG Rhythm: Ventriculary paced rhythm Conclusions: - The left ventricular systolic function is severely decreased. The visually estimated ejection fraction is between 20-25%. - Evidence suggests grade II (moderate) diastolic dysfunction. - The apex, apical anterior, and apical inferior segments are akinetic. Wall motion assessment is suboptimal. - Valves not well visualized. Findings Procedure Information Contrast agent, definity, is being given per protocol without apparent complications. The study quality is limited by the patients inability to tolerate the test. Left Ventricle The left ventricle was not well visualized. The left ventricular systolic function is severely decreased. The visually estimated ejection fraction is between 20-25%. There is evidence of regional wall motion abnormalities. Evidence suggests grade II (moderate) diastolic dysfunction. Wall Motion Rest Echo Findings The apex, apical anterior, and apical inferior segments are akinetic. Right Ventricle Normal right ventricular cavity size. There is normal right ventricular systolic function. Atria The left atrium is severely dilated. Aortic Valve The aortic valve was not well visualized. Mitral Valve The mitral valve was not well visualized. There is mild mitral valve regurgitation. Pulmonic Valve The pulmonic valve is likely normal. Tricuspid Valve There is mild tricuspid valve regurgitation. Mild pulmonary hypertension is present. Great Vessels The asc aorta is normal in size. Venous The inferior vena cava is mildly dilated and collapses greater than 50% with inspiration. Pericardium/Pleural There is no evidence of pericardial effusion. Prior Study Comparison Changes noted compared to prior study dated: 09/13/2024. LVEF lower than previously reported. Measurements 2D Linear Measurements LVOT Diam: 2.10 3.0+(-)1.3 cm 2D Systolic Function EF 4C: 27.90 >55% Mitral Valve MV VTI: 0.34 MV Pk Erik: 1.77 MV Mn Erik: 0.95 MV Pk Grad: 13.00 MV Mn Grad: 5.00 MV Pk E: 1.47 MV PK A: 0.69 MV Decel Time: 175.00 E/A: 2.10 E'Medial: 4.35 E/E' Med: 33.80 PHT: 51.00 MVA PHT: 4.31 MVA Continuity: 1.67 Decel Sen[place]: 8.37 LVOT LVOT Pk Erik: 1.04 LVOT Mn Erik: 0.66 LVOT VTI: 0.16 LVOT Pk Grad: 4.00 LVOT Mn Grad: 2.00 LVOT Diam: 2.10 LVOT Area: 3.46 Diastolic Function MV Pk E: 1.47 MV Pk A: 0.69 E/A: 2.10 E'Medial: 4.35 E/E' Med: 33.80 Right Ventricle TAPSE (mm): 21.40 TVS' Erik: 13.20 Tricuspid Valve TR Pk Erik: 3.09 TR Pk Grad: 38.00 RA Press: 8.00 RVSP: 46.00 Great Vessels Aorta Sinus of Valsalva: 3.00 2.0-3.5 cm Ao Asc: 3.40 2.1-3.4 cm Pulmonary Valve PV Pk Erik: 0.67 Peak PV Grad: 2.00 Updated in Other Vendor System with Status of Final Aiden Cazares MD electronically signed on 08/22/2025 3:56:31 PM with status of Final
[2025-08-22 16:09] LABS: ~Lactic Acid-LAB USE ONLY 1.5 mmol/L (0.5-2.0)
[2025-08-22] MEDS: 0.9 % Sodium Chloride Flush 3 ML SYRINGE IVFLUSH (17:47)
[2025-08-22] MEDS: Bumetanide 1 MG/4 ML VIAL 3 MG IVPUSH (17:56)
[2025-08-22] MEDS: Albuterol/Iprat 2.5/0.5MG 3 ML AMPUL.NEB INHALE (17:58)
--- NOTE | 2025-08-22 18:05 | PC.NURSE ---
patient became increasingly sob/anxious. moved to bed 1 - duoneb provided and placed on 2L for comfort - 93% on room air. now 94-96%. states his breathing has been improving with the treatment and sitting upright off the edge of the bed. continues to stand with standby assist to use urinal.
[2025-08-22] MEDS: traZODone HCL 25 MG HALFTAB PO (20:44)
--- NOTE | 2025-08-22 20:46 | PC.NURSE ---
this RN assumed care of this pt @1900, ptr noted to be sitting up in chair watching television, appears to be in no apparent distress, connected to cardiac monitoring, medicated per MAR, call urbina within reach for safety
[2025-08-23] VITALS (10 sets, daily range): BP systolic 117–136; BP diastolic 57–81; PULSE 56–87; RESP 17–21; TEMP 36.1–36.5; O2SAT 93–96; BMI 38.1
[2025-08-23 04:10] LABS: Hematocrit 38.3 % (42.0-52.0); Hemoglobin 11.8 g/dl (14.0-18.0); Mean Corpuscular HGB Conc 30.8 g/dl (31.0-36.0); Mean Corpuscular Hemoglobin 28.8 pg (27.0-33.0); Mean Corpuscular Volume 93.4 fL (80.0-98.0); NRBC Abs Auto 0.000 X10*3/uL (0.0-0.012); NRBC Pct Auto 0.0 /100WBC (0.0-0.2); Platelet Count 132 X10*3/uL (160-400); Red Blood Count 4.10 X10*6/uL (4.60-5.80); White Blood Count 5.9 X10*3/uL (4.8-10.8)
[2025-08-23 04:48] LABS: Alanine Aminotransferase 19 U/L (0-40); Albumin Level 4.1 g/dL (3.5-5.0); Alkaline Phosphatase 193 U/L (39-117); Anion Gap 24 (12-20); Aspartate Amino Transferase 21 U/L (5-37); Blood Urea Nitrogen 41 mg/dL (9-16); Calcium 8.9 mg/dL (8.4-10.2); Carbon Dioxide 16 mmol/L (22-29); Chloride 107 mmol/L (96-108); Creatinine Clr Calc Pharmacy 37.4; Estimated Glomerular Filt Rate 28; Potassium 4.5 mmol/L (3.3-5.1); Sodium 142 mmol/L (135-145); Total Protein 7.3 g/dL (6.5-8.0)
--- NOTE | 2025-08-23 08:37 | HO.PM.IMPN ---
Subjective Subjective Date of Service: 08/23/25 Interval History: reports feeling better Review of Systems Review of Systems: Yes all other systems are reviewed and are negative Physical Exam Vital Signs: Vital Signs: Last Vital Signs Temp 97.2 F 08/23/25 05:39 Pulse 84 08/23/25 05:39 Resp 21 H 08/23/25 05:39 BP 117/57 L 08/23/25 05:39 Pulse Ox 93 08/23/25 05:39 O2 Del Method Room Air 08/23/25 05:39 O2 Flow Rate 1 08/22/25 23:21 BMI result Body Mass Index 40.4 GENERAL APPEARANCE: in no acute distress, morbidly obese. HEART: no murmurs, regular rate and rhythm. LUNGS: clear to auscultation bilaterally. ABDOMEN: soft, nontender. EXTREMITIES: 2+ pitting pedal edema. NEUROLOGIC: No gross deficits, AAO X 3 Objective Data Active Medications Acetaminophen (Acetaminophen 325 Mg Tablet) 650 mg PO Q6H PRN PRN Reason: Pain, Mild 1-3,fever,headache Albuterol Sulfate (Albuterol Sulfate 90 Mcg 8 Gm Inhaler) 1 puff INHALE QID PRN PRN Reason: shortness of breath or wheezing Albuterol/Ipratropium (Albuterol/Iprat 2.5/0.5mg 3 Ml Ampul.Neb) 3 ml INHALE Q6H PRN PRN Reason: for wheezing Last Admin: 08/22/25 17:58 Dose: 3 ml Documented By: CLARISSA Amiodarone HCl (Amiodarone Hcl 200 Mg Tablet) 200 mg PO DAILY [facility] Apixaban (Apixaban 5 Mg Tablet) 5 mg PO BID [facility] Last Admin: 08/22/25 20:44 Dose: 5 mg Documented By: LINDA Atorvastatin Calcium (Atorvastatin Calcium 40 Mg Tablet) 40 mg PO BEDTIME [facility] Last Admin: 08/22/25 20:44 Dose: 40 mg Documented By: LINDA Bumetanide (Bumetanide 1 Mg/4 Ml Vial) 3 mg IVPUSH BID@0900,1700 [facility]; Protocol Last Admin: 08/22/25 17:56 Dose: 3 mg Documented By: CLARISSA Calcium Carbonate (Calcium Carbonate 750 Mg Tab.Chew) 750 mg PO Q4H PRN PRN Reason: Heartburn Clopidogrel Bisulfate (Clopidogrel Bisulfate 75 Mg Tablet) 75 mg PO DAILY [facility] Famotidine (Famotidine 20 Mg Tablet) 20 mg PO DAILY [facility] Isosorbide Mononitrate (Isosorbide Mononitrate 30 Mg Tab.Er.24h) 30 mg PO DAILY [facility]; Protocol Magnesium Hydroxide (Milk Of Magnesia 30 Ml Oral.Susp) 30 ml PO DAILY PRN PRN Reason: Constipation Melatonin (Melatonin 3 Mg Tablet) 9 mg PO BEDTIME [facility] Last Admin: 08/22/25 20:44 Dose: 9 mg Documented By: LINDA Metoprolol Succinate (Metoprolol Succinate Er 25 Mg Tab.Er.24h) 25 mg PO DAILY [facility]; Protocol Sodium Chloride (0.9 % Sodium Chloride Flush 3 Ml Syringe) 3 ml IVFLUSH QSHIFT [facility] Last Admin: 08/23/25 00:00 Dose: 3 ml Documented By: LINDA Trazodone HCl (Trazodone Hcl 25 Mg Halftab) 25 mg PO BEDTIME [facility] Last Admin: 08/22/25 20:44 Dose: 25 mg Documented By: LINDA Labs 08/23/25 03:20 08/23/25 03:20 Labs: Laboratory Results - last 24 hr 08/22/25 08/22/25 08/22/25 09:30 09:34 10:37 MCV 95.2 MCH 28.6 MCHC 30.0 L RDW 16.7 H Plt Count 135 L MPV 10.3 Immature Gran % (Auto) 0.7 H Neut % (Auto) 80.9 H Lymph % (Auto) 8.8 L [place] % (Auto) 7.8 Eos % (Auto) 0.9 Baso % (Auto) 0.9 Lymph # (Auto) 0.5 L [place] # (Auto) 0.4 Eos # (Auto) 0.1 Baso # (Auto) 0.1 Abs Immat Gran (auto) 0.04 H Absolute Neuts (auto) 4.3 Absolute Nucleated RBC 0.000 Nucleated RBC % (auto) 0.0 PT 19.2 H INR 1.6 H VBG pH 7.27 L VBG pCO2 51 VBG pO2 46 VBG HCO3 24 VBG O2 Saturation 49.0 VBG Base Excess -3.2 Anion Gap 17 Estim Creat Clear Calc 43.7 Estimated GFR 33 Random Glucose 93 Lactic Acid Lactic Acid F/U @ 2Hr Calcium 8.8 Total Bilirubin 0.6 AST 23 ALT 20 Alkaline Phosphatase 210 H Troponin I High Sens 29.5 NT-Pro-B Natriuret Pep 9661.2 H Total Protein 7.4 Albumin 4.1 Urine Color Yellow Urine Appearance Clear Urine pH 5.5 Ur Specific [place] 1.015 Urine Protein Trace Urine Glucose (UA) 500 H Urine Ketones Negative Urine Blood Trace H Urine Nitrite Positive H Ur Leukocyte Esterase Large (3+) H Urine RBC 0-2 Urine WBC >50 H Ur Squamous Epith Cells 0-2 Urine Bacteria 1+ Hyaline Casts 0-2 COVID-19 (JAZZY) Negative COVID-19 Clin Com See Note Influenza Type A (BUCKY) Negative Influenza Type B (BUCKY) Negative Influenza A & B Note See Note 08/22/25 08/22/25 08/23/25 12:48 15:35 03:20 MCV 93.4 MCH 28.8 MCHC 30.8 L RDW 16.4 H Plt Count 132 L MPV 9.7 Immature Gran % (Auto) Neut % (Auto) Lymph % (Auto) [place] % (Auto) Eos % (Auto) Baso % (Auto) Lymph # (Auto) [place] # (Auto) Eos # (Auto) Baso # (Auto) Abs Immat Gran (auto) Absolute Neuts (auto) Absolute Nucleated RBC 0.000 Nucleated RBC % (auto) 0.0 PT INR VBG pH VBG pCO2 VBG pO2 VBG HCO3 VBG O2 Saturation VBG Base Excess Anion Gap 24 H Estim Creat Clear Calc 37.4 Estimated GFR 28 Random Glucose 88 Lactic Acid 2.7 H* Lactic Acid F/U @ 2Hr 1.5 Calcium 8.9 Total Bilirubin 0.8 AST 21 ALT 19 Alkaline Phosphatase 193 H Troponin I High Sens NT-Pro-B Natriuret Pep Total Protein 7.3 Albumin 4.1 Urine Color Urine Appearance Urine pH Ur Specific [place] Urine Protein Urine Glucose (UA) Urine Ketones Urine Blood Urine Nitrite Ur Leukocyte Esterase Urine RBC Urine WBC Ur Squamous Epith Cells Urine Bacteria Hyaline Casts COVID-19 (JAZZY) COVID-19 Clin Com Influenza Type A (BUCKY) Influenza Type B (BUCKY) Influenza A & B Note Assessment and Plan (1) Acute on chronic HFrEF (heart failure with reduced ejection fraction): Status: Acute Plan 75 year old male with pmhx significant for morbid obesity,COPD, HFrEF (20-25%), ischemic cardiomyopathy, CO 2 mo s/p stent placement, paroxysmal atrial fibrillation with ICD in place, stage 3 CKD, HTN presents to the ED today for evaluation of increasing shortness of breath #AE HFrEF (20-25%), #ischemic cardiomyopathy, #CO 2 mo s/p stent placement, proximal LAD stent placement #paroxysmal atrial fibrillation with ICD in place #failed recent cardiac rehab #appears to have recent CO in Jun 2025 per chart review Cardiology consulted in ED POA and currently following echocardiogram, LVEF is 20-25%. Moderate diastolic dysfunction. Wall motion abnormalities related to underlying coronary disease. Similar findings and recent echocardiogram from [facility] [place] Cont IV bumex that was initiated in ED, will switch to po when HF resolves Cont GDMT as tolerated NT pro BNP 9661. High sensitivity troponins are within range. Overall, ischemic cardiomyopathy/Bi V ICD; acute on chronic congestive heart failure. Continue IV diuretics. Per input output charting,-3.6 L. Continue Farxiga. He is on Plavix and Eliquis and that can be continued. #Possible UTI vs sepsis cont ceftriaxone, deescalate based on abx #CKD stage 3b, GFR 30-44 ml/min #BARB on CKD3 pre-renal and renal daily labs limit nephrotoxins #COPD (chronic obstructive pulmonary disease) #Morbid obesity with BMI of 40.0-44.9, adult Dietary / nutritional consult low salt diet #hyperk resolved post lokelma daily bmp PT needed due to deconditioning will need 2-3 days to achieve adequate diuresis This note is constructed using voice recognition software. While every effort has been made to ensure accuracy, air brake man errors may have been included. Quality Stroke Does the patient have a stroke diagnosis?: No VTE Prior VTE?: No VTE Risk Level:: Medical - moderate - high VTE Device Contraindication: Treatment Not Indicated VTE Drug Contraindication: N/A - Med Ordered
--- NOTE | 2025-08-23 09:40 | P.PNCA_ITS ---
Subjective Subjective Date of Service: 08/23/25 Interval history: Seen and examined patient. He states that he feels tired but otherwise okay. Has been diuresing. Shortness of breath is slightly better. He still has the leg swelling. Review of Systems Review of Systems Yes all other systems are reviewed and are negative Constitutional: Reports as per HPI and Reports no additional constitutional complaints Eyes: Reports as per HPI and Denies no additional eye complaints Denies system reviewed and no additional complaints, except as documented and Reports as per HPI Cardiovascular: Reports as per HPI, Reports no additional cardiovascular complaints, Denies acrocyanosis, Denies cool extremities, Denies chest pain, Denies leg edema, Denies lightheadedness, Denies palpitations and Reports dyspnea Respiratory: Reports as per HPI, Denies no additional respiratory complaints and Reports dyspnea Gastrointestinal: Reports as per HPI and Denies no additional gastrointestinal complaints Genitourinary: Reports no additional male genitourinary complaints and Reports as per HPI Musculoskeletal: Reports no additional musculoskeletal complaints and Reports as per HPI Skin/Breast: Reports system reviewed and no additional complaints, except as docu Reports system reviewed and no additional complaints, except as documented and Reports as per HPI Psychiatric: Reports no additional psychiatric complaints and Reports as per HPI Endocrine: Reports no additional endocrine complaints, Reports as per HPI and Denies palpitations Hematologic/Lymphatic: Reports no additional hematologic/lymphatic complaints and Reports as per HPI Allergic/Immunologic: Reports no additional allergic/immunologic complaints and Reports as per HPI Physical Exam Vital Signs: Last Vital Signs Temp 97.2 F 08/23/25 05:39 Pulse 84 08/23/25 05:39 Resp 21 H 08/23/25 05:39 BP 117/57 L 08/23/25 05:39 Pulse Ox 93 08/23/25 05:39 O2 Del Method Room Air 08/23/25 05:39 O2 Flow Rate 1 08/22/25 23:21 BMI result Body Mass Index 40.4 Const General: comfortable and no acute distress Orientation/consciousness: patient oriented x3 HEENT Other: Unremarkable Head: Yes normal to inspection Neck Neck: Yes normal visual inspection Chest Chest palpation & inspection: normal inspection of the chest Resp Auscultation: clear to auscultation bilaterally Cardio Palpation: normal PMI Heart sounds: S1 normal heart sound present, S2 normal heart sound present, no gallops, no murmurs and no rubs GI Palpation (GI): Soft to palpation Back/Spine/Pelvis Other: unremarkable Skin General skin exam: no rashes or lesions noted Neuro General: patient oriented x3 Extrem Other: 2+ swelling General: Yes normal to inspection Psych Mental Status: mental status grossly normal Objective Labs and Meds 08/23/25 03:20 08/23/25 03:20 Lab results: Laboratory Results - last 24 hr 08/22/25 08/22/25 08/22/25 09:30 10:37 12:48 WBC 5.4 RBC 4.13 L Hgb 11.8 L Hct 39.3 L MCV 95.2 MCH 28.6 MCHC 30.0 L RDW 16.7 H Plt Count 135 L MPV 10.3 Immature Gran % (Auto) 0.7 H Neut % (Auto) 80.9 H Lymph % (Auto) 8.8 L [place] % (Auto) 7.8 Eos % (Auto) 0.9 Baso % (Auto) 0.9 Lymph # (Auto) 0.5 L [place] # (Auto) 0.4 Eos # (Auto) 0.1 Baso # (Auto) 0.1 Abs Immat Gran (auto) 0.04 H Absolute Neuts (auto) 4.3 Absolute Nucleated RBC 0.000 Nucleated RBC % (auto) 0.0 PT 19.2 H INR 1.6 H Sodium 140 Potassium 5.3 H D Chloride 111 H Carbon Dioxide 17 L Anion Gap 17 BUN 35 H Creatinine 1.99 H Estim Creat Clear Calc 43.7 Estimated GFR 33 Random Glucose 93 Lactic Acid 2.7 H* Lactic Acid F/U @ 2Hr Calcium 8.8 Total Bilirubin 0.6 AST 23 ALT 20 Alkaline Phosphatase 210 H Troponin I High Sens 29.5 NT-Pro-B Natriuret Pep 9661.2 H Total Protein 7.4 Albumin 4.1 Urine Color Yellow Urine Appearance Clear Urine pH 5.5 Ur Specific [place] 1.015 Urine Protein Trace Urine Glucose (UA) 500 H Urine Ketones Negative Urine Blood Trace H Urine Nitrite Positive H Ur Leukocyte Esterase Large (3+) H Urine RBC 0-2 Urine WBC >50 H Ur Squamous Epith Cells 0-2 Urine Bacteria 1+ Hyaline Casts 0-2 COVID-19 (JAZZY) Negative COVID-19 Clin Com See Note Influenza Type A (BUCKY) Negative Influenza Type B (BUCKY) Negative Influenza A & B Note See Note 08/22/25 08/23/25 15:35 03:20 WBC 5.9 RBC 4.10 L Hgb 11.8 L Hct 38.3 L MCV 93.4 MCH 28.8 MCHC 30.8 L RDW 16.4 H Plt Count 132 L MPV 9.7 Immature Gran % (Auto) Neut % (Auto) Lymph % (Auto) [place] % (Auto) Eos % (Auto) Baso % (Auto) Lymph # (Auto) [place] # (Auto) Eos # (Auto) Baso # (Auto) Abs Immat Gran (auto) Absolute Neuts (auto) Absolute Nucleated RBC 0.000 Nucleated RBC % (auto) 0.0 PT INR Sodium 142 Potassium 4.5 Chloride 107 Carbon Dioxide 16 L Anion Gap 24 H BUN 41 H Creatinine 2.32 H Estim Creat Clear Calc 37.4 Estimated GFR 28 Random Glucose 88 Lactic Acid Lactic Acid F/U @ 2Hr 1.5 Calcium 8.9 Total Bilirubin 0.8 AST 21 ALT 19 Alkaline Phosphatase 193 H Troponin I High Sens NT-Pro-B Natriuret Pep Total Protein 7.3 Albumin 4.1 Urine Color Urine Appearance Urine pH Ur Specific [place] Urine Protein Urine Glucose (UA) Urine Ketones Urine Blood Urine Nitrite Ur Leukocyte Esterase Urine RBC Urine WBC Ur Squamous Epith Cells Urine Bacteria Hyaline Casts COVID-19 (JAZZY) COVID-19 Clin Com Influenza Type A (BUCKY) Influenza Type B (BUCKY) Influenza A & B Note Progress Note: A&P Assessment and plan (1) Acute on chronic combined systolic and diastolic ACC/AHA stage C congestive heart failure: Status: Acute Plan In the echocardiogram, LVEF is 20-25%. Moderate diastolic dysfunction. Wall motion abnormalities related to underlying coronary disease. Similar findings and recent echocardiogram from [facility]. Per recent cardiac catheterization, status post PCI to proximal LAD. Currently, chest x-ray with probable CHF/bilateral pleural effusions, left > right. Chronic kidney insufficiency with creatinine slightly higher than before. NT pro BNP 9661. High sensitivity troponins are within range. Overall, ischemic cardiomyopathy/Bi V ICD; acute on chronic congestive heart failure. Continue IV diuretics. Per input output charting,-3.6 L. Continue Farxiga. He is on Plavix and Eliquis and that can be continued. We will follow up with you. Time Spent With Patient Time: Total time managing care of this patient today ____ minutes. Progress Note: Quality Stroke Does the patient have a stroke diagnosis?: No Procedures Date of Service Date of Service: 08/23/25
[2025-08-23] MEDS: Bumetanide 1 MG/4 ML VIAL 3 MG IVPUSH ×2 (09:55→16:51)
[2025-08-23] MEDS: Metoprolol Succinate ER 25 MG TAB.ER.24H PO (09:56)
--- NOTE | 2025-08-23 09:58 | PC.NURSE ---
Pt aqxox3. unlabored at rest in bed. LS dim. no crackles/wheezing. skin pwdd. NSR with right bundle on monitor. Awaits bed. pitting edema 2+ BLE. ate well.
--- NOTE | 2025-08-23 10:32 | HO.NURTONUR ---
Pt with Hx CHF and COPD. Not on home O2. Came WITH segura AND TACHIPNIC AT rest. Now feeling better. Has recieved Bumex for BNP over 900. Has BLE pitting edema. LS CTA. Axox3. now is unlabored at rest and no longer needs O2. Positive for UTI. initial lactic was 2.7 repeat was 1.5.
--- NOTE | 2025-08-23 10:36 | PC.NURSE ---
Update to , Amber, via phone. Plans to visit tomorrow.
--- NOTE | 2025-08-23 11:19 | MHC.CM.PN ---
IMM 08/23/25, Pt lives with his , PCP is Chris Espino MD, HCP is on file and confirmed: his [facility]. Pt. does not have home health services, he has a cane and w/c for DME. to transport home at DC, DCP: home with services, CM to follow for DC needs.
[2025-08-23] MEDS: 0.9 % Sodium Chloride Flush 3 ML SYRINGE IVFLUSH ×3 (16:52→20:44)
[2025-08-23] MEDS: traZODone HCL 25 MG HALFTAB PO (20:42)
[2025-08-24] VITALS (7 sets, daily range): BP systolic 111–134; BP diastolic 55–69; PULSE 72–77; RESP 16–22; TEMP 36.1–36.5; O2SAT 92–96
--- NOTE | 2025-08-24 07:19 | HO.PM.IMPN ---
Subjective Subjective Date of Service: 08/24/25 Interval History: reports feeling better Review of Systems Review of Systems: Yes all other systems are reviewed and are negative Physical Exam Vital Signs: Vital Signs: Last Vital Signs Temp 97.7 F 08/24/25 03:53 Pulse 77 08/24/25 03:53 Resp 18 08/24/25 03:53 BP 134/69 08/24/25 03:53 Pulse Ox 92 08/24/25 03:53 O2 Del Method Room Air 08/24/25 03:53 O2 Flow Rate 1 08/22/25 23:21 BMI result Body Mass Index 38.1 GENERAL APPEARANCE: in no acute distress, morbidly obese. HEART: no murmurs, regular rate and rhythm. LUNGS: clear to auscultation bilaterally. ABDOMEN: soft, nontender. EXTREMITIES: 2+ pitting pedal edema. NEUROLOGIC: No gross deficits, AAO X 3 Objective Data Active Medications Acetaminophen (Acetaminophen 325 Mg Tablet) 650 mg PO Q6H PRN PRN Reason: Pain, Mild 1-3,fever,headache Albuterol Sulfate (Albuterol Sulfate 90 Mcg 8 Gm Inhaler) 1 puff INHALE QID PRN PRN Reason: shortness of breath or wheezing Albuterol/Ipratropium (Albuterol/Iprat 2.5/0.5mg 3 Ml Ampul.Neb) 3 ml INHALE Q6H PRN PRN Reason: for wheezing Last Admin: 08/22/25 17:58 Dose: 3 ml Documented By: CLARISSA Amiodarone HCl (Amiodarone Hcl 200 Mg Tablet) 200 mg PO DAILY [facility] Last Admin: 08/23/25 09:55 Dose: 200 mg Documented By: BENOIT Apixaban (Apixaban 5 Mg Tablet) 5 mg PO BID [facility] Last Admin: 08/23/25 20:42 Dose: 5 mg Documented By: FIDEL Atorvastatin Calcium (Atorvastatin Calcium 40 Mg Tablet) 40 mg PO BEDTIME [facility] Last Admin: 08/23/25 20:42 Dose: 40 mg Documented By: FIDEL Bumetanide (Bumetanide 1 Mg/4 Ml Vial) 3 mg IVPUSH BID@0900,1700 [facility]; Protocol Last Admin: 08/23/25 16:51 Dose: 3 mg Documented By: STEVEN Calcium Carbonate (Calcium Carbonate 750 Mg Tab.Chew) 750 mg PO Q4H PRN PRN Reason: Heartburn Clopidogrel Bisulfate (Clopidogrel Bisulfate 75 Mg Tablet) 75 mg PO DAILY [facility] Last Admin: 08/23/25 09:56 Dose: 75 mg Documented By: BENOIT Famotidine (Famotidine 20 Mg Tablet) 20 mg PO DAILY [facility] Last Admin: 08/23/25 09:55 Dose: 20 mg Documented By: BENOIT Isosorbide Mononitrate (Isosorbide Mononitrate 30 Mg Tab.Er.24h) 30 mg PO DAILY [facility]; Protocol Last Admin: 08/23/25 09:56 Dose: 30 mg Documented By: BENOIT Magnesium Hydroxide (Milk Of Magnesia 30 Ml Oral.Susp) 30 ml PO DAILY PRN PRN Reason: Constipation Melatonin (Melatonin 3 Mg Tablet) 9 mg PO BEDTIME [facility] Last Admin: 08/23/25 20:42 Dose: 9 mg Documented By: FIDEL Metoprolol Succinate (Metoprolol Succinate Er 25 Mg Tab.Er.24h) 25 mg PO DAILY [facility]; Protocol Last Admin: 08/23/25 09:56 Dose: 25 mg Documented By: BENOIT Sodium Chloride (0.9 % Sodium Chloride Flush 3 Ml Syringe) 3 ml IVFLUSH QSHIFT [facility] Last Admin: 08/23/25 20:44 Dose: 3 ml Documented By: FIDEL Trazodone HCl (Trazodone Hcl 25 Mg Halftab) 25 mg PO BEDTIME [facility] Last Admin: 08/23/25 20:42 Dose: 25 mg Documented By: FIDEL Labs 08/24/25 06:51 08/24/25 06:52 Microbiology Microbiology Results: Microbiology 08/22/25 09:30 Blood Culture - Preliminary Blood - Venous No growth after 24 hours. 08/22/25 12:48 Blood Culture - Preliminary Blood - Venous No growth after 24 hours. 08/22/25 02:39 Urine Culture - Preliminary Urine clean catch - Clean Catch Midstream Culture in progress. Assessment and Plan (1) Acute on chronic HFrEF (heart failure with reduced ejection fraction): Status: Acute Plan 75 year old male with pmhx significant for morbid obesity,COPD, HFrEF (20-25%), ischemic cardiomyopathy, MD 2 mo s/p stent placement, paroxysmal atrial fibrillation with ICD in place, stage 3 CKD, HTN presents to the ED today for evaluation of increasing shortness of breath #AE HFrEF (20-25%), #ischemic cardiomyopathy, #MD 2 mo s/p stent placement, proximal LAD stent placement #paroxysmal atrial fibrillation with ICD in place #failed recent cardiac rehab #appears to have recent MD in Jun 2025 per chart review Cardiology consulted in ED POA and currently following echocardiogram, LVEF is 20-25%. Moderate diastolic dysfunction. Wall motion abnormalities related to underlying coronary disease. Similar findings and recent echocardiogram from [facility] switch to po Bumex 3mg po bid Cont GDMT as tolerated NT pro BNP 9661. High sensitivity troponins are within range. Overall, ischemic cardiomyopathy/Bi V ICD; acute on chronic congestive heart failure. Continue IV diuretics. Per input output charting,-3.6 L. Continue Farxiga. He is on Plavix and Eliquis and that can be continued. #Possible UTI vs sepsis cont ceftriaxone, deescalate based on C/S #CKD stage 3b, GFR 30-44 ml/min #BARB on CKD3 pre-renal and renal daily labs limit nephrotoxins #COPD (chronic obstructive pulmonary disease) #Morbid obesity with BMI of 40.0-44.9, adult Dietary / nutritional consult low salt diet #hyperk resolved post lokelma daily bmp PT needed due to deconditioning will need 2-3 days to achieve adequate diuresis This note is constructed using voice recognition software. While every effort has been made to ensure accuracy, campground attendant errors may have been included. Quality Stroke Does the patient have a stroke diagnosis?: No VTE Prior VTE?: No VTE Risk Level:: Medical - moderate - high VTE Device Contraindication: Treatment Not Indicated VTE Drug Contraindication: N/A - Med Ordered
[2025-08-24 07:29] LABS: MANUAL DIFF FLAG NO
[2025-08-24 07:45] LABS: Hematocrit 38.3 % (42.0-52.0); Hemoglobin 11.8 g/dl (14.0-18.0); Imm Gran Abs Auto 0.04 X10*3/uL (0.00-0.03); Imm Gran Pct Auto 0.8 % (0.0-0.4); Lymphocytes Absolute Auto 0.7 X10*3/uL (1.2-4.9); Mean Corpuscular HGB Conc 30.8 g/dl (31.0-36.0); Mean Corpuscular Hemoglobin 28.2 pg (27.0-33.0); Mean Corpuscular Volume 91.6 fL (80.0-98.0); NRBC Abs Auto 0.000 X10*3/uL (0.0-0.012); NRBC Pct Auto 0.0 /100WBC (0.0-0.2); Platelet Count 136 X10*3/uL (160-400); Red Blood Count 4.18 X10*6/uL (4.60-5.80); White Blood Count 4.8 X10*3/uL (4.8-10.8)
[2025-08-24 08:06] LABS: Alanine Aminotransferase 19 U/L (0-40); Albumin Level 3.8 g/dL (3.5-5.0); Alkaline Phosphatase 174 U/L (39-117); Anion Gap 21 (12-20); Aspartate Amino Transferase 20 U/L (5-37); Blood Urea Nitrogen 41 mg/dL (9-16); Calcium 8.5 mg/dL (8.4-10.2); Carbon Dioxide 18 mmol/L (22-29); Chloride 107 mmol/L (96-108); Creatinine Clr Calc Pharmacy 34.5; Estimated Glomerular Filt Rate 26; Magnesium 2.1 mg/dL (1.6-2.6); Potassium 4.3 mmol/L (3.3-5.1); Sodium 142 mmol/L (135-145); Total Protein 6.7 g/dL (6.5-8.0)
[2025-08-24] MEDS: Bumetanide 1 MG/4 ML VIAL 3 MG IVPUSH (09:09)
[2025-08-24] MEDS: 0.9 % Sodium Chloride Flush 3 ML SYRINGE IVFLUSH ×3 (09:12→20:06)
[2025-08-24] MEDS: Metoprolol Succinate ER 25 MG TAB.ER.24H PO (09:14)
--- NOTE | 2025-08-24 11:13 | P.PNCA_ITS ---
Subjective Subjective Date of Service: 08/24/25 <Aiden Cazares MD - Last Filed: 08/24/25 16:37> 08/24/25 <Ivy Yan MD - Last Filed: 08/24/25 14:39> Interval history: Seen this morning, around 09:00. Patient stated that he was doing better. His breathing was improving. Leg swelling is also better. <Aiden Cazares MD - Last Filed: 08/24/25 16:37> Review of Systems Review of Systems Yes all other systems are reviewed and are negative <Aiden Cazares MD - Last Filed: 08/24/25 16:37> Constitutional: Reports as per HPI and Reports no additional constitutional complaints < Aiden Cazares MD - Last Filed: 08/24/25 16:37> Eyes: Reports as per HPI and Denies no additional eye complaints <Aiden Cazares MD - Last Filed: 08/24/25 16:37> Denies system reviewed and no additional complaints, except as documented and Reports as per HPI <Aiden Cazares MD - Last Filed: 08/24/25 16:37> Cardiovascular: Reports as per HPI, Reports no additional cardiovascular complaints, Denies acrocyanosis, Denies cool extremities, Denies chest pain, Denies leg edema, Denies lightheadedness, Denies palpitations and Denies dyspnea <Aiden Cazares MD - Last Filed: 08/24/25 16:37> Respiratory: Reports as per HPI, Denies no additional respiratory complaints and Denies dyspnea <Aiden Cazares MD - Last Filed: 08/24/25 16:37> Gastrointestinal: Reports as per HPI and Denies no additional gastrointestinal complaints < Aiden Cazares MD - Last Filed: 08/24/25 16:37> Genitourinary: Reports no additional male genitourinary complaints and Reports as per HPI <Aiden aCzares MD - Last Filed: 08/24/25 16:37> Musculoskeletal: Reports no additional musculoskeletal complaints and Reports as per HPI < Aiden Cazares MD - Last Filed: 08/24/25 16:37> Skin/Breast: Reports system reviewed and no additional complaints, except as docu < Aiden Cazares MD - Last Filed: 08/24/25 16:37> Reports system reviewed and no additional complaints, except as documented and Reports as per HPI <Aiden Cazares MD - Last Filed: 08/24/25 16:37> Psychiatric: Reports no additional psychiatric complaints and Reports as per HPI < Aiden Cazares MD - Last Filed: 08/24/25 16:37> Endocrine: Reports no additional endocrine complaints, Reports as per HPI and Denies palpitations <Aiden Cazares MD - Last Filed: 08/24/25 16:37> Hematologic/Lymphatic: Reports no additional hematologic/lymphatic complaints and Reports as per HPI <Aiden Cazares MD - Last Filed: 08/24/25 16:37> Allergic/Immunologic: Reports no additional allergic/immunologic complaints and Reports as per HPI <Aiden Cazares MD - Last Filed: 08/24/25 16:37> Physical Exam Vital Signs: Last Vital Signs Temp 97.5 F 08/24/25 07:30 Pulse 73 08/24/25 07:30 Resp 22 H 08/24/25 07:30 BP 112/55 L 08/24/25 07:30 Pulse Ox 93 08/24/25 10:25 O2 Del Method Room Air 08/24/25 07:30 O2 Flow Rate 1 08/22/25 23:21 BMI result Body Mass Index 38.1 <Aiden Cazares MD - Last Filed: 08/24/25 16:37> Const General: comfortable and no acute distress <Aiden Cazares MD - Last Filed: 08/24/25 16:37> Orientation/consciousness: patient oriented x3 <Aiden Cazares MD - Last Filed: 08/24/25 16:37> HEENT Other: Unremarkable <Aiden Cazares MD - Last Filed: 08/24/25 16:37> Head: Yes normal to inspection <Aiden Cazares MD - Last Filed: 08/24/25 16:37> Neck Neck: Yes normal visual inspection <Aiden Cazares MD - Last Filed: 08/24/25 16:37> Chest Chest palpation & inspection: normal inspection of the chest <Aiden Cazares MD - Last Filed: 08/24/25 16:37> Resp Auscultation: clear to auscultation bilaterally <Aiden Cazares MD - Last Filed: 08/24/25 16:37> Cardio Palpation: normal PMI <Aiden Cazares MD - Last Filed: 08/24/25 16:37> Heart sounds: S1 normal heart sound present, S2 normal heart sound present, no gallops, no murmurs and no rubs <Aiden Cazares MD - Last Filed: 08/24/25 16:37> GI Palpation (GI): Soft to palpation <Aiden Cazares MD - Last Filed: 08/24/25 16:37> Back/Spine/Pelvis Other: unremarkable <Aiden Cazares MD - Last Filed: 08/24/25 16:37> Skin General skin exam: no rashes or lesions noted <Aiden Cazares MD - Last Filed: 08/24/25 16:37> Neuro General: patient oriented x3 <Aiden Cazares MD - Last Filed: 08/24/25 16:37> Extrem Other: 1+ swelling <Aiden Cazares MD - Last Filed: 08/24/25 16:37> General: Yes normal to inspection <Aiden Cazares MD - Last Filed: 08/24/25 16:37> Psych Mental Status: mental status grossly normal <Aiden Cazares MD - Last Filed: 08/24/25 16:37> Objective Labs and Meds Result diagrams: 08/24/25 06:51 08/24/25 06:52 <Aiden Cazares MD - Last Filed: 08/24/25 16:37> Lab results: Laboratory Results - last 24 hr 08/24/25 08/24/25 06:51 06:52 WBC 4.8 RBC 4.18 L Hgb 11.8 L Hct 38.3 L MCV 91.6 MCH 28.2 MCHC 30.8 L RDW 16.6 H Plt Count 136 L MPV 10.1 Immature Gran % (Auto) 0.8 H Neut % (Auto) 72.7 Lymph % (Auto) 13.9 L [place] % (Auto) 10.5 Eos % (Auto) 1.3 Baso % (Auto) 0.8 Lymph # (Auto) 0.7 L [place] # (Auto) 0.5 Eos # (Auto) 0.1 Baso # (Auto) 0.0 Abs Immat Gran (auto) 0.04 H Absolute Neuts (auto) 3.5 Absolute Nucleated RBC 0.000 Nucleated RBC % (auto) 0.0 Sodium 142 Potassium 4.3 Chloride 107 Carbon Dioxide 18 L Anion Gap 21 H BUN 41 H Creatinine 2.44 H Estim Creat Clear Calc 34.5 Estimated GFR 26 Random Glucose 93 Calcium 8.5 Magnesium 2.1 Total Bilirubin 0.7 AST 20 ALT 19 Alkaline Phosphatase 174 H Total Protein 6.7 Albumin 3.8 <Aiden Cazares MD - Last Filed: 08/24/25 16:37> Progress Note: A&P Assessment and plan (1) Acute on chronic combined systolic and diastolic ACC/AHA stage C congestive heart failure: Status: Acute <Aiden Cazares MD - Last Filed: 08/24/25 16:37> Assessment and Plan: In the echocardiogram, LVEF is 20-25%. Moderate diastolic dysfunction. Wall motion abnormalities related to underlying coronary disease. Similar findings and recent echocardiogram from [facility]. Per recent cardiac catheterization, status post PCI to proximal LAD. Currently, chest x-ray with probable CHF/bilateral pleural effusions, left > right. Chronic kidney insufficiency with creatinine slightly higher than before. NT pro BNP 9661. High sensitivity troponins are within range. Overall, ischemic cardiomyopathy/Bi V ICD; acute on chronic congestive heart failure. He has been on IV Bumex. So far, negative 4.3 L. total output about 7.1L We can change to oral diuretics. Continue Farxiga. He is on Plavix and Eliquis and that can be continued. Need to discuss with family about home medication compliance. <Aiden Cazares MD - Last Filed: 08/24/25 16:37> Time Spent With Patient Time: Total time managing care of this patient today ____ minutes. <Aiden Cazares MD - Last Filed: 08/24/25 16:37> Progress Note: Quality Stroke Does the patient have a stroke diagnosis?: No <Aiden Cazares MD - Last Filed: 08/24/25 16:37> Procedures Date of Service Date of Service: 08/24/25 <Aiden Cazares MD - Last Filed: 08/24/25 16:37> 08/24/25 <Ivy Yan MD - Last Filed: 08/24/25 14:39>
[2025-08-24] MEDS: traZODone HCL 25 MG HALFTAB PO (20:05)
[2025-08-25 03:06] VITALS: BP 127/67; PULSE 71; RESP 17; TEMP 36.4; O2SAT 94
[2025-08-25 07:00] LABS: MANUAL DIFF FLAG NO
[2025-08-25 07:01] LABS: Hematocrit 37.1 % (42.0-52.0); Hemoglobin 11.8 g/dl (14.0-18.0); Imm Gran Abs Auto 0.03 X10*3/uL (0.00-0.03); Imm Gran Pct Auto 0.6 % (0.0-0.4); Lymphocytes Absolute Auto 0.6 X10*3/uL (1.2-4.9); Mean Corpuscular HGB Conc 31.8 g/dl (31.0-36.0); Mean Corpuscular Hemoglobin 28.8 pg (27.0-33.0); Mean Corpuscular Volume 90.5 fL (80.0-98.0); NRBC Abs Auto 0.000 X10*3/uL (0.0-0.012); NRBC Pct Auto 0.0 /100WBC (0.0-0.2); Platelet Count 127 X10*3/uL (160-400); Red Blood Count 4.10 X10*6/uL (4.60-5.80); White Blood Count 5.0 X10*3/uL (4.8-10.8)
[2025-08-25 07:20] VITALS: BP 126/64; PULSE 81; RESP 18; TEMP 36.7; O2SAT 95
[2025-08-25 07:32] LABS: Alanine Aminotransferase 15 U/L (0-40); Albumin Level 3.8 g/dL (3.5-5.0); Alkaline Phosphatase 172 U/L (39-117); Anion Gap 21 (12-20); Aspartate Amino Transferase 20 U/L (5-37); Blood Urea Nitrogen 44 mg/dL (9-16); Calcium 8.4 mg/dL (8.4-10.2); Carbon Dioxide 17 mmol/L (22-29); Chloride 107 mmol/L (96-108); Creatinine Clr Calc Pharmacy 32.0; Estimated Glomerular Filt Rate 24; Magnesium 2.2 mg/dL (1.6-2.6); Potassium 4.1 mmol/L (3.3-5.1); Sodium 141 mmol/L (135-145); Total Protein 6.8 g/dL (6.5-8.0)
[2025-08-25] MEDS: Metoprolol Succinate ER 25 MG TAB.ER.24H PO (09:29)
[2025-08-25] MEDS: 0.9 % Sodium Chloride Flush 3 ML SYRINGE IVFLUSH (09:31)
[2025-08-25 11:07] VITALS: BP 122/73; PULSE 81; RESP 18; TEMP 36.8; O2SAT 93
--- NOTE | 2025-08-25 11:19 | P.DS_ITS ---
DS: Providers Provider Date of Service: 08/25/25 Date of admission: 08/22/25 10:48 Date of discharge: 08/25/25 Primary care physician: Chris Espino MD Consults: 08/22/25 10:48 Consult to Cardiology Routine Consulting Provider: [facility] [place] [facility] Reason for consultation: CHF Attending physician on discharge: [place] Discharging clinician: Bev Bhardwaj DS: Diagnosis Discharge Diagnosis (1) Acute on chronic HFrEF (heart failure with reduced ejection fraction): Status: Acute DS: Summary Hospital Course Hospital Course: From H&P on the day of admission 75 year old male with history of CHF, presenting to the ED for evaluation of worsening dyspnea on exertion. Patient reported dyspnea with activity even only taking a few steps and symptoms became progressively worse for the past four days relieved with rest. He also reports bilateral lower extremity edema at basline and takes Bumex at home. He reports a productive cough with white sputum. He denies fever, chills, chest pain or abdominal pain. In the ED BNP was 9661, normal troponin, elevated potassium of 5.3, UA positive. Patient received IV lasix, lokelma amd rocephin. He will be admitted for further management of acute CHF. Acute HFrEF/ischemic cardiomyopathy SC s/p stent recently at [facility]. Bumex was discontinued on that admission. Patient was initially treated with IV Bumex. He was diuresed well, was weaned off of supplemental oxygen, respiratory symptoms and leg edema improved. He is been maintaining oxygen levels on room air. Renal function trended up slightly due to diuresis but overall has remained near baseline. He was seen in consultation by cardiology who recommended discharge with po bumex 1 mg daily. He will need outp atient follow up with cardiology. CHF education reinforced. He will be discharged home with PT and VNA services. Hyperkalemia. Resolved UTI ruled out. Patient was empirically started on IV ceftriaxone, urine culture resulted with no growth, IV antibiotics were discontinued. CKD3. renal function has remained near baseline, will need close monitoring. will repeat labs in one week acute lactic acidosis. not due to sepsis. now resolved. Time Attestation Discharge Coordination Time (in mins): 36 Quality: Safe Use of Opioids Does Pt have an Active Cancer Diagnosis on the Problem List?: No Quality: Stroke Does the patient have a stroke diagnosis?: No Physical Exam Vital Signs: Vital Signs: Last Vital Signs Temp 98.3 F 08/25/25 11:07 Pulse 81 08/25/25 11:07 Resp 18 08/25/25 11:07 BP 122/73 08/25/25 11:07 Pulse Ox 93 08/25/25 11:07 O2 Del Method Room Air 08/25/25 11:07 O2 Flow Rate 1 08/22/25 23:21 BMI result Body Mass Index 38.1 Const: General: cooperative, comfortable, no acute distress, alert and awake Nutritional Appearance: overweight Resp: Effort & Inspection: no respiratory distress and no use of accessory muscles Cardio: Rate: regular rate Neuro: Other: grossly nonfocal DS: Data Data Completed and Pending Labs on day of discharge: Laboratory Results - last 24 hr 08/25/25 06:47 WBC 5.0 RBC 4.10 L Hgb 11.8 L Hct 37.1 L MCV 90.5 MCH 28.8 MCHC 31.8 RDW 16.6 H Plt Count 127 L MPV 10.1 Immature Gran % (Auto) 0.6 H Neut % (Auto) 72.2 Lymph % (Auto) 12.7 L [place] % (Auto) 11.9 H Eos % (Auto) 1.4 Baso % (Auto) 1.2 Lymph # (Auto) 0.6 L [place] # (Auto) 0.6 Eos # (Auto) 0.1 Baso # (Auto) 0.1 Abs Immat Gran (auto) 0.03 Absolute Neuts (auto) 3.6 Absolute Nucleated RBC 0.000 Nucleated RBC % (auto) 0.0 Sodium 141 Potassium 4.1 Chloride 107 Carbon Dioxide 17 L Anion Gap 21 H BUN 44 H Creatinine 2.63 H Estim Creat Clear Calc 32.0 Estimated GFR 24 Random Glucose 100 Calcium 8.4 Magnesium 2.2 Total Bilirubin 0.7 AST 20 ALT 15 Alkaline Phosphatase 172 H Total Protein 6.8 Albumin 3.8 Preliminary micro results at discharge 08/22/25 09:30 Blood Culture - Preliminary Blood - Venous No growth after 48 hours. 08/22/25 12:48 Blood Culture - Preliminary Blood - Venous No growth after 48 hours. Discharge Plan Discharge Anticipated Discharge Date/Time: 08/25/25 11:45 Patient Disposition: Home Health Service Discharge Diagnosis: Acute on chronic HFrEF hyperkalemia - resolved UTI ruled out Referrals: [facility] [Outside] - 1 Week Chris Espino MD [Primary Care Provider, Internal Medicine] - 1 Week Aiden Cazares MD [Physician, Cardiology] - 1 Week Discharge Medications: New bumetanide 2 mg tablet 2 mg PO DAILY 90 Days Qty: 90 0RF Continued amiodarone 200 mg tablet 200 mg PO DAILY Qty: 90 1RF atorvastatin 40 mg tablet 40 mg PO BEDTIME Qty: 90 1RF clopidogrel 75 mg tablet 75 mg PO DAILY Qty: 90 1RF famotidine 20 mg tablet 20 mg PO DAILY Qty: 90 1RF Eliquis 5 mg tablet 5 mg PO BID 90 Days Qty: 180 3RF (DME) Spacer See Rx Instructions .Route .MEDSUPPLY Qty: 1 0RF Rx Instructions: As directed ipratropium-albuterol 0.5 mg-3 mg(2.5 mg base)/3 mL solution for nebulization 3 ml inhalation Q6H PRN (Reason: for wheezing) Qty: 90 1RF albuterol sulfate [Ventolin HFA] 90 mcg/actuation HFA aerosol inhaler 1 puff inhalation QID PRN (Reason: shortness of breath or wheezing) Qty: 8.5 3RF metoprolol succinate 25 mg tablet extended release 24 hr 25 mg PO DAILY Qty: 90 0RF isosorbide mononitrate 30 mg tablet extended release 24 hr 30 mg PO DAILY Qty: 90 0RF spironolactone 25 mg tablet 25 mg PO DAILY Qty: 90 0RF trazodone 50 mg tablet 25 mg PO BEDTIME Qty: 90 0RF dapagliflozin propanediol [Farxiga] 10 mg tablet 10 mg PO DAILY Qty: 90 0RF (DME) Mepilex 4 X 4 bandage See Rx Instructions .Route Qty: 5 2RF Rx Instructions: As directed (DME) [facility] [place]ructions .Route Qty: 1 0RF Rx Instructions: As directed melatonin 10 mg tablet 10 mg PO BEDTIME Discharge Orders: Discharge Order (Routine); Ordered 08/25/25 Ordered By: Bev Bhardwaj Activity on Discharge: As tolerated Stand Alone Forms: Patient Portal Discharge page Print Language: [place] Other Ambulatory Orders: Basic Metabolic Panel (Routine) Timeframe: 1 Week Facility: [facility] - Location: Laboratory Ordered By: Bev Bhardwaj Care Plan Goals: See below Health Concerns: decompensated HFrEF UTI ruled out hyperkalemia resolved Plan of Treatment: take bumex 2 mg daily outpatient follow up in Cardiology office Repeat labs in 1 week Assessment: See discharge summary
--- NOTE | 2025-08-25 11:56 | W.MHC.F2F ---
Service Date Service Date: 08/25/25 Encounter Date of encounter: 08/25/25 Reasons for Services Signs and symptoms assessed: needs longterm for CHF education/med rec; home PT Reason for longterm: CV/CP assess and/or care and teach disease management Reason for physical therapy: home safety and mobility and therapeutic exercises Overseeing Care: Chris Espino Homebound: Leaving the home is medically contraindicated at this time without the asist of a device and/or another person due th the listed conditions above and below. Reason homebound: unsteady gait / fall risk Certification: Based on the above findings, I certify that this patient is confined to the home and needs intermittent longterm care, physical therapy and/or speech therapy, or continues to need occupational therapy. The patient is under my care, and I have initiated the establishment of the plan of care. The patient will be followed by a physician who will periodically review the plan of care. Time Spent With Patient Time: Total time managing care of this patient today ____ minutes.
--- NOTE | 2025-08-25 11:57 | MHC.CM.PN ---
Patient is medically cleared for dc to home today with services; [facility] has bee notified of today's dc.
--- NOTE | 2025-08-30 12:10 | P.CDIM_ITS ---
PROVIDER RESPONSE TEXT: To clarify, the appropriate diagnosis supported by the clinical indicators: Sepsis: suspected QUERY TEXT: PHYSICIAN'S DOCUMENTATION REQUEST Date of Query: 08/24/2025 12:07 PM EST Patient Name: Aaron Valverde Admit Date: 08/22/2025 Dear Ivy Yan MD, A review of the medical record indicates additional documentation may be needed. Please review below and update the documentation accordingly. Clinical indicators: WBC 5.4 LA 2.7 HR 79 RR 26 TEMP 98.6 Progress note 08/23/25 - Possible UTI vs. Sepsis Continue Ceftriaxone, deescalate based on abx. Sepsis Systemic manifestations of infection, with 2 or more SIRS criteria which include: Fever > 100.4?F or hypothermia < 96.8?F Leukocytosis - WBC > 12,000 or leukopenia, WBC < 4,000, or > 10% bands Tachycardia- > 90 beats/minute Tachypnea- RR > 20 breaths/minute or PaCO2 < 32mmHg Based on the above information and the recognized standard for sepsis, could you please clarify if this diagnoses is still accurate and reflective of the patient's condition to ensure quality of the medical record. Sepsis is/was present and is a clinical diagnosis After study Sepsis has been ruled out Sepsis suspected, possible, probable etc. Other (explain) Clinically unable to determine (explain) Thank you, Dina Davenport, CCS, CDIS Use of terms such as suspected, likely, concern for, or probable (associated with a specific diagnosis that is being evaluated, monitored, or treated as if it exists) are acceptable and can be coded in the inpatient setting, when documented at the time of discharge. Please use your independent medical judgment in providing your response. THIS QUERY IS PART OF THE PERMANENT MEDICAL RECORD
== END 2025-08-25 15:02 | disposition home health service (06) | DRG 291 ==
LOC: HO.ED 09:16 → HO.EDOVER 10:57 → HO.IMC 08-23 10:31
PROVIDERS: Student in an Organized Health Care Education/Training Program; Admitting Provider Nurse Practitioner Acute Care; Emergency Provider Emergency Medicine Emergency Medical Services; PCP Student in an Organized Health Care Education/Training Program; Visit Provider Physician Assistant Medical
DX: I11.0 Hypertensive heart disease with heart failure (principal); I50.23 Acute on chronic systolic (congestive) heart failure; Z68.41 Body mass index [BMI] 40.0-44.9, adult; N18.30 Chronic kidney disease, stage 3 unspecified; D63.1 Anemia in chronic kidney disease; E87.5 Hyperkalemia; I25.5 Ischemic cardiomyopathy; Z20.822 Contact with and (suspected) exposure to COVID-19; E66.813 Obesity, class 3; Z71.3 Dietary counseling and surveillance; Z95.810 Presence of automatic (implantable) cardiac defibrillator; Z87.891 Personal history of nicotine dependence; Z79.01 Long term (current) use of anticoagulants; Z79.02 Long term (current) use of antithrombotics/antiplatelets; Z79.899 Other long term (current) drug therapy
CPT/HCPCS: 36415; 71045; 80053; 81001; 82803; 83605; 83735; 83880; 84484; 85025; 85027; 85610; 87040; 87086; 87088; 87186; 87502; 87635; 93005; 93306; 97116; 97162; 97530; 99285; J0696; J1938; J1939; Q9957

== ENCOUNTER → 2025-08-22 08:06 | Outpatient (BNV) | payer MEDICARE, SELFPAY | PROVIDERS: PCP Student in an Organized Health Care Education/Training Program; Visit Provider Internal Medicine | DX: I50.9 Heart failure, unspecified (principal); R94.31 Abnormal electrocardiogram [ECG] [EKG]; Z95.0 Presence of cardiac pacemaker | CPT/HCPCS: 93010; 93306 ==

== ENCOUNTER → 2025-08-22 08:26 | Outpatient (BNV) | payer MEDICARE, SELFPAY | PROVIDERS: PCP Student in an Organized Health Care Education/Training Program; Visit Provider Radiology Diagnostic Radiology | DX: J90 Pleural effusion, not elsewhere classified (principal) | CPT/HCPCS: 71045 ==

== ENCOUNTER → 2025-08-22 10:48 | Outpatient (BNV) | payer MEDICARE, SELFPAY | PROVIDERS: Admitting Provider Nurse Practitioner Acute Care; Emergency Provider Emergency Medicine Emergency Medical Services; PCP Student in an Organized Health Care Education/Training Program; Visit Provider Internal Medicine | DX: I50.43 Acute on chronic combined systolic (congestive) and diastolic (congestive) heart failure (principal) | CPT/HCPCS: 99223; 99233 ==

== ENCOUNTER → 2025-08-22 10:48 | Outpatient (BNV) | payer MEDICARE, SELFPAY | PROVIDERS: Admitting Provider Nurse Practitioner Acute Care; Emergency Provider Emergency Medicine Emergency Medical Services; PCP Student in an Organized Health Care Education/Training Program; Visit Provider Student in an Organized Health Care Education/Training Program | DX: I50.23 Acute on chronic systolic (congestive) heart failure (principal); I10 Essential (primary) hypertension | CPT/HCPCS: 99222; 99233; 99239; G0180 ==

== ENCOUNTER 2025-08-30 10:37 | Outpatient (REF) | payer MEDICARE, SELFPAY ==
[2025-08-30 13:38] LABS: Anion Gap 22 (12-20); Blood Urea Nitrogen 39 mg/dL (9-16); Calcium 8.7 mg/dL (8.4-10.2); Carbon Dioxide 20 mmol/L (22-29); Chloride 102 mmol/L (96-108); Estimated Glomerular Filt Rate 28; Potassium 4.2 mmol/L (3.3-5.1); Sodium 140 mmol/L (135-145)
== END 2025-08-30 10:38 | disposition home or self-care (01) ==
LOC: HO.10HDL 10:37
PROVIDERS: Visit Provider Physician Assistant Medical
DX: I50.9 Heart failure, unspecified (principal)
CPT/HCPCS: 36415; 80048

== ENCOUNTER 2025-09-02 10:59 | Outpatient (AMB) | payer MEDICARE, SELFPAY ==
--- NOTE | 2025-09-02 11:14 | MHC.PC.OV ---
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 He has a history of multiple hospitalizations and rehab stays for his cardiac issues. The patient has a history of heart failure, characterized by the heart not pumping as strongly as it should, which contributes to fluid retention. He sustained a heart attack in June, which was managed at [facility]. His recent hospitalization was for fluid buildup. He also has a history of atrial fibrillation, COPD, hypertension, and hypercholesterolemia. He has had a recent stent placed. His chronic kidney disease has progressed from stage 3 to stage 4, which complicates fluid management. He is followed by a neurological surgeon, Dr. Su. Recent blood work was noted to be fine other than the decline in kidney function. Following his hospitalizations, the patient expresses a desire to regain his strength and reports feeling weak, to the point he had an incident yesterday morning while getting into a car and needed assistance. He has received limited rehabilitation in a facility, about half an hour a day on weekdays. He does have a walker at home. Medical History: - Congestive heart failure, with recent hospitalization for fluid overload - History of myocardial infarction in June - Atrial fibrillation (A-fib) - Stage 4 chronic kidney disease, progressed from stage 3 - Chronic Obstructive Pulmonary Disease (COPD) - Hypertension - Hypercholesterolemia - Multiple hospitalizations and rehabilitation stays Surgical History: - Recent coronary stent placement Medications: - Albuterol inhaler for COPD - Amiodarone 200 mg once a day for atrial fibrillation - Eliquis (Apixaban) 5 mg twice a day for atrial fibrillation - Atorvastatin 40 mg for cholesterol - Bumex (Bumetanide) 2 mg once a day as a diuretic - Plavix (Clopidogrel) 75 mg for recent stent - Farxiga (dapagliflozin) 10 mg for heart failure - DuoNeb (ipratropium/albuterol) every 6 hours for COPD - Isosorbide mononitrate 30 mg for hypertension and heart failure - Metoprolol succinate 25 mg for atrial fibrillation, blood pressure, and heart failure - Spironolactone 25 mg daily, currently on hold per hospital instruction Diagnostic Results: - Labs: Recent blood work is unremarkable except for worsening kidney function. Social History - Functional Status: Reports feeling weak and wishes he could walk normally. - Activity/Exercise: Patient had limited rehab in a facility (30 minutes on weekdays) and is encouraged to use a walker at home to build strength. - Home Care: A home health aide is scheduled to start assisting the patient. - Nutrition: Advised to eat healthy, with specific counseling to avoid salt. - Fluid Intake: Advised to limit fluid intake. - Weight Management: Advised to check weights every morning. - He has a DNR and has provided his wishes for end-of-life care. [facility] Medical History (Updated 09/02/25 @ 12:00 by Chris Espino MD) Hypertension Advance care planning Debility Chronic kidney disease (CKD), stage 4 Screening for lung cancer Pressure injury CKD stage 3b, GFR 30-44 ml/min COPD (chronic obstructive pulmonary disease) Morbid obesity with BMI of 40.0-44.9, adult Biventricular ICD (implantable cardioverter-defibrillator) in place Paroxysmal atrial flutter Coronary artery disease Ischemic cardiomyopathy Atrial flutter History of cardiac arrest Complete heart block Ventilator associated pneumonia STEMI (ST elevation myocardial infarction) Hx of retirement use of blood thinners Surgical History S/P ICD (internal cardiac defibrillator) procedure (04/2024) Family History Mother No problems noted. Father No problems noted. Social History Household Members: Spouse Household Members Other:: Housing: House Are you a primary career services director to a significant other at home: No Do you presently have visiting nurse or other home services: No Patient Tobacco Use Status: Former Tobacco user Tobacco use type: Cigarette e-Cigarette/Vaping Use: Never Used Second Hand Smoke Exposure: No Advance Directives Date on File: 09/12/24 service: No Current occupational status: retired Cognitive needs: No Hearing needs: No Vision needs: Yes (reading glasses) Questionnaire Thrive Questionnaire Date Thrive assessed: 08/23/25 HUE-7 AMB Questionnaire HUE-7 Date HUE - 7 assessed: 02/07/25 Source: Developed by Drs. Stevenson Springer, Micaela Carlin, Delvin Puente and colleagues, with an educational farooq from [employer]. Review of Systems Narrative Review of Systems - General: Reports weakness and wishes to regain strength. - Musculoskeletal: Reports desire to walk normally. All systems reviewed & are unremarkable except as reviewed in HPI and above Physical exam (Primary Care) Vital Signs: Last Vital Signs Temp 97.5 F 09/02/25 11:28 Pulse 84 09/02/25 11:28 Resp 22 H 09/02/25 11:28 BP 117/62 09/02/25 11:28 Pulse Ox 94 09/02/25 11:28 Oxygen Delivery Method Room Air 09/02/25 11:28 BMI result Body Mass Index 40.4 Tobacco/Smoking Status: Tobacco use Status Tobacco use date assessed 02/07/25 09/02/25 11:16 Patient Tobacco Use Status Former Tobacco user 09/02/25 11:16 Tobacco use type Cigarette 09/02/25 11:16 e-Cigarette/Vaping Use Never Used 09/02/25 11:16 Thrive Assessment: Date of Thrive Assessment Date Thrive assessed 08/23/25 09/02/25 11:16 Advance Care Planning discussion: Completed/Scanned Date of discussion: 09/02/25 Who was present: Forms completed: MOLST and Comfort care/DNR (DNR) Time spent: 1-15 minutes, on File Actual minutes spent: 6 Narrative Physical Exam General: +Alert and oriented, Well nourished, No acute distress. Eye: Pupils are equal, round and reactive to light, Intact accommodation, Extraocular movements are intact, Normal conjunctiva, Vision unchanged. HENT: Normocephalic, Atraumatic, Tympanic membranes are clear, Normal hearing, Oral mucosa is moist, No pharyngeal erythema, Ear canals patent. Respiratory: Lungs CTA bilaterally, No wheeze, Respirations are non-labored. Cardiovascular: Regular rate, Regular rhythm, S1 auscultated, S2 auscultated, No murmur, Good pulses equal in all extremities, Normal peripheral perfusion, No edema. Gastrointestinal: Soft, Non-tender, Non-distended, Normal bowel sounds, No organomegaly. Musculoskeletal: Normal range of motion, Normal strength, No tenderness, No swelling, No deformity, Normal gait. Integumentary: Warm, Dry, [place], Intact. Neurologic: Alert, Oriented, Normal sensory, Normal motor function, No focal defects, Cranial Nerves II-XII are grossly intact, Normal deep tendon reflexes. Psychiatric: Cooperative, Appropriate mood & affect, Normal judgment. This established patient visit required high-complexity medical decision making due to the management of multiple severe and unstable chronic conditions, including acute on chronic congestive heart failure with recent hospitalization for fluid overload, progression of chronic kidney disease to stage 4, atrial fibrillation on anticoagulation, coronary artery disease status post recent stent, COPD, and associated post-hospital deconditioning with fall risk. Care involved extensive review of recent hospitalizations, laboratory data, and specialist input, along with high-risk medication management, including diuretic titration with patient-directed adjustments, anticoagulation, and heart failure therapies in the setting of advanced renal disease. The visit included significant counseling to prevent rehospitalization, coordination of care with cardiology and nephrology, and assessment of functional decline. The overall risk of morbidity and mortality was high, supporting billing at the 29680 level. Coding Level of Care Code Est Pt Level 5 (06267) Add On Problem Visit Only Diagnoses Chronic systolic congestive heart failure I50.22 Heart failure chronicity: chronic Heart failure type: systolic Chronic kidney disease (CKD), stage 4 N18.4 Debility R53.81 Paroxysmal atrial flutter I48.92 Biventricular ICD (implantable cardioverter-defibrillator) in place Z95.810 Chronic obstructive pulmonary disease, unspecified COPD type J44.9 COPD type: unspecified COPD Hypertension, unspecified type I10 Hypertension type: unspecified Advance care planning Z71.89 Additional Codes Vital Signs *Quality* - Advance Care Planning discussion: Completed/Scanned ([id number]) Vital Signs *Quality* - Time spent: 1-15 minutes, on File ([id number]) Assessment & Plan Assessment & Plan (1) CHF (congestive heart failure): Comment: - The patient was recently hospitalized for fluid buildup. - The pathophysiology of his heart failure and its effect on the kidneys, leading to fluid retention, was explained. - Plan is to continue current heart failure medications including Bumex, Farxiga, Isosorbide mononitrate, and Metoprolol succinate. - He is instructed to monitor his weight daily and take an extra dose of Bumex if he notices a weight gain of one to two pounds. - He is also counseled on the importance of fluid and salt restriction to prevent recurrent hospitalizations. - The management of spironolactone will be deferred to his crime lab technician. Code(s): I50.9 - Heart failure, unspecified Category: Medical Qualifiers: Heart failure chronicity: chronic Heart failure type: systolic Qualified Code(s): I50.22 - Chronic systolic (congestive) heart failure (2) Chronic kidney disease (CKD), stage 4: Comment: - The patient's kidney disease has progressed from stage 3 to stage 4, which complicates fluid management and increases the risk of needing dialysis in the future. - He will continue to be monitored by his neurological surgeon, Dr. Su. - The importance of following with specialists was emphasized. Code(s): N18.4 - Chronic kidney disease, stage 4 (severe) Category: Medical (3) Debility: Comment: - The patient is experiencing significant weakness following his recent hospitalizations. - He is encouraged to increase his mobility and use his walker at home to regain strength. - A home health aide is scheduled to start, which should aid in his recovery and movement. Code(s): R53.81 - Other malaise Category: Medical (4) Paroxysmal atrial flutter: Comment: - Continue amiodarone and Eliquis - HR well controlled today - Prior EKG reviewed and showed atrial sensed and V Paced Code(s): I48.92 - Unspecified atrial flutter Category: Medical (5) Biventricular ICD (implantable cardioverter-defibrillator) in place: Comment: [facility] Bi V ICD in place. Functioning normally on interrogation last visit with cardiology. Continue follow up with cardiology History of Sudden Cardiac Code(s): Z95.810 - Presence of automatic (implantable) cardiac defibrillator Category: Medical (6) COPD (chronic obstructive pulmonary disease): Comment: - Continue use of DuoNebs - No hospitalizations or wheezing Code(s): J44.9 - Chronic obstructive pulmonary disease, unspecified Category: Medical Qualifiers: COPD type: unspecified COPD Qualified Code(s): J44.9 - Chronic obstructive pulmonary disease, unspecified (7) Hypertension: Comment: - Maintain current antihypertensive therapy - Pressures well controlled in clinic today - Reinforced need of good pressure control and medication adherence Code(s): I10 - Essential (primary) hypertension Category: Medical Qualifiers: Hypertension type: unspecified Qualified Code(s): I10 - Essential (primary) hypertension (8) Advance care planning: Comment: - The patient has a DNR. - A MOLST form was completed and signed to reflect his wishes. - He consents to use of a mask for breathing assistance but declines intubation. - He would not want to be transported to the hospital if found not breathing at home. - He also declines artificial nutrition and hydration but would consider dialysis if needed. - The signed pink form was given to the patient to be placed on his refrigerator at home, and a copy will be scanned into the system. Code(s): Z71.89 - Other specified counseling Category: Medical Plan: Health Maintenance: - Diet: Advised to eat a healthy diet and avoid salt to manage fluid retention. - Fluid Intake: Counseled to be very cognizant of and limit fluid intake due to heart failure. - Weight Management: Instructed to weigh himself every morning and report any sudden increase. - Exercise: Advised to use his walker and keep moving around to regain strength. - Fall Prevention: Cautioned to be careful when walking due to weakness and use of Eliquis. - Advance Care Planning: Discussed and documented end-of-life wishes on a MOLST form, including DNR status, preferences on hospital transport, and life-sustaining treatments. Patient was informed and verbally consented to the use of an ambient scribe for clinic note documentation during this visit. Plan I had a detailed discussion with the patient and his regarding his recent hospitalization for fluid overload secondary to heart failure. I explained how heart failure affects the kidneys and leads to fluid retention, emphasizing the importance of adherence to medications, daily weight monitoring, and dietary restrictions, specifically limiting salt and fluid intake, to prevent future decompensation and rehospitalization. We reviewed the progression of his chronic kidney disease to stage 4 and the implications this has on fluid management and the potential future need for dialysis. I stressed the importance of regular follow-up with his specialists, including the crime lab technician and neurological surgeon, and deferred the decision on restarting spironolactone to his crime lab technician. I also addressed his current weakness, explaining it as a consequence of his hospitalization and immobility, and encouraged him to use his walker to gradually increase his activity and strength. We had an important discussion about his goals of care and completed a MOLST form to document his wishes. He confirmed his DNR status and stated he would not want to be intubated or transported to the hospital if found down and not breathing, but is amenable to non-invasive breathing support. He declined artificial nutrition and hydration but is open to dialysis. I provided him with the signed pink form for his home and will have a copy scanned into our system. I informed him that his upcoming November follow-up with me will be converted to a telehealth visit for convenience. Patient Instructions: - Take your medications as prescribed. - Weigh yourself every morning. If you see your weight go up by one or two pounds, take an extra dose of your water pill, Bumex. - Limit the amount of fluids you drink. This is very important for your heart failure. - Avoid using salt in your food, as it makes your body hold onto more fluid. - Do not restart your spironolactone medication until you see your heart doctor next week. - Work on getting your strength back by walking around your home. Use your walker to be safe and prevent falls. - Keep your follow-up appointments with your heart doctor (crime lab technician) and kidney doctor (neurological surgeon). - Place the pink MOLST (Medical Orders for Life-Sustaining Treatment) form on your refrigerator where emergency personnel can easily see it. - Your next appointment with this office in November will be a telehealth (phone or video) visit. You do not need to come into the office.
[2025-09-02 11:28] VITALS: BP 117/62; PULSE 84; RESP 22; TEMP 36.4; O2SAT 94; BMI 40.4
== END 2025-09-02 11:55 | disposition home or self-care (01) ==
LOC: HO.HMCHD 11:00
PROVIDERS: PCP Student in an Organized Health Care Education/Training Program; Visit Provider Student in an Organized Health Care Education/Training Program
DX: I12.9 Hypertensive chronic kidney disease with stage 1 through stage 4 chronic kidney disease, or unspecified chronic kidney disease (principal); I50.22 Chronic systolic (congestive) heart failure; N18.4 Chronic kidney disease, stage 4 (severe); I48.92 Unspecified atrial flutter; J44.9 Chronic obstructive pulmonary disease, unspecified; R53.81 Other malaise; Z95.810 Presence of automatic (implantable) cardiac defibrillator; Z71.89 Other specified counseling; Z00.00 Encounter for general adult medical examination without abnormal findings

== ENCOUNTER → 2025-09-02 10:59 | Outpatient (BNVA) | payer MEDICARE, SELFPAY | PROVIDERS: PCP Student in an Organized Health Care Education/Training Program; Visit Provider Student in an Organized Health Care Education/Training Program | DX: Z09 Encounter for follow-up examination after completed treatment for conditions other than malignant neoplasm (principal); Z71.89 Other specified counseling; R53.81 Other malaise; I13.0 Hypertensive heart and chronic kidney disease with heart failure and stage 1 through stage 4 chronic kidney disease, or unspecified chronic kidney disease; I50.23 Acute on chronic systolic (congestive) heart failure; E87.70 Fluid overload, unspecified; N18.4 Chronic kidney disease, stage 4 (severe); J44.9 Chronic obstructive pulmonary disease, unspecified; I48.92 Unspecified atrial flutter; E78.00 Pure hypercholesterolemia, unspecified; Z86.74 Personal history of sudden cardiac arrest; Z95.5 Presence of coronary angioplasty implant and graft; Z95.810 Presence of automatic (implantable) cardiac defibrillator; Z79.01 Long term (current) use of anticoagulants; Z79.899 Other long term (current) drug therapy; Z87.891 Personal history of nicotine dependence | CPT/HCPCS: 99212 ==

== ENCOUNTER 2025-09-06 11:06 | Outpatient (AMB) | payer MEDICARE, SELFPAY ==
--- OUTSIDE RECORDS SUMMARY | 2025-02-11 08:00 | XMS_ITS ---
Author Organization [facility] Address [address] [place] [address] Care Team Providers Care Commercial Airplane Pilot Name Role Phone Jose Manuel Escalera MD Primary Care Provider Brandon Stokes Unavailable [phone] Medications Medication SIG (Take, Route, Frequency, Duration) Notes Start Date End Date Status Warfarin Sodium 5 MG 1 tablet Orally Onc e a day; Duration: 30 day(s) Active Metoprolol Tartrate 50 MG 1 tablet with food Orally Twice a day; Duration: 30 day(s) Active Atorvastatin Calcium 10 MG 1 tablet Oral ly Once a day; Duration: 30 day(s) Active amLODIPine Besylate 5 MG 1 tablet Orally Once a day; Duration: 30 day(s) Active Ammonium Lactate 12 % 1 application Exte rnally Twice a day; Duration: 30 days Active Lisinopril 10 MG 1 tablet Orally Once a day; Duration: 30 day(s) Active Furosemide 20 MG 1 tablet Orally Once a day; Duration: 30 day(s) Active Encounters Encounter Location Date Provider Diagnosis [facility] [address] [place] [address] 02/11/2025 Brandon Lozano Plan Of Treatment No Information Progress Notes * Aaron VALVERDEDOB:1950 (75 yo M)Acc No.[id number]:02/11/2025 Progress Note Patient: Aaron HYMAN Provider: Salinas Lozano DPM :1950 A ge:74 Y S ex:Male Date:02/11/2025 Address:[address] [place] [address] [address] [id number] Pcp:Jose Manuel Escalera MD Subjective: * Chief Complaints: * * Medical History: B ack,Hip,and Knee pain, Dementia, High blood pressure, Stroke, Measles, Mumps, Chicken pox, CAD, Heart attack - March 25, 2024. * Medications: T aking Ammonium Lactate 12 % Cream 1 application Externally Twice a day , Taking amLODIPine Besylate 5 MG Tablet 1 tablet Orally Once a day , Taking Atorvastatin Calcium 10 MG Tablet 1 tablet Orally Once a day , Taking Furosemide 20 MG Tablet 1 tablet Orally Once a day , Taking Lisinopril 10 MG Tablet 1 tablet Orally Once a day , Taking Metoprolol Tartrate 50 MG Tablet 1 tablet with food Orally Twice a day , Taking Warfarin Sodium 5 MG Tablet 1 tablet Orally Once a day Objective: * Vitals: Assessment: Plan: * Treatment: * Images: * The named appointment provid er may or may not be the originator of this progress note, and it is not deemed complete until electronically signed by the appointment provider. Sign off status: Pending * Provider: Salinas Lozano DPM Date: 0 02/11/2025 Generated for Laura Falcon/Yovana on: 1 11/07/2024 02:41 PM EST
--- NOTE | 2025-09-06 11:13 | HO.NEPHOV ---
Vital Signs 09/06/25 11:15 Height 5 ft 8 in Weight 269 lb BMI 40.9 BP 110/60 Blood Pressure Location Rt brachial Position Sitting Pulse 57 Pulse Source Pulse Oximeter Pulse Oximetry (%) 92 Oxygen Delivery Method Room Air Intake Visit [place] [facility] [place] Quality Control Assistant Required: No Accompanied by: Spouse Allergies No Known Allergies (No Known Allergies*) Allergy (Verified 09/06/25 11:16) Medication List - Last Reconciled 09/06/25 by Yogi Fitzgerald MD albuterol sulfate 90 mcg/actuation (Ventolin HFA) 1 puff inhalation QID PRN amiodarone 200 mg PO DAILY apixaban (Eliquis) 5 mg PO BID 90 days atorvastatin 40 mg PO BEDTIME bumetanide 2 mg PO DAILY 90 days clopidogrel 75 mg PO DAILY dapagliflozin propanediol (Farxiga) 10 mg PO DAILY Donut pillow As directed famotidine 20 mg PO DAILY foam bandage (Mepilex) As directed ipratropium-albuterol 0.5 mg-3 mg(2.5 mg base)/3 mL 3 mL inhalation Q6H PRN isosorbide mononitrate ER 30 mg PO DAILY melatonin 10 mg PO BEDTIME metoprolol succinate ER 25 mg PO DAILY [Spacer As directed] spironolactone 25 mg PO DAILY Held on 08/25/25. Instructions: hold until follow up labs friday/discussion with cardiology trazodone 25 mg (1/2 x 50 mg) PO BEDTIME HPI Comments Details: History of Present Illness The patient is a 75 year old male presenting for follow-up on his chronic kidney disease and recent hospitalizations. He experienced a heart attack at the end of June and was hospitalized at [facility], where he underwent a procedure with stent placement by Dr. Martinez. Following this, he was transferred to a rehabilitation facility. More recently, from August 22 to , he was hospitalized at [facility] for fluid buildup. Since his heart attack, his weight has decreased. He reports no current chest pain. His kidney function has declined following his recent hospitalizations, with a current function of 28%. His kidney function was previously around 35% in January and has been as low as 16% in the past before improving. The decline is attributed to his heart condition and possibly the contrast dye used during his angiogram. His medications include amiodarone, Bumex, and Farxiga. Spironolactone is on hold pending his cardiology appointment. He is attempting to follow a low-salt diet. Results - Labs: Blood work from August 30 showed a decline in kidney function. - Labs: Kidney function is currently at 28%, which is a decrease from 35% in January. [facility] Medical History (Updated 09/02/25 @ 12:00 by Chris Espino MD) Hypertension Advance care planning Debility Chronic kidney disease (CKD), stage 4 Screening for lung cancer Pressure injury CKD stage 3b, GFR 30-44 ml/min COPD (chronic obstructive pulmonary disease) Morbid obesity with BMI of 40.0-44.9, adult Biventricular ICD (implantable cardioverter-defibrillator) in place Paroxysmal atrial flutter Coronary artery disease Ischemic cardiomyopathy Atrial flutter History of cardiac arrest Complete heart block Ventilator associated pneumonia STEMI (ST elevation myocardial infarction) Hx of intermission coordinator use of blood thinners Surgical History S/P ICD (internal cardiac defibrillator) procedure (04/2024) Family History Mother No problems noted. Father No problems noted. Social History Household Members: Spouse Household Members Other:: Housing: House Are you a primary career manager to a significant other at home: No Do you presently have visiting nurse or other home services: No Patient Tobacco Use Status: Former Tobacco user Tobacco use type: Cigarette e-Cigarette/Vaping Use: Never Used Second Hand Smoke Exposure: No Advance Directives Date on File: 09/12/24 service: No Current occupational status: retired Cognitive needs: No Hearing needs: No Vision needs: Yes (reading glasses) Physical Exam Exam Exam: Physical Exam General: Awake. Comfortable. HENT: Neck supple. Mucosa moist. Pulmonary: Lungs aeration equal. No rales. Cardiology: Heart S1-S2 heard. No gallop. Stent placed in July. Abdomen: Soft. Non tender. Bowel sounds normal. Neurologic: No involuntary movements. No myoclonus. Extremities: Trace edema. No rash. Vital Signs: Last Vital Signs Pulse 57 12/16/25 11:15 BP 110/60 09/06/25 11:15 Pulse Ox 92 09/06/25 11:15 Oxygen Delivery Method Room Air 09/06/25 11:15 BMI result Body Mass Index 40.9 Results Reviewed Nephrology Results: Hgb, (14.0-18.0) 11.8 g/dl L 08/25/25 WBC, (4.8-10.8) 5.0 X10*3/uL 08/25/25 Plt Count, (160-400) 127 X10*3/uL L 08/25/25 Sodium, (135-145) 140 mmol/L 08/30/25 Potassium, (3.3-5.1) 4.2 mmol/L 08/30/25 Chloride, (96-108) 102 mmol/L 08/30/25 Carbon Dioxide, (22-29) 20 mmol/L L 08/30/25 BUN, (9-16) 39 mg/dL H 08/30/25 Creatinine, (0.5-1.4) 2.32 mg/dL H 08/30/25 Calcium, (8.4-10.2) 8.7 mg/dL 08/30/25 Urine Protein, (Neg-Trace) Trace mg/dL 08/22/25 Assessment & Plan Assessment & Plan (1) CKD stage 3b, GFR 30-44 ml/min: Comment: Secondary to cardio renal syndrome with creatinine baseline appearing to be around 1.7 - Follows with Cardiology Code(s): N18.32 - Chronic kidney disease, stage 3b Category: Medical (2) Acute on chronic HFrEF (heart failure with reduced ejection fraction): Code(s): I50.23 - Acute on chronic systolic (congestive) heart failure Category: Medical Plan Plan 1. Chronic Kidney Disease - The patient's kidney function is currently at 28 ml/mt, a decline primarily related to his cardiac issues (cardiorenal syndrome), and exacerbated by his recent myocardial infarction and fluid overload. - It is noted that his function has recovered from lower points in the past, and there is potential for improvement to the 30-35% range. - Current medications will be continued without changes. - The importance of maintaining optimal fluid status and blood pressure was emphasized to preserve kidney function. Continue SGLT-2 inhibitors Avoid nephrtoxins including NSAIDS - Orders for new blood work will be placed. - A follow-up appointment is scheduled in three months. 2. Congestive Heart Failure / Cardiorenal Syndrome - Management is focused on balancing the interplay between cardiac and renal function, as diuretics can improve fluid status but may acutely worsen kidney function. - The patient is to continue his low-salt diet to help manage fluid retention. - He is scheduled to see his mortgage operations manager, Dr. Devlin, next week, at which point the hold on spironolactone will be reassessed. Orders: Orders Complete Blood Count no Diff 3 Months N18.32 - Chronic kidney disease, stage 3b Basic Metabolic Panel 3 Months N18.32 - Chronic kidney disease, stage 3b Coding Level of Care Code Est Pt Level 4 (76774) Diagnoses CKD stage 3b, GFR 30-44 ml/min N18.32 Acute on chronic HFrEF (heart failure with reduced ejection fraction) I50.23
[2025-09-06 11:15] VITALS: BP 110/60; PULSE 57; O2SAT 92; BMI 40.9
--- OUTSIDE RECORDS SUMMARY | 2025-09-06 14:42 | XMS_ITS | Patient Health Record ---
Author Organization [facility] Matilde jes [place] Address [address] [place] [address] Care Team Providers Care Fuel Yard Operator Name Role Phone Jose Manuel Escalera MD Primary Care Provider Brandon Stokes Unavailable [phone] Allergies No Known Allergies Reason For Referral [...] atherosclerosis of arteries of lower limbs (disorder) ([id number] ) Atherosclerosis of sleetm[place] artery of both lower extremities, with unspecified presence of clinical manifestation (I70.203) Active confirmed Q7(A), Q8(2B), Q9(1B,2 C) Vital Signs Blood pressure diastolic 80 mm Hg 10/15/2024 Height 5 ft 10 in in 10/15/2024 Blood pressure systolic 117 mm Hg 10/15/2024 Weight 285 lbs 10/15/2024 BMI 40.89 kg/m2 10/15/2024 Procedures Procedure Date Ordered Date Performed Result Body Sit e 76882-FKKLZUP NAIL, 6 OR MORE 10/15/2024 N/A 02602-XXPT SKIN LESIONS, OVER 4 10/15/2024 N/A Encounters Encounter Location Date Provider Diagnosis [facility] [address] [address] 10/15/2024 Brandon Lozano Atherosclerosis of sleetmute artery of both lower extremities, with unspecified presence of clinical manifestation I70.203 ; Tinea unguium B35.1 ; Pain in right toe(s) M79.674 and Pain in left toe(s) M79.[address] [facility] [address] 02/11/2025 Brandon Lozano Assessments Encounter Date Diagnosis (ICD Code) Assessment Notes Treatment Notes Treatment Clinical Notes Section Notes 10/15/2024 Atherosclerosis of sleetm[place] artery of both lower extremities, with unspecified presence of clinical manifestation (ICD-10 - I70.203) Q7(A), Q8(2B), Q9(1B,2C) 10/15/2024 Tinea unguium (ICD-10 - B35.1) 10/15/2024 Pain in right toe(s) (ICD-10 - M79.674) 10/15/2024 Pain in left toe(s) (ICD-10 - M79.675) Plan Of Treatment Pending Test Test Name Order Date 81515-VGDXRPM NAIL, 6 OR MORE 02/13/2021 69617-CKJLQOZ NAIL, 6 OR MORE 05/29/2021 70349-DEZHSZP NAIL, 6 OR MORE 12/04/2021 69840-ULDEUBH NAIL, 6 OR MORE 04/05/2022 68584-LGXERIH NAIL, 6 OR MORE 11/25/2023 74076-PPQUMJG NAIL, 6 OR MORE 10/15/2024 55534-Drskvcwh Plate 11/25/2023 40129-Atgfmpuw Plate 04/05/2022 01286-Mqpkfgzy Plate 05/29/2021 46528-NVTI SKIN LESIONS, OVER 4 05/29/20 43711-LKPF SKIN LESIONS, OVER 4 04/05/20 77643-RRHF SKIN LESIONS, OVER 4 12/05/19 82485-DQGY SKIN LESIONS, OVER 4 11/25/19 93409-OEYB SKIN LESIONS, OVER 10/15/19 47422-CXMZ SKIN LESIONS, 2 TO 4 02/14/20 21 Insurance Providers Payer Name Payer Address Payer Phone Subscriber Number Group Number Insured Name Patient Relationship to Insured Coverage Start Date Coverage End Date [employer] [address] [place] [address] [id number] Aaron Valverde Self - patient is the insured Medical (General) History Medical History History ICD Code Back,Hip,and Knee pain Dementia High blood pressure Stroke Measles Mumps Chicken pox CAD Heart attack - March 25, 2024 Surgical History Surgery Date(Month/Year) Hospitalization History Reason Date(Month/Year) [facility] [place]/2022
--- OUTSIDE RECORDS SUMMARY | 2025-09-06 14:42 | XMS_ITS | Clinical Summary ---
Author Organization [address] Address [address] [place] [address] Phone Care Team Providers Care Tray Packer Name Role Phone Roe Mendoza MD Primary Care Provider [phone] Encounters Date Type Department Care Team Description 08/17/2025 Lab Requisition [facility] Lab [address] [place] [id number] Roe Mendoza MD Acute on chronic systolic (congestive) heart failure (CMS/HCC V24, CMS/HCC V28); Chronic kidney disease, stage 3b (CMS/HCC V24, CMS/HCC V28) 08/11/2025 Lab Requisition [facility] Lab [address] [place] [phone] Roe Mendoza MD Acute on chronic systolic (congestive) heart failure (CMS/HCC V24, CMS/HCC V28); Chronic kidney disease, stage 3b (CMS/HCC V24, CMS/HCC V28); Cardiogenic shock (CMS/HCC V24, CMS/HCC V28) 08/05/2025 Lab Requisition [facility] Lab [address] [place] [address] Roe Mendoza MD Cardiogenic shock (CMS/HCC V24, CMS/HCC V28); Acute on chronic systolic (congestive) heart failure (CMS/HCC V24, CMS/HCC V28); Chronic kidney disease, stage 3b (CMS/HCC V24, CMS/HCC V28); Non-ST elevation (NSTEMI) myocardial infarction (CMS/HCC V24, CMS/HCC V28); Chronic systolic (congestive) heart failure (CMS/HCC V24, CMS/HCC V28); Atelectasis; Essential (primary) hypertension; Hyperlipidemia, unspecified; Acute kidney failure, unspecified (CMS/[facility] V24); Other acidosis; Hypokalemia; Hypo-osmolality and hyponatremia; Ischemic cardiomyopathy; Atrioventricular block, complete (CMS/HCC V24, CMS/[facility] V28); Presence of cardiac pacemaker from Last 3 Months Social History Tobacco Use Types Packs/Day Years Used Date Smoking Tobacco: Never Assessed Sex and Gender Information Value Date Recorded Sex Assigned at Not on file Legal Sex Male 3:40 PM EDT Gender Identity Not on file Sexual Orientation Not on file Plan of Treatment Health Maintenance Due Date Last Done Comments Colorectal Cancer Screening: Colonoscopy 1950 DTaP,Tdap,and Td Vaccines (1 - Tdap) 1970 Pneumococcal Vaccine: 50+ Years (1 of 2 - PCV) 1970 RSV Immunization Adult Patients (1 - Risk 50-74 years 1-dose series) 2001 Zoster Vaccines (1 of 2) 2001 Abdominal Aortic Aneurysm (AAA) Screen 07/18/2024 Cholesterol Screening (Lipid Panel) 07/18/2024 Falls Risk Assessment 07/18/2024 Hepatitis C Screening 07/18/2024 Social Influencers of Health Screening 07/18/2024 Depression Screening 09/22/2024 COVID-19 Vaccine (1 - 2024-2 6 season) 2025 Influenza Vaccine (#1) 2025 Hypertension/CHF/CAD Annual BMP Blood Test 08/12/2026 08/12/2025, 08/05/2025 HIB Vaccines Aged Out No longer eligi ble based on patient's age to complete this topic HPV Vaccines Aged Out No longer eligi ble based on patient's age to complete this topic Hepatitis A Vaccines Aged Out No long er eligible based on patient's age to complete this topic Hepatitis B Vaccines Aged Out No long er eligible based on patient's age to complete this topic IPV Vaccines Aged Out No longer eligi ble based on patient's age to complete this topic MMR Vaccines Aged Out No longer eligi ble based on patient's age to complete this topic Meningococcal ACWY Vaccine Aged Out N o longer eligible based on patient's age to complete this topic Meningococcal B Vaccine Aged Out No l onger eligible based on patient's age to complete this topic RSV Immunization Patients Under 20 months Aged Out No longer eligible b ased on patient's age to complete this topic Varicella Vaccines Aged Out No longer eligible based on patient's age to complete this topic Procedures Procedure Name Priority Date/Time Associated Diagnosis Comments COMPLETE BLOOD COUNT Routine 08/12/2025 5:31 AM EST Acute on chronic systolic (congestive) heart failure (CMS/HCC V24, CMS/HCC V28) Chronic kidney disease, stage 3b (CMS/HCC V24, CMS/HCC V28) Cardiogenic shock (CMS/HCC V24, CMS/HCC V28) BASIC METABOLIC PANEL Routine 08/12/2025 5:31 AM EST Acute on chronic systolic (congestive) heart failure (CMS/HCC V24, CMS/HCC V28) Chronic kidney disease, stage 3b (CMS/HCC V24, CMS/HCC V28) Cardiogenic shock (CMS/HCC V24, CMS/HCC V28) VITAMIN D 25 HYDROXY Routine 08/05/2025 5:47 AM EST Cardiogenic shock (CMS/HCC V24, CMS/HCC V28) Acute on chronic systolic (congestive) heart failure (CMS/HCC V24, CMS/HCC V28) Chronic kidney disease, stage 3b (CMS/HCC V24, CMS/HCC V28) Non-ST elevation (NSTEMI) myocardial infarction (CMS/HCC V24, CMS/HCC V28) Chronic systolic (congestive) heart failure (CMS/HCC V24, CMS/HCC V28) Atelectasis Essential (primary) hypertension Hyperlipidemia, unspecified Acute kidney failure, unspecified (CMS/HCC V24) Other acidosis Hypokalemia Hypo-osmolality and hyponatremia Ischemic cardiomyopathy Atrioventricular block, complete (CMS/HCC V24, CMS/HCC V28) Presence of cardiac pacemaker VITAMIN B12 AND FOLATE Routine 5:47 AM EST Cardiogenic shock (CMS/HCC V24, CMS/HCC V28) Acute on chronic systolic (congestive) heart failure (CMS/HCC V24, CMS/HCC V28) Chronic kidney disease, stage 3b (CMS/HCC V24, CMS/HCC V28) Non-ST elevation (NSTEMI) myocardial infarction (CMS/HCC V24, CMS/HCC V28) Chronic systolic (congestive) heart failure (CMS/HCC V24, CMS/HCC V28) Atelectasis Essential (primary) hypertension Hyperlipidemia, unspecified Acute kidney failure, unspecified (CMS/HCC V24) Other acidosis Hypokalemia Hypo-osmolality and hyponatremia Ischemic cardiomyopathy Atrioventricular block, complete (CMS/HCC V24, CMS/HCC V28) Presence of cardiac pacemaker COMPREHENSIVE METABOLIC PANEL Routine 08/05/2025 5:47 AM EST Cardiogenic shock (CMS/HCC V24, CMS/HCC V28) Acute on chronic systolic (congestive) heart failure (CMS/HCC V24, CMS/HCC V28) Chronic kidney disease, stage 3b (CMS/HCC V24, CMS/HCC V28) Non-ST elevation (NSTEMI) myocardial infarction (CMS/HCC V24, CMS/HCC V28) Chronic systolic (congestive) heart failure (CMS/HCC V24, CMS/HCC V28) Atelectasis Essential (primary) hypertension Hyperlipidemia, unspecified Acute kidney failure, unspecified (CMS/HCC V24) Other acidosis Hypokalemia Hypo-osmolality and hyponatremia Ischemic cardiomyopathy Atrioventricular block, complete (CMS/HCC V24, CMS/HCC V28) Presence of cardiac pacemaker COMPLETE BLOOD COUNT Routine 08/05/2025 5:47 AM EST Cardiogenic shock (CMS/HCC V24, CMS/HCC V28) Acute on chronic systolic (congestive) heart failure (CMS/HCC V24, CMS/HCC V28) Chronic kidney disease, stage 3b (CMS/HCC V24, CMS/HCC V28) Non-ST elevation (NSTEMI) myocardial infarction (CMS/HCC V24, CMS/HCC V28) Chronic systolic (congestive) heart failure (CMS/HCC V24, CMS/HCC V28) Atelectasis Essential (primary) hypertension Hyperlipidemia, unspecified Acute kidney failure, unspecified (CMS/HCC V24) Other acidosis Hypokalemia Hypo-osmolality and hyponatremia Ischemic cardiomyopathy Atrioventricular block, complete (CMS/HCC V24, CMS/HCC V28) Presence of cardiac pacemaker from Last 3 Months Results * (ABNORMAL) Complete blood count (08/12/2025 5:31 AM EST) Only the most recent of2 resultswithin the time period is included. WBC 4.8 4.8 - 10.8 K/mcL LAB HEMETOLOGY METHOD 08/12/2025 9:18 AM [facility] RBC 3.50(L) 4.50 - 5.50 M/mcL LAB HEMETOLOGY METHOD 08/12/2025 9:18 AM [facility] LAB Hemoglobin 10.3(L) 13.5 - 17.5 g/dL LAB HEMETOLOGY METHOD 08/12/2025 9:18 AM [facility] LAB Hematocrit 34.6(L) 42.0 - 54.0 % LAB HEMETOLOGY METHOD 08/12/2025 9:18 AM [facility] MCV 97.7 79.0 - 98.0 FL LAB HEMETOLOGY METHOD 08/12/2025 9:18 AM [facility] LAB MCH 29.1 27.0 - 32.0 pcg LAB HEMETOLOGY METHOD 08/12/2025 9:18 AM [facility] MCHC 29.8(L) 32.0 - 37.0 g/dL LAB HEMETOLOGY METHOD 08/12/2025 9:18 AM [facility] RDW 17.0(H) 11.0 - 15.0 % LAB HEMETOLOGY METHOD 08/12/2025 9:18 AM [facility] Platelets 144 130 - 400 K/mcL LAB HEMETOLOGY METHOD 08/12/2025 9:18 AM [facility] MPV 10.2 7.0 - 11.0 FL LAB HEMETOLOGY METHOD 08/12/2025 9:18 AM [facility] LAB NRBC 0.0 <1.0 % LAB HEMETOLOGY METHOD 08/12/2025 9:18 AM [facility] LAB NRBC Absolute 0.00 <0.10 K/mcL LAB HEMETOLOGY METHOD 08/12/2025 9:18 AM [facility] Blood Venous blood specimen / Unknown Venipuncture / Unknown 08/12/2025 5:31 AM EST 08/12/2025 9:17 AM EST Roe Mendoza MD LAB BLOOD ORDERABLES Final Resul t [facility] [address] [place] [address], [place] [phone] * (ABNORMAL) Basic metabolic panel (08/12/2025 5:31 AM EST) Sodium 142 133 - 145 mmol/L 08/12/2025 10:12 AM [facility] Potassium 5.0 3.5 - 5.5 mmol/L 08/12/2025 10:12 AM [facility] Chloride 107 96 - 110 mmol/L 08/12/2025 10:12 AM [facility] CO2 19(L) 21 - 32 mmol/L 08/12/2025 10:12 AM [facility] Anion Gap 16(H) 3 - 11 08/12/2025 10:12 AM [facility] Glucose 80 70 - 100 mg/dL 08/12/2025 10:12 AM [facility] BUN 38(H) 5 - 25 mg/dL 08/12/2025 10:12 AM [facility] Creatinine 2.51(H) 0.70 - 1.30 mg/dL 08/12/2025 10:12 AM [facility] eGFR 26(L) >=60 mL/min/1. 73m2 08/12/2025 10:12 AM [facility] Comment:Calculation based on the Chronic Kidney Disease Epidemiology Collaboration (CKD-EPI) equation refit without adjustment for race. BUN/Creatinine Ratio 15.1 08/12/2025 10:[address] [facility] Calcium 8.3(L) 8.5 - 10.5 mg/dL 08/12/2025 10:[address] [facility] Blood Venous blood specimen / Unknown Venipuncture / Unknown 08/12/2025 5:31 AM EST 08/12/2025 9:17 AM EST us Roe Mendoza MD LAB BLOOD ORDERABLES Final Resul t [facility] [address] [place] [address], [place] [phone] * Vitamin B12 and folate (08/05/2025 5:47 AM EST) Pathologist [facility] Vitamin B-12 591 250 - 900 pcg/mL LAB CHEMISTRY METHOD 08/05/2025 10:[address] [facility] Folate 4.2 2.8 - 17.0 ng/ml LAB CHEMISTRY METHOD 08/05/2025 10:[address] [facility] Blood Venous blood specimen / Unknown Venipuncture / Unknown 08/05/2025 5:47 AM EST 08/05/2025 9:02 AM EST us Roe Mendoza MD LAB BLOOD ORDERABLES Final Resul t [facility] [address] [place] [address], [place] [phone] * (ABNORMAL) Vitamin D 25 hydroxy (08/05/2025 5:47 AM EST) Vit D, 25-Hydroxy 24.1(L) 30.0 - 80.0 ng/mL LAB CHEMISTRY METHOD 08/05/2025 10:[address] [facility] Blood Venous blood specimen / Unknown Venipuncture / Unknown 08/05/2025 5:47 AM EST 08/05/2025 9:02 AM EST Roe Mendoza MD LAB BLOOD ORDERABLES Final Resul t [facility] [address] [place] [address], * (ABNORMAL) Comprehensive metabolic panel (08/05/2025 5:47 AM EST) Sodium 141 133 - 145 mmol/L LAB CHEMISTRY METHOD 08/05/2025 9:52 AM [facility] Potassium 4.1 3.5 - 5.5 mmol/L LAB CHEMISTRY METHOD 08/05/2025 9:52 AM [facility] Chloride 105 96 - 110 mmol/L LAB CHEMISTRY METHOD 08/05/2025 9:52 AM [facility] CO2 25 21 - 32 mmol/L LAB CHEMISTRY METHOD 08/05/2025 9:52 AM [facility] Anion Gap 11 3 - 11 LAB CHEMISTRY METHOD 08/05/2025 9:52 AM [facility] Glucose 90 70 - 100 mg/dL LAB CHEMISTRY METHOD 08/05/2025 9:52 AM [facility] BUN 42(H) 5 - 25 mg/dL LAB CHEMISTRY METHOD 08/05/2025 9:52 AM [facility] Creatinine 2.40(H) 0.70 - 1.30 mg/dL LAB CHEMISTRY METHOD 08/05/2025 9:52 AM [facility] eGFR 28(L) >=60 mL/min/1. 73m2 LAB CHEMISTRY METHOD 08/05/2025 9:52 AM [facility] Comment:Calculation based on the Chronic Kidney Disease Epidemiology Collaboration (CKD-EPI) equation refit without adjustment for race. BUN/Creatinine Ratio 17.5 LAB CHEMISTRY METHOD 08/05/2025 9:52 AM [facility] Calcium 8.5 8.5 - 10.5 mg/dL LAB CHEMISTRY METHOD 08/05/2025 9:52 AM [facility] AST (SGOT) 22 10 - 42 unit/L LAB CHEMISTRY METHOD 08/05/2025 9:52 AM [facility] ALT (SGPT) 28 10 - 60 unit/L LAB CHEMISTRY METHOD 08/05/2025 9:52 AM [facility] Alkaline Phosphatase 146(H) 42 - 121 unit/L LAB CHEMISTRY METHOD 08/05/2025 9:52 AM [facility] Total Protein 6.4 6.0 - 8.0 g/dL LAB CHEMISTRY METHOD 08/05/2025 9:52 AM [facility] Albumin 3.0(L) 3.2 - 5.0 g/dL LAB CHEMISTRY METHOD 08/05/2025 9:52 AM [facility] Total Bilirubin 0.5 0.0 - 1.4 mg/dL LAB CHEMISTRY METHOD 08/05/2025 9:52 AM [facility] Blood Venous blood specimen / Unknown Venipuncture / Unknown 08/05/2025 5:47 AM EST 08/05/2025 9:02 AM EST us Roe Mendoza MD LAB BLOOD ORDERABLES Final Resul t [facility] [address] [place] [address], from Last 3 Months Insurance Care Teams Tray Packer Relationship Specialty Start Date End Date Roe Mendoza MD [address] [place], [place] [phone] PCP - General Geriatric Medicine 08/05/25
--- OUTSIDE RECORDS SUMMARY | 2025-09-06 14:42 | XMS_ITS | Encounter Summary ---
Author Organization [facility] Address [address] [place] [address] Care Team Providers Care Equipment Maint Tech Name Role Phone Roe Mendoza MD Primary Care Provider [phone] Encounter Details Date Type Department Care Team (Late st Contact Info) Description 08/17/2025 Lab Requisition [facility] [address] [facility] [place] [phone] Roe Mendoza MD [address] [place] [address] Acute on chronic systolic (congestive) heart failure (CMS/HCC V24, CMS/HCC V28); Chronic kidney disease, stage 3b (CMS/HCC V24, CMS/HCC V28) Social History Tobacco Use Types Packs/Day Years Used Date Smoking Tobacco: Never Assessed Sex and Gender Information Value Date Recorded Sex Assigned at Not on file Legal Sex Male 3:40 PM EDT Gender Identity Not on file Sexual Orientation Not on file documented as of this encounter Plan of Treatment Not on file documented as of this encounter Visit Diagnoses Diagnosis Acute on chronic systolic (congestive) heart failure (CMS/HCC V24, CMS/HCC V28) Chronic kidney disease, stage 3b (CMS/HCC V24, CMS/HCC V28) documented in this encounter Care Teams Equipment Maint Tech Relationship Specialty Start Date End Date Roe Mendoza MD [address] [place] [id number] PCP - General Geriatric Medicine 08/05/25 documented as of this encounter
--- OUTSIDE RECORDS SUMMARY | 2025-09-06 14:42 | XMS_ITS | Clinical Summary ---
Author Organization [facility] Address [address] [facility] [address] [place] [phone] Phone Care Team Providers Care Lawn Service Worker Name Role Phone Chris Espino MD Primary Care Provider Encounters Date Type Department Care Team Description 08/22/2025 11:00 AM EST Home Care Visit [facility] [address] [place], [place] [phone] Destini Garcia RN NON ADMIT HOME HEALTH VISIT 08/22/2025 Home Care Visit [facility] [address] [place], [place] [phone] Bev Brown, RN CASE COMMUNICATION 08/21/2025 Home Care Visit [facility] [address] [place], [place] [phone] Bridget Eaton, ALICJA CASE COMMUNICATION 08/20/2025 Home Care Visit [facility] [address] [place], [place] [phone] Bridget Eaton, ALICJA CASE COMMUNICATION 08/18/2025 Home Care Visit [facility] [address] [place], [place] [phone] Argentina Mayo, ALICJA CASE COMMUNICATION 08/18/2025 Home Care Visit [facility] [address] [place], [place] [phone] Argentina Mayo, RN CASE COMMUNICATION 08/10/2025 Orders Only [facility] [address] [place], [place] [phone] Homehealth, Interface ProviderMD from Last 3 Months [...] Orientation Not on file Plan of Treatment Not on file Medical Devices Not on file Insurance [employer] H[employer] REPLACEMENT [employer] H[employer] REPLACEMENT MEDICARE HMO [place] [address] [address] [place] [address] MEDICARE HMO REPLACEMENT MEDICARE HMO [place] [address] [place] [address] MEDICARE HMO REPLACEMENT Member Subscriber Plan / Payer (Ef fective 2025-Present) Name:Aaron Valverde Relation to Subscriber:Self Name:Aaron Valverde Payer ID:Not on file Type:Medicare Address: [place] [id number] Care Teams Lawn Service Worker Relationship Specialty Start Date End Date Chris Espino MD [address] [place] [address] Drive [address] [place] [address] PCP - General Internal Medicine 08/10/25 Additional Source Comments The information contained in this document represents components of the legal health record. It is not the complete legal health record.[facility]
--- OUTSIDE RECORDS SUMMARY | 2025-09-06 14:42 | XMS_ITS | Encounter Summary ---
Author Organization [facility] Address [address] [place] [address] Care Team Providers Care Association Executive Name Role Phone Roe Mendoza MD Primary Care Provider [phone] Encounter Details Date Type Department Care Team (Late st Contact Info) Description 08/05/2025 Lab Requisition [facility] - Main Lab [address] [facility] [place] [id number] Reo Mendoza MD [address] [place], [place] [phone] Cardiogenic shock (CMS/HCC V24, CMS/HCC V28); Acute on chronic systolic (congestive) heart failure (CMS/HCC V24, CMS/HCC V28); Chronic kidney disease, stage 3b (CMS/HCC V24, CMS/HCC V28); Non-ST elevation (NSTEMI) myocardial infarction (CMS/HCC V24, CMS/HCC V28); Chronic systolic (congestive) heart failure (CMS/HCC V24, CMS/HCC V28); Atelectasis; Essential (primary) hypertension; Hyperlipidemia, unspecified; Acute kidney failure, unspecified (CMS/HCC V24); Other acidosis; Hypokalemia; Hypo-osmolality and hyponatremia; Ischemic cardiomyopathy; Atrioventricular block, complete (CMS/HCC V24, CMS/HCC V28); Presence of cardiac pacemaker Social History Tobacco Use Types Packs/Day Years Used Date Smoking Tobacco: Never Assessed Sex and Gender Information Value Date Recorded Sex Assigned at Not on file Legal Sex Male 3:40 PM EDT Gender Identity Not on file Sexual Orientation Not on file documented as of this encounter Plan of Treatment Not on file documented as of this encounter Procedures Procedure Name Priority Date/Time Associated Diagnosis Comments VITAMIN B12 AND FOLATE Routine 5:47 AM [...] CMS/HCC V28) Presence of cardiac pacemaker VITAMIN D 25 HYDROXY Routine 08/05/2025 5:47 [...] hypertension Hyperlipidemia, unspecified Acute kidney failure, unspecified ([facility] V24) Other acidosis Hypokalemia Hypo-osmolality and hyponatremia Ischemic cardiomyopathy Atrioventricular block, complete (CMS/[facility] V24, CMS/[facility] V28) Presence of cardiac pacemaker COMPREHENSIVE METABOLIC PANEL Routine 08/05/2025 5:47 AM EST Cardiogenic shock ([facility] V24, [facility] V28) Acute on chronic systolic (congestive) heart failure ([facility] V24, [facility] V28) Chronic kidney disease, stage 3b (CMS/[facility] V24, [facility] V28) Non-ST elevation (NSTEMI) myocardial infarction ([facility] V24, [facility] V28) Chronic systolic (congestive) heart failure ([facility] V24, [facility] V28) Atelectasis Essential (primary) hypertension Hyperlipidemia, unspecified Acute kidney failure, unspecified (CMS/[facility] V24) Other acidosis Hypokalemia Hypo-osmolality and hyponatremia Ischemic cardiomyopathy Atrioventricular block, complete (CMS/[facility] V24, [facility] V28) Presence of cardiac pacemaker documented in this encounter Results * (ABNORMAL) Vitamin D 25 hydroxy (08/05/2025 5:47 AM EST) [facility] Vit D, 25-Hydroxy 24.1(L) 30.0 - 80.0 ng/mL LAB CHEMISTRY METHOD 08/05/2025 10:46 AM EST [facility] Blood Venous blood specimen / Unknown Venipuncture / Unknown 08/05/2025 5:47 AM EST 08/05/2025 9:02 AM EST us Roe Mendoza MD LAB BLOOD ORDERABLES Final Resul t [facility] [address] [place] [address], * Vitamin B12 and folate (08/05/2025 5:47 AM EST) [facility] Vitamin B-12 591 250 - 900 pcg/mL LAB CHEMISTRY METHOD 08/05/2025 10:16 AM [facility] Folate 4.2 2.8 - 17.0 ng/ml LAB CHEMISTRY METHOD 08/05/2025 10:16 AM [facility] Blood Venous blood specimen / Unknown Venipuncture / Unknown 08/05/2025 5:47 AM EST 08/05/2025 9:02 AM EST us Roe Mendoza MD LAB BLOOD ORDERABLES Final Resul t [facility] [address] [place] [address], * (ABNORMAL) Comprehensive metabolic panel (08/05/2025 5:47 AM EST) Sodium 141 133 - 145 mmol/L LAB CHEMISTRY METHOD 08/05/2025 9:52 AM [facility] Potassium 4.1 3.5 - 5.5 mmol/L LAB CHEMISTRY METHOD 08/05/2025 9:52 AM [facility] Chloride 105 96 - 110 mmol/L LAB CHEMISTRY METHOD 08/05/2025 9:52 AM [facility] CO2 25 21 - 32 mmol/L LAB CHEMISTRY METHOD 08/05/2025 9:52 AM [facility] Anion Gap 11 3 - 11 LAB CHEMISTRY METHOD 08/05/2025 9:52 AM [facility] Glucose 90 70 - 100 mg/dL LAB CHEMISTRY METHOD 08/05/2025 9:52 AM [facility] BUN 42(H) 5 - 25 mg/dL LAB CHEMISTRY METHOD 08/05/2025 9:52 AM [facility] Creatinine 2.40(H) 0.70 - 1.30 mg/dL LAB CHEMISTRY METHOD 08/05/2025 9:52 AM [facility] eGFR 28(L) >=60 mL/min/1. 73m2 LAB CHEMISTRY METHOD 08/05/2025 9:52 AM [facility] Comment:Calculation based on the Chronic Kidney Disease Epidemiology Collaboration (CKD-EPI) equation refit without adjustment for race. BUN/Creatinine Ratio 17.5 LAB CHEMISTRY METHOD 08/05/2025 9:52 AM [facility] Calcium 8.5 8.5 - 10.5 mg/dL LAB CHEMISTRY METHOD 08/05/2025 9:52 AM [facility] AST (SGOT) 22 10 - 42 unit/L LAB CHEMISTRY METHOD 08/05/2025 9:52 AM [facility] ALT (SGPT) 28 10 - 60 unit/L LAB CHEMISTRY METHOD 08/05/2025 9:52 AM [facility] Alkaline Phosphatase 146(H) 42 - 121 unit/L LAB CHEMISTRY METHOD 08/05/2025 9:52 AM [facility] Total Protein 6.4 6.0 - 8.0 g/dL LAB CHEMISTRY METHOD 08/05/2025 9:52 AM [facility] Albumin 3.0(L) 3.2 - 5.0 g/dL LAB CHEMISTRY METHOD 08/05/2025 9:52 AM [facility] Total Bilirubin 0.5 0.0 - 1.4 mg/dL LAB CHEMISTRY METHOD 08/05/2025 9:52 AM [facility] Blood Venous blood specimen / Unknown Venipuncture / Unknown 08/05/2025 5:47 AM EST 08/05/2025 9:02 AM EST us Roe Mendoza MD LAB BLOOD ORDERABLES Final Resul t [facility] [address] [place] [address], * (ABNORMAL) Complete blood count (08/05/2025 5:47 AM EST) [facility] WBC 6.1 4.8 - 10.8 K/mcL LAB HEMETOLOGY METHOD 08/05/2025 9:24 AM [facility] RBC 3.60(L) 4.50 - 5.50 M/mcL LAB HEMETOLOGY METHOD 08/05/2025 9:24 AM [facility] Hemoglobin 10.7(L) 13.5 - 17.5 g/dL LAB HEMETOLOGY METHOD 08/05/2025 9:24 AM [facility] Hematocrit 34.1(L) 42.0 - 54.0 % LAB HEMETOLOGY METHOD 08/05/2025 9:24 AM [facility] MCV 95.5 79.0 - 98.0 FL LAB HEMETOLOGY METHOD 08/05/2025 9:24 AM [facility] MCH 30.0 27.0 - 32.0 pcg LAB HEMETOLOGY METHOD 08/05/2025 9:24 AM [facility] MCHC 31.4(L) 32.0 - 37.0 g/dL LAB HEMETOLOGY METHOD 08/05/2025 9:24 AM [facility] RDW 16.5(H) 11.0 - 15.0 % LAB HEMETOLOGY METHOD 08/05/2025 9:24 AM [facility] Platelets 155 130 - 400 K/[facility] LAB HEMETOLOGY METHOD 08/05/2025 9:24 AM [facility] MPV 10.1 7.0 - 11.0 FL LAB HEMETOLOGY METHOD 08/05/2025 9:24 AM [facility] NRBC 0.0 <1.0 % LAB HEMETOLOGY METHOD 08/05/2025 9:24 AM [facility] NRBC Absolute 0.00 <0.10 K/mcL LAB HEMETOLOGY METHOD 08/05/2025 9:24 AM EST [facility] Blood Venous blood specimen / Unknown Venipuncture / Unknown 08/05/2025 5:47 AM EST 08/05/2025 9:02 AM EST Roe Mendoza MD LAB BLOOD ORDERABLES Final Resul t [facility] [address] [place] [address], documented in this encounter Visit Diagnoses Diagnosis Cardiogenic shock ([facility]24, [facility] V28) Cardiogenic shock Acute on chronic systolic (congestive) heart failure ([facility] V24, [facility] V28) Chronic kidney disease, stage 3b ([facility] V24, [facility] V28) Non-ST elevation (NSTEMI) myocardial infarction ([facility] V24, [facility] V28) Chronic systolic (congestive) heart failure ([facility] V24, [facility] V28) Atelectasis Pulmonary collapse Essential (primary) hypertension Unspecified essential hypertension Hyperlipidemia, unspecified Acute kidney failure, unspecified ([facility] V24) Acute kidney failure, unspecified Other acidosis Hypokalemia Hypopotassemia Hypo-osmolality and hyponatremia Ischemic cardiomyopathy Other specified forms of chronic ischemic heart disease Atrioventricular block, complete ([facility] V24, [facility] V28) Atrioventricular block, complete Presence of cardiac pacemaker Cardiac pacemaker in situ documented in this encounter Care Teams Association Executive Relationship Specialty Start Date End Date Roe Mendoza MD [address] [place] [id number] PCP - General Geriatric Medicine 08/05/25 documented as of this encounter
--- OUTSIDE RECORDS SUMMARY | 2025-09-06 14:42 | XMS_ITS | Encounter Summary ---
Author Organization [facility] Address [address] [place] [address] Care Team Providers Care High Pressure Operator Name Role Phone Roe Mendoza MD Primary Care Provider [phone] Encounter Details Date Type Department Care Team (Late st Contact Info) Description 08/11/2025 Lab Requisition [facility] - Main Lab [address] [facility] [place] [place] [phone] Roe Mendoza MD [address] [place], [place] [phone] Acute on chronic systolic (congestive) heart failure (CMS/HCC V24, CMS/HCC V28); Chronic kidney disease, stage 3b (CMS/HCC V24, CMS/HCC V28); Cardiogenic shock (CMS/HCC V24, CMS/HCC V28) Social History Tobacco [...] CMS/HCC V28) Chronic kidney disease, stage 3b ([facility] V24, [facility] V28) Cardiogenic shock ([facility] V24, [facility] V28) documented in this encounter Results * (ABNORMAL) Complete blood count (08/12/2025 5:31 AM EST) WBC 4.8 4.8 - 10.8 K/mcL LAB [...] FL LAB HEMETOLOGY METHOD 08/12/2025 9:[address] [facility] NRBC 0.0 <1.0 % LAB HEMETOLOGY METHOD 08/12/2025 9:[address] [facility] NRBC Absolute 0.00 <0.10 K/mcL LAB HEMETOLOGY METHOD 08/12/2025 9:18 AM [facility] Blood Venous blood specimen / Unknown Venipuncture / Unknown 08/12/2025 5:31 AM EST 08/12/2025 9:17 AM EST us Roe Mendoza MD LAB BLOOD ORDERABLES Final Resul t [facility] [address] [place] [address], [place] [phone] * (ABNORMAL) Basic metabolic panel (08/12/2025 5:31 [...] 0.70 - 1.30 mg/dL 08/12/2025 10:12 AM EST [facility] eGFR 26(L) >=60 mL/min/1. 73m2 08/12/2025 10:[address] [facility] Comment:Calculation based on the Chronic [...] Resul t [facility] [address] [place] [address], documented in this encounter Visit Diagnoses Diagnosis Acute on chronic systolic (congestive) heart failure (CMS/HCC V24, CMS/HCC V28) Chronic kidney disease, stage 3b (CMS/HCC V24, CMS/HCC V28) Cardiogenic shock (CMS/HCC V24, CMS/HCC V28) Cardiogenic shock documented in this encounter Care Teams High Pressure Operator Relationship Specialty Start Date End Date Roe Mendoza MD [address] [place] [id number] PCP - General Geriatric Medicine 08/05/25 documented as of this encounter
== END 2025-09-06 12:00 | disposition home or self-care (01) ==
LOC: HO.HKA 11:07
PROVIDERS: PCP Student in an Organized Health Care Education/Training Program; Visit Provider Internal Medicine Hypertension Specialist
DX: N18.32 Chronic kidney disease, stage 3b (principal); I50.23 Acute on chronic systolic (congestive) heart failure
CPT/HCPCS: 99214

== ENCOUNTER → 2025-09-06 11:06 | Outpatient (BNVA) | payer MEDICARE, SELFPAY | PROVIDERS: PCP Student in an Organized Health Care Education/Training Program; Visit Provider Internal Medicine Hypertension Specialist | DX: I13.0 Hypertensive heart and chronic kidney disease with heart failure and stage 1 through stage 4 chronic kidney disease, or unspecified chronic kidney disease (principal); I50.23 Acute on chronic systolic (congestive) heart failure; N18.4 Chronic kidney disease, stage 4 (severe); Z87.891 Personal history of nicotine dependence; Z79.1 Long term (current) use of non-steroidal anti-inflammatories (NSAID); Z79.84 Long term (current) use of oral hypoglycemic drugs | CPT/HCPCS: 99212 ==

== ENCOUNTER 2025-09-12 13:38 | Outpatient (AMB) | payer MEDICARE, SELFPAY ==
--- OUTSIDE RECORDS SUMMARY | 2025-02-11 08:00 | XMS_ITS ---
Author Organization [facility] Address [address] [place] [address] Care Team Providers Care Risk Specialist Name Role Phone Jose Manuel Escalera MD Primary Care Provider Brandon Stokes Unavailable [phone] Medications Medication SIG (Take, Route, Frequency, Duration) [...] Active Encounters Encounter Location Date Provider Diagnosis [facility] [address] [place] [address] 02/11/2025 Brandon Lozano Plan Of Treatment No Information Progress Notes * Aaron VALVERDEDOB:1950 (75 yo M)Acc No.[id number]:02/11/2025 Progress Note Patient: Aaron HYMAN Provider: Salinas Lozano DPM :1950 A ge:74 Y S ex:Male Date:02/11/2025 Address:[address] [place] [address] [address] [id number] Pcp:Jose Manuel Escalera MD Subjective: * Chief [...] 0 02/11/2025 Generated for Laura Falcon/Yovana on: 11/13/2024 05:04 PM EST
[2025-09-12 14:03] VITALS: BP 100/52; PULSE 75; BMI 40.7
--- NOTE | 2025-09-12 14:03 | A.OFFVIS_ITS ---
Vital Signs 09/12/25 14:03 Height 5 ft 8 in Weight 267 lb 10.259 oz BMI 40.7 BP 100/52 L Blood Pressure Location Rt brachial Position Sitting Pulse 75 Pulse Source Monitor Intake Visit Reasons: 2 week f/up [facility] d/c Assembler Gold Frame Required: No Allergies No Known Allergies (No Known Allergies*) Allergy (Verified 09/12/25 14:09) Medication List - Last Reconciled 09/12/25 by [place] [employer] albuterol sulfate 90 mcg/actuation (Ventolin HFA) 1 puff inhalation QID PRN amiodarone 200 mg PO DAILY apixaban (Eliquis) 5 mg PO BID 90 days atorvastatin 40 mg PO BEDTIME bumetanide 2 mg PO DAILY 90 days clopidogrel 75 mg PO DAILY dapagliflozin propanediol (Farxiga) 10 mg PO DAILY Donut pillow As directed famotidine 20 mg PO DAILY foam bandage (Mepilex) As directed ipratropium-albuterol 0.5 mg-3 mg(2.5 mg base)/3 mL 3 mL inhalation Q6H PRN isosorbide mononitrate ER 30 mg PO DAILY melatonin 10 mg PO BEDTIME metoprolol succinate ER 25 mg PO DAILY [Spacer As directed] spironolactone 25 mg PO DAILY Held on 08/25/25. Instructions: hold until follow up labs friday/discussion with cardiology trazodone 25 mg (1/2 x 50 mg) PO BEDTIME HPI HPI 2 week f/up [facility] d/c: Details: Aaron is a 75-year-old male with past medical history of hypertension, hyperlipidemia, chronic kidney disease, CVA, VFib arrest 03/2024, status post ICD placement, CAD/PR, ischemic cardiomyopathy, heart failure with preserved EF with recurrent admissions who 07/2025 with cardiac catheterization showing proximal LAD 95% stenosis, TRINA was placed. He was discharged with Plavix and Eliquis. He had admission to [facility] earlier this month with heart failure with reduced EF. Echocardiogram showed EF 20-25%, grade 2 diastolic dysfunction with wall motion abnormality same as prior. He was discharged with Bumex 2 mg daily. Today he reports that he has been doing well since his last discharge a few weeks ago.He reports his breathing is comfortable. He sleeps with 2 pillows which is his norm. His leg edema is down and he is currently pleased with how they look. No chest discomfort at rest or with activity. No heart palpitations, lightheadedness, presyncope syncope. He admits to being mostly sedentary. He is compliant with meds. is present. [facility] Medical History Hypertension Advance care planning Debility Chronic kidney disease (CKD), stage 4 Screening for lung cancer Pressure injury CKD stage 3b, GFR 30-44 ml/min COPD (chronic obstructive pulmonary disease) Morbid obesity with BMI of 40.0-44.9, adult Biventricular ICD (implantable cardioverter-defibrillator) in place Paroxysmal atrial flutter Coronary artery disease Ischemic cardiomyopathy Atrial flutter History of cardiac arrest Complete heart block Ventilator associated pneumonia STEMI (ST elevation myocardial infarction) Hx of snf use of blood thinners Surgical History S/P ICD (internal cardiac defibrillator) procedure (04/2024) Family History Mother No problems noted. Father No problems noted. Social History Household Members: Spouse Household Members Other:: Housing: House Are you a primary manager career to a significant other at home: No Do you presently have visiting nurse or other home services: No Patient Tobacco Use Status: Former Tobacco user Tobacco use type: Cigarette e-Cigarette/Vaping Use: Never Used Second Hand Smoke Exposure: No Advance Directives Date on File: 09/12/24 service: No Current occupational status: retired Cognitive needs: No Hearing needs: No Vision needs: Yes (reading glasses) Review of Systems Const All systems reviewed & are unremarkable except as noted in HPI and below ENT Reports dizziness Card Denies chest pain, Denies chest pain at rest, Denies chest pain with activity, Denies rapid heart rate, Denies pedal edema, Denies edema, Denies leg edema, Denies lightheadedness, Denies palpitations, Denies dyspnea, Reports dyspnea on exertion and Denies orthopnea Resp Denies cough, Denies dyspnea and Reports dyspnea on exertion GI Denies hematochezia and Denies change in stool character Musc Details: in wheelchair Reports abnormal gait, Denies limited range of motion, Denies muscle cramps, Reports muscle weakness, Denies numbness, Denies radiating pain into limb, Denies stiffness and Denies tingling Neuro Reports abnormal gait, Reports dizziness, Denies numbness and Denies tingling Endo Denies palpitations Physical Exam Vital Signs: BMI result Body Mass Index 40.7 Const General: cooperative, healthy appearing, comfortable and no acute distress Orientation/consciousness: patient oriented x3 Neck Neck: Yes normal visual inspection Resp Effort & Inspection: normal respiratory effort Auscultation: clear to auscultation bilaterally, no rales, no rhonchi and no wheezes Cardio Rate: regular rate Rhythm: regular rhythm Heart sounds: S1 normal heart sound present, S2 normal heart sound present, no gallops, no murmurs and no rubs Neuro General: patient oriented x3 Extrem Other: +1 bilateral ankle swelling Psych Appearance: grossly normal Mental Status: mental status grossly normal Speech and movement: Normal speech and movement present Office Procedures EKG Details: Today, read by me, atrial sensed, ventricular paced, with one PVC, rate 75 [id number], Complete Assessment & Plan Assessment & Plan (1) Coronary artery disease: Code(s): I25.10 - Atherosclerotic heart disease of [place] coronary artery without angina pectoris Category: Medical Plan: VFib arrest March 2024 with successful resuscitation. He was found to have anterior STEMI. Cardiac catheterization showed mid PODIATRIC AIDE of the LAD with minimal collaterals, left circumflex 70% proximal stenosis, RCA proximal PODIATRIC AIDE. Notes indicate he could not be revascularized surgically. He has had ischemic cardiomyopathy with EF 30-35%. He underwent Bi V ICD was placement in past. He had recurrent NSTEMI 07/26/2025 requiring intra-aortic balloon pump, catheterization showed significant LAD stenosis and TRINA placed. He did have heart failure admission at [facility] a few weeks later where echocardiogram 08/22/2025 showed EF 20-25%, grade 2 diastolic dysfunction, wall motion abnormality similar to prior. Currently clinically stable without anginal symptoms. He is on Plavix and Eliquis. He is currently on hydralazine, Isosorbide, Metoprolol, Farxiga, for neurohormonal modulation. He is not on Marlo or Arb due to chronic kidney disease. Continue current management. Cardiology follow-up 3 months, sooner if needed -to evaluate for heart failure symptoms (2) Ischemic cardiomyopathy: Code(s): I25.5 - Ischemic cardiomyopathy Category: Medical Plan: History of ischemic cardiomyopathy. Most recent echo as above. He does have a Bi V ICD in place and on last check V paces greater than 99%. On exam he does have some mild ankle edema otherwise does not appear fluid overloaded. Continue low-salt diet, less than 2 g daily. Continue home weight monitoring and call if weight gain over 3 lb in a day or 5 lb in a week. Continue Lasix 60 mg daily. He does have known chronic kidney disease and follows with Nephrology. Signs and symptoms of heart failure reviewed with him. (3) S/P cardiac cath: Comment: 07/26/2025, intra-aortic balloon pump placed. Cardiac catheterization 07/29/2025 proximal LAD 95% stenosis, culprit lesion, TRINA placed Code(s): Z98.890 - Other specified postprocedural states Category: Surgical (4) Biventricular ICD (implantable cardioverter-defibrillator) in place: Comment: [employer] Bi V ICD in place. Functioning normally on interrogation last visit with cardiology. Continue follow up with cardiology History of Sudden Cardiac Code(s): Z95.810 - Presence of automatic (implantable) cardiac defibrillator Category: Medical Plan: [employer] Bi V ICD in place. Functioning normally on interrogation last visit. Battery 7 years. He has remote monitoring in use. Will plan for office interrogation next visit. (5) Hypertension: Comment: - Maintain current antihypertensive therapy - Pressures well controlled in clinic today - Reinforced need of good pressure control and medication adherence Code(s): I10 - Essential (primary) hypertension Category: Medical Qualifiers: Hypertension type: unspecified Qualified Code(s): I10 - Essential (primary) hypertension Plan: Blood pressure goal less than 130/80. Blood pressure normal at this time. Meds reviewed and no changes. (6) Paroxysmal atrial flutter: Comment: - Continue amiodarone and Eliquis - HR well controlled today - Prior EKG reviewed and showed atrial sensed and V Paced Code(s): I48.92 - Unspecified atrial flutter Category: Medical Plan: Notes indicate history of paroxysmal atrial flutter. EKG today is showing atrial sensed, ventricular paced rhythm. He has not felt any heart palpitations. Will continue to follow remotely. Continue Eliquis for anticoagulation. Continue carvedilol for heart rate control. (7) History of cardiac arrest: Comment: March 2024 Code(s): Z86.74 - Personal history of sudden cardiac arrest Category: Medical Plan: As above (8) Hospital discharge follow-up: Code(s): Z09 - Encounter for follow-up examination after completed treatment for conditions other than malignant neoplasm Category: Medical Plan: Hospital notes reviewed. Plan I reviewed the patient's recent clinical course, including his recent MIs and new LAD stent. I explained that his heart's pump function is weak, and his medications are aimed at improving this and managing fluid. We discussed the complexity of heart failure management, noting that it often involves trial and error to find the right balance of medications for each individual, especially given his concurrent kidney disease. I provided extensive education to both the patient and his on home monitoring for fluid retention, emphasizing the importance of daily weights, assessing for edema, and monitoring for increased shortness of breath. Clear guidance was given on triggers for using an extra dose of Bumex. I stressed the need for strict adherence to a fluid restriction of less than 48 ounces per day and a low-salt diet to prevent exacerbations. I recommended a follow-up appointment in three months with Dr. Devlin but encouraged them to contact us sooner if any issues or symptoms worsen. Patient Instructions: - Continue taking Bumex 2 mg every morning. - You may take an extra pill of Bumex if you gain 3 pounds in one day or 5 pounds in a week, if your legs become more swollen, or if your breathing gets heavier. - Weigh yourself every morning on a scale after you use the bathroom and before eating or drinking. - Limit all liquids to less than 48 ounces per day. This includes water, coffee, juice, soup, and non-alcoholic beer. - Avoid adding salt to your food. - Follow up with Dr. Devlin in 3 months. - Call the office or seek urgent medical care if you have any new or worsening symptoms, such as chest pain or severe difficulty breathing. Patient was informed and verbally consented to the use of an ambient scribe for clinic note documentation during this visit. Visit time spent on chart review, interview, assessment, orders, documentation. Coding Level of Care Code Est Pt Level 4 (84626) Add On Problem Visit Only Diagnoses Coronary artery disease I25.10 Ischemic cardiomyopathy I25.5 S/P cardiac cath Z98.890 Biventricular ICD (implantable cardioverter-defibrillator) in place Z95.810 Hypertension, unspecified type I10 Hypertension type: unspecified Paroxysmal atrial flutter I48.92 History of cardiac arrest Z86.74 Hospital discharge follow-up Z09 CPT Codes EKG - CPT: 29438-[id number], Complete ([id number]) Time Spent (min) 28
--- OUTSIDE RECORDS SUMMARY | 2025-09-12 17:04 | XMS_ITS | Encounter Summary ---
Author Organization [facility] Address [address] [place] [address] Care Team Providers Care Bin Packer Name Role Phone Roe Mendoza MD Primary Care Provider [phone] Encounter Details Date Type Department Care Team (Late st Contact Info) Description 08/11/[address] [facility] - Main Lab [address] [facility] [place] [address] Roe Mendoza MD [address] [place], [place] [phone] Acute on chronic systolic (congestive) heart failure [...] CMS/HCC V28) Chronic kidney disease, stage 3b ([facility] V24, [facility] V28) Cardiogenic shock ([facility] V24, [facility] V28) documented in this encounter Results * (ABNORMAL) Complete blood count (08/12/2025 5:31 AM EST) WBC 4.8 4.8 - 10.8 K/mcL LAB HEMETOLOGY METHOD 08/12/2025 9:18 AM [facility] RBC 3.50(L) 4.50 - 5.50 M/mcL LAB HEMETOLOGY METHOD 08/12/2025 9:18 AM [facility] Hemoglobin 10.3(L) 13.5 - 17.5 g/dL LAB HEMETOLOGY METHOD 08/12/2025 9:18 AM [facility] Hematocrit 34.6(L) 42.0 - 54.0 % LAB HEMETOLOGY METHOD 08/12/2025 9:18 AM [facility] MCV 97.7 79.0 - 98.0 FL LAB HEMETOLOGY METHOD 08/12/2025 9:18 AM [facility] MCH 29.1 27.0 - 32.0 pcg LAB HEMETOLOGY METHOD 08/12/2025 9:18 AM [facility] MCHC 29.8(L) 32.0 - 37.0 g/dL LAB HEMETOLOGY METHOD 08/12/2025 9:18 AM [facility] RDW 17.0(H) 11.0 - 15.0 % LAB HEMETOLOGY METHOD 08/12/2025 9:18 AM [facility] Platelets 144 130 - 400 K/mcL LAB HEMETOLOGY METHOD 08/12/2025 9:18 AM [facility] MPV 10.2 7.0 - 11.0 FL LAB HEMETOLOGY METHOD 08/12/2025 9:18 AM EST [facility] NRBC 0.0 <1.0 % LAB HEMETOLOGY METHOD 08/12/2025 9:18 AM EST [facility] NRBC Absolute 0.00 <0.10 K/mcL LAB HEMETOLOGY METHOD 08/12/2025 9:18 AM [facility] Blood Venous blood specimen / Unknown Venipuncture / Unknown 08/12/2025 5:31 AM EST 08/12/2025 9:17 AM EST us Roe Mendoza MD LAB BLOOD ORDERABLES Final Resul t [facility] [address] [place] [address], [place] [phone] * (ABNORMAL) Basic metabolic panel (08/12/2025 5:31 AM EST) Sodium 142 133 - 145 mmol/L 08/12/2025 10:12 AM [facility] Potassium 5.0 3.5 - 5.5 mmol/L 08/12/2025 10:12 AM [facility] Chloride 107 96 - 110 mmol/L 08/12/2025 10:12 AM [facility] CO2 19(L) 21 - 32 mmol/L 08/12/2025 10:12 AM [facility] Anion Gap 16(H) 3 - 11 08/12/2025 10:12 AM [facility] Glucose 80 70 - 100 mg/dL 08/12/2025 10:12 AM [facility] BUN 38(H) 5 - 25 mg/dL 08/12/2025 10:12 AM [facility] Creatinine 2.51(H) 0.70 - 1.30 mg/dL 08/12/2025 10:12 AM EST [facility] eGFR 26(L) >=60 mL/min/1. 73m2 08/12/2025 10:12 AM EST [facility] Comment:Calculation based on the Chronic Kidney Disease Epidemiology Collaboration (CKD-EPI) equation refit without adjustment for race. BUN/Creatinine Ratio 15.1 08/12/2025 10:12 AM EST [facility] Calcium 8.3(L) 8.5 - 10.5 mg/dL 08/12/2025 10:12 AM EST [facility] Blood Venous blood specimen / Unknown Venipuncture / Unknown 08/12/2025 5:31 AM EST 08/12/2025 9:17 AM EST Roe Mendoza MD LAB BLOOD ORDERABLES Final Resul t [facility] [address] [place] [address], documented in this encounter Visit Diagnoses Diagnosis Acute on chronic systolic (congestive) heart failure (CMS/HCC V24, CMS/HCC V28) Chronic kidney disease, stage 3b (CMS/HCC V24, CMS/HCC V28) Cardiogenic shock (CMS/HCC V24, CMS/HCC V28) Cardiogenic shock documented in this encounter Care Teams Bin Packer Relationship Specialty Start Date End Date Roe Mendoza MD [address] [place] [address] PCP - General Geriatric Medicine 08/05/25 documented as of this encounter
--- OUTSIDE RECORDS SUMMARY | 2025-09-12 17:04 | XMS_ITS | Patient Health Record ---
Author Organization [facility] Address [address] [place] [address] Care Team Providers Care Tube Turner Name Role Phone Jose Manuel Escalera MD Primary Care Provider Brandon Stokes Unavailable [phone] Allergies No Known Allergies Reason For Referral [...] atherosclerosis of arteries of lower limbs (disorder) ([id number] ) Atherosclerosis of [place] artery of both lower extremities, with unspecified presence of clinical manifestation (I70.203) Active confirmed Q7(A), Q8(2B), Q9(1B,2 C) Vital Signs Blood pressure diastolic 80 mm Hg 10/15/2024 Height 5 ft 10 in in 10/15/2024 Blood pressure systolic 117 mm Hg 10/15/2024 Weight 285 lbs 10/15/2024 BMI 40.89 kg/m2 10/15/2024 Procedures Procedure Date Ordered Date Performed Result Body Sit e 45757-[id number] NAIL, 6 OR MORE 10/15/2024 N/A 00255-EHKH SKIN LESIONS, OVER 4 10/15/2024 N/A Encounters Encounter Location Date Provider Diagnosis [facility] [address] [address] 10/15/2024 Brandon Lozano Atherosclerosis of [place] artery of both lower extremities, with unspecified presence of clinical manifestation I70.203 ; Tinea unguium B35.1 ; Pain in right toe(s) M79.674 and Pain in left toe(s) M79.[address] [facility] [address] 02/11/2025 Brandon Lozano Assessments Encounter Date Diagnosis (ICD Code) Assessment Notes Treatment Notes Treatment Clinical Notes Section Notes 10/15/2024 Atherosclerosis of [place] artery of both lower extremities, with unspecified presence of clinical manifestation (ICD-10 - I70.203) Q7(A), Q8(2B), Q9(1B,2C) 10/15/2024 Tinea unguium (ICD-10 - B35.1) 10/15/2024 Pain in right toe(s) (ICD-10 - M79.674) 10/15/2024 Pain in left toe(s) (ICD-10 - M79.675) Plan Of Treatment Pending Test Test Name Order Date [id number] NAIL, 6 OR MORE 02/13/2021 66183-[id number] NAIL, 6 OR MORE 05/29/2021 73120-KUZBAJJ NAIL, 6 OR MORE 12/04/2021 02182-HEBIKZI NAIL, 6 OR MORE 04/05/2022 48595-LXQFPOX NAIL, 6 OR MORE 11/25/2023 23971-YVESWGU NAIL, 6 OR MORE 10/15/2024 71916-Qsmjcmba Plate 11/25/2023 86951-Fyxrhstt Plate 04/05/2022 92911-Riowjltv Plate 05/29/2021 68619-HEUO SKIN LESIONS, OVER 4 05/29/20 24016-VHTX SKIN LESIONS, OVER 4 04/05/20 55577-YZDG SKIN LESIONS, OVER 4 12/05/19 77706-HZQP SKIN LESIONS, OVER 4 11/25/19 18773-DLCY SKIN LESIONS, OVER 10/15/19 48040-TDXW SKIN LESIONS, 2 TO 4 02/14/20 21 Insurance Providers Payer Name Payer Address Payer Phone Subscriber Number Group Number Insured Name Patient Relationship to Insured Coverage Start Date Coverage End Date [employer] [address] [place] [address] [phone] [id number] Aaron Valverde Self - patient is the insured Medical (General) History Medical History History ICD Code Back,Hip,and Knee pain Dementia High blood pressure Stroke Measles Mumps Chicken pox CAD Heart attack - March 25, 2024 Surgical History Surgery Date(Month/Year) Hospitalization History Reason Date(Month/Year) [facility] [place]
--- OUTSIDE RECORDS SUMMARY | 2025-09-12 17:04 | XMS_ITS | Clinical Summary ---
Author Organization [facility] Address [address] [place] [phone] Phone Care Team Providers Care Track Worker Name Role Phone Chris Espino MD Primary Care Provider [phone] Encounters Date Type Department Care Team Description 08/22/2025 11:00 AM EST Home Care Visit [facility] [address] [place], [place] [phone] Destini Garcia RN NON ADMIT HOME HEALTH VISIT 08/22/2025 Home Care Visit [facility] [address], [place] [phone] Bev Brown, RN CASE COMMUNICATION 08/21/2025 Home Care Visit [facility] [address], [place] [phone] Bridget Eaton, ALICJA CASE COMMUNICATION 08/20/2025 Home Care Visit [facility] [address], [place] [phone] Bridget Eaton, ALICJA CASE COMMUNICATION 08/18/2025 Home Care Visit [facility] [address], [place] [phone] Argentina Mayo, ALICJA CASE COMMUNICATION 08/18/2025 Home Care Visit [facility] [address], [place] [phone] Argentina Mayo, RN CASE COMMUNICATION 08/10/2025 Orders Only [facility] [address], [place] [phone] Homehealth, Interface ProviderMD from Last 3 Months [...] [place] [employer] H[place] REPLACEMENT MEDICARE HMO [place] [address] [place] [address] MEDICARE HMO REPLACEMENT MEDICARE HMO [place] [address] [place] [address] MEDICARE HMO REPLACEMENT Member Subscriber Plan / Payer (Ef fective 2025-Present) Name:Aaron Valverde Relation to Subscriber:Self Name:Aaron Valverde Payer ID:Not on file Type:Medicare Address: [place] [id number] Care Teams Track Worker Relationship Specialty Start Date End Date Chris Espino MD [address] [place] [address] Drive [address] [place] [address] PCP - General Internal Medicine 08/10/25 Additional Source Comments The information contained in this document represents components of the legal health record. It is not the complete legal health record.[facility]
--- OUTSIDE RECORDS SUMMARY | 2025-09-12 17:05 | XMS_ITS | Encounter Summary ---
Author Organization [facility] Address [address] [place] [address] Care Team Providers Care Electric Motor Mechanic Name Role Phone Roe Mendoza MD Primary Care Provider [phone] Encounter Details Date Type Department Care Team (Late st Contact Info) Description 08/05/2025 Lab Requisition [facility] - Main Lab [address] [facility] [place] [phone] Roe Mendoza MD [address] [place], [place] [phone] Cardiogenic shock (CMS/HCC V24, CMS/HCC V28); Acute [...] hypertension Hyperlipidemia, unspecified Acute kidney failure, unspecified ([facility] V24) Other acidosis Hypokalemia Hypo-osmolality and hyponatremia Ischemic cardiomyopathy Atrioventricular block, complete (CMS/[facility] V24, CMS/[facility] V28) Presence of cardiac pacemaker COMPREHENSIVE METABOLIC PANEL Routine 08/05/2025 5:47 AM EST Cardiogenic shock ([facility] V24, [facility] V28) Acute on chronic systolic (congestive) heart failure ([facility] V24, [facility] V28) Chronic kidney disease, stage 3b (CMS/[facility] V24, [facility] V28) Non-ST elevation (NSTEMI) myocardial infarction ([facility] V24, [facility] V28) Chronic systolic (congestive) heart failure ([facility] V24, [facility] V28) Atelectasis Essential (primary) hypertension Hyperlipidemia, unspecified Acute kidney failure, unspecified (CMS/[facility] V24) Other acidosis Hypokalemia Hypo-osmolality and hyponatremia Ischemic cardiomyopathy Atrioventricular block, complete (CMS/[facility] V24, CMS/[facility] V28) Presence of cardiac pacemaker documented in this encounter Results * (ABNORMAL) Vitamin D 25 hydroxy (08/05/2025 5:47 AM EST) [facility] Vit D, 25-Hydroxy 24.1(L) 30.0 - 80.0 ng/mL LAB CHEMISTRY METHOD 08/05/2025 10:46 AM EST [facility] Blood Venous blood specimen / Unknown Venipuncture / Unknown 08/05/2025 5:47 AM EST 08/05/2025 9:02 AM EST us Roe Mendoza MD LAB BLOOD ORDERABLES Final Resul t [facility] [address] [place] [address], * Vitamin B12 and folate (08/05/2025 5:47 AM EST) [facility] Vitamin B-12 591 250 - 900 pcg/mL LAB CHEMISTRY METHOD 08/05/2025 10:16 AM [facility] Folate 4.2 2.8 - 17.0 ng/ml LAB CHEMISTRY METHOD 08/05/2025 10:16 AM [facility] Blood Venous blood specimen / Unknown Venipuncture / Unknown 08/05/2025 5:47 AM EST 08/05/2025 9:02 AM EST us Roe Mendoza MD LAB BLOOD ORDERABLES Final Resul t [facility] [address] [place] [address], * (ABNORMAL) Comprehensive metabolic panel (08/05/2025 5:47 AM EST) Sodium 141 133 - 145 mmol/L LAB CHEMISTRY METHOD 08/05/2025 9:52 AM [facility] Potassium 4.1 3.5 - 5.5 mmol/L LAB CHEMISTRY METHOD 08/05/2025 9:52 AM [facility] Chloride 105 96 - 110 mmol/L LAB CHEMISTRY METHOD 08/05/2025 9:52 AM [facility] CO2 25 21 - 32 mmol/L LAB CHEMISTRY METHOD 08/05/2025 9:52 AM [facility] Anion Gap 11 3 - 11 LAB CHEMISTRY METHOD 08/05/2025 9:52 AM [facility] Glucose 90 70 - 100 mg/dL LAB CHEMISTRY METHOD 08/05/2025 9:52 AM [facility] BUN 42(H) 5 - 25 mg/dL LAB CHEMISTRY METHOD 08/05/2025 9:52 AM [facility] Creatinine 2.40(H) 0.70 - 1.30 mg/dL LAB CHEMISTRY METHOD 08/05/2025 9:52 AM [facility] eGFR 28(L) >=60 mL/min/1. 73m2 LAB CHEMISTRY METHOD 08/05/2025 9:52 AM [facility] Comment:Calculation based on the Chronic Kidney Disease Epidemiology Collaboration (CKD-EPI) equation refit without adjustment for race. BUN/Creatinine Ratio 17.5 LAB CHEMISTRY METHOD 08/05/2025 9:52 AM [facility] Calcium 8.5 8.5 - 10.5 mg/dL LAB CHEMISTRY METHOD 08/05/2025 9:52 AM [facility] AST (SGOT) 22 10 - 42 unit/L LAB CHEMISTRY METHOD 08/05/2025 9:52 AM [facility] ALT (SGPT) 28 10 - 60 unit/L LAB CHEMISTRY METHOD 08/05/2025 9:52 AM [facility] Alkaline Phosphatase 146(H) 42 - 121 unit/L LAB CHEMISTRY METHOD 08/05/2025 9:52 AM [facility] Total Protein 6.4 6.0 - 8.0 g/dL LAB CHEMISTRY METHOD 08/05/2025 9:52 AM [facility] Albumin 3.0(L) 3.2 - 5.0 g/dL LAB CHEMISTRY METHOD 08/05/2025 9:52 AM [facility] Total Bilirubin 0.5 0.0 - 1.4 mg/dL LAB CHEMISTRY METHOD 08/05/2025 9:52 AM [facility] Blood Venous blood specimen / Unknown Venipuncture / Unknown 08/05/2025 5:47 AM EST 08/05/2025 9:02 AM EST us Roe Mendoza MD LAB BLOOD ORDERABLES Final Resul t [facility] [address] [place] [address], * (ABNORMAL) Complete blood count (08/05/2025 5:47 AM EST) [facility] WBC 6.1 4.8 - 10.8 K/mcL LAB HEMETOLOGY METHOD 08/05/2025 9:24 AM [facility] RBC 3.60(L) 4.50 - 5.50 M/mcL LAB HEMETOLOGY METHOD 08/05/2025 9:24 AM [facility] Hemoglobin 10.7(L) 13.5 - 17.5 g/dL LAB HEMETOLOGY METHOD 08/05/2025 9:24 AM [facility] Hematocrit 34.1(L) 42.0 - 54.0 % LAB HEMETOLOGY METHOD 08/05/2025 9:24 AM [facility] MCV 95.5 79.0 - 98.0 FL LAB HEMETOLOGY METHOD 08/05/2025 9:24 AM [facility] MCH 30.0 27.0 - 32.0 pcg LAB HEMETOLOGY METHOD 08/05/2025 9:24 AM [facility] MCHC 31.4(L) 32.0 - 37.0 g/dL LAB HEMETOLOGY METHOD 08/05/2025 9:24 AM [facility] RDW 16.5(H) 11.0 - 15.0 % LAB HEMETOLOGY METHOD 08/05/2025 9:24 AM [facility] Platelets 155 130 - 400 K/[facility] LAB HEMETOLOGY METHOD 08/05/2025 9:24 AM [facility] MPV 10.1 7.0 - 11.0 FL LAB HEMETOLOGY METHOD 08/05/2025 9:24 AM [facility] NRBC 0.0 <1.0 % LAB HEMETOLOGY METHOD 08/05/2025 9:24 AM [facility] NRBC Absolute 0.00 <0.10 K/mcL LAB HEMETOLOGY METHOD 08/05/2025 9:24 AM EST [facility] Blood Venous blood specimen / Unknown Venipuncture / Unknown 08/05/2025 5:47 AM EST 08/05/2025 9:02 AM EST Roe Mendoza MD LAB BLOOD ORDERABLES Final Resul t [facility] [address] [place] [address], documented in this encounter Visit Diagnoses Diagnosis Cardiogenic shock ([facility] V24, [facility] V28) Cardiogenic shock Acute on chronic systolic (congestive) heart failure ([facility] V24, [facility] V28) Chronic kidney disease, stage 3b ([facility] V24, [facility] V28) Non-ST elevation (NSTEMI) myocardial infarction ([facility] V24, [facility] V28) Chronic systolic (congestive) heart failure ([facility] V24, [facility] V28) Atelectasis Pulmonary collapse Essential (primary) hypertension Unspecified essential hypertension Hyperlipidemia, unspecified Acute kidney failure, unspecified ([facility] V24) Acute kidney failure, unspecified Other acidosis Hypokalemia Hypopotassemia Hypo-osmolality and hyponatremia Ischemic cardiomyopathy Other specified forms of chronic ischemic heart disease Atrioventricular block, complete ([facility] V24, [facility] V28) Atrioventricular block, complete Presence of cardiac pacemaker Cardiac pacemaker in situ documented in this encounter Care Teams Electric Motor Mechanic Relationship Specialty Start Date End Date Roe Mendoza MD [address] [place] [id number] PCP - General Geriatric Medicine 08/05/25 documented as of this encounter
--- OUTSIDE RECORDS SUMMARY | 2025-09-12 17:05 | XMS_ITS | Encounter Summary ---
Author Organization [facility] Address [address] [place] [address] Care Team Providers Care Clinical Science Consultant Name Role Phone Roe Mendoza MD Primary Care Provider [phone] Encounter Details Date Type Department Care Team (Late st Contact Info) Description 08/17/2025 Lab Requisition [facility] - Main Lab [address] [facility] [place] [phone] Roe Mendoza MD [address] [place] [address] Acute on chronic systolic (congestive) heart failure [...] V28) documented in this encounter Care Teams Clinical Science Consultant Relationship Specialty Start Date End Date Roe Mendoza MD [address] [place] [id number] PCP - General Geriatric Medicine 08/05/25 documented as of this encounter
--- OUTSIDE RECORDS SUMMARY | 2025-09-12 17:05 | XMS_ITS | Clinical Summary ---
Author Organization [address] Address [address] [place] [address] Phone Care Team Providers Care Supplier Development Manager Name Role Phone Roe Mendoza MD Primary Care Provider [phone] Encounters Date Type Department Care Team Description 08/17/2025 Lab Requisition [facility] [address] [place] [phone] Roe Mendoza MD Acute on chronic systolic (congestive) heart failure (CMS/HCC V24, CMS/HCC V28); Chronic kidney disease, stage 3b (CMS/HCC V24, CMS/HCC V28) 08/11/2025 Lab Requisition [facility] [address] [place] [phone] Roe Mendoza MD Acute on chronic systolic (congestive) heart failure (CMS/HCC V24, CMS/HCC V28); Chronic kidney disease, stage 3b (CMS/HCC V24, CMS/HCC V28); Cardiogenic shock (CMS/HCC V24, CMS/HCC V28) 08/05/2025 Lab Requisition [facility] [address] [place] [address] Roe Mendoza MD Cardiogenic shock (CMS/HCC V24, CMS/HCC V28); Acute on chronic systolic (congestive) heart failure (CMS/HCC V24, CMS/HCC V28); Chronic kidney disease, stage 3b (CMS/HCC V24, CMS/HCC V28); Non-ST elevation (NSTEMI) myocardial infarction (CMS/HCC V24, CMS/HCC V28); Chronic systolic (congestive) heart failure (CMS/HCC V24, CMS/HCC V28); Atelectasis; Essential (primary) hypertension; Hyperlipidemia, unspecified; Acute kidney failure, unspecified (CMS/[facility] V24); Other acidosis; Hypokalemia; Hypo-osmolality and hyponatremia; Ischemic cardiomyopathy; Atrioventricular block, complete (CMS/HCC V24, CMS/[facility] V28); Presence of cardiac pacemaker from Last [...] K/mcL LAB HEMETOLOGY METHOD 08/12/2025 9:[address] [facility] RBC 3.50(L) 4.50 - 5.50 M/mcL LAB HEMETOLOGY METHOD 08/12/2025 9:[address] [facility] Hemoglobin 10.3(L) 13.5 - 17.5 g/dL LAB HEMETOLOGY METHOD 08/12/2025 9:[address] [facility] Hematocrit 34.6(L) 42.0 - 54.0 % LAB HEMETOLOGY METHOD 08/12/2025 9:[address] [facility] MCV 97.7 79.0 - 98.0 FL LAB HEMETOLOGY METHOD 08/12/2025 9:[address] [facility] MCH 29.1 27.0 - 32.0 pcg LAB HEMETOLOGY METHOD 08/12/2025 9:[address] [facility] MCHC 29.8(L) 32.0 - 37.0 g/dL LAB HEMETOLOGY METHOD 08/12/2025 9:[address] [facility] RDW 17.0(H) 11.0 - 15.0 % LAB HEMETOLOGY METHOD 08/12/2025 9:[address] [facility] Platelets 144 130 - 400 K/mcL LAB HEMETOLOGY METHOD 08/12/2025 9:[address] [facility] MPV 10.2 7.0 - 11.0 FL LAB HEMETOLOGY METHOD 08/12/2025 9:[address] [facility] NRBC 0.0 <1.0 % LAB HEMETOLOGY METHOD 08/12/2025 9:[address] [facility] NRBC Absolute 0.00 <0.10 K/mcL LAB HEMETOLOGY METHOD 08/12/2025 9:[address] [facility] Blood Venous blood specimen / Unknown Venipuncture / Unknown 08/12/2025 5:31 AM EST 08/12/2025 9:17 AM EST Roe Mendoza MD LAB BLOOD ORDERABLES Final Resul t [facility] [address] [place] [address], [place] [phone] * (ABNORMAL) Basic metabolic panel (08/12/2025 5:31 AM EST) Sodium 142 133 - 145 mmol/L 08/12/2025 10:[address] [facility] Potassium 5.0 3.5 - 5.5 mmol/L 08/12/2025 10:[address] [facility] Chloride 107 96 - 110 mmol/L 08/12/2025 10:[address] [facility] CO2 19(L) 21 - 32 mmol/L 08/12/2025 10:[address] [facility] Anion Gap 16(H) 3 - 11 08/12/2025 10:[address] [facility] Glucose 80 70 - 100 mg/dL 08/12/2025 10:[address] [facility] BUN 38(H) 5 - 25 mg/dL 08/12/2025 10:[address] [facility] Creatinine 2.51(H) 0.70 - 1.30 mg/dL 08/12/2025 10:[address] [facility] eGFR 26(L) >=60 mL/min/1. 73m2 08/12/2025 10:[address] [facility] Comment:Calculation based on the Chronic Kidney Disease Epidemiology Collaboration (CKD-EPI) equation refit without adjustment for race. BUN/Creatinine Ratio 15.1 08/12/2025 10:12 AM EST [facility] Calcium 8.3(L) 8.5 - 10.5 mg/dL 08/12/2025 10:12 AM EST [facility] Blood Venous blood specimen / Unknown Venipuncture / Unknown 08/12/2025 5:31 AM EST 08/12/2025 9:17 AM EST us Roe Mendoza MD LAB BLOOD ORDERABLES Final Resul t [facility] [address] [place] [address], [place] [phone] * Vitamin B12 and folate (08/05/2025 5:47 AM EST) Pathologist [facility] Vitamin B-12 591 250 - 900 pcg/mL LAB CHEMISTRY METHOD 08/05/2025 10:16 AM EST [facility] Folate 4.2 2.8 - 17.0 ng/ml LAB CHEMISTRY METHOD 08/05/2025 10:16 AM EST [facility] Blood Venous blood specimen / Unknown Venipuncture / Unknown 08/05/2025 5:47 AM EST 08/05/2025 9:02 AM EST us Roe Mendoza MD LAB BLOOD ORDERABLES Final Resul t [facility] [address] [place] [address], [place] [phone] * (ABNORMAL) Vitamin D 25 hydroxy (08/05/2025 5:47 AM EST) Vit D, 25-Hydroxy 24.1(L) 30.0 - 80.0 ng/mL LAB CHEMISTRY METHOD 08/05/2025 10:46 AM EST [facility] Blood Venous blood specimen / Unknown Venipuncture / Unknown 08/05/2025 5:47 AM EST 08/05/2025 9:02 AM EST Roe Mendoza MD LAB BLOOD ORDERABLES Final Resul t [facility] [address] [place] [address], * (ABNORMAL) Comprehensive metabolic panel (08/05/2025 5:47 AM EST) Sodium 141 133 - 145 mmol/L LAB CHEMISTRY METHOD 08/05/2025 9:[address] [facility] Potassium 4.1 3.5 - 5.5 mmol/L LAB CHEMISTRY METHOD 08/05/2025 9:[address] [facility] Chloride 105 96 - 110 mmol/L LAB CHEMISTRY METHOD 08/05/2025 9:[address] [facility] CO2 25 21 - 32 mmol/L LAB CHEMISTRY METHOD 08/05/2025 9:[address] [facility] Anion Gap 11 3 - 11 LAB CHEMISTRY METHOD 08/05/2025 9:[address] [facility] Glucose 90 70 - 100 mg/dL LAB CHEMISTRY METHOD 08/05/2025 9:[address] [facility] BUN 42(H) 5 - 25 mg/dL LAB CHEMISTRY METHOD 08/05/2025 9:[address] [facility] Creatinine 2.40(H) 0.70 - 1.30 mg/dL LAB CHEMISTRY METHOD 08/05/2025 9:[address] [facility] eGFR 28(L) >=60 mL/min/1. 73m2 LAB CHEMISTRY METHOD 08/05/2025 9:[address] [facility] Comment:Calculation based on the Chronic Kidney Disease Epidemiology Collaboration (CKD-EPI) equation refit without adjustment for race. BUN/Creatinine Ratio 17.5 LAB CHEMISTRY METHOD 08/05/2025 9:[address] [facility] Calcium 8.5 8.5 - 10.5 mg/dL LAB CHEMISTRY METHOD 08/05/2025 9:[address] [facility] AST (SGOT) 22 10 - 42 unit/L LAB CHEMISTRY METHOD 08/05/2025 9:[address] [facility] ALT (SGPT) 28 10 - 60 unit/L LAB CHEMISTRY METHOD 08/05/2025 9:[address] [facility] Alkaline Phosphatase 146(H) 42 - 121 unit/L LAB CHEMISTRY METHOD 08/05/2025 9:[address] [facility] Total Protein 6.4 6.0 - 8.0 g/dL LAB CHEMISTRY METHOD 08/05/2025 9:[address] [facility] Albumin 3.0(L) 3.2 - 5.0 g/dL LAB CHEMISTRY METHOD 08/05/2025 9:[address] [facility] Total Bilirubin 0.5 0.0 - 1.4 mg/dL LAB CHEMISTRY METHOD 08/05/2025 9:[address] [facility] Blood Venous blood specimen / Unknown Venipuncture / Unknown 08/05/2025 5:47 AM EST 08/05/2025 9:02 AM EST us Roe Mendoza MD LAB BLOOD ORDERABLES Final Resul t [facility] [address] [place] [address], from Last 3 Months Insurance Care Teams Supplier Development Manager Relationship Specialty Start Date End Date Roe Mendoza MD [address] [place], [place] [phone] PCP - General Geriatric Medicine 08/05/25
--- OUTSIDE RECORDS SUMMARY | 2025-09-12 17:05 | XMS_ITS | Clinical Summary ---
Author Organization Formerly [facility] Facility Address [address] [place] [address], [place] [address] Care Team Providers Care Commercial Lines Underwriter Name Role Phone Unavailable Primary Care Provider [...] patient's age to complete this topic Insurance [facility]
== END 2025-09-12 14:45 | disposition home or self-care (01) ==
LOC: HO.HCS 13:38
PROVIDERS: PCP Student in an Organized Health Care Education/Training Program; Visit Provider Nurse Practitioner Family
DX: I25.10 Atherosclerotic heart disease of native coronary artery without angina pectoris (principal); I25.5 Ischemic cardiomyopathy; Z98.890 Other specified postprocedural states; Z95.810 Presence of automatic (implantable) cardiac defibrillator; I10 Essential (primary) hypertension; I48.92 Unspecified atrial flutter; Z86.74 Personal history of sudden cardiac arrest; Z09 Encounter for follow-up examination after completed treatment for conditions other than malignant neoplasm
CPT/HCPCS: 93010; 99214; G2211

== ENCOUNTER → 2025-09-12 13:38 | Outpatient (BNVA) | payer MEDICARE, SELFPAY | PROVIDERS: PCP Student in an Organized Health Care Education/Training Program; Visit Provider Nurse Practitioner Family | DX: Z09 Encounter for follow-up examination after completed treatment for conditions other than malignant neoplasm (principal); I25.10 Atherosclerotic heart disease of native coronary artery without angina pectoris; I25.5 Ischemic cardiomyopathy; Z95.810 Presence of automatic (implantable) cardiac defibrillator; I10 Essential (primary) hypertension; I48.92 Unspecified atrial flutter; Z86.74 Personal history of sudden cardiac arrest | CPT/HCPCS: 93005; 99212 ==